=== PATIENT | male | born 1955 | race Caucasian/White ===

== ENCOUNTER → 2016-08-30 | Outpatient (CLI) | payer OTHER, MEDICAID ==
[~2016-08-30] MED LIST: AMLO5 PO; ASPI325T PO; ASPI81TA11 PO; ATOR40TA16 PO; AZIT250T3 PO; BAYETES; CARV6.252 PO; CEFT500T3 PO; COMMODE 3-IN-11 MIS; CYAN1TAB24 PO; DOCU1CAP39 PO; HYDR-3366 PO; HYDR12.57 PO; LEVEMIR SQ; LEVO.1 PO; LISI10TA3 PO; LYRI100C PO; LYRI75CA PO; MELO7.5T4 PO; NORT50CA PO; NOVOLOGP2 SQ; NOVOLOGSS SQ; OMEP20TA PO; PLAV75TA29 PO; SUCR1S PO; SUCR1TAB PO; THERM PO; WALKER WHEELS/F1 MIS; WHEEMIS3
[2016-08-30 16:32] LABS: HEMOGLOBIN A1a 1.2 %; HEMOGLOBIN A1b 1.1 %; HEMOGLOBIN Ao 79.9 %; HEMOGLOBIN F 1.5 %
== END ==
LOC: CLAB 12:14
PROVIDERS: ATTEND Family Medicine
DX: I10 Essential (primary) hypertension (principal); I73.9 Peripheral vascular disease, unspecified; Z89.611 Acquired absence of right leg above knee
CPT/HCPCS: 36415; 83036

== ENCOUNTER 2016-10-17 15:28 | Inpatient (IN) | payer MEDICAID, OTHER ==
[~2016-10-17] VITALS: Ht 182.9 cm; Wt 65.0 kg
[~2016-10-17 15:28] MED LIST changes: -ASPI325T PO; -ASPI81TA11 PO; -AZIT250T3 PO; -CEFT500T3 PO; -LYRI100C PO; -NOVOLOGP2 SQ; -SUCR1S PO; -SUCR1TAB PO
[2016-10-17 15:30] VITALS: BP 81/48; PULSE 87; RESP 12; TEMP 97.4; O2SAT 94
--- NOTE | 2016-10-17 15:34 | PD ---
Physical Exam Date Seen by Provider: Oct 17, 2016 Time Seen by Provider: 15:32 Narrative 61 YOWM C/O DIZZINESS, SOB, BACK PAIN COUGH AND GENERAL MALAISE. SICK FOR 8 DAYS. NO F/C VITALS NOTED. AWAITING BED PLACEMENT Data Data Last Documented VS Vital Signs Date Time Temp Pulse Resp B/P Pulse Ox O2 Delivery O2 Flow Rate FiO2 10/17/16 15:30 97.4 87 12 81/48 94 MDM Medical Record Reviewed: Yes Supervised Visit with ALISSON: Yes Channing Bales Oct 17, 2016 15:34
[2016-10-17 15:40] VITALS: BP 88/51; PULSE 86; RESP 14; TEMP 98.7; O2SAT 96
[2016-10-17] MEDS ORDERED: SODIUM CHLOR 0.9% 1000 ML INJ 1,000 ML IV ONE ×2 (15:48)
--- NOTE | 2016-10-17 15:57 | PD ---
HPI Chief Complaint: Cold / Flu Symptoms Time Seen by Provider: 15:51 Travel History International Travel<30 days: No Contact w/Intl Traveler<30days: No Traveled to known affect area: No History of Present Illness HPI Male presenting to the emergency department for evaluation of hypotension. Patient states his doctor sent him to the emergency department because of his low blood pressure. Additionally patient has been feeling sick for the last 8 days with nausea, coughing. His symptoms started out with a sore throat and nasal congestion which has moved to chest congestion. Patient denies any vomiting or diarrhea. He has mild epigastric abdominal pain. Patient reports that he has been unable to keep his blood sugars down. He is insulin-dependent diabetic he is unsure if he is a type I or type II, he stated that it depends on which Dr. you ask. Patient reports his blood sugars have been 500-600 at times. Patient took all 3 of his blood pressure medications this morning which include lisinopril, carvedilol, amlodipine. PFSH Past Medical History Hx Anticoagulant Therapy: Yes Arthritis: Yes Asthma: No Autoimmune Disease: No Blood Disorders: No Anxiety: Yes Depression: Yes Heart Rhythm Problems: No Cancer: No High Cholesterol: Yes Chemotherapy: No Chest Pain: No Congestive Heart Failure: No COPD: No Cerebrovascular Accident: No Coronary Artery Disease: Yes Diabetes: Yes Diminished Hearing: Yes Gastrointestinal Disorders: Yes (ESOPHAGEAL ULCER?) GERD: Yes Glaucoma: No Genitourinary: No Headaches: No Hepatitis: No Hiatal Hernia: No Hypertension: Yes Immune Disorder: No Implanted Vascular Access Dvce: No Kidney Stones: No Musculoskeletal: Yes (cervical and lumbar spine pt states he has bulging disc) Neurologic: Yes (NEUROPATHY pvd) Psychiatric: No Reproductive: No Respiratory: No Immunizations Current: No Migraines: No Myocardial Infarction: Yes Radiation Therapy: No Renal Failure: No Seizures: Yes (PER PT SECONDARY TO HYPOGLYCEMIA) Sickle Cell Disease: No Sleep Apnea: No Thyroid Disease: Yes Ulcer: No PNEUMOCCOCAL Vaccine (Year): 2 Past Surgical History Abdominal Surgery: Yes (EXP. LEFT BRACHIAL PLEXIS,APPEND., COLECTOMY) AICD: No Appendectomy: Yes Arteriovenous Shunt: No Body Medical Devices: PIN-- RIGHT LEG Cardiac Surgery: Yes (CABGX4) Cholecystectomy: No Coronary Artery Bypass Graft: Yes (2004) Ear Surgery: No Endocrine Surgery: No Eye Surgery: No Genitourinary Surgery: No Gynecologic Surgery: No Insulin Pump: No Joint Replacement: No Neurologic Surgery: No Oral Surgery: No Pacemaker: No Thoracic Surgery: Yes (L5, S1, fusions) Tonsillectomy: Yes Other Surgery: Yes (2 HYDROCELE) Social History Alcohol Use: No Tobacco Use: No (reports quit 12/15/15) Substance Use: No Allergies-Medications (Allergen,Severity, Reaction): Coded Allergies: Morphine (Verified Adverse Reaction, Severe, STS HE BECOMES VIOLENT., ) Uncoded Allergies: UNFRACTIONATED HEPARIN (Adverse Reaction, Severe, PT UNSURE OF REACTION, ) patient states he's not allergic, " I just bleed easily", explained to patient drug's purpose. Reported Meds & Prescriptions Reported Meds & Active Scripts Active Hydrochlorothiazide 12.5 Mg Cap 12.5 Mg PO DAILY Lisinopril 10 Mg Tab 10 Mg PO Q12HR Norvasc (Amlodipine Besylate) 5 Mg Tab 5 Mg PO DAILY Levemir Inj (Insulin Detemir) 1,000 unit/ 10 ML Vial 10 Units SQ HS 30 Days Plavix (Clopidogrel Bisulfate) 75 Mg Tab 75 Mg PO DAILY Synthroid (Levothyroxine Sodium) 100 Mcg Tab 100 Mcg PO DAILY@06 Atorvastatin (Atorvastatin Calcium) 40 Mg Tab 40 Mg PO DAILY Thera M Plus (Multivitamins/Minerals Therapeutic) 1 Tab 1 Tab PO DAILY Dok (Docusate Sodium) 100 Mg Cap 100 Mg PO BID PRN [place] (Hydrocodone-Acetaminophen) 10-325 Mg Tab 1 Tab PO Q6HR Carvedilol 6.25 Mg Tab 6.25 Mg PO BID Omeprazole 20 Mg Tab 20 Mg PO BID Nortriptyline (Nortriptyline HCl) 50 Mg Cap 50 Mg PO HS Reported Novolog Inj (Insulin Aspart) 1,000 Unit/10 Ml Vial Unknown Dose SQ ACHS Max dose at bedtime:( )units; sugars less than 70,(0) units; sugars 150-199,(5) units; sugars 200-249,(10) units; sugars 250-299,(15) units; sugars 300-349,(20)units; sugars greater than 349,(25)units B12 (Cyanocobalamin) 1,000 Mcg Tab 1,000 Mcg PO DAILY Meloxicam 7.5 Mg Tab 7.5 Mg PO DAILY Lyrica (Pregabalin) 75 Mg Cap 75 Mg PO TID Levemir Inj (Insulin Detemir) 1,000 unit/ 10 ML Vial 17 Units SQ AC BREAKFAST Do not mix with any other Insulin. Review of Systems Except as stated in HPI: all other systems reviewed are Neg General / Constitutional: Positive: Other (fatigue), No: Fever HENT: Positive: Sore Throat, Congestion, No: Headaches Cardiovascular: No: Chest Pain or Discomfort, Tachycardia Respiratory: Positive: Cough, Shortness of Breath, Pleuritic Pain Gastrointestinal: Positive: Nausea, Abdominal Pain (discomfort), No: Vomiting , Diarrhea Genitourinary: No: Dysuria Musculoskeletal: No: Myalgias Neurologic: Positive: Weakness, No: Dizziness, Focal Abnormalities, Change in Mentation Physical Exam Narrative GENERAL: Thin, well-developed, alert male. Resting comfortably in no acute distress SKIN: Focused skin assessment warm/dry. HEAD: Atraumatic. Normocephalic. EYES: Pupils equal and round. No scleral icterus. No injection or drainage. ENT: No nasal bleeding or discharge. Mucous membranes pink and moist. NECK: Trachea midline. No JVD. CARDIOVASCULAR: Regular rate and rhythm. No murmur appreciated. RESPIRATORY: No accessory muscle use. Clear to auscultation. Diminished in bases with scattered expiratory wheezing. GASTROINTESTINAL: Abdomen soft, non-tender, nondistended. Hepatic and splenic margins not palpable. MUSCULOSKELETAL: No obvious deformities. No clubbing. No cyanosis. No edema. Right AKA. NEUROLOGICAL: Awake and alert. No obvious cranial nerve deficits. Motor grossly within normal limits. Normal speech. PSYCHIATRIC: Appropriate mood and affect; insight and judgment normal. Data Data Last Documented VS Orders Complete Blood Count With Diff (10/17/16 15:48) Comprehensive Metabolic Panel (10/17/16 15:48) Prothrombin Time / Inr (Pt) (10/17/16 15:48) Act Partial Throm Time (Ptt) (10/17/16 15:48) Lactic Acid Sepsis Protocol (10/17/16 15:48) Magnesium (Mg) (10/17/16 15:48) Ckmb (Isoenzyme) Profile (10/17/16 15:48) Troponin I (10/17/16 15:48) Urinalysis - C+S If Indicated (10/17/16 15:48) Influenzae A/B Antigen (10/17/16 15:48) Blood Culture (10/17/16 15:48) Chest, Pa & Lat (10/17/16 15:48) Blood Glucose (10/17/16 15:48) Ecg Monitoring (10/17/16 15:48) Iv Access Insert/Monitor (10/17/16 15:48) Oximetry (10/17/16 15:48) Oxygen Administration (10/17/16 15:48) Ondansetron Inj (Zofran Inj) (10/17/16 16:00) Sodium Chlor 0.9% 1000 Ml Inj (Ns 1000 M (10/17/16 15:48) Sodium Chlor 0.9% 1000 Ml Inj (Ns 1000 M (10/17/16 15:48) Vancomycin Inj (Vancomycin Inj) (10/17/16 17:39) Piperacil-Tazo 4.5 Gm Premix (Zosyn 4.5 (10/17/16 17:39) Vascular Access Team Consult PRN (10/17/16 18:18) Ct Abd/Pel W Iv Contrast(Rout) (10/17/16 ) Lactic Acid (10/17/16 19:16) Vascular Poc Ultrasound (10/17/16 ) Iohexol 350 Inj (Omnipaque 350 Inj) (10/17/16 20:27) Acetamin-Hydrocod 325-5 Mg ([place] 5-325 (10/17/16 21:15) Diet 1800 Ada Cons Carb (10/18/16 Breakfast) Diet Heart Healthy (10/18/16 Breakfast) Vital Signs (Adult) KARSON.Q4H (10/17/16 21:01) Blood Glucose Goal (Criteria) (10/17/16 21:01) Hypoglycemia 51 - 69 Mg/Dl (10/17/16 21:01) Hypoglycemia 50 Mg/Dl Or < (10/17/16 21:01) Notify Dr: Other (10/17/16 21:01) Dextrose 50% In Jareth (Vial) Inj (D50w (Vi (10/17/16 21:15) Glucagon Inj (Glucagon Inj) (10/17/16 21:15) Insulin Aspart Supplemtl Scale (Novolog (10/18/16 07:00) Sodium Chlor 0.9% 1000 Ml Inj (Ns 1000 M (10/17/16 21:15) Admit Order (Ed Use Only) (10/17/16 21:02) Complete Blood Count With Diff (10/18/16 06:00) Basic Metabolic Panel (Bmp) (10/18/16 06:00) Lactic Acid (10/18/16 06:00) Ondansetron Inj (Zofran Inj) (10/17/16 21:15) Acetaminophen (Tylenol) (10/17/16 21:15) Labs MDM Medical Decision Making Medical Screen Exam Complete: Yes Emergency Medical Condition: Yes Interpretation(s) Last Impressions Chest X-Ray 10/17/16 1548 Signed Impressions: Service Date/Time: Monday, October 17, 2016 16:09 - CONCLUSION: 1. COPD changes. No acute abnormality. Jamil Rocha MD Laboratory Tests Test 10/17/16 10/17/16 16:00 16:15 White Blood Count 13.8 TH/MM3 Red Blood Count 3.88 MIL/MM3 Hemoglobin 11.7 GM/DL Hematocrit 34.6 % Mean Corpuscular Volume 89.3 FL Mean Corpuscular Hemoglobin 30.0 PG Mean Corpuscular Hemoglobin 33.6 % Concent Red Cell Distribution Width 14.5 % Platelet Count 340 TH/MM3 Mean Platelet Volume 8.6 FL Neutrophils (%) (Auto) 80.2 % Lymphocytes (%) (Auto) 13.5 % Monocytes (%) (Auto) 4.8 % Eosinophils (%) (Auto) 0.9 % Basophils (%) (Auto) 0.6 % Neutrophils # (Auto) 11.0 TH/MM3 Lymphocytes # (Auto) 1.9 TH/MM3 Monocytes # (Auto) 0.7 TH/MM3 Eosinophils # (Auto) 0.1 TH/MM3 Basophils # (Auto) 0.1 TH/MM3 CBC Comment DIFF FINAL Differential Comment Prothrombin Time 10.5 SEC Prothromb Time International 1.0 RATIO Ratio Activated Partial 33.9 SEC Thromboplast Time Sodium Level 133 MEQ/L Potassium Level 4.1 MEQ/L Chloride Level 99 MEQ/L Carbon Dioxide Level 20.2 MEQ/L Anion Gap 14 MEQ/L Blood Urea Nitrogen 21 MG/DL Creatinine 1.50 MG/DL Estimat Glomerular Filtration 48 ML/MIN Rate Random Glucose 259 MG/DL Calcium Level 9.0 MG/DL Magnesium Level 2.1 MG/DL Total Bilirubin 0.4 MG/DL Aspartate Amino Transf 8 U/L (AST/SGOT) Alanine Aminotransferase 14 U/L (ALT/SGPT) Alkaline Phosphatase 154 U/L Total Creatine Kinase 32 U/L Troponin I LESS THAN 0.02 NG/ML Total Protein 7.2 GM/DL Albumin 2.9 GM/DL Lactic Acid Level 2.5 mmol/L Vital Signs Date Time Temp Pulse Resp B/P Pulse Ox O2 Delivery O2 Flow Rate FiO2 10/17/16 15:40 98.7 86 14 88/51 96 Room Air 10/17/16 15:30 97.4 87 12 81/48 94 Differential Diagnosis Sepsis versus medication side effects versus pneumonia versus influenza versus DKA versus other Narrative Course Patient's 61-year-old male presenting to the emergency department for evaluation of hypotension as well as cold of flu symptoms and ongoing for several days. Additionally patient's blood sugars have an elevated secondary to the ongoing illness. Labs and imaging ordered and pending, IV access initiated, patient placed on monitor monitoring and continuous pulse oximetry. CBC shows an elevated white count at 13.8 with left shift History of elevated BUN and creatinine at 21 and 1.50, lactic acid 2.5, troponin less than 0.02, glucose 259 Coags reviewed and unremarkable Influenza screen is negative for flu a or B Chest x-ray shows COPD changes with no acute abnormality. CT scan abdomen and pelvis ordered and pending. Repeat lactic acid ordered and pending. Repeat lactic acid 2.5, Dr. Araya reviewed CT scan of the abdomen and pelvis and does not believe that the source of infection. [facility] paged for admission under observation for IV fluids and to monitor blood cultures. Dr. Nobles returned page and accepted admission. Pt agreeable to stay. Pt placed under obs to assess blood cultures and labs. Sepsis Criteria SIRS Criteria (2 or more): WBC > 11406, < 4000 or > 10% bands Severe Sepsis (+one): Hypotension, Lactate >2, Acute Oliguria/Renal Failure Criteria Outcome: Meets severe sepsis criteria Diagnosis Primary Impression: Sepsis Qualified Code: A41.9 - Sepsis, due to unspecified organism Admitting Information Admitting Physician Requests: Observation Scripts Cefuroxime (Ceftin)500 Mg [id number] Mg PO BID #10 TAB Ref 0 Prov:Ross Armendariz 10/19/16 Azithromycin 250 Mg [id number] Mg PO DAILY #5 TAB Ref 0 Prov:Ross Armendariz DELFINO 10/19/16 Condition: Stable Cary Monroy DERMATOLOGY PHYSICIAN ASSISTANT Oct 17, 2016 15:57 Platelet Count 340 TH/MM3 Mean Platelet Volume 8.6 FL Neutrophils (%) (Auto) 80.2 % Lymphocytes (%) (Auto) 13.5 % Monocytes (%) (Auto) 4.8 % Eosinophils (%) (Auto) 0.9 % Basophils (%) (Auto) 0.6 % Neutrophils # (Auto) 11.0 TH/MM3 Lymphocytes # (Auto) 1.9 TH/MM3 Monocytes # (Auto) 0.7 TH/MM3 Eosinophils # (Auto) 0.1 TH/MM3 Basophils # (Auto) 0.1 TH/MM3 CBC Comment DIFF FINAL Differential Comment Prothrombin Time 10.5 SEC Prothromb Time International 1.0 RATIO Ratio Activated Partial 33.9 SEC Thromboplast Time Sodium Level 133 MEQ/L Potassium Level 4.1 MEQ/L Chloride Level 99 MEQ/L Carbon Dioxide Level 20.2 MEQ/L Anion Gap 14 MEQ/L Blood Urea Nitrogen 21 MG/DL Creatinine 1.50 MG/DL Estimat Glomerular Filtration 48 ML/MIN Rate Random Glucose 259 MG/DL Calcium Level 9.0 MG/DL Magnesium Level 2.1 MG/DL Total Bilirubin 0.4 MG/DL Aspartate Amino Transf 8 U/L (AST/SGOT) Alanine Aminotransferase 14 U/L (ALT/SGPT) Alkaline Phosphatase 154 U/L Total Creatine Kinase 32 U/L Troponin I LESS THAN 0.02 NG/ML Total Protein 7.2 GM/DL Albumin 2.9 GM/DL Lactic Acid Level 2.5 mmol/L Vital Signs Date Time Temp Pulse Resp B/P Pulse Ox O2 Delivery O2 Flow Rate FiO2 10/17/16 15:40 98.7 86 14 88/51 96 Room Air 10/17/16 15:30 97.4 87 12 81/48 94 Differential Diagnosis Sepsis versus medication side effects versus pneumonia versus influenza versus DKA versus other Narrative Course Patient's 61-year-old male presenting to the emergency department for evaluation of hypotension as well as cold of flu symptoms and ongoing for several days. Additionally patient's blood sugars have an elevated secondary to the ongoing illness. Labs and imaging ordered and pending, IV access initiated, patient placed on monitor monitoring and continuous pulse oximetry. CBC shows an elevated white count at 13.8 with left shift History of elevated BUN and creatinine at 21 and 1.50, lactic acid 2.5, troponin less than 0.02, glucose 259 Coags reviewed and unremarkable Influenza screen is negative for flu a or B Chest x-ray shows COPD changes with no acute abnormality. CT scan abdomen and pelvis ordered and pending. Repeat lactic acid ordered and pending. Repeat lactic acid 2.5, Dr. Araya reviewed CT scan of the abdomen and pelvis and does not believe that the source of infection. [facility] paged for admission under observation for IV fluids and to monitor blood cultures. Sepsis Criteria SIRS Criteria (2 or more): WBC > 99213, < 4000 or > 10% bands Severe Sepsis (+one): Hypotension, Lactate >2, Acute Oliguria/Renal Failure Criteria Outcome: Meets severe sepsis criteria Diagnosis Primary Impression: Sepsis Qualified Code: A41.9 - Sepsis, due to unspecified organism Admitting Information Admitting Physician Requests: Observation Condition: Stable Cary Monroy [facility] Oct 17, 2016 15:57
[2016-10-17] MEDS ORDERED: ONDANSETRON HCL 4 MG/2 ML VIAL IV ONE (16:00)
[2016-10-17 16:11] LABS: BASOPHIL # 0.1 TH/MM3 (0-0.2); BASOPHIL % 0.6 % (0.0-2.0); EOSINOPHIL # 0.1 TH/MM3 (0-0.4); EOSINOPHIL % 0.9 % (0.0-4.0); HEMATOCRIT 34.6 % (39.0-51.0); HEMO FLAGS DIFF FINAL; LYMPH % 13.5 % (9.0-44.0); LYMPHOCYTE # 1.9 TH/MM3 (1.0-4.8); MEAN CELL VOLUME 89.3 FL (80.0-100.0); MEAN CORPUSCULAR HGB CONC 33.6 % (32.0-36.0); MONO % 4.8 % (0.0-8.0); NEUT % 80.2 % (16.0-70.0); PLATELET COUNT 340 TH/MM3 (150-450); RED BLOOD COUNT 3.88 MIL/MM3 (4.50-5.90); RED CELL DISTRIBUTION WIDTH 14.5 % (11.6-17.2); WHITE BLOOD COUNT 13.8 TH/MM3 (4.0-11.0)
[2016-10-17 16:22] LABS: APTT (PATIENT) 33.9 SEC (24.3-30.1); PROTHROMBIN TIME - PATIENT 10.5 SEC (9.8-11.6)
[2016-10-17] MEDS ORDERED: NOVOLOGP2 SQ (16:25)
[2016-10-17 16:35] LABS: ALT (GPT) 14 U/L (12-78); ANION GAP 14 MEQ/L (5-15); AST (GOT) 8 U/L (15-37); BICARBONATE 20.2 MEQ/L (21.0-32.0); BLOOD UREA NITROGEN 21 MG/DL (7-18); CHLORIDE 99 MEQ/L (98-107); GLOMERULAR FILTRATION RATE 48 ML/MIN (>89); MAGNESIUM 2.1 MG/DL (1.5-2.5); POTASSIUM 4.1 MEQ/L (3.5-5.1); SODIUM (NA) 133 MEQ/L (136-145)
[2016-10-17 16:38] LABS: ALKALINE PHOSPHATASE 154 U/L (45-117); TOTAL BILIRUBIN ADULT 0.4 MG/DL (0.2-1.0)
[2016-10-17 16:41] LABS: CREATINE KINASE 32 U/L (39-308)
--- NOTE | 2016-10-17 16:54 | RADRPT ---
EXAM DATE/TIME: 10/17/2016 16:09 [facility] COMPARISON: FOOT RIGHT COMPLETE ([id number]), June 12, 2016, 11:17. INDICATIONS : Low blood pressure, Weakness and Cough. MEDICAL HISTORY : Venous insufficiency. Hypertension. Myocardial infarction. SURGICAL HISTORY : CABG. Left lower leg amputation. ENCOUNTER: Initial ACUITY: 2 days PAIN SCORE: 0/10 LOCATION: Bilateral chest FINDINGS: The heart is normal in size. The patient is post median sternotomy. There are COPD changes. The lungs are otherwise clear. The visualized osseous structures demonstrate degenerative changes but are othe rwise intact. CONCLUSION: 1. COPD changes. No acute abnormality. Jamil Rocha MD on October 17, 2016 at 16:52 Board Certified Radiologist. This report was verified electronically.
[2016-10-17] MEDS ORDERED: VANCOMYCIN INJ 1,000 MG in SODIUM CHLOR 0.9% 250 ML INJ 250 ML IV STA (17:39)
[2016-10-17] MEDS ORDERED: PIPERACIL-TAZO 4.5 GM PREMIX 100 ML IV STA (17:39)
[2016-10-17 18:14] LABS: BLOOD, URINE NEG (NEG); GLUCOSE,URINE 1000 mg/dL (NEG); HYALINE CAST, URINE 7 /lpf (RARE); KETONE, URINE 150 mg/dL (NEG); NITRITE,URINE NEG (NEG); URINE COLOR YELLOW (YELLW/STRAW)
[2016-10-17 18:22] LABS: LACTIC ACID GHOST NOT REPORTABLE
[2016-10-17 18:25] LABS: COMMENT (UR) CATH-CULT NOT IND; CULTURE IF INDICATED CATH CULTURE NOT IND
[2016-10-17] MEDS ORDERED: IOHEXOL 350 MG/ML 10 ML VIAL (for RAD DIAG) IV ONE (20:27)
[2016-10-17 21:00] VITALS: BP 111/52; PULSE 95; RESP 16; O2SAT 95
[2016-10-17] MEDS ORDERED: DEXTROSE 50% IN WATER 50 ML VIAL(D50) IV PUSH PRN (21:15)
[2016-10-17] MEDS ORDERED: ONDANSETRON HCL 4 MG/2 ML VIAL IV PUSH PRN (21:15)
[2016-10-17] MEDS ORDERED: ACETAMINOPHEN/HYDROcodone 325 MG/5 MG TAB PO ONE (21:15)
[2016-10-17] MEDS ORDERED: GLUCAGON 1 MG/ML VIAL OTHER PRN (21:15)
--- NOTE | 2016-10-17 21:17 | RADRPT ---
EXAM DATE/TIME: 10/17/2016 20:00 [facility] COMPARISON: CT ABDOMEN & PELVIS W CONTRAST, June 21, 2015, 9:19. INDICATIONS : Epigastric abdomen pain,nausea. IV CONTRAST: 80 cc Omnipaque 350 (iohexol) IV ORAL CONTRAST: No oral contrast ingested. RADIATION DOSE: 6.90 CTDIvol (mGy) MEDICAL HISTORY : Seizures. Cardiovascular disease Hypertension.Diabetes SURGICAL HISTORY : Appendectomy. CABG ENCOUNTER: Initial ACUITY: 1 week PAIN SCALE: 7/10 LOCATION: epigastric abdomen TECHNIQUE: Volumetric scanning of the abdomen and pelvis was performed. Using automated exposure control and ad justment of the mA and/or kV according to patient size, radiation dose was kept as low as reasonably achievable to obtain optimal diagnostic quality images. FINDINGS: LOWER LUNGS: Abnormal appearance to the right lower lobe with diffuse areas of nodular opacity and some consolidat ion in the costophrenic angle. There is a smaller area of similar appearing opacity in the left lowe r lobe. No evidence of pleural effusion. LIVER: Homogeneous density without lesion. There is no dilation of the biliary tree. The gallbladder is no t identified with certainty; no hemoclips in the arpit however. SPLEEN: Normal size without lesion. PANCREAS: Within normal limits. KIDNEYS: Normal in size and shape. There is no mass, stone or hydronephrosis. ADRENAL GLANDS: Within normal limits. VASCULAR: Extensive wall calcification in nondilated abdominal aortic and iliac vessels. BOWEL/MESENTERY: No dilated loops of small or large bowel. Anastomosis sutures seen in the right lower quadrant in th e colon. Gas is seen diffusely throughout non-dilated loops of small bowel. ABDOMINAL WALL: Within normal limits. RETROPERITONEUM: There is no lymphadenopathy. BLADDER: No wall thickening or mass. REPRODUCTIVE: Within normal limits. INGUINAL: There is no lymphadenopathy or hernia. MUSCULOSKELETAL: Transpedicular screws in the lower lumbar spine. Diffuse osteopenia. CONCLUSION: 1. Abnormal appearance the lower lungs with patchy areas of nodular and partially consolidative infil trates. 2. No acute abnormalities seen in the abdomen or pelvis. Ananth Messina MD on October 17, 2016 at 21:03 Board Certified Radiologist. This report was verified electronically.
[2016-10-17] MEDS: SODIUM CHLOR 0.9% 1000 ML INJ 1,000 ML IV SCH (22:24)
[2016-10-17 22:40] VITALS: BP 101/56; PULSE 89; RESP 20; TEMP 100.1; O2SAT 93
[2016-10-17] MEDS: ACETAMINOPHEN 325 MG TAB PO PRN (22:52)
[2016-10-18] MEDS ORDERED: ACETAMINOPHEN/HYDROcodone 325 MG/10 MG TAB PO SCH (01:00)
[2016-10-18] MEDS: INSULIN DETEMIR 100 UNITS/ML VIAL SQ SCH ×3 (01:13→20:26)
[2016-10-18] MEDS: ACETAMINOPHEN/HYDROcodone 325 MG/10 MG TAB PO PRN ×3 (01:14→17:37)
[2016-10-18] MEDS ORDERED: RESP: ALBUTEROL 2.5 MG/IPRATROPIUM 0.5 MG NEB (PRN) NEB ×2 (02:15→16:00)
--- NOTE | 2016-10-18 02:38 | HHI.HP ---
[facility] Service [facility] Primary Care Physician Ro Vogel MD Admission Diagnosis SEPSIS UNKNOWN SOURCE Diagnoses: (1) Pneumonia Diagnosis: Principal Chief Complaint: cough Travel History International Travel<30 Days: No Contact w/Intl Traveler <30 Da: No Traveled to Known Affected Are: No Sepsis Criteria SIRS Criteria (2 or more): Heart rate over 90, WBC > 67533, < 4000 or > 10% bands Severe Sepsis (+one): Hypotension History of Present Illness patient is a 61 y/o male with history of CAD,diabetes, PVD who presented to ER with cough. he says that he's had this cough for the past eight days. cough is productive of yellowish sputum. he doesn't report any fevers but had some night sweats.he denies any chest pain, abdominal pain,vomiting, diarrhea. he says that his roommate was sick and ' that's probably how he got the flu'.he says that he has on and off sob along with his cough.he was hypotensive at the time of presentation to ER which improved after IV hydration. Review of Systems Constitutional: COMPLAINS OF: Night Sweats, DENIES: Fever, Weight loss, Chills Eyes: DENIES: Blurred vision, Diplopia, Vision loss, Double Vision Ears, nose, mouth, throat: DENIES: Tinnitus, Vertigo, Throat pain, Epistaxis Respiratory: COMPLAINS OF: Cough, Sputum production, Shortness of breath, DENIES: Apneas, Snoring, Wheezing, Hemoptysis Cardiovascular: DENIES: Chest pain, Palpitations, Syncope, Dyspnea on Exertion , PND, Lower Extremity Edema, Orthopnea, Claudication Gastrointestinal: DENIES: Abdominal pain, Black stools, Bloody stools, Constipation, Diarrhea, Nausea, Vomiting, Difficulty Swallowing, Anorexia Genitourinary: DENIES: Urinary frequency, Urgency, Hematuria, Dysuria Musculoskeletal: DENIES: Joint pain, Muscle aches, Stiffness, Joint Swelling Integumentary: DENIES: Rash Neurologic: DENIES: Abnormal gait, Headache, Localized weakness, Paresthesias, Seizures, Speech Problems, Tremor, Poor Balance Psychiatric: DENIES: Anxiety, Confusion, Mood changes, Depression, Hallucinations, Agitation, Suicidal Ideation, Homicidal Ideation, Delusions Past Family Social History Past Medical History CAD hypertension diabetes mellitus hypothyroidism PVD dyslipidemia Past Surgical History CABG right AKA abdominal surgery Reported Medications Hydrochlorothiazide 12.5 Mg Cap 12.5 Mg PO DAILY Lisinopril 10 Mg Tab 10 Mg PO Q12HR Norvasc (Amlodipine Besylate) 5 Mg Tab 5 Mg PO DAILY Levemir Inj (Insulin Detemir) 1,000 unit/ 10 ML Vial 10 Units SQ HS 30 Days Plavix (Clopidogrel Bisulfate) 75 Mg Tab 75 Mg PO DAILY Synthroid (Levothyroxine Sodium) 100 Mcg Tab 100 Mcg PO DAILY@06 Atorvastatin (Atorvastatin Calcium) 40 Mg Tab 40 Mg PO DAILY Thera M Plus (Multivitamins/Minerals Therapeutic) 1 Tab 1 Tab PO DAILY Dok (Docusate Sodium) 100 Mg Cap 100 Mg PO BID PRN [place] (Hydrocodone-Acetaminophen) 10-325 Mg Tab 1 Tab PO Q6HR Carvedilol 6.25 Mg Tab 6.25 Mg PO BID Omeprazole 20 Mg Tab 20 Mg PO BID Nortriptyline (Nortriptyline HCl) 50 Mg Cap 50 Mg PO HS Novolog Inj (Insulin Aspart) 1,000 Unit/10 Ml Vial Unknown Dose SQ ACHS Max dose at bedtime:( )units; sugars less than 70,(0) units; sugars 150-199,(5) units; sugars 200-249,(10) units; sugars 250-299,(15) units; sugars 300-349,(20)units; sugars greater than 349,(25)units B12 (Cyanocobalamin) 1,000 Mcg Tab 1,000 Mcg PO DAILY Meloxicam 7.5 Mg Tab 7.5 Mg PO DAILY Lyrica (Pregabalin) 75 Mg Cap 75 Mg PO TID Levemir Inj (Insulin Detemir) 1,000 unit/ 10 ML Vial 17 Units SQ AC BREAKFAST Do not mix with any other Insulin. Allergies: Coded Allergies: Morphine (Verified Adverse Reaction, Severe, STS HE BECOMES VIOLENT., ) Uncoded Allergies: UNFRACTIONATED HEPARIN (Adverse Reaction, Severe, PT UNSURE OF REACTION, ) patient states he's not allergic, " I just bleed easily", explained to patient drug's purpose. Active Ordered Medications Current Medications Ondansetron HCl 4 mg 4 mg ONCE ONCE IV Last administered on 10/17/16 16:24; Start 10/17/16 at 16:00; Stop 10/17/16 at 16:01; Status DC Sodium Chloride 1,000 ml @ 1,000 mls/hr Q1H ONCE IV Last administered on 16:24; Start 10/17/16 at 15:48; Stop 10/17/16 at 16:47; Status DC Sodium Chloride 1,000 ml @ 1,000 mls/hr Q1H ONCE IV Last administered on 16:24; Start 10/17/16 at 15:48; Stop 10/17/16 at 16:47; Status DC Vancomycin HCl 1000 mg/Sodium Chloride 250 ml @ 250 mls/hr ONCE STAT IV Last administered on 10/17/16 20:27; Start 10/17/16 at 17:39; Stop 10/17/16 at 18:38; Status DC Piperacillin Sod/ Tazobactam Sod (Zosyn 4.5 Gm Premix) 100 ml @ 200 mls/hr ONCE STAT IV Last administered on 10/17/16 18:06; Start 10/17/16 at 17:39; Stop 10/17/16 at 18:08; Status DC Iohexol (Omnipaque 350 Inj) 80 ml STK-MED ONCE IV Last administered on 20:27; Start 10/17/16 at 20:27; Stop 10/17/16 at 20:28; Status DC Acetaminophen/ Hydrocodone Bitart ([place] 5-325 Mg) 1 tab ONCE ONCE PO Last administered on 10/17/16 21:07; Start 10/17/16 at 21:15; Stop 10/17/16 at 21:16; Status DC Dextrose (D50w (Vial) Inj) 25 ml UNSCH PRN IV PUSH HYPOGLYCEMIA-SEE COMMENTS; Start 10/17/16 at 21:15 Glucagon (Glucagon Inj) 1 mg UNSCH PRN OTHER HYPOGLYCEMIA-SEE COMMENTS; Start 10/17/16 at 21:15 Insulin Aspart 1 1 ACHS SLIDING SCALE SQ ; Start 10/18/16 at 07:00 Sodium Chloride (NS 1000 ml Inj) 1,000 ml @ 100 mls/hr Q10H IV Last administered on 10/17/16 22:24; Start 10/17/16 at 21:15 Ondansetron HCl (Zofran Inj) 4 mg Q8HR PRN IV PUSH NAUSEA; Start 10/17/16 at 21: 15 Acetaminophen (Tylenol) 650 mg Q4H PRN PO FEVER Last administered on 10/17/16 22:52; Start 10/17/16 at 21:15 Insulin Detemir (Levemir Inj) 10 units HS SQ Last administered on 10/18/16 01: 13; Start 10/18/16 at 00:30 Acetaminophen/ Hydrocodone Bitart ([place] 10-325 Mg) 1 tab Q6HR PO ; Start at 01:00; Stop 10/18/16 at 01:01; Status DC Acetaminophen/ Hydrocodone Bitart ([place] 10-325 Mg) 1 tab Q6HR PRN PO PAIN Last administered on 10/18/16 01:14; Start 10/18/16 at 01:00 Family History not relevant to this presentation. Social History quit smoking.doesn't drink. Physical Exam Vital Signs Vital Signs Date Time Temp Pulse Resp B/P Pulse Ox O2 Delivery O2 Flow Rate FiO2 10/18/16 00:05 20 10/17/16 22:40 100.1 89 20 101/56 93 10/17/16 21:00 95 16 111/52 95 Room Air 10/17/16 16:05 97 Room Air 10/17/16 15:40 98.7 86 14 88/51 96 Room Air 10/17/16 15:30 97.4 87 12 81/48 94 Physical Exam GENERAL: This is a well-nourished, well-developed patient, in no apparent distress. SKIN: No rashes, ecchymoses or lesions. Cool and dry. HEAD: Atraumatic. Normocephalic. No temporal or scalp tenderness. EYES: Pupils equal round and reactive. Extraocular motions intact. No scleral icterus. No injection or drainage. ENT: Nose without bleeding, purulent drainage or septal hematoma. Throat without erythema, tonsillar hypertrophy or exudate. Uvula midline. Airway patent. NECK: Trachea midline. No JVD or lymphadenopathy. Supple, nontender, no meningeal signs. CARDIOVASCULAR: Regular rate and rhythm without murmurs, gallops, or rubs. RESPIRATORY: Clear to auscultation. Breath sounds equal bilaterally. No wheezes , rales, or rhonchi. GASTROINTESTINAL: Abdomen soft, non-tender, nondistended. No hepato-splenomegaly , or palpable masses. No guarding. MUSCULOSKELETAL: s/p right AKA NEUROLOGICAL: Awake and alert. Cranial nerves II through XII intact. Motor and sensory grossly within normal limits. Five out of 5 muscle strength in all muscle groups. Normal speech. Laboratory Laboratory Tests Test 10/17/16 10/17/16 10/17/16 10/17/16 16:00 16:15 17:45 19:55 White Blood Count 13.8 Red Blood Count 3.88 Hemoglobin 11.7 Hematocrit 34.6 Mean Corpuscular Volume 89.3 Mean Corpuscular Hemoglobin 30.0 Mean Corpuscular Hemoglobin 33.6 Concent Red Cell Distribution Width 14.5 Platelet Count 340 Mean Platelet Volume 8.6 Neutrophils (%) (Auto) 80.2 Lymphocytes (%) (Auto) 13.5 Monocytes (%) (Auto) 4.8 Eosinophils (%) (Auto) 0.9 Basophils (%) (Auto) 0.6 Neutrophils # (Auto) 11.0 Lymphocytes # (Auto) 1.9 Monocytes # (Auto) 0.7 Eosinophils # (Auto) 0.1 Basophils # (Auto) 0.1 CBC Comment DIFF FINAL Differential Comment Prothrombin Time 10.5 Prothromb Time International 1.0 Ratio Activated Partial 33.9 Thromboplast Time Sodium Level 133 Potassium Level 4.1 Chloride Level 99 Carbon Dioxide Level 20.2 Anion Gap 14 Blood Urea Nitrogen 21 Creatinine 1.50 Estimat Glomerular Filtration 48 Rate Random Glucose 259 Calcium Level 9.0 Magnesium Level 2.1 Total Bilirubin 0.4 Aspartate Amino Transf 8 (AST/SGOT) Alanine Aminotransferase 14 (ALT/SGPT) Alkaline Phosphatase 154 Total Creatine Kinase 32 Troponin I LESS THAN 0.02 Total Protein 7.2 Albumin 2.9 Lactic Acid Level 2.5 2.5 Urine Color YELLOW Urine Turbidity CLEAR Urine pH 5.0 Urine Specific [place] 1.016 Urine Protein NEG Urine Glucose (UA) 1000 Urine Ketones 150 Urine Occult Blood NEG Urine Nitrite NEG Urine Bilirubin NEG Urine Urobilinogen LESS THAN 2.0 Urine Leukocyte Esterase NEG Urine RBC LESS THAN 1 Urine WBC 2 Urine Hyaline Casts 7 Microscopic Urinalysis Comment CATH-CULT NOT IND Date/Time Procedure Status Source Growth 10/17/16 17:45 Influenza Types A,B Antigen (AARON) - Final Complete Nasal Washing NEGATIVE FOR FLU A AND B ANTIGEN.... 10/17/16 16:20 Aerobic Blood Culture Received Blood Peripheral Pending 10/17/16 16:20 Anaerobic Blood Culture Received Blood Peripheral Pending Result Diagram: 10/17/16 1600 10/17/16 1600 Imaging Last Impressions Chest X-Ray 10/17/16 1548 Signed Impressions: Service Date/Time: Monday, October 17, 2016 16:09 - CONCLUSION: 1. COPD changes. No acute abnormality. Jamil Rocha MD Abdomen/Pelvis CT 10/17/16 0000 Signed Impressions: Service Date/Time: Monday, October 17, 2016 20:00 - CONCLUSION: 1. Abnormal appearance the lower lungs with patchy areas of nodular and partially consolidative infiltrates. 2. No acute abnormalities seen in the abdomen or pelvis. Ananth Messina MD Assessment and Plan Assessment and Plan A/P - severe sepsis ( tachycardia/ leukocytosis/ hypotension) due to pneumonia continue with IV antibiotics- follow the blood cultures-will consider CT chest if no clinical improvement or persistent fever -COPD; neb treatment -acute kidney injury; continue IV fluid-monitor the renal function -CAD/ PVD; continue plavix -history of hypertension; hold BP meds due to hypotension at the time of presentation- will monitor the BP for now -diabetes mellitus; resume home insulin regimen- accu-check with SSI -hypothyroidism; resume home meds -DVT prophylaxis; SCD's -consult PT Discussed Condition With ER and the patient. Problem Qualifiers (1) Pneumonia: Qualified Code: J18.9 - Pneumonia of both lower lobes due to infectious organism Debra Tinsley MD Oct 18, 2016 02:38
[2016-10-18] MEDS: cefTRIAXone INJ 1,000 MG in SODIUM CHLORIDE 0.9% INJ 100 ML IV SCH (02:47)
[2016-10-18] MEDS: AZITHROMYCIN INJ 500 MG in SODIUM CHLOR 0.9% 250 ML INJ 250 ML IV SCH (03:26)
[2016-10-18 03:34] VITALS: BP 106/59; PULSE 75; RESP 18; TEMP 97.8; O2SAT 95
[2016-10-18 05:01] LABS: AUTOMATED NEUTROPHIL # 10.1 TH/MM3 (1.8-7.7); BASOPHIL # 0.1 TH/MM3 (0-0.2); EOSINOPHIL # 0.3 TH/MM3 (0-0.4); EOSINOPHIL % 2.3 % (0.0-4.0); HEMATOCRIT 25.9 % (39.0-51.0); HEMO FLAGS DIFF FINAL; LYMPHOCYTE # 2.2 TH/MM3 (1.0-4.8); MEAN CELL VOLUME 89.2 FL (80.0-100.0); MEAN CORPUSCULAR HEMOGLOBIN 29.9 PG (27.0-34.0); MEAN CORPUSCULAR HGB CONC 33.6 % (32.0-36.0); MONO % 6.3 % (0.0-8.0); NEUT % 74.4 % (16.0-70.0); PLATELET COUNT 268 TH/MM3 (150-450); RED BLOOD COUNT 2.91 MIL/MM3 (4.50-5.90); RED CELL DISTRIBUTION WIDTH 14.3 % (11.6-17.2); WHITE BLOOD COUNT 13.6 TH/MM3 (4.0-11.0)
[2016-10-18 05:29] LABS: BICARBONATE 22.3 MEQ/L (21.0-32.0)
[2016-10-18 05:39] LABS: POTASSIUM 4.1 MEQ/L (3.5-5.1)
[2016-10-18] MEDS: LEVOTHYROXINE SODIUM 100 MCG TAB PO SCH (06:15)
[2016-10-18] MEDS: INSULIN ASPART SUPPLEMENTAL SCALE SQ SCH ×4 (06:25→20:26)
[2016-10-18 08:50] VITALS: BP 115/56; PULSE 89; RESP 16; TEMP 98.6; O2SAT 96
[2016-10-18] MEDS ORDERED: PNEUMOCOCCAL POLYVALENT INJ 25 MCG/0.5 ML SYR IM ONE (09:00)
[2016-10-18] MEDS: CLOPIDOGREL 75 MG TAB PO SCH (09:12)
[2016-10-18] MEDS: PANTOPRAZOLE SOD 20 MG DELAYED RELEASE TAB PO SCH ×2 (09:12→20:26)
[2016-10-18] MEDS: ATORVASTATIN 40 MG TAB PO SCH (09:12)
[2016-10-18] MEDS: PREGABALIN 75 MG CAP PO SCH ×3 (09:12→18:07)
[2016-10-18] MEDS: SODIUM CHLOR 0.9% 1000 ML INJ 1,000 ML IV SCH ×2 (09:15→17:38)
[2016-10-18 10:59] VITALS: BP 127/62; PULSE 92; RESP 18; TEMP 99.6; O2SAT 93
[2016-10-18 12:35] LABS: HEMATOCRIT 27.5 % (39.0-51.0); REVIEW FLAG FINAL
--- NOTE | 2016-10-18 14:00 | HHI.PR ---
Subjective Remarks Follow-up for pneumonia. Patient continues to complain of cough, productive with yellow sputum. He denies any fevers or chills. He states that he has some mild shortness of breath. He quit smoking last year, denies any COPD. Objective Vitals Vital Signs Date Time Temp Pulse Resp B/P Pulse Ox O2 Delivery O2 Flow Rate FiO2 10/18/16 10:59 99.6 92 18 127/62 93 10/18/16 10:12 20 10/18/16 10:12 20 10/18/16 08:50 98.6 89 16 115/56 96 10/18/16 03:34 97.8 75 18 106/59 95 10/18/16 00:05 20 10/17/16 22:40 100.1 89 20 101/56 93 10/17/16 21:00 95 16 111/52 95 Room Air 10/17/16 16:05 97 Room Air 10/17/16 15:40 98.7 86 14 88/51 96 Room Air 10/17/16 15:30 97.4 87 12 81/48 94 I/O 10/17/16 10/17/16 10/17/16 10/18/16 10/18/16 10/18/16 07:00 15:00 23:00 07:00 15:00 23:00 Output Total 300 ml Balance -300 ml Output Urine Total 300 ml # Voids 1 Result Diagram: 10/18/16 1213 10/18/16 0450 Imaging Last Impressions Chest X-Ray 10/17/16 1548 Signed Impressions: Service Date/Time: Monday, October 17, 2016 16:09 - CONCLUSION: 1. COPD changes. No acute abnormality. Jamil Rocha MD Abdomen/Pelvis CT 10/17/16 0000 Signed Impressions: Service Date/Time: Monday, October 17, 2016 20:00 - CONCLUSION: 1. Abnormal appearance the lower lungs with patchy areas of nodular and partially consolidative infiltrates. 2. No acute abnormalities seen in the abdomen or pelvis. Ananth Messina MD Objective Remarks GENERAL: Well-developed well-nourished. In no acute distress. SKIN: Warm and dry. No lesions noted. HEENT: Normocephalic. Pupils equal and round. Mucous membranes pink and moist. CARDIOVASCULAR: Regular rate and rhythm. No murmur appreciated. RESPIRATORY: No accessory muscle use. Clear to auscultation. Breath sounds equal bilaterally. GASTROINTESTINAL: Abdomen soft, non-tender, nondistended. Bowel sounds x4. MUSCULOSKELETAL: Right AKA. No clubbing or cyanosis. No edema. NEUROLOGICAL: Awake and alert. No focal neurological deficits. Moves upper and lower extremities spontaneously. Normal speech. PSYCHIATRIC: Appropriate mood and affect; insight and judgment normal. A/P Problem List: (1) Pneumonia ICD Code: J18.9 Status: Acute Assessment and Plan 61-year-old male with past medical history of CAD, PVD, HTN, DM, HLD who presented with cough Severe sepsis: Source pneumonia. Tachycardia, leukocytosis, hypotension on admission. Lactic acid 2.5 down to 2.1. Blood cultures with NGTD. Continue IV antibiotics as below. Community-acquired pneumonia: Imaging reviewed: Chest x-ray shows changes consistent with COPD, no acute abnormality. Abdominal CT showed abnormal appearance of the lower lungs with patchy areas of nodular impartially consolidative infiltrates. -IV azithromycin and ceftriaxone -O2 and nebs as needed -Check urinary antigens and sputum culture -Acapella -Guaifenesin Hypotension with history of hypertension: Improving with IVF. Home BP meds were held. Reintroduce home blood pressure medications as tolerated. Acute kidney injury: Creatinine 1.5, improved to 1.03 with IVF. Hold lisinopril and HCTZ. Improving. Follow-up labs in the a.m. Diabetes mellitus: Continue home Levemir. Additional sliding scale coverage. Monitor Accu-Cheks. Anemia, acute on chronic: Normocytic. Hemoglobin 11.7 decreased to 8.7 overnight. Repeat hemoglobin 9.4, appears stable of this time. Possibly hemodilution component. No signs of acute blood loss at this time. Follow-up CBC. Other chronic medical conditions are stable at this time and will continue home medications as indicated. Problem Qualifiers (1) Pneumonia: Qualified Code: J18.9 - Pneumonia of both lower lobes due to infectious organism Ross Armendariz Oct 18, 2016 14:00
[2016-10-18] MEDS: guaiFENesin E.R. 600 MG TAB PO SCH ×2 (14:24→20:26)
[2016-10-18] MEDS: amLODIPine BESYLATE 5 MG TAB PO SCH (14:24)
[2016-10-18 15:30] VITALS: BP 113/55; PULSE 85; RESP 16; TEMP 98.1; O2SAT 95
[2016-10-18] MEDS: ACETAMINOPHEN 325 MG TAB PO PRN (18:11)
[2016-10-18 19:50] VITALS: BP 117/62; PULSE 78; RESP 18; TEMP 98.1; O2SAT 95
[2016-10-18] MEDS: CARVEDILOL 6.25 MG TAB PO SCH (20:26)
[2016-10-18] MEDS ORDERED: NORTRIPTYLINE HCL 25 MG CAP PO SCH (21:00)
[2016-10-19] VITALS: BP 135/70; PULSE 70; RESP 20; TEMP 98.4; O2SAT 96
[2016-10-19] MEDS: ACETAMINOPHEN/HYDROcodone 325 MG/10 MG TAB PO PRN ×3 (00:07→12:30)
[2016-10-19] MEDS: cefTRIAXone INJ 1,000 MG in SODIUM CHLORIDE 0.9% INJ 100 ML IV SCH (02:22)
[2016-10-19] MEDS: AZITHROMYCIN INJ 500 MG in SODIUM CHLOR 0.9% 250 ML INJ 250 ML IV SCH (03:11)
[2016-10-19] MEDS: SODIUM CHLOR 0.9% 1000 ML INJ 1,000 ML IV SCH ×2 (03:15→12:15)
[2016-10-19 04:00] VITALS: BP 122/65; PULSE 77; RESP 20; TEMP 98.8; O2SAT 96
[2016-10-19] MEDS: LEVOTHYROXINE SODIUM 100 MCG TAB PO SCH (06:00)
[2016-10-19] MEDS: INSULIN ASPART SUPPLEMENTAL SCALE SQ SCH ×2 (06:01→12:14)
[2016-10-19] MEDS: INSULIN DETEMIR 100 UNITS/ML VIAL SQ SCH (06:01)
[2016-10-19 07:30] VITALS: BP 143/74; PULSE 84; RESP 20; TEMP 98.5; O2SAT 94
[2016-10-19] MEDS: guaiFENesin E.R. 600 MG TAB PO SCH (09:26)
[2016-10-19] MEDS: CARVEDILOL 6.25 MG TAB PO SCH (09:26)
[2016-10-19] MEDS: amLODIPine BESYLATE 5 MG TAB PO SCH (09:26)
[2016-10-19] MEDS: PANTOPRAZOLE SOD 20 MG DELAYED RELEASE TAB PO SCH (09:26)
[2016-10-19] MEDS: PREGABALIN 75 MG CAP PO SCH ×2 (09:26→12:14)
[2016-10-19] MEDS: CLOPIDOGREL 75 MG TAB PO SCH (09:26)
[2016-10-19] MEDS: ATORVASTATIN 40 MG TAB PO SCH (09:26)
[2016-10-19 10:08] LABS: AUTOMATED NEUTROPHIL # 7.9 TH/MM3 (1.8-7.7); BASOPHIL # 0.1 TH/MM3 (0-0.2); BASOPHIL % 0.6 % (0.0-2.0); EOSINOPHIL # 0.3 TH/MM3 (0-0.4); EOSINOPHIL % 2.9 % (0.0-4.0); HEMATOCRIT 31.5 % (39.0-51.0); HEMO FLAGS DIFF FINAL; LYMPHOCYTE # 1.8 TH/MM3 (1.0-4.8); MEAN CELL VOLUME 88.1 FL (80.0-100.0); MEAN CORPUSCULAR HEMOGLOBIN 29.8 PG (27.0-34.0); MEAN CORPUSCULAR HGB CONC 33.9 % (32.0-36.0); MONO % 4.8 % (0.0-8.0); NEUT % 74.7 % (16.0-70.0); PLATELET COUNT 297 TH/MM3 (150-450); RED BLOOD COUNT 3.58 MIL/MM3 (4.50-5.90); RED CELL DISTRIBUTION WIDTH 14.3 % (11.6-17.2); WHITE BLOOD COUNT 10.5 TH/MM3 (4.0-11.0)
--- NOTE | 2016-10-19 10:45 | HHI.PR ---
Subjective Remarks Follow-up for pneumonia. The patient continues to have cough, but sputum has become more clear. He denies any fevers or chills. Tolerating diet. He would like to go home as soon as he is able. Objective Vitals Vital Signs Date Time Temp Pulse Resp B/P Pulse Ox O2 Delivery O2 Flow Rate FiO2 10/19/16 07:30 98.5 84 20 143/74 94 10/19/16 04:00 98.8 77 20 122/65 96 10/19/16 02:17 20 10/19/16 00:00 98.4 70 20 135/70 96 10/18/16 20:34 20 10/18/16 19:50 98.1 78 18 117/62 95 10/18/16 18:37 16 10/18/16 15:30 98.1 85 16 113/55 95 10/18/16 10:59 99.6 92 18 127/62 93 Result Diagram: 10/19/16 0935 10/18/16 0450 Imaging Last Impressions Chest X-Ray 10/17/16 1548 Signed Impressions: Service Date/Time: Monday, October 17, 2016 16:09 - CONCLUSION: 1. COPD changes. No acute abnormality. Jamil Rocha MD Abdomen/Pelvis CT 10/17/16 0000 Signed Impressions: Service Date/Time: Monday, October 17, 2016 20:00 - CONCLUSION: 1. Abnormal appearance the lower lungs with patchy areas of nodular and partially consolidative infiltrates. 2. No acute abnormalities seen in the abdomen or pelvis. Ananth Messina MD Objective Remarks GENERAL: Well-developed well-nourished. In no acute distress. SKIN: Warm and dry. No lesions noted. HEENT: Normocephalic. Pupils equal and round. Mucous membranes pink and moist. CARDIOVASCULAR: Regular rate and rhythm. No murmur appreciated. RESPIRATORY: No accessory muscle use. Clear to auscultation. Breath sounds slightly diminished in the bases. GASTROINTESTINAL: Abdomen soft, non-tender, nondistended. Bowel sounds x4. MUSCULOSKELETAL: Right AKA. No clubbing or cyanosis. No edema. NEUROLOGICAL: Awake and alert. No focal neurological deficits. Moves upper and lower extremities spontaneously. Normal speech. PSYCHIATRIC: Appropriate mood and affect; insight and judgment normal. A/P Problem List: (1) Pneumonia ICD Code: J18.9 Status: Acute Assessment and Plan 61-year-old male with past medical history of CAD, PVD, HTN, DM, HLD who presented with cough Severe sepsis: Source pneumonia. Tachycardia, leukocytosis, hypotension on admission. Lactic acid 2.5 down to 2.1. Blood cultures with NGTD. Continue antibiotics as below. Improved. Community-acquired pneumonia: Imaging reviewed: Chest x-ray shows changes consistent with COPD, no acute abnormality. Abdominal CT showed abnormal appearance of the lower lungs with patchy areas of nodular impartially consolidative infiltrates. -IV azithromycin and ceftriaxone, transition to oral antibiotics at discharge -O2 and nebs as needed -Acapella -Guaifenesin Hypotension with history of hypertension: Improving with IVF. Home BP meds were held. Reintroduce home blood pressure medications as tolerated. Acute kidney injury: Creatinine 1.5, improved to 1.03 with IVF. Hold lisinopril and HCTZ for now. Improving. Follow-up labs today pending. Diabetes mellitus: Continue home Levemir. Additional sliding scale coverage. Monitor Accu-Cheks. Anemia, acute on chronic: Normocytic. Hemoglobin did initially decreased strength hospitalization, but has stabilized. Possibly hemodilution component. No signs of acute blood loss at this time. Improved. Other chronic medical conditions are stable at this time and will continue home medications as indicated. Written by Ross Armendariz, acting as scribe for Dr. Beavers on 10/19/16 at 10:44. All or portions of this note were transcribed by scribe DELFINO Nicolas. I, Dr. Inocencio Beavers personally performed the history, physical exam, and medical decision making; and confirmed the accuracy of the information in the transcribed note. Authenticated by Dr. Inocencio Beavers on 10/20/16 at 00:13. Discharge Planning Likely discharge planning later today on oral antibiotics if blood cultures negative 48 hours. Problem Qualifiers (1) Pneumonia: Qualified Code: J18.9 - Pneumonia of both lower lobes due to infectious organism Ross Armendariz Oct 19, 2016 10:45 Ladan Beavers DO Oct 20, 2016 00:14
[2016-10-19] MEDS ORDERED: CEFT500T3 PO (10:47)
[2016-10-19] MEDS ORDERED: AZIT250T3 PO (10:47)
[2016-10-19 10:48] LABS: ALKALINE PHOSPHATASE 129 U/L (45-117); ALT (GPT) 11 U/L (12-78); ANION GAP 7 MEQ/L (5-15); AST (GOT) 11 U/L (15-37); BICARBONATE 28.1 MEQ/L (21.0-32.0); BLOOD UREA NITROGEN 6 MG/DL (7-18); CHLORIDE 103 MEQ/L (98-107); GLOMERULAR FILTRATION RATE 119 ML/MIN (>89); POTASSIUM 3.7 MEQ/L (3.5-5.1); SODIUM (NA) 138 MEQ/L (136-145); TOTAL BILIRUBIN ADULT 0.3 MG/DL (0.2-1.0)
[2016-10-19 11:41] VITALS: BP 133/64; PULSE 69; RESP 20; TEMP 98.3; O2SAT 93
[2016-11-14] MEDS ORDERED: NOVOLOGP2 SQ (11:26)
[2016-11-14] MEDS ORDERED: LEVEMIR SQ (11:26)
[2016-11-16] MEDS ORDERED: CARV6.252 PO (15:36)
[2016-12-05] MEDS ORDERED: OMEP20TA PO (12:12)
[2016-12-05] MEDS ORDERED: THERM PO (12:12)
[2016-12-05] MEDS ORDERED: ASPI325T PO (12:13)
[2016-12-05] MEDS ORDERED: SUCR1TAB PO (12:36)
[2016-12-06] MEDS ORDERED: LYRI100C PO (11:14)
[2016-12-25] MEDS ORDERED: LEVO.1 PO (13:23)
[2016-12-26] MEDS ORDERED: ATOR40TA16 PO (09:27)
[2016-12-29] MEDS ORDERED: PLAV75TA29 PO (11:58)
[2017-01-05] MEDS ORDERED: LEVEMIR SQ (09:14)
== END 2016-10-19 15:13 | disposition home or self-care (01) | DRG 871 ==
LOC: NEPA 15:28 → NEDA 21:04 → NEPGCP 22:38 → OBSVTOIN 10-18 08:07
PROVIDERS: ADMIT Hospitalist; ATTEND Hospitalist
DX: A41.9 Sepsis, unspecified organism (principal); J18.9 Pneumonia, unspecified organism; N17.9 Acute kidney failure, unspecified; I95.9 Hypotension, unspecified; Z89.611 Acquired absence of right leg above knee; J44.0 Chronic obstructive pulmonary disease with (acute) lower respiratory infection; E11.9 Type 2 diabetes mellitus without complications; I10 Essential (primary) hypertension; D64.9 Anemia, unspecified; Z79.4 Long term (current) use of insulin; Z23 Encounter for immunization; I25.10 Atherosclerotic heart disease of native coronary artery without angina pectoris; Z95.1 Presence of aortocoronary bypass graft; I25.2 Old myocardial infarction; G62.9 Polyneuropathy, unspecified; M19.90 Unspecified osteoarthritis, unspecified site; F41.9 Anxiety disorder, unspecified; F32.9 Major depressive disorder, single episode, unspecified; E78.00 Pure hypercholesterolemia, unspecified; H91.90 Unspecified hearing loss, unspecified ear; K21.9 Gastro-esophageal reflux disease without esophagitis; E07.9 Disorder of thyroid, unspecified; Z87.891 Personal history of nicotine dependence; Z87.19 Personal history of other diseases of the digestive system; E03.9 Hypothyroidism, unspecified; E78.5 Hyperlipidemia, unspecified; I73.9 Peripheral vascular disease, unspecified; R65.20 Severe sepsis without septic shock; R00.0 Tachycardia, unspecified
CPT/HCPCS: 71020; 74177; 80048; 80053; 81001; 82550; 82948; 83605; 83735; 84484; 85014; 85018; 85025; 85610; 85730; 87040; 87804; 90732; 94667; 94668; 96361; 96365; 96366; 96374; 96375; G0378; J0456; J0696; J1815; J2405; J2543; J3370; J7030; J7050; Q9967

== ENCOUNTER 2016-11-23 15:16 | Inpatient (IN) | payer MEDICAID, OTHER ==
[2016-11-23] VITALS (10 sets, daily range): BP systolic 79–127; BP diastolic 47–69; PULSE 86–96; RESP 16–24; TEMP 98.4; O2SAT 89–100
[~2016-11-23] VITALS: Ht 182.9 cm; Wt 60.0 kg
[~2016-11-23 15:16] MED LIST changes: -BAYETES; -COMMODE 3-IN-11 MIS; +NOVOLOGP2 SQ; -NOVOLOGSS SQ; -WALKER WHEELS/F1 MIS; -WHEEMIS3
[2016-11-23] MEDS ORDERED: SODIUM CHLOR 0.9% 1000 ML INJ 1,000 ML IV SCH ×2 (15:25→18:00)
--- NOTE | 2016-11-23 15:29 | PD ---
HPI Chief Complaint: Diabetic Time Seen by Provider: 15:25 Travel History International Travel<30 days: No Contact w/Intl Traveler<30days: No Traveled to known affect area: No History of Present Illness HPI This is a 61-year-old male who presents to the emergency department having been brought in by his family for weakness. He says his blood sugars have been running high all day. He says he's been very weak over the past 3 days and has had some vomiting and abdominal discomfort, constant, moderate severity, with no associated fevers or chills. He's been trying to give himself insulin all day but he's not getting any better. He denies any diarrhea. PFSH Past Medical History Hx Anticoagulant Therapy: Yes Arthritis: Yes Asthma: No Autoimmune Disease: No Blood Disorders: No Anxiety: Yes Depression: Yes Heart Rhythm Problems: No Cancer: No Cardiovascular Problems: Yes High Cholesterol: Yes Chemotherapy: No Chest Pain: No Congestive Heart Failure: No COPD: No Cerebrovascular Accident: No Coronary Artery Disease: Yes Diabetes: Yes Diminished Hearing: Yes Endocrine: Yes Gastrointestinal Disorders: Yes (ESOPHAGEAL ULCER?stricture, stretch 1 1/2 yr ago) GERD: Yes Glaucoma: No Genitourinary: No Headaches: No Hepatitis: No Hiatal Hernia: No Hypertension: Yes Immune Disorder: No Implanted Vascular Access Dvce: Yes Kidney Stones: No Musculoskeletal: Yes (cervical and lumbar spine pt states he has bulging disc R AKA) Neurologic: Yes (NEUROPATHY pvd) Psychiatric: No Reproductive: No Respiratory: No Immunizations Current: No Migraines: No Myocardial Infarction: Yes Radiation Therapy: No Renal Failure: No Seizures: Yes (PER PT SECONDARY TO HYPOGLYCEMIA) Sickle Cell Disease: No Sleep Apnea: No Thyroid Disease: Yes Ulcer: No PNEUMOCCOCAL Vaccine (Year): 2 Past Surgical History Abdominal Surgery: Yes (EXP. LEFT BRACHIAL PLEXIS,APPEND., COLECTOMY) AICD: No Appendectomy: Yes Arteriovenous Shunt: No Body Medical Devices: Right leg amputaion wears prosthesis Cardiac Surgery: Yes (CABGX4) Cholecystectomy: No Coronary Artery Bypass Graft: Yes (2004) Ear Surgery: No Endocrine Surgery: No Eye Surgery: No Genitourinary Surgery: No Gynecologic Surgery: No Insulin Pump: No Joint Replacement: No Neurologic Surgery: No Oral Surgery: No Pacemaker: No Thoracic Surgery: Yes (L5, S1, fusions) Tonsillectomy: Yes Other Surgery: Yes (2 HYDROCELE) Social History Alcohol Use: No Tobacco Use: No (reports quit 12/15/15) Substance Use: No Allergies-Medications (Allergen,Severity, Reaction): Coded Allergies: Morphine (Verified Adverse Reaction, Severe, STS HE BECOMES VIOLENT., ) Uncoded Allergies: UNFRACTIONATED HEPARIN (Adverse Reaction, Severe, PT UNSURE OF REACTION, ) patient states he's not allergic, " I just bleed easily", explained to patient drug's purpose. Reported Meds & Prescriptions Reported Meds & Active Scripts Active Carvedilol 6.25 Mg Tab 6.25 Mg PO BID Novolog Inj (Insulin Aspart) 1,000 Unit/10 Ml Vial 10 Units SQ ACHS Max dose at bedtime:( )units; sugars less than 70,(0) units; sugars 150-199,(2) units; sugars 200-249,(4) units; sugars 250-299,(6) units; sugars 300-349,(8)units; sugars greater than 349,(10)units Levemir Inj (Insulin Detemir) 1,000 unit/ 10 ML Vial 10 Units SQ AC BREAKFAST Do not mix with any other Insulin. Hydrochlorothiazide 12.5 Mg Cap 12.5 Mg PO DAILY Lisinopril 10 Mg Tab 10 Mg PO Q12HR Norvasc (Amlodipine Besylate) 5 Mg Tab 5 Mg PO DAILY Plavix (Clopidogrel Bisulfate) 75 Mg Tab 75 Mg PO DAILY Synthroid (Levothyroxine Sodium) 100 Mcg Tab 100 Mcg PO DAILY@06 Atorvastatin (Atorvastatin Calcium) 40 Mg Tab 40 Mg PO DAILY Thera M Plus (Multivitamins/Minerals Therapeutic) 1 Tab 1 Tab PO DAILY Dok (Docusate Sodium) 100 Mg Cap 100 Mg PO BID PRN [place] (Hydrocodone-Acetaminophen) 10-325 Mg Tab 1 Tab PO Q6HR Omeprazole 20 Mg Tab 20 Mg PO BID Nortriptyline (Nortriptyline HCl) 50 Mg Cap 50 Mg PO HS Reported B12 (Cyanocobalamin) 1,000 Mcg Tab 1,000 Mcg PO DAILY Meloxicam 7.5 Mg Tab 7.5 Mg PO DAILY Lyrica (Pregabalin) 75 Mg Cap 75 Mg PO TID Review of Systems Except as stated in HPI: all other systems reviewed are Neg Physical Exam Narrative GENERAL: Ill-appearing SKIN: Dry with skin tenting HEAD: Atraumatic. Normocephalic. EYES: Pupils equal and round. No injection or drainage. ENT: Dry mucous membranes NECK: Trachea midline. CARDIOVASCULAR: Tachycardic No murmur appreciated. RESPIRATORY: Clear to auscultation. Breath sounds equal bilaterally. Small respirations. GASTROINTESTINAL: Abdomen soft, non-tender, nondistended. MUSCULOSKELETAL: No obvious deformities. NEUROLOGICAL: Awake and alert. No obvious cranial nerve deficits. Moving all extremities. PSYCHIATRIC: Appropriate mood and affect; insight and judgment normal. Data Data Last Documented VS Vital Signs Date Time Temp Pulse Resp B/P Pulse Ox O2 Delivery O2 Flow Rate FiO2 11/23/16 17:44 96 20 116/69 100 11/23/16 15:20 Room Air Orders Complete Blood Count With Diff (11/23/16 15:25) Comprehensive Metabolic Panel (11/23/16 15:25) Lipase (11/23/16 15:25) Prothrombin Time / Inr (Pt) (11/23/16 15:25) Act Partial Throm Time (Ptt) (11/23/16 15:25) Urinalysis - C+S If Indicated (11/23/16 15:25) Iv Access Insert/Monitor (11/23/16 15:25) Ecg Monitoring (11/23/16 15:25) Oximetry (11/23/16 15:25) Sodium Chlor 0.9% 1000 Ml Inj (Ns 1000 M (11/23/16 15:25) Sodium Chloride 0.9% Flush (Ns Flush) (11/23/16 15:30) Beta Hydroxybutyrate (Acetone) (11/23/16 15:25) Blood Gas Venous (Vbg) (11/23/16 15:25) Sodium Chlor 0.9% 1000 Ml Inj (Ns 1000 M (11/23/16 15:30) Electrocardiogram (11/23/16 ) Vascular Access Team Consult/P PRN (11/23/16 15:36) Vascular Poc Ultrasound (11/23/16 ) Blood Culture (11/23/16 15:56) Lactic Acid (11/23/16 15:56) Vancomycin Inj (Vancomycin Inj) (11/23/16 16:45) Cefepime Inj (Maxipime Inj) (11/23/16 16:45) Chest, Single Ap (11/23/16 ) Cath For Specimen (11/23/16 17:08) Certified Massage Therapist / Telemetry [email or web address] (11/23/16 17:09) ^ Insert Iv (11/23/16 17:09) Diet Npo (11/23/16 Dinner) Sodium Chlor 0.9% 1000 Ml Inj (Ns 1000 M (11/23/16 17:09) Dext 5%-Nacl 0.9% 1000 Ml Inj (D5w-Ns 10 (11/23/16 17:09) Insulin Human Regular Inj (Novolin R Inj (11/23/16 17:15) Insulin Regular (Iv Infusion) (Novolin R (11/23/16 17:15) Potassium Chlor 40 Meq Premix (Kcl 40 Me (11/23/16 17:15) Potassium Chlor 40 Meq Premix (Kcl 40 Me (11/23/16 17:15) Potassium Chlor 20 Meq Premix (Kcl 20 Me (11/23/16 17:15) Potassium Chlor 20 Meq Premix (Kcl 20 Me (11/23/16 17:15) Potassium Chlor 20 Meq Premix (Kcl 20 Me (11/23/16 17:15) Potassium Chlor 20 Meq Premix (Kcl 20 Me (11/23/16 17:15) Potassium Chlor 20 Meq Premix (Kcl 20 Me (11/23/16 17:15) Potassium Chlor 20 Meq Premix (Kcl 20 Me (11/23/16 17:15) Sodium Bicarbonate 8.4% Inj (Sodium Bica (11/23/16 17:15) Sodium Bicarbonate 8.4% Inj (Sodium Bica (11/23/16 17:15) Sodium Phosphate Inj (Sodium Phosphate I (11/23/16 17:15) Hemoglobin (Hgb) A1c (11/23/16 17:09) Basic Metabolic Panel (Bmp) (11/23/16 22:09) Basic Metabolic Panel (Bmp) (11/24/16 04:09) Basic Metabolic Panel (Bmp) (11/24/16 10:09) Basic Metabolic Panel (Bmp) (11/24/16 16:09) Magnesium (Mg) (11/23/16 22:09) Magnesium (Mg) (11/24/16 04:09) Magnesium (Mg) (11/24/16 10:09) Magnesium (Mg) (11/24/16 16:09) Phosphorus (Po4) (11/23/16 22:09) Phosphorus (Po4) (11/24/16 04:09) Phosphorus (Po4) (11/24/16 10:09) Phosphorus (Po4) (11/24/16 16:09) Beta Hydroxybutyrate (Acetone) (11/24/16 04:09) Beta Hydroxybutyrate (Acetone) (11/24/16 16:09) Ct Abd/Pel W/O Iv Contrast (11/23/16 ) Admit Order (Ed Use Only) (11/23/16 17:58) Sodium Chlor 0.9% 1000 Ml Inj (Ns 1000 M (11/23/16 18:00) Labs Laboratory Tests Test 11/23/16 11/23/16 15:50 16:00 White Blood Count 19.7 TH/MM3 Red Blood Count 3.31 MIL/MM3 Hemoglobin 10.0 GM/DL Hematocrit 32.5 % Mean Corpuscular Volume 98.1 FL Mean Corpuscular Hemoglobin 30.1 PG Mean Corpuscular Hemoglobin 30.7 % Concent Red Cell Distribution Width 16.1 % Platelet Count 225 TH/MM3 Mean Platelet Volume 9.6 FL Neutrophils (%) (Auto) 83.5 % Lymphocytes (%) (Auto) 9.2 % Monocytes (%) (Auto) 6.9 % Eosinophils (%) (Auto) 0.1 % Basophils (%) (Auto) 0.3 % Neutrophils # (Auto) 16.4 TH/MM3 Lymphocytes # (Auto) 1.8 TH/MM3 Monocytes # (Auto) 1.4 TH/MM3 Eosinophils # (Auto) 0.0 TH/MM3 Basophils # (Auto) 0.1 TH/MM3 CBC Comment DIFF FINAL Differential Comment Prothrombin Time 11.4 SEC Prothromb Time International 1.0 RATIO Ratio Activated Partial 31.2 SEC Thromboplast Time Sodium Level 124 MEQ/L Potassium Level 4.2 MEQ/L Chloride Level 84 MEQ/L Carbon Dioxide Level 11.5 MEQ/L Anion Gap 29 MEQ/L Blood Urea Nitrogen 54 MG/DL Creatinine 2.51 MG/DL Estimat Glomerular Filtration 26 ML/MIN Rate Random Glucose 780 MG/DL Lactic Acid Level 9.8 mmol/L Calcium Level 8.1 MG/DL Total Bilirubin 0.3 MG/DL Aspartate Amino Transf 39 U/L (AST/SGOT) Alanine Aminotransferase 26 U/L (ALT/SGPT) Alkaline Phosphatase 139 U/L Total Protein 6.3 GM/DL Albumin 3.3 GM/DL Lipase 1778 U/L B-Hydroxybutyrate 6.25 MMOL/L Blood Gas Puncture Site CL Blood Gas Patient Temperature 98.6 Venous Blood pH 7.22 Venous Blood Partial Pressure 24 mmHg CO2 Venous Blood Partial Pressure 26 mmHg O2 Venous Blood HCO3 9 mmol/L Venous Blood Oxygen Saturation 36 % Venous Blood Oxygen Content 4.9 Vol % Venous Blood Base Excess -17.0 mmol/L Oxygen Delivery Device RA MDM Medical Decision Making Medical Screen Exam Complete: Yes Emergency Medical Condition: Yes Interpretation(s) Hypotensive, tachypneic Leukocytosis Mild anemia Hyponatremia Renal insufficiency Hyperglycemia Lactic acid is 9.8 Lipase is 1778 ABG: Anion gap metabolic acidosis with respiratory compensation Beta hydroxybutyrate is 6.25 Urinalysis: No infection Chest x-ray: No acute process Differential Diagnosis Diabetic ketoacidosis, pneumonia, urinary tract infection, sepsis, pancreatitis Narrative Course This is a 61-year-old male who presents to the emergency department with generalized weakness, vomiting and abdominal pain. He is very ill-appearing on exam, lethargic and tachypneic. He was placed on a monitor and an IV was established. He is found to be hypotensive. I established 2 18-gauge IVs in his external jugular veins. He was given 2 L of IV fluid and his blood pressure responded. He was covered with broad-spectrum antibiotics and cultures were obtained. Labs were obtained which demonstrate a white count of 19, renal insufficiency and a lactic acid of 9.8 consistent with severe sepsis. Patient's lipase is 1778. This may reflect necrotizing pancreatitis. He is also in DKA with an anion gap of 29 and beta hydroxybutyrate of 6. He was started on an insulin drip. A dry CT will be obtained to evaluate the patient' s abdomen and he will be admitted to the intensive care unit for further monitoring. Critical Care Narrative Aggregate critical care time was 50 minutes. Time to perform other separately billable procedures was not included in the critical care time. My time did not include minutes spent treating any other patients simultaneously or on activities that did not directly contribute to the patient's treatment. The services I provided to this patient were to treat and/or prevent clinically significant deterioration that could result in: Disability, I provided critical care services requiring my management, as noted below: Chart data review, documentation time, medication orders and management, vital sign assessments/reviewing monitor data, ordering and reviewing lab tests, ordering and interpreting/reviewing x-rays and diagnostic studies, care of the patient and discussion of the patient with the admitting physicians. Physician Communication Physician Communication Discussed with Dr. Evangelista Diagnosis Primary Impression: Severe sepsis Additional Impression: DKA (diabetic ketoacidoses) Qualified Code: E13.10 - Diabetic ketoacidosis without coma associated with type 2 diabetes mellitus Admitting Information Admitting Physician Requests: Admit Emily Erickson MD November 23, 2016 15:29
[2016-11-23] MEDS ORDERED: SODIUM CHLORIDE 0.9% FLUSH 10 ML FLUSH IV FLUSH PRN (15:30)
[2016-11-23] MEDS ORDERED: SODIUM CHLOR 0.9% 1000 ML INJ 1,000 ML IV ONE (15:30)
[2016-11-23 16:20] LABS: BLOOD GAS VENOUS HCO3 9 mmol/L (22-26); BLOOD GAS VENOUS O2 CONTENT 4.9 Vol % (9.0-17.0); BLOOD GAS VENOUS O2 HGB SAT 36 % (70-76); BLOOD GAS VENOUS PCO2 24 mmHg (44-48); BLOOD GAS VENOUS PO2 26 mmHg (35-40); BLOOD GAS VENOUS pH 7.22 (7.360-7.400); TEMP CORR TO 98.6
[2016-11-23 16:21] LABS: CRITICAL VALUE YES; DRAW SITE CL; OXYGEN DEVICE RA
[2016-11-23 16:26] LABS: AUTOMATED NEUTROPHIL # 16.4 TH/MM3 (1.8-7.7); BASOPHIL # 0.1 TH/MM3 (0-0.2); BASOPHIL % 0.3 % (0.0-2.0); EOSINOPHIL % 0.1 % (0.0-4.0); HEMATOCRIT 32.5 % (39.0-51.0); HEMO FLAGS DIFF FINAL; LYMPH % 9.2 % (9.0-44.0); LYMPHOCYTE # 1.8 TH/MM3 (1.0-4.8); MEAN CELL VOLUME 98.1 FL (80.0-100.0); MEAN CORPUSCULAR HEMOGLOBIN 30.1 PG (27.0-34.0); MEAN CORPUSCULAR HGB CONC 30.7 % (32.0-36.0); MONO % 6.9 % (0.0-8.0); NEUT % 83.5 % (16.0-70.0); PLATELET COUNT 225 TH/MM3 (150-450); RED BLOOD COUNT 3.31 MIL/MM3 (4.50-5.90); RED CELL DISTRIBUTION WIDTH 16.1 % (11.6-17.2); WHITE BLOOD COUNT 19.7 TH/MM3 (4.0-11.0)
[2016-11-23 16:35] LABS: APTT (PATIENT) 31.2 SEC (24.3-30.1); PROTHROMBIN TIME - PATIENT 11.4 SEC (9.8-11.6)
[2016-11-23] MEDS ORDERED: VANCOMYCIN INJ 1,000 MG in SODIUM CHLOR 0.9% 250 ML INJ 250 ML IV ONE (16:45)
[2016-11-23] MEDS ORDERED: CEFEPIME INJ 2,000 MG in SODIUM CHLORIDE 0.9% INJ 100 ML IV ONE (16:45)
[2016-11-23 16:51] LABS: ALT (GPT) 26 U/L (12-78); ANION GAP 29 MEQ/L (5-15); AST (GOT) 39 U/L (15-37); BICARBONATE 11.5 MEQ/L (21.0-32.0); BLOOD UREA NITROGEN 54 MG/DL (7-18); CHLORIDE 84 MEQ/L (98-107); GLOMERULAR FILTRATION RATE 26 ML/MIN (>89); POTASSIUM 4.2 MEQ/L (3.5-5.1)
[2016-11-23 16:55] LABS: ALKALINE PHOSPHATASE 139 U/L (45-117); TOTAL BILIRUBIN ADULT 0.3 MG/DL (0.2-1.0)
[2016-11-23 16:59] LABS: SODIUM (NA) 124 MEQ/L (136-145)
[2016-11-23 17:01] LABS: BETA-HYDROXYBUTYRATE 6.25 MMOL/L (0.00-0.39)
[2016-11-23] MEDS ORDERED: INSULIN REGULAR (IV INFUSION) 100 UNITS in SODIUM CHLORIDE 0.9% INJ 99 ML IV SCH (17:15)
[2016-11-23] MEDS ORDERED: POTASSIUM CHLOR 20 MEQ PREMIX 100 ML IV PRN ×5 (17:15)
[2016-11-23] MEDS ORDERED: SODIUM PHOSPHATE INJ 15 MMOL in SODIUM CHLORIDE 0.9% INJ 100 ML IV PRN (17:15)
[2016-11-23] MEDS ORDERED: INSULIN HUMAN REGULAR 1,000 UNITS/10 ML VIAL IV PUSH ONE (17:15)
[2016-11-23] MEDS ORDERED: POTASSIUM CHLOR 40 MEQ PREMIX 100 ML IV PRN ×2 (17:15)
[2016-11-23] MEDS ORDERED: SODIUM BICARBONATE 8.4% SOLN 50 MEQ/50 ML VIAL IV PRN ×2 (17:15)
--- NOTE | 2016-11-23 17:34 | RADRPT ---
EXAM DATE/TIME: 11/23/2016 17:07 [facility] COMPARISON: CHEST SINGLE AP, May 08, 2016, 15:23. INDICATIONS : Fever. MEDICAL HISTORY : None. SURGICAL HISTORY : CABG. ENCOUNTER: Initial ACUITY: 1 day PAIN SCORE: 0/10 LOCATION: Bilateral chest FINDINGS: A single view of the chest demonstrates the lungs to be symmetrically aerated without evidence of mas s, infiltrate or effusion. The patient is rotated leftward which distorts the mediastinal structures the heart size is normal. Findings of prior CABG. Osseous structures are intact. CONCLUSION: No acute cardiopulmonary process to explain current clinical symptoms. Tyler Lopez MD on November 23, 2016 at 17:30 Board Certified Radiologist. This report was verified electronically.
[2016-11-23] MEDS: SODIUM CHLOR 0.9% 1000 ML INJ 1,000 ML IV SCH ×2 (17:39→23:40)
[2016-11-23] MEDS: POTASSIUM CHLOR 20 MEQ PREMIX 100 ML IV PRN ×2 (17:53→20:15)
--- NOTE | 2016-11-23 17:56 | EKG ---
Date Performed: 11/23/2016 Time Performed: 15:38:00 PTAGE: 61 years EKG: ATRIAL FLUTTER/TACHYCARDIA SEPTAL MYOCARDIAL INFARCTION ST ELEVATION, CONSIDER ANTERIOR INJ URY ACUTE SD COMPARED TO PRIOR ELECTROCARDIOGRAM, Acute anterior injury is present. PREVIOUS TRACING : 06/17/2016 03.43 DOCTOR: Kendrick Montalvo Interpretating Date/Time 11/23/2016 17:55:46
[2016-11-23 18:34] LABS: BACTERIA, URINE RARE /hpf; BLOOD, URINE NEG (NEG); COMMENT (UR) CULT NOT INDICATED; CULTURE IF INDICATED CULT NOT INDICATED; GLUCOSE,URINE 1000 mg/dL (NEG); KETONE, URINE 10 mg/dL (NEG); MUCUS URINE FEW /lpf (OCC); NITRITE,URINE NEG (NEG); SQUAMOUS EPITHELIAL CELL URINE <1 /hpf (0-5); URINE COLOR LIGHT-YELLOW (YELLW/STRAW)
--- NOTE | 2016-11-23 19:14 | HHI.HP ---
HPI Service Critical Care Medicine Primary Care Physician Ro Vogel MD Admission Diagnosis sepsis, dka Diagnosis: Travel History International Travel<30 Days: No Contact w/Intl Traveler <30 Da: No Traveled to Known Affected Are: No History of Present Illness History from patient is somewhat limited due to lethargy. He is oriented but is very slow to answer questions and is not able to provide a lot of details about medical history. 61-year-old with past medical history of insulin-dependent diabetes mellitus, coronary artery disease with prior CABG, peripheral arterial disease status post right AKA. He states that he has a 3 day history of malaise, vomiting, abdominal discomfort. He states his glucose has been running high and he has been trying to administer insulin but has not been able to get his glucose down. He states he vomited three times, nonbloody nonbilious. Denies diarrhea. He presented to [facility] emergency department and was in DKA with VBG with a pH of 7.22/PaCO2 24. Bicarbonate is 11, creatinine 2.51 with BUN of 54. Glucose is 780. Lactic acid 9.8. Lipase is elevated at 1778. WBC 19. Past Family Social History Allergies: Coded Allergies: Morphine (Verified Adverse Reaction, Severe, STS HE BECOMES VIOLENT., ) Uncoded Allergies: UNFRACTIONATED HEPARIN (Adverse Reaction, Severe, PT UNSURE OF REACTION, ) patient states he's not allergic, " I just bleed easily", explained to patient drug's purpose. Past Medical History Diabetes Hypertension Coronary artery disease status post CABG Hypothyroidism Peripheral neuropathy B-12 deficiency Hyperlipidemia Past Surgical History Right lower extremity bypass surgery CABG L5-S1 surgery appendectomy R AKA Reported Medications Lisinopril 10 mg by mouth every 12 hours Lyrica 75 mg by mouth 3 times a day Nortriptyline 50's by mouth daily at bedtime Carvedilol 6.5 mill grams by mouth twice a day Colace 100 mg by mouth twice a day Norvasc 5 mg by mouth daily Atorvastatin 40 mg by mouth daily Insulin N 10 units subcutaneous before meals at bedtime Detemir 10 units subcutaneous before meals Multivitamin daily Meloxicam 7.5 mill grams by mouth daily Hydrocodone 10/325 one by mouth every 6 hours Plavix any 5 mg by mouth daily Omeprazole 20 mg by mouth B twice a day HCTZ 12.5 mill grams by mouth daily Synthroid 100 [place] grams by mouth daily B-12 1000 g daily Family History Denies except significant family medical history Social History He has smoked a pack of cigarettes per day for over 30 years Denies alcohol or illicit drug use Lives alone. Uses a wheelchair at baseline status post right AKA Physical Exam Vital Signs Vital Signs Date Time Temp Pulse Resp B/P Pulse Ox O2 Delivery O2 Flow Rate FiO2 11/23/16 17:44 96 20 116/69 100 11/23/16 16:25 87 20 91/55 11/23/16 15:29 100 11/23/16 15:23 87 18 100 11/23/16 15:20 86 24 79/47 100 Room Air Physical Exam Blood pressure 109/51 pulse 92, sinus rhythm on the monitor sats 100% on room air GENERAL: Thin well-developed male who is laying in ED stretcher SKIN: Warm and dry. HEAD: Atraumatic. Normocephalic. EYES: Pupils equal and round 3 mm and reactive bilaterally. No scleral icterus. No injection or drainage. ENT: No nasal bleeding or discharge. Mucous membranes dry. Poor dentition. NECK: Trachea midline. Jugular veins are flat. There is a right EJ in place CARDIOVASCULAR: Regular rate and rhythm, sinus rhythm on the monitor. No murmurs rubs or gallops. RESPIRATORY: No accessory muscle use. Clear to auscultation. Breath sounds equal bilaterally. No wheezes Rales or rhonchi. On room air GASTROINTESTINAL: Abdomen soft, scaphoid with vertical lower abdominal scar that is well-healed. He has some tenderness in epigastrium but reports generalized tenderness throughout and denies worse in epigastric region. Bowel sounds are present : Pelaez in place with yellow urine output MUSCULOSKELETAL: Extremities without clubbing, cyanosis, or edema. He is status post right AKA with stump healed. Left foot has no lesions. There is a scab over his left dietz with no erythema or fluctuance or drainage. NEUROLOGICAL: He is awake, makes eye contact, oriented to hospital, self, year but is slow to answer questions about medical history. No obvious cranial nerve deficits. Motor grossly within normal limits. Strength is 5 out of 5 to plantar and dorsiflexion of left lower extremity. Normal speech without slurring Laboratory Laboratory Tests Test 11/23/16 11/23/16 11/23/16 15:50 16:00 18:20 White Blood Count 19.7 Red Blood Count 3.31 Hemoglobin 10.0 Hematocrit 32.5 Mean Corpuscular Volume 98.1 Mean Corpuscular Hemoglobin 30.1 Mean Corpuscular Hemoglobin 30.7 Concent Red Cell Distribution Width 16.1 Platelet Count 225 Mean Platelet Volume 9.6 Neutrophils (%) (Auto) 83.5 Lymphocytes (%) (Auto) 9.2 Monocytes (%) (Auto) 6.9 Eosinophils (%) (Auto) 0.1 Basophils (%) (Auto) 0.3 Neutrophils # (Auto) 16.4 Lymphocytes # (Auto) 1.8 Monocytes # (Auto) 1.4 Eosinophils # (Auto) 0.0 Basophils # (Auto) 0.1 CBC Comment DIFF FINAL Differential Comment Prothrombin Time 11.4 Prothromb Time International 1.0 Ratio Activated Partial 31.2 Thromboplast Time Sodium Level 124 Potassium Level 4.2 Chloride Level 84 Carbon Dioxide Level 11.5 Anion Gap 29 Blood Urea Nitrogen 54 Creatinine 2.51 Estimat Glomerular Filtration 26 Rate Random Glucose 780 Lactic Acid Level 9.8 Calcium Level 8.1 Total Bilirubin 0.3 Aspartate Amino Transf 39 (AST/SGOT) Alanine Aminotransferase 26 (ALT/SGPT) Alkaline Phosphatase 139 Total Protein 6.3 Albumin 3.3 Lipase 1778 B-Hydroxybutyrate 6.25 Blood Gas Puncture Site CL Blood Gas Patient Temperature 98.6 Venous Blood pH 7.22 Venous Blood Partial Pressure 24 CO2 Venous Blood Partial Pressure 26 O2 Venous Blood HCO3 9 Venous Blood Oxygen Saturation 36 Venous Blood Oxygen Content 4.9 Venous Blood Base Excess -17.0 Oxygen Delivery Device RA Urine Color LIGHT-YELLOW Urine Turbidity CLEAR Urine pH 5.0 Urine Specific [place] 1.016 Urine Protein NEG Urine Glucose (UA) 1000 Urine Ketones 10 Urine Occult Blood NEG Urine Nitrite NEG Urine Bilirubin NEG Urine Urobilinogen LESS THAN 2.0 Urine Leukocyte Esterase NEG Urine WBC 1 Urine Squamous Epithelial <1 Cells Urine Bacteria RARE Urine Mucus FEW Microscopic Urinalysis Comment CULT NOT INDICATED Date/Time Procedure Status Source Growth 11/23/16 16:00 Aerobic Blood Culture Received Blood Peripheral Pending 11/23/16 16:00 Anaerobic Blood Culture Received Blood Peripheral Pending Result Diagram: 11/23/16 1550 11/23/16 9250 Assessment and Plan Assessment and Plan NEURO: Peripheral neuropathy Decrease Lyrica to 25 3 times a day currently due to renal function. Home dose is 75 mill grams by mouth 3 times a day Nortriptyline 50 mg by mouth daily at bedtime Lortab as needed for pain. RESP: Tobacco abuse On room air Chest x-ray clear on admission. CV: Hypertension Hyperlipidemia Coronary artery disease status post CABG Peripheral arterial disease status post right AKA Lactic acidemia Follow serial lactic acid. Serial EKG and cardiac marker. Denies CP Continue Plavix 75 mg by mouth daily Hold lisinopril 10 by mouth twice a day due to acute kidney injury, hold HCTZ 12.5 mg by mouth daily Hold carvedilol 6.25 g milligrams by mouth twice a day and Norvasc 5 mg by mouth daily for now due to severe dehydration and blood pressure on the lower side. Hold atorvastatin 40 mg mouth daily for now and resume when better able to take by mouth. GI: GERD Elevated lipase of unclear significance? Pancreatitis Patient denies prior history of pancreatitis, denies localization of all abdominal pain to epigastric region, has had vomiting. CT abdomen and pelvis obtained noncontrast demonstrates no acute intra-abdominal abnormality. Will follow-up lipase in a.m. Nothing by mouth Is on outpatient PPI. Protonix 40 mg IV daily for now FEN/RENAL: Acute kidney injury Acute dehydration 0.9 NaCl at 250 mL per hour per DKA protocol. Insert Pelaez. Monitor intake and output. Monitor electrolytes and replace as indicated. BMP, phos, magnesium every 6 hours Hold NSAIDs ID: UA and chest x-ray are unremarkable for evidence of infection. No evidence of skin or soft tissue infection. Received cefepime and vancomycin in the emergency department. Will continue Zosyn 2.25 mill grams IV every 6 hours for now empirically to cover for potential for sepsis though this may largely represent dehydration with RENE and possible pancreatitis SIRS. We'll follow up blood cultures HEME: Chronic anemia B 12 deficiency Continue B-12 1000 g by mouth daily when able to take by mouth well ENDO: DKA Hypothyroidism Fluid resuscitation and insulin drip per DKA protocol. Continue Synthroid 100 g daily PROPH: SCDs for DVT prophylaxis. Will hold on pharmacologic DVT prophylaxis as patient has reportedly had issues with hemorrhage while on heparin in the past. I do not know whether this was from prophylactic or therapeutic dose and he is anemic. Can readdress this with the patient when he is more alert and hopefully able to provide better details. Protonix 40 g IV daily for stress ulcer prophylaxis. ACCESS: Right EJ and peripheral IV in place Discussed with ED rn home care time 60 minutes exclusive separately billable procedures Arlin Tierney MD November 23, 2016 19:14
[2016-11-23] MEDS ORDERED: SODIUM CHLORIDE 0.9% FLUSH 10 ML FLUSH PRN (19:15)
[2016-11-23] MEDS ORDERED: RESP: ALBUTEROL 2.5 MG/3 ML NEB (PRN) INH (19:15)
[2016-11-23] MEDS ORDERED: CHLORHEXIDINE GLUCONATE 2 % 1 PACK (2 CLOTHS) TOP PRN (19:15)
[2016-11-23] MEDS ORDERED: MISCELLANEOUS NURSING INFORMATION XX SCH (19:15)
[2016-11-23] MEDS: PANTOPRAZOLE SODIUM 40 MG VIAL IV SCH (20:20)
--- NOTE | 2016-11-23 21:06 | RADRPT ---
EXAM DATE/TIME: 11/23/2016 20:47 [facility] COMPARISON: No previous studies available for comparison. INDICATIONS : Weakness, vomiting, abdomen discomfort ORAL CONTRAST: No oral contrast ingested. RADIATION DOSE: 5.37 CTDIvol (mGy) MEDICAL HISTORY : Hypertension. Gastroesophageal reflux disease. Diabetes SURGICAL HISTORY : Appendectomy. CABGColectomy ENCOUNTER: Initial ACUITY: 3 days PAIN SCALE: 8/10 LOCATION: Abdomen TECHNIQUE: Volumetric scanning of the abdomen and pelvis was performed. Using automated exposure control and ad justment of the mA and/or kV according to patient size, radiation dose was kept as low as reasonably achievable to obtain optimal diagnostic quality images. FINDINGS: LOWER LUNGS: The visualized lower lungs are clear. LIVER: Homogeneous density without lesion. There is no dilation of the biliary tree. No calcified gallston es. SPLEEN: Normal size without lesion. PANCREAS: Within normal limits. KIDNEYS: Normal in size and shape. There is no mass, stone, or hydronephrosis. ADRENAL GLANDS: Within normal limits. VASCULAR: There is no aortic aneurysm. BOWEL/MESENTERY: The stomach is mildly dilated. The bowel is otherwise normal in caliber. No definite focal wall thick ening or inflammatory change. Occasional distal colonic diverticula. ABDOMINAL WALL: Within normal limits. RETROPERITONEUM: There is no lymphadenopathy. BLADDER: Pelaez catheter present. Apparent mild concentric wall thickening. REPRODUCTIVE: Within normal limits. INGUINAL: There is no lymphadenopathy or hernia. MUSCULOSKELETAL: Lumbar spine fusion hardware. Degenerative changes. CONCLUSION: No definite acute CT findings in the abdomen or pelvis. Ramon Mahmood MD on November 23, 2016 at 21:00 Board Certified Radiologist. This report was verified electronically.
[2016-11-23 22:48] LABS: LACTIC ACID GHOST NOT REPORTABLE
[2016-11-23 23:10] LABS: BICARBONATE 18.5 MEQ/L (21.0-32.0); MAGNESIUM 1.8 MG/DL (1.5-2.5); POTASSIUM 4.8 MEQ/L (3.5-5.1)
[2016-11-23 23:25] LABS: CALCIUM-PROTEIN CORRECTED 8.2 MG/DL (8.5-10.1)
[2016-11-23] MEDS: PIPERACIL-TAZO 2.25 GM PREMIX 50 ML IV SCH (23:41)
[2016-11-23 23:42] LABS: CKMB 32.7 NG/ML (0.5-3.6)
[2016-11-23] MEDS: SODIUM CHLORIDE 0.9% FLUSH 10 ML FLUSH SCH (23:42)
[2016-11-24] VITALS (12 sets, daily range): BP systolic 93–128; BP diastolic 51–61; PULSE 87–96; RESP 16–20; TEMP 98.4–99.2; O2SAT 93–100
[2016-11-24 00:43] LABS: LACTIC ACID GHOST NOT REPORTABLE
[2016-11-24] MEDS: DEXT 5%-NACL 0.9% 1000 ML INJ 1,000 ML IV SCH ×2 (00:45→04:01)
[2016-11-24] MEDS: PREGABALIN 25 MG CAP PO SCH ×4 (00:52→20:53)
[2016-11-24] MEDS ORDERED: SODIUM PHOSPHATE INJ 30 MMOL in SODIUM CHLOR 0.9% 250 ML INJ 250 ML IV ONE (01:15)
[2016-11-24] MEDS ORDERED: ASPIRIN 81 MG CHEW TAB CHEW ONE (01:15)
[2016-11-24] MEDS ORDERED: SODIUM CHLOR 0.9% 1000 ML INJ 1,000 ML IV ONE (01:15)
[2016-11-24] MEDS ORDERED: POTASSIUM CHLOR 20 MEQ PREMIX 100 ML IV ONE (01:15)
--- NOTE | 2016-11-24 01:57 | RADRPT ---
EXAM DATE/TIME: 11/24/2016 01:43 [facility] COMPARISON: CT BRAIN W/O CONTRAST, May 03, 2016, 5:16. INDICATIONS : Altered mental status. RADIATION DOSE: 49.50 CTDIvol (mGy) MEDICAL HISTORY : Hypertension. Gastroesophageal reflux disease. Diabetes SURGICAL HISTORY : CABG ENCOUNTER: Initial ACUITY: 1 day PAIN SCALE: 0/10 LOCATION: cranial TECHNIQUE: Multiple contiguous axial images were obtained of the head. Using automated exposure control and adj ustment of the mA and/or kV according to patient size, radiation dose was kept as low as reasonably a chievable to obtain optimal diagnostic quality images. FINDINGS: CEREBRUM: The ventricles are normal for age. No evidence of midline shift, mass lesion, hemorrhage or acute in farction. No extra-axial fluid collections are seen. POSTERIOR FOSSA: The cerebellum and brainstem are intact. The 4th ventricle is midline. The cerebellopontine angle i s unremarkable. Stable cisterna magna. EXTRACRANIAL: The visualized portion of the orbits is intact. SKULL: The calvaria is intact. No evidence of skull fracture. No significant change. CONCLUSION: Normal examination for a patient of this age. No significant change has occurred. Aubrey Izquierdo MD on November 24, 2016 at 1:54 Board Certified Radiologist. This report was verified electronically.
[2016-11-24] MEDS: CHLORHEXIDINE GLUCONATE 2 % 1 PACK (2 CLOTHS) TOP SCH (04:00)
[2016-11-24] MEDS: PIPERACIL-TAZO 2.25 GM PREMIX 50 ML IV SCH ×2 (04:04→10:15)
[2016-11-24] MEDS: LEVOTHYROXINE SODIUM 100 MCG TAB PO SCH (04:57)
--- NOTE | 2016-11-24 06:35 | EKG ---
Date Performed: 11/23/2016 Time Performed: 22:37:47 PTAGE: 61 years EKG: Sinus rhythm Cannot rule out septal myocardial infarction COMPARED TO PRIOR ELECTROCARDIOGRAM, Anterolateral ST e levation is less marked. PREVIOUS TRACING : 11/23/2016 15.38 DOCTOR: Kendrick Montalvo Interpretating Date/Time 11/24/2016 06:35:08
--- NOTE | 2016-11-24 07:36 | EKG ---
Date Performed: 11/24/2016 Time Performed: 02:06:26 PTAGE: 61 years EKG: Sinus rhythm . Normal ECG NO SIGNIFICANT CHANGE FROM PRIOR ELECTROCARDIOGRAM. PREVIOUS TRACING : 11/23/2016 22.37 DOCTOR: Kendrick Montalvo Interpretating Date/Time 11/24/2016 07:34:40
--- NOTE | 2016-11-24 07:53 | HHI.CCPN ---
Subjective Remarks/Hospital Course History from patient is somewhat limited due to lethargy. He is oriented but is very slow to answer questions and is not able to provide a lot of details about medical history. 61-year-old with past medical history of insulin-dependent diabetes mellitus, coronary artery disease with prior CABG, peripheral arterial disease status post right AKA. He states that he has a 3 day history of malaise, vomiting, abdominal discomfort. He states his glucose has been running high and he has been trying to administer insulin but has not been able to get his glucose down. He states he vomited three times, nonbloody nonbilious. Denies diarrhea. He presented to [facility] emergency department and was in DKA with VBG with a pH of 7.22/PaCO2 24. Bicarbonate is 11, creatinine 2.51 with BUN of 54. Glucose is 780. Lactic acid 9.8. Lipase is elevated at 1778. WBC 19. 5/12 Patient is on insulin drip 3units/hr, troponin 6.84 last night with CKMB 10.5. EKG this monitoring unchanged. Patient denies any chest pain or SOB. Afebrile. Objective Vital Signs Date Time Temp Pulse Resp B/P Pulse Ox O2 Delivery O2 Flow Rate FiO2 11/24/16 06:00 90 11/24/16 04:00 99.1 17 93/51 100 11/23/16 21:00 Room Air Intake and Output 11/23/16 11/23/16 11/23/16 07:59 15:59 23:59 Intake Total 3831 ml Output Total 1275 ml Balance 2556 ml Result Diagram: 11/23/16 1550 11/23/16 2232 Other Results Laboratory Tests Test 11/23/16 11/23/16 11/23/16 11/23/16 15:50 16:00 18:20 20:10 White Blood Count 19.7 TH/MM3 Red Blood Count 3.31 MIL/MM3 Hemoglobin 10.0 GM/DL Hematocrit 32.5 % Mean Corpuscular Volume 98.1 FL Mean Corpuscular Hemoglobin 30.1 PG Mean Corpuscular Hemoglobin 30.7 % Concent Red Cell Distribution Width 16.1 % Platelet Count 225 TH/MM3 Mean Platelet Volume 9.6 FL Neutrophils (%) (Auto) 83.5 % Lymphocytes (%) (Auto) 9.2 % Monocytes (%) (Auto) 6.9 % Eosinophils (%) (Auto) 0.1 % Basophils (%) (Auto) 0.3 % Neutrophils # (Auto) 16.4 TH/MM3 Lymphocytes # (Auto) 1.8 TH/MM3 Monocytes # (Auto) 1.4 TH/MM3 Eosinophils # (Auto) 0.0 TH/MM3 Basophils # (Auto) 0.1 TH/MM3 CBC Comment DIFF FINAL Differential Comment Prothrombin Time 11.4 SEC Prothromb Time International 1.0 RATIO Ratio Activated Partial 31.2 SEC Thromboplast Time Sodium Level 124 MEQ/L Potassium Level 4.2 MEQ/L Chloride Level 84 MEQ/L Carbon Dioxide Level 11.5 MEQ/L Anion Gap 29 MEQ/L Blood Urea Nitrogen 54 MG/DL Creatinine 2.51 MG/DL Estimat Glomerular Filtration 26 ML/MIN Rate Random Glucose 780 MG/DL Lactic Acid Level 9.8 mmol/L 6.7 mmol/L Calcium Level 8.1 MG/DL Total Bilirubin 0.3 MG/DL Aspartate Amino Transf 39 U/L (AST/SGOT) Alanine Aminotransferase 26 U/L (ALT/SGPT) Alkaline Phosphatase 139 U/L Total Protein 6.3 GM/DL Albumin 3.3 GM/DL Lipase 1778 U/L B-Hydroxybutyrate 6.25 MMOL/L Blood Gas Puncture Site CL Blood Gas Patient Temperature 98.6 Venous Blood pH 7.22 Venous Blood Partial Pressure 24 mmHg CO2 Venous Blood Partial Pressure 26 mmHg O2 Venous Blood HCO3 9 mmol/L Venous Blood Oxygen Saturation 36 % Venous Blood Oxygen Content 4.9 Vol % Venous Blood Base Excess -17.0 mmol/L Oxygen Delivery Device RA Urine Color LIGHT-YELLOW Urine Turbidity CLEAR Urine pH 5.0 Urine Specific [place] 1.016 Urine Protein NEG mg/dL Urine Glucose (UA) 1000 mg/dL Urine Ketones 10 mg/dL Urine Occult Blood NEG Urine Nitrite NEG Urine Bilirubin NEG Urine Urobilinogen LESS THAN 2.0 MG/DL Urine Leukocyte Esterase NEG Urine WBC 1 /hpf Urine Squamous Epithelial <1 /hpf Cells Urine Bacteria RARE /hpf Urine Mucus FEW /lpf Microscopic Urinalysis Comment CULT NOT INDICATED Test 11/23/16 11/23/16 11/24/16 21:30 22:32 02:15 Nasal Screen MRSA (PCR) MRSA NOT DETECTED Sodium Level 130 MEQ/L Potassium Level 4.8 MEQ/L Chloride Level 98 MEQ/L Carbon Dioxide Level 18.5 MEQ/L Anion Gap 14 MEQ/L Blood Urea Nitrogen 47 MG/DL Creatinine 1.70 MG/DL Estimat Glomerular Filtration 41 ML/MIN Rate Random Glucose 340 MG/DL Calcium Level 7.4 MG/DL Protein Corrected Calcium 8.2 MG/DL Phosphorus Level 2.3 MG/DL Magnesium Level 1.8 MG/DL Total Creatine Kinase 310 U/L Creatine Kinase MB 32.7 NG/ML Creatine Kinase MB % 10.5 % Troponin I 6.84 NG/ML Total Protein 5.7 GM/DL Lactic Acid Level 6.4 mmol/L 1.9 mmol/L Imaging Last Impressions Head CT 11/24/16 0000 Signed Impressions: Service Date/Time: Thursday, November 24, 2016 01:43 - CONCLUSION: Normal examination for a patient of this age. No significant change has occurred. Aubrey Izquierdo MD Chest X-Ray 11/23/16 0000 Signed Impressions: Service Date/Time: November 17:07 - CONCLUSION: No acute cardiopulmonary process to explain current clinical symptoms. Tyler Lopez MD Abdomen/Pelvis CT 11/23/16 0000 Signed Impressions: Service Date/Time: November 20:47 - CONCLUSION: No definite acute CT findings in the abdomen or pelvis. Ramon Mahmood MD Objective Remarks GENERAL: Patient is 61 yo lying in bed in NAD SKIN: Warm and dry. HEAD: Normocephalic. EYES: No scleral icterus. No injection or drainage. NECK: Supple, trachea midline. No JVD or lymphadenopathy. CARDIOVASCULAR: Regular rate and rhythm without murmurs, gallops, or rubs. RESPIRATORY: Breath sounds equal bilaterally. No accessory muscle use. GASTROINTESTINAL: Abdomen soft, non-tender, nondistended. MUSCULOSKELETAL: No cyanosis, or edema. BACK: Nontender without obvious deformity. No CVA tenderness. Neuro: Awake and alert A/P Assessment and Plan NEURO: Peripheral neuropathy On Lyrica to 25 mg TID. Home dose is 75 mill grams by mouth 3 times a day Nortriptyline 50 mg by mouth daily at bedtime Lortab as needed for pain. RESP: Tobacco abuse Oxygen PRN keep sat >92% Chest x-ray clear on admission. CV: Hypertension Hyperlipidemia Coronary artery disease status post CABG Peripheral arterial disease status post right AKA Lactic acidemia- Resolved Elevated trop/NSTEMI Monitor HR and BP keep MAP>65mmHg Continue Plavix 75 mg by mouth daily lisinopril 10 mg daily on hold for RENE Coreg and Norvasc on hold for borderline low BP Monitor CK/trop, cards consulted, 2D echo ordered. Given ASA x1 early this morning. Lactic acid cleared. GI: GERD Elevated lipase of unclear significance? Pancreatitis CT abdomen and pelvis obtained noncontrast demonstrates no acute intra- abdominal abnormality. Monitor Lipase level. Nothing by mouth Continue Protonix 40 mg IV daily FEN/RENAL: Acute kidney injury- improving Acute dehydration Monitor renal function, I/O's, avoid nephrotoxins, electrolytes replacement per protocol. Cr: 1.70 this morning from 2.51 on arrival Continue with IVF-D5NS@200ml/hr ID: Leukocytosis. ? reactive UA and chest x-ray are unremarkable for evidence of infection. No evidence of skin or soft tissue infection. Received cefepime and vancomycin in the emergency department. Continue Zosyn for now. Monitor for signs of infections ( Fever, WBC). Follow up on cxs HEME: Chronic anemia B 12 deficiency Monitor CBC ENDO: DKA Hypothyroidism On insulin drip per DKA protocol. Transition to SSI with long acting insulin once AG is closed. Continue Synthroid 100 g daily PROPH: SCDs for DVT prophylaxis. Patient denies any prior issues with heparin in past. Denies any prior hx of bleeding. Place on Heain SQ for now if there is any rise in troponin will switch to heparin drip. Protonix 40 g IV daily for stress ulcer prophylaxis. ACCESS: Right EJ and peripheral IV in place Level.3 Frank Castaneda MD November 24, 2016 07:53
[2016-11-24 09:09] LABS: ANION GAP 12 MEQ/L (5-15); BETA-HYDROXYBUTYRATE 0.13 MMOL/L (0.00-0.39); BICARBONATE 18.5 MEQ/L (21.0-32.0); BLOOD UREA NITROGEN 32 MG/DL (7-18); CHLORIDE 108 MEQ/L (98-107); CREATINE KINASE 214 U/L (39-308); GLOMERULAR FILTRATION RATE 74 ML/MIN (>89); MAGNESIUM 1.7 MG/DL (1.5-2.5); POTASSIUM 3.7 MEQ/L (3.5-5.1); SODIUM (NA) 138 MEQ/L (136-145)
[2016-11-24] MEDS: SODIUM CHLOR 0.9% 1000 ML INJ 1,000 ML IV SCH ×6 (09:09→22:22)
[2016-11-24 09:14] LABS: AUTOMATED NEUTROPHIL # 15.4 TH/MM3 (1.8-7.7); BASOPHIL # 0.1 TH/MM3 (0-0.2); BASOPHIL % 0.6 % (0.0-2.0); EOSINOPHIL # 0.1 TH/MM3 (0-0.4); EOSINOPHIL % 0.4 % (0.0-4.0); HEMATOCRIT 26.5 % (39.0-51.0); HEMO FLAGS DIFF FINAL; LYMPH % 10.7 % (9.0-44.0); MEAN CELL VOLUME 90.6 FL (80.0-100.0); MEAN CORPUSCULAR HEMOGLOBIN 29.7 PG (27.0-34.0); MEAN CORPUSCULAR HGB CONC 32.8 % (32.0-36.0); MONO % 5.9 % (0.0-8.0); NEUT % 82.4 % (16.0-70.0); PLATELET COUNT 117 TH/MM3 (150-450); RED BLOOD COUNT 2.93 MIL/MM3 (4.50-5.90); RED CELL DISTRIBUTION WIDTH 15.8 % (11.6-17.2); WHITE BLOOD COUNT 18.7 TH/MM3 (4.0-11.0)
[2016-11-24 09:17] LABS: INDIRECT BILIRUBIN 0.1 MG/DL (0.0-0.8); TOTAL BILIRUBIN ADULT 0.2 MG/DL (0.2-1.0)
[2016-11-24] MEDS ORDERED: DEXTROSE 50% IN WATER 50 ML VIAL(D50) IV PUSH PRN (09:30)
[2016-11-24] MEDS ORDERED: GLUCAGON 1 MG/ML VIAL OTHER PRN (09:30)
[2016-11-24 09:33] LABS: CALCIUM-PROTEIN CORRECTED 7.8 MG/DL (8.5-10.1)
[2016-11-24] MEDS: INSULIN NovoLIN REGULAR SUPPLEMENTAL SCALE SQ SCH ×4 (10:00→22:00)
[2016-11-24] MEDS: PANTOPRAZOLE SODIUM 40 MG VIAL IV SCH (10:15)
[2016-11-24] MEDS: HEPARIN SODIUM - SQ 10,000 UNITS/ML VIAL SQ SCH ×2 (10:15→19:36)
[2016-11-24] MEDS: CLOPIDOGREL 75 MG TAB PO SCH (10:15)
[2016-11-24] MEDS: SODIUM CHLORIDE 0.9% FLUSH 10 ML FLUSH SCH ×2 (10:16→20:54)
[2016-11-24 10:20] LABS: LACTIC ACID GHOST NOT REPORTABLE
[2016-11-24] MEDS: INSULIN DETEMIR 100 UNITS/ML VIAL SQ SCH ×2 (11:00→19:41)
--- NOTE | 2016-11-24 11:08 | MB ---
cc: LALITHA LIN M.D. DATE OF CONSULTATION 11/24/2016 REASON FOR CONSULTATION Ezio is a very pleasant 61-year-old gentleman with a history of coronary artery disease status post CABG, peripheral vascular disease, diabetes mellitus who presented yesterday with diabetic ketoacidosis, admitted to the ICU. Currently he is resting in bed in no acute distress. Denies chest pain, fever, chills, cough, GI or bleeding, paroxysmal nocturnal dyspnea, orthopnea, syncope or dizziness. CHIEF COMPLAINT On arrival to the ER, weakness and also complaining of abdominal pain, vomiting. PAST MEDICAL HISTORY Per history of present illness, also has a history of: 1. Arthritis 2. Depression 3. Hyperlipidemia 4. Esophageal ulcer 5. GERD 6. Hypertension 7. Hypoglycemia 8. Appendectomy 9. Right leg amputation wears prosthetic device. SOCIAL HISTORY Denies tobacco or alcohol use. ALLERGIES MORPHINE, UNFRACTIONATED HEPARIN. MEDICATIONS His medications in the hospital: 1. Nortriptyline 50 at bedtime 2. Insulin 3. Heparin 5000 subcu q12h 4. Clopidogrel 75 5. Levothyroxine 100 daily 6. Chlorhexidine 7. Aspirin 324 given x1 8. Piperacillin/Tazobactam 9. Lyrica 10. Pantoprazole 40 IV daily 11. Potassium chloride supplementation PHYSICAL EXAMINATION Blood pressure 93/51, pulse 91, respiratory rate 18, temperature 99.2. GENERAL: He is alert and oriented times three in no acute distress. NECK: Supple. No JVD. No bruit. CARDIOVASCULAR: S1, S2. No murmurs, rubs or gallops. LUNGS: Clear to auscultation bilaterally. ABDOMEN: Soft, nontender, nondistended with positive bowel sounds. EXTREMITIES: No lower extremity edema. LABS White count 18.7, hemoglobin 8.7, hematocrit 26.5, platelet count 117. Sodium 138, potassium 3.7, chloride 108, BUN 32, creatinine 1.03, lactic acid initially 6.6, currently is 2.2. Troponin is 4.17. CK 214, lipase 3925, albumin 2.2. Initial troponin was 6.84 with an initial CK of 310, MB percent of 10.5, INR 1.0. Chest x-ray, no acute cardiopulmonary process to explain current clinical symptoms. Abdominal pelvis CT, no definite acute CT findings in the abdomen or pelvis. HEAD CT Normal examination for a patient of this age. No significant changes occurred. EKG normal sinus rhythm, anteroseptal Q-waves. Otherwise no significant ST changes. FINAL DIAGNOSIS 1. Non-STEM 2. Anemia 3. Thrombocytopenia 4. Diabetes 5. Coronary disease 6. Status post CABG 7. Lactic acidosis 8. Low oncotic pressure 9. Hypoalbuminemia 10. Elevated white count DISCUSSION At this point in time, the patient is asymptomatic. Recommend medical management, particularly given the patient's anemia, thrombocytopenia and history of adverse reaction to heparin of indeterminate results, although the patient claims it is excess bleeding. Recommend to continue Plavix. Currently he is to hypotensive and recovering from acute renal failure, therefore, beta-serafin and HUMBLE inhibitor are held respectively. His liver enzymes are elevated as well, therefore statin will be held. Continue month telemetry monitoring. MD SMILEY Best/SANNA /10:34 AM /10:47 AM
[2016-11-24 12:49] LABS: HEMOGLOBIN A1a 1.5 %; HEMOGLOBIN A1b 3.5 %; HEMOGLOBIN Ao 73.6 %; HEMOGLOBIN LA1C 5.8 %; HEMOGLOBIN P3 8.8 %
[2016-11-24 12:50] LABS: BICARBONATE 17.9 MEQ/L (21.0-32.0); MAGNESIUM 1.8 MG/DL (1.5-2.5); POTASSIUM 4.1 MEQ/L (3.5-5.1)
[2016-11-24 12:51] LABS: CREATINE KINASE 202 U/L (39-308)
[2016-11-24 13:05] LABS: CALCIUM-PROTEIN CORRECTED 7.7 MG/DL (8.5-10.1)
[2016-11-24 13:43] LABS: CKMB 13.9 NG/ML (0.5-3.6)
--- NOTE | 2016-11-24 14:19 | PD.CONS ---
HPI History of Present Illness This is a 61 year old male who is currently in the medical intensive care unit being treated for DKA, acute kidney injury, acute dehydration, elevated lipase of unclear significance, hypothyroidism, chronic anemia, B12 deficiency, hypertension, hyperlipidemia, coronary artery disease, lactic acidemia, GERD, and peripheral neuropathy. He is hard of hearing and lethargic, but oriented. He answers some questions, but it is very difficult to obtain any sort of history from him. He cannot tell me what brought him to the ER. According to the EMR, he was having nausea, vomiting, malaise, and abdominal discomfort for about 3 days. The patient denies any nausea at this time, although he states he was having some. He cannot tell me if he is having reflux or heartburn. He denies any abdominal pain, but does have mild diffuse tenderness on exam. He does not respond when I ask if he has had any constipation, diarrhea, melena, or hematochezia. On admission, he was noted to have an elevated lipase of 3925. Abdomen/Pelvis CT (11/23/16)----> No definite acute CT findings in the abdomen or pelvis. He denies any history of pancreatitis. He denies any ETOH use or new medications. Triglycerides have been stable from 9507-9588. His insulin gtt has been discontinued. GI has been consulted for further evaluation. LFTs are normal. His medications were reviewed and he is on three Class III medications for drug induced acute pancreatitis- atorvastatin, hydrochlorothiazide, Lisinopril. He was evaluated with EGD (06/19/16) and this revealed LA Class D esophagitis noted, retroflexed views revealed no abnormalities. Pathology revealed squamocolumnar mucosa with intestinal metaplasia, consistent with chappell's, and moderate chronic inflammation, negative for dysplasia or malignancy. EGD was recommended in 6 months. (Lisa Vizcaino) PFSH Past Medical History Chappell's Esophagus GERD Diabetes Hypertension Coronary artery disease status post CABG Hypothyroidism Peripheral neuropathy B-12 deficiency Hyperlipidemia Past Surgical History Right lower extremity bypass surgery CABG L5-S1 surgery Appendectomy Right AKA EGD (Lisa Vizcaino) Coded Allergies: Morphine (Verified Adverse Reaction, Severe, STS HE BECOMES VIOLENT., ) Uncoded Allergies: UNFRACTIONATED HEPARIN (Adverse Reaction, Severe, PT UNSURE OF REACTION, ) patient states he's not allergic, " I just bleed easily", explained to patient drug's purpose. Medications Allergies Coded Allergies Type Severity Reaction Last Updated Verified Morphine Adverse Reaction Severe STS HE BECOMES VIOLENT. 11/14/16 Yes Uncoded Allergies Type Severity Reaction Last Updated Verified UNFRACTIONATED HEPARIN Adverse Reaction Severe PT UNSURE OF REACTION 06/12/16 Active Scripts Medications Dose Route/Sig Days Date Category Dose Instructions Carvedilol 6.25 Mg Tab 6.25 Mg PO BID 11/16/16 Rx Novolog Inj (Insulin Aspart) 1,000 Unit/10 Ml Vial 10 Units SQ ACHS 11/14/16 Rx Max dose at bedtime:( )units; sugars less than 70,(0) units; sugars 150-199,(2) units; sugars 200-249,(4) units; sugars 250-299,(6) units; sugars 300-349,(8)units; sugars greater than 349,(10)units Levemir Inj (Insulin Detemir) 1,000 unit/ 10 ML Vial 10 Units SQ AC BREAKFAST 11/14/16 Rx Do not mix with any other Insulin. B12 (Cyanocobalamin) 1,000 Mcg Tab 1,000 Mcg PO DAILY 10/02/16 Reported Hydrochlorothiazide 12.5 Mg Cap 12.5 Mg PO DAILY 09/27/16 Rx Lisinopril 10 Mg Tab 10 Mg PO Q12HR 09/25/16 Rx Norvasc (Amlodipine Besylate) 5 Mg Tab 5 Mg PO DAILY 09/06/16 Rx Meloxicam 7.5 Mg Tab 7.5 Mg PO DAILY 09/04/16 Reported Lyrica (Pregabalin) 75 Mg Cap 75 Mg PO TID 09/04/16 Reported Plavix (Clopidogrel Bisulfate) 75 Mg Tab 75 Mg PO DAILY 08/01/16 Rx Synthroid (Levothyroxine Sodium) 100 Mcg Tab 100 Mcg PO DAILY@06 08/01/16 Rx Atorvastatin (Atorvastatin Calcium) 40 Mg Tab 40 Mg PO DAILY 08/01/16 Rx Thera M Plus (Multivitamins/Minerals Therapeutic) 1 Tab 1 Tab PO DAILY 07/03/16 Rx Dok (Docusate Sodium) 100 Mg Cap 100 Mg PO BID PRN 07/03/16 Rx [place] (Hydrocodone-Acetaminophen) 10-325 Mg Tab 1 Tab PO Q6HR 07/03/16 Rx Omeprazole 20 Mg Tab 20 Mg PO BID 07/03/16 Rx Nortriptyline (Nortriptyline HCl) 50 Mg Cap 50 Mg PO HS 07/03/16 Rx Family History Denies except significant family medical history Social History He has smoked a pack of cigarettes per day for over 30 years Denies alcohol or illicit drug use (Lisa Vizcaino) Review of Systems Constitutional: COMPLAINS OF: Fatigue Gastrointestinal: COMPLAINS OF: Nausea, DENIES: Abdominal pain ROS poor historian, only answers a few questions (Lisa Vizcaino) GI Exam Vitals I&O Vital Signs Date Time Temp Pulse Resp B/P Pulse Ox O2 Delivery O2 Flow Rate FiO2 11/24/16 12:00 98.6 96 20 122/57 96 11/24/16 12:00 90 11/24/16 10:00 92 11/24/16 08:00 99.0 87 16 122/57 100 11/24/16 08:00 90 11/24/16 06:00 90 11/24/16 04:00 91 11/24/16 04:00 99.1 91 17 93/51 100 11/24/16 02:00 91 11/24/16 00:00 99.2 92 18 98/56 93 11/24/16 00:00 92 11/23/16 22:00 90 11/23/16 21:30 98.4 91 16 110/61 89 11/23/16 21:00 93 19 109/51 100 Room Air 11/23/16 20:00 94 19 106/58 100 Room Air 11/23/16 19:00 94 22 127/63 100 Room Air 11/23/16 17:44 96 20 116/69 100 11/23/16 16:25 87 20 91/55 11/23/16 15:29 100 11/23/16 15:23 87 18 100 11/23/16 15:20 86 24 79/47 100 Room Air I/O 11/23/16 11/23/16 11/23/16 11/24/16 11/24/16 11/24/16 06:59 14:59 22:59 06:59 14:59 22:59 Intake Total 3831 ml 3879 ml Output Total 1275 ml 400 ml Balance 2556 ml 3479 ml Intake Oral 75 ml IV Total 3756 ml 3879 ml Output Urine Total 1275 ml 400 ml Imaging Last Impressions Head CT 11/24/16 0000 Signed Impressions: Service Date/Time: Thursday, November 24, 2016 01:43 - CONCLUSION: Normal examination for a patient of this age. No significant change has occurred. Aubrey Izquierdo MD Chest X-Ray 11/23/16 0000 Signed Impressions: Service Date/Time: November 17:07 - CONCLUSION: No acute cardiopulmonary process to explain current clinical symptoms. Tyler Lopez MD Abdomen/Pelvis CT 11/23/16 0000 Signed Impressions: Service Date/Time: November 20:47 - CONCLUSION: No definite acute CT findings in the abdomen or pelvis. Ramon Mahmood MD Laboratory Test 11/23/16 11/23/16 11/23/16 11/23/16 15:50 16:00 18:20 20:10 White Blood Count 19.7 TH/MM3 Red Blood Count 3.31 MIL/MM3 Hemoglobin 10.0 GM/DL Hematocrit 32.5 % Mean Corpuscular Volume 98.1 FL Mean Corpuscular Hemoglobin 30.1 PG Mean Corpuscular Hemoglobin 30.7 % Concent Red Cell Distribution Width 16.1 % Platelet Count 225 TH/MM3 Mean Platelet Volume 9.6 FL Neutrophils (%) (Auto) 83.5 % Lymphocytes (%) (Auto) 9.2 % Monocytes (%) (Auto) 6.9 % Eosinophils (%) (Auto) 0.1 % Basophils (%) (Auto) 0.3 % Neutrophils # (Auto) 16.4 TH/MM3 Lymphocytes # (Auto) 1.8 TH/MM3 Monocytes # (Auto) 1.4 TH/MM3 Eosinophils # (Auto) 0.0 TH/MM3 Basophils # (Auto) 0.1 TH/MM3 CBC Comment DIFF FINAL Differential Comment Prothrombin Time 11.4 SEC Prothromb Time International 1.0 RATIO Ratio Activated Partial 31.2 SEC Thromboplast Time Sodium Level 124 MEQ/L Potassium Level 4.2 MEQ/L Chloride Level 84 MEQ/L Carbon Dioxide Level 11.5 MEQ/L Anion Gap 29 MEQ/L Blood Urea Nitrogen 54 MG/DL Creatinine 2.51 MG/DL Estimat Glomerular Filtration 26 ML/MIN Rate Random Glucose 780 MG/DL Lactic Acid Level 9.8 mmol/L 6.7 mmol/L Calcium Level 8.1 MG/DL Total Bilirubin 0.3 MG/DL Aspartate Amino Transf 39 U/L (AST/SGOT) Alanine Aminotransferase 26 U/L (ALT/SGPT) Alkaline Phosphatase 139 U/L Total Protein 6.3 GM/DL Albumin 3.3 GM/DL Lipase 1778 U/L B-Hydroxybutyrate 6.25 MMOL/L Blood Gas Puncture Site CL Blood Gas Patient Temperature 98.6 Venous Blood pH 7.22 Venous Blood Partial Pressure 24 mmHg CO2 Venous Blood Partial Pressure 26 mmHg O2 Venous Blood HCO3 9 mmol/L Venous Blood Oxygen Saturation 36 % Venous Blood Oxygen Content 4.9 Vol % Venous Blood Base Excess -17.0 mmol/L Oxygen Delivery Device RA Urine Color LIGHT-YELLOW Urine Turbidity CLEAR Urine pH 5.0 Urine Specific [place] 1.016 Urine Protein NEG mg/dL Urine Glucose (UA) 1000 mg/dL Urine Ketones 10 mg/dL Urine Occult Blood NEG Urine Nitrite NEG Urine Bilirubin NEG Urine Urobilinogen LESS THAN 2.0 MG/DL Urine Leukocyte Esterase NEG Urine WBC 1 /hpf Urine Squamous Epithelial <1 /hpf Cells Urine Bacteria RARE /hpf Urine Mucus FEW /lpf Microscopic Urinalysis Comment CULT NOT INDICATED Test 11/23/16 11/23/16 11/24/16 11/24/16 21:30 22:32 02:15 05:01 Nasal Screen MRSA (PCR) MRSA NOT DETECTED Sodium Level 130 MEQ/L Potassium Level 4.8 MEQ/L Chloride Level 98 MEQ/L Carbon Dioxide Level 18.5 MEQ/L Anion Gap 14 MEQ/L Blood Urea Nitrogen 47 MG/DL Creatinine 1.70 MG/DL Estimat Glomerular Filtration 41 ML/MIN Rate Random Glucose 340 MG/DL Calcium Level 7.4 MG/DL Protein Corrected Calcium 8.2 MG/DL Phosphorus Level 2.3 MG/DL Magnesium Level 1.8 MG/DL Total Creatine Kinase 310 U/L Creatine Kinase MB 32.7 NG/ML Creatine Kinase MB % 10.5 % Troponin I 6.84 NG/ML Total Protein 5.7 GM/DL 4.6 GM/DL Lactic Acid Level 6.4 mmol/L 1.9 mmol/L Total Bilirubin 0.2 MG/DL Direct Bilirubin 0.1 MG/DL Indirect Bilirubin 0.1 MG/DL Aspartate Amino Transf 39 U/L (AST/SGOT) Alanine Aminotransferase 23 U/L (ALT/SGPT) Alkaline Phosphatase 95 U/L Albumin 2.2 GM/DL Test 11/24/16 11/24/16 11/24/16 08:15 08:59 12:10 Sodium Level 138 MEQ/L 136 MEQ/L Potassium Level 3.7 MEQ/L 4.1 MEQ/L Chloride Level 108 MEQ/L 108 MEQ/L Carbon Dioxide Level 18.5 MEQ/L 17.9 MEQ/L Anion Gap 12 MEQ/L 10 MEQ/L Blood Urea Nitrogen 32 MG/DL 29 MG/DL Creatinine 1.03 MG/DL 1.00 MG/DL Estimat Glomerular Filtration 74 ML/MIN 76 ML/MIN Rate Random Glucose 132 MG/DL 195 MG/DL Lactic Acid Level 2.2 mmol/L 2.0 mmol/L Calcium Level 6.6 MG/DL 6.6 MG/DL Protein Corrected Calcium 7.8 MG/DL 7.7 MG/DL Phosphorus Level 2.9 MG/DL 3.0 MG/DL Magnesium Level 1.7 MG/DL 1.8 MG/DL Total Creatine Kinase 214 U/L 202 U/L Creatine Kinase MB 16.0 NG/ML 13.9 NG/ML Troponin I 4.17 NG/ML 2.89 NG/ML Total Protein 4.7 GM/DL 4.9 GM/DL Lipase 3925 U/L B-Hydroxybutyrate 0.13 MMOL/L White Blood Count 18.7 TH/MM3 Red Blood Count 2.93 MIL/MM3 Hemoglobin 8.7 GM/DL Hematocrit 26.5 % Mean Corpuscular Volume 90.6 FL Mean Corpuscular Hemoglobin 29.7 PG Mean Corpuscular Hemoglobin 32.8 % Concent Red Cell Distribution Width 15.8 % Platelet Count 117 TH/MM3 Mean Platelet Volume 9.0 FL Neutrophils (%) (Auto) 82.4 % Lymphocytes (%) (Auto) 10.7 % Monocytes (%) (Auto) 5.9 % Eosinophils (%) (Auto) 0.4 % Basophils (%) (Auto) 0.6 % Neutrophils # (Auto) 15.4 TH/MM3 Lymphocytes # (Auto) 2.0 TH/MM3 Monocytes # (Auto) 1.1 TH/MM3 Eosinophils # (Auto) 0.1 TH/MM3 Basophils # (Auto) 0.1 TH/MM3 CBC Comment DIFF FINAL Differential Comment Hematology Comments Date/Time Procedure Status Source Growth 11/23/16 16:00 Aerobic Blood Culture - Preliminary Resulted Blood Peripheral NO GROWTH IN 1 DAY 11/23/16 16:00 Anaerobic Blood Culture - Preliminary Resulted Blood Peripheral NO GROWTH IN 1 DAY Physical Examination HEENT: Normocephalic; atraumatic; no jaundice. CHEST: CTA CARDIAC: RRR ABDOMEN: Soft, nondistended, mild diffuse tenderness; no hepatosplenomegaly; bowel sounds are present in all four quadrants. EXTREMITIES: Right AKA SKIN: Normal; no rash; no jaundice. 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 [place]. Poor historian (Lisa Vizcaino) Assessment and Plan Plan ASSESSMENT: - Nausea, Vomiting, Abdominal pain with elevated lipase. He was admitted for DKA and found to have an elevated lipase of 3925. Abdomen/Pelvis CT (11/23/16)----> No definite acute CT findings in the abdomen or pelvis. He denies any history of pancreatitis. He denies any ETOH use or new medications. Triglycerides have been stable from 0546-3922. His insulin gtt has been discontinued. LFTs are normal. His medications were reviewed and he is on three Class III medications for drug induced acute pancreatitis- atorvastatin, hydrochlorothiazide, Lisinopril. Unclear if this is a true pancreatitis, or perhaps elevated lipase from persistent nausea and vomiting related to DKA. He is on a regular diet now. - Anemia with hx of B12 Deficiency. Drop in H/H 10.0/32.5 to 8.7/26.5. He is on a diet and has already ate today. PPI Of note, he is also on plavix/heparin and has elevated troponin. He did have an EGD (06/19/16) and this revealed LA Class D esophagitis noted, retroflexed views revealed no abnormalities. Pathology revealed squamocolumnar mucosa with intestinal metaplasia, consistent with chappell's, and moderate chronic inflammation, negative for dysplasia or malignancy. EGD was recommended in 6 months. - GERD/Chappell's. PPI. - DKA. Transitioned to sliding scale insulin. Per CCM - RENE, Dehydration. Per CCM. - Elevated troponin I, per cardiolgy. Plavix, Heparin. - Leukocytosis, Lactic acidemia. WBC 18.7. BCx no growth 1 day, FLU (-) A/B. Zosyn - Hypothyroidism, chronic anemia,hypertension, hyperlipidemia, coronary artery disease, and peripheral neuropathy. Per primary. PLAN: - ALEXANDER - Cont. Protonix - Monitor HH - CBC, BMP, Lipase in am - On Plavix/Heparin - Consider EGD once stable - Supportive care - Further recommendations to follow based on results of above - Pt seen and examined by Dr. Mtz and myself and this note is written on her behalf (Lisa Vizcaino) Physician Comments seen, examined agree with above (Shu Mtz MD) Lisa Vizcaino November 24, 2016 14:19 Shu Mtz MD November 25, 2016 08:04
--- NOTE | 2016-11-24 15:26 | EC ---
Study Study Date:11/24/2016 STUDY CONCLUSIONS SUMMARY - Left ventricle: The cavity size was normal. Wall thickness was normal. Systolic function was vigorous. The estimated ejection fraction was in the range of 65% to 70%. Wall motion was normal; there were no regional wall motion abnormalities. - Aortic valve: Valve area: 2.68cm^2(VTI). Valve area: 2.54cm^2 (Vmax). If LV function is below 40, please consider prescribing an ACEI or ARB or document rationale for non-use. PROCEDURE DATA STUDY STATUS: Elective. Procedure: Transthoracic echocardiography. Image quality was good. Scanning was performed from the parasternal, apical, and subcostal acoustic windows. Study completion: The patient tolerated the procedure well. Transthoracic echocardiography. M-mode, complete 2D, complete spectral Doppler, and color Doppler. Height: Height: 72in. Weight: Weight: 136.7lb. Body mass index: BMI: 18.6kg/m^2. Body surface area: BSA: 1.81m^2. Patient status: Inpatient. CARDIAC ANATOMY LEFT VENTRICLE: The cavity size was normal. Wall thickness was normal. Systolic function was vigorous. The estimated ejection fraction was in the range of 65% to 70%. Wall motion was normal; there were no regional wall motion abnormalities. AORTIC VALVE: Trileaflet; normal thickness leaflets. Doppler: Transvalvular velocity was within the normal range. There was no stenosis. No regurgitation. Valve area: 2.68cm^2(VTI). Indexed valve area: 1.48cm^2/m^2 (VTI). Valve area: 2.54cm^2 (Vmax). Indexed valve area: 1.4cm^2/m^2 (Vmax). Mean gradient: 2mm Hg (S). AORTA: Aortic root: The aortic root was normal in size. MITRAL VALVE: Structurally normal valve. Doppler: Transvalvular velocity was within the normal range. There was no evidence for stenosis. Trace regurgitation. LEFT ATRIUM: The atrium was normal in size. RIGHT VENTRICLE: The cavity size was normal. Wall thickness was normal. PULMONIC VALVE: Doppler: Transvalvular velocity was within the normal range. There was no evidence for stenosis. No regurgitation. TRICUSPID VALVE: Structurally normal valve. Doppler: Transvalvular velocity was within the normal range. Trace regurgitation. PULMONARY ARTERY: The main pulmonary artery was normal-sized. Systolic pressure was within the normal range. RIGHT ATRIUM: The atrium was normal in size. PERICARDIUM: There was no pericardial effusion. SYSTEMIC VEINS: Inferior vena cava: The vessel was normal in size. Patient weight: 136.7lb _Ejection fraction:_ 65-75% _Fractional shortening:_ 32% up to 5Kg 5-11.5Kg 11.6-22.9Kg 23-45Kg 45-57Kg Aortic Root 7-13 <17 13-22 17-27 17-27 LA diam 6-13 <23 24-38 33-47 37-40 RVID 10-17 7-15 7-15 7-18 8-17 LVIDd 12-22 <32 24-38 33-47 37-40 LVPW 2-4 3-6 5-7 6-8 7-8 IVS 2-4 3-6 5-7 6-8 7-8 BASIC MEASUREMENTS ADULT NORMAL Left ventricle LV internal dimension, ED, chordal 49.1 mm 43-52 level, PLAX LV internal dimension, ES, chordal 32.1 mm 23-38 level, PLAX Fractional shortening, chordal level, 35 % >29 PLAX LV posterior wall thickness, ED 8.44 mm IVS/LVPW ratio, ED 0.97 <1.3 Ventricular septum Septal thickness, ED 8.21 mm Aortic valve Leaflet separation 22 mm 15-26 Aorta Root diameter, ED 32 mm Left atrium Anterior-posterior dimension 34 mm Anterior-posterior dimension index 1.88 cm/m^2 <2.2 BASIC MEASUREMENTS ADULT NORMAL Aortic valve Leaflet separation 22 mm 15-26 DOPPLER MEASUREMENTS ADULT NORMAL Main pulmonary artery Pressure, S 24 mm Hg =30 Aortic valve Peak velocity, S 95.1 cm/s Mean velocity, S 62.7 cm/s VTI, S 14.7 cm Mean gradient, S 2 mm Hg Valve area, VTI 2.68 cm^2 Valve area index, VTI 1.48 cm^2/m^2 Valve area, Vmax 2.54 cm^2 Valve area index, Vmax 1.4 cm^2/m^2 Mitral valve Peak E-wave velocity 52.8 cm/s Peak A-wave velocity 87.4 cm/s Deceleration time *99 ms 150-230 Peak E/A ratio 0.6 Tricuspid valve Regurgitant peak velocity 209 cm/s Peak RV-RA gradient, S 17 mm Hg Maximal regurgitant velocity 209 cm/s Systemic veins Estimated CVP 10 mm Hg Right ventricle RV pressure, S 27 mm Hg <30 Pulmonic valve Peak velocity, S 80.5 cm/s LEGEND: Mean values are shown as u=mean value. Asterisk (*) brunson values outside specified normal range. Prepared and signed by Dandy Anderson [id number]
[2016-11-24 17:20] LABS: HEMATOCRIT 27.1 % (39.0-51.0); REVIEW FLAG FINAL
[2016-11-24 18:13] LABS: BETA-HYDROXYBUTYRATE 0.17 MMOL/L (0.00-0.39); BICARBONATE 19.6 MEQ/L (21.0-32.0); MAGNESIUM 1.7 MG/DL (1.5-2.5); POTASSIUM 3.7 MEQ/L (3.5-5.1)
[2016-11-24 18:41] LABS: CALCIUM-PROTEIN CORRECTED 7.8 MG/DL (8.5-10.1)
[2016-11-24] MEDS: PIPERACIL-TAZO 3.375 GM PREMIX 50 ML IV SCH ×2 (19:51→20:53)
[2016-11-24] MEDS: ACETAMINOPHEN 325 MG TAB PO PRN (20:54)
[2016-11-24] MEDS ORDERED: ACETAMINOPHEN/HYDROcodone 325 MG/10 MG TAB PO SCH (22:15)
[2016-11-25] VITALS (20 sets, daily range): BP systolic 105–136; BP diastolic 57–80; PULSE 78–87; RESP 12–22; TEMP 98–99.2; O2SAT 98–100
[2016-11-25] MEDS: INSULIN NovoLIN REGULAR SUPPLEMENTAL SCALE SQ SCH ×6 (02:00→20:55)
[2016-11-25] MEDS: CHLORHEXIDINE GLUCONATE 2 % 1 PACK (2 CLOTHS) TOP SCH (03:20)
[2016-11-25] MEDS: PIPERACIL-TAZO 3.375 GM PREMIX 50 ML IV SCH ×4 (03:20→20:48)
[2016-11-25] MEDS: LEVOTHYROXINE SODIUM 100 MCG TAB PO SCH (05:39)
[2016-11-25] MEDS: PREGABALIN 25 MG CAP PO SCH ×3 (05:39→20:49)
[2016-11-25 06:54] LABS: AUTOMATED NEUTROPHIL # 6.7 TH/MM3 (1.8-7.7); BASOPHIL % 0.3 % (0.0-2.0); EOSINOPHIL # 0.1 TH/MM3 (0-0.4); EOSINOPHIL % 1.2 % (0.0-4.0); HEMO FLAGS DIFF FINAL; LYMPH % 24.7 % (9.0-44.0); LYMPHOCYTE # 2.4 TH/MM3 (1.0-4.8); MEAN CELL VOLUME 91.1 FL (80.0-100.0); MEAN CORPUSCULAR HEMOGLOBIN 30.5 PG (27.0-34.0); MEAN CORPUSCULAR HGB CONC 33.5 % (32.0-36.0); MONO % 5.5 % (0.0-8.0); NEUT % 68.3 % (16.0-70.0); PLATELET COUNT 133 TH/MM3 (150-450); RED BLOOD COUNT 2.64 MIL/MM3 (4.50-5.90); RED CELL DISTRIBUTION WIDTH 15.6 % (11.6-17.2); WHITE BLOOD COUNT 9.8 TH/MM3 (4.0-11.0)
[2016-11-25 07:27] LABS: BICARBONATE 22.4 MEQ/L (21.0-32.0); CALCIUM-PROTEIN CORRECTED 7.9 MG/DL (8.5-10.1); MAGNESIUM 1.8 MG/DL (1.5-2.5); POTASSIUM 3.1 MEQ/L (3.5-5.1); TOTAL BILIRUBIN ADULT 0.3 MG/DL (0.2-1.0)
[2016-11-25] MEDS: HEPARIN SODIUM - SQ 10,000 UNITS/ML VIAL SQ SCH ×2 (08:52→20:48)
[2016-11-25] MEDS: PANTOPRAZOLE SODIUM 40 MG VIAL IV SCH (08:52)
[2016-11-25] MEDS: CLOPIDOGREL 75 MG TAB PO SCH (08:53)
[2016-11-25] MEDS: SODIUM CHLORIDE 0.9% FLUSH 10 ML FLUSH SCH ×2 (08:53→20:49)
[2016-11-25] MEDS: INSULIN DETEMIR 100 UNITS/ML VIAL SQ SCH ×2 (08:54→20:50)
[2016-11-25] MEDS: SODIUM CHLOR 0.9% 1000 ML INJ 1,000 ML IV SCH ×5 (09:09→20:49)
[2016-11-25] MEDS: ACETAMINOPHEN 325 MG TAB PO PRN (09:41)
[2016-11-25] MEDS ORDERED: POTASSIUM CHLORIDE 25 MEQ EFFERVESCENT TAB PO ONE (13:30)
--- NOTE | 2016-11-25 14:34 | HHI.GIFU ---
Subjective Remarks Resting in bed. Much more alert today. C/O of pain, when asked where, he says his shoulders and back and is requesting hydrocodone, states he has had issues since 1991 and he is not receiving his pain meds here. When asked specifically about his stomach, he says, "yeah that too." No nausea/vomiting since he arrived. Had bm. Has not noticed any red blood in his stools or dark stools. No appetite. (Lisa Vizcaino) Objective Vitals I&O Vital Signs Date Time Temp Pulse Resp B/P Pulse Ox O2 Delivery O2 Flow Rate FiO2 11/25/16 10:41 16 11/25/16 10:00 84 17 123/65 100 11/25/16 10:00 81 11/25/16 09:45 79 15 100 11/25/16 09:30 81 14 100 11/25/16 09:15 78 15 100 11/25/16 09:00 79 15 126/69 100 11/25/16 08:45 87 19 100 11/25/16 08:30 80 20 98 11/25/16 08:15 79 22 98 11/25/16 08:00 98.6 79 12 127/68 100 11/25/16 08:00 81 11/25/16 06:00 78 11/25/16 04:00 81 11/25/16 04:00 98.5 81 19 119/66 100 11/25/16 02:00 83 11/25/16 00:00 99.2 79 12 105/57 100 11/25/16 00:00 79 11/24/16 22:00 88 11/24/16 20:00 98.4 96 17 120/61 100 11/24/16 20:00 96 11/24/16 18:00 90 11/24/16 16:00 98.6 95 20 128/56 95 11/24/16 16:00 90 I/O 11/24/16 11/24/16 11/24/16 11/25/16 11/25/16 11/25/16 07:00 15:00 23:00 07:00 15:00 23:00 Intake Total 3879 ml 1288 ml 706 ml 543 ml Output Total 400 ml 1000 ml 525 ml 375 ml Balance 3479 ml 288 ml 181 ml 168 ml Intake Oral 240 ml 100 ml IV Total 3879 ml 1048 ml 606 ml 543 ml Output Urine Total 400 ml 1000 ml 525 ml 375 ml Laboratory Laboratory Tests Test 11/24/16 11/25/16 11/25/16 16:27 00:20 05:45 Hemoglobin 8.8 8.1 Hematocrit 27.1 24.0 Sodium Level 138 139 Potassium Level 3.7 3.1 Chloride Level 108 109 Carbon Dioxide Level 19.6 22.4 Anion Gap 10 8 Blood Urea Nitrogen 23 14 Creatinine 0.99 0.66 Estimat Glomerular Filtration 77 124 Rate Random Glucose 178 87 Calcium Level 6.5 6.6 Protein Corrected Calcium 7.8 7.9 Phosphorus Level 2.0 1.7 Magnesium Level 1.7 1.8 Troponin I 2.27 2.01 Total Protein 4.5 4.5 Lipase 3890 3554 B-Hydroxybutyrate 0.17 White Blood Count 9.8 Red Blood Count 2.64 Mean Corpuscular Volume 91.1 Mean Corpuscular Hemoglobin 30.5 Mean Corpuscular Hemoglobin 33.5 Concent Red Cell Distribution Width 15.6 Platelet Count 133 Mean Platelet Volume 9.1 Neutrophils (%) (Auto) 68.3 Lymphocytes (%) (Auto) 24.7 Monocytes (%) (Auto) 5.5 Eosinophils (%) (Auto) 1.2 Basophils (%) (Auto) 0.3 Neutrophils # (Auto) 6.7 Lymphocytes # (Auto) 2.4 Monocytes # (Auto) 0.5 Eosinophils # (Auto) 0.1 Basophils # (Auto) 0.0 CBC Comment DIFF FINAL Differential Comment Total Bilirubin 0.3 Aspartate Amino Transf 32 (AST/SGOT) Alanine Aminotransferase 23 (ALT/SGPT) Alkaline Phosphatase 92 Albumin 2.2 Date/Time Procedure Status Source Growth 11/23/16 16:00 Aerobic Blood Culture - Preliminary Resulted Blood Peripheral NO GROWTH IN 2 DAYS 11/23/16 16:00 Anaerobic Blood Culture - Preliminary Resulted Blood Peripheral NO GROWTH IN 2 DAYS Imaging Last Impressions Head CT 11/24/16 0000 Signed Impressions: Service Date/Time: Thursday, November 24, 2016 01:43 - CONCLUSION: Normal examination for a patient of this age. No significant change has occurred. Aubrey Izquierdo MD Chest X-Ray 11/23/16 0000 Signed Impressions: Service Date/Time: November 17:07 - CONCLUSION: No acute cardiopulmonary process to explain current clinical symptoms. Tyler Lopez MD Abdomen/Pelvis CT 11/23/16 0000 Signed Impressions: Service Date/Time: November 20:47 - CONCLUSION: No definite acute CT findings in the abdomen or pelvis. Ramon Mahmood MD Physical Exam HEENT: Normocephalic; atraumatic; no jaundice. CHEST: CTA CARDIAC: RRR ABDOMEN: Soft, nondistended, nontender; no hepatosplenomegaly; bowel sounds are present in all four quadrants. EXTREMITIES: No clubbing, cyanosis, or edema. SKIN: Normal; no rash; no jaundice. COSMETIC SURGEON: No focal deficits; alert and oriented times three. (Lisa Vizcaino) Assessment and Plan Plan ASSESSMENT: - Nausea, Vomiting, Abdominal pain with elevated lipase. He was admitted for DKA and found to have an elevated lipase of 3925. Abdomen/Pelvis CT (11/23/16)----> No definite acute CT findings in the abdomen or pelvis. He denies any history of pancreatitis. He denies any ETOH use or new medications. Triglycerides have been stable from 2175-8781. His insulin gtt has been discontinued. LFTs are normal. His medications were reviewed and he is on three Class III medications for drug induced acute pancreatitis- atorvastatin, hydrochlorothiazide, Lisinopril. Unclear if this is a true pancreatitis, or perhaps elevated lipase from persistent nausea and vomiting related to DKA. C/O of pain in his shoulders and back. When asked specifically about his stomach, he says, "yeah that too." No nausea/vomiting since he arrived. Had bm. - Anemia with hx of B12 Deficiency. HH trending down. Drop in H/H 10.0/32.5 ( on admission)---> 8.1/24.0. PPI Of note, he is also on plavix/heparin and has elevated troponin. He did have an EGD (06/19/16) and this revealed LA Class D esophagitis noted, retroflexed views revealed no abnormalities. Pathology revealed squamocolumnar mucosa with intestinal metaplasia, consistent with chappell's, and moderate chronic inflammation, negative for dysplasia or malignancy. EGD was recommended in 6 months. Has not noticed any red blood in his stools or dark stools. No appetite. - GERD/Chappell's. PPI. - DKA. Transitioned to sliding scale insulin. Per CCM - RENE, Dehydration. Per CCM. - Non-STEMI/Elevated troponin I, Cardiology following, medical management. Plavix, Heparin. Per cardiology - Leukocytosis, Lactic acidemia. WBC 9.8. BCx no growth 2 day, FLU (-) A/B. Zosyn - Hypothyroidism, chronic anemia,hypertension, hyperlipidemia, coronary artery disease, and peripheral neuropathy. Per primary. PLAN: - ALEXANDER - Cont. Protonix - Monitor HH - CBC, BMP, Lipase in am - On Plavix/Heparin - Supportive care - Consider EGD once cleared by cardiology - Further recommendations to follow based on results of above - Pt seen and examined by Dr. Mtz and myself and this note is written on her behalf (Lisa Vizcaino) Physician Comments seen, examined agree with above abdominal us lipid profile if negative us , we will order hida scan, mrcp (Shu Mtz MD) Lisa Vizcaino November 25, 2016 14:34 Shu Mtz MD November 25, 2016 20:19
--- NOTE | 2016-11-25 15:36 | PD.CARD.PN ---
Subjective Subjective Remarks denies chest pain or dyspnea Objective Vital Signs / I&O Vital Signs Date Time Temp Pulse Resp B/P Pulse Ox O2 Delivery O2 Flow Rate FiO2 11/25/16 14:00 81 11/25/16 12:00 81 11/25/16 10:41 16 11/25/16 10:00 84 17 123/65 100 11/25/16 10:00 81 11/25/16 09:45 79 15 100 11/25/16 09:30 81 14 100 11/25/16 09:15 78 15 100 11/25/16 09:00 79 15 126/69 100 11/25/16 08:45 87 19 100 11/25/16 08:30 80 20 98 11/25/16 08:15 79 22 98 11/25/16 08:00 98.6 79 12 127/68 100 11/25/16 08:00 81 11/25/16 06:00 78 11/25/16 04:00 81 11/25/16 04:00 98.5 81 19 119/66 100 11/25/16 02:00 83 11/25/16 00:00 99.2 79 12 105/57 100 11/25/16 00:00 79 11/24/16 22:00 88 11/24/16 20:00 98.4 96 17 120/61 100 11/24/16 20:00 96 11/24/16 18:00 90 11/24/16 16:00 98.6 95 20 128/56 95 11/24/16 16:00 90 I/O 11/24/16 11/24/16 11/24/16 11/25/16 11/25/16 11/25/16 07:00 15:00 23:00 07:00 15:00 23:00 Intake Total 3879 ml 1288 ml 706 ml 543 ml Output Total 400 ml 1000 ml 525 ml 375 ml Balance 3479 ml 288 ml 181 ml 168 ml Intake Oral 240 ml 100 ml IV Total 3879 ml 1048 ml 606 ml 543 ml Output Urine Total 400 ml 1000 ml 525 ml 375 ml Laboratory GENERAL: SKIN: Warm and dry. HEAD: Normocephalic. EYES: No scleral icterus. No injection or drainage. NECK: Supple, trachea midline. No JVD or lymphadenopathy. CARDIOVASCULAR: Regular rate and rhythm without murmurs, gallops, or rubs. RESPIRATORY: Breath sounds equal bilaterally. No accessory muscle use. GASTROINTESTINAL: Abdomen soft, non-tender, nondistended. MUSCULOSKELETAL: No cyanosis, or edema. BACK: Nontender without obvious deformity. No CVA tenderness. Laboratory Tests Test 11/24/16 11/25/16 11/25/16 16:27 00:20 05:45 Hemoglobin 8.8 GM/DL 8.1 GM/DL Hematocrit 27.1 % 24.0 % Sodium Level 138 MEQ/L 139 MEQ/L Potassium Level 3.7 MEQ/L 3.1 MEQ/L Chloride Level 108 MEQ/L 109 MEQ/L Carbon Dioxide Level 19.6 MEQ/L 22.4 MEQ/L Anion Gap 10 MEQ/L 8 MEQ/L Blood Urea Nitrogen 23 MG/DL 14 MG/DL Creatinine 0.99 MG/DL 0.66 MG/DL Estimat Glomerular Filtration 77 ML/MIN 124 ML/MIN Rate Random Glucose 178 MG/DL 87 MG/DL Calcium Level 6.5 MG/DL 6.6 MG/DL Protein Corrected Calcium 7.8 MG/DL 7.9 MG/DL Phosphorus Level 2.0 MG/DL 1.7 MG/DL Magnesium Level 1.7 MG/DL 1.8 MG/DL Troponin I 2.27 NG/ML 2.01 NG/ML Total Protein 4.5 GM/DL 4.5 GM/DL Lipase 3890 U/L 3554 U/L B-Hydroxybutyrate 0.17 MMOL/L White Blood Count 9.8 TH/MM3 Red Blood Count 2.64 MIL/MM3 Mean Corpuscular Volume 91.1 FL Mean Corpuscular Hemoglobin 30.5 PG Mean Corpuscular Hemoglobin 33.5 % Concent Red Cell Distribution Width 15.6 % Platelet Count 133 TH/MM3 Mean Platelet Volume 9.1 FL Neutrophils (%) (Auto) 68.3 % Lymphocytes (%) (Auto) 24.7 % Monocytes (%) (Auto) 5.5 % Eosinophils (%) (Auto) 1.2 % Basophils (%) (Auto) 0.3 % Neutrophils # (Auto) 6.7 TH/MM3 Lymphocytes # (Auto) 2.4 TH/MM3 Monocytes # (Auto) 0.5 TH/MM3 Eosinophils # (Auto) 0.1 TH/MM3 Basophils # (Auto) 0.0 TH/MM3 CBC Comment DIFF FINAL Differential Comment Total Bilirubin 0.3 MG/DL Aspartate Amino Transf 32 U/L (AST/SGOT) Alanine Aminotransferase 23 U/L (ALT/SGPT) Alkaline Phosphatase 92 U/L Albumin 2.2 GM/DL Assessment and Plan Problem List: (1) CAD (coronary artery disease) (2) Diabetic ketoacidosis (3) Acute kidney insufficiency (4) Anemia due to blood loss, acute Assessment and Plan 1.) CAD - s/p nstemi suspect secondary to combination of hypoxia, anemia and hypotension, continue medical management Trino Collazo MD November 25, 2016 15:36
--- NOTE | 2016-11-25 16:30 | HHI.CCPN ---
Subjective Remarks/Hospital Course History from patient is somewhat limited due to lethargy. He is oriented but is very slow to answer questions and is not able to provide a lot of details about medical history. 61-year-old with past medical history of insulin-dependent diabetes mellitus, coronary artery disease with prior CABG, peripheral arterial disease status post right AKA. He states that he has a 3 day history of malaise, vomiting, abdominal discomfort. He states his glucose has been running high and he has been trying to administer insulin but has not been able to get his glucose down. He states he vomited three times, nonbloody nonbilious. Denies diarrhea. He presented to [facility] emergency department and was in DKA with VBG with a pH of 7.22/PaCO2 24. Bicarbonate is 11, creatinine 2.51 with BUN of 54. Glucose is 780. Lactic acid 9.8. Lipase is elevated at 1778. WBC 19. 5/12 Patient is on insulin drip 3units/hr, troponin 6.84 last night with CKMB 10.5. EKG this monitoring unchanged. Patient denies any chest pain or SOB. Afebrile. 11/25 Objective Vital Signs Date Time Temp Pulse Resp B/P Pulse Ox O2 Delivery O2 Flow Rate FiO2 11/25/16 16:16 81 11/25/16 16:00 98.2 17 136/80 100 11/23/16 21:00 Room Air Intake and Output 11/24/16 11/24/16 11/25/16 08:00 16:00 00:00 Intake Total 3879 ml 1288 ml 706 ml Output Total 400 ml 1000 ml 525 ml Balance 3479 ml 288 ml 181 ml Result Diagram: 11/25/16 0545 11/25/16 0545 Imaging Last Impressions Head CT 11/24/16 0000 Signed Impressions: Service Date/Time: Thursday, November 24, 2016 01:43 - CONCLUSION: Normal examination for a patient of this age. No significant change has occurred. Aubrey Izquierdo MD Chest X-Ray 11/23/16 0000 Signed Impressions: Service Date/Time: November 17:07 - CONCLUSION: No acute cardiopulmonary process to explain current clinical symptoms. Tyler Lopez MD Abdomen/Pelvis CT 11/23/16 0000 Signed Impressions: Service Date/Time: November 20:47 - CONCLUSION: No definite acute CT findings in the abdomen or pelvis. Ramon Mahmood MD Objective Remarks GENERAL: Patient is 61 yo lying in bed in NAD SKIN: Warm and dry. HEAD: Normocephalic. EYES: No scleral icterus. No injection or drainage. NECK: Supple, trachea midline. No JVD or lymphadenopathy. CARDIOVASCULAR: Regular rate and rhythm without murmurs, gallops, or rubs. RESPIRATORY: Breath sounds equal bilaterally. No accessory muscle use. GASTROINTESTINAL: Abdomen soft, non-tender, nondistended. MUSCULOSKELETAL: No cyanosis, or edema. BACK: Nontender without obvious deformity. No CVA tenderness. Neuro: Awake and alert A/P Assessment and Plan NEURO: Peripheral neuropathy On Lyrica to 25 mg TID. Home dose is 75 mill grams by mouth 3 times a day Nortriptyline 50 mg by mouth daily at bedtime Lortab as needed for pain. RESP: Tobacco abuse Oxygen PRN keep sat >92% Chest x-ray clear on admission. CV: Hypertension Hyperlipidemia Coronary artery disease status post CABG Peripheral arterial disease status post right AKA Lactic acidemia- Resolved Elevated trop/NSTEMI Monitor HR and BP keep MAP>65mmHg Continue Plavix 75 mg by mouth daily lisinopril 10 mg daily on hold for RENE Coreg and Norvasc on hold for borderline low BP Monitor CK/trop, cards consulted, 2D echo ordered. Given ASA x1 early this morning. Lactic acid cleared. GI: GERD Elevated lipase of unclear significance? Pancreatitis CT abdomen and pelvis obtained noncontrast demonstrates no acute intra- abdominal abnormality. Monitor Lipase level. Nothing by mouth Continue Protonix 40 mg IV daily FEN/RENAL: Acute kidney injury- improving Acute dehydration Monitor renal function, I/O's, avoid nephrotoxins, electrolytes replacement per protocol. Cr: 1.70 this morning from 2.51 on arrival Continue with IVF-D5NS@200ml/hr ID: Leukocytosis. ? reactive UA and chest x-ray are unremarkable for evidence of infection. No evidence of skin or soft tissue infection. Received cefepime and vancomycin in the emergency department. Continue Zosyn for now. Monitor for signs of infections ( Fever, WBC). Follow up on cxs HEME: Chronic anemia B 12 deficiency Monitor CBC ENDO: DKA Hypothyroidism On insulin drip per DKA protocol. Transition to SSI with long acting insulin once AG is closed. Continue Synthroid 100 g daily PROPH: SCDs for DVT prophylaxis. Patient denies any prior issues with heparin in past. Denies any prior hx of bleeding. Place on Heain SQ for now if there is any rise in troponin will switch to heparin drip. Protonix 40 g IV daily for stress ulcer prophylaxis. ACCESS: Right EJ and peripheral IV in place Level.3 Camilla Evangelista MD November 25, 2016 16:30
[2016-11-25] MEDS: ACETAMINOPHEN/HYDROcodone 325 MG/10 MG TAB PO SCH (17:01)
--- NOTE | 2016-11-25 17:02 | HHI.CCPN ---
Subjective Remarks/Hospital Course History from patient is somewhat limited due to lethargy. He is oriented but is very slow to answer questions and is not able to provide a lot of details about medical history. 61-year-old with past medical history of insulin-dependent diabetes mellitus, coronary artery disease with prior CABG, peripheral arterial disease status post right AKA. He states that he has a 3 day history of malaise, vomiting, abdominal discomfort. He states his glucose has been running high and he has been trying to administer insulin but has not been able to get his glucose down. He states he vomited three times, nonbloody nonbilious. Denies diarrhea. He presented to [facility] emergency department and was in DKA with VBG with a pH of 7.22/PaCO2 24. Bicarbonate is 11, creatinine 2.51 with BUN of 54. Glucose is 780. Lactic acid 9.8. Lipase is elevated at 1778. WBC 19. 5/12 Patient is on insulin drip 3units/hr, troponin 6.84 last night with CKMB 10.5. EKG this monitoring unchanged. Patient denies any chest pain or SOB. Afebrile. 11/25: The patient has been transitioned to subcutaneous insulin, and continues on normal saline infusion at 75 cc an hour. The patient has a history of chronic pain syndrome [place] 10/325 was reinstituted to his medication regimen. Patient's hemoglobin noted to continue to decrease. Discussed with GI, tentative plans for possible EGD. Objective Vital Signs Date Time Temp Pulse Resp B/P Pulse Ox O2 Delivery O2 Flow Rate FiO2 11/25/16 16:16 81 11/25/16 16:00 98.2 17 136/80 100 11/23/16 21:00 Room Air Intake and Output 11/24/16 11/24/16 11/25/16 08:00 16:00 00:00 Intake Total 3879 ml 1288 ml 706 ml Output Total 400 ml 1000 ml 525 ml Balance 3479 ml 288 ml 181 ml Result Diagram: 11/25/16 0545 11/25/16 0545 Imaging Last Impressions Head CT 11/24/16 0000 Signed Impressions: Service Date/Time: Thursday, November 24, 2016 01:43 - CONCLUSION: Normal examination for a patient of this age. No significant change has occurred. Aubrey Izquierdo MD Chest X-Ray 11/23/16 0000 Signed Impressions: Service Date/Time: November 17:07 - CONCLUSION: No acute cardiopulmonary process to explain current clinical symptoms. Tyler Lopez MD Abdomen/Pelvis CT 11/23/16 0000 Signed Impressions: Service Date/Time: November 20:47 - CONCLUSION: No definite acute CT findings in the abdomen or pelvis. Ramon Mahmood MD Objective Remarks GENERAL: The patient is 61 yo well-developed well-nourished male lying in bed in NAD SKIN: Warm and dry. HEAD: Normocephalic. EYES: No scleral icterus. No injection or drainage. NECK: Supple, trachea midline. No JVD or lymphadenopathy. CARDIOVASCULAR: Regular rate and rhythm without murmurs, gallops, or rubs. RESPIRATORY: Breath sounds equal bilaterally. No accessory muscle use. GASTROINTESTINAL: Abdomen soft, non-tender, nondistended. MUSCULOSKELETAL: No cyanosis, or edema. BACK: Nontender without obvious deformity. No CVA tenderness. Neuro: Awake and alert A/P Assessment and Plan NEURO: Peripheral neuropathy On Lyrica to 25 mg TID. Home dose is 75 milligrams by mouth 3 times a day Nortriptyline 50 mg by mouth daily at bedtime Home med Lortab as needed for pain. RESP: Tobacco abuse Oxygen PRN keep sat >92% Chest x-ray clear on admission. CV: Hypertension Hyperlipidemia Coronary artery disease status post CABG Peripheral arterial disease status post right AKA Lactic acidemia- Resolved Elevated trop/NSTEMI Monitor HR and BP keep MAP>65mmHg Continue Plavix 75 mg by mouth daily lisinopril 10 mg daily on hold for RENE Coreg and Norvasc on hold for borderline low BP Monitor CK/trop, cards consulted, 2D echo ordered. Given ASA x1 early this morning. Lactic acid cleared. GI: GERD Elevated lipase of unclear significance? Pancreatitis CT abdomen and pelvis obtained noncontrast demonstrates no acute intra- abdominal abnormality. Monitor Lipase level. Nothing by mouth Continue Protonix 40 mg IV daily FEN/RENAL: Acute kidney injury- improving Acute dehydration Monitor renal function, I/O's, avoid nephrotoxins, electrolytes replacement per protocol. Creatinine-improving Continue with IVF-D5NS@200ml/hr ID: Leukocytosis. ? reactive UA and chest x-ray are unremarkable for evidence of infection. No evidence of skin or soft tissue infection. Received cefepime and vancomycin in the emergency department. Continue Zosyn for now. Monitor for signs of infections ( Fever, WBC). Follow up on cxs HEME: Chronic anemia B 12 deficiency Monitor CBC ENDO: DKA Hypothyroidism Transition to SSI with long acting insulin . Continue Synthroid 100 g daily PROPH: SCDs for DVT prophylaxis. Patient denies any prior issues with heparin in past. Denies any prior hx of bleeding. Place on Heain SQ for now if there is any rise in troponin will switch to heparin drip. Protonix 40 g IV daily for stress ulcer prophylaxis. ACCESS: Right EJ and peripheral IV in place Level.3 Physician Camilla Ornelas MD November 25, 2016 17:02
[2016-11-25] MEDS: NORTRIPTYLINE HCL 25 MG CAP PO SCH (20:49)
[2016-11-26] VITALS (12 sets, daily range): BP systolic 128–176; BP diastolic 59–92; PULSE 71–88; RESP 14–23; TEMP 97.3–98.2; O2SAT 97–100
[2016-11-26] MEDS: ACETAMINOPHEN/HYDROcodone 325 MG/10 MG TAB PO SCH ×5 (00:10→23:52)
[2016-11-26] MEDS: SODIUM CHLOR 0.9% 1000 ML INJ 1,000 ML IV SCH ×3 (01:12→14:50)
[2016-11-26] MEDS: INSULIN NovoLIN REGULAR SUPPLEMENTAL SCALE SQ SCH ×7 (02:00→23:52)
[2016-11-26] MEDS: CHLORHEXIDINE GLUCONATE 2 % 1 PACK (2 CLOTHS) TOP SCH (04:00)
[2016-11-26] MEDS: PIPERACIL-TAZO 3.375 GM PREMIX 50 ML IV SCH ×4 (04:14→19:54)
[2016-11-26] MEDS: LEVOTHYROXINE SODIUM 100 MCG TAB PO SCH (05:43)
[2016-11-26] MEDS: PREGABALIN 25 MG CAP PO SCH ×3 (05:43→19:55)
--- NOTE | 2016-11-26 08:44 | RADRPT ---
EXAM DATE/TIME: 11/26/2016 07:30 [place] COMPARISON: CT ABDOMEN & PELVIS W/O CONTRAST, November 23, 2016, 20:47. INDICATIONS : Pancreatitis. MEDICAL HISTORY : Peripheral vascular disease. Hypercholesterolemia. Myocardial infarction. Thyroid disease. Neuropathy . Heart attack. Coronary artery disease. HTN. Seizures. Arthritis. Two hydroceles. Diabetes. SURGICAL HISTORY : Tonsillectomy. Appendectomy. Coronary artery bypass graft. L1, S1 fusion. Cholectomy. Left shoulder blade. Pin in right leg. ENCOUNTER: Initial ACUITY: 3 days PAIN SCORE: 6/10 LOCATION: Bilateral upper quadrant MEASUREMENTS: LIVER: 16.6 cm length COMMON DUCT: 5 mm RIGHT KIDNEY: 11.5 x 5.1 x 5.0 cm LEFT KIDNEY: 13.5 x 4.8 x 6.9 cm SPLEEN: 12.9 cm length AORTA: 1.9cm maximal FINDINGS: LIVER: Normal echotexture without focal lesion or ductal dilatation. Hepatopedal flow. COMMON DUCT: No intraluminal mass or stone visualized. GALLBLADDER: Contains no stones, demonstrates no wall thickening or pericholecystic fluid. PANCREAS: The visualized portions are within normal limits. Calcification within the pancreatic tail likely vas cular. RIGHT KIDNEY: No hydronephrosis, stone or mass. LEFT KIDNEY: No hydronephrosis, stone or mass. SPLEEN: No focal lesion. AORTA: Non aneurysmal. IVC: Within normal limits. Bilateral pleural effusions are seen. CONCLUSION: 1. Pancreas appears unremarkable. 2. No evidence for cholelithiasis. 3. Small bilateral pleural effusions. Eddy Meneses MD on November 26, 2016 at 8:38 Board Certified Radiologist. This report was verified electronically.
[2016-11-26] MEDS: INSULIN DETEMIR 100 UNITS/ML VIAL SQ SCH ×2 (09:00→19:56)
[2016-11-26] MEDS: SODIUM CHLORIDE 0.9% FLUSH 10 ML FLUSH SCH ×2 (09:00→19:55)
[2016-11-26] MEDS: PANTOPRAZOLE SODIUM 40 MG VIAL IV SCH (09:26)
[2016-11-26] MEDS: CLOPIDOGREL 75 MG TAB PO SCH (09:27)
[2016-11-26] MEDS: HEPARIN SODIUM - SQ 10,000 UNITS/ML VIAL SQ SCH ×2 (09:27→19:54)
--- NOTE | 2016-11-26 09:50 | HHI.GIFU ---
GI Follow-up Note Consult Follow-up Subjective: Patient laying in bed comfortably, feeling better, complaining of epigastric pian , mostly after swallowing .No indication of active bleeding, labs pending today .Has history of gastroparesis, Partida's esophagus , recent and old studies no indication of gallstones or biliary pathology Objective: PHYSICAL EXAMINATION: Vitals signs stable No fever Vital Signs Date Time Temp Pulse Resp B/P Pulse Ox O2 Delivery O2 Flow Rate FiO2 11/26/16 06:00 80 11/26/16 04:00 97.3 79 23 164/85 98 11/26/16 04:00 79 11/26/16 02:00 79 HEENT: Pupils round and reactive to light; normocephalic; atraumatic; no jaundice. Throat is clear. NECK: Neck is supple, no JVD, no lymphadenopathy. CHEST: Chest is clear to auscultation and percussion. CARDIAC: Regular rate and rhythm with no murmur gallop or rubs. ABDOMEN: Soft, nondistended, nontender; no hepatosplenomegaly; bowel sounds are present in all four quadrants, concave , surgical scars EXTREMITIES: No clubbing, cyanosis, or edema, right aka SKIN: Normal; no rash; no jaundice. FLIGHT ATTENDANT RAMP: No focal deficits; alert and oriented times three. Available Data (labs, X- Rays, Procedues) : Laboratory Tests Test 11/24/16 11/24/16 11/25/16 11/25/16 12:10 16:27 00:20 05:45 Sodium Level 136 MEQ/L 138 MEQ/L 139 MEQ/L Potassium Level 4.1 MEQ/L 3.7 MEQ/L 3.1 MEQ/L Chloride Level 108 MEQ/L 108 MEQ/L 109 MEQ/L Carbon Dioxide Level 17.9 MEQ/L 19.6 MEQ/L 22.4 MEQ/L Anion Gap 10 MEQ/L 10 MEQ/L 8 MEQ/L Blood Urea Nitrogen 29 MG/DL 23 MG/DL 14 MG/DL Creatinine 1.00 MG/DL 0.99 MG/DL 0.66 MG/DL Estimat Glomerular Filtration 76 ML/MIN 77 ML/MIN 124 ML/MIN Rate Random Glucose 195 MG/DL 178 MG/DL 87 MG/DL Lactic Acid Level 2.0 mmol/L Calcium Level 6.6 MG/DL 6.5 MG/DL 6.6 MG/DL Protein Corrected Calcium 7.7 MG/DL 7.8 MG/DL 7.9 MG/DL Phosphorus Level 3.0 MG/DL 2.0 MG/DL 1.7 MG/DL Magnesium Level 1.8 MG/DL 1.7 MG/DL 1.8 MG/DL Total Creatine Kinase 202 U/L Creatine Kinase MB 13.9 NG/ML Troponin I 2.89 NG/ML 2.27 NG/ML 2.01 NG/ML Total Protein 4.9 GM/DL 4.5 GM/DL 4.5 GM/DL Hemoglobin 8.8 GM/DL 8.1 GM/DL Hematocrit 27.1 % 24.0 % Lipase 3890 U/L 3554 U/L B-Hydroxybutyrate 0.17 MMOL/L White Blood Count 9.8 TH/MM3 Red Blood Count 2.64 MIL/MM3 Mean Corpuscular Volume 91.1 FL Mean Corpuscular Hemoglobin 30.5 PG Mean Corpuscular Hemoglobin 33.5 % Concent Red Cell Distribution Width 15.6 % Platelet Count 133 TH/MM3 Mean Platelet Volume 9.1 FL Neutrophils (%) (Auto) 68.3 % Lymphocytes (%) (Auto) 24.7 % Monocytes (%) (Auto) 5.5 % Eosinophils (%) (Auto) 1.2 % Basophils (%) (Auto) 0.3 % Neutrophils # (Auto) 6.7 TH/MM3 Lymphocytes # (Auto) 2.4 TH/MM3 Monocytes # (Auto) 0.5 TH/MM3 Eosinophils # (Auto) 0.1 TH/MM3 Basophils # (Auto) 0.0 TH/MM3 CBC Comment DIFF FINAL Differential Comment Total Bilirubin 0.3 MG/DL Aspartate Amino Transf 32 U/L (AST/SGOT) Alanine Aminotransferase 23 U/L (ALT/SGPT) Alkaline Phosphatase 92 U/L Albumin 2.2 GM/DL ASSESSMENT/PLAN: pancreatitis etiology unclear-possible medication induced, r/o pud anemia, drop in hb patient on plavix/heparin concern for pud -no indication of active bleeding history of Partida's , odynophagia needs egd Recommendations egd in am if cardiac clearance obtained transfuse 2 units of prbc-keep hb above 10 if egd negative HIDA scan/MRCP clear liquid diet cbc, cmp, lipase, lipid profile today It was a pleasure seeing Ezio Aragon. Thank you for this consult. Entered by: Shu Fair MD November 26, 2016 09:49
--- NOTE | 2016-11-26 10:33 | PD.CARD.PN ---
Subjective Subjective Remarks denies chest pain Objective Vital Signs / I&O Vital Signs Date Time Temp Pulse Resp B/P Pulse Ox O2 Delivery O2 Flow Rate FiO2 11/26/16 06:00 80 11/26/16 04:00 97.3 79 23 164/85 98 11/26/16 04:00 79 11/26/16 02:00 79 11/26/16 00:00 97.8 85 17 148/77 99 11/26/16 00:00 83 11/25/16 22:00 86 11/25/16 20:00 84 11/25/16 20:00 98.0 83 18 127/60 100 11/25/16 18:01 16 11/25/16 18:00 81 11/25/16 16:21 16 11/25/16 16:16 81 11/25/16 16:00 98.2 81 17 136/80 100 11/25/16 14:00 81 11/25/16 12:00 81 11/25/16 10:41 16 I/O 11/25/16 11/25/16 11/25/16 11/26/16 11/26/16 11/26/16 07:00 15:00 23:00 07:00 15:00 23:00 Intake Total 543 ml 1171 ml 1046 ml 781 ml Output Total 375 ml 1300 ml 1600 ml 2200 ml Balance 168 ml -129 ml -554 ml -1419 ml Intake Oral 480 ml 480 ml 240 ml IV Total 543 ml 691 ml 566 ml 541 ml Output Urine Total 375 ml 1300 ml 1600 ml 2200 ml # Bowel Movements 2 0 0 Physical Exam GENERAL: SKIN: Warm and dry. HEAD: Normocephalic. EYES: No scleral icterus. No injection or drainage. NECK: Supple, trachea midline. No JVD or lymphadenopathy. CARDIOVASCULAR: Regular rate and rhythm without murmurs, gallops, or rubs. RESPIRATORY: Breath sounds equal bilaterally. No accessory muscle use. GASTROINTESTINAL: Abdomen soft, non-tender, nondistended. MUSCULOSKELETAL: No cyanosis, or edema. BACK: Nontender without obvious deformity. No CVA tenderness. Assessment and Plan Problem List: (1) CAD (coronary artery disease) (2) Diabetic ketoacidosis (3) Acute kidney insufficiency (4) Anemia due to blood loss, acute Assessment and Plan 1.) CAD - s/p nstemi suspect secondary to combination of hypoxia, anemia and hypotension, continue plavix 75 mg qd, start altace 5 mg qd, beta serafin held due to unstable hgb and anemia; check lipids/lfts; high risk for noncardiac procedure due to recent nstemi, cad, dm Trino Collazo MD November 26, 2016 10:33
[2016-11-26 10:44] LABS: AUTOMATED NEUTROPHIL # 4.2 TH/MM3 (1.8-7.7); BASOPHIL % 0.5 % (0.0-2.0); EOSINOPHIL # 0.2 TH/MM3 (0-0.4); EOSINOPHIL % 2.9 % (0.0-4.0); HEMATOCRIT 27.9 % (39.0-51.0); HEMO FLAGS DIFF FINAL; LYMPHOCYTE # 2.3 TH/MM3 (1.0-4.8); MEAN CELL VOLUME 91.2 FL (80.0-100.0); MEAN CORPUSCULAR HEMOGLOBIN 30.7 PG (27.0-34.0); MEAN CORPUSCULAR HGB CONC 33.7 % (32.0-36.0); NEUT % 57.6 % (16.0-70.0); PLATELET COUNT 110 TH/MM3 (150-450); RED BLOOD COUNT 3.06 MIL/MM3 (4.50-5.90); RED CELL DISTRIBUTION WIDTH 15.5 % (11.6-17.2); WHITE BLOOD COUNT 7.2 TH/MM3 (4.0-11.0)
[2016-11-26 11:23] LABS: CALCIUM-PROTEIN CORRECTED 8.7 MG/DL (8.5-10.1); MAGNESIUM 1.6 MG/DL (1.5-2.5); TOTAL BILIRUBIN ADULT 0.6 MG/DL (0.2-1.0)
[2016-11-26 11:26] LABS: POTASSIUM 4.1 MEQ/L (3.5-5.1)
--- NOTE | 2016-11-26 16:46 | HHI.CCPN ---
Subjective Remarks/Hospital Course History from patient is somewhat limited due to lethargy. He is oriented but is very slow to answer questions and is not able to provide a lot of details about medical history. 61-year-old with past medical history of insulin-dependent diabetes mellitus, coronary artery disease with prior CABG, peripheral arterial disease status post right AKA. He states that he has a 3 day history of malaise, vomiting, abdominal discomfort. He states his glucose has been running high and he has been trying to administer insulin but has not been able to get his glucose down. He states he vomited three times, nonbloody nonbilious. Denies diarrhea. He presented to [facility] emergency department and was in DKA with VBG with a pH of 7.22/PaCO2 24. Bicarbonate is 11, creatinine 2.51 with BUN of 54. Glucose is 780. Lactic acid 9.8. Lipase is elevated at 1778. WBC 19. 5/12 Patient is on insulin drip 3units/hr, troponin 6.84 last night with CKMB 10.5. EKG this monitoring unchanged. Patient denies any chest pain or SOB. Afebrile. 11/25: The patient has been transitioned to subcutaneous insulin, and continues on normal saline infusion at 75 cc an hour. The patient has a history of chronic pain syndrome [place] 10/325 was reinstituted to his medication regimen. Patient's hemoglobin noted to continue to decrease. Discussed with GI, tentative plans for possible EGD. 11/26: Plan for EGD tomorrow secondary to anemia. The patient is being transfused 2 units of packed red blood cells today to maintain a hemoglobin of 10.0. Normotensive. Objective Vital Signs Date Time Temp Pulse Resp B/P Pulse Ox O2 Delivery O2 Flow Rate FiO2 11/26/16 16:00 71 11/26/16 04:00 97.3 23 164/85 98 11/23/16 21:00 Room Air Intake and Output 11/25/16 11/25/16 11/25/16 07:59 15:59 23:59 Intake Total 543 ml 1171 ml 1046 ml Output Total 375 ml 1300 ml 1600 ml Balance 168 ml -129 ml -554 ml Result Diagram: 11/26/16 1025 11/26/16 1025 Imaging Last Impressions Head CT 11/24/16 0000 Signed Impressions: Service Date/Time: Thursday, November 24, 2016 01:43 - CONCLUSION: Normal examination for a patient of this age. No significant change has occurred. Aubrey Izquierdo MD Chest X-Ray 11/23/16 0000 Signed Impressions: Service Date/Time: November 17:07 - CONCLUSION: No acute cardiopulmonary process to explain current clinical symptoms. Tyler Lopez MD Abdomen/Pelvis CT 11/23/16 0000 Signed Impressions: Service Date/Time: November 20:47 - CONCLUSION: No definite acute CT findings in the abdomen or pelvis. Ramon Mahmood MD Objective Remarks GENERAL: The patient is 61 yo well-developed well-nourished male lying in bed in NAD SKIN: Warm and dry. HEAD: Normocephalic. EYES: No scleral icterus. No injection or drainage. NECK: Supple, trachea midline. No JVD or lymphadenopathy. CARDIOVASCULAR: Regular rate and rhythm without murmurs, gallops, or rubs. RESPIRATORY: Breath sounds equal bilaterally. No accessory muscle use. GASTROINTESTINAL: Abdomen soft, non-tender, nondistended. MUSCULOSKELETAL: No cyanosis, or edema. BACK: Nontender without obvious deformity. No CVA tenderness. Neuro: Awake and alert A/P Assessment and Plan NEURO: Peripheral neuropathy On Lyrica to 25 mg TID. Home dose is 75 milligrams by mouth 3 times a day Nortriptyline 50 mg by mouth daily at bedtime Home med Lortab as needed for pain. RESP: Tobacco abuse Oxygen PRN keep sat >92% Chest x-ray clear on admission. Initiate incentive spirometry CV: Hypertension Hyperlipidemia Coronary artery disease status post CABG Peripheral arterial disease status post right AKA Lactic acidemia- Resolved Elevated trop/NSTEMI Monitor HR and BP keep MAP>65mmHg Continue Plavix 75 mg by mouth daily lisinopril 10 mg daily on hold for RENE Coreg and Norvasc on hold for borderline low BP Monitor CK/trop, cards consulted-Dr. Collazo 2D echo-EF 60-65% Given ASA x1 early this morning. Lactic acid cleared. GI: GERD Elevated lipase of unclear significance? Pancreatitis CT abdomen and pelvis obtained noncontrast demonstrates no acute intra- abdominal abnormality. Monitor Lipase level. Nothing by mouth Continue Protonix 40 mg IV daily FEN/RENAL: Acute kidney injury- improving Acute dehydration Monitor renal function, I/O's, avoid nephrotoxins, electrolytes replacement per protocol. Creatinine-improving Continue with IVF-D5NS@75ml/hr ID: Leukocytosis. ? reactive UA and chest x-ray are unremarkable for evidence of infection. No evidence of skin or soft tissue infection. Received cefepime and vancomycin in the emergency department. Continue Zosyn for now. Monitor for signs of infections ( Fever, WBC). Follow up on cxs HEME: Chronic anemia B 12 deficiency Monitor CBC ENDO: DKA Hypothyroidism Transition to SSI with long acting insulin . Continue Synthroid 100 g daily PROPH: SCDs for DVT prophylaxis. Patient denies any prior issues with heparin in past. Denies any prior hx of bleeding. Place on Heparin SQ for now if there is any rise in troponin will switch to heparin drip. Protonix 40 g IV daily for stress ulcer prophylaxis. ACCESS: Right EJ and peripheral IV in place Level.3 and for transfer to [facility] in a.. Physician Camilla Ornelas MD November 26, 2016 16:46
[2016-11-26] MEDS: METOPROLOL TARTRATE 5 MG/5 ML VIAL IV PUSH PRN (16:59)
[2016-11-26] MEDS: NORTRIPTYLINE HCL 25 MG CAP PO SCH (19:55)
[2016-11-26] MEDS: ONDANSETRON HCL 4 MG/2 ML VIAL IV PRN (23:56)
[2016-11-27] VITALS (21 sets, daily range): BP systolic 125–168; BP diastolic 75–88; PULSE 71–94; RESP 11–20; TEMP 97.9–98.5; O2SAT 97–100
[2016-11-27] MEDS: PIPERACIL-TAZO 3.375 GM PREMIX 50 ML IV SCH ×4 (03:36→21:57)
[2016-11-27] MEDS: METOPROLOL TARTRATE 5 MG/5 ML VIAL IV PUSH PRN (03:36)
[2016-11-27] MEDS: SODIUM CHLOR 0.9% 1000 ML INJ 1,000 ML IV SCH ×3 (03:37→20:53)
[2016-11-27] MEDS: CHLORHEXIDINE GLUCONATE 2 % 1 PACK (2 CLOTHS) TOP SCH (03:37)
[2016-11-27] MEDS: PREGABALIN 25 MG CAP PO SCH ×3 (05:29→21:56)
[2016-11-27] MEDS: ACETAMINOPHEN/HYDROcodone 325 MG/10 MG TAB PO SCH ×3 (05:29→17:40)
[2016-11-27] MEDS: INSULIN NovoLIN REGULAR SUPPLEMENTAL SCALE SQ SCH ×5 (05:29→21:56)
[2016-11-27] MEDS: LEVOTHYROXINE SODIUM 100 MCG TAB PO SCH (05:29)
[2016-11-27 06:47] LABS: HEMATOCRIT 41.2 % (39.0-51.0); MEAN CELL VOLUME 86.7 FL (80.0-100.0); MEAN CORPUSCULAR HEMOGLOBIN 29.9 PG (27.0-34.0); MEAN CORPUSCULAR HGB CONC 34.5 % (32.0-36.0); PLATELET COUNT 126 TH/MM3 (150-450); RED BLOOD COUNT 4.75 MIL/MM3 (4.50-5.90); RED CELL DISTRIBUTION WIDTH 17.5 % (11.6-17.2); REVIEW FLAG FINAL; WHITE BLOOD COUNT 7.8 TH/MM3 (4.0-11.0)
[2016-11-27 07:04] LABS: BICARBONATE 24.1 MEQ/L (21.0-32.0); HDL CHOLESTEROL 29.3 MG/DL (40.0-60.0); MAGNESIUM 1.7 MG/DL (1.5-2.5); POTASSIUM 3.4 MEQ/L (3.5-5.1)
[2016-11-27] MEDS: PANTOPRAZOLE SODIUM 40 MG VIAL IV SCH (08:49)
[2016-11-27] MEDS: INSULIN DETEMIR 100 UNITS/ML VIAL SQ SCH ×2 (08:50→21:00)
[2016-11-27] MEDS: SODIUM CHLORIDE 0.9% FLUSH 10 ML FLUSH SCH ×2 (08:50→20:52)
[2016-11-27] MEDS: HEPARIN SODIUM - SQ 10,000 UNITS/ML VIAL SQ SCH ×2 (08:50→20:52)
[2016-11-27 12:14] LABS: HEMATOCRIT 41.8 % (39.0-51.0); REVIEW FLAG FINAL
[2016-11-27] MEDS: ONDANSETRON HCL 4 MG/2 ML VIAL IV PRN ×2 (12:58→17:39)
[2016-11-27] MEDS ORDERED: PROPOFOL 200 MG/20 ML AMP IV ONE (14:13)
--- NOTE | 2016-11-27 14:21 | PD.CARD.PN ---
Subjective Subjective Remarks alert in nad Objective Vital Signs / I&O Vital Signs Date Time Temp Pulse Resp B/P Pulse Ox O2 Delivery O2 Flow Rate FiO2 11/27/16 10:00 71 11/27/16 08:00 83 11/27/16 06:00 84 11/27/16 04:00 98.1 72 15 150/85 99 11/27/16 04:00 79 11/27/16 02:00 86 11/27/16 00:00 87 11/27/16 00:00 98.1 86 14 160/88 97 11/26/16 22:00 88 11/26/16 20:00 98.2 83 14 144/82 99 11/26/16 20:00 86 11/26/16 18:34 18 11/26/16 18:00 80 11/26/16 16:00 71 11/26/16 16:00 98.0 85 17 176/92 99 I/O 11/26/16 11/26/16 11/26/16 11/27/16 11/27/16 11/27/16 07:00 15:00 23:00 07:00 15:00 23:00 Intake Total 781 ml 654 ml 868 ml 800 ml Output Total 2200 ml 3700 ml 1700 ml 1350 ml Balance -1419 ml -3046 ml -832 ml -550 ml Intake Oral 240 ml 100 ml 100 ml IV Total 541 ml 654 ml 468 ml 700 ml Packed Cells 300 ml Output Urine Total 2200 ml 3700 ml 1700 ml 1350 ml # Bowel Movements 0 0 0 Physical Exam GENERAL: SKIN: Warm and dry. HEAD: Normocephalic. EYES: No scleral icterus. No injection or drainage. NECK: Supple, trachea midline. No JVD or lymphadenopathy. CARDIOVASCULAR: Regular rate and rhythm without murmurs, gallops, or rubs. RESPIRATORY: Breath sounds equal bilaterally. No accessory muscle use. GASTROINTESTINAL: Abdomen soft, non-tender, nondistended. MUSCULOSKELETAL: No cyanosis, or edema. BACK: Nontender without obvious deformity. No CVA tenderness. Laboratory Laboratory Tests Test 11/27/16 11/27/16 06:06 11:34 White Blood Count 7.8 TH/MM3 Red Blood Count 4.75 MIL/MM3 Hemoglobin 14.2 GM/DL 13.8 GM/DL Hematocrit 41.2 % 41.8 % Mean Corpuscular Volume 86.7 FL Mean Corpuscular Hemoglobin 29.9 PG Mean Corpuscular Hemoglobin 34.5 % Concent Red Cell Distribution Width 17.5 % Platelet Count 126 TH/MM3 Mean Platelet Volume 8.8 FL Sodium Level 135 MEQ/L Potassium Level 3.4 MEQ/L Chloride Level 102 MEQ/L Carbon Dioxide Level 24.1 MEQ/L Anion Gap 9 MEQ/L Blood Urea Nitrogen 6 MG/DL Creatinine 0.54 MG/DL Estimat Glomerular Filtration 156 ML/MIN Rate Random Glucose 98 MG/DL Calcium Level 7.9 MG/DL Phosphorus Level 2.0 MG/DL Magnesium Level 1.7 MG/DL Triglycerides Level 148 MG/DL Cholesterol Level 124 MG/DL LDL Cholesterol 65 MG/DL HDL Cholesterol 29.3 MG/DL Cholesterol/HDL Ratio 4.23 RATIO Assessment and Plan Problem List: (1) CAD (coronary artery disease) (2) Diabetic ketoacidosis (3) Acute kidney insufficiency (4) Anemia due to blood loss, acute Assessment and Plan 1.) CAD - s/p nstemi suspect secondary to combination of hypoxia, anemia and hypotension, continue plavix 75 mg qd, start altace 5 mg qd, start coreg 3.125 mg bid check lipids/lfts; high risk for noncardiac procedure due to recent nstemi, cad, dm Trino Collazo MD November 27, 2016 14:21
--- NOTE | 2016-11-27 14:22 | GIPROC ---
[facility] [address] [facility]. [facility], [address] EGD PROCEDURE REPORT EXAM DATE: 11/27/2016 PATIENT NAME: Ezio Aragon MR #: [id number] BIRTHDATE: 1955 ATTENDING: Elizabeth Herman MD ORDER #: [id number] [employer]REF[employer]ICATED HOUSES TRIMMER: Shorty Joseph Schulman, Neal, and Neelam Kelly STATUS: inpatient INDICATIONS: The patient is a 61 yr old male here for an EGD due to epigastric abdominal pain and vomiting PROCEDURE PERFORMED: EGD w/ biopsy MEDICATIONS: Per Anesthesia and None. TOPICAL ANESTHETIC: none CONSENT: The patient understands the risks and benefits of the procedure and understands that these risks include, but are not limited to: sedation, allergic reaction, infection, perforation and/or bleeding. Alternative means of evaluation and treatment include, among others: physical exam, x-rays, and/or surgical intervention. The patient elects to proceed with this endoscopic procedure. medical equipment was checked for proper function. Hand hygiene and appropriate measures for infection prevention was taken. After the risks, benefits and alternatives of the procedure were thoroughly explained, Informed consent was verified, confirmed and timeout was successfully executed by the treatment team. The patient was anesthetized with topical anesthesia and the Pentax EG-[id number] endoscope was introduced through the mouth and advanced to the second portion of the duodenum. Retroflexed views revealed no abnormalities The gastroscope was then slowly withdrawn and removed. Sever grade D esophagitis covering most of the esophagus, small Bx ewas done. The endoscopy was otherwise normal. ADVERSE EVENTS: There were no complications. IMPRESSIONS: 1. Sever grade D esophagitis covering most of the esophagus, small Bx ewas done 2. Normal endoscopy otherwise 3. Retroflexed views revealed no abnormalities RECOMMENDATIONS: 1. Await biopsy results. Biopsy results will not be ready for 7-10 days. If you don't hear from us in two weeks, call our office for biopsy results. 2. Anti-reflux regimen 3. Continue PPI 4. Avoid NSAIDS PATIENT CONDITION: stable DISPOSITION: Inpatient REPEAT EXAM: Elizabeth Herman MD eSigned: Elizabeth Herman MD 11/27/2016 2:22 PM cc: PATIENT NAME: Ezio Aragon MR#: [id number]
--- NOTE | 2016-11-27 14:28 | HHI.GIFU ---
Subjective Remarks still C/O abdominal pain in MEP area, some nausea no vomiting Objective Vitals I&O Vital Signs Date Time Temp Pulse Resp B/P Pulse Ox O2 Delivery O2 Flow Rate FiO2 11/27/16 10:00 71 11/27/16 08:00 83 11/27/16 06:00 84 11/27/16 04:00 98.1 72 15 150/85 99 11/27/16 04:00 79 11/27/16 02:00 86 11/27/16 00:00 87 11/27/16 00:00 98.1 86 14 160/88 97 11/26/16 22:00 88 11/26/16 20:00 98.2 83 14 144/82 99 11/26/16 20:00 86 11/26/16 18:34 18 11/26/16 18:00 80 11/26/16 16:00 71 11/26/16 16:00 98.0 85 17 176/92 99 I/O 11/26/16 11/26/16 11/26/16 11/27/16 11/27/16 11/27/16 07:00 15:00 23:00 07:00 15:00 23:00 Intake Total 781 ml 654 ml 868 ml 800 ml Output Total 2200 ml 3700 ml 1700 ml 1350 ml Balance -1419 ml -3046 ml -832 ml -550 ml Intake Oral 240 ml 100 ml 100 ml IV Total 541 ml 654 ml 468 ml 700 ml Packed Cells 300 ml Output Urine Total 2200 ml 3700 ml 1700 ml 1350 ml # Bowel Movements 0 0 0 Laboratory Laboratory Tests Test 11/27/16 11/27/16 06:06 11:34 White Blood Count 7.8 Red Blood Count 4.75 Hemoglobin 14.2 13.8 Hematocrit 41.2 41.8 Mean Corpuscular Volume 86.7 Mean Corpuscular Hemoglobin 29.9 Mean Corpuscular Hemoglobin 34.5 Concent Red Cell Distribution Width 17.5 Platelet Count 126 Mean Platelet Volume 8.8 Sodium Level 135 Potassium Level 3.4 Chloride Level 102 Carbon Dioxide Level 24.1 Anion Gap 9 Blood Urea Nitrogen 6 Creatinine 0.54 Estimat Glomerular Filtration 156 Rate Random Glucose 98 Calcium Level 7.9 Phosphorus Level 2.0 Magnesium Level 1.7 Triglycerides Level 148 Cholesterol Level 124 LDL Cholesterol 65 HDL Cholesterol 29.3 Cholesterol/HDL Ratio 4.23 Date/Time Procedure Status Source Growth 11/23/16 16:00 Aerobic Blood Culture - Preliminary Resulted Blood Peripheral NO GROWTH IN 4 DAYS 11/23/16 16:00 Anaerobic Blood Culture - Preliminary Resulted Blood Peripheral NO GROWTH IN 4 DAYS Physical Exam HEENT: Normocephalic; atraumatic; no jaundice. CHEST: CTA CARDIAC: RRR ABDOMEN: Soft, nondistended, nontender; no hepatosplenomegaly; bowel sounds are present in all four quadrants. EXTREMITIES: No clubbing, cyanosis, or edema. SKIN: Normal; no rash; no jaundice. SALESPERSON TERRAZZO TILES: No focal deficits; alert and oriented times three. Assessment and Plan Plan ASSESSMENT: - Nausea, Vomiting, Abdominal pain with elevated lipase. He was admitted for DKA and found to have an elevated lipase of 3925. Abdomen/Pelvis CT (11/23/16)----> No definite acute CT findings in the abdomen or pelvis. He denies any history of pancreatitis. He denies any ETOH use or new medications. Triglycerides have been stable from 6232-4477. His insulin gtt has been discontinued. LFTs are normal. His medications were reviewed and he is on three Class III medications for drug induced acute pancreatitis- atorvastatin, hydrochlorothiazide, Lisinopril. Unclear if this is a true pancreatitis, or perhaps elevated lipase from persistent nausea and vomiting related to DKA. C/O of pain in his shoulders and back. When asked specifically about his stomach, he says, "yeah that too." No nausea/vomiting since he arrived. Had bm. - Anemia with hx of B12 Deficiency. HH trending down. Drop in H/H 10.0/32.5 ( on admission)---> 8.1/24.0. PPI Of note, he is also on plavix/heparin and has elevated troponin. He did have an EGD (06/19/16) and this revealed LA Class D esophagitis noted, retroflexed views revealed no abnormalities. Pathology revealed squamocolumnar mucosa with intestinal metaplasia, consistent with chappell's, and moderate chronic inflammation, negative for dysplasia or malignancy. EGD was recommended in 6 months. Has not noticed any red blood in his stools or dark stools. No appetite. - GERD/Chappell's. PPI. - DKA. Transitioned to sliding scale insulin. Per CCM - RENE, Dehydration. Per CCM. - Non-STEMI/Elevated troponin I, Cardiology following, medical management. Plavix, Heparin. Per cardiology - Leukocytosis, Lactic acidemia. WBC 9.8. BCx no growth 2 day, FLU (-) A/B. Zosyn - Hypothyroidism, chronic anemia,hypertension, hyperlipidemia, coronary artery disease, and peripheral neuropathy. Per primary. 5-15-17 still having some symptom, no GI bleed, HGB stable EGD showed sever esophagitis grade D PLAN: - ALEXANDER diabetic - Cont. Protonix - Monitor HH - Supportive care Elizabeth Herman MD November 27, 2016 14:28
[2016-11-27] MEDS ORDERED: RAMIPRIL 2.5 MG CAP PO ONE (14:30)
[2016-11-27] MEDS ORDERED: CARVEDILOL 3.125 MG TAB PO ONE (14:30)
[2016-11-27] MEDS ORDERED: DO NOT ADM ANY ANTICOAGULANT DRUGS PRN (15:15)
[2016-11-27] MEDS: NORTRIPTYLINE HCL 25 MG CAP PO SCH (20:52)
--- NOTE | 2016-11-27 23:05 | HHI.PR ---
Subjective Remarks Follow up for DKA, NSTEMI, esophagitis. Mr. Aragon is doing well. No fever, chills. Had EGD due to anemia. Objective Vitals Vital Signs Date Time Temp Pulse Resp B/P Pulse Ox O2 Delivery O2 Flow Rate FiO2 11/27/16 19:04 97 21 11/27/16 18:00 72 11/27/16 16:00 75 11/27/16 16:00 98.5 81 12 133/82 100 11/27/16 15:00 83 11 100 11/27/16 14:47 86 16 125/75 99 11/27/16 14:40 97.6 85 15 120/78 96 Nasal Cannula 2 11/27/16 14:30 89 14 121/77 95 Nasal Cannula 2 11/27/16 14:25 98.3 90 12 124/79 99 Nasal Cannula 3 11/27/16 14:00 80 11/27/16 13:00 93 11 144/78 97 11/27/16 12:54 17 11/27/16 12:00 74 11/27/16 12:00 98.2 94 12 168/88 99 11/27/16 11:00 91 11 160/84 97 11/27/16 10:00 89 16 145/83 97 11/27/16 10:00 71 11/27/16 09:01 91 17 134/79 98 11/27/16 09:00 88 20 98 11/27/16 08:00 98.3 86 13 157/85 99 11/27/16 08:00 83 11/27/16 06:00 84 11/27/16 04:00 98.1 72 15 150/85 99 11/27/16 04:00 79 11/27/16 02:00 86 11/27/16 00:00 87 11/27/16 00:00 98.1 86 14 160/88 97 I/O 11/26/16 11/26/16 11/26/16 11/27/16 11/27/16 11/27/16 07:00 15:00 23:00 07:00 15:00 23:00 Intake Total 781 ml 654 ml 868 ml 800 ml 1248 ml Output Total 2200 ml 3700 ml 1700 ml 1350 ml 2250 ml Balance -1419 ml -3046 ml -832 ml -550 ml -1002 ml Intake Oral 240 ml 100 ml 100 ml IV Total 541 ml 654 ml 468 ml 700 ml 1098 ml Packed Cells 300 ml Other 150 ml Output Urine Total 2200 ml 3700 ml 1700 ml 1350 ml 2250 ml # Bowel Movements 0 0 0 0 Result Diagram: 11/27/16 1134 11/27/16 0606 Imaging Last Impressions Abdomen Ultrasound 11/26/16 0000 Signed Impressions: Service Date/Time: Saturday, November 26, 2016 07:30 - CONCLUSION: 1. Pancreas appears unremarkable. 2. No evidence for cholelithiasis. 3. Small bilateral pleural effusions. Eddy Meneses MD Head CT 11/24/16 0000 Signed Impressions: Service Date/Time: Thursday, November 24, 2016 01:43 - CONCLUSION: Normal examination for a patient of this age. No significant change has occurred. Aubrey Izquierdo MD Chest X-Ray 11/23/16 0000 Signed Impressions: Service Date/Time: November 17:07 - CONCLUSION: No acute cardiopulmonary process to explain current clinical symptoms. Tyler Lopez MD Abdomen/Pelvis CT 11/23/16 0000 Signed Impressions: Service Date/Time: November 20:47 - CONCLUSION: No definite acute CT findings in the abdomen or pelvis. Ramon Mahmood MD Objective Remarks GENERAL: AOX3, NAD. SKIN: Warm and dry. HEAD: Normocephalic. EYES: No scleral icterus. No injection or drainage. NECK: Supple, trachea midline. No JVD or lymphadenopathy. CARDIOVASCULAR: Regular rate and rhythm without murmurs, gallops, or rubs. RESPIRATORY: Breath sounds equal bilaterally. No accessory muscle use. GASTROINTESTINAL: Abdomen soft, non-tender, nondistended. MUSCULOSKELETAL: No cyanosis, or edema. BACK: Nontender without obvious deformity. No CVA tenderness. Procedures EGD 11/27/2016 IMPRESSIONS: 1. Sever grade D esophagitis covering most of the esophagus, small Bx ewas done 2. Normal endoscopy otherwise 3. Retroflexed views revealed no abnormalities A/P Assessment and Plan Mr. Aragon is a 61 year old male with a history of DM, CAD who presented to the ED on 11/23/2016 due to generalized weakness, high blood glucose, nausea, vomiting, abdominal pain. He was admitted to the ICU due to DKA. Due to significant elevation in Troponins, Cardiology was consulted. Cardiology recommended plavix but no catheterization. Patient underwent EGD on 11/27/2016 which showed Class D esophagitis. - Coronary artery disease with a history of CABG - NSTEMI - Cardiology recommends continuation of Plavix 75mg Qday. - Continue Carvedilol 3.125mg Q12hrs, Ramipril 2.5mg Qday - If okay with Cardiology and GI, Aspirin 81mg Qday should also be added. - Diabetic ketoacidosis - resolved - Diabetes mellitus - Diabetic neuropathy - Start Levemir 10 units QHS along with sliding scale insulin. - Continue Pregabalin 25mg PO Q8hrs. - Hypothyroidism - Continue Levothyroxine 100 mcg Qday. - Esophagitis - GERD - Continue PPI. - Other - no sign of infection. Patient was on empiric abx. Will discontinue abx Full code. Heparin SQ. Ladan Beavers DO November 27, 2016 23:05
[2016-11-28] VITALS (7 sets, daily range): BP systolic 121–162; BP diastolic 78–94; PULSE 72–95; RESP 12–22; TEMP 96.9–98.1; O2SAT 97–98
[2016-11-28] MEDS: ACETAMINOPHEN/HYDROcodone 325 MG/10 MG TAB PO SCH ×5 (00:15→23:42)
[2016-11-28] MEDS: SODIUM CHLOR 0.9% 1000 ML INJ 1,000 ML IV SCH ×4 (01:09→20:10)
[2016-11-28] MEDS: INSULIN NovoLIN REGULAR SUPPLEMENTAL SCALE SQ SCH ×6 (02:00→21:57)
[2016-11-28] MEDS: CHLORHEXIDINE GLUCONATE 2 % 1 PACK (2 CLOTHS) TOP SCH (04:00)
[2016-11-28] MEDS: PIPERACIL-TAZO 3.375 GM PREMIX 50 ML IV SCH ×4 (04:40→21:59)
[2016-11-28] MEDS: CARVEDILOL 3.125 MG TAB PO SCH ×2 (04:40→16:10)
[2016-11-28] MEDS: LEVOTHYROXINE SODIUM 100 MCG TAB PO SCH (05:45)
[2016-11-28] MEDS: PREGABALIN 25 MG CAP PO SCH ×3 (05:45→21:59)
[2016-11-28] MEDS: RAMIPRIL 2.5 MG CAP PO SCH ×2 (09:00→11:49)
[2016-11-28] MEDS: CLOPIDOGREL 75 MG TAB PO SCH ×2 (09:00→09:19)
[2016-11-28] MEDS: PANTOPRAZOLE SODIUM 40 MG VIAL IV SCH (09:19)
[2016-11-28] MEDS: HEPARIN SODIUM - SQ 10,000 UNITS/ML VIAL SQ SCH ×2 (09:20→21:58)
[2016-11-28] MEDS: SODIUM CHLORIDE 0.9% FLUSH 10 ML FLUSH SCH ×2 (09:31→21:59)
--- NOTE | 2016-11-28 14:23 | HHI.GIFU ---
Subjective Remarks Resting in bed. C/O severe acid reflux. Able to eat without nausea/vomiting/ abdominal pain. But states his reflux is severe and uncomfortable. Objective Vitals I&O Vital Signs Date Time Temp Pulse Resp B/P Pulse Ox O2 Delivery O2 Flow Rate FiO2 11/28/16 12:00 97.0 92 18 136/87 98 11/28/16 08:00 96.9 72 18 121/78 98 11/28/16 05:51 Room Air 11/28/16 04:00 90 11/28/16 04:00 98.0 90 12 155/94 98 11/28/16 02:00 95 11/28/16 00:00 80 11/28/16 00:00 98.1 80 12 139/86 97 11/27/16 22:17 85 11/27/16 22:00 82 11/27/16 20:50 97.9 81 13 164/84 98 11/27/16 20:50 81 11/27/16 20:00 79 11/27/16 19:04 97 21 11/27/16 18:00 72 11/27/16 16:00 75 11/27/16 16:00 98.5 81 12 133/82 100 11/27/16 15:00 83 11 100 11/27/16 14:47 86 16 125/75 99 11/27/16 14:40 97.6 85 15 120/78 96 Nasal Cannula 2 11/27/16 14:30 89 14 121/77 95 Nasal Cannula 2 11/27/16 14:25 98.3 90 12 124/79 99 Nasal Cannula 3 I/O 11/27/16 11/27/16 11/27/16 11/28/16 11/28/16 11/28/16 07:00 15:00 23:00 07:00 15:00 23:00 Intake Total 800 ml 1248 ml 1091 ml 578 ml Output Total 1350 ml 2250 ml 850 ml 800 ml Balance -550 ml -1002 ml 241 ml -222 ml Intake Oral 100 ml 240 ml IV Total 700 ml 1098 ml 851 ml 578 ml Other 150 ml Output Urine Total 1350 ml 2250 ml 850 ml 800 ml # Bowel Movements 0 0 0 0 Laboratory Date/Time Procedure Status Source Growth 11/23/16 16:00 Aerobic Blood Culture - Final Complete Blood Peripheral NO GROWTH IN 5 DAYS 11/23/16 16:00 Anaerobic Blood Culture - Final Complete Blood Peripheral NO GROWTH IN 5 DAYS Imaging Last Impressions Abdomen Ultrasound 11/26/16 0000 Signed Impressions: Service Date/Time: Saturday, November 26, 2016 07:30 - CONCLUSION: 1. Pancreas appears unremarkable. 2. No evidence for cholelithiasis. 3. Small bilateral pleural effusions. Eddy Meneses MD Head CT 11/24/16 0000 Signed Impressions: Service Date/Time: Thursday, November 24, 2016 01:43 - CONCLUSION: Normal examination for a patient of this age. No significant change has occurred. Aubrey Izquierdo MD Chest X-Ray 11/23/16 0000 Signed Impressions: Service Date/Time: November 17:07 - CONCLUSION: No acute cardiopulmonary process to explain current clinical symptoms. Tyler Lopez MD Abdomen/Pelvis CT 11/23/16 0000 Signed Impressions: Service Date/Time: November 20:47 - CONCLUSION: No definite acute CT findings in the abdomen or pelvis. Ramon Mahmood MD Physical Exam HEENT: Normocephalic; atraumatic; no jaundice. CHEST: CTA CARDIAC: RRR ABDOMEN: Soft, nondistended, nontender; no hepatosplenomegaly; bowel sounds are present in all four quadrants. EXTREMITIES: No clubbing, cyanosis, or edema. SKIN: Normal; no rash; no jaundice. PSYCHIATRIC ARNP: No focal deficits; alert and oriented times three. Assessment and Plan Plan ASSESSMENT: - Nausea, Vomiting, Abdominal pain with elevated lipase. He was admitted for DKA and found to have an elevated lipase of 3925. Abdomen/Pelvis CT (11/23/16)----> No definite acute CT findings in the abdomen or pelvis. He denies any history of pancreatitis. He denies any ETOH use or new medications. Triglycerides have been stable from 5690-5746. His insulin gtt has been discontinued. LFTs are normal. His medications were reviewed and he is on three Class III medications for drug induced acute pancreatitis- atorvastatin, hydrochlorothiazide, Lisinopril. Unclear if this is a true pancreatitis, or perhaps elevated lipase from persistent nausea and vomiting related to DKA. S/P EGD (11/27/16)----> 1. Severe grade D esophagitis covering most of the esophagus, small Bx was done 2. Normal endoscopy otherwise 3. Retroflexed views revealed no abnormalities. On Protonix. Still with significant heartburn. Will add carafate. No n/v, abdominal pain at this time. Tolerating diet. - Severe Esophagitis, covering most of esophagus. Pathology pending. Protonix. Still with significant heartburn/reflux. Will add carafate. - Anemia with hx of B12 Deficiency. EGD with severe esophagitis. PPI - GERD/Partida's. PPI. - DKA. Transitioned to sliding scale insulin. IMPROVED. - RENE, Dehydration. IMPROVED - Non-STEMI/Elevated troponin I, Cardiology following, medical management. Plavix per cardiology - Leukocytosis, Lactic acidemia. BCx no growth 5day, FLU (-) A/B. - Hypothyroidism, chronic anemia,hypertension, hyperlipidemia, coronary artery disease, and peripheral neuropathy. Per primary. PLAN: - ALEXANDER diabetic - Await pathology - Cont. Protonix - Add carafate - Monitor HH - Supportive care - Pt seen and examined by Dr. Gilbert and myself and this note is written on his behalf Lisa Vizcaino November 28, 2016 14:23
--- NOTE | 2016-11-28 15:06 | PD.CARD.PN ---
Subjective Subjective Remarks alert in nad Objective Vital Signs / I&O Vital Signs Date Time Temp Pulse Resp B/P Pulse Ox O2 Delivery O2 Flow Rate FiO2 11/28/16 12:00 97.0 92 18 136/87 98 11/28/16 08:00 96.9 72 18 121/78 98 11/28/16 05:51 Room Air 11/28/16 04:00 90 11/28/16 04:00 98.0 90 12 155/94 98 11/28/16 02:00 95 11/28/16 00:00 80 11/28/16 00:00 98.1 80 12 139/86 97 11/27/16 22:17 85 11/27/16 22:00 82 11/27/16 20:50 97.9 81 13 164/84 98 11/27/16 20:50 81 11/27/16 20:00 79 11/27/16 19:04 97 21 11/27/16 18:00 72 11/27/16 16:00 75 11/27/16 16:00 98.5 81 12 133/82 100 I/O 11/27/16 11/27/16 11/27/16 11/28/16 11/28/16 11/28/16 07:00 15:00 23:00 07:00 15:00 23:00 Intake Total 800 ml 1248 ml 1091 ml 578 ml Output Total 1350 ml 2250 ml 850 ml 800 ml Balance -550 ml -1002 ml 241 ml -222 ml Intake Oral 100 ml 240 ml IV Total 700 ml 1098 ml 851 ml 578 ml Other 150 ml Output Urine Total 1350 ml 2250 ml 850 ml 800 ml # Bowel Movements 0 0 0 0 Physical Exam GENERAL: SKIN: Warm and dry. HEAD: Normocephalic. EYES: No scleral icterus. No injection or drainage. NECK: Supple, trachea midline. No JVD or lymphadenopathy. CARDIOVASCULAR: Regular rate and rhythm without murmurs, gallops, or rubs. RESPIRATORY: Breath sounds equal bilaterally. No accessory muscle use. GASTROINTESTINAL: Abdomen soft, non-tender, nondistended. MUSCULOSKELETAL: No cyanosis, or edema. BACK: Nontender without obvious deformity. No CVA tenderness. Assessment and Plan Problem List: (1) CAD (coronary artery disease) (2) Diabetic ketoacidosis (3) Acute kidney insufficiency (4) Anemia due to blood loss, acute Assessment and Plan 1.) CAD - s/p nstemi suspect secondary to combination of hypoxia, anemia and hypotension, continue plavix 75 mg qd, start altace 5 mg qd, start coreg 3.125 mg bid, statin held due to elavted lfts; high risk for noncardiac procedure due to recent nstemi, cad, dm Trino Collazo MD November 28, 2016 15:06
[2016-11-28] MEDS: SUCRALFATE 1 GM/10 ML CUP PO SCH ×2 (16:09→21:58)
[2016-11-28] MEDS: NORTRIPTYLINE HCL 25 MG CAP PO SCH (21:58)
[2016-11-28] MEDS: INSULIN DETEMIR 100 UNITS/ML VIAL SQ SCH (21:58)
--- NOTE | 2016-11-28 23:54 | HHI.PR ---
Subjective Remarks Follow up for DKA, NSTEMI, esophagitis. Mr. Aragon is doing well. No acute concerns. No fever, chills. Tolerating diet well. Objective Vitals Vital Signs Date Time Temp Pulse Resp B/P Pulse Ox O2 Delivery O2 Flow Rate FiO2 11/28/16 20:00 97.8 84 22 128/80 98 11/28/16 18:46 Room Air 11/28/16 16:00 97.0 83 18 162/88 98 11/28/16 12:00 97.0 92 18 136/87 98 11/28/16 12:00 92 11/28/16 08:00 96.9 72 18 121/78 98 11/28/16 08:00 72 11/28/16 05:51 Room Air 11/28/16 04:00 90 11/28/16 04:00 98.0 90 12 155/94 98 11/28/16 02:00 95 11/28/16 00:00 80 11/28/16 00:00 98.1 80 12 139/86 97 I/O 11/27/16 11/27/16 11/27/16 11/28/16 11/28/16 11/28/16 07:00 15:00 23:00 07:00 15:00 23:00 Intake Total 800 ml 1248 ml 1091 ml 578 ml 680 ml 1506 ml Output Total 1350 ml 2250 ml 850 ml 800 ml 1800 ml 300 ml Balance -550 ml -1002 ml 241 ml -222 ml -1120 ml 1206 ml Intake Oral 100 ml 240 ml 680 ml 780 ml IV Total 700 ml 1098 ml 851 ml 578 ml 726 ml Other 150 ml Output Urine Total 1350 ml 2250 ml 850 ml 800 ml 1800 ml 300 ml # Bowel Movements 0 0 0 0 0 0 Result Diagram: 11/27/16 1134 11/27/16 0606 Objective Remarks GENERAL: AOX3, NAD. SKIN: Warm and dry. HEAD: Normocephalic. EYES: No scleral icterus. No injection or drainage. NECK: Supple, trachea midline. No JVD or lymphadenopathy. CARDIOVASCULAR: Regular rate and rhythm without murmurs, gallops, or rubs. RESPIRATORY: Breath sounds equal bilaterally. No accessory muscle use. GASTROINTESTINAL: Abdomen soft, non-tender, nondistended. MUSCULOSKELETAL: No cyanosis, or edema. BACK: Nontender without obvious deformity. No CVA tenderness. Procedures EGD on 11/27/2016. A/P Assessment and Plan Mr. Aragon is a 61 year old male with a history of DM, CAD who presented to the ED on 11/23/2016 due to generalized weakness, high blood glucose, nausea, vomiting, abdominal pain. He was admitted to the ICU due to DKA. Due to significant elevation in Troponins, Cardiology was consulted. Cardiology recommended plavix but no catheterization. Patient underwent EGD on 11/27/2016 which showed Class D esophagitis. - Coronary artery disease with a history of CABG - NSTEMI - Cardiology recommends continuation of Plavix 75mg Qday. - Continue Carvedilol 3.125mg Q12hrs, Ramipril 2.5mg Qday - If okay with Cardiology and GI, Aspirin 81mg Qday should also be added. - Patient's LFTs are within normal or near normal range. No contraindication to use statin. - Will start patient on Lipitor 40mg Qday - Diabetic ketoacidosis - resolved - Diabetes mellitus - Diabetic neuropathy - Continue Levemir 10 units QHS along with sliding scale insulin. - Continue Pregabalin 25mg PO Q8hrs. - Hypothyroidism - Continue Levothyroxine 100 mcg Qday. - Esophagitis - GERD - Continue PPI. - Other - no sign of infection. Patient was on empiric abx. Abx discontinued. Full code. Heparin SQ. Probable discharge on 11/29/2016. Ladan Beavers DO November 28, 2016 23:54
[2016-11-29] VITALS: BP 128/80; PULSE 83; RESP 22; TEMP 97.2; O2SAT 98
[2016-11-29] MEDS: INSULIN NovoLIN REGULAR SUPPLEMENTAL SCALE SQ SCH ×3 (02:00→10:00)
[2016-11-29 04:00] VITALS: BP 155/73; PULSE 84; RESP 18; TEMP 97.7; O2SAT 98
[2016-11-29] MEDS: CHLORHEXIDINE GLUCONATE 2 % 1 PACK (2 CLOTHS) TOP SCH (04:00)
[2016-11-29] MEDS: CARVEDILOL 3.125 MG TAB PO SCH (05:43)
[2016-11-29] MEDS: ACETAMINOPHEN/HYDROcodone 325 MG/10 MG TAB PO SCH ×2 (05:43→11:28)
[2016-11-29] MEDS: LEVOTHYROXINE SODIUM 100 MCG TAB PO SCH (05:44)
[2016-11-29] MEDS: PREGABALIN 25 MG CAP PO SCH (05:44)
[2016-11-29] MEDS: SUCRALFATE 1 GM/10 ML CUP PO SCH ×2 (05:45→11:28)
[2016-11-29 08:15] VITALS: BP 156/88; PULSE 86; RESP 18; TEMP 96.9; O2SAT 98
[2016-11-29] MEDS ORDERED: SUCR1S PO (08:28)
[2016-11-29] MEDS ORDERED: ASPI81TA11 PO (08:28)
[2016-11-29] MEDS ORDERED: HYDR-3366 PO (08:29)
--- NOTE | 2016-11-29 08:35 | HHI.DS ---
Discharge Summary Admission Date November 23, 2016 at 5:59 pm Discharge Date: November 29, 2016 Admitting Diagnosis sepsis, dka (1) NSTEMI (non-ST elevated myocardial infarction) ICD Code: I21.4 Diagnosis: Principal (2) Type 2 diabetes mellitus ICD Code: E11.9 (3) DKA (diabetic ketoacidoses) ICD Code: E13.10 Diagnosis: Principal (4) Hypothyroidism ICD Code: E03.9 Procedures EGD on 11/27/2016. Brief History - From Admission History from patient is somewhat limited due to lethargy. He is oriented but is very slow to answer questions and is not able to provide a lot of details about medical history. 61-year-old with past medical history of insulin-dependent diabetes mellitus, coronary artery disease with prior CABG, peripheral arterial disease status post right AKA. He states that he has a 3 day history of malaise, vomiting, abdominal discomfort. He states his glucose has been running high and he has been trying to administer insulin but has not been able to get his glucose down. He states he vomited three times, nonbloody nonbilious. Denies diarrhea. He presented to [facility] emergency department and was in DKA with VBG with a pH of 7.22/PaCO2 24. Bicarbonate is 11, creatinine 2.51 with BUN of 54. Glucose is 780. Lactic acid 9.8. Lipase is elevated at 1778. WBC 19. CBC/BMP: 11/27/16 1134 11/27/16 0606 Significant Findings Laboratory Tests Test 11/26/16 11/27/16 10:25 06:06 Red Blood Count 3.06 MIL/MM3 (4.50-5.90) Hemoglobin 9.4 GM/DL (13.0-17.0) Hematocrit 27.9 % (39.0-51.0) Platelet Count 110 TH/MM3 126 TH/MM3 (150-450) (150-450) Creatinine 0.55 MG/DL 0.54 MG/DL (0.60-1.30) (0.60-1.30) Random Glucose 165 MG/DL (74-106) Calcium Level 7.3 MG/DL 7.9 MG/DL (8.5-10.1) (8.5-10.1) Phosphorus Level 1.5 MG/DL 2.0 MG/DL (2.5-4.9) (2.5-4.9) Aspartate Amino Transf 41 U/L (15-37) (AST/SGOT) Total Protein 4.7 GM/DL (6.4-8.2) Albumin 2.3 GM/DL (3.4-5.0) Cholesterol Level 104 MG/DL (120-200) HDL Cholesterol 25.0 MG/DL 29.3 MG/DL (40.0-60.0) (40.0-60.0) Lipase 3019 U/L (73-393) Red Cell Distribution Width 17.5 % (11.6-17.2) Sodium Level 135 MEQ/L (136-145) Potassium Level 3.4 MEQ/L (3.5-5.1) Blood Urea Nitrogen 6 MG/DL (7-18) Imaging Last Impressions Abdomen Ultrasound 11/26/16 0000 Signed Impressions: Service Date/Time: Saturday, November 26, 2016 07:30 - CONCLUSION: 1. Pancreas appears unremarkable. 2. No evidence for cholelithiasis. 3. Small bilateral pleural effusions. Eddy Meneses MD Head CT 11/24/16 0000 Signed Impressions: Service Date/Time: Thursday, November 24, 2016 01:43 - CONCLUSION: Normal examination for a patient of this age. No significant change has occurred. Aubrey Izquierod MD Chest X-Ray 11/23/16 0000 Signed Impressions: Service Date/Time: November 17:07 - CONCLUSION: No acute cardiopulmonary process to explain current clinical symptoms. Tyler Lopez MD Abdomen/Pelvis CT 11/23/16 0000 Signed Impressions: Service Date/Time: November 20:47 - CONCLUSION: No definite acute CT findings in the abdomen or pelvis. Ramon Mahmood MD PE at Discharge GENERAL: AOX3, NAD. SKIN: Warm and dry. HEAD: Normocephalic. EYES: No scleral icterus. No injection or drainage. NECK: Supple, trachea midline. No JVD or lymphadenopathy. CARDIOVASCULAR: Regular rate and rhythm without murmurs, gallops, or rubs. RESPIRATORY: Breath sounds equal bilaterally. No accessory muscle use. GASTROINTESTINAL: Abdomen soft, non-tender, nondistended. MUSCULOSKELETAL: No cyanosis, or edema. BACK: Nontender without obvious deformity. No CVA tenderness. Pt update on day of discharge Mr. Aragon is doing well. No acute concerns. Tolerating diet well. No fever, chills. Hospital Course Mr. Aragon is a 61 year old male with a history of DM, CAD who presented to the ED on 11/23/2016 due to generalized weakness, high blood glucose, nausea, vomiting, abdominal pain. He was admitted to the ICU due to DKA. Due to significant elevation in Troponins, Cardiology was consulted. Cardiology recommended plavix but no catheterization. Patient underwent EGD on 11/27/2016 which showed Class D esophagitis. - Coronary artery disease with a history of CABG - NSTEMI - Cardiology recommends continuation of Plavix 75mg Qday. - Continue Carvedilol and Lisinopril on discharge (home dose). - No GI bleed. We will continue Aspirin 81mg Qday. - Patient's LFTs are within normal or near normal range. No contraindication to use statin. - Will re-start patient on Lipitor 40mg Qday - Diabetic ketoacidosis - resolved - Diabetes mellitus - Diabetic neuropathy - Continue Levemir 10 units QHS along with sliding scale insulin. - Continue Pregabalin 25mg PO Q8hrs. - Hypothyroidism - Continue Levothyroxine 100 mcg Qday. - Esophagitis - GERD - Continue PPI. - GI follow up in one week. GI is not sure if it is barbara and thus one week follow up was recommended. I discussed with GI on 11/28/2016. Full code. Pt Condition on Discharge: Good Discharge Disposition: Discharge Home Discharge Time: > 30 minutes Discharge Instructions DIET: Follow Instructions for: Heart Healthy Diet, Diabetic Diet Activities you can perform: Regular-No Restrictions Ladan Beavers DO November 29, 2016 08:35
[2016-11-29] MEDS ORDERED: PANTOPRAZOLE SOD 40 MG DELAYED RELEASE TAB PO SCH (09:00)
[2016-11-29] MEDS: SODIUM CHLORIDE 0.9% FLUSH 10 ML FLUSH SCH (09:00)
[2016-11-29] MEDS: SODIUM CHLOR 0.9% 1000 ML INJ 1,000 ML IV SCH (09:30)
[2016-11-29] MEDS: CLOPIDOGREL 75 MG TAB PO SCH (09:57)
[2016-11-29] MEDS: RAMIPRIL 2.5 MG CAP PO SCH (09:58)
[2016-11-29] MEDS: HEPARIN SODIUM - SQ 10,000 UNITS/ML VIAL SQ SCH (09:58)
[2016-11-29 11:54] VITALS: BP 166/88; PULSE 90; RESP 18; TEMP 97.3; O2SAT 99
--- NOTE | 2016-11-29 12:59 | PD.CARD.PN ---
Subjective Subjective Remarks alert in nad Objective Vital Signs / I&O Vital Signs Date Time Temp Pulse Resp B/P Pulse Ox O2 Delivery O2 Flow Rate FiO2 11/29/16 08:15 96.9 86 18 156/88 98 11/29/16 04:00 97.7 84 18 155/73 98 11/29/16 00:00 97.2 83 22 128/80 98 11/28/16 20:00 97.8 84 22 128/80 98 11/28/16 18:46 Room Air 11/28/16 16:00 97.0 83 18 162/88 98 I/O 11/28/16 11/28/16 11/28/16 11/29/16 11/29/16 11/29/16 07:00 15:00 23:00 07:00 15:00 23:00 Intake Total 578 ml 680 ml 1506 ml 814 ml Output Total 800 ml 1800 ml 300 ml 800 ml Balance -222 ml -1120 ml 1206 ml 14 ml Intake Oral 680 ml 780 ml 240 ml IV Total 578 ml 726 ml 574 ml Output Urine Total 800 ml 1800 ml 300 ml 800 ml # Bowel Movements 0 0 0 0 Physical Exam GENERAL: SKIN: Warm and dry. HEAD: Normocephalic. EYES: No scleral icterus. No injection or drainage. NECK: Supple, trachea midline. No JVD or lymphadenopathy. CARDIOVASCULAR: Regular rate and rhythm without murmurs, gallops, or rubs. RESPIRATORY: Breath sounds equal bilaterally. No accessory muscle use. GASTROINTESTINAL: Abdomen soft, non-tender, nondistended. MUSCULOSKELETAL: No cyanosis, or edema. BACK: Nontender without obvious deformity. No CVA tenderness. Assessment and Plan Problem List: (1) CAD (coronary artery disease) (2) Diabetic ketoacidosis (3) Acute kidney insufficiency (4) Anemia due to blood loss, acute Assessment and Plan 1.) CAD - s/p nstemi suspect secondary to combination of hypoxia, anemia and hypotension, continue plavix 75 mg qd, start altace 5 mg qd, start coreg 3.125 mg bid, lipitor 40 hs; high risk for noncardiac procedure due to recent nstemi, cad, dm Trino Collazo MD November 29, 2016 12:59
[2016-11-29] MEDS ORDERED: ATORVASTATIN 40 MG TAB PO SCH (21:00)
[2016-12-05] MEDS ORDERED: THERM PO (12:12)
[2016-12-05] MEDS ORDERED: OMEP20TA PO (12:12)
[2016-12-05] MEDS ORDERED: ASPI325T PO (12:13)
[2016-12-05] MEDS ORDERED: SUCR1TAB PO (12:36)
[2016-12-06] MEDS ORDERED: LYRI100C PO (11:14)
[2016-12-25] MEDS ORDERED: LEVO.1 PO (13:23)
[2016-12-26] MEDS ORDERED: ATOR40TA16 PO (09:27)
[2016-12-29] MEDS ORDERED: PLAV75TA29 PO (11:58)
[2017-01-05] MEDS ORDERED: LEVEMIR SQ (09:14)
== END 2016-11-29 14:20 | disposition home or self-care (01) | DRG 280 ==
LOC: NEPC 15:16 → NEDA 17:59 → HIMN 21:25 → N06B 11-28 06:52
PROVIDERS: ADMIT Hospitalist; ATTEND Hospitalist
PROC: 30233N1 Transfusion of Nonautologous Red Blood Cells into Peripheral Vein, Percutaneous Approach (ICD-10-PCS; 2016-11-26)
PROC: 0DB58ZX Excision of Esophagus, Via Natural or Artificial Opening Endoscopic, Diagnostic (ICD-10-PCS; principal; 2016-11-27 14:01)
DX: I21.4 Non-ST elevation (NSTEMI) myocardial infarction (principal); E13.10 Other specified diabetes mellitus with ketoacidosis without coma; N17.9 Acute kidney failure, unspecified; E11.40 Type 2 diabetes mellitus with diabetic neuropathy, unspecified; E87.1 Hypo-osmolality and hyponatremia; D69.6 Thrombocytopenia, unspecified; E11.51 Type 2 diabetes mellitus with diabetic peripheral angiopathy without gangrene; E88.09 Other disorders of plasma-protein metabolism, not elsewhere classified; D51.9 Vitamin B12 deficiency anemia, unspecified; I10 Essential (primary) hypertension; I25.10 Atherosclerotic heart disease of native coronary artery without angina pectoris; K21.0 Gastro-esophageal reflux disease with esophagitis; I25.2 Old myocardial infarction; K22.70 Barrett's esophagus without dysplasia; H91.90 Unspecified hearing loss, unspecified ear; E03.9 Hypothyroidism, unspecified; G89.4 Chronic pain syndrome; E86.0 Dehydration; E78.5 Hyperlipidemia, unspecified; M19.90 Unspecified osteoarthritis, unspecified site; F17.210 Nicotine dependence, cigarettes, uncomplicated; F32.9 Major depressive disorder, single episode, unspecified; F41.9 Anxiety disorder, unspecified; Z79.4 Long term (current) use of insulin; Z88.5 Allergy status to narcotic agent; Z89.611 Acquired absence of right leg above knee; Z95.1 Presence of aortocoronary bypass graft
CPT/HCPCS: 36430; 70450; 71010; 74176; 76700; 76937; 80048; 80053; 80061; 80076; 81001; 82010; 82550; 82552; 82805; 82948; 83036; 83605; 83690; 83735; 84100; 84155; 84484; 85014; 85018; 85025; 85027; 85610; 85730; 86850; 86900; 86901; 86920; 87040; 87641; 88305; 88312; 93005; 93306; 96361; 96374; 96375; C9113; J0692; J1644; J1815; J1817; J2405; J2543; J3370; J3480; J7030; J7042; J7050; P9016

== ENCOUNTER → 2017-02-27 | Outpatient (CLI) | payer MEDICAID ==
[~2017-02-27] MED LIST changes: +ASPI-99 PO; +ASPI325T PO; +ASPI81TA11 PO; +ATOR1TAB18 PO; -HYDR12.57 PO; +HYDR25TA5 PO; +INSUINJ3 SQ; +LOVA20TA PO; +LYRI100C PO; +NORT75CA PO; +NOVORP2 SQ; +PRAV20TA2 PO; +PRIL20TA2; +PRIL20TA2 PO; +RANI150T PO; +SUCR1TAB PO
[2017-02-27 10:01] LABS: BICARBONATE 25.4 MEQ/L (21.0-32.0); POTASSIUM 4.3 MEQ/L (3.5-5.1)
== END ==
LOC: CLAB 08:00
PROVIDERS: ATTEND Nurse Practitioner Family
DX: R19.5 Other fecal abnormalities (principal); K46.9 Unspecified abdominal hernia without obstruction or gangrene; E03.9 Hypothyroidism, unspecified
CPT/HCPCS: 36415; 80069; 84443

== ENCOUNTER → 2017-03-16 | Outpatient (CLI) | payer MEDICAID, OTHER ==
--- NOTE | 2017-03-16 14:03 | RADRPT ---
EXAM DATE/TIME: 03/16/2017 13:12 [place] COMPARISON: CT ABDOMEN & PELVIS W/O CONTRAST, November 23, 2016, 20:47. INDICATIONS : Abdominal hernia ORAL CONTRAST: No oral contrast ingested. RADIATION DOSE: 8.07 CTDIvol (mGy) MEDICAL HISTORY : Diabetes mellitus type 2. Hypertension. Cardiovascular diseaseSeizure SURGICAL HISTORY : Appendectomy. Angioplasty ENCOUNTER: Initial ACUITY: 1 day PAIN SCALE: 0/10 LOCATION: abdominal TECHNIQUE: Volumetric scanning of the abdomen and pelvis was performed. Using automated exposure control and ad justment of the mA and/or kV according to patient size, radiation dose was kept as low as reasonably achievable to obtain optimal diagnostic quality images. DICOM format image data is available electro nically for review and comparison. FINDINGS: Moderate emphysematous changes are seen in both lung base. The liver, spleen and pancreas are unremarkable. There is marked thickening of the posterior gastric wall. The adrenal glands are unremarkable There are no stones identified in the kidney. There is no herniation in the abdominal wall Pelvic contents are unremarkable There is no interval hernia with Valsalva. Degenerative changes are seen in the thoracolumbar spine. Extensive vascular calcifications are evident. CONCLUSION: Marked thickening of the posterior gastric wall new from the comparison study.. Extensive vascular calcifications There is no hernia. Luis Fernando Rocha MD FACR on March 16, 2017 at 13:59 Board Certified Radiologist. This report was verified electronically.
== END ==
LOC: HRAD 12:06
PROVIDERS: ATTEND Family Medicine
DX: K46.9 Unspecified abdominal hernia without obstruction or gangrene (principal)
CPT/HCPCS: 74176

== ENCOUNTER → 2017-03-20 | Outpatient (CLI) | payer MEDICAID, OTHER ==
[2017-03-20 12:21] LABS: HEMOGLOBIN A1a 1.5 %; HEMOGLOBIN A1b 1.1 %; HEMOGLOBIN Ao 79.3 %; HEMOGLOBIN F 1.6 %; HEMOGLOBIN LA1C 2.7 %; HEMOGLOBIN P3 4.8 %
== END ==
LOC: CLAB 11:35
PROVIDERS: ATTEND Family Medicine
DX: R19.5 Other fecal abnormalities (principal); E11.59 Type 2 diabetes mellitus with other circulatory complications
CPT/HCPCS: 36415; 82272; 83036

== ENCOUNTER 2017-04-16 19:36 | Inpatient (IN) | payer MEDICAID, OTHER ==
[~2017-04-16] VITALS: Ht 182.9 cm; Wt 65.2 kg
[~2017-04-16 19:36] MED LIST changes: -ASPI-99 PO; -ASPI325T PO; -ATOR1TAB18 PO; -ATOR40TA16 PO; -DOCU1CAP39 PO; -HYDR25TA5 PO; -LYRI100C PO; -NORT50CA PO; -NOVOLOGP2 SQ; -NOVORP2 SQ; -OMEP20TA PO; -PRAV20TA2 PO; -PRIL20TA2; -PRIL20TA2 PO; -SUCR1TAB PO
[2017-04-16 19:38] VITALS: BP 130/57; PULSE 110; RESP 16; TEMP 97.7; O2SAT 98
[2017-04-16] MEDS ORDERED: SODIUM CHLOR 0.9% 1000 ML INJ 1,000 ML IV ONE (22:00)
[2017-04-16] MEDS ORDERED: ONDANSETRON HCL 4 MG/2 ML VIAL IV ONE (22:00)
[2017-04-16] MEDS ORDERED: ASPI325T PO (22:01)
[2017-04-16] MEDS ORDERED: PRIL20TA2 (22:01)
--- NOTE | 2017-04-16 22:02 | PD ---
HPI Chief Complaint: Abdominal Pain Time Seen by Provider: 21:45 Travel History International Travel<30 days: No Contact w/Intl Traveler<30days: No Traveled to known affect area: No History of Present Illness HPI The patient is a 61 year old male who presents to the [facility] emergency department with a history of reportedly having difficult to control blood sugar over the last 3 days. He reports that since the onset he's had midepigastric abdominal pain and nausea and vomiting. He reports that he had vomiting anytime he eats. He had vomiting 1-2 times over the last 24 hours. The patient reports having intermittent chest pain as well since he was last admitted to the hospital. He reports that he has a history of having coronary artery bypass grafting. He reports that he cannot recall when he last had a stress test done, however it was greater than a year ago at least. 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 He is followed by the outpatient community clinic for his primary care. The patient reports that he was on Levemir and NovoLog, however he has been having difficulty affording his insulin. He was switched from Novolin R. According to the community clinic note they were not aware that he was unable to afford his Levemir. He did switch over to the regular insulin and Lasix administered this at 4 PM. He reports that he administered 30 units. On review of systems, the patient denies any recent known fevers, cough, congestion, neck pain, diarrhea, dysuria or urinary frequency, however the patient reports that he has had decreased urinary frequency. He denies having any focal neurologic symptoms. [facility] Past Medical History Narrative Medical Hyperlipidemia, acid reflux, diabetes mellitus, coronary artery disease, hypertension, diabetic neuropathy abdominal hernia, chronic pain, acid reflux. Hx Anticoagulant Therapy: Yes Arthritis: Yes Asthma: No Autoimmune Disease: No Blood Disorders: No Anxiety: Yes Depression: Yes Heart Rhythm Problems: No Cancer: No Cardiovascular Problems: Yes High Cholesterol: Yes Chemotherapy: No Chest Pain: No Congestive Heart Failure: No COPD: No Cerebrovascular Accident: No Coronary Artery Disease: Yes Diabetes: Yes Patient Takes Glucophage: No Diminished Hearing: Yes Endocrine: Yes Gastrointestinal Disorders: Yes (ESOPHAGEAL ULCER?stricture, stretch 1 1/2 yr ago) GERD: Yes Glaucoma: No Genitourinary: No Headaches: No Hepatitis: No Hiatal Hernia: No Hypertension: Yes Immune Disorder: No Implanted Vascular Access Dvce: Yes Kidney Stones: No Musculoskeletal: Yes (cervical and lumbar spine pt states he has bulging disc R AKA) Neurologic: Yes (NEUROPATHY pvd) Psychiatric: No Reproductive: No Respiratory: No Immunizations Current: No Migraines: No Myocardial Infarction: Yes Radiation Therapy: No Renal Failure: No Seizures: Yes (PER PT SECONDARY TO HYPOGLYCEMIA) Sickle Cell Disease: No Sleep Apnea: No Thyroid Disease: Yes Ulcer: No PNEUMOCCOCAL Vaccine (Year): 2 Past Surgical History Narrative Surgical The patient's past surgical history is significant for coronary artery bypass grafting in 2004 of four vessels, right leg amputation above the knee. Abdominal Surgery: Yes (EXP. LEFT BRACHIAL PLEXIS,APPEND., COLECTOMY) AICD: No Appendectomy: Yes Arteriovenous Shunt: No Body Medical Devices: Right leg amputaion wears prosthesis Cardiac Surgery: Yes (CABGX4) Cholecystectomy: No Coronary Artery Bypass Graft: Yes (2004) Ear Surgery: No Endocrine Surgery: No Eye Surgery: No Genitourinary Surgery: No Gynecologic Surgery: No Insulin Pump: No Joint Replacement: No Neurologic Surgery: No Oral Surgery: No Pacemaker: No Thoracic Surgery: Yes (L5, S1, fusions) Tonsillectomy: Yes Other Surgery: Yes (2 HYDROCELE) Social History Alcohol Use: No Tobacco Use: No (reports quit 12/15/15) Substance Use: No Allergies-Medications (Allergen,Severity, Reaction): Coded Allergies: morphine (Verified Adverse Reaction, Severe, STS HE BECOMES VIOLENT., 04/17) Uncoded Allergies: UNFRACTIONATED HEPARIN (Adverse Reaction, Severe, PT UNSURE OF REACTION, ) patient states he's not allergic, " I just bleed easily", explained to patient drug's purpose. Reported Meds & Prescriptions Reported Meds & Active Scripts Active Novolin R Relion (Insulin Regular (Human)) 100 Unit/Ml Inj 2-10 Units SQ TID Max dose at bedtime:( )units; sugars less than 150,(0) units; sugars 150-199,(2)unit; sugars 200-249,(4)units; sugars 250-299,(6) units; sugars 300-349,(8)units; sugars equal to or greater than 350,(10)units Norvasc (Amlodipine Besylate) 5 Mg Tab 5 Mg PO DAILY Lovastatin 20 Mg Tab 20 Mg PO DAILY Meloxicam 7.5 Mg Tab 7.5 Mg PO DAILY Nortriptyline (Nortriptyline HCl) 75 Mg Cap 75 Mg PO HS Levemir Inj (Insulin Detemir) 1,000 unit/ 10 ML Vial 12 Units SQ AC BREAKFAST 10 units in AM 12 units in the PM Do not mix with any other Insulin. Plavix (Clopidogrel Bisulfate) 75 Mg Tab 75 Mg PO DAILY Synthroid (Levothyroxine Sodium) 100 Mcg Tab 100 Mcg PO DAILY@06 [place] (Hydrocodone-Acetaminophen) 10-325 Mg Tab 1 Tab PO Q6HR Carvedilol 6.25 Mg Tab 6.25 Mg PO BID Lisinopril 10 Mg Tab 10 Mg PO Q12HR Reported Prilosec (Omeprazole Magnesium) 20 Mg Tab Unknown Dose Aspirin 325 Mg Tab 325 Mg PO DAILY B12 (Cyanocobalamin) 1,000 Mcg Tab 1,000 Mcg PO DAILY Lyrica (Pregabalin) 75 Mg Cap 75 Mg PO TID Review of Systems Except as stated in HPI: all other systems reviewed are Neg General / Constitutional: No: Fever Eyes: No: Visual changes HENT: No: Headaches, Congestion Cardiovascular: Positive: Chest Pain or Discomfort Respiratory: Positive: Shortness of Breath, No: Cough Gastrointestinal: Positive: Nausea, Vomiting, Abdominal Pain Genitourinary: Positive: Decreased Urinary Output, No: Frequency, Dysuria Musculoskeletal: No: Pain Skin: No Rash Neurologic: Positive: Weakness (generalized weakness), No: Focal Abnormalities , Change in Mentation, Slurred Speech, Sensory Disturbance Psychiatric: No: Depression Endocrine: No: Polydipsia Hematologic/Lymphatic: No: Easy Bruising Physical Exam Narrative General: The patient is a well-developed cachectic appearing male in no acute distress. Head and Neck exam: Head is normocephalic atraumatic. Eyes: EOMI, pupils are equal round and reactive to light. Nose: Midline septum with pink mucous membranes Mouth: Dentition unremarkable. Moist mucus membranes. Posterior oropharynx is not erythematous. No tonsillar hypertrophy. Uvula midline. Airway patent. Neck: No palpable lymphadenopathy. No nuchal rigidity. No thyromegaly. Cardiovascular: Sinus tachycardia in the low 100 without murmurs, gallops, or rubs. No pulse deficit to the extremities and simultaneous auscultation and palpation of his radial artery. Lungs: Clear to auscultation bilaterally. No wheezes, rhonchi, or rales. The patient appears slightly tachypneic. Abdomen: Soft, with midepigastric abdominal tenderness on palpation, no other tenderness on palpation of the other quadrants of the abdomen. No guarding, rebound, or rigidity. Normal bowel sounds are audible. No tenderness on palpation of McBurney's point. Negative Antoine's sign Extremities: No clubbing, cyanosis, or edema. The patient has a right mlmry-cwh-rdaw amputation with a prosthetic leg. Back: No costovertebral angle tenderness to palpation. Neurologic Exam: Grossly nonfocal. Skin Exam: No rash noted. Intact skin that is warm and dry. Data Data Last Documented VS Vital Signs Date Time Temp Pulse Resp B/P (MAP) Pulse Ox O2 Delivery O2 Flow Rate FiO2 04/16/17 22:47 96 Room Air 04/16/17 19:38 97.7 110 16 Orders Orders Complete Blood Count With Diff (04/16/17 20:33) Urinalysis - C+S If Indicated (04/16/17 20:33) Electrocardiogram (04/16/17 21:59) Creatine Kinase (Cpk) (04/16/17 21:59) Ckmb (Isoenzyme) Profile (04/16/17 21:59) Troponin I (04/16/17 21:59) B-Type Natriuretic Peptide (04/16/17 21:59) Prothrombin Time / Inr (Pt) (04/16/17 21:59) Act Partial Throm Time (Ptt) (04/16/17 21:59) Magnesium (Mg) (04/16/17 21:59) Blood Gas Venous Ph (04/16/17 21:59) Beta Hydroxybutyrate (Acetone) (04/16/17 21:59) Chest, Single Ap (04/16/17 21:59) Iv Access Insert/Monitor (04/16/17 21:59) Ecg Monitoring (04/16/17 21:59) Oximetry (04/16/17 21:59) Sodium Chlor 0.9% 1000 Ml Inj (Ns 1000 M (04/16/17 22:00) Ondansetron Inj (Zofran Inj) (04/16/17 22:00) Diet Npo (04/17/17 Breakfast) Sodium Chlor 0.9% 1000 Ml Inj (Ns 1000 M (04/16/17 22:52) Dext 5%-Nacl 0.9% 1000 Ml Inj (D5w-Ns 10 (04/16/17 22:52) Insulin Human Regular Inj (Novolin R Inj (04/16/17 23:00) Potassium Chlor 40 Meq Premix (Kcl 40 Me (04/16/17 23:00) Potassium Chlor 40 Meq Premix (Kcl 40 Me (04/16/17 23:00) Potassium Chlor 20 Meq Premix (Kcl 20 Me (04/16/17 23:00) Potassium Chlor 20 Meq Premix (Kcl 20 Me (04/16/17 23:00) Potassium Chlor 20 Meq Premix (Kcl 20 Me (04/16/17 23:00) Potassium Chlor 20 Meq Premix (Kcl 20 Me (04/16/17 23:00) Potassium Chlor 20 Meq Premix (Kcl 20 Me (04/16/17 23:00) Potassium Chlor 20 Meq Premix (Kcl 20 Me (04/16/17 23:00) Sodium Bicarbonate 8.4% Inj (Sodium Bica (04/16/17 23:00) Sodium Bicarbonate 8.4% Inj (Sodium Bica (04/16/17 23:00) Sodium Phosphate Inj (Sodium Phosphate I (04/16/17 23:00) Hemoglobin (Hgb) A1c (04/16/17 22:52) Admit Order (Ed Use Only) (04/17/17 00:46) Comprehensive Metabolic Panel (04/16/17 22:42) Lipase (04/16/17 22:42) Labs Laboratory Tests Test 04/16/17 22:28 04/16/17 22:42 Venous Blood pH 7.20 Prothrombin Time 9.6 SEC Prothromb Time International Ratio 0.9 RATIO Activated Partial Thromboplast Time 25.3 SEC Blood Urea Nitrogen 33 MG/DL Creatinine 1.57 MG/DL Random Glucose 633 MG/DL Total Protein 6.0 GM/DL Albumin 2.8 GM/DL Calcium Level 7.8 MG/DL Magnesium Level 2.2 MG/DL Alkaline Phosphatase 198 U/L Aspartate Amino Transf (AST/SGOT) 24 U/L Alanine Aminotransferase (ALT/SGPT) 35 U/L Total Bilirubin 0.6 MG/DL Sodium Level 128 MEQ/L Potassium Level 5.6 MEQ/L Chloride Level 94 MEQ/L Carbon Dioxide Level 9.3 MEQ/L Anion Gap 25 MEQ/L Estimat Glomerular Filtration Rate 45 ML/MIN Total Creatine Kinase 49 U/L Troponin I 0.03 NG/ML B-Type Natriuretic Peptide 60 PG/ML Lipase 121 U/L B-Hydroxybutyrate 9.91 MMOL/L MDM Medical Decision Making Medical Screen Exam Complete: Yes Emergency Medical Condition: Yes Medical Record Reviewed: Yes Interpretation(s) Last Impressions Chest CT 04/17/17 0000 Signed Impressions: Service Date/Time: Monday, April 17, 2017 01:29 - CONCLUSION: 1. Scattered subcentimeter nodules and mild infectious/inflammatory appearing infiltrate of both lungs seen in the setting of mild emphysema and mild bronchiectasis. No large or dense consolidation. No cavitary changes. 6 month followup noncontrast chest CT is recommended. 2. Previous cabbage. Normal heart size. 3. No adenopathy. 4. Old fractures of the left scapula and several left ribs. Ramon Gale MD Chest X-Ray 04/16/172158 Signed Impressions: Service Date/Time: Sunday, April 16, 2017 22:01 - CONCLUSION: Questionable 1.6 cm focal lucency. A cavitary lesion cannot be excluded. A noncontrast CT examination of the chest could be performed for further evaluation. Ramon Arreguin MD Differential Diagnosis DKA, versus dehydration, versus lactic acidosis, versus pneumonia, versus acute coronary syndrome, versus hyperosmolar hyperglycemia Narrative Course During the course of the patients emergency department visit, the patients history, examination, and differential diagnosis were reviewed with the patient. The patient had IV access obtained and blood work sent for analysis. The patient was placed on a photolithographer with oximetry and blood pressure monitoring. An EKG was done on arrival. The patient's EKG shows a sinus rhythm heart rate of 99, left bundle branch block is noted, no other acute abnormality is noted. QRS duration is 165 ms, QTC 479 ms. from reviewing the patient's electronic medical record, the patient's ECG appears to show a new left bundle-branch block. The patient does report having intermittent chest pain since his last hospital admission. The patient denies having any chest pain currently. The patient was initially provided normal saline 1 L IV fluid bolus, Zofran 4 mg IV. The patient's blood sugar was noted to be reportedly 507, critically high on Accu-Chek in the emergency department. A VBG was ordered. The patient' s pH was noted to be 7.2, highly suspicious for DKA. The patient was started on regular insulin IV 4 mg. The patient was continued on normal saline IV fluids. Regarding the patient's left bundle branch block, the patient's initial set of cardiac enzymes are normal. The patient was given aspirin 324 mg by mouth 1. The patient is given nitroglycerin 1 inch the chest wall. The patient will be ruled out with serial cardiac enzymes. The patients laboratory studies were reviewed and remarkable for a white count of 11.6, hemoglobin 9.2, platelets 209 with neutrophils 90.9. Initial blood sugar in the lab was 633. Unfortunately, there was difficulty obtaining the patient's initial chemistries as the patient's chemistries were repeatedly re- collected due to problems in the lab. CMP resulted as a sodium of 128, potassium 5.6, bicarbonate 9.3, anion gap 25, BUN 33, creatinine 1.57, alkaline phosphatase 198, total protein 6.0, albumin 2.8, BNP is 60, lipase 121. Beta hydroxybutyrate is 9.91, PT 9.6, PTT 25.3 Radiology studies were reviewed and remarkable for a chest x-ray that shows a questionable 1.6 focal lucency, a cavitary lesion cannot be excluded, noncontrast chest CT is recommended for further evaluation. The patients results were discussed with the patient, including the plan of care. I explained that further testing and/ or monitoring is indicated based on the patients history, examination, and/ or laboratory findings. Therefore, I recommended admission for additional evaluation. The patient expressed understanding and was agreeable with this plan. The patient was admitted to the hospital in guarded condition and sent to a bed under the care of the [facility]. Critical Care Narrative Aggregate critical care time was 35 minutes. Time to perform other separately billable procedures was not included in the critical care time. My time did not include minutes spent treating any other patients simultaneously or on activities that did not directly contribute to the patient's treatment. The services I provided to this patient were to treat and/or prevent clinically significant deterioration that could result in: Pulmonary edema related to fluid resuscitation, versus intracerebral edema related to rapid lowering of glucose, versus progressive acidosis due to DKA I provided critical care services requiring my management, as noted below: Chart data review, documentation time, medication orders and management, vital sign assessments/reviewing monitor data, ordering and reviewing lab tests, ordering and interpreting/reviewing x-rays and diagnostic studies, care of the patient and discussion of the patient with the admitting physicians. Sepsis Criteria SIRS Criteria (2 or more): Heart rate over 90 Physician Communication Physician Communication The patient's case is discussed with Dr. Monge who did agree to admit the patient for further evaluation and treatment at this time. Diagnosis Primary Impression: DKA (diabetic ketoacidoses) Qualified Codes: E08.10 - Diabetes mellitus due to underlying condition with ketoacidosis without coma Admitting Information Admitting Physician Requests: Admit Kamini Anderson MD Apr 16, 2017 22:02
--- NOTE | 2017-04-16 22:45 | RADRPT ---
EXAM DATE/TIME: 04/16/2017 22:01 [facility] COMPARISON: CHEST PA & LAT, October 17, 2016, 16:09. CHEST SINGLE AP, November 23, 2016, 17:07. INDICATIONS : Chest pain MEDICAL HISTORY : Diabetes mellitus type 2. Hypertension. Cardiovascular diseaseSeizure SURGICAL HISTORY : CABG. Appendectomy. Angioplasty ENCOUNTER: Initial ACUITY: 1 day PAIN SCORE: 5/10 LOCATION: chest FINDINGS: The patient is status post sternotomy. The heart size is normal. The lungs are free of focal consolid ation. There is a questionable 1.6 cm area of focal lucency in the left mid-lung. A cavitary lesion c ould have this appearance. CONCLUSION: Questionable 1.6 cm focal lucency. A cavitary lesion cannot be excluded. A noncontrast CT examination of the chest could be performed for further evaluation. Ramon Arreguin MD on April 16, 2017 at 22:41 Board Certified Radiologist. This report was verified electronically.
[2017-04-16 22:47] VITALS: O2SAT 96
[2017-04-16] MEDS: DEXT 5%-NACL 0.9% 1000 ML INJ 1,000 ML IV SCH (22:52)
[2017-04-16] MEDS ORDERED: SODIUM BICARBONATE 8.4% SOLN 50 MEQ/50 ML VIAL IV PUSH PRN ×2 (23:00)
[2017-04-16] MEDS ORDERED: POTASSIUM CHLOR 20 MEQ PREMIX 100 ML IV PRN ×6 (23:00)
[2017-04-16] MEDS ORDERED: SODIUM PHOSPHATE INJ 15 MMOL in SODIUM CHLORIDE 0.9% INJ 100 ML IV PRN (23:00)
[2017-04-16] MEDS ORDERED: SODIUM CHLORIDE 0.9% IV PRN (23:00)
[2017-04-16] MEDS ORDERED: INSULIN HUMAN REGULAR 1,000 UNITS/10 ML VIAL IV PUSH ONE (23:00)
[2017-04-16] MEDS ORDERED: POTASSIUM CHLOR 40 MEQ PREMIX 100 ML IV PRN ×2 (23:00)
[2017-04-16] MEDS ORDERED: INSULIN REG IV PRN (23:00)
[2017-04-16 23:09] LABS: APTT (PATIENT) 25.3 SEC (24.3-30.1); INTERNATIONAL NORMALIZED RATIO 0.9 RATIO; PROTHROMBIN TIME - PATIENT 9.6 SEC (9.8-11.6)
[2017-04-16 23:19] LABS: MAGNESIUM 2.2 MG/DL (1.5-2.5)
[2017-04-16 23:29] LABS: BETA-HYDROXYBUTYRATE 9.91 MMOL/L (0.00-0.39)
[2017-04-16 23:38] LABS: CREATINE KINASE 49 U/L (39-308)
[2017-04-17] VITALS (13 sets, daily range): BP systolic 100–114; BP diastolic 54–64; PULSE 78–100; RESP 12–20; TEMP 97.1–98; O2SAT 96–100
[2017-04-17] MEDS ORDERED: SODIUM CHLORIDE 0.9% IV PRN (00:45)
[2017-04-17] MEDS ORDERED: INSULIN REG IV PRN (00:45)
[2017-04-17] MEDS: SODIUM CHLOR 0.9% 1000 ML INJ 1,000 ML IV SCH ×5 (00:59→13:39)
[2017-04-17] MEDS ORDERED: INSULIN REGULAR 100 UNITS/NS 100 ML (DKA Protocol) IV SCH ×2 (01:15)
[2017-04-17] MEDS ORDERED: SODIUM CHLOR 0.9% 1000 ML INJ 1,000 ML IV SCH (01:17)
[2017-04-17 01:25] LABS: AUTOMATED NEUTROPHIL # 10.5 TH/MM3 (1.8-7.7); BASOPHIL % 0.3 % (0.0-2.0); EOSINOPHIL % 0.2 % (0.0-4.0); HEMATOCRIT 31.1 % (39.0-51.0); LYMPH % 6.6 % (9.0-44.0); LYMPHOCYTE # 0.8 TH/MM3 (1.0-4.8); MEAN CELL VOLUME 106.1 FL (80.0-100.0); MEAN CORPUSCULAR HEMOGLOBIN 31.4 PG (27.0-34.0); NEUT % 90.9 % (16.0-70.0); PLATELET COUNT 209 TH/MM3 (150-450); RED BLOOD COUNT 2.94 MIL/MM3 (4.50-5.90); RED CELL DISTRIBUTION WIDTH 16.2 % (11.6-17.2); WHITE BLOOD COUNT 11.6 TH/MM3 (4.0-11.0)
[2017-04-17 01:27] LABS: MEAN CORPUSCULAR HGB CONC 29.6 % (32.0-36.0)
[2017-04-17 01:27] LABS: ANION GAP 25 MEQ/L (5-15)
[2017-04-17 01:28] LABS: HEMO FLAGS AUTO DIFF
[2017-04-17] MEDS ORDERED: SODIUM CHLOR 0.9% 1000 ML INJ 1,000 ML IV ONE (01:30)
[2017-04-17] MEDS ORDERED: SODIUM CHLORIDE 0.9% FLUSH 10 ML FLUSH IV FLUSH PRN (01:30)
[2017-04-17] MEDS ORDERED: NALOXONE HCL 0.4 MG/ML AMP IV PUSH PRN (01:30)
[2017-04-17 01:48] LABS: ALKALINE PHOSPHATASE 198 U/L (45-117); ALT (GPT) 35 U/L (12-78); AST (GOT) 24 U/L (15-37); BICARBONATE 9.3 MEQ/L (21.0-32.0); BLOOD UREA NITROGEN 33 MG/DL (7-18); CHLORIDE 94 MEQ/L (98-107); GLOMERULAR FILTRATION RATE 45 ML/MIN (>89); POTASSIUM 5.6 MEQ/L (3.5-5.1); SODIUM (NA) 128 MEQ/L (136-145); TOTAL BILIRUBIN ADULT 0.6 MG/DL (0.2-1.0)
[2017-04-17 01:52] LABS: PLATELET ESTIMATE SMEAR NORMAL (NORMAL); PLATELET MORPHOLOGY NORMAL (NORMAL); SCAN/DIFF AUTO DIFF CONFIRMED
--- NOTE | 2017-04-17 02:01 | RADRPT ---
EXAM DATE/TIME: 04/17/2017 01:29 [facility] COMPARISON: No previous studies available for comparison. INDICATIONS : Intermittent chest pain. Abnormal chest x-ray, rule out cavitary lesion. RADIATION DOSE: 3.46 CTDIvol (mGy) MEDICAL HISTORY : Cardiovascular disease. Myocardial infarction. Gastroesophageal reflux disease. Hypertension. Coronar y artery disease. Diabetes. SURGICAL HISTORY : CABG Appendectomy.Cholecystectomy. ENCOUNTER: Initial ACUITY: 3 days PAIN SCALE: 3/10 LOCATION: chest TECHNIQUE: Volumetric scanning of the chest was performed. Using automated exposure control and adjustment of t he mA and/or kV according to patient size, radiation dose was kept as low as reasonably achievable to obtain optimal diagnostic quality images. DICOM format image data is available electronically for r eview and comparison. Follow-up recommendations for detected pulmonary nodules are based at a minimum on nodule size and pa tient risk factors according to Fleischner Society Guidelines. FINDINGS: Very mild patchy bronchiectasis seen of both lungs. There is an approximately 4.6 cm area of mild inf ectious or inflammatory appearing infiltrate in the right middle lobe, series 3 image 27. A similar a katalina measuring about 1.7 cm in size is seen in the lingular division of the left upper lobe, series 3 image 34. 9 mm nodular area, probably scarring, as seen in the right lung apex. There is a similar ar ea measuring about 5 mm at the left lung apex. There is mild right greater than left apical pleural t hickening and scarring. Very mild emphysema is noted. No large, dense or confluent consolidation seen. No cavitary changes are demonstrated. No pleura l effusion or pneumothorax. Normal heart size. Patient has had previous median sternotomy and CABG. No pericardial effusion. No pathologic appearing lymphadenopathy seen. No acute bony abnormality demonstrated. There are old, healed fractures of several left ribs and left scapula. CONCLUSION: 1. Scattered subcentimeter nodules and mild infectious/inflammatory appearing infiltrate of both lung s seen in the setting of mild emphysema and mild bronchiectasis. No large or dense consolidation. No cavitary changes. 6 month followup noncontrast chest CT is recommended. 2. Previous cabbage. Normal heart size. 3. No adenopathy. 4. Old fractures of the left scapula and several left ribs. Ramon Gale MD on April 17, 2017 at 1:55 Board Certified Radiologist. This report was verified electronically.
[2017-04-17] MEDS: DEXT 5%-NACL 0.9% 1000 ML INJ 1,000 ML IV SCH ×4 (03:52→18:59)
[2017-04-17] MEDS ORDERED: ASPIRIN 81 MG CHEW TAB CHEW ONE (04:30)
[2017-04-17] MEDS ORDERED: NITROGLYCERIN 2% OINT 1 GM PACKET TOPICAL ONE (04:30)
--- NOTE | 2017-04-17 05:36 | HHI.HP ---
[facility] Physician Ro Vogel MD Admission Diagnosis DKA Diagnoses: Travel History International Travel<30 Days: No Contact w/Intl Traveler <30 Da: No Traveled to Known Affected Are: No History of Present Illness History from patient, ER physician communication, and review of medical records. Patient reported that he was not able to get his levemir prescription and has not taken that in years since the last time he saw his PCP. He states that he was instead prescribed Novolin R as needed at home and his blood sugars were not going down no matter what he does. They were always in the 400s. He also reports of abdominal pain, mid epigastric, with some associated nausea and vomiting. Denies fever. Denies any blood in his stool or in his urine. Denies any urinary burning or pain on urination. Denies any recent infections. However when asked about sores, patient reported he had a small sores in his buttock which he has been taking care of it himself. In the emergency room, patient's workup revealed elevated blood sugars with VBG pH of 7.2 and beta hydroxybutyrate in the 9. His chemistry was initially pending. He was given insulin IV push for control of his blood sugar while awaiting on chemistry. Review of Systems Except as stated in HPI: all other systems reviewed are Neg Past Family Social History Past Medical History Hypertension Diabetes CADstatus post CABG in 2004 Hyperlipidemia COPD Neuropathy PADstatus post right AKA secondary to arterial occlusion Past Surgical History CABG Right AKA Appendectomy Colectomy EGDs and colonoscopies Reported Medications Patient's medications listed on EMRreviewed. Patient goes to the [place] primary care clinic here. Allergies: Coded Allergies: morphine (Verified Adverse Reaction, Severe, STS HE BECOMES VIOLENT., 04/17) Uncoded Allergies: UNFRACTIONATED HEPARIN (Adverse Reaction, Severe, PT UNSURE OF REACTION, ) patient states he's not allergic, " I just bleed easily", explained to patient drug's purpose. Social History Used to smoke cigarettes, quit about 1-1/2 years ago. Denies any alcohol abuse or drug abuse currently. Used to drink until 2004. Physical Exam Vital Signs Vital Signs Date Time Temp Pulse Resp B/P (MAP) Pulse Ox O2 Delivery O2 Flow Rate FiO2 04/17/17 04:38 04/17/17 04:30 96 04/17/17 04:30 97.7 96 17 112/60 (77) 96 04/17/17 03:43 100 18 100/58 (72) 100 Room Air 04/17/17 01:02 100 20 100/54 (69) 100 Room Air 04/16/17 22:47 96 Room Air 04/16/17 19:38 97.7 110 16 130/57 (81) 98 Room Air Physical Exam GENERAL: This is a well-nourished, well-developed patient, in no apparent distress. SKIN: Very small dried skin ulceration at the left buttock cheek. HEAD: Atraumatic. Normocephalic. No temporal or scalp tenderness. EYES: \\No scleral icterus. No injection or drainage. ENT: Nose without bleeding, purulent drainage or septal hematoma\\. Airway patent. NECK: Trachea midline. No JVD Supple, nontender, no meningeal signs. CARDIOVASCULAR: Regular rate and rhythm without murmurs, gallops, or rubs. RESPIRATORY: Clear to auscultation. Breath sounds equal bilaterally. No wheezes , rales, or rhonchi. GASTROINTESTINAL: Abdomen soft, non-tender, nondistended. No guarding. MUSCULOSKELETAL: Extremities without clubbing, cyanosis, or edema. No calf tenderness. NEUROLOGICAL: Awake and alert.Motor and sensory grossly within normal limits. Normal speech Laboratory Laboratory Tests Test 04/16/17 22:28 04/16/17 22:42 04/17/17 01:09 04/17/17 01:16 Venous Blood pH 7.20 Prothrombin Time 9.6 Prothromb Time International Ratio 0.9 Activated Partial Thromboplast Time 25.3 Blood Urea Nitrogen 33 Creatinine 1.57 Random Glucose 633 662 Total Protein 6.0 Albumin 2.8 Calcium Level 7.8 Magnesium Level 2.2 Alkaline Phosphatase 198 Aspartate Amino Transf (AST/SGOT) 24 Alanine Aminotransferase (ALT/SGPT) 35 Total Bilirubin 0.6 Sodium Level 128 Potassium Level 5.6 Chloride Level 94 Carbon Dioxide Level 9.3 Anion Gap 25 Estimat Glomerular Filtration Rate 45 Total Creatine Kinase 49 Troponin I 0.03 B-Type Natriuretic Peptide 60 Lipase 121 B-Hydroxybutyrate 9.91 White Blood Count 11.6 Red Blood Count 2.94 Hemoglobin 9.2 Hematocrit 31.1 Mean Corpuscular Volume 106.1 Mean Corpuscular Hemoglobin 31.4 Mean Corpuscular Hemoglobin Concent 29.6 Red Cell Distribution Width 16.2 Platelet Count 209 Mean Platelet Volume 8.7 Neutrophils (%) (Auto) 90.9 Lymphocytes (%) (Auto) 6.6 Monocytes (%) (Auto) 2.0 Eosinophils (%) (Auto) 0.2 Basophils (%) (Auto) 0.3 Neutrophils # (Auto) 10.5 Lymphocytes # (Auto) 0.8 Monocytes # (Auto) 0.2 Eosinophils # (Auto) 0.0 Basophils # (Auto) 0.0 CBC Comment AUTO DIFF Differential Comment AUTO DIFF CONFIRMED Platelet Estimate NORMAL Platelet Morphology Comment NORMAL Red Cell Morphology Comment NORMAL Test 04/17/17 05:00 Result Diagram: 04/17/17 0116 04/17/17 0109 Imaging Last [address] 04/17/17 0000 Signed Impressions: Service Date/Time: Monday, April 17, 2017 01:29 - CONCLUSION: 1. Scattered subcentimeter nodules and mild infectious/inflammatory appearing infiltrate of both lungs seen in the setting of mild emphysema and mild bronchiectasis. No large or dense consolidation. No cavitary changes. 6 month followup noncontrast chest CT is recommended. 2. Previous cabbage. Normal heart size. 3. No adenopathy. 4. Old fractures of the left scapula and several left ribs. Ramon Gale MD Chest X-Ray 04/16/17 2159 Signed Impressions: Service Date/Time: Sunday, April 16, 2017 22:01 - CONCLUSION: Questionable 1.6 cm focal lucency. A cavitary lesion cannot be excluded. A noncontrast CT examination of the chest could be performed for further evaluation. MD Ankita Honeycutt VTE Risk Assessment Capcarriei VTE Risk Assessment: Mod/High Risk (score >= 2) Caprini Risk Assessment Model Point Value = 1 Point Value = 2 Point Value = 3 Point Value = 5 Age 41-60 Minor surgery BMI > 25 kg/m2 Swollen legs Varicose veins or History of unexplained or recurrent spontaneous Oral contraceptives or hormone replacement Sepsis (< 1 month) Serious lung disease, including pneumonia (< 1 month) Abnormal pulmonary function Acute myocardial infarction Congestive heart failure (< 1 month) History of inflammatory bowel disease Medical patient at bed rest Age 61-74 Arthroscopic surgery Major open surgery (> 45 min) Laparoscopic surgery (> 45 min) Malignancy Confined to bed (> 72 hours) Immobilizing plaster cast Central venous access Age >= 75 History of VTE Family history of VTE Factor V Leiden Prothrombin [id number] Lupus anticoagulant Anticardiolipin antibodies Elevated serum homocysteine Heparin-induced thrombocytopenia Other congenital or acquired thrombophilia Stroke (< 1 month) Elective arthroplasty Hip, pelvis, or leg fracture Acute spinal cord injury (< 1 month) Prophylaxis Regimen Total Risk Factor Score Risk Level Prophylaxis Regimen 0-1 Low Early ambulation 2 Moderate Order ONE of the following: *Sequential Compression Device (SCD) *Heparin 5000 units SQ BID 3-4 Higher Order ONE of the following medications: *Heparin 5000 units SQ TID *Enoxaparin/Lovenox 40 mg SQ daily (WT < 150 kg, CrCl > 30 mL/min) *Enoxaparin/Lovenox 30 mg SQ daily (WT < 150 kg, CrCl > 10-29 mL/min) *Enoxaparin/Lovenox 30 mg SQ BID (WT < 150 kg, CrCl > 30 mL/min) AND/OR *Sequential Compression Device (SCD) 5 or more Highest Order ONE of the following medications: *Heparin 5000 units SQ TID (Preferred with Epidurals) *Enoxaparin/Lovenox 40 mg SQ daily (WT < 150 kg, CrCl > 30 mL/min) *Enoxaparin/Lovenox 30 mg SQ daily (WT < 150 kg, CrCl > 10-29 mL/min) *Enoxaparin/Lovenox 30 mg SQ BID (WT < 150 kg, CrCl > 30 mL/min) AND *Sequential Compression Device (SCD) Assessment and Plan Assessment and Plan Impression: DKA Anion gap Metabolic acidosis Pseudohyponatremia Hyperkalemia Acute renal failure secondary to dehydration/hyperglycemia Leukocytosis with left shift Hypertension Diabetes CADstatus post CABG in 2004 Hyperlipidemia COPD Neuropathy PADstatus post right AKA secondary to arterial occlusion Plan: Start insulin drip per DKA protocol once his BMP was resulted and showing anion gap metabolic acidosis. We'll adjust drip based on the anion Gap. Every 6 hours labs. His DKA is most likely secondary to medications noncompliance due to insurance issues. However since patient is a poor protoplasm and is also complaining of sacral decubiti, would consult wound care to formally evaluate the decubiti. It was mostly just very small dried out ulceration at this point. We'll follow-up CBC after hydration. At present, no antibiotics yet. Resume his home meds. DVT prophylaxis with heparin Discussed Condition With patient, ER MD, nursing staff Physician Certification 2 Midnight Certification Type: Admission for Inpatient Services Order for Inpatient Services The services are ordered in accordance with Medicare regulations or non- Medicare payer requirements, as applicable. In the case of services not specified as inpatient-only, they are appropriately provided as inpatient services in accordance with the 2-midnight benchmark. Estimated LOS (days): 2 days is the estimated time the patient will need to remain in the hospital, assuming treatment plan goals are met and no additional complications. Post-Hospital Plan: Home Ignacio Monge MD Apr 17, 2017 05:36
[2017-04-17 06:56] LABS: BICARBONATE 10.3 MEQ/L (21.0-32.0); POTASSIUM 5.4 MEQ/L (3.5-5.1)
[2017-04-17] MEDS ORDERED: HEPARIN-D5W 25,000 U/250 ML 250 ML IV PRN (08:00)
[2017-04-17] MEDS ORDERED: HEPARIN SODIUM - IV 10,000 UNITS/10 ML VIAL IV PUSH ONE ×2 (08:00→14:00)
[2017-04-17] MEDS ORDERED: NITROGLYCERIN 0.4 MG SL 25 TABS/BTL SL PRN (08:15)
[2017-04-17] MEDS: PREGABALIN 75 MG CAP PO SCH ×3 (09:00→18:58)
[2017-04-17] MEDS: LISINOPRIL 10 MG TAB PO SCH ×2 (09:00→21:58)
[2017-04-17] MEDS: amLODIPine BESYLATE 5 MG TAB PO SCH (09:00)
[2017-04-17] MEDS ORDERED: ASPIRIN 325 MG TAB PO SCH (09:00)
[2017-04-17] MEDS: CYANOCOBALAMIN 1,000 MCG TAB PO SCH (09:17)
[2017-04-17] MEDS: ASPIRIN EC 81 MG TABEC PO SCH (09:17)
[2017-04-17] MEDS: CARVEDILOL 6.25 MG TAB PO SCH ×2 (09:17→21:57)
[2017-04-17] MEDS: CLOPIDOGREL 75 MG TAB PO SCH (09:18)
[2017-04-17 09:19] LABS: BASOPHIL % 0.4 % (0.0-2.0); EOSINOPHIL % 0.1 % (0.0-4.0); HEMATOCRIT 30.4 % (39.0-51.0); HEMO FLAGS DIFF FINAL; LYMPH % 21.6 % (9.0-44.0); LYMPHOCYTE # 2.1 TH/MM3 (1.0-4.8); MEAN CELL VOLUME 98.3 FL (80.0-100.0); MEAN CORPUSCULAR HGB CONC 31.6 % (32.0-36.0); MONO % 6.9 % (0.0-8.0); PLATELET COUNT 201 TH/MM3 (150-450); RED BLOOD COUNT 3.09 MIL/MM3 (4.50-5.90); RED CELL DISTRIBUTION WIDTH 14.9 % (11.6-17.2); WHITE BLOOD COUNT 9.8 TH/MM3 (4.0-11.0)
--- NOTE | 2017-04-17 09:25 | HHI.PR ---
Subjective Remarks f/u; DKA/ possible ND in no acute distress. has some chest pain and sob last night which has resolved. blood sugar trend noted. d/w the RN. Objective Vitals Vital Signs Date Time Temp Pulse Resp B/P (MAP) Pulse Ox O2 Delivery O2 Flow Rate FiO2 04/17/17 06:00 100 04/17/17 04:38 04/17/17 04:30 96 04/17/17 04:30 97.7 96 17 112/60 (77) 96 04/17/17 03:43 100 18 100/58 (72) 100 Room Air 04/17/17 01:02 100 20 100/54 (69) 100 Room Air 04/16/17 22:47 96 Room Air 04/16/17 19:38 97.7 110 16 130/57 (81) 98 Room Air I/O 04/16/17 04/16/17 04/16/17 04/17/17 04/17/17 04/17/17 07:00 15:00 23:00 07:00 15:00 23:00 Intake Total 2000 ml Output Total 400 ml Balance 1600 ml Intake IV Total 2000 ml Output Urine Total 400 ml # Voids 1 Result Diagram: 04/17/17 0116 04/17/17 0602 Imaging Last Impressions Chest CT 04/17/17 0000 Signed Impressions: Service Date/Time: Monday, April 17, 2017 01:29 - CONCLUSION: 1. Scattered subcentimeter nodules and mild infectious/inflammatory appearing infiltrate of both lungs seen in the setting of mild emphysema and mild bronchiectasis. No large or dense consolidation. No cavitary changes. 6 month followup noncontrast chest CT is recommended. 2. Previous cabbage. Normal heart size. 3. No adenopathy. 4. Old fractures of the left scapula and several left ribs. Ramon Gale MD Chest X-Ray 04/16/17 [id number] Signed Impressions: Service Date/Time: Sunday, April 16, 2017 22:01 - CONCLUSION: Questionable 1.6 cm focal lucency. A cavitary lesion cannot be excluded. A noncontrast CT examination of the chest could be performed for further evaluation. Ramon Arreguin MD A/P Assessment and Plan A/P - DKA continue with insulin drip- monitor the electrolytes closely-A1c pending -ACS with history of CAD- s/p CABG started on heparin drip- trend the cardiac enzymes- continue aspirin, plavix and coreg- cardiology consulted -acute kidney injury/ hyperkalemia continue with IV fluid and insulin- monitor I/O and renal function/ electrolytes closely -hyponatremia- due to hyperglycemia- has improved -COPD with no exacerbation- neb treatment as needed -DVT prophylaxis; on heparin drip d/w the Debra Shin MD Apr 17, 2017 09:25
[2017-04-17] MEDS: SODIUM CHLORIDE 0.9% FLUSH 10 ML FLUSH IV FLUSH SCH ×2 (09:56→21:00)
[2017-04-17] MEDS ORDERED: HEPARIN SODIUM - IV 10,000 UNITS/10 ML VIAL IV PUSH PRN ×2 (10:15→14:00)
--- NOTE | 2017-04-17 15:59 | PD.WCN.NOT ---
Wound Consult Description: Received consult for sacral pressure ulcer from Doctor Saleem. Communicated with: PARKER Conley ISC Recommendation: Please cleanse buttock area with soap and water and apply skin prep to intact skin on buttock area before applying Adhesive foam dressing as preventative and change as needed Additional Information: Patient seen on [facility] earlier around 11am for the evaluation of pressure injury to sacrum. Patient assessed with the assistance of Leida BREWSTER, Doctor Bragg, Yael CANALES IS[facility] and financial underwriter. Patient positioned to R side with moderate assistance. Pulled down patient's shorts and underwear to reveal intact skin with non blanchable erythema measuring ~6cm x ~6cm, indicating stage 1 pressure injury.Small scab noted to L inner gluteal fold. Applied skin prep to erythematous buttock area before applying adhesive foam dressing over sacral area for prevention of skin loss and further injury.RN to position patient off bottom with pillow in place for support. Christine Malcolm [facility] Apr 17, 2017 15:58
[2017-04-17 16:16] LABS: HEMOGLOBIN A1a 1.6 %; HEMOGLOBIN A1b 1.4 %; HEMOGLOBIN Ao 75.9 %; HEMOGLOBIN F 1.7 %; HEMOGLOBIN LA1C 4.8 %; HEMOGLOBIN P3 7.3 %
[2017-04-17 16:41] LABS: POTASSIUM 4.4 MEQ/L (3.5-5.1)
--- NOTE | 2017-04-17 16:55 | EKG ---
Date Performed: 04/17/2017 Time Performed: 11:02:06 PTAGE: 61 years EKG: Sinus rhythm NONSPECIFIC T-WAVE ABNORMALITY Compared to previous tracing, the Left bundle branch block has resolv ed BORDERLINE ECG PREVIOUS TRACING : 04/16/2017 22.01 DOCTOR: Hansa Mejia Interpretating Date/Time 04/17/2017 16:54:00
--- NOTE | 2017-04-17 16:55 | EKG ---
Date Performed: 04/16/2017 Time Performed: 22:01:36 PTAGE: 61 years EKG: Sinus rhythm LEFT BUNDLE BRANCH BLOCK Compared to previous tracing, the patient now has a Left bundle branch bloc k ABNORMAL ECG PREVIOUS TRACING : 11/24/2016 02.06 DOCTOR: Hansa Mejia Interpretating Date/Time 04/17/2017 16:53:46
[2017-04-17 17:07] LABS: APTT (PATIENT) 33.1 SEC (24.3-30.1)
[2017-04-17 17:16] LABS: CALCIUM-PROTEIN CORRECTED 7.8 MG/DL (8.5-10.1)
--- NOTE | 2017-04-17 17:17 | MB ---
cc: ANUPAM WINSLOW DO DATE OF CONSULTATION 04/17/2017 REASON FOR CONSULTATION Non-ST elevation myocardial infarction. HISTORY OF THE PRESENT ILLNESS Ezio Aragon is a pleasant 61-year-old male who presented to [facility] Emergency Room on April 17, 2017 due to difficulty controlling his blood sugars over the left 3 days. He says since his blood sugars have been uncontrolled he has had some mid epigastric abdominal pain, nausea and vomiting. He states that he has been vomiting any time he eats. He has also had intermittent chest pains since his last admission to the hospital. He is followed by an outpatient community clinic for his primary care and reports that he was on Levemir and NovoLog, however, he has had difficulty affording his insulin. In seeing him he is currently on a heparin drip and insulin drip stable in the ICU. PAST MEDICAL HISTORY 1. Hypertension 2. Diabetes. 3. Coronary artery disease. 4. Hyperlipidemia. 5. COPD. 6. Neuropathy. 7. Peripheral arterial disease. PAST SURGICAL HISTORY 1. Coronary artery bypass grafting (August 30, 2016) OCONNELL to LAD, SVG to OM, SVG to PDA, SVG to PLV. 2. Right AKA (August 18, 2015). 3. Appendectomy. 4. Colectomy. 5. EGD / colonoscopies. ALLERGIES 1. MORPHINE. 2. HEPARIN. THE PATIENT STATES THAT HE IS NOT ALLERGIC JUST BLEEDS EASILY. MEDICATIONS 1. Plavix 75 mg daily. 2. Lovastatin 20 mg daily. 3. Coreg 6.25 mg b.i.d. 4. Norvasc 5 mg daily 5. Lisinopril 10 mg every 12 hours. 6. Aspirin 325 mg daily. 7. Meloxicam 7.5 mg daily. 8. Emmons 10 / 325 every 6 hours as needed for pain management. 9. Lyrica 75 mg t.i.d. 10. Nortriptyline 75 mg every night. 11. Prilosec 20 mg daily 12. Levemir 10 units in the morning and 12 units at night. 13. Novolin R sliding scale. 14. Synthroid 100 mcg daily. FAMILY HISTORY Denies premature coronary artery disease or sudden cardiac within the family. SOCIAL HISTORY The patient used to smoke cigarettes daily. He quit around a year and half ago. Denies alcohol or drug abuse. REVIEW OF SYSTEMS 14-systems were reviewed including osteopathic, pertinent positives and negatives as above otherwise negative. PHYSICAL EXAMINATION VITAL SIGNS: Temperature 97.1, heart rate 86, blood pressure 114/64, respirations 12, 100% on 3 liters. GENERAL: In general the patient appears well in no acute distress, alert awake and oriented x3. HEENT: Extraocular muscles intact. Mucous membranes moist. NECK: Supple. No JVD at 45 degrees. No carotid bruits heard bilaterally. Carotid upstroke is brisk in nature. CARDIOVASCULAR: Heart is regular rate and rhythm. Positive first and second heart sounds with no noted murmurs, gallops or rubs. LUNGS: Clear to auscultation bilaterally. No wheezes, rales or rhonchi. ABDOMEN: Soft, nontender, nondistended. No organomegaly noted. EXTREMITIES: Show no clubbing, cyanosis or edema. Right [id number] amputation with prosthetic leg noted. NEUROLOGIC: No focal deficits. SKIN: Warm, dry and intact. OSTEOPATHIC: No kyphoscoliosis, lordosis or paraspinal tender points. LABORATORY FINDINGS Hemoglobin 9.6, hematocrit 30.4, platelets 201. Potassium 5.4, BUN 32, creatinine 1.51. Troponin 3.12. Electrocardiogram (April 17, 2017 at 11:02) sinus rhythm, nonspecific ST-T wave changes. IMPRESSION 1. Non-ST elevation myocardial infarction most likely type 1 versus type 2. 2. DKA currently on insulin drip. 3. History of coronary artery disease with a history of CABG as above. 4. Acute kidney injury / hyperkalemia. 5. COPD. 6. Peripheral vascular disease with a right AKA. 7. Uncontrolled diabetes mellitus. 8. Hyperlipidemia. RECOMMENDATIONS 1. Mr. Aragon is currently stable and will continue on a heparin drip. His allergy to heparin appears to be easy bleeding which is partially what the medication should do, so it is more of an intolerance if anything. 2. We will continue him on his aspirin and Plavix therapy. 3. We will check an echo to look at his overall left ventricular function, cardiac structure and possible valvopathies. 4. He will be left n.p.o. after midnight with a plan for possible cardiac catheterization in the morning depending on his metabolic panel. 5. DKA per the primary. 6. Further recommendations based on the hospital course. Thank you for allowing me to see Ezio Aragon. If there are any questions please do not hesitate to call. Anupam Winslow DO VGP/KK /3:20 PM /4:46 PM
[2017-04-17] MEDS: NORTRIPTYLINE HCL 25 MG CAP PO SCH (21:57)
[2017-04-18] VITALS (14 sets, daily range): BP systolic 83–165; BP diastolic 52–81; PULSE 72–93; RESP 14–22; TEMP 97.4–98.7; O2SAT 99–100
[2017-04-18] MEDS: DEXT 5%-NACL 0.9% 1000 ML INJ 1,000 ML IV SCH ×3 (00:07→09:52)
[2017-04-18 00:47] LABS: APTT (PATIENT) 33.2 SEC (24.3-30.1)
[2017-04-18 00:57] LABS: BETA-HYDROXYBUTYRATE 1.58 MMOL/L (0.00-0.39); HDL CHOLESTEROL 21.6 MG/DL (40.0-60.0)
[2017-04-18 01:29] LABS: CALCIUM-PROTEIN CORRECTED 7.7 MG/DL (8.5-10.1)
[2017-04-18] MEDS: LEVOTHYROXINE SODIUM 100 MCG TAB PO SCH (05:09)
[2017-04-18 05:49] LABS: AUTOMATED NEUTROPHIL # 4.5 TH/MM3 (1.8-7.7); BASOPHIL % 0.7 % (0.0-2.0); EOSINOPHIL # 0.2 TH/MM3 (0-0.4); EOSINOPHIL % 2.5 % (0.0-4.0); HEMATOCRIT 27.2 % (39.0-51.0); HEMO FLAGS DIFF FINAL; LYMPH % 24.1 % (9.0-44.0); LYMPHOCYTE # 1.6 TH/MM3 (1.0-4.8); MEAN CELL VOLUME 95.6 FL (80.0-100.0); MEAN CORPUSCULAR HEMOGLOBIN 32.2 PG (27.0-34.0); MEAN CORPUSCULAR HGB CONC 33.7 % (32.0-36.0); NEUT % 67.7 % (16.0-70.0); PLATELET COUNT 122 TH/MM3 (150-450); RED BLOOD COUNT 2.84 MIL/MM3 (4.50-5.90); RED CELL DISTRIBUTION WIDTH 14.8 % (11.6-17.2); WHITE BLOOD COUNT 6.7 TH/MM3 (4.0-11.0)
[2017-04-18 05:57] LABS: APTT (PATIENT) 112.5 SEC (24.3-30.1)
[2017-04-18 07:51] LABS: APTT (PATIENT) 77.6 SEC (24.3-30.1)
[2017-04-18] MEDS: amLODIPine BESYLATE 5 MG TAB PO SCH (09:00)
[2017-04-18] MEDS: CYANOCOBALAMIN 1,000 MCG TAB PO SCH (09:00)
[2017-04-18] MEDS: SODIUM CHLORIDE 0.9% FLUSH 10 ML FLUSH IV FLUSH SCH ×2 (09:00→22:37)
[2017-04-18] MEDS: ASPIRIN EC 81 MG TABEC PO SCH (09:00)
[2017-04-18] MEDS: CARVEDILOL 6.25 MG TAB PO SCH ×2 (09:00→22:37)
[2017-04-18] MEDS: LISINOPRIL 10 MG TAB PO SCH ×2 (09:00→22:37)
[2017-04-18] MEDS: PREGABALIN 75 MG CAP PO SCH ×3 (09:00→18:44)
[2017-04-18] MEDS: CLOPIDOGREL 75 MG TAB PO SCH (09:00)
[2017-04-18] MEDS ORDERED: PNEUMOCOCCAL POLYVALENT INJ 25 MCG/0.5 ML SYR IM ONE (10:00)
--- NOTE | 2017-04-18 10:02 | HHI.PR ---
Subjective Remarks looks somewhat better today. more alert. denies chest pain. Objective Vitals Vital Signs Date Time Temp Pulse Resp B/P (MAP) Pulse Ox O2 Delivery O2 Flow Rate FiO2 04/18/17 09:12 99 21 04/18/17 06:00 75 04/18/17 04:00 98.6 72 15 83/52 (62) 100 04/18/17 04:00 75 04/18/17 02:00 75 04/18/17 00:00 78 04/18/17 00:00 98.6 78 14 110/62 (78) 100 04/17/17 22:00 86 04/17/17 20:01 100 Nasal Cannula 2.00 04/17/17 20:00 97.7 78 14 109/62 (78) 100 04/17/17 20:00 78 04/17/17 19:00 100 Nasal Cannula 3.00 04/17/17 18:00 82 04/17/17 16:00 78 04/17/17 16:00 98.0 78 14 109/60 (76) 100 04/17/17 14:00 84 04/17/17 12:00 82 04/17/17 12:00 97.3 82 13 109/60 (76) 100 04/17/17 10:00 86 I/O 04/17/17 04/17/17 04/17/17 04/18/17 04/18/17 04/18/17 07:00 15:00 23:00 07:00 15:00 23:00 Intake Total 2000 ml 1240 ml 784 ml Output Total 400 ml 500 ml 600 ml Balance 1600 ml 740 ml 184 ml Intake Oral 240 ml 30 ml IV Total 2000 ml 1000 ml 754 ml Output Urine Total 400 ml 500 ml 600 ml # Voids 1 1 Result Diagram: 04/18/17 0507 04/17/17 2347 Imaging Last Impressions Chest CT 04/17/17 0000 Signed Impressions: Service Date/Time: Monday, April 17, 2017 01:29 - CONCLUSION: 1. Scattered subcentimeter nodules and mild infectious/inflammatory appearing infiltrate of both lungs seen in the setting of mild emphysema and mild bronchiectasis. No large or dense consolidation. No cavitary changes. 6 month followup noncontrast chest CT is recommended. 2. Previous cabbage. Normal heart size. 3. No adenopathy. 4. Old fractures of the left scapula and several left ribs. Ramon Gale MD Chest X-Ray 04/16/172158 Signed Impressions: Service Date/Time: Sunday, April 16, 2017 22:01 - CONCLUSION: Questionable 1.6 cm focal lucency. A cavitary lesion cannot be excluded. A noncontrast CT examination of the chest could be performed for further evaluation. Ramon Arreguin MD Objective Remarks GENERAL: in no apparent distress. CARDIOVASCULAR: Regular rate and regular rhythm without murmurs, gallops, or rubs. RESPIRATORY: Clear to auscultation. Breath sounds equal bilaterally. No wheezes , rales, or rhonchi. GASTROINTESTINAL: Abdomen soft, non-tender, nondistended. Normal, active bowel sounds MUSCULOSKELETAL: Extremities without clubbing, cyanosis, or edema. NEURO: Alert & Oriented x4 to person, place, time, situation. Moves all ext x4 Medications and IVs Current Medications Sodium Chloride 1,000 ml @ 1,000 mls/hr Q1H ONCE IV Last administered on 22:45; Start 04/16/17 at 22:00; Stop 04/16/17 at 22:59; Status DC Ondansetron HCl (Zofran Inj) 4 mg ONCE ONCE IV Last administered on 04/16/17 22:46; Start 04/16/17 at 22:00; Stop 04/16/17 at 22:02; Status DC Sodium Chloride 1,000 ml @ 250 mls/hr Q4H IV Last administered on 04/17/17 07 :06; Start 04/16/17 at 22:52; Stop 04/17/17 at 13:50; Status DC Dextrose/Sodium Chloride 1,000 ml @ 200 mls/hr Q5H IV Last administered on 05:08; Start 04/16/17 at 22:52 Insulin Human Regular (NovoLIN R INJ) 4 units BOLUS ONCE IV PUSH Last administered on 04/17/17 00:57; Start 04/16/17 at 23:00; Stop 04/16/17 at 23:01 ; Status DC Insulin Human Regular 100 units/ Sodium Chloride 100 ml @ 0 mls/hr TITRATE PRN IV Blood Sugar Management; Start 04/16/17 at 23:00; Status UNV Potassium Chloride 100 ml @ 100 mls/hr Q1H PRN IV SEE LABEL COMMENTS; Start 04/16/17 at 23:00 Potassium Chloride 100 ml @ 50 mls/hr Q2H PRN IV SEE LABEL COMMENTS; Start at 23:00 Potassium Chloride 100 ml @ 100 mls/hr Q1H PRN IV SEE LABEL COMMENTS; Start 04/16/17 at 23:00 Potassium Chloride 100 ml @ 100 mls/hr Q1H PRN IV SEE LABEL COMMENTS; Start 04/16/17 at 23:00 Potassium Chloride 100 ml @ 50 mls/hr Q2H PRN IV SEE LABEL COMMENTS; Start at 23:00 Potassium Chloride 100 ml @ 50 mls/hr Q2H PRN IV SEE LABEL COMMENTS; Start at 23:00 Potassium Chloride 100 ml @ 50 mls/hr Q2H PRN IV SEE LABEL COMMENTS; Start at 23:00 Potassium Chloride 100 ml @ 50 mls/hr Q2H PRN IV SEE LABEL COMMENTS; Start at 23:00 Sodium Bicarbonate (Sodium Bicarbonate 8.4% Inj) 100 meq UNSCH PRN IV PUSH SEE LABEL COMMENTS; Start 04/16/17 at 23:00 Sodium Bicarbonate (Sodium Bicarbonate 8.4% Inj) 50 meq UNSCH PRN IV PUSH SEE LABEL COMMENTS; Start 04/16/17 at 23:00 Sodium Phosphate 15 mmol/Sodium Chloride 105 ml @ 25 mls/hr UNSCH PRN IV SEE LABEL COMMENTS; Start 04/16/17 at 23:00 Insulin Human Regular 100 units/ Sodium Chloride 100 ml @ 0 mls/hr TITRATE PRN IV Blood Sugar Management; Start 04/17/17 at 00:45; Status UNV Insulin Human Regular 100 units/ Sodium Chloride 100 ml @ 8.25 mls/hr TITRATE IV Last administered on 04/17/17t 02:32; Start 04/17/17 at 01:15 Sodium Chloride 1,000 ml @ 100 mls/hr Q10H IV ; Start 04/17/17 at 01:17; Stop 04/17/17 at 01:20; Status DC Sodium Chloride (NS Flush) 2 ml UNSCH PRN IV FLUSH FLUSH AFTER USING IV ACCESS ; Start 04/17/17 at 01:30 Sodium Chloride (NS Flush) 2 ml BID IV FLUSH Last administered on 04/17/17 09: 56; Start 04/17/17 at 09:00 Naloxone HCl (Narcan Inj) 0.4 mg UNSCH PRN IV PUSH SEE LABEL COMMENTS; Start 04/17/17 at 01:30 Sodium Chloride 1,000 ml @ 999 mls/hr BOLUS ONCE IV Last administered on 04/17 01:51; Start 04/17/17 at 01:30; Stop 04/17/17 at 02:30; Status DC Aspirin (Aspirin Chew) 324 mg ONCE ONCE CHEW ; Start 04/17/17 at 04:30; Stop 04/17/17 at 04:33; Status DC Nitroglycerin (Nitroglycerin 2% Oint) 1 inch ONCE ONCE TOPICAL ; Start at 04:30; Stop 04/17/17 at 04:33; Status DC Pneumococcal Polyvalent Vaccine (Pneumovax-23 Inj) 25 mcg ONCE ONCE IM ; Start 04/18/17 at 10:00; Stop 04/18/17 at 10:01 Amlodipine Besylate (Norvasc) 5 mg DAILY PO ; Start 04/17/17 at 09:00 Aspirin (Aspirin) 325 mg DAILY PO ; Start 04/17/17 at 09:00; Stop 04/17/17 at 09 :00; Status DC Carvedilol (Coreg) 6.25 mg BID PO Last administered on 04/17/17 21:57; Start 04/17/17 at 09:00 Clopidogrel Bisulfate (Plavix) 75 mg DAILY PO Last administered on 04/17/17 09 :18; Start 04/17/17 at 09:00 Levothyroxine Sodium (Synthroid) 100 mcg DAILY@06 PO Last administered on 05:09; Start 04/18/17 at 06:00 Lisinopril (Prinivil) 10 mg Q12HR PO Last administered on 04/17/17 21:58; Start 04/17/17 at 09:00 Nortriptyline HCl (Pamelor) 75 mg HS PO Last administered on 04/17/17 21:57; Start 04/17/17 at 21:00 Pregabalin (Lyrica) 75 mg TID PO Last administered on 04/17/17 18:58; Start 04/17/17 at 09:00 Cyanocobalamin (Vitamin B12) 1,000 mcg DAILY PO Last administered on 04/17/17 09:17; Start 04/17/17 at 09:00 Heparin Sodium (Porcine) (Heparin Inj) 7,000 units ONCE ONCE IV PUSH ; Start 04/17/17 at 08:00; Stop 04/17/17 at 08:20; Status DC Heparin Sodium (Porcine) (Heparin Inj) 3,600 units NOW ONCE IV PUSH Last administered on 04/17/17 13:37; Start 04/17/17 at 14:00; Stop 04/17/17 at 14:01 ; Status DC Heparin Sodium (Porcine) (Heparin Inj) 2,500 units UNSCH PRN IV PUSH APTT 25 TO 39 Last administered on 04/18/17 01:28; Start 04/17/17 at 14:00 Heparin Sodium/ Dextrose 250 ml @ 7.2 mls/hr TITRATE PRN IV Coagulation management Last administered on 04/17/17 11:15; Start 04/17/17 at 08:00 Aspirin (Ecotrin Ec) 81 mg DAILY PO Last administered on 04/17/17 09:17; Start 04/17/17 at 09:00 Nitroglycerin (Nitrostat Sl) 0.4 mg Q5M PRN SL CHEST PAIN; Start 04/17/17 at 08 :15 Heparin Sodium (Porcine) (Heparin Inj) 5,000 units UNSCH PRN IV PUSH APTT<25 - APTT LESS THAN 25; Start 04/17/17 at 10:15 A/P Assessment and Plan A/P - DKA continue with insulin drip- monitor the electrolytes closely-A1c 8.9 repeat BMP today and will switch to subq insulin soon. -ACS with history of CAD- s/p CABG started on heparin drip- continue aspirin, plavix and coreg- cardiology consult appreciated and for possible cardiac cath. -acute kidney injury/ hyperkalemia- improved continue with IV fluid and insulin- monitor I/O and renal function/ electrolytes closely -hyponatremia- due to hyperglycemia- has improved -COPD with no exacerbation- neb treatment as needed -DVT prophylaxis; on heparin drip possible transfer to [facility] soon- when taken off the insulin drip. Debra Tinsley MD Apr 18, 2017 10:02
[2017-04-18] MEDS ORDERED: SODIUM CHLORID 0.9% 500 ML INJ 500 ML ONE (11:48)
[2017-04-18] MEDS ORDERED: HEPARIN-NS/PF INJ 1,000 ML ONE (11:48)
[2017-04-18] MEDS ORDERED: MIDAZOLAM HCL 2 MG/2 ML VIAL ONE (11:48)
[2017-04-18] MEDS ORDERED: MISC INFORMATION XX ONE (12:45)
--- NOTE | 2017-04-18 12:56 | CATHPROC ---
[facility] HIS Report Study Information Study Number Admission Scheduled Start Study Start [id number] Apr 17 2017 12:47AM 04/17/2017 Apr 18 2017 11:04AM [place] Service Cardiac Catheterization Admit Source Facility Department Emergency department [facility] - Complaint Investigations Officer Physician and Clinical Staff Initial Anupam Wyman Hairspring Cutter Syl Gillis,PARKER Hairspring Cutter Ivonne Xie RN Recorder Cecilia Olivas,MICA MACHINE OPERATOR TECH2 Scrub Darya Flood,SNAKER TECH2 Procedures Performed Procedure Location (Site) Vessel Name Coronary Angiograms LCA Left Coronary Coronary Angiograms RCA Right Coronary Coronary Angiograms OCONNELL-LAD Left Coronary Coronary Angiograms SVG-OM 1 CIRC Coronary Angiograms SVG-PDA Right Coronary L Heart Cath Wire insertion Fem Art (right) Femoral Art Equipment Time Intelligence Operations Specialist Description Size Mfg Part Number Used/Scraped TRANSDUCER, TRUWAVE [id number] 11:07 [employer] VIRGEN * Used W/NIKOLE *[id number]- INTRODUCER SET, 12:03 [employer]. FR 5 SC-NT-U-SST Used MICROPUNCTURE, STIFFENED *[id number] *[id number] 534-520T *[id number] 11:07 [employer] INDUSTRIES PACK, CCL CUSTOM * Used *[id number] 11:52 MEDTRONIC JR 4.0 DXTERITY CATHETER FR 5 [id number] Used 11:07 [employer] MEDICAL SHEATH, FR5.5 PRELUDE 11CM FR 5 [id number] Used [id number] 11:07 [employer] MEDICAL WIRE, 3MMJ .035 180CM 180CM Used *[id number] 11:07 NAMIC MANIFOLD, 4 PORT * Used *[id number] 11:07 NYCOMED OMNIPAQUE, 350 MG, 150ML 150ML [id number] Used [id number] 11:07 [employer] MEDICAL BLANKET,WARM AIR CCL * Used *[id number] Equipment Model, Serial, Lot Number and Expiration Data Description Model Number Serial Number Lot Number Expiration Date JR 4.0 DXTERITY CATHETER [id number] 01-10-2020 History: Current Medications Medication Dosage/Unit Route Frequency Last Date/Time Taken ASA PLAVIX CARVEDILOL Statins (any) LISINOPRIL LYRICA Prilosec Synthroid Insulin History: Allergies Allergy Reaction morphine STS HE BECOMES VIOLENT. UNFRACTIONATED HEPARIN PT UNSURE OF REACTION History: Risk Factors Family History of Hypertension Dyslipidemia Previous [place] Previous Heart Failure Premature CAD Yes Yes No Yes No Prior Valve Prior PCI Prior CABG Prior CABGDate Surgery No No Yes 08/30/2004 Cerebrovascular Peripheral Artery Chronic Lung On Dialysis Diabetes Diabetes Therapy Disease Disease Disease No No Yes Yes Yes Insulin History: Other Current Smoker Method Quit Packs a Day Years Used Pack Years No Cigarettes 1 Years Ago 1 30 30 Labs Hgb (g/dl) Hct (%) RBC (MIL/MM3) WBC (l/cumm) Platelets (thousands) 11.60-17.00 35.00-51.00 4.00-5.90 4.00-11.00 150.00-450.00 9.1 27.2 2.8 6.7 122 Glucose (mg/dl) BUN (mg/dl) Creatinine (mg/dl) BUN:Creatinine (1:x) 74.00-106.00 7.00-18.00 0.50-1.30 10.00-20.00 251 17 1.0 17 Na (meq/l) K (meq/l) Cl (meq/l) CO2 (mmol/L) Ca (mg/dl) 136.00-145.00 3.50-5.10 98.00-107.00 21.00-32.00 8.50-10.10 140 4 113 17 6.4 Troponin I (ng/ml) CPK (u/l) 0.02-0.05 26.00-308.00 4.24 94 Medication Medication Total Dose (Bolus/Oral) Medication Total Dosage/Unit 1% XYLOCAINE 20 mL FENTANYL 75 mcg VERSED 0.5 mg Medications (Bolus/Oral) Medication Time Given Dosage/Unit Administered By Reason VERSED 04/18/2017 11:55:50 AM 0.5 mg Syl Gillis 0.5 mg VERSED given in lab by Syl Gillis RN in Right Antecubital via Peripheral IV. Ordered by Anupam Sebastian. 1% XYLOCAINE 04/18/2017 11:56:34 AM 20 mL Anupam Richter 20 mL 1% XYLOCAINE given in lab by Anupam Richter in Right Groin via Subcutaneous. Ordered by Anupam Wade. FENTANYL 04/18/2017 11:56:49 AM 50 mcg Syl Gillis 50 mcg FENTANYL given in lab by Syl Gillis RN in Right Antecubital via Peripheral IV. Ordered by Anupam Richter. FENTANYL 04/18/2017 12:32:55 PM 25 mcg Ivonne Xie For pain 25 mcg FENTANYL given in lab by Ivonne Xie RN in Right Antecubital via Peripheral IV. Ordered by Anupam Richter. Reason: For pain. given by Ivonne Reynolds Medication (Drip) Medication Time Given Dosage/Unit Concentration/Unit Diluent (ml) Solutio n HEPARIN DRIP 04/18/2017 11:13:50 AM 700 units/hr 72252 units 250 D5W 700 units/hr HEPARIN DRIP discontinued prior to arrival to the medical lab technician in Right Antecubital via Afua pheral IV. Pump/Drip Flow = 7 ml/hr [place] [address] units in 250 ml. Reason: As per physicians verbal order. Discontinued a t 04/18/2017 12:00. INSULIN (HUMAN) 04/18/2017 11:35:28 AM 0.025 units/kg/hr 100 units 100 NaCl .9 Patient arrived on 0.025 units/kg/hr INSULIN (HUMAN) in Left Antecubital via Peripheral IV. Pump/Drip Flow = 1.5 ml/hr using NaCl .9 with a concentration of 100 units in 100 ml. IV Solutions 04/18/2017 11:35:25 AM 0 mL (IV) 500 NaCl .9 IV Solutions given in lab by Syl Gillis RN in Right Antecubital via Peripheral IV. Pump/Drip Garth w = 20 ml/hr using NaCl .9. IV Solutions 04/18/2017 11:35:29 AM 50 mL (IV) 1000 D5W .9 NaCl Patient arrived on IV Solutions in Left Antecubital via Peripheral IV. Pump/Drip Flow using D5W .9 Na Cl. Initial Case Assessment Cardiovascular HR Rhythm NIBP Chest Pain 85 sr 152/91 0 Circulatory - Right Pulses Femoral 2 Scale (0,1,2,3,4,d) Circulatory - Left Pulses Femoral 2 Scale (0,1,2,3,4,d) Neurological State Oriented to time-place- Alert Moves all extremities person Respiration - General Respiration Rate SpO2 (%) (B/min) 18 100 Final Case Assessment Cardiovascular HR Rhythm NIBP Chest Pain 84 sr 151/85 0 Edema Present Skin color Skin None Normal Warm Dry Circulatory - Right Pulses Femoral 2 Scale (0,1,2,3,4,d) Circulatory - Left Pulses Femoral 2 Scale (0,1,2,3,4,d) Neurological State Lethargic Respiration - General Respiration Rate SpO2 (%) (B/min) 12 100 Chronological Log Time Study Chronological Log 700 units/hr HEPARIN DRIP discontinued prior to arrival to the medical lab technician in Right Antecubital vi a Peripheral IV. 11:13:50 Pump/Drip Flow = 7 ml/hr [place] [address] units in 250 ml. Reason: A s per physicians verbal order. Discontinued at 04/18/2017 12:00. 11:28:56 Patient arrived via Bed. 11:28:59 Patient Name, D.O.B, / Armband Verified By R.N. 11:35:10 Consent signed by the physician and the patient and verified by the Complaint Investigations Officer staff. 11:35:11 Pre-op and post- op instructions given; patient acknowledges understanding of instructions. 11:35:12 Verbal Stimulation=2 Physical Stimulation=2 Airway=2 Respiration=2 TOTAL=8. (0=absent, 1=li mited, 2=present) 11:35:14 Presedation assessment performed by Complaint Investigations Officer RN. 11:35:16 Patient has been NPO for More than 6Hrs. 11:35:18 Skin Breakdown-reddened bottom 11:35:21 Jennifer Prominences Protected 11:35:24 A # 20 IV was noted in the Antecubital (right). Grade = patent IV Solutions given in lab by Syl Gillis, RN in Right Antecubital via Peripheral IV. Pump/Dr ip Flow = 20 ml/hr using 11:35:25 NaCl .9. 11:35:26 A # 20 IV was noted in the Antecubital (left). Grade = 0 Patient arrived on 0.025 units/kg/hr INSULIN (HUMAN) in Left Antecubital via Peripheral IV. Pum p/Drip Flow = 1.5 11:35:28 ml/hr using NaCl .9 with a concentration of 100 units in 100 ml. 11:35:29 Patient arrived on IV Solutions in Left Antecubital via Peripheral IV. Pump/Drip Flow using D5W .9 NaCl. 11:35:30 History and physical on the chart or being dictated. Vitals capture started with the following parameters, Patient=Adult, Interval=3 min, Initial Pr wwjkmr=692 mmHg, 11:35:33 Deflation Rate=5 mmHg, Cuff placed on Left Ankle 11:36:13 HR=85 bpm, YFZO=890/84 mmhg, SpO2=99.0 %, Resp=13 B/min, Adama=10 11:39:15 HR=86 bpm, LPNR=466/87 mmhg, KeH6=704.0 %, Resp=12 B/min, Adama=10 11:42:13 CV=195 bpm, HVQI=286/91 mmhg, SpO2=99.0 %, Resp=14 B/min, Adama=10 Assessment: Initial Case, HR=85 BPM, Rhythm=sr, RTIB=740/91 mmhg, Chest Pain=0 Right Pulses: Femoral=2 11:42:56 Left Pulses: Post Tib=2, Femoral=2 Neurological: State=Alert, Ox3, GOTTLIEB Respiration: Resp=18 B/min, NbQ9=820 % 11:43:40 Bilateral groins prepped with 2% chlorhexidine, and draped after a 3 minute waiting time. 11:43:46 Reference ECG taken 11:43:49 MD arrived. 11:45:14 HR=86 bpm, BUFH=137/87 mmhg, XnF9=389.0 %, Resp=12 B/min 11:48:18 HR=84 bpm, QKDP=426/85 mmhg, LrM9=998.0 %, Resp=16 B/min 11:50:59 Pressure channel 1 zeroed. 11:51:16 HR=85 bpm, QDYC=907/90 mmhg, SxO4=509.0 %, Resp=9 B/min, Adama=10 11:54:14 HR=84 bpm, WUWM=581/89 mmhg, AhD4=796.0 %, Resp=11 B/min Time Out. Correct patient, correct procedure, correct physician, power injector not loaded with contrast with surgical 11:55:34 team present. Time Out Concurred by MD and individual staff in procedure. 0.5 mg VERSED given in lab by Syl Gillis RN in Right Antecubital via Peripheral IV. Ordere d by Rober, 11:55:50 Anupam. 11:56:32 Case Start 11:56:34 20 mL 1% XYLOCAINE given in lab by Anupam Richter in Right Groin via Subcutaneous. Order ed by Anupam Richter. 50 mcg FENTANYL given in lab by Syl Gillis, RN in Right Antecubital via Peripheral IV. Orde red by Rober, 11:56:49 Anupam. 11:57:15 HR=84 bpm, YYFX=221/92 mmhg, VoC8=871.0 %, Resp=11 B/min, Adama=10 11:59:08 Access site was Right Femoral Artery. A INTRODUCER SET, MICROPUNCTURE, STIFFENED FR 5 was advanced into the Fem Art (right) using the 12:00:12 Percutaneous technique. 12:00:15 HR=84 bpm, XBZD=459/82 mmhg, SpO2=99.0 %, Resp=13 B/min, Adama=10 12:02:46 An injection in the Fem Art (right) was made through the INTRODUCER SET, MICROPUNCTURE, STI FFENED FR 5. A SHEATH, FR5.5 PRELUDE 11CM FR 5 was exchanged in the Fem Art (right). This was necessary in o rder to 12:03:01 accomodate a larger catheter. 12:03:15 HR=83 bpm, CKKI=010/77 mmhg, TlX6=170.0 %, Resp=11 B/min, Adama=10 12:03:29 dax hatch A JR 4.0 DXTERITY CATHETER FR 5 was advanced over a wire. OMNIPAQUE, 350 MG, 150ML 150ML was us ed for 12:03:44 injections. Recorded Pressure: LV, HR=84, Condition=Condition 1 12:05:20 (Left Ventricle) LV 140/0/7 Recorded Pressure: LV, Ao, HR=84, Condition=Condition 1 12:05:33 (Left Ventricle) LV 143/-1/8, (Aorta) Ao 146/66/98 12:06:09 The RCA was injected and visualized at various angles. OMNIPAQUE, 350 MG, 150ML 150ML used . 12:06:13 HR=81 bpm, BOKV=041/81 mmhg, JkE2=217.0 %, Resp=12 B/min, Adama=9 12:07:08 The SVG-PDA was injected and visualized at various angles. OMNIPAQUE, 350 MG, 150ML 150ML u sed. Recorded Pressure: Ao, HR=85, Condition=Condition 1 12:08:37 (Aorta) Ao 146/74/106 12:09:15 HR=83 bpm, SLHU=455/82 mmhg, LxD4=242.0 %, Resp=14 B/min, Adama=10 12:11:13 A WIRE, 3MMJ .035 180CM 180CM was inserted via Fem Art (right). to place jr4 into the oconnell 12:11:33 Wire removed 12:12:16 HR=84 bpm, UHOO=494/82 mmhg, BuH3=731.0 %, Resp=15 B/min, Adama=9 12:12:37 The OCONNELL-LAD was injected and visualized at various angles. OMNIPAQUE, 350 MG, 150ML 150ML used. After removing the current catheter a JL 4.0 INFINITI CATHETER FR 5 was advanced over a WIRE, 3 MMJ .035 180CM 12:13:43 180CM. 12:15:18 HR=86 bpm, HRXG=651/81 mmhg, WuQ9=535.0 %, Resp=12 B/min, Adama=9 12:17:31 The LCA was injected and visualized at various angles. OMNIPAQUE, 350 MG, 150ML 150ML used . After removing the current catheter a AL 1 INFINITI CATHETER FR 5 was advanced over a WIRE, 3MM J .035 180CM 12:18:13 180CM. 12:18:14 HR=84 bpm, OLEC=207/83 mmhg, EkK4=303.0 %, Resp=10 B/min, Adama=9 12:20:36 The SVG-OM 1 was injected and visualized at various angles. OMNIPAQUE, 350 MG, 150ML 150ML used. 12:21:16 HR=84 bpm, HAUX=172/87 mmhg, IqF2=982.0 %, Resp=10 B/min, Adama=9 12:22:19 Dr. Richter is reviewing the films. 12:24:17 HR=84 bpm, OXVG=816/88 mmhg, NrW3=428.0 %, Resp=17 B/min, Adama=9 12:26:13 A WIRE, 3MMJ .035 180CM 180CM was inserted via Fem Art (right). 12:26:18 Wire and catheter removed 12:27:11 Case End 12:27:19 HR=86 bpm, LLOT=809/89 mmhg, PnS1=918.0 %, Resp=14 B/min, Adama=9 12:27:29 Blood Glucose was checked. 228 by Ivonne Reynolds 12:27:53 Activated Clotting Time Drawn 12:29:23 Insulin drip increased to 2.5 ml/hr per Dr. Richter. 12:30:19 HR=85 bpm, ZSHX=416/89 mmhg, TcK1=062.0 %, Resp=13 B/min, Adama=9 12:31:32 Sheath removed; pressure applied to access site. 12:32:13 ACT (Normal Range 90-180) = 103 25 mcg FENTANYL given in lab by Ivonne Xie, RN in Right Antecubital via Peripheral IV. O rdered by Rober, 12:32:55 [place]. Reason: For pain. given by Ivonne Reynolds 12:33:19 HR=84 bpm, OQUQ=374/85 mmhg, LgF3=095.0 %, Resp=15 B/min, Adama=9 12:36:20 HR=84 bpm, IMTI=134/99 mmhg, QmW2=433.0 %, Resp=16 B/min, Adama=10 12:39:20 HR=84 bpm, BYKA=681/86 mmhg, CaQ0=704.0 %, Resp=10 B/min, Adama=10 12:39:33 Jeri is continuing to hold pressure. 12:42:20 HR=83 bpm, CSXW=075/88 mmhg, NuK7=221.0 %, Resp=12 B/min, Adama=10 12:45:18 HR=82 bpm, QUMJ=633/88 mmhg, LtS7=896.0 %, Resp=14 B/min, Adama=10 12:46:42 No case complications noted. 12:46:50 A Left Heart Cath was performed. 12:48:17 HR=83 bpm, UXZM=378/86 mmhg, RxX0=195.0 %, Resp=12 B/min, Adama=10 12:51:21 HR=82 bpm, WDWC=505/85 mmhg, CxT3=354.0 %, Resp=12 B/min, Adama=10 12:52:07 Groin held for 20 mins. Groin looks good. No hematoma or oozing present 12:52:45 Vitals capture stopped. Assessment: Final Case, HR=84 BPM, Rhythm=sr, YCIK=583/85 mmhg, Chest Pain=0, Edema=None, [place] r=Normal, Skin = Warm, Dry Right Pulses: Femoral=2 12:52:46 Left Pulses: Post Tib=2, Femoral=2 Neurological: State=Lethargic Respiration: Resp=12 B/min, TgE5=014 % 12:56:09 Sterile dressing applied to site 12:56:14 Bedside Report will be given. 12:56:18 Patient moved to stretcher End Study - Contrast Media Used In Study Contrast Total Opened (mL) Total Used (mL) Total Wasted (mL) Omnipaque 75 75 0 End Study - Maximum Contrast Load Max Contrast Load (mL) 300.0 End Study - Radiation Exposure Fluoro Time (minutes) 8.2 End Study - Sheaths Sheaths Pulled By Sheath Hold Time (min) Darya Flood End Study - Patient Disposition Complications No
--- NOTE | 2017-04-18 13:28 | MA ---
cc: ANUPAM WINSLOW DO DATE 04/18/2017 PROCEDURE Left heart catheterization, coronary angiogram, bypass angiogram, moderate sedation 30 minutes. PREPROCEDURE DIAGNOSIS NSTEMI, coronary artery disease, history of CABG x4. POSTPROCEDURE DIAGNOSIS NSTEMI, coronary artery disease, history of CABG x4 (3/4 grafts patent). MEDICATIONS 1. Versed 0.5 mg 2. Fentanyl 100 mcg 3. Insulin drip 4. Heparin drip discontinued CONTRAST 75 cc FLUOROSCOPY 8.2 minutes SEDATION Moderate sedation, 30 minutes ESTIMATED BLOOD LOSS 10 cc PROCEDURAL SUMMARY Ezio Aragon is a pleasant 61-year-old male who presented to [facility] emergency room in [facility]. During this, he was found to have an elevated troponin and because of this he was recommended cardiac catheterization. The risks, benefits and alternatives were explained to him and he consented as such. He was brought to lab and prepped in the usual sterile fashion. Right femoral artery was accessed using a micropuncture needle and a modified Seldinger technique for placement of a 5-[place] sheath. This was easily aspirated and flushed. A JR-4 was advanced over a J-wire to the ascending aorta and across the aortic valve for measurement of left ventricular pressures. This was pulled back across the aortic valve showing no significant gradient of aortic stenosis. JR-4 was used for selective angiography of the [place] right coronary, as well as the saphenous vein graft to the PDA. I was unable to engage the SVG to the obtuse marginal and so the JR-4 was then pulled back and advanced up the left subclavian for selective angiography of the [place] to LAD. JR-4 was exchanged out for a JL-4 which was used for selective angiography of the [place] left coronary artery system. This was exchanged out for an AL-1 which was used for selective angiography of the SVG to obtuse marginal. AL-1 was removed over a J-wire. ACT was checked and was 103 and so the right femoral artery sheath was removed on the table and pressure held for hemostasis. 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 FINDINGS Left main is a small vessel with 95% ostial stenosis. LAD overall small vessel with diffuse 80% disease in the proximal portion and 100% occluded in the midportion. He has one small diagonals off it with an overall small vessel of 1-1.5 mm with diffuse 70-80% disease. Left circumflex is overall a small vessel with multiple lesions of 80%. Overall, the obtuse marginal is around 1.5 mm. RCA is a small vessel with a 90% occlusion in the proximal portion and 100% occlusion distally. O[place] to LAD is patent with no significant disease. It does fill retrograde into the mid-LAD. Distal to the anastomosis, the patient has mild tortuosity, but no significant lesions. SVG to RCA patent with no significant disease. It appears that the SVG touchdown to the PDA and then fills retrograde into the PLV. By history, the patient had a and SVG to the PDA and PLV but only two markers were found on the aorta. Most likely this was either a bifurcating or jump graft of some type with the portion to the PLV occluded. SVG to obtuse marginal patent with no significant disease. It touches down to a small first obtuse marginal which breaks into an upper and lower branch and fills retrogradely somewhat back towards the circumflex. LVEDP eight. IMPRESSIONS 1. NSTEMI most likely type 2 due to DKA. 2. DKA due to unable to afford his insulin. 3. Coronary artery disease. 4. History of CABG x4 (3 of 4 grafts patent as above). RECOMMENDATIONS 1. Mr. Aragon presented with DKA an elevated troponin and this is most likely a type 2 spill in nature. 2. He will continue with medical management as three of four of his grafts are patent and the one graft, which is most likely occluded (SVG to PLV) is retrogradely filled from his SVG to PDA. 3. He does have significant [place] vessel disease but in general his vessels throughout are around 1-1.5 mm and diffusely diseased and unable to be intervened on. 4. We will continue with medical management including his aspirin, Plavix and beta serafin therapy. We will plan on adding statin therapy. 5. Overall, he needs better blood sugar control and compliance with his medications, he should be placed on medications that he can afford. Thank you for allowing me to see Ezio Aragon. If there are any questions, please do not hesitate to call. Anupam Winslow DO VGP/DJL /12:43 PM /1:11 PM ONOFRE
--- NOTE | 2017-04-18 13:48 | PD.CARD.PN ---
Subjective Subjective Remarks Post-cath Doing well, chronic back pain No chest pain Objective Medications Current Medications Medications (Trade) Dose Ordered Sig/Nuzhat Route Start Time Stop Time Status Last Admin Dextrose/Sodium Chloride 1,000 ml @ 200 mls/hr Q5H IV 04/16/17 22:52 04/18/17 09:52 Potassium Chloride 100 ml @ 100 mls/hr Q1H PRN IV 04/16/17 23:00 Potassium Chloride 100 ml @ 50 mls/hr Q2H PRN IV 04/16/17 23:00 Potassium Chloride 100 ml @ 100 mls/hr Q1H PRN IV 04/16/17 23:00 Potassium Chloride 100 ml @ 100 mls/hr Q1H PRN IV 04/16/17 23:00 Potassium Chloride 100 ml @ 50 mls/hr Q2H PRN IV 04/16/17 23:00 Potassium Chloride 100 ml @ 50 mls/hr Q2H PRN IV 04/16/17 23:00 Potassium Chloride 100 ml @ 50 mls/hr Q2H PRN IV 04/16/17 23:00 Potassium Chloride 100 ml @ 50 mls/hr Q2H PRN IV 04/16/17 23:00 (Sodium Bicarbonate 8.4% Inj) 100 meq UNSCH PRN IV PUSH 04/16/17 23:00 (Sodium Bicarbonate 8.4% Inj) 50 meq UNSCH PRN IV PUSH 04/16/17 23:00 Sodium Phosphate 15 mmol/Sodium Chloride 105 ml @ 25 mls/hr UNSCH PRN IV 04/16/17 23:00 Insulin Human Regular 100 units/ Sodium Chloride 100 ml @ 8.25 mls/hr TITRATE IV 04/17/17 01:15 04/17/17 02:32 (NS Flush) 2 ml UNSCH PRN IV FLUSH 04/17/17 01:30 (NS Flush) 2 ml BID IV FLUSH 04/17/17 09:00 04/17/17 09:56 (Narcan Inj) 0.4 mg UNSCH PRN IV PUSH 04/17/17 01:30 (Norvasc) 5 mg DAILY PO 04/17/17 09:00 (Coreg) 6.25 mg BID PO 04/17/17 09:00 04/17/17 21:57 (Plavix) 75 mg DAILY PO 04/17/17 09:00 04/17/17 09:18 (Synthroid) 100 mcg DAILY@06 PO 04/18/17 06:00 04/18/17 05:09 (Prinivil) 10 mg Q12HR PO 04/17/17 09:00 04/17/17 21:58 (Pamelor) 75 mg HS PO 04/17/17 21:00 04/17/17 21:57 (Lyrica) 75 mg TID PO 04/17/17 09:00 04/17/17 18:58 (Vitamin B12) 1,000 mcg DAILY PO 04/17/17 09:00 04/17/17 09:17 (Ecotrin Ec) 81 mg DAILY PO 04/17/17 09:00 04/17/17 09:17 (Nitrostat Sl) 0.4 mg Q5M PRN SL 04/17/17 08:15 (Lipitor) 80 mg HS PO 04/18/17 21:00 Vital Signs / I&O Vital Signs Date Time Temp Pulse Resp B/P (MAP) Pulse Ox O2 Delivery O2 Flow Rate FiO2 04/18/17 09:12 99 21 04/18/17 06:00 75 04/18/17 04:00 98.6 72 15 83/52 (62) 100 04/18/17 04:00 75 04/18/17 02:00 75 04/18/17 00:00 78 04/18/17 00:00 98.6 78 14 110/62 (78) 100 04/17/17 22:00 86 04/17/17 20:01 100 Nasal Cannula 2.00 04/17/17 20:00 97.7 78 14 109/62 (78) 100 04/17/17 20:00 78 04/17/17 19:00 100 Nasal Cannula 3.00 04/17/17 18:00 82 04/17/17 16:00 78 04/17/17 16:00 98.0 78 14 109/60 (76) 100 04/17/17 14:00 84 I/O 04/17/17 04/17/17 04/17/17 04/18/17 04/18/17 04/18/17 07:00 15:00 23:00 07:00 15:00 23:00 Intake Total 2000 ml 1240 ml 784 ml Output Total 400 ml 500 ml 600 ml Balance 1600 ml 740 ml 184 ml Intake Oral 240 ml 30 ml IV Total 2000 ml 1000 ml 754 ml Output Urine Total 400 ml 500 ml 600 ml # Voids 1 1 Physical Exam GENERAL: NAD, AAOx3 SKIN: Warm and dry. HEAD: Atraumatic. Normocephalic. EYES: Pupils equal and round. No scleral icterus. No injection or drainage. ENT: No nasal bleeding or discharge. Mucous membranes pink and moist. NECK: Trachea midline. No JVD. CARDIOVASCULAR: Regular rate and rhythm. No murmurs RESPIRATORY: No accessory muscle use. Clear to auscultation. Breath sounds equal bilaterally. GASTROINTESTINAL: Abdomen soft, non-tender, nondistended. Hepatic and splenic margins not palpable. MUSCULOSKELETAL: Extremities without clubbing, cyanosis, or edema. No obvious deformities. Right femoral no hematoma/bruit NEUROLOGICAL: Awake and alert. No obvious cranial nerve deficits. Motor grossly within normal limits. Five out of 5 muscle strength in the arms and legs. Normal speech. PSYCHIATRIC: Appropriate mood and affect; insight and judgment normal. Laboratory Laboratory Tests Test 04/17/17 15:29 04/17/17 23:47 04/18/17 05:07 04/18/17 06:09 Activated Partial Thromboplast Time 33.1 SEC 33.2 SEC 112.5 SEC 77.6 SEC Blood Urea Nitrogen 23 MG/DL 17 MG/DL Creatinine 1.25 MG/DL 1.01 MG/DL Random Glucose 176 MG/DL 251 MG/DL Total Protein 4.5 GM/DL 4.5 GM/DL Calcium Level 6.5 MG/DL 6.4 MG/DL Sodium Level 139 MEQ/L 140 MEQ/L Potassium Level 4.4 MEQ/L 4.0 MEQ/L Chloride Level 111 MEQ/L 113 MEQ/L Carbon Dioxide Level 17.0 MEQ/L 17.0 MEQ/L Anion Gap 11 MEQ/L 10 MEQ/L Estimat Glomerular Filtration Rate 59 ML/MIN 76 ML/MIN Protein Corrected Calcium 7.8 MG/DL 7.7 MG/DL Total Creatine Kinase 94 U/L Troponin I 4.24 NG/ML Triglycerides Level 207 MG/DL Cholesterol Level 130 MG/DL LDL Cholesterol 67 MG/DL HDL Cholesterol 21.6 MG/DL Cholesterol/HDL Ratio 6.01 RATIO B-Hydroxybutyrate 1.58 MMOL/L White Blood Count 6.7 TH/MM3 Red Blood Count 2.84 MIL/MM3 Hemoglobin 9.1 GM/DL Hematocrit 27.2 % Mean Corpuscular Volume 95.6 FL Mean Corpuscular Hemoglobin 32.2 PG Mean Corpuscular Hemoglobin Concent 33.7 % Red Cell Distribution Width 14.8 % Platelet Count 122 TH/MM3 Mean Platelet Volume 8.1 FL Neutrophils (%) (Auto) 67.7 % Lymphocytes (%) (Auto) 24.1 % Monocytes (%) (Auto) 5.0 % Eosinophils (%) (Auto) 2.5 % Basophils (%) (Auto) 0.7 % Neutrophils # (Auto) 4.5 TH/MM3 Lymphocytes # (Auto) 1.6 TH/MM3 Monocytes # (Auto) 0.3 TH/MM3 Eosinophils # (Auto) 0.2 TH/MM3 Basophils # (Auto) 0.0 TH/MM3 CBC Comment DIFF FINAL Differential Comment Assessment and Plan Problem List: (1) DKA (diabetic ketoacidoses) ICD Codes: E13.10 - Other specified diabetes mellitus with ketoacidosis without coma Status: Acute (2) NSTEMI (non-ST elevated myocardial infarction) ICD Codes: I21.4 - Non-ST elevation (NSTEMI) myocardial infarction Status: Acute (3) CAD (coronary artery disease) ICD Codes: I25.10 - Atherosclerotic heart disease of [place] coronary artery without angina pectoris Status: Chronic (4) Hx of CABG ICD Codes: Z95.1 - Presence of aortocoronary bypass graft (5) Impaired mobility and activities of daily living ICD Codes: Z74.09 - Other reduced mobility Status: Acute (6) Acute kidney insufficiency ICD Codes: N28.9 - Disorder of kidney and ureter, unspecified; B96.89 - Other specified bacterial agents as the cause of diseases classified elsewhere Status: Acute (7) HTN (hypertension) ICD Codes: I10 - Essential (primary) hypertension Status: Acute Assessment and Plan 1) DKA on presentation Currently on insulin drip 2) NSTEMI s/p cardiac catheterization, no lesions for intervention CABGx4 (3/4 patent, with jump graft to PLB occluded) [place] vessels severely diseased and overall around 1.5mm, not suitable for intervention 3) Con't medical management ASA/Plavix/BB therapy Added statin therapy Needs blood sugar control Anupam Richter DO Apr 18, 2017 13:48
[2017-04-18] MEDS ORDERED: INSULIN REGULAR 100 UNITS/NS 100 ML (DKA Protocol) IV SCH ×2 (14:00)
[2017-04-18 15:09] LABS: BICARBONATE 16.2 MEQ/L (21.0-32.0); POTASSIUM 4.1 MEQ/L (3.5-5.1)
[2017-04-18 15:33] LABS: CALCIUM-PROTEIN CORRECTED 7.5 MG/DL (8.5-10.1)
--- NOTE | 2017-04-18 15:34 | ECHRPT ---
Indication: NSTEMI CONCLUSIONS Normal left ventricular size. Wall thickness is normal. The left ventricular systolic function is normal (EF 65%). Mild mitral valve regurgitation. There is mild tricuspid valve regurgitation. There is estimated mild pulmonary hypertension present (range 40-50 mmHg). BP: 83 / 52 HR: Rhythm: Sinus MEASUREMENTS (Male / Female) Normal Values Technical Quality:Fair 2D ECHO LV Diastolic Diameter PLAX 4.1 cm 4.2 - 5.9 / 3.9 - 5.3 cm LV Systolic Diameter PLAX 2.6 cm IVS Diastolic Thickness 1.0 cm 0.6 - 1.0 / 0.6 - 0.9 cm LVPW Diastolic Thickness 1.0 cm 0.6 - 1.0 / 0.6 - 0.9 cm LV Relative Wall Thickness 0.5 LVOT Diameter 2.5 cm Aortic Root Diameter 3.0 cm LA Systolic Diameter LX 3.5 cm 3.0 - 4.0 / 2.7 - 3.8 cm M-MODE AV Cusp Separation MM 2.0 cm DOPPLER AV Peak Velocity 119.0 cm/s AV Peak Gradient 5.7 mmHg AV Mean Gradient 3.0 mmHg AV Velocity Time Integral 22.3 cm LVOT Peak Velocity 80.5 cm/s LVOT Peak Gradient 2.6 mmHg LVOT Velocity Time Integral 14.8 cm AV Area Cont Eq vti 3.3 cm AV Area Cont Eq pk 3.3 cm Mitral E Point Velocity 85.9 cm/s Mitral A Point Velocity 110.0 cm/s Mitral E to A Ratio 0.8 LV E' Lateral Velocity 14.6 cm/s Mitral E to LV E' Lateral Ratio 5.9 LV E' Septal Velocity 7.7 cm/s Mitral E to LV E' Septal Ratio 11.2 TR Peak Velocity 280.0 cm/s TR Peak Gradient 31.4 mmHg Right Atrial Pressure 10.0 mmHg Pulmonary Artery Systolic Pressu 41.4 mmHg Right Ventricular Systolic Press 41.4 mmHg PV Peak Velocity 92.5 cm/s PV Peak Gradient 3.4 mmHg FINDINGS LEFT VENTRICLE Normal left ventricular size. Wall thickness is normal. The left ventricular systolic function is normal. MITRAL VALVE Mild mitral valve regurgitation. TRICUSPID VALVE There is mild tricuspid valve regurgitation. There is estimated mild pulmonary hypertension present (range 40-50 mmHg). Ina Hackett MD, FACC (Electronically Signed) Final Date:18 April 2017 15:32
[2017-04-18] MEDS: INSULIN DETEMIR 100 UNITS/ML VIAL SQ SCH ×2 (15:45→22:38)
[2017-04-18] MEDS: SODIUM CHLOR 0.9% 1000 ML INJ 1,000 ML IV SCH (15:45)
[2017-04-18] MEDS ORDERED: DEXTROSE 50% IN WATER 50 ML VIAL(D50) IV PUSH PRN (15:45)
[2017-04-18] MEDS ORDERED: GLUCAGON 1 MG/ML VIAL OTHER PRN (15:45)
[2017-04-18] MEDS: INSULIN ASPART SUPPLEMENTAL SCALE SQ SCH ×2 (17:00→22:39)
[2017-04-18] MEDS: NORTRIPTYLINE HCL 25 MG CAP PO SCH (22:36)
[2017-04-18] MEDS: ATORVASTATIN 80 MG TAB PO SCH (22:36)
[2017-04-19] VITALS (14 sets, daily range): BP systolic 109–144; BP diastolic 56–83; PULSE 72–96; RESP 16–22; TEMP 97.8–98.8; O2SAT 97–100
[2017-04-19] MEDS: SODIUM CHLOR 0.9% 1000 ML INJ 1,000 ML IV SCH ×2 (03:36→15:35)
[2017-04-19] MEDS: LEVOTHYROXINE SODIUM 100 MCG TAB PO SCH (06:19)
[2017-04-19 06:21] LABS: AUTOMATED NEUTROPHIL # 4.6 TH/MM3 (1.8-7.7); BASOPHIL % 0.6 % (0.0-2.0); EOSINOPHIL # 0.2 TH/MM3 (0-0.4); EOSINOPHIL % 2.1 % (0.0-4.0); HEMATOCRIT 27.8 % (39.0-51.0); HEMO FLAGS DIFF FINAL; LYMPH % 32.5 % (9.0-44.0); LYMPHOCYTE # 2.5 TH/MM3 (1.0-4.8); MEAN CELL VOLUME 94.8 FL (80.0-100.0); MEAN CORPUSCULAR HEMOGLOBIN 31.9 PG (27.0-34.0); MEAN CORPUSCULAR HGB CONC 33.7 % (32.0-36.0); MONO % 5.6 % (0.0-8.0); NEUT % 59.2 % (16.0-70.0); PLATELET COUNT 100 TH/MM3 (150-450); RED BLOOD COUNT 2.93 MIL/MM3 (4.50-5.90); RED CELL DISTRIBUTION WIDTH 14.6 % (11.6-17.2); WHITE BLOOD COUNT 7.7 TH/MM3 (4.0-11.0)
[2017-04-19 06:48] LABS: BICARBONATE 21.6 MEQ/L (21.0-32.0); POTASSIUM 3.5 MEQ/L (3.5-5.1)
[2017-04-19 07:41] LABS: CALCIUM-PROTEIN CORRECTED 7.6 MG/DL (8.5-10.1)
[2017-04-19] MEDS: INSULIN ASPART SUPPLEMENTAL SCALE SQ SCH ×4 (08:00→20:53)
[2017-04-19] MEDS: CARVEDILOL 6.25 MG TAB PO SCH ×2 (08:38→20:50)
[2017-04-19] MEDS: amLODIPine BESYLATE 5 MG TAB PO SCH (08:38)
[2017-04-19] MEDS: SODIUM CHLORIDE 0.9% FLUSH 10 ML FLUSH IV FLUSH SCH ×2 (08:38→19:54)
[2017-04-19] MEDS: CLOPIDOGREL 75 MG TAB PO SCH (08:38)
[2017-04-19] MEDS: LISINOPRIL 10 MG TAB PO SCH ×2 (08:38→20:52)
[2017-04-19] MEDS: CYANOCOBALAMIN 1,000 MCG TAB PO SCH (08:39)
[2017-04-19] MEDS: PREGABALIN 75 MG CAP PO SCH ×3 (08:44→17:11)
[2017-04-19] MEDS: ASPIRIN EC 81 MG TABEC PO SCH (08:44)
[2017-04-19] MEDS: INSULIN DETEMIR 100 UNITS/ML VIAL SQ SCH (09:00)
--- NOTE | 2017-04-19 10:16 | HHI.PR ---
Subjective Remarks in no acute distress. denies chest pain or sob. noted a drop in blood sugar earlier today. d/w the RN and otherwise no other acute issues over night. Objective Vitals Vital Signs Date Time Temp Pulse Resp B/P (MAP) Pulse Ox O2 Delivery O2 Flow Rate FiO2 04/19/17 08:00 98.2 84 21 123/72 (89) 98 04/19/17 08:00 80 04/19/17 07:51 97 21 04/19/17 07:00 Room Air 04/19/17 06:00 72 04/19/17 04:00 98.8 73 19 109/56 (73) 98 04/19/17 04:00 73 04/19/17 02:00 74 04/19/17 00:00 98.7 89 22 122/68 (86) 100 04/19/17 00:00 90 04/18/17 22:00 87 04/18/17 20:42 100 04/18/17 20:00 98.7 88 22 131/68 (89) 100 04/18/17 20:00 87 04/18/17 19:00 100 Room Air 04/18/17 18:00 93 04/18/17 16:00 82 04/18/17 16:00 97.6 87 15 142/75 (97) 100 04/18/17 14:00 82 04/18/17 12:00 97.4 80 15 165/81 (109) 100 I/O 04/18/17 04/18/17 04/18/17 04/19/17 04/19/17 04/19/17 07:00 15:00 23:00 07:00 15:00 23:00 Intake Total 784 ml 2621 ml 530 ml Output Total 600 ml 2600 ml Balance 184 ml 21 ml 530 ml Intake Oral 30 ml 480 ml 420 ml IV Total 754 ml 2141 ml 110 ml Output Urine Total 600 ml 2600 ml # Voids 3 # Bowel Movements 2 Result Diagram: 04/19/17 0532 04/19/17 0532 Imaging Last Impressions Chest CT 04/17/17 0000 Signed Impressions: Service Date/Time: Monday, April 17, 2017 01:29 - CONCLUSION: 1. Scattered subcentimeter nodules and mild infectious/inflammatory appearing infiltrate of both lungs seen in the setting of mild emphysema and mild bronchiectasis. No large or dense consolidation. No cavitary changes. 6 month followup noncontrast chest CT is recommended. 2. Previous cabbage. Normal heart size. 3. No adenopathy. 4. Old fractures of the left scapula and several left ribs. Ramon Gale MD Chest X-Ray 04/16/17 [id number] Signed Impressions: Service Date/Time: Sunday, April 16, 2017 22:01 - CONCLUSION: Questionable 1.6 cm focal lucency. A cavitary lesion cannot be excluded. A noncontrast CT examination of the chest could be performed for further evaluation. Ramon Arreguin MD Objective Remarks GENERAL: in no apparent distress. CARDIOVASCULAR: Regular rate and regular rhythm without murmurs, gallops, or rubs. RESPIRATORY: Clear to auscultation. Breath sounds equal bilaterally. No wheezes , rales, or rhonchi. GASTROINTESTINAL: Abdomen soft, non-tender, nondistended. Normal, active bowel sounds MUSCULOSKELETAL: Extremities without clubbing, cyanosis, or edema. NEURO: Alert & Oriented x4 to person, place, time, situation. Moves all ext x4 Procedures cardiac cath. Medications and IVs Current Medications Sodium Chloride 1,000 ml @ 1,000 mls/hr Q1H ONCE IV Last administered on 22:45; Start 04/16/17 at 22:00; Stop 04/16/17 at 22:59; Status DC Ondansetron HCl (Zofran Inj) 4 mg ONCE ONCE IV Last administered on 04/16/17 22:46; Start 04/16/17 at 22:00; Stop 04/16/17 at 22:02; Status DC Sodium Chloride 1,000 ml @ 250 mls/hr Q4H IV Last administered on 04/17/17 07 :06; Start 04/16/17 at 22:52; Stop 04/17/17 at 13:50; Status DC Dextrose/Sodium Chloride 1,000 ml @ 200 mls/hr Q5H IV Last administered on 09:52; Start 04/16/17 at 22:52; Stop 04/18/17 at 15:34; Status DC Insulin Human Regular (NovoLIN R INJ) 4 units BOLUS ONCE IV PUSH Last administered on 04/17/17 00:57; Start 04/16/17 at 23:00; Stop 04/16/17 at 23:01 ; Status DC Insulin Human Regular 100 units/ Sodium Chloride 100 ml @ 0 mls/hr TITRATE PRN IV Blood Sugar Management; Start 04/16/17 at 23:00; Status UNV Potassium Chloride 100 ml @ 100 mls/hr Q1H PRN IV SEE LABEL COMMENTS; Start 04/16/17 at 23:00; Stop 04/18/17 at 15:34; Status DC Potassium Chloride 100 ml @ 50 mls/hr Q2H PRN IV SEE LABEL COMMENTS; Start at 23:00; Stop 04/18/17 at 15:34; Status DC Potassium Chloride 100 ml @ 100 mls/hr Q1H PRN IV SEE LABEL COMMENTS; Start 04/16/17 at 23:00; Stop 04/18/17 at 15:35; Status DC Potassium Chloride 100 ml @ 100 mls/hr Q1H PRN IV SEE LABEL COMMENTS; Start 04/16/17 at 23:00; Stop 04/18/17 at 15:35; Status DC Potassium Chloride 100 ml @ 50 mls/hr Q2H PRN IV SEE LABEL COMMENTS; Start at 23:00; Stop 04/18/17 at 15:35; Status DC Potassium Chloride 100 ml @ 50 mls/hr Q2H PRN IV SEE LABEL COMMENTS; Start at 23:00; Stop 04/18/17 at 15:35; Status DC Potassium Chloride 100 ml @ 50 mls/hr Q2H PRN IV SEE LABEL COMMENTS; Start at 23:00; Stop 04/18/17 at 15:35; Status DC Potassium Chloride 100 ml @ 50 mls/hr Q2H PRN IV SEE LABEL COMMENTS; Start at 23:00; Stop 04/18/17 at 15:35; Status DC Sodium Bicarbonate (Sodium Bicarbonate 8.4% Inj) 100 meq UNSCH PRN IV PUSH SEE LABEL COMMENTS; Start 04/16/17 at 23:00; Stop 04/18/17 at 15:35; Status DC Sodium Bicarbonate (Sodium Bicarbonate 8.4% Inj) 50 meq UNSCH PRN IV PUSH SEE LABEL COMMENTS; Start 04/16/17 at 23:00; Stop 04/18/17 at 15:35; Status DC Sodium Phosphate 15 mmol/Sodium Chloride 105 ml @ 25 mls/hr UNSCH PRN IV SEE LABEL COMMENTS; Start 04/16/17 at 23:00; Stop 04/18/17 at 15:35; Status DC Insulin Human Regular 100 units/ Sodium Chloride 100 ml @ 0 mls/hr TITRATE PRN IV Blood Sugar Management; Start 04/17/17 at 00:45; Status UNV Insulin Human Regular 100 units/ Sodium Chloride 100 ml @ 8.25 mls/hr TITRATE IV Last administered on 04/17/17 02:32; Start 04/17/17 at 01:15; Stop at 14:03; Status DC Sodium Chloride 1,000 ml @ 100 mls/hr Q10H IV ; Start 04/17/17 at 01:17; Stop 04/17/17 at 01:20; Status DC Sodium Chloride (NS Flush) 2 ml UNSCH PRN IV FLUSH FLUSH AFTER USING IV ACCESS ; Start 04/17/17 at 01:30 Sodium Chloride (NS Flush) 2 ml BID IV FLUSH Last administered on 04/19/17 08: 38; Start 04/17/17 at 09:00 Naloxone HCl (Narcan Inj) 0.4 mg UNSCH PRN IV PUSH SEE LABEL COMMENTS; Start 04/17/17 at 01:30 Sodium Chloride 1,000 ml @ 999 mls/hr BOLUS ONCE IV Last administered on 04/17 01:51; Start 04/17/17 at 01:30; Stop 04/17/17 at 02:30; Status DC Aspirin (Aspirin Chew) 324 mg ONCE ONCE CHEW ; Start 04/17/17 at 04:30; Stop 04/17/17 at 04:33; Status DC Nitroglycerin (Nitroglycerin 2% Oint) 1 inch ONCE ONCE TOPICAL ; Start at 04:30; Stop 04/17/17 at 04:33; Status DC Pneumococcal Polyvalent Vaccine (Pneumovax-23 Inj) 25 mcg ONCE ONCE IM Last administered on 04/18/17 16:05; Start 04/18/17 at 10:00; Stop 04/18/17 at 10:01 ; Status DC Amlodipine Besylate (Norvasc) 5 mg DAILY PO Last administered on 04/19/17 08: 38; Start 04/17/17 at 09:00 Aspirin (Aspirin) 325 mg DAILY PO ; Start 04/17/17 at 09:00; Stop 04/17/17 at 09 :00; Status DC Carvedilol (Coreg) 6.25 mg BID PO Last administered on 04/19/17 08:38; Start 04/17/17 at 09:00 Clopidogrel Bisulfate (Plavix) 75 mg DAILY PO Last administered on 04/19/17 08 :38; Start 04/17/17 at 09:00 Levothyroxine Sodium (Synthroid) 100 mcg DAILY@06 PO Last administered on 06:19; Start 04/18/17 at 06:00 Lisinopril (Prinivil) 10 mg Q12HR PO Last administered on 04/19/17 08:38; Start 04/17/17 at 09:00 Nortriptyline HCl (Pamelor) 75 mg HS PO Last administered on 04/18/17 22:36; Start 04/17/17 at 21:00 Pregabalin (Lyrica) 75 mg TID PO Last administered on 04/19/17 08:44; Start 04/17/17 at 09:00 Cyanocobalamin (Vitamin B12) 1,000 mcg DAILY PO Last administered on 04/19/17 08:39; Start 04/17/17 at 09:00 Heparin Sodium (Porcine) (Heparin Inj) 7,000 units ONCE ONCE IV PUSH ; Start 04/17/17 at 08:00; Stop 04/18/17 at 13:02; Status DC Heparin Sodium (Porcine) (Heparin Inj) 3,600 units NOW ONCE IV PUSH Last administered on 04/17/17 13:37; Start 04/17/17 at 14:00; Stop 04/18/17 at 13:02 ; Status DC Heparin Sodium (Porcine) (Heparin Inj) 2,500 units UNSCH PRN IV PUSH APTT 25 TO 39 Last administered on 04/18/17 01:28; Start 04/17/17 at 14:00; Stop at 13:02; Status DC Heparin Sodium/ Dextrose 250 ml @ 7.2 mls/hr TITRATE PRN IV Coagulation management Last administered on 04/17/17 11:15; Start 04/17/17 at 08:00; Stop 04/18/17 at 13:01; Status DC Aspirin (Ecotrin Ec) 81 mg DAILY PO Last administered on 04/19/17 08:44; Start 04/17/17 at 09:00 Nitroglycerin (Nitrostat Sl) 0.4 mg Q5M PRN SL CHEST PAIN; Start 04/17/17 at 08 :15 Heparin Sodium (Porcine) (Heparin Inj) 5,000 units UNSCH PRN IV PUSH APTT<25 - APTT LESS THAN 25; Start 04/17/17 at 10:15; Stop 04/18/17 at 13:03; Status DC Midazolam HCl (Versed Inj) 2 mg STK-MED ONCE .ROUTE ; Start 04/18/17 at 11:48; Stop 04/18/17 at 11:49; Status DC Fentanyl Citrate (fentaNYL INJ) 100 mcg STK-MED ONCE .ROUTE ; Start 04/18/17 at 11:48; Stop 04/18/17 at 11:49; Status DC Heparin Sodium/ Sodium Chloride 1,000 ml @ As Directed STK-MED ONCE .ROUTE ; Start 04/18/17 at 11:48; Stop 04/18/17 at 11:49; Status DC Sodium Chloride 500 ml @ As Directed STK-MED ONCE .ROUTE ; Start 04/18/17 at 11 :48; Stop 04/18/17 at 11:49; Status DC Miscellaneous Information 1 ONCE ONCE XX Last administered on 04/18/17 12:45 ; Start 04/18/17 at 12:45; Stop 04/18/17 at 13:00; Status DC Atorvastatin Calcium (Lipitor) 80 mg HS PO Last administered on 04/18/17 22:36 ; Start 04/18/17 at 21:00 Insulin Human Regular 100 units/ Sodium Chloride 100 ml @ 6.62 mls/hr TITRATE IV ; Start 04/18/17 at 14:00; Stop 04/18/17 at 15:32; Status DC Insulin Detemir (Levemir Inj) 10 units BID SQ Last administered on 04/18/17 22 :38; Start 04/18/17 at 15:45 Dextrose (D50w (Vial) Inj) 50 ml UNSCH PRN IV PUSH HYPOGLYCEMIA-SEE COMMENTS; Start 04/18/17 at 15:45 Glucagon (Glucagon Inj) 1 mg UNSCH PRN OTHER HYPOGLYCEMIA-SEE COMMENTS; Start 04/18/17 at 15:45 Insulin Aspart (NovoLOG SUPPLEMENTAL SCALE) 1 ACHS SLIDING SCALE SQ Last administered on 04/18/17 22:39; Start 04/18/17 at 17:00 Sodium Chloride 1,000 ml @ 84 mls/hr [id number] IV Last administered on 03:36; Start 04/18/17 at 15:45 A/P Assessment and Plan A/P - DKA- resolved - had an episode of hypoglycemia earlier today. decreased levemir to 10 units subq daily- continue with accu-check and SSI. A1c 8.9 -ACS with history of CAD- s/p CABG s/p cardiac cath with : no lesions for intervention CABGx4 (3/4 patent, with jump graft to PLB occluded) [place] vessels severely diseased and overall around 1.5mm, not suitable for intervention continue aspirin, plavix , statin and coreg- cardiology consult appreciated . -acute kidney injury/ hyperkalemia- improved continue to monitor. -hyponatremia- due to hyperglycemia- has improved -COPD with no exacerbation- neb treatment as needed -DVT prophylaxis; subq Lovenox transfer to telemetry this afternoon if stable. consult PT. Debra Tinsley MD Apr 19, 2017 10:16
--- NOTE | 2017-04-19 11:46 | PD.CARD.PN ---
Subjective Subjective Remarks Feels well No chest pain/SOB overnight Objective Medications Current Medications Medications (Trade) Dose Ordered Sig/Nuzhat Route Start Time Stop Time Status Last Admin (NS Flush) 2 ml UNSCH PRN IV FLUSH 04/17/17 01:30 (NS Flush) 2 ml BID IV FLUSH 04/17/17 09:00 04/19/17 08:38 (Narcan Inj) 0.4 mg UNSCH PRN IV PUSH 04/17/17 01:30 (Norvasc) 5 mg DAILY PO 04/17/17 09:00 04/19/17 08:38 (Coreg) 6.25 mg BID PO 04/17/17 09:00 04/19/17 08:38 (Plavix) 75 mg DAILY PO 04/17/17 09:00 04/19/17 08:38 (Synthroid) 100 mcg DAILY@06 PO 04/18/17 06:00 04/19/17 06:19 (Prinivil) 10 mg Q12HR PO 04/17/17 09:00 04/19/17 08:38 (Pamelor) 75 mg HS PO 04/17/17 21:00 04/18/17 22:36 (Lyrica) 75 mg TID PO 04/17/17 09:00 04/19/17 08:44 (Vitamin B12) 1,000 mcg DAILY PO 04/17/17 09:00 04/19/17 08:39 (Ecotrin Ec) 81 mg DAILY PO 04/17/17 09:00 04/19/17 08:44 (Nitrostat Sl) 0.4 mg Q5M PRN SL 04/17/17 08:15 (Lipitor) 80 mg HS PO 04/18/17 21:00 04/18/17 22:36 (D50w (Vial) Inj) 50 ml UNSCH PRN IV PUSH 04/18/17 15:45 (Glucagon Inj) 1 mg UNSCH PRN OTHER 04/18/17 15:45 (NovoLOG SUPPLEMENTAL SCALE) 1 ACHS SLIDING SCALE SQ 04/18/17 17:00 04/18/17 22:39 Sodium Chloride 1,000 ml @ 84 mls/hr [id number] IV 04/18/17 15:45 04/19/17 03:36 (Levemir Inj) 10 units DAILY SQ 04/20/17 09:00 (Lovenox Inj) 40 mg Q24H SQ 04/20/17 09:00 Vital Signs / I&O Vital Signs Date Time Temp Pulse Resp B/P (MAP) Pulse Ox O2 Delivery O2 Flow Rate FiO2 04/19/17 10:00 77 04/19/17 08:00 98.2 84 21 123/72 (89) 98 04/19/17 08:00 80 04/19/17 07:51 97 21 04/19/17 07:00 Room Air 04/19/17 06:00 72 04/19/17 04:00 98.8 73 19 109/56 (73) 98 04/19/17 04:00 73 04/19/17 02:00 74 04/19/17 00:00 98.7 89 22 122/68 (86) 100 04/19/17 00:00 90 04/18/17 22:00 87 04/18/17 20:42 100 04/18/17 20:00 98.7 88 22 131/68 (89) 100 04/18/17 20:00 87 04/18/17 19:00 100 Room Air 04/18/17 18:00 93 04/18/17 16:00 82 04/18/17 16:00 97.6 87 15 142/75 (97) 100 04/18/17 14:00 82 04/18/17 12:00 97.4 80 15 165/81 (109) 100 I/O 04/18/17 04/18/17 04/18/17 04/19/17 04/19/17 04/19/17 07:00 15:00 23:00 07:00 15:00 23:00 Intake Total 784 ml 2621 ml 530 ml Output Total 600 ml 2600 ml Balance 184 ml 21 ml 530 ml Intake Oral 30 ml 480 ml 420 ml IV Total 754 ml 2141 ml 110 ml Output Urine Total 600 ml 2600 ml # Voids 3 # Bowel Movements 2 Physical Exam GENERAL: NAD, AAOx3 SKIN: Warm and dry. HEAD: Atraumatic. Normocephalic. EYES: Pupils equal and round. No scleral icterus. No injection or drainage. ENT: No nasal bleeding or discharge. Mucous membranes pink and moist. NECK: Trachea midline. No JVD. CARDIOVASCULAR: Regular rate and rhythm. No murmurs RESPIRATORY: No accessory muscle use. Clear to auscultation. Breath sounds equal bilaterally. GASTROINTESTINAL: Abdomen soft, non-tender, nondistended. Hepatic and splenic margins not palpable. MUSCULOSKELETAL: Extremities without clubbing, cyanosis, or edema. No obvious deformities. Right femoral no hematoma/bruit NEUROLOGICAL: Awake and alert. No obvious cranial nerve deficits. Motor grossly within normal limits. Five out of 5 muscle strength in the arms and legs. Normal speech. PSYCHIATRIC: Appropriate mood and affect; insight and judgment normal. Laboratory Laboratory Tests Test 04/18/17 14:15 04/19/17 05:32 Blood Urea Nitrogen 10 MG/DL 7 MG/DL Creatinine 0.98 MG/DL 0.57 MG/DL Random Glucose 185 MG/DL 27 MG/DL Total Protein 4.7 GM/DL 4.3 GM/DL Calcium Level 6.3 MG/DL 6.2 MG/DL Sodium Level 143 MEQ/L 142 MEQ/L Potassium Level 4.1 MEQ/L 3.5 MEQ/L Chloride Level 114 MEQ/L 113 MEQ/L Carbon Dioxide Level 16.2 MEQ/L 21.6 MEQ/L Anion Gap 13 MEQ/L 7 MEQ/L Estimat Glomerular Filtration Rate 78 ML/MIN 146 ML/MIN Protein Corrected Calcium 7.5 MG/DL 7.6 MG/DL White Blood Count 7.7 TH/MM3 Red Blood Count 2.93 MIL/MM3 Hemoglobin 9.4 GM/DL Hematocrit 27.8 % Mean Corpuscular Volume 94.8 FL Mean Corpuscular Hemoglobin 31.9 PG Mean Corpuscular Hemoglobin Concent 33.7 % Red Cell Distribution Width 14.6 % Platelet Count 100 TH/MM3 Mean Platelet Volume 8.4 FL Neutrophils (%) (Auto) 59.2 % Lymphocytes (%) (Auto) 32.5 % Monocytes (%) (Auto) 5.6 % Eosinophils (%) (Auto) 2.1 % Basophils (%) (Auto) 0.6 % Neutrophils # (Auto) 4.6 TH/MM3 Lymphocytes # (Auto) 2.5 TH/MM3 Monocytes # (Auto) 0.4 TH/MM3 Eosinophils # (Auto) 0.2 TH/MM3 Basophils # (Auto) 0.0 TH/MM3 CBC Comment DIFF FINAL Differential Comment Assessment and Plan Problem List: (1) DKA (diabetic ketoacidoses) ICD Codes: E13.10 - Other specified diabetes mellitus with ketoacidosis without coma Status: Acute (2) NSTEMI (non-ST elevated myocardial infarction) ICD Codes: I21.4 - Non-ST elevation (NSTEMI) myocardial infarction Status: Acute (3) CAD (coronary artery disease) ICD Codes: I25.10 - Atherosclerotic heart disease of [place] coronary artery without angina pectoris Status: Chronic (4) Hx of CABG ICD Codes: Z95.1 - Presence of aortocoronary bypass graft (5) Impaired mobility and activities of daily living ICD Codes: Z74.09 - Other reduced mobility Status: Acute (6) Acute kidney insufficiency ICD Codes: N28.9 - Disorder of kidney and ureter, unspecified; B96.89 - Other specified bacterial agents as the cause of diseases classified elsewhere Status: Acute (7) HTN (hypertension) ICD Codes: I10 - Essential (primary) hypertension Status: Acute Assessment and Plan 1) DKA on presentation Management per primary 2) NSTEMI s/p cardiac catheterization, no lesions for intervention Most likely Type 2 spill CABGx4 (3/4 patent, with jump graft to PLB occluded) [place] vessels severely diseased and overall around 1.5mm, not suitable for intervention 3) Con't medical management ASA/Plavix/BB therapy Added statin therapy Needs blood sugar control Anupam Richter DO Apr 19, 2017 11:46
[2017-04-19] MEDS: ALUMINUM/MAGNESIUM/SIMETH 30 ML CUP PO PRN (17:11)
[2017-04-19 17:37] LABS: BLOOD, URINE NEG (NEG); GLUCOSE,URINE 1000 mg/dL (NEG); KETONE, URINE NEG (NEG); NITRITE,URINE NEG (NEG); URINE COLOR LIGHT-YELLOW (YELLW/STRAW)
[2017-04-19 17:38] LABS: COMMENT (UR) CULT NOT INDICATED; CULTURE IF INDICATED CULT NOT INDICATED
[2017-04-19] MEDS: NORTRIPTYLINE HCL 25 MG CAP PO SCH (20:51)
[2017-04-19] MEDS: ATORVASTATIN 80 MG TAB PO SCH (20:51)
[2017-04-20] VITALS (8 sets, daily range): BP systolic 118–150; BP diastolic 65–76; PULSE 78–97; RESP 16–17; TEMP 96.2–98.1; O2SAT 98–100
[2017-04-20] MEDS: SODIUM CHLOR 0.9% 1000 ML INJ 1,000 ML IV SCH ×3 (03:30→20:32)
[2017-04-20] MEDS: LEVOTHYROXINE SODIUM 100 MCG TAB PO SCH (05:59)
[2017-04-20 06:57] LABS: HEMATOCRIT 28.1 % (39.0-51.0); MEAN CELL VOLUME 94.9 FL (80.0-100.0); MEAN CORPUSCULAR HEMOGLOBIN 31.9 PG (27.0-34.0); MEAN CORPUSCULAR HGB CONC 33.6 % (32.0-36.0); PLATELET COUNT 104 TH/MM3 (150-450); RED BLOOD COUNT 2.96 MIL/MM3 (4.50-5.90); RED CELL DISTRIBUTION WIDTH 14.5 % (11.6-17.2); REVIEW FLAG FINAL; WHITE BLOOD COUNT 6.6 TH/MM3 (4.0-11.0)
[2017-04-20 07:19] LABS: BICARBONATE 19.9 MEQ/L (21.0-32.0); POTASSIUM 4.2 MEQ/L (3.5-5.1)
[2017-04-20 07:34] LABS: CALCIUM-PROTEIN CORRECTED 7.9 MG/DL (8.5-10.1)
[2017-04-20] MEDS: CYANOCOBALAMIN 1,000 MCG TAB PO SCH (07:46)
[2017-04-20] MEDS: LISINOPRIL 10 MG TAB PO SCH ×2 (07:47→20:36)
[2017-04-20] MEDS: PANTOPRAZOLE SOD 40 MG DELAYED RELEASE TAB PO SCH (07:47)
[2017-04-20] MEDS: CARVEDILOL 6.25 MG TAB PO SCH ×2 (07:47→20:36)
[2017-04-20] MEDS: amLODIPine BESYLATE 5 MG TAB PO SCH (07:47)
[2017-04-20] MEDS: ASPIRIN EC 81 MG TABEC PO SCH (07:48)
[2017-04-20] MEDS: CLOPIDOGREL 75 MG TAB PO SCH (07:48)
[2017-04-20] MEDS: PREGABALIN 75 MG CAP PO SCH ×3 (07:48→17:25)
[2017-04-20] MEDS: ENOXAPARIN SODIUM 40 MG/0.4 ML SYRINGE SQ SCH (07:49)
[2017-04-20] MEDS: INSULIN ASPART SUPPLEMENTAL SCALE SQ SCH ×4 (07:49→20:36)
[2017-04-20] MEDS: INSULIN DETEMIR 100 UNITS/ML VIAL SQ SCH (07:49)
[2017-04-20] MEDS: SODIUM CHLORIDE 0.9% FLUSH 10 ML FLUSH IV FLUSH SCH ×2 (07:57→20:37)
--- NOTE | 2017-04-20 10:20 | HHI.FF ---
Face to Face Verification Diagnosis: (1) DKA (diabetic ketoacidoses) Home Health Nursing Order: Medical education Signs/symptoms of disease process Diabetic education Medication education-adverse effect Nursing assessment with vital signs I have seen patient Ezio Aragon on 04/20/17. My clinical findings support the need for the requested home health care services because: Ltd mobility - disease progression I certify that my clinical findings support that this patient is homebound because: Unsteady gait/balance Debra Tinsley MD Apr 20, 2017 10:20
--- NOTE | 2017-04-20 10:20 | HHI.PR ---
Subjective Remarks in no acute distress. has some back pain. no chest pain or sob. blood sugar trend noted. d/w the RN and at the bedside. Objective Vitals Vital Signs Date Time Temp Pulse Resp B/P (MAP) Pulse Ox O2 Delivery O2 Flow Rate FiO2 04/20/17 08:59 16 04/20/17 08:00 97.5 97 17 134/75 (94) 100 04/20/17 03:55 98.1 87 16 120/67 (84) 98 04/19/17 22:20 97.8 96 17 142/83 (102) 99 04/19/17 20:11 99 21 04/19/17 20:00 98.4 92 22 144/77 (99) 100 04/19/17 20:00 87 04/19/17 19:00 100 Room Air 04/19/17 18:00 93 04/19/17 16:00 85 04/19/17 16:00 98.5 85 16 141/75 (97) 100 04/19/17 14:00 82 04/19/17 12:00 80 04/19/17 12:00 98.7 80 20 126/69 (88) 98 I/O 04/19/17 04/19/17 04/19/17 04/20/17 04/20/17 04/20/17 07:00 15:00 23:00 07:00 15:00 23:00 Intake Total 530 ml 1312 ml 550 ml Output Total 1225 ml Balance 530 ml 87 ml 550 ml Intake Oral 420 ml 460 ml 550 ml IV Total 110 ml 852 ml Output Urine Total 1225 ml # Voids 3 2 3 # Bowel Movements 2 2 Result Diagram: 04/20/1718 04/20/1718 Imaging Last Impressions Chest CT 04/17/17 0000 Signed Impressions: Service Date/Time: Monday, April 17, 2017 01:29 - CONCLUSION: 1. Scattered subcentimeter nodules and mild infectious/inflammatory appearing infiltrate of both lungs seen in the setting of mild emphysema and mild bronchiectasis. No large or dense consolidation. No cavitary changes. 6 month followup noncontrast chest CT is recommended. 2. Previous cabbage. Normal heart size. 3. No adenopathy. 4. Old fractures of the left scapula and several left ribs. Ramon Gale MD Chest X-Ray 04/16/17 3657 Signed Impressions: Service Date/Time: Sunday, April 16, 2017 22:01 - CONCLUSION: Questionable 1.6 cm focal lucency. A cavitary lesion cannot be excluded. A noncontrast CT examination of the chest could be performed for further evaluation. Ramon Arreguin MD Objective Remarks GENERAL: in no apparent distress. CARDIOVASCULAR: Regular rate and regular rhythm without murmurs, gallops, or rubs. RESPIRATORY: Clear to auscultation. Breath sounds equal bilaterally. No wheezes , rales, or rhonchi. GASTROINTESTINAL: Abdomen soft, non-tender, nondistended. Normal, active bowel sounds MUSCULOSKELETAL: Extremities without clubbing, cyanosis, or edema. NEURO: Alert & Oriented x4 to person, place, time, situation. Moves all ext x4 Procedures cardiac cath. Medications and IVs Current Medications Sodium Chloride 1,000 ml @ 1,000 mls/hr Q1H ONCE IV Last administered on 22:45; Start 04/16/17 at 22:00; Stop 04/16/17 at 22:59; Status DC Ondansetron HCl (Zofran Inj) 4 mg ONCE ONCE IV Last administered on 04/16/17 22:46; Start 04/16/17 at 22:00; Stop 04/16/17 at 22:02; Status DC Sodium Chloride 1,000 ml @ 250 mls/hr Q4H IV Last administered on 04/17/17 07 :06; Start 04/16/17 at 22:52; Stop 04/17/17 at 13:50; Status DC Dextrose/Sodium Chloride 1,000 ml @ 200 mls/hr Q5H IV Last administered on 09:52; Start 04/16/17 at 22:52; Stop 04/18/17 at 15:34; Status DC Insulin Human Regular (NovoLIN R INJ) 4 units BOLUS ONCE IV PUSH Last administered on 04/17/17 00:57; Start 04/16/17 at 23:00; Stop 04/16/17 at 23:01 ; Status DC Insulin Human Regular 100 units/ Sodium Chloride 100 ml @ 0 mls/hr TITRATE PRN IV Blood Sugar Management; Start 04/16/17 at 23:00; Status UNV Potassium Chloride 100 ml @ 100 mls/hr Q1H PRN IV SEE LABEL COMMENTS; Start 04/16/17 at 23:00; Stop 04/18/17 at 15:34; Status DC Potassium Chloride 100 ml @ 50 mls/hr Q2H PRN IV SEE LABEL COMMENTS; Start at 23:00; Stop 04/18/17 at 15:34; Status DC Potassium Chloride 100 ml @ 100 mls/hr Q1H PRN IV SEE LABEL COMMENTS; Start 04/16/17 at 23:00; Stop 04/18/17 at 15:35; Status DC Potassium Chloride 100 ml @ 100 mls/hr Q1H PRN IV SEE LABEL COMMENTS; Start 04/16/17 at 23:00; Stop 04/18/17 at 15:35; Status DC Potassium Chloride 100 ml @ 50 mls/hr Q2H PRN IV SEE LABEL COMMENTS; Start at 23:00; Stop 04/18/17 at 15:35; Status DC Potassium Chloride 100 ml @ 50 mls/hr Q2H PRN IV SEE LABEL COMMENTS; Start at 23:00; Stop 04/18/17 at 15:35; Status DC Potassium Chloride 100 ml @ 50 mls/hr Q2H PRN IV SEE LABEL COMMENTS; Start at 23:00; Stop 04/18/17 at 15:35; Status DC Potassium Chloride 100 ml @ 50 mls/hr Q2H PRN IV SEE LABEL COMMENTS; Start at 23:00; Stop 04/18/17 at 15:35; Status DC Sodium Bicarbonate (Sodium Bicarbonate 8.4% Inj) 100 meq UNSCH PRN IV PUSH SEE LABEL COMMENTS; Start 04/16/17 at 23:00; Stop 04/18/17 at 15:35; Status DC Sodium Bicarbonate (Sodium Bicarbonate 8.4% Inj) 50 meq UNSCH PRN IV PUSH SEE LABEL COMMENTS; Start 04/16/17 at 23:00; Stop 04/18/17 at 15:35; Status DC Sodium Phosphate 15 mmol/Sodium Chloride 105 ml @ 25 mls/hr UNSCH PRN IV SEE LABEL COMMENTS; Start 04/16/17 at 23:00; Stop 04/18/17 at 15:35; Status DC Insulin Human Regular 100 units/ Sodium Chloride 100 ml @ 0 mls/hr TITRATE PRN IV Blood Sugar Management; Start 04/17/17 at 00:45; Status UNV Insulin Human Regular 100 units/ Sodium Chloride 100 ml @ 8.25 mls/hr TITRATE IV Last administered on 04/17/17 02:32; Start 04/17/17 at 01:15; Stop at 14:03; Status DC Sodium Chloride 1,000 ml @ 100 mls/hr Q10H IV ; Start 04/17/17 at 01:17; Stop 04/17/17 at 01:20; Status DC Sodium Chloride (NS Flush) 2 ml UNSCH PRN IV FLUSH FLUSH AFTER USING IV ACCESS ; Start 04/17/17 at 01:30 Sodium Chloride (NS Flush) 2 ml BID IV FLUSH Last administered on 04/20/17 07: 57; Start 04/17/17 at 09:00 Naloxone HCl (Narcan Inj) 0.4 mg UNSCH PRN IV PUSH SEE LABEL COMMENTS; Start 04/17/17 at 01:30 Sodium Chloride 1,000 ml @ 999 mls/hr BOLUS ONCE IV Last administered on 04/17 01:51; Start 04/17/17 at 01:30; Stop 04/17/17 at 02:30; Status DC Aspirin (Aspirin Chew) 324 mg ONCE ONCE CHEW ; Start 04/17/17 at 04:30; Stop 04/17/17 at 04:33; Status DC Nitroglycerin (Nitroglycerin 2% Oint) 1 inch ONCE ONCE TOPICAL ; Start at 04:30; Stop 04/17/17 at 04:33; Status DC Pneumococcal Polyvalent Vaccine (Pneumovax-23 Inj) 25 mcg ONCE ONCE IM Last administered on 04/18/17 16:05; Start 04/18/17 at 10:00; Stop 04/18/17 at 10:01 ; Status DC Amlodipine Besylate (Norvasc) 5 mg DAILY PO Last administered on 04/20/17 07: 47; Start 04/17/17 at 09:00 Aspirin (Aspirin) 325 mg DAILY PO ; Start 04/17/17 at 09:00; Stop 04/17/17 at 09 :00; Status DC Carvedilol (Coreg) 6.25 mg BID PO Last administered on 04/20/17 07:47; Start 04/17/17 at 09:00 Clopidogrel Bisulfate (Plavix) 75 mg DAILY PO Last administered on 04/20/17 07 :48; Start 04/17/17 at 09:00 Levothyroxine Sodium (Synthroid) 100 mcg DAILY@06 PO Last administered on 05:59; Start 04/18/17 at 06:00 Lisinopril (Prinivil) 10 mg Q12HR PO Last administered on 04/20/17 07:47; Start 04/17/17 at 09:00 Nortriptyline HCl (Pamelor) 75 mg HS PO Last administered on 04/19/17 20:51; Start 04/17/17 at 21:00 Pregabalin (Lyrica) 75 mg TID PO Last administered on 04/20/17 07:48; Start 04/17/17 at 09:00 Cyanocobalamin (Vitamin B12) 1,000 mcg DAILY PO Last administered on 04/20/17 07:46; Start 04/17/17 at 09:00 Heparin Sodium (Porcine) (Heparin Inj) 7,000 units ONCE ONCE IV PUSH ; Start 04/17/17 at 08:00; Stop 04/18/17 at 13:02; Status DC Heparin Sodium (Porcine) (Heparin Inj) 3,600 units NOW ONCE IV PUSH Last administered on 04/17/17 13:37; Start 04/17/17 at 14:00; Stop 04/18/17 at 13:02 ; Status DC Heparin Sodium (Porcine) (Heparin Inj) 2,500 units UNSCH PRN IV PUSH APTT 25 TO 39 Last administered on 04/18/17 01:28; Start 04/17/17 at 14:00; Stop at 13:02; Status DC Heparin Sodium/ Dextrose 250 ml @ 7.2 mls/hr TITRATE PRN IV Coagulation management Last administered on 04/17/17 11:15; Start 04/17/17 at 08:00; Stop 04/18/17 at 13:01; Status DC Aspirin (Ecotrin Ec) 81 mg DAILY PO Last administered on 04/20/17 07:48; Start 04/17/17 at 09:00 Nitroglycerin (Nitrostat Sl) 0.4 mg Q5M PRN SL CHEST PAIN; Start 04/17/17 at 08 :15 Heparin Sodium (Porcine) (Heparin Inj) 5,000 units UNSCH PRN IV PUSH APTT<25 - APTT LESS THAN 25; Start 04/17/17 at 10:15; Stop 04/18/17 at 13:03; Status DC Midazolam HCl (Versed Inj) 2 mg STK-MED ONCE .ROUTE ; Start 04/18/17 at 11:48; Stop 04/18/17 at 11:49; Status DC Fentanyl Citrate (fentaNYL INJ) 100 mcg STK-MED ONCE .ROUTE ; Start 04/18/17 at 11:48; Stop 04/18/17 at 11:49; Status DC Heparin Sodium/ Sodium Chloride 1,000 ml @ As Directed STK-MED ONCE .ROUTE ; Start 04/18/17 at 11:48; Stop 04/18/17 at 11:49; Status DC Sodium Chloride 500 ml @ As Directed STK-MED ONCE .ROUTE ; Start 04/18/17 at 11 :48; Stop 04/18/17 at 11:49; Status DC Miscellaneous Information 1 ONCE ONCE XX Last administered on 04/18/17 12:45 ; Start 04/18/17 at 12:45; Stop 04/18/17 at 13:00; Status DC Atorvastatin Calcium (Lipitor) 80 mg HS PO Last administered on 04/19/17 20:51 ; Start 04/18/17 at 21:00 Insulin Human Regular 100 units/ Sodium Chloride 100 ml @ 6.62 mls/hr TITRATE IV ; Start 04/18/17 at 14:00; Stop 04/18/17 at 15:32; Status DC Insulin Detemir (Levemir Inj) 10 units BID SQ Last administered on 04/18/17 22 :38; Start 04/18/17 at 15:45; Stop 04/19/17 at 10:12; Status DC Dextrose (D50w (Vial) Inj) 50 ml UNSCH PRN IV PUSH HYPOGLYCEMIA-SEE COMMENTS; Start 04/18/17 at 15:45 Glucagon (Glucagon Inj) 1 mg UNSCH PRN OTHER HYPOGLYCEMIA-SEE COMMENTS; Start 04/18/17 at 15:45 Insulin Aspart (NovoLOG SUPPLEMENTAL SCALE) 1 ACHS SLIDING SCALE SQ Last administered on 04/20/17 07:49; Start 04/18/17 at 17:00 Sodium Chloride 1,000 ml @ 84 mls/hr [id number] IV Last administered on 15:35; Start 04/18/17 at 15:45 Insulin Detemir (Levemir Inj) 10 units DAILY SQ Last administered on 04/20/17 07:49; Start 04/20/17 at 09:00 Enoxaparin Sodium (Lovenox Inj) 40 mg Q24H SQ Last administered on 04/20/17 07 :49; Start 04/20/17 at 09:00 Pantoprazole Sodium (Protonix) 40 mg DAILY PO Last administered on 04/20/17 07 :47; Start 04/20/17 at 09:00 Al Hydrox/Mg Hydrox/Simethicone (Mag-Al Plus Susp Liq) 15 ml Q6H PRN PO HEARTBURN Last administered on 04/19/17 17:11; Start 04/19/17 at 17:00 A/P Assessment and Plan A/P - DKA- resolved - however with fluctuating blood sugar levels. continue levemir to 10 units subq daily- continue with accu-check and SSI. A1c 8.9 -ACS with history of CAD- s/p CABG s/p cardiac cath with : no lesions for intervention CABGx4 (3/4 patent, with jump graft to PLB occluded) [place] vessels severely diseased and overall around 1.5mm, not suitable for intervention continue aspirin, plavix , statin and coreg- cardiology consult appreciated . d/w and no further cardiac work-up needed at this time. -acute kidney injury/ hyperkalemia- improved continue to monitor. -hyponatremia- due to hyperglycemia- has improved -COPD with no exacerbation/lung nodule- f/u as outpatient- neb treatment as needed -DVT prophylaxis; subq Lovenox transfer to telemetry this afternoon if stable. consult PT. Discharge Planning dc home with [facility] within the next 24-48 hrs if blood sugar levels stable. d/w the RN and case management. outpatient PT. Debra Tinsley MD Apr 20, 2017 10:20
--- NOTE | 2017-04-20 11:46 | PD.CARD.PN ---
Subjective Subjective Remarks Doing well, no complaints No chest pain/SOB Objective Medications Current Medications Medications (Trade) Dose Ordered Sig/Nuzhat Route Start Time Stop Time Status Last Admin (NS Flush) 2 ml UNSCH PRN IV FLUSH 04/17/17 01:30 (NS Flush) 2 ml BID IV FLUSH 04/17/17 09:00 04/20/17 07:57 (Narcan Inj) 0.4 mg UNSCH PRN IV PUSH 04/17/17 01:30 (Norvasc) 5 mg DAILY PO 04/17/17 09:00 04/20/17 07:47 (Coreg) 6.25 mg BID PO 04/17/17 09:00 04/20/17 07:47 (Plavix) 75 mg DAILY PO 04/17/17 09:00 04/20/17 07:48 (Synthroid) 100 mcg DAILY@06 PO 04/18/17 06:00 04/20/17 05:59 (Prinivil) 10 mg Q12HR PO 04/17/17 09:00 04/20/17 07:47 (Pamelor) 75 mg HS PO 04/17/17 21:00 04/19/17 20:51 (Lyrica) 75 mg TID PO 04/17/17 09:00 04/20/17 07:48 (Vitamin B12) 1,000 mcg DAILY PO 04/17/17 09:00 04/20/17 07:46 (Ecotrin Ec) 81 mg DAILY PO 04/17/17 09:00 04/20/17 07:48 (Nitrostat Sl) 0.4 mg Q5M PRN SL 04/17/17 08:15 (Lipitor) 80 mg HS PO 04/18/17 21:00 04/19/17 20:51 (D50w (Vial) Inj) 50 ml UNSCH PRN IV PUSH 04/18/17 15:45 (Glucagon Inj) 1 mg UNSCH PRN OTHER 04/18/17 15:45 (NovoLOG SUPPLEMENTAL SCALE) 1 ACHS SLIDING SCALE SQ 04/18/17 17:00 04/20/17 07:49 Sodium Chloride 1,000 ml @ 84 mls/hr [id number] IV 04/18/17 15:45 04/19/17 15:35 (Levemir Inj) 10 units DAILY SQ 04/20/17 09:00 04/20/17 07:49 (Lovenox Inj) 40 mg Q24H SQ 04/20/17 09:00 04/20/17 07:49 (Protonix) 40 mg DAILY PO 04/20/17 09:00 04/20/17 07:47 (Mag-Al Plus Susp Liq) 15 ml Q6H PRN PO 04/19/17 17:00 04/19/17 17:11 Vital Signs / I&O Vital Signs Date Time Temp Pulse Resp B/P (MAP) Pulse Ox O2 Delivery O2 Flow Rate FiO2 04/20/17 10:24 100 04/20/17 08:59 16 04/20/17 08:00 97.5 97 17 134/75 (94) 100 04/20/17 03:55 98.1 87 16 120/67 (84) 98 04/19/17 22:20 97.8 96 17 142/83 (102) 99 04/19/17 20:11 99 21 04/19/17 20:00 98.4 92 22 144/77 (99) 100 04/19/17 20:00 87 04/19/17 19:00 100 Room Air 04/19/17 18:00 93 04/19/17 16:00 85 04/19/17 16:00 98.5 85 16 141/75 (97) 100 04/19/17 14:00 82 04/19/17 12:00 80 04/19/17 12:00 98.7 80 20 126/69 (88) 98 I/O 04/19/17 04/19/17 04/19/17 04/20/17 04/20/17 04/20/17 07:00 15:00 23:00 07:00 15:00 23:00 Intake Total 530 ml 1312 ml 550 ml Output Total 1225 ml Balance 530 ml 87 ml 550 ml Intake Oral 420 ml 460 ml 550 ml IV Total 110 ml 852 ml Output Urine Total 1225 ml # Voids 3 2 3 # Bowel Movements 2 2 Physical Exam GENERAL: NAD, AAOx3 SKIN: Warm and dry. HEAD: Atraumatic. Normocephalic. EYES: Pupils equal and round. No scleral icterus. No injection or drainage. ENT: No nasal bleeding or discharge. Mucous membranes pink and moist. NECK: Trachea midline. No JVD. CARDIOVASCULAR: Regular rate and rhythm. No murmurs RESPIRATORY: No accessory muscle use. Clear to auscultation. Breath sounds equal bilaterally. GASTROINTESTINAL: Abdomen soft, non-tender, nondistended. Hepatic and splenic margins not palpable. MUSCULOSKELETAL: Extremities without clubbing, cyanosis, or edema. No obvious deformities. Right femoral no hematoma/bruit NEUROLOGICAL: Awake and alert. No obvious cranial nerve deficits. Motor grossly within normal limits. Five out of 5 muscle strength in the arms and legs. Normal speech. PSYCHIATRIC: Appropriate mood and affect; insight and judgment normal. Laboratory Laboratory Tests Test 04/19/17 17:20 04/20/17 06:18 Urine Color LIGHT-YELLOW Urine Turbidity CLEAR Urine pH 6.0 Urine Specific [place] 1.013 Urine Protein NEG mg/dL Urine Glucose (UA) 1000 mg/dL Urine Ketones NEG mg/dL Urine Occult Blood NEG Urine Nitrite NEG Urine Bilirubin NEG Urine Urobilinogen LESS THAN 2.0 MG/DL Urine Leukocyte Esterase NEG Urine WBC LESS THAN 1 /hpf Microscopic Urinalysis Comment CULT NOT INDICATED White Blood Count 6.6 TH/MM3 Red Blood Count 2.96 MIL/MM3 Hemoglobin 9.4 GM/DL Hematocrit 28.1 % Mean Corpuscular Volume 94.9 FL Mean Corpuscular Hemoglobin 31.9 PG Mean Corpuscular Hemoglobin Concent 33.6 % Red Cell Distribution Width 14.5 % Platelet Count 104 TH/MM3 Mean Platelet Volume 8.5 FL Blood Urea Nitrogen 11 MG/DL Creatinine 0.52 MG/DL Random Glucose 424 MG/DL Total Protein 4.7 GM/DL Calcium Level 6.7 MG/DL Sodium Level 134 MEQ/L Potassium Level 4.2 MEQ/L Chloride Level 102 MEQ/L Carbon Dioxide Level 19.9 MEQ/L Anion Gap 12 MEQ/L Estimat Glomerular Filtration Rate 163 ML/MIN Protein Corrected Calcium 7.9 MG/DL Assessment and Plan Problem List: (1) DKA (diabetic ketoacidoses) ICD Codes: E13.10 - Other specified diabetes mellitus with ketoacidosis without coma Status: Acute (2) NSTEMI (non-ST elevated myocardial infarction) ICD Codes: I21.4 - Non-ST elevation (NSTEMI) myocardial infarction Status: Acute (3) CAD (coronary artery disease) ICD Codes: I25.10 - Atherosclerotic heart disease of [place] coronary artery without angina pectoris Status: Chronic (4) Hx of CABG ICD Codes: Z95.1 - Presence of aortocoronary bypass graft (5) Impaired mobility and activities of daily living ICD Codes: Z74.09 - Other reduced mobility Status: Acute (6) Acute kidney insufficiency ICD Codes: N28.9 - Disorder of kidney and ureter, unspecified; B96.89 - Other specified bacterial agents as the cause of diseases classified elsewhere Status: Acute (7) HTN (hypertension) ICD Codes: I10 - Essential (primary) hypertension Status: Acute Assessment and Plan 1) DKA on presentation Management per primary 2) NSTEMI s/p cardiac catheterization, no lesions for intervention Most likely Type 2 spill CABGx4 (3/4 patent, with jump graft to PLB occluded) [place] vessels severely diseased and overall around 1.5mm, not suitable for intervention 3) Con't medical management ASA/Plavix/BB therapy Added statin therapy Needs blood sugar control 4) Will see PRN, call with questions Anupam Richter DO Apr 20, 2017 11:46
[2017-04-20] MEDS ORDERED: ACETAMINOPHEN 325 MG TAB PO PRN (16:45)
[2017-04-20] MEDS: ACETAMINOPHEN/HYDROcodone 325 MG/5 MG TAB PO PRN ×2 (17:24→23:40)
[2017-04-20] MEDS: ATORVASTATIN 80 MG TAB PO SCH (20:36)
[2017-04-20] MEDS: NORTRIPTYLINE HCL 25 MG CAP PO SCH (20:38)
[2017-04-21] VITALS (7 sets, daily range): BP systolic 110–153; BP diastolic 63–71; PULSE 79–95; RESP 17–18; TEMP 96.5–97.6; O2SAT 99–100
[2017-04-21] MEDS: ACETAMINOPHEN/HYDROcodone 325 MG/5 MG TAB PO PRN ×4 (05:58→23:52)
[2017-04-21] MEDS: LEVOTHYROXINE SODIUM 100 MCG TAB PO SCH (05:59)
[2017-04-21] MEDS: INSULIN ASPART SUPPLEMENTAL SCALE SQ SCH ×4 (08:00→21:04)
--- NOTE | 2017-04-21 08:45 | HHI.PR ---
Subjective Remarks in no acute distress. denies pain. looks and feels better today. blood sugar trend noted. d/w the RN and no acute issues over night. Objective Vitals Vital Signs Date Time Temp Pulse Resp B/P (MAP) Pulse Ox O2 Delivery O2 Flow Rate FiO2 04/21/17 04:00 97.6 88 17 144/71 (95) 99 04/20/17 23:37 97.1 78 16 123/65 (84) 99 04/20/17 20:29 87 04/20/17 20:00 97.2 96 17 150/76 (100) 98 04/20/17 18:25 16 04/20/17 18:25 16 04/20/17 16:00 96.3 79 17 118/70 (86) 100 04/20/17 12:00 96.2 88 17 119/67 (84) 100 04/20/17 10:24 100 I/O 04/20/17 04/20/17 04/20/17 04/21/17 04/21/17 04/21/17 07:00 15:00 23:00 07:00 15:00 23:00 Intake Total 550 ml 840 ml 720 ml 600 ml Balance 550 ml 840 ml 720 ml 600 ml Intake Oral 550 ml 840 ml 720 ml 600 ml # Voids 3 3 2 2 # Bowel Movements 1 Result Diagram: 04/20/17 0618 04/20/17 0618 Imaging Last Impressions Chest CT 04/17/17 0000 Signed Impressions: Service Date/Time: Monday, April 17, 2017 01:29 - CONCLUSION: 1. Scattered subcentimeter nodules and mild infectious/inflammatory appearing infiltrate of both lungs seen in the setting of mild emphysema and mild bronchiectasis. No large or dense consolidation. No cavitary changes. 6 month followup noncontrast chest CT is recommended. 2. Previous cabbage. Normal heart size. 3. No adenopathy. 4. Old fractures of the left scapula and several left ribs. Ramon Gale MD Chest X-Ray 04/16/17 [id number] Signed Impressions: Service Date/Time: Sunday, April 16, 2017 22:01 - CONCLUSION: Questionable 1.6 cm focal lucency. A cavitary lesion cannot be excluded. A noncontrast CT examination of the chest could be performed for further evaluation. Ramon Arreguin MD Objective Remarks GENERAL: in no apparent distress. CARDIOVASCULAR: Regular rate and regular rhythm without murmurs, gallops, or rubs. RESPIRATORY: Clear to auscultation. Breath sounds equal bilaterally. No wheezes , rales, or rhonchi. GASTROINTESTINAL: Abdomen soft, non-tender, nondistended. Normal, active bowel sounds MUSCULOSKELETAL: Extremities without clubbing, cyanosis, or edema. NEURO: Alert & Oriented x4 to person, place, time, situation. Moves all ext x4 Procedures cardiac cath. Medications and IVs Current Medications Sodium Chloride 1,000 ml @ 1,000 mls/hr Q1H ONCE IV Last administered on 22:45; Start 04/16/17 at 22:00; Stop 04/16/17 at 22:59; Status DC Ondansetron HCl (Zofran Inj) 4 mg ONCE ONCE IV Last administered on 04/16/17 22:46; Start 04/16/17 at 22:00; Stop 04/16/17 at 22:02; Status DC Sodium Chloride 1,000 ml @ 250 mls/hr Q4H IV Last administered on 04/17/17 07 :06; Start 04/16/17 at 22:52; Stop 04/17/17 at 13:50; Status DC Dextrose/Sodium Chloride 1,000 ml @ 200 mls/hr Q5H IV Last administered on 09:52; Start 04/16/17 at 22:52; Stop 04/18/17 at 15:34; Status DC Insulin Human Regular (NovoLIN R INJ) 4 units BOLUS ONCE IV PUSH Last administered on 04/17/17 00:57; Start 04/16/17 at 23:00; Stop 04/16/17 at 23:01 ; Status DC Insulin Human Regular 100 units/ Sodium Chloride 100 ml @ 0 mls/hr TITRATE PRN IV Blood Sugar Management; Start 04/16/17 at 23:00; Status UNV Potassium Chloride 100 ml @ 100 mls/hr Q1H PRN IV SEE LABEL COMMENTS; Start 04/16/17 at 23:00; Stop 04/18/17 at 15:34; Status DC Potassium Chloride 100 ml @ 50 mls/hr Q2H PRN IV SEE LABEL COMMENTS; Start at 23:00; Stop 04/18/17 at 15:34; Status DC Potassium Chloride 100 ml @ 100 mls/hr Q1H PRN IV SEE LABEL COMMENTS; Start 04/16/17 at 23:00; Stop 04/18/17 at 15:35; Status DC Potassium Chloride 100 ml @ 100 mls/hr Q1H PRN IV SEE LABEL COMMENTS; Start 04/16/17 at 23:00; Stop 04/18/17 at 15:35; Status DC Potassium Chloride 100 ml @ 50 mls/hr Q2H PRN IV SEE LABEL COMMENTS; Start at 23:00; Stop 04/18/17 at 15:35; Status DC Potassium Chloride 100 ml @ 50 mls/hr Q2H PRN IV SEE LABEL COMMENTS; Start at 23:00; Stop 04/18/17 at 15:35; Status DC Potassium Chloride 100 ml @ 50 mls/hr Q2H PRN IV SEE LABEL COMMENTS; Start at 23:00; Stop 04/18/17 at 15:35; Status DC Potassium Chloride 100 ml @ 50 mls/hr Q2H PRN IV SEE LABEL COMMENTS; Start at 23:00; Stop 04/18/17 at 15:35; Status DC Sodium Bicarbonate (Sodium Bicarbonate 8.4% Inj) 100 meq UNSCH PRN IV PUSH SEE LABEL COMMENTS; Start 04/16/17 at 23:00; Stop 04/18/17 at 15:35; Status DC Sodium Bicarbonate (Sodium Bicarbonate 8.4% Inj) 50 meq UNSCH PRN IV PUSH SEE LABEL COMMENTS; Start 04/16/17 at 23:00; Stop 04/18/17 at 15:35; Status DC Sodium Phosphate 15 mmol/Sodium Chloride 105 ml @ 25 mls/hr UNSCH PRN IV SEE LABEL COMMENTS; Start 04/16/17 at 23:00; Stop 04/18/17 at 15:35; Status DC Insulin Human Regular 100 units/ Sodium Chloride 100 ml @ 0 mls/hr TITRATE PRN IV Blood Sugar Management; Start 04/17/17 at 00:45; Status UNV Insulin Human Regular 100 units/ Sodium Chloride 100 ml @ 8.25 mls/hr TITRATE IV Last administered on 04/17/17t 02:32; Start 04/17/17 at 01:15; Stop at 14:03; Status DC Sodium Chloride 1,000 ml @ 100 mls/hr Q10H IV ; Start 04/17/17 at 01:17; Stop 04/17/17 at 01:20; Status DC Sodium Chloride (NS Flush) 2 ml UNSCH PRN IV FLUSH FLUSH AFTER USING IV ACCESS ; Start 04/17/17 at 01:30 Sodium Chloride (NS Flush) 2 ml BID IV FLUSH Last administered on 04/20/17 20: 37; Start 04/17/17 at 09:00 Naloxone HCl (Narcan Inj) 0.4 mg UNSCH PRN IV PUSH SEE LABEL COMMENTS; Start 04/17/17 at 01:30 Sodium Chloride 1,000 ml @ 999 mls/hr BOLUS ONCE IV Last administered on 04/17 01:51; Start 04/17/17 at 01:30; Stop 04/17/17 at 02:30; Status DC Aspirin (Aspirin Chew) 324 mg ONCE ONCE CHEW ; Start 04/17/17 at 04:30; Stop 04/17/17 at 04:33; Status DC Nitroglycerin (Nitroglycerin 2% Oint) 1 inch ONCE ONCE TOPICAL ; Start at 04:30; Stop 04/17/17 at 04:33; Status DC Pneumococcal Polyvalent Vaccine (Pneumovax-23 Inj) 25 mcg ONCE ONCE IM Last administered on 04/18/17 16:05; Start 04/18/17 at 10:00; Stop 04/18/17 at 10:01 ; Status DC Amlodipine Besylate (Norvasc) 5 mg DAILY PO Last administered on 04/20/17 07: 47; Start 04/17/17 at 09:00 Aspirin (Aspirin) 325 mg DAILY PO ; Start 04/17/17 at 09:00; Stop 04/17/17 at 09 :00; Status DC Carvedilol (Coreg) 6.25 mg BID PO Last administered on 04/20/17 20:36; Start 04/17/17 at 09:00 Clopidogrel Bisulfate (Plavix) 75 mg DAILY PO Last administered on 04/20/17 07 :48; Start 04/17/17 at 09:00 Levothyroxine Sodium (Synthroid) 100 mcg DAILY@06 PO Last administered on 05:59; Start 04/18/17 at 06:00 Lisinopril (Prinivil) 10 mg Q12HR PO Last administered on 04/20/17 20:36; Start 04/17/17 at 09:00 Nortriptyline HCl (Pamelor) 75 mg HS PO Last administered on 04/20/17 20:38; Start 04/17/17 at 21:00 Pregabalin (Lyrica) 75 mg TID PO Last administered on 04/20/17 17:25; Start 04/17/17 at 09:00 Cyanocobalamin (Vitamin B12) 1,000 mcg DAILY PO Last administered on 04/20/17 07:46; Start 04/17/17 at 09:00 Heparin Sodium (Porcine) (Heparin Inj) 7,000 units ONCE ONCE IV PUSH ; Start 04/17/17 at 08:00; Stop 04/18/17 at 13:02; Status DC Heparin Sodium (Porcine) (Heparin Inj) 3,600 units NOW ONCE IV PUSH Last administered on 04/17/17 13:37; Start 04/17/17 at 14:00; Stop 04/18/17 at 13:02 ; Status DC Heparin Sodium (Porcine) (Heparin Inj) 2,500 units UNSCH PRN IV PUSH APTT 25 TO 39 Last administered on 04/18/17 01:28; Start 04/17/17 at 14:00; Stop at 13:02; Status DC Heparin Sodium/ Dextrose 250 ml @ 7.2 mls/hr TITRATE PRN IV Coagulation management Last administered on 04/17/17 11:15; Start 04/17/17 at 08:00; Stop 04/18/17 at 13:01; Status DC Aspirin (Ecotrin Ec) 81 mg DAILY PO Last administered on 04/20/17 07:48; Start 04/17/17 at 09:00 Nitroglycerin (Nitrostat Sl) 0.4 mg Q5M PRN SL CHEST PAIN; Start 04/17/17 at 08 :15 Heparin Sodium (Porcine) (Heparin Inj) 5,000 units UNSCH PRN IV PUSH APTT<25 - APTT LESS THAN 25; Start 04/17/17 at 10:15; Stop 04/18/17 at 13:03; Status DC Midazolam HCl (Versed Inj) 2 mg STK-MED ONCE .ROUTE ; Start 04/18/17 at 11:48; Stop 04/18/17 at 11:49; Status DC Fentanyl Citrate (fentaNYL INJ) 100 mcg STK-MED ONCE .ROUTE ; Start 04/18/17 at 11:48; Stop 04/18/17 at 11:49; Status DC Heparin Sodium/ Sodium Chloride 1,000 ml @ As Directed STK-MED ONCE .ROUTE ; Start 04/18/17 at 11:48; Stop 04/18/17 at 11:49; Status DC Sodium Chloride 500 ml @ As Directed STK-MED ONCE .ROUTE ; Start 04/18/17 at 11 :48; Stop 04/18/17 at 11:49; Status DC Miscellaneous Information 1 ONCE ONCE XX Last administered on 04/18/17 12:45 ; Start 04/18/17 at 12:45; Stop 04/18/17 at 13:00; Status DC Atorvastatin Calcium (Lipitor) 80 mg HS PO Last administered on 04/20/17 20:36 ; Start 04/18/17 at 21:00 Insulin Human Regular 100 units/ Sodium Chloride 100 ml @ 6.62 mls/hr TITRATE IV ; Start 04/18/17 at 14:00; Stop 04/18/17 at 15:32; Status DC Insulin Detemir (Levemir Inj) 10 units BID SQ Last administered on 04/18/17 22 :38; Start 04/18/17 at 15:45; Stop 04/19/17 at 10:12; Status DC Dextrose (D50w (Vial) Inj) 50 ml UNSCH PRN IV PUSH HYPOGLYCEMIA-SEE COMMENTS; Start 04/18/17 at 15:45 Glucagon (Glucagon Inj) 1 mg UNSCH PRN OTHER HYPOGLYCEMIA-SEE COMMENTS; Start 04/18/17 at 15:45 Insulin Aspart (NovoLOG SUPPLEMENTAL SCALE) 1 ACHS SLIDING SCALE SQ Last administered on 04/20/17 20:36; Start 04/18/17 at 17:00 Sodium Chloride 1,000 ml @ 84 mls/hr [id number] IV Last administered on 15:35; Start 04/18/17 at 15:45 Insulin Detemir (Levemir Inj) 10 units DAILY SQ Last administered on 04/20/17 07:49; Start 04/20/17 at 09:00 Enoxaparin Sodium (Lovenox Inj) 40 mg Q24H SQ Last administered on 04/20/17 07 :49; Start 04/20/17 at 09:00 Pantoprazole Sodium (Protonix) 40 mg DAILY PO Last administered on 04/20/17 07 :47; Start 04/20/17 at 09:00 Al Hydrox/Mg Hydrox/Simethicone (Mag-Al Plus Susp Liq) 15 ml Q6H PRN PO HEARTBURN Last administered on 04/19/17 17:11; Start 04/19/17 at 17:00 Acetaminophen (Tylenol) 650 mg Q6HR PRN PO PAIN SCALE 1 TO 5; Start 04/20/17 at 16:45 Acetaminophen/ Hydrocodone Bitart ([place] 5-325 Mg) 1 tab Q6H PRN PO PAIN 6-10 Last administered on 04/21/17 05:58; Start 04/20/17 at 16:45 A/P Assessment and Plan A/P - DKA- resolved - continue levemir 10 units subq daily- continue with accu-check and SSI. A1c 8.9 -ACS with history of CAD- s/p CABG s/p cardiac cath with : no lesions for intervention CABGx4 (3/4 patent, with jump graft to PLB occluded) [place] vessels severely diseased and overall around 1.5mm, not suitable for intervention continue aspirin, plavix , statin and coreg- cardiology f/u appreciated. previously d/w ;cleared for discharge. -acute kidney injury/ hyperkalemia- improved continue to monitor. -hyponatremia- due to hyperglycemia- has improved -COPD with no exacerbation/lung nodule- f/u as outpatient- neb treatment as needed -DVT prophylaxis; subq Lovenox Discharge Planning dc home with [facility] later this afternoon if blood sugar stable. case management for dc needs. d/w the patient and RN. previously d/w . outpatient PT. time spent 35 min. Debra Tinsley MD Apr 21, 2017 08:45
[2017-04-21] MEDS ORDERED: LEVEMIR SQ (08:49)
[2017-04-21] MEDS ORDERED: ATOR1TAB18 PO (08:49)
[2017-04-21] MEDS ORDERED: NOVOLOGP2 SQ (08:49)
[2017-04-21] MEDS ORDERED: ASPI-99 PO (08:49)
--- NOTE | 2017-04-21 08:52 | HHI.DS ---
Discharge Summary Admission Date Apr 17, 2017 at 00:47 Discharge Date: Apr 21, 2017 Admitting Diagnosis DKA (1) DKA (diabetic ketoacidoses) ICD Code: E13.10 - Other specified diabetes mellitus with ketoacidosis without coma Diagnosis: Principal Status: Acute (2) CAD (coronary artery disease) ICD Code: I25.10 - Atherosclerotic heart disease of [place] coronary artery without angina pectoris Diagnosis: Principal Status: Chronic Procedures cardiac cath. Brief History - From Admission History from patient, ER physician communication, and review of medical records. Patient reported that he was not able to get his levemir prescription and has not taken that in years since the last time he saw his PCP. He states that he was instead prescribed Novolin R as needed at home and his blood sugars were not going down no matter what he does. They were always in the 400s. He also reports of abdominal pain, mid epigastric, with some associated nausea and vomiting. Denies fever. Denies any blood in his stool or in his urine. Denies any urinary burning or pain on urination. Denies any recent infections. However when asked about sores, patient reported he had a small sores in his buttock which he has been taking care of it himself. In the emergency room, patient's workup revealed elevated blood sugars with VBG pH of 7.2 and beta hydroxybutyrate in the 9. His chemistry was initially pending. He was given insulin IV push for control of his blood sugar while awaiting on chemistry. CBC/BMP: 04/20/17 0618 04/20/17 0618 Significant Findings Laboratory Tests Test 04/18/17 14:15 04/19/17 05:32 04/19/17 17:20 04/20/17 06:18 Random Glucose 185 MG/DL (74-106) 27 MG/DL (74-106) 424 MG/DL (74-106) Total Protein 4.7 GM/DL (6.4-8.2) 4.3 GM/DL (6.4-8.2) 4.7 GM/DL (6.4-8.2) Calcium Level 6.3 MG/DL (8.5-10.1) 6.2 MG/DL (8.5-10.1) 6.7 MG/DL (8.5-10.1) Chloride Level 114 MEQ/L (98-107) 113 MEQ/L (98-107) Carbon Dioxide Level 16.2 MEQ/L (21.0-32.0) 19.9 MEQ/L (21.0-32.0) Estimat Glomerular Filtration Rate 78 ML/MIN (>89) Protein Corrected Calcium 7.5 MG/DL (8.5-10.1) 7.6 MG/DL (8.5-10.1) 7.9 MG/DL (8.5-10.1) Red Blood Count 2.93 MIL/MM3 (4.50-5.90) 2.96 MIL/MM3 (4.50-5.90) Hemoglobin 9.4 GM/DL (13.0-17.0) 9.4 GM/DL (13.0-17.0) Hematocrit 27.8 % (39.0-51.0) 28.1 % (39.0-51.0) Platelet Count 100 TH/MM3 (150-450) 104 TH/MM3 (150-450) Creatinine 0.57 MG/DL (0.60-1.30) 0.52 MG/DL (0.60-1.30) Urine Glucose (UA) 1000 mg/dL (NEG) Sodium Level 134 MEQ/L (136-145) Imaging Last Impressions Chest CT 04/17/17 0000 Signed Impressions: Service Date/Time: Monday, April 17, 2017 01:29 - CONCLUSION: 1. Scattered subcentimeter nodules and mild infectious/inflammatory appearing infiltrate of both lungs seen in the setting of mild emphysema and mild bronchiectasis. No large or dense consolidation. No cavitary changes. 6 month followup noncontrast chest CT is recommended. 2. Previous cabbage. Normal heart size. 3. No adenopathy. 4. Old fractures of the left scapula and several left ribs. Ramon Gale MD Chest X-Ray 04/16/17 [id number] Signed Impressions: Service Date/Time: Sunday, April 16, 2017 22:01 - CONCLUSION: Questionable 1.6 cm focal lucency. A cavitary lesion cannot be excluded. A noncontrast CT examination of the chest could be performed for further evaluation. Ramon Arreguin MD PE at Discharge GENERAL: in no apparent distress. CARDIOVASCULAR: Regular rate and regular rhythm without murmurs, gallops, or rubs. RESPIRATORY: Clear to auscultation. Breath sounds equal bilaterally. No wheezes , rales, or rhonchi. GASTROINTESTINAL: Abdomen soft, non-tender, nondistended. Normal, active bowel sounds MUSCULOSKELETAL: Extremities without clubbing, cyanosis, or edema. NEURO: Alert & Oriented x4 to person, place, time, situation. Moves all ext x4 Hospital Course - DKA- resolved - continue levemir 10 units subq daily- continue with accu-check and SSI. A1c 8.9 -ACS with history of CAD- s/p CABG s/p cardiac cath with : no lesions for intervention CABGx4 (3/4 patent, with jump graft to PLB occluded) [place] vessels severely diseased and overall around 1.5mm, not suitable for intervention continue aspirin, plavix , statin and coreg- cardiology f/u appreciated. previously d/w ;cleared for discharge. -acute kidney injury/ hyperkalemia- improved continue to monitor. -hyponatremia- due to hyperglycemia- has improved -COPD with no exacerbation/lung nodule- f/u as outpatient- neb treatment as needed -DVT prophylaxis; subq Lovenox Pt Condition on Discharge: Fair Discharge Disposition: Disch w/ Home Health Serv Discharge Time: > 30 minutes Discharge Instructions DIET: Follow Instructions for: Heart Healthy Diet, Diabetic Diet Activities you can perform: Regular-No Restrictions Follow up Referrals: Cardiology Endocrinology PCP Follow-up New Medications: Insulin Aspart Inj (Novolog Inj) 1,000 Unit/10 Ml Vial 1-9 UNITS SQ ACHS for Blood Sugar Management, #10 ML 0 Refills sugars less than 70,(0)units; sugars 150-199,(1) unit; sugars 200-249,(3) units; sugars 250-299,(5) units; sugars 300-349,(7) units; sugars greater than 349,(9) units. inform PCP if < 70 or > [address] Aspirin DR (Adult Aspirin EC Low Strength) 81 Mg Tabec 81 MG PO DAILY for cad for 30 Days, #30 TAB 0 Refills Atorvastatin (Atorvastatin) 80 Mg Tab 80 MG PO HS for dyslipidemia for 30 Days, TAB 0 Refills Insulin Detemir Inj (Levemir Inj) 1,000 unit/ 10 ML Vial 10 UNITS SQ DAILY for diabetes for 30 Days, INJECTION 0 Refills Do not mix with any other Insulin. Continued Medications: Amlodipine (Norvasc) 5 Mg Tab 5 MG PO DAILY, #90 TAB 2 Refills Carvedilol (Carvedilol) 6.25 Mg Tab 6.25 MG PO BID, #60 TAB 4 Refills Clopidogrel (Plavix) 75 Mg Tab 75 MG PO DAILY for Blood Clot Prevention, #30 TAB 3 Refills Cyanocobalamin (B12) 1,000 Mcg Tab 1000 MCG PO DAILY Hydrocodone-Acetaminophen (Antoine) 10-325 Mg Tab 1 TAB PO Q6HR for Pain Management, #20 TAB 0 Refills Levothyroxine (Synthroid) 100 Mcg Tab 100 MCG PO DAILY@06 for hypothyroidism, #30 TAB 5 Refills Lisinopril (Lisinopril) 10 Mg Tab 10 MG PO Q12HR, #180 TAB 1 Refill Nortriptyline (Nortriptyline) 75 Mg Cap 75 MG PO HS for Depression Control, #30 CAP 0 Refills Omeprazole Magnesium (Prilosec) 20 Mg Tab Unknown Dose Pregabalin (Lyrica) 75 Mg Cap 75 MG PO TID, #60 CAP 0 Refills Discontinued Medications: Aspirin (Aspirin) 325 Mg Tab 325 MG PO DAILY, #30 TAB 0 Refills Insulin Detemir Inj (Levemir Inj) 1,000 unit/ 10 ML Vial 12 UNITS SQ AC BREAKFAST for Blood Sugar Management, #10 ML 3 Refills 10 units in AM 12 units in the PM Do not mix with any other Insulin. Insulin Regular (Human) (Novolin R Relion) 100 Unit/Ml Inj 2-10 UNITS SQ TID, #10 ML 4 Refills Max dose at bedtime:( )units; sugars less than 150,(0) units; sugars 150-199,(2)unit; sugars 200-249,(4)units; sugars 250-299,(6) units; sugars 300-349,(8)units; sugars equal to or greater than 350,(10)units Lovastatin (Lovastatin) 20 Mg Tab 20 MG PO DAILY for Cholesterol Management, #30 TAB 4 Refills Meloxicam (Meloxicam) 7.5 Mg Tab 7.5 MG PO DAILY for Arthritis Pain, #30 TAB 0 Refills Debra Tinsley MD Apr 21, 2017 08:52
[2017-04-21] MEDS: INSULIN DETEMIR 100 UNITS/ML VIAL SQ SCH (09:00)
[2017-04-21] MEDS: CLOPIDOGREL 75 MG TAB PO SCH (09:18)
[2017-04-21] MEDS: PANTOPRAZOLE SOD 40 MG DELAYED RELEASE TAB PO SCH (09:18)
[2017-04-21] MEDS: CYANOCOBALAMIN 1,000 MCG TAB PO SCH (09:18)
[2017-04-21] MEDS: amLODIPine BESYLATE 5 MG TAB PO SCH (09:18)
[2017-04-21] MEDS: ENOXAPARIN SODIUM 40 MG/0.4 ML SYRINGE SQ SCH (09:18)
[2017-04-21] MEDS: PREGABALIN 75 MG CAP PO SCH ×3 (09:18→17:23)
[2017-04-21] MEDS: LISINOPRIL 10 MG TAB PO SCH ×2 (09:18→21:03)
[2017-04-21] MEDS: CARVEDILOL 6.25 MG TAB PO SCH ×2 (09:18→21:03)
[2017-04-21] MEDS: ASPIRIN EC 81 MG TABEC PO SCH (09:18)
[2017-04-21] MEDS: SODIUM CHLORIDE 0.9% FLUSH 10 ML FLUSH IV FLUSH SCH ×2 (09:19→21:03)
[2017-04-21 10:48] LABS: POTASSIUM 3.9 MEQ/L (3.5-5.1)
[2017-04-21 11:04] LABS: CALCIUM-PROTEIN CORRECTED 8.1 MG/DL (8.5-10.1)
[2017-04-21] MEDS: SODIUM CHLOR 0.9% 1000 ML INJ 1,000 ML IV SCH (15:15)
[2017-04-21] MEDS: ALUMINUM/MAGNESIUM/SIMETH 30 ML CUP PO PRN (15:26)
[2017-04-21] MEDS ORDERED: INSULIN DETEMIR 100 UNITS/ML VIAL SQ ONE (21:00)
[2017-04-21] MEDS: NORTRIPTYLINE HCL 25 MG CAP PO SCH (21:03)
[2017-04-21] MEDS: ATORVASTATIN 80 MG TAB PO SCH (21:04)
[2017-04-22] MEDS: SODIUM CHLOR 0.9% 1000 ML INJ 1,000 ML IV SCH ×2 (03:10→15:05)
[2017-04-22 04:04] VITALS: BP 109/55; PULSE 78; RESP 17; TEMP 96.9; O2SAT 99
[2017-04-22] MEDS: ACETAMINOPHEN/HYDROcodone 325 MG/5 MG TAB PO PRN ×2 (06:38→12:44)
[2017-04-22] MEDS: LEVOTHYROXINE SODIUM 100 MCG TAB PO SCH (06:38)
[2017-04-22 07:45] VITALS: BP 137/74; PULSE 81; RESP 16; TEMP 96; O2SAT 99
[2017-04-22] MEDS: INSULIN ASPART SUPPLEMENTAL SCALE SQ SCH ×2 (08:00→12:00)
[2017-04-22] MEDS: LISINOPRIL 10 MG TAB PO SCH (09:00)
[2017-04-22] MEDS: CARVEDILOL 6.25 MG TAB PO SCH (09:00)
[2017-04-22] MEDS ORDERED: INSULIN DETEMIR 100 UNITS/ML VIAL SQ SCH (09:00)
[2017-04-22] MEDS: amLODIPine BESYLATE 5 MG TAB PO SCH (09:00)
[2017-04-22] MEDS: SODIUM CHLORIDE 0.9% FLUSH 10 ML FLUSH IV FLUSH SCH (09:00)
[2017-04-22] MEDS: CYANOCOBALAMIN 1,000 MCG TAB PO SCH (09:26)
[2017-04-22] MEDS: ENOXAPARIN SODIUM 40 MG/0.4 ML SYRINGE SQ SCH (09:26)
[2017-04-22] MEDS: ASPIRIN EC 81 MG TABEC PO SCH (09:27)
[2017-04-22] MEDS: PANTOPRAZOLE SOD 40 MG DELAYED RELEASE TAB PO SCH (09:27)
[2017-04-22] MEDS: CLOPIDOGREL 75 MG TAB PO SCH (09:27)
[2017-04-22] MEDS: PREGABALIN 75 MG CAP PO SCH ×2 (09:27→12:17)
--- NOTE | 2017-04-22 09:33 | HHI.PR ---
Subjective Remarks resting comfortably with no distress. no new complaints. blood sugar trend noted. d/w the RN and no acute issues over night. Objective Vitals Vital Signs Date Time Temp Pulse Resp B/P (MAP) Pulse Ox O2 Delivery O2 Flow Rate FiO2 04/22/17 04:04 96.9 78 17 109/55 (73) 99 04/21/17 23:25 97.4 88 18 127/67 (87) 99 04/21/17 20:30 81 04/21/17 19:23 96.9 79 18 120/66 (84) 100 04/21/17 16:00 97.1 82 17 112/63 (79) 100 04/21/17 13:03 18 04/21/17 13:03 18 04/21/17 12:00 97.1 95 18 110/67 (81) 100 I/O 04/21/17 04/21/17 04/21/17 04/22/17 04/22/17 04/22/17 07:00 15:00 23:00 07:00 15:00 23:00 Intake Total 600 ml 720 ml 480 ml 480 ml Output Total 800 ml Balance 600 ml -80 ml 480 ml 480 ml Intake Oral 600 ml 720 ml 480 ml 480 ml Output Urine Total 800 ml # Voids 2 2 3 3 # Bowel Movements 1 1 0 Result Diagram: 04/20/17 0618 04/21/17 1008 Imaging Last Impressions Chest CT 04/17/17 0000 Signed Impressions: Service Date/Time: Monday, April 17, 2017 01:29 - CONCLUSION: 1. Scattered subcentimeter nodules and mild infectious/inflammatory appearing infiltrate of both lungs seen in the setting of mild emphysema and mild bronchiectasis. No large or dense consolidation. No cavitary changes. 6 month followup noncontrast chest CT is recommended. 2. Previous cabbage. Normal heart size. 3. No adenopathy. 4. Old fractures of the left scapula and several left ribs. Ramon Gale MD Chest X-Ray 04/16/17 4752 Signed Impressions: Service Date/Time: Sunday, April 16, 2017 22:01 - CONCLUSION: Questionable 1.6 cm focal lucency. A cavitary lesion cannot be excluded. A noncontrast CT examination of the chest could be performed for further evaluation. Ramon Arreguin MD Objective Remarks GENERAL: in no apparent distress. CARDIOVASCULAR: Regular rate and regular rhythm without murmurs, gallops, or rubs. RESPIRATORY: Clear to auscultation. Breath sounds equal bilaterally. No wheezes , rales, or rhonchi. GASTROINTESTINAL: Abdomen soft, non-tender, nondistended. Normal, active bowel sounds MUSCULOSKELETAL: Extremities without clubbing, cyanosis, or edema. NEURO: Alert & Oriented x4 to person, place, time, situation. Moves all ext x4 Procedures cardiac cath. Medications and IVs Current Medications Sodium Chloride 1,000 ml @ 1,000 mls/hr Q1H ONCE IV Last administered on 22:45; Start 04/16/17 at 22:00; Stop 04/16/17 at 22:59; Status DC Ondansetron HCl (Zofran Inj) 4 mg ONCE ONCE IV Last administered on 04/16/17 22:46; Start 04/16/17 at 22:00; Stop 04/16/17 at 22:02; Status DC Sodium Chloride 1,000 ml @ 250 mls/hr Q4H IV Last administered on 04/17/17 07 :06; Start 04/16/17 at 22:52; Stop 04/17/17 at 13:50; Status DC Dextrose/Sodium Chloride 1,000 ml @ 200 mls/hr Q5H IV Last administered on 09:52; Start 04/16/17 at 22:52; Stop 04/18/17 at 15:34; Status DC Insulin Human Regular (NovoLIN R INJ) 4 units BOLUS ONCE IV PUSH Last administered on 04/17/17 00:57; Start 04/16/17 at 23:00; Stop 04/16/17 at 23:01 ; Status DC Insulin Human Regular 100 units/ Sodium Chloride 100 ml @ 0 mls/hr TITRATE PRN IV Blood Sugar Management; Start 04/16/17 at 23:00; Status UNV Potassium Chloride 100 ml @ 100 mls/hr Q1H PRN IV SEE LABEL COMMENTS; Start 04/16/17 at 23:00; Stop 04/18/17 at 15:34; Status DC Potassium Chloride 100 ml @ 50 mls/hr Q2H PRN IV SEE LABEL COMMENTS; Start at 23:00; Stop 04/18/17 at 15:34; Status DC Potassium Chloride 100 ml @ 100 mls/hr Q1H PRN IV SEE LABEL COMMENTS; Start 04/16/17 at 23:00; Stop 04/18/17 at 15:35; Status DC Potassium Chloride 100 ml @ 100 mls/hr Q1H PRN IV SEE LABEL COMMENTS; Start 04/16/17 at 23:00; Stop 04/18/17 at 15:35; Status DC Potassium Chloride 100 ml @ 50 mls/hr Q2H PRN IV SEE LABEL COMMENTS; Start at 23:00; Stop 04/18/17 at 15:35; Status DC Potassium Chloride 100 ml @ 50 mls/hr Q2H PRN IV SEE LABEL COMMENTS; Start at 23:00; Stop 04/18/17 at 15:35; Status DC Potassium Chloride 100 ml @ 50 mls/hr Q2H PRN IV SEE LABEL COMMENTS; Start at 23:00; Stop 04/18/17 at 15:35; Status DC Potassium Chloride 100 ml @ 50 mls/hr Q2H PRN IV SEE LABEL COMMENTS; Start at 23:00; Stop 04/18/17 at 15:35; Status DC Sodium Bicarbonate (Sodium Bicarbonate 8.4% Inj) 100 meq UNSCH PRN IV PUSH SEE LABEL COMMENTS; Start 04/16/17 at 23:00; Stop 04/18/17 at 15:35; Status DC Sodium Bicarbonate (Sodium Bicarbonate 8.4% Inj) 50 meq UNSCH PRN IV PUSH SEE LABEL COMMENTS; Start 04/16/17 at 23:00; Stop 04/18/17 at 15:35; Status DC Sodium Phosphate 15 mmol/Sodium Chloride 105 ml @ 25 mls/hr UNSCH PRN IV SEE LABEL COMMENTS; Start 04/16/17 at 23:00; Stop 04/18/17 at 15:35; Status DC Insulin Human Regular 100 units/ Sodium Chloride 100 ml @ 0 mls/hr TITRATE PRN IV Blood Sugar Management; Start 04/17/17 at 00:45; Status UNV Insulin Human Regular 100 units/ Sodium Chloride 100 ml @ 8.25 mls/hr TITRATE IV Last administered on 04/17/17t 02:32; Start 04/17/17 at 01:15; Stop at 14:03; Status DC Sodium Chloride 1,000 ml @ 100 mls/hr Q10H IV ; Start 04/17/17 at 01:17; Stop 04/17/17 at 01:20; Status DC Sodium Chloride (NS Flush) 2 ml UNSCH PRN IV FLUSH FLUSH AFTER USING IV ACCESS ; Start 04/17/17 at 01:30 Sodium Chloride (NS Flush) 2 ml BID IV FLUSH Last administered on 04/21/17 21: 03; Start 04/17/17 at 09:00 Naloxone HCl (Narcan Inj) 0.4 mg UNSCH PRN IV PUSH SEE LABEL COMMENTS; Start 04/17/17 at 01:30 Sodium Chloride 1,000 ml @ 999 mls/hr BOLUS ONCE IV Last administered on 04/17 01:51; Start 04/17/17 at 01:30; Stop 04/17/17 at 02:30; Status DC Aspirin (Aspirin Chew) 324 mg ONCE ONCE CHEW ; Start 04/17/17 at 04:30; Stop 04/17/17 at 04:33; Status DC Nitroglycerin (Nitroglycerin 2% Oint) 1 inch ONCE ONCE TOPICAL ; Start at 04:30; Stop 04/17/17 at 04:33; Status DC Pneumococcal Polyvalent Vaccine (Pneumovax-23 Inj) 25 mcg ONCE ONCE IM Last administered on 04/18/17 16:05; Start 04/18/17 at 10:00; Stop 04/18/17 at 10:01 ; Status DC Amlodipine Besylate (Norvasc) 5 mg DAILY PO Last administered on 04/21/17 09: 18; Start 04/17/17 at 09:00 Aspirin (Aspirin) 325 mg DAILY PO ; Start 04/17/17 at 09:00; Stop 04/17/17 at 09 :00; Status DC Carvedilol (Coreg) 6.25 mg BID PO Last administered on 04/21/17 21:03; Start 04/17/17 at 09:00 Clopidogrel Bisulfate (Plavix) 75 mg DAILY PO Last administered on 04/21/17 09 :18; Start 04/17/17 at 09:00 Levothyroxine Sodium (Synthroid) 100 mcg DAILY@06 PO Last administered on 06:38; Start 04/18/17 at 06:00 Lisinopril (Prinivil) 10 mg Q12HR PO Last administered on 04/21/17 21:03; Start 04/17/17 at 09:00 Nortriptyline HCl (Pamelor) 75 mg HS PO Last administered on 04/21/17 21:03; Start 04/17/17 at 21:00 Pregabalin (Lyrica) 75 mg TID PO Last administered on 04/21/17 17:23; Start 04/17/17 at 09:00 Cyanocobalamin (Vitamin B12) 1,000 mcg DAILY PO Last administered on 04/21/17 09:18; Start 04/17/17 at 09:00 Heparin Sodium (Porcine) (Heparin Inj) 7,000 units ONCE ONCE IV PUSH ; Start 04/17/17 at 08:00; Stop 04/18/17 at 13:02; Status DC Heparin Sodium (Porcine) (Heparin Inj) 3,600 units NOW ONCE IV PUSH Last administered on 04/17/17 13:37; Start 04/17/17 at 14:00; Stop 04/18/17 at 13:02 ; Status DC Heparin Sodium (Porcine) (Heparin Inj) 2,500 units UNSCH PRN IV PUSH APTT 25 TO 39 Last administered on 04/18/17 01:28; Start 04/17/17 at 14:00; Stop at 13:02; Status DC Heparin Sodium/ Dextrose 250 ml @ 7.2 mls/hr TITRATE PRN IV Coagulation management Last administered on 04/17/17 11:15; Start 04/17/17 at 08:00; Stop 04/18/17 at 13:01; Status DC Aspirin (Ecotrin Ec) 81 mg DAILY PO Last administered on 04/21/17 09:18; Start 04/17/17 at 09:00 Nitroglycerin (Nitrostat Sl) 0.4 mg Q5M PRN SL CHEST PAIN; Start 04/17/17 at 08 :15 Heparin Sodium (Porcine) (Heparin Inj) 5,000 units UNSCH PRN IV PUSH APTT<25 - APTT LESS THAN 25; Start 04/17/17 at 10:15; Stop 04/18/17 at 13:03; Status DC Midazolam HCl (Versed Inj) 2 mg [facility]-MED ONCE .ROUTE ; Start 04/18/17 at 11:48; Stop 04/18/17 at 11:49; Status DC Fentanyl Citrate (fentaNYL INJ) 100 mcg STK-MED ONCE .ROUTE ; Start 04/18/17 at 11:48; Stop 04/18/17 at 11:49; Status DC Heparin Sodium/ Sodium Chloride 1,000 ml @ As Directed STK-MED ONCE .ROUTE ; Start 04/18/17 at 11:48; Stop 04/18/17 at 11:49; Status DC Sodium Chloride 500 ml @ As Directed STK-MED ONCE .ROUTE ; Start 04/18/17 at 11 :48; Stop 04/18/17 at 11:49; Status DC Miscellaneous Information 1 ONCE ONCE XX Last administered on 04/18/17 12:45 ; Start 04/18/17 at 12:45; Stop 04/18/17 at 13:00; Status DC Atorvastatin Calcium (Lipitor) 80 mg HS PO Last administered on 04/21/17 21:04 ; Start 04/18/17 at 21:00 Insulin Human Regular 100 units/ Sodium Chloride 100 ml @ 6.62 mls/hr TITRATE IV ; Start 04/18/17 at 14:00; Stop 04/18/17 at 15:32; Status DC Insulin Detemir (Levemir Inj) 10 units BID SQ Last administered on 04/18/17 22 :38; Start 04/18/17 at 15:45; Stop 04/19/17 at 10:12; Status DC Dextrose (D50w (Vial) Inj) 50 ml UNSCH PRN IV PUSH HYPOGLYCEMIA-SEE COMMENTS; Start 04/18/17 at 15:45 Glucagon (Glucagon Inj) 1 mg UNSCH PRN OTHER HYPOGLYCEMIA-SEE COMMENTS; Start 04/18/17 at 15:45 Insulin Aspart (NovoLOG SUPPLEMENTAL SCALE) 1 ACHS SLIDING SCALE SQ Last administered on 04/21/17 21:04; Start 04/18/17 at 17:00 Sodium Chloride 1,000 ml @ 84 mls/hr [id number] IV Last administered on 15:35; Start 04/18/17 at 15:45 Insulin Detemir (Levemir Inj) 10 units DAILY SQ Last administered on 04/21/17 09:00; Start 04/20/17 at 09:00; Stop 04/21/17 at 11:43; Status DC Enoxaparin Sodium (Lovenox Inj) 40 mg Q24H SQ Last administered on 04/21/17 09 :18; Start 04/20/17 at 09:00 Pantoprazole Sodium (Protonix) 40 mg DAILY PO Last administered on 04/21/17 09 :18; Start 04/20/17 at 09:00 Al Hydrox/Mg Hydrox/Simethicone (Mag-Al Plus Susp Liq) 15 ml Q6H PRN PO HEARTBURN Last administered on 04/21/17 15:26; Start 04/19/17 at 17:00 Acetaminophen (Tylenol) 650 mg Q6HR PRN PO PAIN SCALE 1 TO 5; Start 04/20/17 at 16:45 Acetaminophen/ Hydrocodone Bitart ([place] 5-325 Mg) 1 tab Q6H PRN PO PAIN 6-10 Last administered on 04/22/17 06:38; Start 04/20/17 at 16:45 Insulin Detemir (Levemir Inj) 5 units ONCE ONCE SQ Last administered on 21:05; Start 04/21/17 at 21:00; Stop 04/21/17 at 21:01; Status DC Insulin Detemir (Levemir Inj) 8 units Q12HR SQ ; Start 04/22/17 at 09:00 A/P Assessment and Plan A/P - DKA- resolved - increased levemir to8 units subq twice daily- continue with accu-check and SSI. A1c 8.9 -ACS with history of CAD- s/p CABG s/p cardiac cath with : no lesions for intervention CABGx4 (3/4 patent, with jump graft to PLB occluded) [place] vessels severely diseased and overall around 1.5mm, not suitable for intervention continue aspirin, plavix , statin and coreg- cardiology f/u appreciated. previously d/w ;cleared for discharge. -acute kidney injury/ hyperkalemia- improved continue to monitor. -hyponatremia- due to hyperglycemia- has improved -COPD with no exacerbation/lung nodule ( d/w the patient)- f/u as outpatient- neb treatment as needed -DVT prophylaxis; subq Lovenox Discharge Planning dc home with [facility] today. case management for dc needs. d/w the patient and RN. previously d/w . d/w the case management. outpatient PT. time spent 35 min. Debra Tinsley MD Apr 22, 2017 09:33
[2017-04-22] MEDS ORDERED: LEVEMIR SQ (09:35)
[2017-04-22 11:44] VITALS: BP 127/69; PULSE 83; RESP 16; TEMP 97.6; O2SAT 100
[2017-04-22 16:00] VITALS: BP 98/58; PULSE 79; RESP 16; TEMP 96.8; O2SAT 100
[2017-04-26] MEDS ORDERED: PRIL20TA2 PO (09:42)
[2017-04-26] MEDS ORDERED: LYRI100C PO (09:42)
[2017-04-26] MEDS ORDERED: ATOR1TAB18 PO (09:54)
[2017-04-26] MEDS ORDERED: LISI10TA3 PO (09:56)
[2017-05-01] MEDS ORDERED: HYDR25TA5 PO (08:24)
== END 2017-04-22 17:05 | disposition home or self-care (01) | DRG 280 ==
LOC: NEPC 19:36 → NEDA 04-17 00:47 → N03A 04-17 04:36 → N06B 04-19 22:09
PROVIDERS: ADMIT Internal Medicine; ATTEND Internal Medicine
PROC: B2131ZZ Fluoroscopy of Multiple Coronary Artery Bypass Grafts using Low Osmolar Contrast (ICD-10-PCS; 2017-04-18)
PROC: 4A023N7 Measurement of Cardiac Sampling and Pressure, Left Heart, Percutaneous Approach (ICD-10-PCS; 2017-04-18)
PROC: B2111ZZ Fluoroscopy of Multiple Coronary Arteries using Low Osmolar Contrast (ICD-10-PCS; principal; 2017-04-18 11:00)
DX: I21.4 Non-ST elevation (NSTEMI) myocardial infarction (principal); E11.10 Type 2 diabetes mellitus with ketoacidosis without coma; N17.9 Acute kidney failure, unspecified; L89.159 Pressure ulcer of sacral region, unspecified stage; E87.1 Hypo-osmolality and hyponatremia; E11.40 Type 2 diabetes mellitus with diabetic neuropathy, unspecified; I25.810 Atherosclerosis of coronary artery bypass graft(s) without angina pectoris; Z89.611 Acquired absence of right leg above knee; E86.0 Dehydration; E87.5 Hyperkalemia; M50.20 Other cervical disc displacement, unspecified cervical region; I10 Essential (primary) hypertension; I25.10 Atherosclerotic heart disease of native coronary artery without angina pectoris; K21.9 Gastro-esophageal reflux disease without esophagitis; E78.5 Hyperlipidemia, unspecified; I73.9 Peripheral vascular disease, unspecified; K46.9 Unspecified abdominal hernia without obstruction or gangrene; M19.90 Unspecified osteoarthritis, unspecified site; H91.90 Unspecified hearing loss, unspecified ear; M51.26 Other intervertebral disc displacement, lumbar region; I44.7 Left bundle-branch block, unspecified; J44.9 Chronic obstructive pulmonary disease, unspecified; R26.9 Unspecified abnormalities of gait and mobility; F32.9 Major depressive disorder, single episode, unspecified; F41.9 Anxiety disorder, unspecified; Z23 Encounter for immunization; Z79.4 Long term (current) use of insulin; Z87.891 Personal history of nicotine dependence; Z88.5 Allergy status to narcotic agent; Z91.14 Patient's other noncompliance with medication regimen
CPT/HCPCS: 71010; 71250; 80048; 80053; 80061; 81001; 82010; 82550; 82800; 82947; 82948; 83036; 83690; 83735; 83880; 84155; 84484; 85002; 85025; 85027; 85610; 85730; 87641; 90732; 93005; 93306; 93454; 96361; 96374; C1769; C1893; J1644; J1650; J1815; J1817; J2250; J2405; J3010; J3480; J7030; J7040; J7042

== ENCOUNTER → 2017-05-02 | Outpatient (CLI) | payer OTHER ==
[~2017-05-02] MED LIST changes: +ASPI-99 PO; -ASPI81TA11 PO; +ATOR1TAB18 PO; +HYDR25TA5 PO; -INSUINJ3 SQ; -LOVA20TA PO; +LYRI100C PO; -LYRI75CA PO; -MELO7.5T4 PO; +NOVOLOGP2 SQ; +PRIL20TA2 PO; -RANI150T PO; -THERM PO
--- NOTE | 2017-05-02 15:01 | RADRPT ---
EXAM DATE/TIME: 05/02/2017 14:09 [facility] COMPARISON: No previous studies available for comparison. INDICATIONS : Left leg swelling. MEDICAL HISTORY : Thyroid disease. Seizures. Hypoglycemia. Cardiac disorders. [place].. CAD. PVD. Hypercholesterol. H ypertension. Hyperlipidemia. GERD. SURGICAL HISTORY : Appendectomy. CABG Left shoulder surgery. Right AKA. GSV removed from left leg. ENCOUNTER: Subsequent ACUITY: 1 day PAIN SCORE: 0/10 LOCATION: Left leg. TECHNIQUE: Venous ultrasound of the leg was performed from the inguinal ligament to the proximal calf. Real-sahra e, color Doppler and spectral tracing, compression and augmentation techniques were used. FINDINGS: There is normal compressibility of the deep venous system from the inguinal region to the proximal ca lf. No echogenic clot is seen in the lumen of the common femoral, femoral, popliteal, and posterior tibial veins. There is a normal response of the venous system to proximal and distal augmentation an d respiration. CONCLUSION: No DVT is identified in the left lower extremity. Ramon Peters MD on May 02, 2017 at 14:59 Board Certified Radiologist. This report was verified electronically.
== END ==
LOC: HRAD 13:49
PROVIDERS: ATTEND Family Medicine
DX: M79.89 Other specified soft tissue disorders (principal)
CPT/HCPCS: 93971

== ENCOUNTER 2017-05-11 17:16 | Emergency (ER) | payer OTHER ==
[~2017-05-11] VITALS: Ht 177.8 cm; Wt 65.0 kg
[~2017-05-11 17:16] MED LIST changes: -ASPI-99 PO; +ASPI1TAB56 PO; -ATOR1TAB18 PO; +ATOR80TA45 PO
[2017-05-11 17:18] VITALS: BP 149/97; PULSE 91; RESP 14; TEMP 97.9; O2SAT 99
[2017-05-11 18:58] VITALS: BP 132/71; PULSE 85; RESP 16; TEMP 97.8; O2SAT 100
--- NOTE | 2017-05-11 19:28 | PD ---
HPI Chief Complaint: Edema Time Seen by Provider: 18:54 Travel History International Travel<30 days: No Contact w/Intl Traveler<30days: No Traveled to known affect area: No History of Present Illness HPI Patient comes in for evaluation of left lower extremity edema that he reports is getting progressively worse. Patient has had this for approximately 2 weeks. Patient seen by his primary care doctor had ultrasound ordered and was found to be negative. Patient is concerned feels the swelling is getting worse. Patient complain pain in his left leg that is worse first thing in the morning and improves with moving around. Describes pain as an achiness throughout his leg. Patient also has concerns over abrasion over his anterior left dietz. Patient has a few other superficial abrasions that he is concerned about getting infected. Patient is requesting oral antibiotics for these. Patient denies any shortness of breath, fevers, chest pain, nausea, vomiting, loss change in bowel or bladder. Patient denies anything making his edema better. Reports taking a water pill he was prescribed does not seem to be helping. PFSH Past Medical History Hx Anticoagulant Therapy: Yes Arthritis: Yes Asthma: No Autoimmune Disease: No Blood Disorders: No Anxiety: Yes Depression: Yes Heart Rhythm Problems: No Cancer: No Cardiovascular Problems: Yes High Cholesterol: Yes Chemotherapy: No Chest Pain: No Congestive Heart Failure: No COPD: No Cerebrovascular Accident: No Coronary Artery Disease: Yes Diabetes: Yes Patient Takes Glucophage: Yes Diminished Hearing: Yes Endocrine: Yes Gastrointestinal Disorders: Yes (ESOPHAGEAL ULCER?stricture, stretch 1 1/2 yr ago) GERD: Yes Glaucoma: No Genitourinary: No Headaches: No Hepatitis: No Hiatal Hernia: No Hypertension: Yes Immune Disorder: No Implanted Vascular Access Dvce: Yes Kidney Stones: No Musculoskeletal: Yes (cervical and lumbar spine pt states he has bulging disc R AKA) Neurologic: Yes (NEUROPATHY pvd) Psychiatric: No Reproductive: No Respiratory: No Immunizations Current: No Migraines: No Myocardial Infarction: Yes Radiation Therapy: No Renal Failure: No Seizures: Yes (PER PT SECONDARY TO HYPOGLYCEMIA) Sickle Cell Disease: No Sleep Apnea: No Thyroid Disease: Yes Ulcer: No PNEUMOCCOCAL Vaccine (Year): 2 Past Surgical History Abdominal Surgery: Yes (EXP. LEFT BRACHIAL PLEXIS,APPEND., COLECTOMY) AICD: No Appendectomy: Yes Arteriovenous Shunt: No Body Medical Devices: Right leg amputaion wears prosthesis Cardiac Surgery: Yes (CABGX4) Cholecystectomy: No Coronary Artery Bypass Graft: Yes (2004) Ear Surgery: No Endocrine Surgery: No Eye Surgery: No Genitourinary Surgery: No Gynecologic Surgery: No Insulin Pump: No Joint Replacement: No Neurologic Surgery: No Oral Surgery: No Pacemaker: No Thoracic Surgery: Yes (L5, S1, fusions) Tonsillectomy: Yes Other Surgery: Yes (2 HYDROCELE) Social History Alcohol Use: No Tobacco Use: No (reports quit 12/15/15) Substance Use: No Allergies-Medications (Allergen,Severity, Reaction): Coded Allergies: morphine (Verified Adverse Reaction, Severe, STS HE BECOMES VIOLENT., ) Uncoded Allergies: UNFRACTIONATED HEPARIN (Adverse Reaction, Severe, PT UNSURE OF REACTION, ) patient states he's not allergic, " I just bleed easily", explained to patient drug's purpose. Reported Meds & Prescriptions Reported Meds & Active Scripts Active Mupirocin Topical (Mupirocin) 2 % Oint 1 Applic TOPICAL BID Hydrochlorothiazide 25 Mg Tab 25 Mg PO DAILY Lisinopril 10 Mg Tab 10 Mg PO Q12HR Atorvastatin (Atorvastatin Calcium) 80 Mg Tab 80 Mg PO HS 30 Days Prilosec (Omeprazole Magnesium) 20 Mg Tab 1 Tab PO BID Lyrica (Pregabalin) 100 Mg Cap 100 Mg PO TID Levemir Inj (Insulin Detemir) 1,000 unit/ 10 ML Vial 8 Units SQ BID 30 Days Do not mix with any other Insulin. Novolog Inj (Insulin Aspart) 1,000 Unit/10 Ml Vial 1-9 Units SQ ACHS sugars less than 70,(0)units; sugars 150-199,(1) unit; sugars 200-249,(3) units; sugars 250-299,(5) units; sugars 300-349,(7) units; sugars greater than 349,(9) units. inform PCP if < 70 or > 400. Adult Aspirin EC Low Strength (Aspirin) 81 Mg Tabec 81 Mg PO DAILY 30 Days Norvasc (Amlodipine Besylate) 5 Mg Tab 5 Mg PO DAILY Nortriptyline (Nortriptyline HCl) 75 Mg Cap 75 Mg PO HS Plavix (Clopidogrel Bisulfate) 75 Mg Tab 75 Mg PO DAILY Synthroid (Levothyroxine Sodium) 100 Mcg Tab 100 Mcg PO DAILY@06 [place] (Hydrocodone-Acetaminophen) 10-325 Mg Tab 1 Tab PO Q6HR Carvedilol 6.25 Mg Tab 6.25 Mg PO BID Reported B12 (Cyanocobalamin) 1,000 Mcg Tab 1,000 Mcg PO DAILY Review of Systems Except as stated in HPI: all other systems reviewed are Neg Physical Exam Narrative GENERAL: Well-developed, well nourished, in no acute distress, and non-ill appearing. SKIN: Abrasion noted left anterior dietz that is approximately 1 x 0.5 cm. It is afebrile, mildly tender, nonerythematous, and without drainage or crepitus. Patient is a few small questionable bug bites versus impetigo noted lateral aspect of left calf. There is scant amounts of clear fluid noted. Patient reports tenderness to palpation there is no crepitus, erythematous, or induration. All abrasions are afebrile. Slight discoloration of this second toe on his left foot. Patient is uncertain how long he has been like this. HEAD: Atraumatic. Normocephalic. EYES: Pupils equal and round. EOMI. No scleral icterus. No injection or drainage. ENT: No nasal bleeding or discharge. Mucous membranes pink and moist. NECK: Trachea midline. Supple. No nuclear rigidity. CARDIOVASCULAR: Regular rate and rhythm. No murmur appreciated. Dorsal pulses 2+ and intact. Capillary refill less than 3 seconds. RESPIRATORY: No accessory muscle use. No respiratory distress. Clear to auscultation. Breath sounds equal bilaterally. MUSCULOSKELETAL: No obvious deformities. No clubbing. No cyanosis. 1+ pitting edema left lower extremity. Full range of motion. Right AKA noted. NEUROLOGICAL: Awake and alert. No obvious cranial nerve deficits. Motor grossly within normal limits. Normal speech. PSYCHIATRIC: Appropriate mood and affect; insight and judgment normal. Data Data Last Documented VS Vital Signs Date Time Temp Pulse Resp B/P (MAP) Pulse Ox O2 Delivery O2 Flow Rate FiO2 05/11/17 21:10 05/11/17 18:58 97.8 85 16 100 Room Air Orders Orders Us Leg Venous Doppler (05/11/17 19:05) Ed Discharge Order (05/11/17 20:36) MDM Medical Decision Making Medical Screen Exam Complete: Yes Emergency Medical Condition: Yes Differential Diagnosis DVT, edema, abrasion, impetigo, cellulitis, other Narrative Course Patient in no obvious distress upon re-evaluation. All pertinent Radiology result(s) discussed with patient. Discussed patient with Dr. Erickson, who saw and evaluated the patient and is in agreement with plan of care and disposition. Any questions/concerns in reference to patient diagnosis/ condition discussed and clarified prior to patient's discharge. Reinforced sheer importance of close follow up with patient's primary physician or primary care clinic and his vascular surgeon to try and prevent loss of his left limb. Instructed patient to return to ED immediately, if symptoms return/worsen. Patient showed understanding of above instructions. Further instructions and recommendations were detailed in discharge paperwork. Patient ambulated without difficulty out of ED at discharge. Diagnosis Primary Impression: Leg edema, left Additional Impression: Visit for wound check Referrals: Rudy Balderas MD Patient Instructions: Acute Wound Care (GEN), Edema (DC), General Instructions Additional Instructions: Follow-up with your primary care physician next week for reevaluation. Follow up with your vascular surgeon as scheduled or sooner if possible. Take all medication as prescribed. Keep wound dry and clean as possible using soap and water. Return to the emergency department if symptoms get worse. Med/Other Pt SpecificInfo: Prescription(s) given Scripts Mupirocin Topical (Mupirocin Topical) 2 % Oint 1 APPLIC TOPICAL BID for Mgmt Bacterial Infection, #1 TUBE 0 Refills Prov: Emily Erickson MD 05/11/17 Disposition: 01 DISCHARGE HOME Condition: Stable hSahzad King May 11, 2017 19:28
--- NOTE | 2017-05-11 20:05 | RADRPT ---
EXAM DATE/TIME: 05/11/2017 19:18 [facility] COMPARISON: No previous studies available for comparison. INDICATIONS : Left leg pain. MEDICAL HISTORY : Thyroid disease. Seizures. Hypoglycemia. Cardiac disorders. [place].. CAD. PVD. Hypercholesterol. Hyperten kaci. Hyperlipidemia. GERD. SURGICAL HISTORY : Appendectomy. CABG Left shoulder surgery. Right AKA. GSV removed from left leg. ENCOUNTER: Subsequent ACUITY: 1 day PAIN SCORE: 3/10 LOCATION: Left leg. TECHNIQUE: Venous ultrasound of the leg was performed from the inguinal ligament to the proximal calf. Real-sahra e, color Doppler and spectral tracing, compression and augmentation techniques were used. FINDINGS: There is normal compressibility of the deep venous system from the inguinal region to the proximal ca lf. No echogenic clot is seen in the lumen of the common femoral, femoral, popliteal, and posterior tibial veins. There is a normal response of the venous system to proximal and distal augmentation an d respiration. CONCLUSION: Normal examination. Channing Camara MD on May 11, 2017 at 20:03 Board Certified Radiologist. This report was verified electronically.
--- NOTE | 2017-05-11 20:05 | RADRPT ---
EXAM DATE/TIME: 05/11/2017 19:18 [facility] COMPARISON: No previous studies available for comparison. INDICATIONS : Left leg pain. MEDICAL HISTORY : Thyroid disease. Seizures. Hypoglycemia. Cardiac disorders. [place].. CAD. PVD. Hypercholesterol. Hyperten kaci. Hyperlipidemia. GERD. SURGICAL HISTORY : Appendectomy. CABG Left shoulder surgery. Right AKA. GSV removed from left leg. ENCOUNTER: Subsequent ACUITY: 1 day PAIN SCORE: 3/10 LOCATION: Left leg. TECHNIQUE: Venous ultrasound of the leg was performed from the inguinal ligament to the proximal calf. Real-sahra e, color Doppler and spectral tracing, compression and augmentation techniques were used. FINDINGS: There is normal compressibility of the deep venous system from the inguinal region to the proximal ca lf. No echogenic clot is seen in the lumen of the common femoral, femoral, popliteal, and posterior tibial veins. There is a normal response of the venous system to proximal and distal augmentation an d respiration. CONCLUSION: Normal examination. Channing Camara MD on May 11, 2017 at 20:03 Board Certified Radiologist. This report was verified electronically.
--- NOTE | 2017-05-11 20:05 | RADRPT ---
EXAM DATE/TIME: 05/11/2017 19:18 [facility] COMPARISON: No previous studies available for comparison. INDICATIONS : Left leg pain. MEDICAL HISTORY : Thyroid disease. Seizures. Hypoglycemia. Cardiac disorders. [place].. CAD. PVD. Hypercholesterol. Hyperten kaci. Hyperlipidemia. GERD. SURGICAL HISTORY : Appendectomy. CABG Left shoulder surgery. Right AKA. GSV removed from left leg. ENCOUNTER: Subsequent ACUITY: 1 day PAIN SCORE: 3/10 LOCATION: Left leg. TECHNIQUE: Venous ultrasound of the leg was performed from the inguinal ligament to the proximal calf. Real-sahra e, color Doppler and spectral tracing, compression and augmentation techniques were used. FINDINGS: There is normal compressibility of the deep venous system from the inguinal region to the proximal ca lf. No echogenic clot is seen in the lumen of the common femoral, femoral, popliteal, and posterior tibial veins. There is a normal response of the venous system to proximal and distal augmentation an d respiration. CONCLUSION: Normal examination. Channing Camara MD on May 11, 2017 at 20:03 Board Certified Radiologist. This report was verified electronically.
--- NOTE | 2017-05-11 20:20 | PD ---
Data Data Last Documented VS Vital Signs Date Time Temp Pulse Resp B/P (MAP) Pulse Ox O2 Delivery O2 Flow Rate FiO2 05/11/17 18:58 97.8 85 16 132/71 (91) 100 Room Air Orders Orders Us Leg Venous Doppler (05/11/17 19:05) MDM Supervised Visit with ALISSON: Yes Narrative Course The history, exam, and medical decision-making in the associated midlevel provider note were completed with my assistance. I reviewed and agree with the findings presented. I attest that I had a [id number] encounter with the patient on the same day, and personally performed and documented my assessment and findings in the medical record. *My assessment and Findings: This is a 61-year-old male who presents to the emergency department with increasing swelling of his left lower extremity. One week ago he had an ultrasound performed by his primary care physician which was reassuring. He presents today consists swelling is gotten worse and he said some oozing from the left lower extremity. He appears to have edema in the leg. He has no obvious infection. The leg is hairless and shiny, which I suspect is related to peripheral arterial disease. He had a CTA performed in 2013 which demonstrated significant peripheral arterial disease on the left. I suspect some of his symptoms are related to chronic progressive peripheral arterial disease. I don't think he has an acute threatened limb but he certainly requires follow-up as an outpatient with a vascular surgeon. This was discussed with the patient. He will be discharged home. Emily Erickson MD May 11, 2017 20:20
[2017-05-11] MEDS ORDERED: MUPI2OIN TOPICAL (20:35)
== END 2017-05-11 21:15 | disposition home or self-care (01) ==
LOC: NEPC 17:16
DX: M79.89 Other specified soft tissue disorders (principal); I25.10 Atherosclerotic heart disease of native coronary artery without angina pectoris; I10 Essential (primary) hypertension; E11.9 Type 2 diabetes mellitus without complications; E78.00 Pure hypercholesterolemia, unspecified; M19.90 Unspecified osteoarthritis, unspecified site; F41.9 Anxiety disorder, unspecified; F32.9 Major depressive disorder, single episode, unspecified; K21.9 Gastro-esophageal reflux disease without esophagitis
CPT/HCPCS: 93971

== ENCOUNTER 2017-05-14 18:55 | Inpatient (IN) | payer OTHER, MEDICAID ==
[~2017-05-14] VITALS: Ht 182.9 cm; Wt 59.5 kg
[~2017-05-14 18:55] MED LIST changes: +ASPI-99 PO; -ASPI1TAB56 PO; +ATOR1TAB18 PO; -ATOR80TA45 PO; +MUPI2OIN TOPICAL
[2017-05-14 19:00] VITALS: BP 107/60; PULSE 68; RESP 20; O2SAT 93
[2017-05-14 19:14] VITALS: RESP 18; O2SAT 98
[2017-05-14] MEDS ORDERED: SODIUM CHLORIDE 0.9% FLUSH 10 ML FLUSH IVF PRN (19:15)
--- NOTE | 2017-05-14 19:16 | PD ---
HPI Chief Complaint: Diabetic Time Seen by Provider: 19:12 Travel History International Travel<30 days: No Contact w/Intl Traveler<30days: No Traveled to known affect area: No History of Present Illness HPI The patient's 61 years old and arrives by EMS. EMS was activated due to unresponsive state. On scene the blood glucose was 20. He received dextrose 10 and a blood glucose increased to 170. Vital signs normal according to EMS. History is limited to that provided by EMS due to altered mental status. The patient's roommate called 911. Location generalized/endocrine. Timing constant. PFSH Past Medical History Hx Anticoagulant Therapy: Yes Arthritis: Yes Asthma: No Autoimmune Disease: No Blood Disorders: No Anxiety: Yes Depression: Yes Heart Rhythm Problems: No Cancer: No Cardiovascular Problems: Yes High Cholesterol: Yes Chemotherapy: No Chest Pain: No Congestive Heart Failure: No COPD: No Cerebrovascular Accident: No Coronary Artery Disease: Yes Diabetes: Yes Diminished Hearing: Yes Endocrine: Yes Gastrointestinal Disorders: Yes (ESOPHAGEAL ULCER?stricture, stretch 1 1/2 yr ago) GERD: Yes Glaucoma: No Genitourinary: No Headaches: No Hepatitis: No Hiatal Hernia: No Hypertension: Yes Immune Disorder: No Implanted Vascular Access Dvce: Yes Kidney Stones: No Musculoskeletal: Yes (cervical and lumbar spine pt states he has bulging disc R AKA) Neurologic: Yes (NEUROPATHY pvd) Psychiatric: No Reproductive: No Respiratory: No Immunizations Current: No Migraines: No Myocardial Infarction: Yes Radiation Therapy: No Renal Failure: No Seizures: Yes (PER PT SECONDARY TO HYPOGLYCEMIA) Sickle Cell Disease: No Sleep Apnea: No Thyroid Disease: Yes Ulcer: No PNEUMOCCOCAL Vaccine (Year): 2 Past Surgical History Abdominal Surgery: Yes (EXP. LEFT BRACHIAL PLEXIS,APPEND., COLECTOMY) AICD: No Appendectomy: Yes Arteriovenous Shunt: No Body Medical Devices: Right leg amputaion wears prosthesis Cardiac Surgery: Yes (CABGX4) Cholecystectomy: No Coronary Artery Bypass Graft: Yes (2004) Ear Surgery: No Endocrine Surgery: No Eye Surgery: No Genitourinary Surgery: No Gynecologic Surgery: No Insulin Pump: No Joint Replacement: No Neurologic Surgery: No Oral Surgery: No Pacemaker: No Thoracic Surgery: Yes (L5, S1, fusions) Tonsillectomy: Yes Other Surgery: Yes (2 HYDROCELE) Social History Alcohol Use: No Tobacco Use: No (reports quit 12/15/15) Substance Use: No Allergies-Medications (Allergen,Severity, Reaction): Coded Allergies: morphine (Verified Adverse Reaction, Severe, STS HE BECOMES VIOLENT., ) Uncoded Allergies: UNFRACTIONATED HEPARIN (Adverse Reaction, Severe, PT UNSURE OF REACTION, ) patient states he's not allergic, " I just bleed easily", explained to patient drug's purpose. Reported Meds & Prescriptions Reported Meds & Active Scripts Active Mupirocin Topical (Mupirocin) 2 % Oint 1 Applic TOPICAL BID Hydrochlorothiazide 25 Mg Tab 25 Mg PO DAILY Lisinopril 10 Mg Tab 10 Mg PO Q12HR Atorvastatin (Atorvastatin Calcium) 80 Mg Tab 80 Mg PO HS 30 Days Prilosec (Omeprazole Magnesium) 20 Mg Tab 1 Tab PO BID Lyrica (Pregabalin) 100 Mg Cap 100 Mg PO TID Levemir Inj (Insulin Detemir) 1,000 unit/ 10 ML Vial 8 Units SQ BID 30 Days Do not mix with any other Insulin. Novolog Inj (Insulin Aspart) 1,000 Unit/10 Ml Vial 1-9 Units SQ ACHS sugars less than 70,(0)units; sugars 150-199,(1) unit; sugars 200-249,(3) units; sugars 250-299,(5) units; sugars 300-349,(7) units; sugars greater than 349,(9) units. inform PCP if < 70 or > 400. Adult Aspirin EC Low Strength (Aspirin) 81 Mg Tabec 81 Mg PO DAILY 30 Days Norvasc (Amlodipine Besylate) 5 Mg Tab 5 Mg PO DAILY Nortriptyline (Nortriptyline HCl) 75 Mg Cap 75 Mg PO HS Plavix (Clopidogrel Bisulfate) 75 Mg Tab 75 Mg PO DAILY Synthroid (Levothyroxine Sodium) 100 Mcg Tab 100 Mcg PO DAILY@06 [place] (Hydrocodone-Acetaminophen) 10-325 Mg Tab 1 Tab PO Q6HR Carvedilol 6.25 Mg Tab 6.25 Mg PO BID Reported B12 (Cyanocobalamin) 1,000 Mcg Tab 1,000 Mcg PO DAILY Review of Systems ROS Limitations: Altered Mental Status Physical Exam Narrative GENERAL: 61-year-old male somewhat chronically ill in appearance gcs 15 although very slow to answer questions SKIN: Warm and dry. HEAD: Atraumatic. Normocephalic. EYES: Pupils equal and round. No scleral icterus. No injection or drainage. ENT: No nasal bleeding or discharge. Mucous membranes pink and moist. NECK: Trachea midline. No JVD. CARDIOVASCULAR: Regular rate and rhythm. RESPIRATORY: No accessory muscle use. Clear to auscultation. Breath sounds equal bilaterally. GASTROINTESTINAL: Abdomen soft, non-tender, nondistended. Hepatic and splenic margins not palpable. MUSCULOSKELETAL: Extremities without clubbing, cyanosis, or edema. No obvious deformities. NEUROLOGICAL: GCS 15 although slow to answer questions. Again O 3. Moving all extremities. Pupils equal round reactive to light. PSYCHIATRIC: Appropriate mood and affect; insight and judgment normal. Data Data Last Documented VS Vital Signs Date Time Temp Pulse Resp B/P (MAP) Pulse Ox O2 Delivery O2 Flow Rate FiO2 05/14/17 21:38 76 18 104/62 (76) 100 Nasal Cannula 2.00 Rectal temperature reported 93.1 Orders Orders Complete Blood Count With Diff (05/14/17 19:12) Comprehensive Metabolic Panel (05/14/17 19:12) Blood Glucose (05/14/17 19:12) Blood Glucose (05/14/17 20:12) Blood Glucose (05/14/17 19:12) Ecg Monitoring (05/14/17 19:12) Iv Access Insert/Monitor (05/14/17 19:12) Oximetry (05/14/17 19:12) NPO (05/14/17 19:12) Sodium Chlor 0.9% 1000 Ml Inj (Ns 1000 M (05/14/17 19:42) Sodium Chloride 0.9% Flush (Ns Flush) (05/14/17 19:15) Lipase (05/14/17 19:12) Lactic Acid Sepsis Protocol (05/14/17 19:26) Urinalysis - C+S If Indicated (05/14/17 19:26) Blood Culture (05/14/17 19:26) Chest, Single Ap (05/14/17 19:26) Piperacil-Tazo 4.5 Gm Premix (Zosyn 4.5 (05/14/17 19:26) Warming [place] / Warming Syst PRN (05/14/17 19:26) Sodium Chlor 0.9% 1000 Ml Inj (Ns 1000 M (05/14/17 20:30) Dext 5%-Nacl 0.45% 1000 Ml Inj (D5w-1/2 (05/14/17 21:15) Admit Order (Ed Use Only) (05/14/17 21:55) Labs Laboratory Tests Test 05/14/17 19:41 05/14/17 20:32 White Blood Count 10.1 TH/MM3 Red Blood Count 3.67 MIL/MM3 Hemoglobin 11.2 GM/DL Hematocrit 34.1 % Mean Corpuscular Volume 92.9 FL Mean Corpuscular Hemoglobin 30.5 PG Mean Corpuscular Hemoglobin Concent 32.9 % Red Cell Distribution Width 15.7 % Platelet Count 241 TH/MM3 Mean Platelet Volume 9.7 FL Neutrophils (%) (Auto) 81.6 % Lymphocytes (%) (Auto) 11.7 % Monocytes (%) (Auto) 3.0 % Eosinophils (%) (Auto) 2.3 % Basophils (%) (Auto) 1.4 % Neutrophils # (Auto) 8.2 TH/MM3 Lymphocytes # (Auto) 1.2 TH/MM3 Monocytes # (Auto) 0.3 TH/MM3 Eosinophils # (Auto) 0.2 TH/MM3 Basophils # (Auto) 0.1 TH/MM3 CBC Comment DIFF FINAL Differential Comment Blood Urea Nitrogen 23 MG/DL Creatinine 0.87 MG/DL Random Glucose 44 MG/DL Total Protein 5.8 GM/DL Albumin 2.6 GM/DL Calcium Level 7.8 MG/DL Alkaline Phosphatase 135 U/L Aspartate Amino Transf (AST/SGOT) 15 U/L Alanine Aminotransferase (ALT/SGPT) 18 U/L Total Bilirubin 0.2 MG/DL Sodium Level 138 MEQ/L Potassium Level 3.7 MEQ/L Chloride Level 106 MEQ/L Carbon Dioxide Level 26.4 MEQ/L Anion Gap 6 MEQ/L Estimat Glomerular Filtration Rate 90 ML/MIN Lactic Acid Level 1.5 mmol/L Lipase 50 U/L Thyroid Stimulating Hormone 3rd Gen 0.880 uIU/ML MDM Medical Decision Making Medical Screen Exam Complete: Yes Emergency Medical Condition: Yes Medical Record Reviewed: Yes Differential Diagnosis Sepsis, severe sepsis, hypoglycemia, UTI, pneumonia, meningitis, colitis, multiorgan failure Narrative Course CBC & BMP Diagram 05/14/17 19:41 05/14/17 20:32 Total Protein 5.8 L, Albumin 2.6 L, Calcium Level 7.8 L, Alkaline Phosphatase 135 H, Aspartate Amino Transf (AST/SGOT) 15, Alanine Aminotransferase (ALT/SGPT ) 18, Total Bilirubin 0.2 Lactic acid 1.5 UTOX: + opiates UA: No UTI initial rectal temp 93.7 rectal Etiology of hypothermia unclear d5 1/2ns started d/w Dr Lynch Sepsis Criteria SIRS Criteria (2 or more): Temp > 100.9 or < 96.8 Diagnosis Primary Impression: Hypoglycemia Additional Impression: Hypothermia Qualified Codes: T68.XXXA - Hypothermia, initial encounter Admitting Information Admitting Physician Requests: Admit Jamil Richter MD May 14, 2017 19:16
[2017-05-14] MEDS ORDERED: PIPERACIL-TAZO 4.5 GM PREMIX 100 ML IV STA (19:26)
[2017-05-14] MEDS ORDERED: SODIUM CHLOR 0.9% 1000 ML INJ 1,000 ML IV ONE ×2 (19:42→20:30)
--- NOTE | 2017-05-14 20:05 | RADRPT ---
EXAM DATE/TIME: 05/14/2017 19:36 [facility] COMPARISON: CHEST SINGLE AP, April 16, 2017, 22:01. INDICATIONS : Fever. MEDICAL HISTORY : Cardiovascular disease. Myocardial infarction. Gastroesophageal reflux disease. Hypertension. Cor onary artery disease. Diabetes. SURGICAL HISTORY : CABG. Appendectomy. Cholecystectomy. ENCOUNTER: Initial ACUITY: 1 day PAIN SCORE: Non-responsive. LOCATION: Bilateral chest FINDINGS: A single view of the chest demonstrates the lungs to be symmetrically aerated without evidence of mas s, infiltrate or effusion. The cardiomediastinal contours are unremarkable. Osseous structures are intact. The patient is again noted to be status post median sternotomy. The patient is mildly rotated to the left. CONCLUSION: No acute disease. There is no evidence of pneumonia. Chris Vital MD on May 14, 2017 at 20:03 Board Certified Radiologist. This report was verified electronically.
[2017-05-14 20:21] LABS: AUTOMATED NEUTROPHIL # 8.2 TH/MM3 (1.8-7.7); BASOPHIL # 0.1 TH/MM3 (0-0.2); BASOPHIL % 1.4 % (0.0-2.0); EOSINOPHIL # 0.2 TH/MM3 (0-0.4); EOSINOPHIL % 2.3 % (0.0-4.0); HEMATOCRIT 34.1 % (39.0-51.0); HEMOGLOBIN 11.2 GM/DL (13.0-17.0); LYMPH % 11.7 % (9.0-44.0); LYMPHOCYTE # 1.2 TH/MM3 (1.0-4.8); MEAN CELL VOLUME 92.9 FL (80.0-100.0); MEAN CORPUSCULAR HEMOGLOBIN 30.5 PG (27.0-34.0); MEAN CORPUSCULAR HGB CONC 32.9 % (32.0-36.0); MEAN PLATELET VOLUME 9.7 FL (7.0-11.0); MONOCYTE # 0.3 TH/MM3 (0-0.9); NEUT % 81.6 % (16.0-70.0); PLATELET COUNT 241 TH/MM3 (150-450); RED BLOOD COUNT 3.67 MIL/MM3 (4.50-5.90); RED CELL DISTRIBUTION WIDTH 15.7 % (11.6-17.2); WHITE BLOOD COUNT 10.1 TH/MM3 (4.0-11.0)
[2017-05-14 21:11] LABS: ALBUMIN 2.6 GM/DL (3.4-5.0); ALT (GPT) 18 U/L (12-78); AST (GOT) 15 U/L (15-37); BICARBONATE 26.4 MEQ/L (21.0-32.0); BLOOD UREA NITROGEN 23 MG/DL (7-18); CALCIUM 7.8 MG/DL (8.5-10.1); CHLORIDE 106 MEQ/L (98-107); CREATININE 0.87 MG/DL (0.60-1.30); GLOMERULAR FILTRATION RATE 90 ML/MIN (>89); LIPASE 50 U/L (73-393); SODIUM (NA) 138 MEQ/L (136-145)
[2017-05-14 21:14] LABS: GLUCOSE,RANDOM 44 MG/DL (74-106)
[2017-05-14 21:15] LABS: ALKALINE PHOSPHATASE 135 U/L (45-117); TOTAL BILIRUBIN ADULT 0.2 MG/DL (0.2-1.0); TOTAL PROTEIN 5.8 GM/DL (6.4-8.2)
[2017-05-14] MEDS ORDERED: DEXT 5%-NACL 0.45% 1000 ML INJ 1,000 ML IV SCH (21:15)
[2017-05-14 21:38] VITALS: BP 104/62; PULSE 76; RESP 18; O2SAT 100
[2017-05-14 22:12] VITALS: BP 101/58; PULSE 80; RESP 18; TEMP 97.4; O2SAT 98
[2017-05-14] MEDS ORDERED: SENNOSIDES 8.6 MG TAB PO PRN (22:30)
[2017-05-14] MEDS ORDERED: NALOXONE HCL 0.4 MG/ML AMP IV PUSH PRN (22:30)
[2017-05-14] MEDS ORDERED: MAGNESIUM HYDROXIDE SUSP 30 ML CUP PO PRN (22:30)
[2017-05-14] MEDS ORDERED: BISACODYL 10 MG SUPP RECTAL PRN (22:30)
[2017-05-14] MEDS ORDERED: SODIUM CHLORIDE 0.9% FLUSH 10 ML FLUSH IV FLUSH PRN (22:30)
[2017-05-14] MEDS ORDERED: ONDANSETRON HCL 4 MG/2 ML VIAL IVP PRN (22:30)
[2017-05-14] MEDS ORDERED: LACTULOSE SYRUP 20 GM/30 ML CUP PO PRN (22:30)
--- NOTE | 2017-05-14 22:36 | HHI.HP ---
[facility] Unknown Admission Diagnosis Hypoglycemia, Hypothermia Diagnoses: Chief Complaint: low blood sugar Travel History International Travel<30 Days: No Contact w/Intl Traveler <30 Da: No Traveled to Known Affected Are: No History of Present Illness Written by ARIC Simms acting as scribe for Dr. Bailey] on 05/14/17 at 22:32. 61-year-old male with a history of hypertension, diabetes, CAD, hyperlipidemia, COPD, neuropathy was brought in by EMS due to an unresponsive state. According to EMS patient was found to have a glucose of 20. Upon examination patient is very sleepy. He states he has has a change in insulin lately but unsure what it was but he is taking it as prescribed. He does not remember the events leading up to him becoming unresponsive. He denies any nausea, vomiting, chest pain, sob , cough, or dizziness. 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 Novolog Inj (Insulin Aspart) 1,000 Unit/10 Ml Vial 1-9 Units SQ ACHS sugars less than 70,(0)units; sugars 150-199,(1) unit; sugars 200-249,(3) units; sugars 250-299,(5) units; sugars 300-349,(7) units; sugars greater than 349,(9) units. inform PCP if < 70 or > 400. Adult Aspirin EC Low Strength (Aspirin) 81 Mg Tabec 81 Mg PO DAILY 30 Days Norvasc (Amlodipine Besylate) 5 Mg Tab 5 Mg PO DAILY Nortriptyline (Nortriptyline HCl) 75 Mg Cap 75 Mg PO HS Plavix (Clopidogrel Bisulfate) 75 Mg Tab 75 Mg PO DAILY Synthroid (Levothyroxine Sodium) 100 Mcg Tab 100 Mcg PO DAILY@06 [place] (Hydrocodone-Acetaminophen) 10-325 Mg Tab 1 Tab PO Q6HR Carvedilol 6.25 Mg Tab 6.25 Mg PO BID Reported B12 (Cyanocobalamin) 1,000 Mcg Tab 1,000 Mcg PO DAILY Allergies: Coded Allergies: morphine (Verified Adverse Reaction, Severe, STS HE BECOMES VIOLENT., ) Uncoded Allergies: UNFRACTIONATED HEPARIN (Adverse Reaction, Severe, PT UNSURE OF REACTION, ) patient states he's not allergic, " I just bleed easily", explained to patient drug's purpose. Active Ordered Medications Current Medications Medications (Trade) Dose Ordered Sig/Nuzhat Route Start Time Stop Time Status Last Admin Dextrose/Sodium Chloride 1,000 ml @ 125 mls/hr Q8H IV 05/14/17 21:15 05/14/17 21:36 (NS Flush) 2 ml UNSCH PRN IV FLUSH 05/14/17 22:30 (NS Flush) 2 ml BID IV FLUSH 05/15/17 09:00 (Zofran Inj) 4 mg Q6H PRN IVP 05/14/17 22:30 (Heparin Inj) 5,000 units Q12H SQ 05/14/17 22:30 (Narcan Inj) 0.4 mg UNSCH PRN IV PUSH 05/14/17 22:30 (Milk Of Magnesia Liq) 30 ml Q12H PRN PO 05/14/17 22:30 (Senokot) 17.2 mg Q12H PRN PO 05/14/17 22:30 (Dulcolax Supp) 10 mg DAILY PRN RECTAL 05/14/17 22:30 (Lactulose Liq) 30 ml DAILY PRN PO 05/14/17 22:30 (NovoLOG SUPPLEMENTAL SCALE) 1 ACHS SLIDING SCALE SQ 05/15/17 08:00 Family History He does not know his family history Social History Tobacco use: 6-7 a day for a long time Alcohol use: denies Illicit drug use: Denies Physical Exam Vital Signs Vital Signs Date Time Temp Pulse Resp B/P (MAP) Pulse Ox O2 Delivery O2 Flow Rate FiO2 05/14/17 22:12 97.4 80 18 101/58 (72) 98 Nasal Cannula 2.00 05/14/17 21:38 76 18 104/62 (76) 100 Nasal Cannula 2.00 05/14/17 19:14 18 98 Nasal Cannula 2.00 05/14/17 19:00 68 20 107/60 (76) 93 Physical Exam GENERAL: This is a well-nourished, well-developed patient, in no apparent distress. SKIN: No rashes, ecchymoses or lesions. Cool and dry. Multiple scratches to right hand. HEAD: Atraumatic. Normocephalic. EYES: Pupils equal round and reactive. Extraocular motions intact. ENT: Nose without bleeding, purulent drainage or septal hematoma. Airway patent. NECK: Trachea midline. No JVD or lymphadenopathy. CARDIOVASCULAR: Regular rate and rhythm without murmurs, gallops, or rubs. RESPIRATORY: Clear to auscultation. Breath sounds equal bilaterally. No wheezes , rales, or rhonchi. GASTROINTESTINAL: Abdomen soft, non-tender, nondistended. MUSCULOSKELETAL: R BKA, no edema. No joint tenderness, effusion, or edema noted. No calf tenderness. NEUROLOGICAL: Awake and alert. Motor and sensory grossly within normal limits. Normal speech. Laboratory Laboratory Tests Test 05/14/17 19:41 05/14/17 20:32 White Blood Count 10.1 Red Blood Count 3.67 Hemoglobin 11.2 Hematocrit 34.1 Mean Corpuscular Volume 92.9 Mean Corpuscular Hemoglobin 30.5 Mean Corpuscular Hemoglobin Concent 32.9 Red Cell Distribution Width 15.7 Platelet Count 241 Mean Platelet Volume 9.7 Neutrophils (%) (Auto) 81.6 Lymphocytes (%) (Auto) 11.7 Monocytes (%) (Auto) 3.0 Eosinophils (%) (Auto) 2.3 Basophils (%) (Auto) 1.4 Neutrophils # (Auto) 8.2 Lymphocytes # (Auto) 1.2 Monocytes # (Auto) 0.3 Eosinophils # (Auto) 0.2 Basophils # (Auto) 0.1 CBC Comment DIFF FINAL Differential Comment Blood Urea Nitrogen 23 Creatinine 0.87 Random Glucose 44 Total Protein 5.8 Albumin 2.6 Calcium Level 7.8 Alkaline Phosphatase 135 Aspartate Amino Transf (AST/SGOT) 15 Alanine Aminotransferase (ALT/SGPT) 18 Total Bilirubin 0.2 Sodium Level 138 Potassium Level 3.7 Chloride Level 106 Carbon Dioxide Level 26.4 Anion Gap 6 Estimat Glomerular Filtration Rate 90 Lactic Acid Level 1.5 Lipase 50 Date/Time Source Procedure Growth Status 05/14/17 19:53 Blood Peripheral Aerobic Blood Culture Pending Received 05/14/17 19:53 Blood Peripheral Anaerobic Blood Culture Pending Received Result Diagram: 05/14/17194005/14/172031 Imaging Last Impressions Chest X-Ray 05/14/171925 Signed Impressions: Service Date/Time: Sunday, May 14, 2017 19:36 - CONCLUSION: No acute disease. There is no evidence of pneumonia. MD Ankita Oakes VTE Risk Assessment Caprini VTE Risk Assessment: Mod/High Risk (score >= 2) Caprini Risk Assessment Model Point Value = 1 Point Value = 2 Point Value = 3 Point Value = 5 Age 41-60 Minor surgery BMI > 25 kg/m2 Swollen legs Varicose veins or History of unexplained or recurrent spontaneous Oral contraceptives or hormone replacement Sepsis (< 1 month) Serious lung disease, including pneumonia (< 1 month) Abnormal pulmonary function Acute myocardial infarction Congestive heart failure (< 1 month) History of inflammatory bowel disease Medical patient at bed rest Age 61-74 Arthroscopic surgery Major open surgery (> 45 min) Laparoscopic surgery (> 45 min) Malignancy Confined to bed (> 72 hours) Immobilizing plaster cast Central venous access Age >= 75 History of VTE Family history of VTE Factor V Leiden Prothrombin [id number] Lupus anticoagulant Anticardiolipin antibodies Elevated serum homocysteine Heparin-induced thrombocytopenia Other congenital or acquired thrombophilia Stroke (< 1 month) Elective arthroplasty Hip, pelvis, or leg fracture Acute spinal cord injury (< 1 month) Prophylaxis Regimen Total Risk Factor Score Risk Level Prophylaxis Regimen 0-1 Low Early ambulation 2 Moderate Order ONE of the following: *Sequential Compression Device (SCD) *Heparin 5000 units SQ BID 3-4 Higher Order ONE of the following medications: *Heparin 5000 units SQ TID *Enoxaparin/Lovenox 40 mg SQ daily (WT < 150 kg, CrCl > 30 mL/min) *Enoxaparin/Lovenox 30 mg SQ daily (WT < 150 kg, CrCl > 10-29 mL/min) *Enoxaparin/Lovenox 30 mg SQ BID (WT < 150 kg, CrCl > 30 mL/min) AND/OR *Sequential Compression Device (SCD) 5 or more Highest Order ONE of the following medications: *Heparin 5000 units SQ TID (Preferred with Epidurals) *Enoxaparin/Lovenox 40 mg SQ daily (WT < 150 kg, CrCl > 30 mL/min) *Enoxaparin/Lovenox 30 mg SQ daily (WT < 150 kg, CrCl > 10-29 mL/min) *Enoxaparin/Lovenox 30 mg SQ BID (WT < 150 kg, CrCl > 30 mL/min) AND *Sequential Compression Device (SCD) Assessment and Plan Assessment and Plan 61-year-old male with a history of hypertension, diabetes, CAD, hyperlipidemia, COPD, neuropathy was brought in by EMS due to an unresponsive state. //Hypoglycemia, in a patient with diabetes and insulin use //Metabolic encephalopathy secondary to hypoglycemia. Improving. -Suspect secondary to medication mismanagement. -IVF with D51/2 NS -Accu checks -neuro checks - When improved, would benefit from home health for medication management, diabetic education on discharge. //HTN, chronic -Resume home medication when verified, monitor vitals, prns if needed DVT prophylaxis: Heparin Discussed Condition With Patient and ED physician Physician Certification 2 Midnight Certification Type: Admission for Inpatient Services Order for Inpatient Services The services are ordered in accordance with Medicare regulations or non- Medicare payer requirements, as applicable. In the case of services not specified as inpatient-only, they are appropriately provided as inpatient services in accordance with the 2-midnight benchmark. Estimated LOS (days): 2 days is the estimated time the patient will need to remain in the hospital, assuming treatment plan goals are met and no additional complications. Post-Hospital Plan: Not yet determined Notes: This note was transcribed by rebecca Urias. I, Dr. Rudolph Lynch personally performed the history, physical exam, and medical decision making; and confirmed the accuracy of the information in the transcribed note. Authenticated by Dr. Rudolph Lynch on 05/15/17 at 05:50. Monserrat Urias May 14, 2017 22:36 Rudolph Lynch MD May 15, 2017 05:54
[2017-05-14 23:20] VITALS: BP 102/60; PULSE 85; RESP 18; O2SAT 98
[2017-05-14 23:54] VITALS: BP 111/59; PULSE 80; RESP 12; TEMP 97.7; O2SAT 100
[2017-05-15] VITALS (12 sets, daily range): BP systolic 112–139; BP diastolic 57–66; PULSE 85–111; RESP 17–23; TEMP 97.9–99.3; O2SAT 98–99
[2017-05-15 01:00] LABS: BILIRUBIN, URINE NEG (NEG); BLOOD, URINE NEG (NEG); GLUCOSE,URINE 1000 mg/dL (NEG); KETONE, URINE NEG (NEG); MUCUS URINE FEW /lpf (OCC); NITRITE,URINE NEG (NEG); PH, URINE 5.5 (5.0-8.5); URINE COLOR YELLOW (YELLW/STRAW); URINE LEUKOCYTE ESTERASE NEG (NEG)
[2017-05-15] MEDS: HEPARIN SODIUM - SQ 10,000 UNITS/ML VIAL SQ SCH ×3 (01:05→21:01)
[2017-05-15] MEDS ORDERED: INSULIN ASPART 1,000 UNITS/10 ML VIAL SQ ONE (05:15)
[2017-05-15] MEDS: SODIUM CHLOR 0.45% 1000 ML INJ 1,000 ML IV SCH ×2 (05:19→21:02)
[2017-05-15 06:58] LABS: AUTOMATED NEUTROPHIL # 11.8 TH/MM3 (1.8-7.7); BASOPHIL # 0.1 TH/MM3 (0-0.2); BASOPHIL % 0.8 % (0.0-2.0); EOSINOPHIL # 0.2 TH/MM3 (0-0.4); EOSINOPHIL % 1.6 % (0.0-4.0); HEMATOCRIT 29.6 % (39.0-51.0); HEMOGLOBIN 9.7 GM/DL (13.0-17.0); LYMPH % 12.4 % (9.0-44.0); LYMPHOCYTE # 1.8 TH/MM3 (1.0-4.8); MEAN CELL VOLUME 93.1 FL (80.0-100.0); MEAN CORPUSCULAR HEMOGLOBIN 30.7 PG (27.0-34.0); MEAN PLATELET VOLUME 9.4 FL (7.0-11.0); MONO % 2.7 % (0.0-8.0); MONOCYTE # 0.4 TH/MM3 (0-0.9); NEUT % 82.5 % (16.0-70.0); PLATELET COUNT 221 TH/MM3 (150-450); RED BLOOD COUNT 3.18 MIL/MM3 (4.50-5.90); RED CELL DISTRIBUTION WIDTH 15.4 % (11.6-17.2); WHITE BLOOD COUNT 14.3 TH/MM3 (4.0-11.0)
[2017-05-15 07:34] LABS: ALBUMIN 2.7 GM/DL (3.4-5.0); ALKALINE PHOSPHATASE 140 U/L (45-117); ALT (GPT) 20 U/L (12-78); AST (GOT) 23 U/L (15-37); BLOOD UREA NITROGEN 19 MG/DL (7-18); CALCIUM 7.7 MG/DL (8.5-10.1); CHLORIDE 101 MEQ/L (98-107); CREATININE 1.09 MG/DL (0.60-1.30); GLOMERULAR FILTRATION RATE 69 ML/MIN (>89); GLUCOSE,RANDOM 385 MG/DL (74-106); SODIUM (NA) 132 MEQ/L (136-145); TOTAL BILIRUBIN ADULT 0.3 MG/DL (0.2-1.0); TOTAL PROTEIN 5.9 GM/DL (6.4-8.2)
[2017-05-15] MEDS: INSULIN ASPART SUPPLEMENTAL SCALE SQ SCH ×4 (08:00→21:00)
[2017-05-15] MEDS: CARVEDILOL 3.125 MG TAB PO SCH ×2 (08:27→21:01)
[2017-05-15] MEDS ORDERED: CARVEDILOL 6.25 MG TAB PO SCH (09:00)
[2017-05-15] MEDS: amLODIPine BESYLATE 5 MG TAB PO SCH ×2 (09:00→10:27)
--- NOTE | 2017-05-15 09:42 | HHI.PR ---
Subjective Remarks Follow up hypoglycemia. Patient reports pain in his left leg that started about 2 weeks ago. Denies chest pain, dyspnea. Does not remember how much insulin he used yesterday. Objective Vitals Vital Signs Date Time Temp Pulse Resp B/P (MAP) Pulse Ox O2 Delivery O2 Flow Rate FiO2 05/15/17 08:00 99.3 100 22 112/57 (75) 98 05/15/17 08:00 100 05/15/17 06:00 111 05/15/17 04:00 97.9 93 23 126/61 (82) 98 05/15/17 04:00 89 05/15/17 02:00 85 05/15/17 00:00 87 05/14/17 23:54 97.7 80 12 111/59 (76) 100 05/14/17 23:30 05/14/17 23:20 85 18 102/60 (74) 98 2.00 05/14/17 22:12 97.4 80 18 101/58 (72) 98 Nasal Cannula 2.00 05/14/17 21:38 76 18 104/62 (76) 100 Nasal Cannula 2.00 05/14/17 19:14 18 98 Nasal Cannula 2.00 05/14/17 19:00 68 20 107/60 (76) 93 I/O 05/14/17 05/14/17 05/14/17 05/15/17 05/15/17 05/15/17 07:00 15:00 23:00 07:00 15:00 23:00 Intake Total 2100 ml 840 ml Output Total 1300 ml Balance 2100 ml -460 ml Intake Oral 240 ml IV Total 2100 ml 600 ml Output Urine Total 1300 ml Result Diagram: 05/15/1762905/15/17629 Imaging Last Impressions Chest X-Ray 05/14/171925 Signed Impressions: Service Date/Time: Sunday, May 14, 2017 19:36 - CONCLUSION: No acute disease. There is no evidence of pneumonia. Chris Vital MD Objective Remarks General: Disheveled male in no acute distress. Heart: Regular rate and rhythm. 2/6 systolic murmur. Lungs: Clear to auscultation bilaterally. No wheezes, rales, or rhonchi. Breathing is nonlabored. Abdomen: Soft, nontender, nondistended. Extremities: Right BKA. Left lower leg with multiple wounds, surrounding erythema. No active drainage/bleeding. Psych: Alert and oriented. Procedures None Urinary Catheter: No Vascular Central Line Catheter: No A/P Problem List: (1) Leukocytosis ICD Code: D72.829 - Elevated white blood cell count, unspecified (2) Anemia ICD Code: D64.9 - Anemia, unspecified (3) Leg wound, left ICD Code: S81.802A - Unspecified open wound, left lower leg, initial encounter (4) Diabetes mellitus, type II, insulin dependent ICD Code: E11.9 - Insulin dependent type 2 diabetes mellitus; Z79.4 - custodial (current) use of insulin Status: Chronic (5) GERD (gastroesophageal reflux disease) ICD Code: K21.9 - Gastro-esophageal reflux disease without esophagitis Status: Chronic (6) Hypothyroidism ICD Code: E03.9 - Hypothyroidism, unspecified Status: Acute (7) Hypertension ICD Code: I10 - Essential (primary) hypertension Status: Chronic Assessment and Plan 1. Severe hypoglycemia: Resolved. Patient took an unknown amount of insulin yesterday. Glucose now elevated. 2. Diabetes mellitus, insulin dependent: Monitor Accu-checks and cover with sliding scale insulin. Restart Levemir. Diabetic diet. 3. Left leg wounds, cellulitis: Wound care consult. Add antibiotics. He did receive a dose of Zosyn in the ER. 4. Hypertension: Continue amlodipine, Coreg, lisinopril. 5. Hypothyroidism: Continue synthroid. 6. PAD: Continue Plavix, aspirin, statin. 7. DVT prophylaxis: Heparin. Joseph De La Paz MD May 15, 2017 09:42
[2017-05-15] MEDS ORDERED: Vancomycin Consult Pharmacy 1 EA OTHER SCH (09:45)
[2017-05-15] MEDS: MULTIVITAMIN TAB PO SCH (09:45)
[2017-05-15] MEDS: THIAMINE HCL 100 MG TAB PO SCH (09:45)
[2017-05-15] MEDS: FOLIC ACID 1 MG TAB PO SCH (09:52)
[2017-05-15] MEDS: HYDROCHLOROTHIAZIDE 25 MG TAB PO SCH (09:53)
[2017-05-15] MEDS: ASPIRIN EC 81 MG TABEC PO SCH (09:53)
[2017-05-15] MEDS: LISINOPRIL 10 MG TAB PO SCH ×2 (09:55→21:01)
[2017-05-15] MEDS: PREGABALIN 100 MG CAP PO SCH ×3 (09:56→17:52)
[2017-05-15] MEDS: CLOPIDOGREL 75 MG TAB PO SCH (09:58)
[2017-05-15] MEDS: SODIUM CHLORIDE 0.9% FLUSH 10 ML FLUSH IV FLUSH SCH ×2 (09:59→21:02)
[2017-05-15] MEDS: PANTOPRAZOLE SOD 20 MG DELAYED RELEASE TAB PO SCH ×2 (10:00→21:01)
[2017-05-15] MEDS: CYANOCOBALAMIN 1,000 MCG TAB PO SCH (10:27)
[2017-05-15] MEDS: PIPERACIL-TAZO 3.375 GM PREMIX 50 ML IV SCH ×3 (10:27→20:58)
[2017-05-15] MEDS: VANCOMYCIN 1,000 MG/NS 250 ML IV SCH ×2 (11:34)
[2017-05-15] MEDS ORDERED: ACETAMINOPHEN/HYDROcodone 325 MG/10 MG TAB PO SCH (12:00)
--- NOTE | 2017-05-15 13:39 | PD.WCN.NOT ---
Wound Consult Description: Received consult for wound management of L lower leg from Doctor De La Paz Communicated with: PARKER Miramontes and Call placed to Doctor De La Paz Recommendation: Please cleanse L lower leg with soap and water and pat dry apply moisturizer and leave open to air daily Additional Information: Patient seen on 5th floor [facility] [place] for evaluation of L lower leg wound management. Patient reports edema and pain to L lower leg. No edema seen today on L leg. Mild erythema is noted to L medial lower leg. Pedal pulse on L foot is weak. R leg is noted with AKA that is not recent. Patient states,"I am seeing Doctor Keon. Doctor J amputated the R leg."Dry intact scab is seen on anterior L dietz that measures ~3cm x ~1cm. Four other small wounds are noted on L calf all covered with 100% dry yellow intact crust. Wounds are not open and draining and appear to be resolving Left all crusts and scab open to air. Patient may need vascular consult due to pain in L leg and weak pedal pulse. Christine Malcolm [facility] May 15, 2017 13:39
--- NOTE | 2017-05-15 13:39 | PD.WCN.NOT ---
Wound Consult Description: Received consult for wound management of L lower leg from Doctor De La Paz Communicated with: PARKER Miramontes and Call placed to Doctor De La Paz Recommendation: Please cleanse L lower leg with soap and water and pat dry apply moisturizer and leave open to air daily Additional Information: [place] 5th [place] [facility] [place] lower leg wound management. Patient reports edema and pain to L lower leg. No edema seen today on L leg. Mild erythema is noted to L medial lower leg. Pedal pulse on L foot is weak. R leg is noted with AKA that is not recent. Patient states,"I am seeing Doctor Keon. Doctor J amputated the R leg."Dry intact scab is seen on anterior L dietz that measures ~3cm x ~1cm. Four other small wounds are noted on L calf all covered with 100% dry yellow intact crust. Wounds are not open and draining and appear to be resolving Left all crusts and scab open to air. Patient may need vascular consult due to pain in L leg and weak pedal pulse. Christine Malcolm [facility] May 15, 2017 13:39
--- NOTE | 2017-05-15 13:39 | PD.WCN.NOT ---
Wound Consult Description: Received consult for wound management of L lower leg from Doctor De La Paz Communicated with: PARKER Miramontes and Call placed to Doctor De La Paz Recommendation: Please cleanse L lower leg with soap and water and pat dry apply moisturizer and leave open to air daily Additional Information: Patient seen on 5th floor [facility] [place] evaluation of L lower leg wound management. Patient reports edema and pain to L lower leg. No edema seen today on L leg. Mild erythema is noted to L medial lower leg. Pedal pulse on L foot is weak. R leg is noted with AKA that is not recent. Patient states,"I am seeing Doctor Keon. Doctor J amputated the R leg."Dry intact scab is seen on anterior L dietz that measures ~3cm x ~1cm. Four other small wounds are noted on L calf all covered with 100% dry yellow intact crust. Wounds are not open and draining and appear to be resolving Left all crusts and scab open to air. Patient may need vascular consult due to pain in L leg and weak pedal pulse. Christine Malcolm [facility] May 15, 2017 13:39
[2017-05-15] MEDS ORDERED: INSULIN DETEMIR 100 UNITS/ML VIAL SQ SCH (14:16)
[2017-05-15] MEDS: NORTRIPTYLINE HCL 25 MG CAP PO SCH (21:01)
[2017-05-15] MEDS: ATORVASTATIN 80 MG TAB PO SCH (21:01)
[2017-05-16] VITALS (13 sets, daily range): BP systolic 103–146; BP diastolic 52–96; PULSE 82–102; RESP 15–36; TEMP 97.4–99.1; O2SAT 96–100
[2017-05-16] MEDS: PIPERACIL-TAZO 3.375 GM PREMIX 50 ML IV SCH ×4 (03:48→20:40)
[2017-05-16] MEDS: VANCOMYCIN 1,000 MG/NS 250 ML IV SCH ×4 (05:13→22:56)
[2017-05-16] MEDS: LEVOTHYROXINE SODIUM 100 MCG TAB PO SCH (05:13)
--- NOTE | 2017-05-16 08:45 | HHI.PR ---
Subjective Remarks Follow up hypoglycemia. Patient now with elevated glucose. Only other complaint at this time is that the bed is uncomfortable and causing pain in his back. Denies chest pain, dyspnea, nausea, vomiting, abdominal pain. Objective Vitals Vital Signs Date Time Temp Pulse Resp B/P (MAP) Pulse Ox O2 Delivery O2 Flow Rate FiO2 05/16/17 06:00 97 05/16/17 04:00 98.9 95 36 146/96 (113) 96 05/16/17 04:00 95 05/16/17 02:00 93 05/16/17 00:00 93 05/16/17 00:00 99.1 93 25 105/52 (69) 96 05/15/17 22:00 94 05/15/17 20:00 99.2 92 17 121/60 (80) 99 05/15/17 20:00 92 05/15/17 18:00 93 05/15/17 16:00 99.0 95 21 123/62 (82) 05/15/17 16:00 93 05/15/17 14:00 93 05/15/17 12:00 98.5 102 20 139/66 (90) 05/15/17 12:00 103 05/15/17 10:00 100 I/O 05/15/17 05/15/17 05/15/17 05/16/17 05/16/17 05/16/17 07:00 15:00 23:00 07:00 15:00 23:00 Intake Total 840 ml 1775 ml 540 ml Output Total 1300 ml 1675 ml 1050 ml 500 ml Balance -460 ml 100 ml -510 ml -500 ml Intake Oral 240 ml 725 ml 240 ml IV Total 600 ml 1050 ml 300 ml Output Urine Total 1300 ml 1675 ml 1050 ml 500 ml # Bowel Movements 6 Result Diagram: 05/15/1762905/15/17629 Imaging Last Impressions Chest X-Ray 05/14/171925 Signed Impressions: Service Date/Time: Sunday, May 14, 2017 19:36 - CONCLUSION: No acute disease. There is no evidence of pneumonia. Chris Vital MD Objective Remarks General: Disheveled male in no acute distress. Heart: Regular rate and rhythm. 2/6 systolic murmur. Lungs: Clear to auscultation bilaterally. No wheezes, rales, or rhonchi. Breathing is nonlabored. Abdomen: Soft, nontender, nondistended. Extremities: Right BKA. Left lower leg with multiple wounds, surrounding erythema is improving. No active drainage/bleeding. Psych: Alert and oriented. Procedures None Urinary Catheter: No Vascular Central Line Catheter: No A/P Problem List: (1) Leukocytosis ICD Code: D72.829 - Elevated white blood cell count, unspecified (2) Anemia ICD Code: D64.9 - Anemia, unspecified (3) Leg wound, left ICD Code: S81.802A - Unspecified open wound, left lower leg, initial encounter (4) Diabetes mellitus, type II, insulin dependent ICD Code: E11.9 - Insulin dependent type 2 diabetes mellitus; Z79.4 - longterm (current) use of insulin Status: Chronic (5) GERD (gastroesophageal reflux disease) ICD Code: K21.9 - Gastro-esophageal reflux disease without esophagitis Status: Chronic (6) Hypothyroidism ICD Code: E03.9 - Hypothyroidism, unspecified Status: Acute (7) Hypertension ICD Code: I10 - Essential (primary) hypertension Status: Chronic Assessment and Plan 1. Severe hypoglycemia: Resolved. Patient took an unknown amount of insulin prior to admission. Glucose now elevated. Resume home dose of Levemir (8 Units BID). 2. Diabetes mellitus, insulin dependent: Monitor Accu-checks and cover with sliding scale insulin. Increase Levemir to patient's home dose. Diabetic diet. 3. Left leg wounds, cellulitis: Improving. Continue wound care. Continue Vancomycin. He did receive a dose of Zosyn in the ER. 4. Hypertension: Continue amlodipine, Coreg, lisinopril. 5. Hypothyroidism: Continue synthroid. 6. PAD: Continue Plavix, aspirin, statin. 7. DVT prophylaxis: Heparin. Discharge Planning Transfer to med/surg floor. Possible discharge home tomorrow. Joseph De La Paz MD May 16, 2017 08:45
[2017-05-16] MEDS: INSULIN ASPART SUPPLEMENTAL SCALE SQ SCH ×4 (08:48→20:43)
[2017-05-16] MEDS: HYDROCHLOROTHIAZIDE 25 MG TAB PO SCH (08:49)
[2017-05-16] MEDS: CARVEDILOL 3.125 MG TAB PO SCH ×2 (08:49→20:43)
[2017-05-16] MEDS: PREGABALIN 100 MG CAP PO SCH ×3 (08:49→17:28)
[2017-05-16] MEDS: ACETAMINOPHEN/HYDROcodone 325 MG/10 MG TAB PO PRN ×3 (08:49→20:42)
[2017-05-16] MEDS: ASPIRIN EC 81 MG TABEC PO SCH (08:49)
[2017-05-16] MEDS: THIAMINE HCL 100 MG TAB PO SCH (08:49)
[2017-05-16] MEDS: CLOPIDOGREL 75 MG TAB PO SCH (08:49)
[2017-05-16] MEDS: PANTOPRAZOLE SOD 20 MG DELAYED RELEASE TAB PO SCH ×2 (08:50→20:42)
[2017-05-16] MEDS: MULTIVITAMIN TAB PO SCH (08:50)
[2017-05-16] MEDS: amLODIPine BESYLATE 5 MG TAB PO SCH (08:50)
[2017-05-16] MEDS: FOLIC ACID 1 MG TAB PO SCH (08:50)
[2017-05-16] MEDS: LISINOPRIL 10 MG TAB PO SCH ×2 (08:50→20:43)
[2017-05-16] MEDS: CYANOCOBALAMIN 1,000 MCG TAB PO SCH (08:50)
[2017-05-16] MEDS: SODIUM CHLORIDE 0.9% FLUSH 10 ML FLUSH IV FLUSH SCH ×2 (08:54→20:44)
[2017-05-16] MEDS: HEPARIN SODIUM - SQ 10,000 UNITS/ML VIAL SQ SCH ×2 (09:34→20:44)
[2017-05-16] MEDS: SODIUM CHLOR 0.45% 1000 ML INJ 1,000 ML IV SCH ×2 (09:37→20:41)
[2017-05-16] MEDS: INSULIN DETEMIR 100 UNITS/ML VIAL SQ SCH ×2 (09:37→20:43)
[2017-05-16] MEDS ORDERED: INFLUENZA VIRUS VACCINE (QUADRIVALENT) 0.5 ML SYR IM ONE (10:00)
[2017-05-16 11:45] LABS: AUTOMATED NEUTROPHIL # 9.4 TH/MM3 (1.8-7.7); BASOPHIL # 0.1 TH/MM3 (0-0.2); BASOPHIL % 0.5 % (0.0-2.0); EOSINOPHIL % 0.3 % (0.0-4.0); HEMATOCRIT 26.5 % (39.0-51.0); HEMOGLOBIN 8.5 GM/DL (13.0-17.0); LYMPH % 10.9 % (9.0-44.0); LYMPHOCYTE # 1.2 TH/MM3 (1.0-4.8); MEAN CELL VOLUME 93.4 FL (80.0-100.0); MEAN CORPUSCULAR HEMOGLOBIN 29.9 PG (27.0-34.0); MEAN CORPUSCULAR HGB CONC 32.1 % (32.0-36.0); MEAN PLATELET VOLUME 9.6 FL (7.0-11.0); MONO % 2.2 % (0.0-8.0); MONOCYTE # 0.2 TH/MM3 (0-0.9); NEUT % 86.1 % (16.0-70.0); PLATELET COUNT 188 TH/MM3 (150-450); RED BLOOD COUNT 2.84 MIL/MM3 (4.50-5.90); RED CELL DISTRIBUTION WIDTH 15.7 % (11.6-17.2); WHITE BLOOD COUNT 10.9 TH/MM3 (4.0-11.0)
[2017-05-16 11:46] LABS: BICARBONATE 14.6 MEQ/L (21.0-32.0); CALCIUM 7.7 MG/DL (8.5-10.1); CREATININE 1.06 MG/DL (0.60-1.30); MAGNESIUM 1.8 MG/DL (1.5-2.5)
[2017-05-16] MEDS ORDERED: GLUCAGON 1 MG/ML VIAL OTHER PRN (12:00)
[2017-05-16] MEDS ORDERED: DEXTROSE 50% IN WATER 50 ML VIAL(D50) IV PUSH PRN (12:00)
[2017-05-16] MEDS: NORTRIPTYLINE HCL 25 MG CAP PO SCH (20:41)
[2017-05-16] MEDS: ATORVASTATIN 80 MG TAB PO SCH (20:41)
[2017-05-17] VITALS (8 sets, daily range): BP systolic 102–127; BP diastolic 57–77; PULSE 78–88; RESP 16–20; TEMP 97.1–98.3; O2SAT 94–100
[2017-05-17] MEDS: LEVOTHYROXINE SODIUM 100 MCG TAB PO SCH (04:27)
[2017-05-17] MEDS: PIPERACIL-TAZO 3.375 GM PREMIX 50 ML IV SCH ×4 (04:27→22:54)
[2017-05-17] MEDS: ACETAMINOPHEN/HYDROcodone 325 MG/10 MG TAB PO PRN ×4 (04:27→22:54)
[2017-05-17] MEDS: INSULIN DETEMIR 100 UNITS/ML VIAL SQ SCH ×2 (09:20→21:48)
[2017-05-17] MEDS: INSULIN ASPART SUPPLEMENTAL SCALE SQ SCH ×4 (09:20→21:47)
[2017-05-17] MEDS: HYDROCHLOROTHIAZIDE 25 MG TAB PO SCH (09:22)
[2017-05-17] MEDS: CLOPIDOGREL 75 MG TAB PO SCH (09:23)
[2017-05-17] MEDS: CYANOCOBALAMIN 1,000 MCG TAB PO SCH (09:23)
[2017-05-17] MEDS: PREGABALIN 100 MG CAP PO SCH ×3 (09:23→18:40)
[2017-05-17] MEDS: FOLIC ACID 1 MG TAB PO SCH (09:23)
[2017-05-17] MEDS: LISINOPRIL 10 MG TAB PO SCH ×2 (09:23→21:00)
[2017-05-17] MEDS: MULTIVITAMIN TAB PO SCH (09:23)
[2017-05-17] MEDS: THIAMINE HCL 100 MG TAB PO SCH (09:23)
[2017-05-17] MEDS: PANTOPRAZOLE SOD 20 MG DELAYED RELEASE TAB PO SCH ×2 (09:23→21:48)
[2017-05-17] MEDS: CARVEDILOL 3.125 MG TAB PO SCH ×2 (09:23→21:00)
[2017-05-17] MEDS: SODIUM CHLORIDE 0.9% FLUSH 10 ML FLUSH IV FLUSH SCH ×2 (09:24→22:54)
[2017-05-17] MEDS: amLODIPine BESYLATE 5 MG TAB PO SCH (09:24)
[2017-05-17] MEDS: ASPIRIN EC 81 MG TABEC PO SCH (09:24)
[2017-05-17] MEDS: HEPARIN SODIUM - SQ 10,000 UNITS/ML VIAL SQ SCH ×2 (10:36→22:53)
--- NOTE | 2017-05-17 10:58 | HHI.PR ---
Subjective Remarks Follow-up for cellulitis Left calf pain is better, rash/swelling/redness is better. Afebrile, no nausea or vomiting. Feels better today. Even suppurative drainage from wound is better Objective Vitals Vital Signs Date Time Temp Pulse Resp B/P (MAP) Pulse Ox O2 Delivery O2 Flow Rate FiO2 05/17/17 08:00 97.7 82 18 127/74 (91) 99 05/17/17 05:55 98.3 86 19 117/68 (84) 99 05/17/17 00:53 97.4 88 20 115/62 (79) 97 05/16/17 21:02 97.4 82 20 103/57 (72) 98 05/16/17 20:37 87 05/16/17 18:00 92 05/16/17 16:42 13 05/16/17 16:00 98.0 85 25 105/57 (73) 100 05/16/17 16:00 86 05/16/17 14:49 14 05/16/17 14:00 86 05/16/17 12:00 97.9 85 15 117/63 (81) 100 05/16/17 12:00 85 I/O 05/16/17 05/16/17 05/16/17 05/17/17 05/17/17 05/17/17 07:00 15:00 23:00 07:00 15:00 23:00 Intake Total 540 ml 1050 ml 500 ml 1420 ml Output Total 1050 ml 701 ml 400 ml 1400 ml Balance -510 ml 349 ml 100 ml 20 ml Intake Oral 240 ml 620 ml IV Total 300 ml 1050 ml 500 ml 800 ml Output Urine Total 1050 ml 700 ml 400 ml 1400 ml Stool Total 1 ml # Bowel Movements 1 Result Diagram: 05/16/17 1036 05/16/17 1036 Objective Remarks General: Disheveled male in no acute distress. Heart: Regular rate and rhythm. 2/6 systolic murmur. Lungs: Clear to auscultation bilaterally. No wheezes, rales, or rhonchi. Breathing is nonlabored. Abdomen: Soft, nontender, nondistended. Extremities: Right BKA. Left lower leg with multiple wounds, largest diameter about 1 cm, surrounding erythema is improving. Scant drainage from 2 wounds left lateral aspect. Alert awake and oriented, no focal deficits. Procedures None A/P Problem List: (1) Leukocytosis ICD Code: D72.829 - Elevated white blood cell count, unspecified (2) Anemia ICD Code: D64.9 - Anemia, unspecified (3) Leg wound, left ICD Code: S81.802A - Unspecified open wound, left lower leg, initial encounter (4) Diabetes mellitus, type II, insulin dependent ICD Code: E11.9 - Insulin dependent type 2 diabetes mellitus; Z79.4 - half-way (current) use of insulin Status: Chronic (5) GERD (gastroesophageal reflux disease) ICD Code: K21.9 - Gastro-esophageal reflux disease without esophagitis Status: Chronic (6) Hypothyroidism ICD Code: E03.9 - Hypothyroidism, unspecified Status: Acute (7) Hypertension ICD Code: I10 - Essential (primary) hypertension Status: Chronic Assessment and Plan 1. Severe hypoglycemia: Resolved. Patient took an unknown amount of insulin prior to admission. Glucose still elevated, increase Levemir. 2. Diabetes mellitus, insulin dependent: Monitor Accu-checks and cover with sliding scale insulin. Increase Levemir to patient's home dose. Diabetic diet. 3. Left leg wounds, cellulitis: Improving. Continue wound care. Continue Vancomycin and Zosyn. Improving. Blood culture positive for gram-positive cocci 1 out of 4 bottles. We'll repeat blood cultures. Patient is a febrile, recheck CBC tomorrow. 4. Hypertension: Continue amlodipine, Coreg, lisinopril. 5. Hypothyroidism: Continue synthroid. 6. PAD: Continue Plavix, aspirin, statin. 7. Hyponatremia and hypochloremia-start normal saline Heparin for DVT prophylaxis Discharge Planning Hold discharge, positive blood culture. Wilfrid Delcid MD May 17, 2017 10:58
[2017-05-17] MEDS: SODIUM CHLOR 0.45% 1000 ML INJ 1,000 ML IV SCH (11:58)
[2017-05-17] MEDS: MUPIROCIN 2% CREAM 15 GM TOPICAL SCH ×2 (13:00→21:50)
[2017-05-17] MEDS: SODIUM CHLOR 0.9% 1000 ML INJ 1,000 ML IV SCH ×2 (13:50→21:34)
[2017-05-17] MEDS ORDERED: PHARMACY ORDERED LAB ONE (17:45)
[2017-05-17] MEDS: VANCOMYCIN 1,000 MG/NS 250 ML IV SCH ×2 (18:40)
[2017-05-17] MEDS: NORTRIPTYLINE HCL 25 MG CAP PO SCH (21:48)
[2017-05-17] MEDS: ATORVASTATIN 80 MG TAB PO SCH (21:48)
[2017-05-18] VITALS (7 sets, daily range): BP systolic 111–133; BP diastolic 64–70; PULSE 77–91; RESP 16–18; TEMP 95.9–97.5; O2SAT 96–99
[2017-05-18 02:09] LABS: AUTOMATED NEUTROPHIL # 3.7 TH/MM3 (1.8-7.7); BASOPHIL # 0.1 TH/MM3 (0-0.2); BASOPHIL % 1.1 % (0.0-2.0); EOSINOPHIL # 0.4 TH/MM3 (0-0.4); EOSINOPHIL % 6.1 % (0.0-4.0); HEMOGLOBIN 8.8 GM/DL (13.0-17.0); LYMPH % 35.1 % (9.0-44.0); LYMPHOCYTE # 2.6 TH/MM3 (1.0-4.8); MEAN CELL VOLUME 92.7 FL (80.0-100.0); MEAN CORPUSCULAR HEMOGLOBIN 30.2 PG (27.0-34.0); MEAN CORPUSCULAR HGB CONC 32.6 % (32.0-36.0); MEAN PLATELET VOLUME 8.9 FL (7.0-11.0); MONO % 7.3 % (0.0-8.0); MONOCYTE # 0.5 TH/MM3 (0-0.9); NEUT % 50.4 % (16.0-70.0); PLATELET COUNT 173 TH/MM3 (150-450); RED BLOOD COUNT 2.91 MIL/MM3 (4.50-5.90); RED CELL DISTRIBUTION WIDTH 15.2 % (11.6-17.2); WHITE BLOOD COUNT 7.3 TH/MM3 (4.0-11.0)
[2017-05-18 02:16] LABS: BICARBONATE 23.6 MEQ/L (21.0-32.0); CALCIUM 7.5 MG/DL (8.5-10.1); CREATININE 0.91 MG/DL (0.60-1.30)
[2017-05-18] MEDS: SODIUM CHLOR 0.9% 1000 ML INJ 1,000 ML IV SCH (03:46)
[2017-05-18] MEDS ORDERED: POTASSIUM CHLORIDE 25 MEQ EFFERVESCENT TAB PO ONE (04:15)
[2017-05-18 04:28] LABS: MAGNESIUM 1.6 MG/DL (1.5-2.5)
[2017-05-18 04:30] LABS: TROPONIN I 0.05 NG/ML (0.02-0.05)
[2017-05-18] MEDS: PIPERACIL-TAZO 3.375 GM PREMIX 50 ML IV SCH ×2 (04:46→10:48)
[2017-05-18] MEDS: ACETAMINOPHEN/HYDROcodone 325 MG/10 MG TAB PO PRN ×4 (04:47→22:54)
[2017-05-18] MEDS: CARVEDILOL 3.125 MG TAB PO SCH ×2 (04:47→20:31)
[2017-05-18] MEDS: LEVOTHYROXINE SODIUM 100 MCG TAB PO SCH (04:47)
[2017-05-18] MEDS ORDERED: MAGNESIUM SULFATE 1 GM PREMIX 100 ML IV ONE (05:45)
[2017-05-18 06:43] LABS: TROPONIN I 0.05 NG/ML (0.02-0.05)
[2017-05-18] MEDS: INSULIN ASPART SUPPLEMENTAL SCALE SQ SCH ×4 (08:00→21:00)
[2017-05-18] MEDS: FOLIC ACID 1 MG TAB PO SCH (08:34)
[2017-05-18] MEDS: amLODIPine BESYLATE 5 MG TAB PO SCH (08:34)
[2017-05-18] MEDS: PREGABALIN 100 MG CAP PO SCH ×3 (08:34→16:50)
[2017-05-18] MEDS: PANTOPRAZOLE SOD 20 MG DELAYED RELEASE TAB PO SCH ×2 (08:34→20:30)
[2017-05-18] MEDS: INSULIN DETEMIR 100 UNITS/ML VIAL SQ SCH ×2 (08:34→21:46)
[2017-05-18] MEDS: MULTIVITAMIN TAB PO SCH (08:34)
[2017-05-18] MEDS: THIAMINE HCL 100 MG TAB PO SCH (08:35)
[2017-05-18] MEDS: LISINOPRIL 10 MG TAB PO SCH ×2 (08:35→20:30)
[2017-05-18] MEDS: CYANOCOBALAMIN 1,000 MCG TAB PO SCH (08:35)
[2017-05-18] MEDS: HYDROCHLOROTHIAZIDE 25 MG TAB PO SCH (08:35)
[2017-05-18] MEDS: CLOPIDOGREL 75 MG TAB PO SCH (08:35)
[2017-05-18] MEDS: ASPIRIN EC 81 MG TABEC PO SCH (08:35)
[2017-05-18] MEDS: MUPIROCIN 2% CREAM 15 GM TOPICAL SCH ×2 (08:39→20:34)
[2017-05-18] MEDS: SODIUM CHLORIDE 0.9% FLUSH 10 ML FLUSH IV FLUSH SCH ×2 (08:43→20:33)
[2017-05-18] MEDS: HEPARIN SODIUM - SQ 10,000 UNITS/ML VIAL SQ SCH ×2 (10:48→21:47)
[2017-05-18] MEDS: VANCOMYCIN 1,000 MG/NS 250 ML IV SCH ×2 (12:11)
--- NOTE | 2017-05-18 15:59 | HHI.PR ---
Subjective Remarks Follow-up for cellulitis,? Gram-positive bacteremia Patient feels good, GERD that is resolving, afebrile, no leukocytosis. Objective Vitals Vital Signs Date Time Temp Pulse Resp B/P (MAP) Pulse Ox O2 Delivery O2 Flow Rate FiO2 05/18/17 12:00 97.0 77 18 118/64 (82) 98 05/18/17 08:10 83 05/18/17 08:00 95.9 87 18 115/64 (81) 99 05/18/17 04:00 97.3 83 16 123/69 (87) 97 05/18/17 00:00 97.1 80 17 133/70 (91) 96 05/17/17 20:07 88 05/17/17 19:45 98.1 84 16 102/57 (72) 94 05/17/17 16:16 97.7 78 18 110/64 (79) 99 05/17/17 16:00 98.2 79 16 126/71 (89) 98 I/O 05/17/17 05/17/17 05/17/17 05/18/17 05/18/17 05/18/17 07:00 15:00 23:00 07:00 15:00 23:00 Intake Total 1420 ml 755 ml 770 ml 950 ml 420 ml Output Total 1400 ml 600 ml 950 ml Balance 20 ml 755 ml 170 ml 0 ml 420 ml Intake Oral 620 ml 480 ml 720 ml 550 ml 420 ml IV Total 800 ml 275 ml 50 ml 400 ml Output Urine Total 1400 ml 600 ml 950 ml # Voids 3 3 2 # Bowel Movements 1 1 Result Diagram: 05/18/17 0140 05/18/17 0614 Objective Remarks General: Disheveled male in no acute distress. Heart: Regular rate and rhythm. 2/6 systolic murmur. Lungs: Clear to auscultation bilaterally. No wheezes, rales, or rhonchi. Breathing is nonlabored. Abdomen: Soft, nontender, nondistended. Extremities: Right BKA. Left lower leg with multiple wounds, largest diameter about 1 cm, surrounding erythema is improving. Scant drainage is now dry. Alert awake and oriented, no focal deficits. Procedures None A/P Problem List: (1) Leukocytosis ICD Code: D72.829 - Elevated white blood cell count, unspecified (2) Anemia ICD Code: D64.9 - Anemia, unspecified (3) Leg wound, left ICD Code: S81.802A - Unspecified open wound, left lower leg, initial encounter (4) Diabetes mellitus, type II, insulin dependent ICD Code: E11.9 - Insulin dependent type 2 diabetes mellitus; Z79.4 - [place] reverse winder (current) use of insulin Status: Chronic (5) GERD (gastroesophageal reflux disease) ICD Code: K21.9 - Gastro-esophageal reflux disease without esophagitis Status: Chronic (6) Hypothyroidism ICD Code: E03.9 - Hypothyroidism, unspecified Status: Acute (7) Hypertension ICD Code: I10 - Essential (primary) hypertension Status: Chronic Assessment and Plan This is a 61-year-old male who came in with left lower extremity cellulitis Left lower extremity cellulitis-improving, continue wound care, continue vancomycin, stop Zosyn, start Augmentin. Initial blood culture positive for gram-positive cocci, likely contaminant with one out of 4 bottles. Awaiting final results. Blood culture negative to date, patient is afebrile, CBC stable. Discharge once blood cultures are negative. Hypertension: Continue amlodipine, Coreg, lisinopril. Hypothyroidism: Continue synthroid. PAD: Continue Plavix, aspirin, statin. Hyponatremia and hypochloremia-resolved, stop normal saline. Heparin for DVT prophylaxis Discharge Planning Discharge tomorrow if repeat blood cultures remain negative and initial blood culture appears to be contaminant. Wilfrid Delcid MD May 18, 2017 15:59
--- NOTE | 2017-05-18 16:03 | HHI.FF ---
Face to Face Verification Diagnosis: (1) Cellulitis (2) DM (diabetes mellitus) Physical Therapy Order: Evaluate and Treat Home Health Nursing Order: Medical education Signs/symptoms of disease process Wound care and dressing changes Nursing assessment with vital signs I have seen patient Ezio Aragon on 05/18/17. My clinical findings support the need for the requested home health care services because: Ltd mobility - disease progression I certify that my clinical findings support that this patient is homebound because: Unsteady gait/balance Wilfrid Delcid MD May 18, 2017 16:03
[2017-05-18] MEDS: AMOXICILLIN/CLAVULANATE K 875 MG TAB PO SCH (20:30)
[2017-05-18] MEDS: NORTRIPTYLINE HCL 25 MG CAP PO SCH (20:31)
[2017-05-18] MEDS: ATORVASTATIN 80 MG TAB PO SCH (20:31)
[2017-05-19] VITALS: BP 118/65; PULSE 85; RESP 16; TEMP 97.6; O2SAT 95
[2017-05-19 03:47] VITALS: BP 138/78; PULSE 91; RESP 18; TEMP 97; O2SAT 98
[2017-05-19] MEDS: ACETAMINOPHEN/HYDROcodone 325 MG/10 MG TAB PO PRN ×2 (05:01→10:59)
[2017-05-19] MEDS: LEVOTHYROXINE SODIUM 100 MCG TAB PO SCH (05:02)
[2017-05-19] MEDS: VANCOMYCIN 1,000 MG/NS 250 ML IV SCH ×2 (05:08)
[2017-05-19 05:18] LABS: AUTOMATED NEUTROPHIL # 5.4 TH/MM3 (1.8-7.7); BASOPHIL # 0.1 TH/MM3 (0-0.2); BASOPHIL % 0.6 % (0.0-2.0); EOSINOPHIL # 0.6 TH/MM3 (0-0.4); EOSINOPHIL % 6.8 % (0.0-4.0); HEMATOCRIT 29.7 % (39.0-51.0); HEMOGLOBIN 9.8 GM/DL (13.0-17.0); LYMPH % 27.4 % (9.0-44.0); LYMPHOCYTE # 2.5 TH/MM3 (1.0-4.8); MEAN CELL VOLUME 90.8 FL (80.0-100.0); MEAN CORPUSCULAR HEMOGLOBIN 29.9 PG (27.0-34.0); MONO % 6.2 % (0.0-8.0); MONOCYTE # 0.6 TH/MM3 (0-0.9); PLATELET COUNT 218 TH/MM3 (150-450); RED BLOOD COUNT 3.27 MIL/MM3 (4.50-5.90); RED CELL DISTRIBUTION WIDTH 15.5 % (11.6-17.2); WHITE BLOOD COUNT 9.2 TH/MM3 (4.0-11.0)
[2017-05-19] MEDS ORDERED: PHARMACY ORDERED LAB ONE (05:45)
[2017-05-19 05:46] LABS: BICARBONATE 25.7 MEQ/L (21.0-32.0); CALCIUM 8.5 MG/DL (8.5-10.1); CREATININE 0.84 MG/DL (0.60-1.30)
[2017-05-19 08:00] VITALS: BP 147/81; PULSE 85; RESP 18; TEMP 96.7; O2SAT 99
[2017-05-19] MEDS: INSULIN ASPART SUPPLEMENTAL SCALE SQ SCH ×3 (08:41→17:00)
[2017-05-19] MEDS: ASPIRIN EC 81 MG TABEC PO SCH (08:42)
[2017-05-19] MEDS: amLODIPine BESYLATE 5 MG TAB PO SCH (08:42)
[2017-05-19] MEDS: CARVEDILOL 3.125 MG TAB PO SCH (08:42)
[2017-05-19] MEDS: LISINOPRIL 10 MG TAB PO SCH (08:42)
[2017-05-19] MEDS: PREGABALIN 100 MG CAP PO SCH ×2 (08:42→12:17)
[2017-05-19] MEDS: THIAMINE HCL 100 MG TAB PO SCH (08:42)
[2017-05-19] MEDS: FOLIC ACID 1 MG TAB PO SCH (08:42)
[2017-05-19] MEDS: PANTOPRAZOLE SOD 20 MG DELAYED RELEASE TAB PO SCH (08:42)
[2017-05-19] MEDS: MULTIVITAMIN TAB PO SCH (08:42)
[2017-05-19] MEDS: CYANOCOBALAMIN 1,000 MCG TAB PO SCH (08:42)
[2017-05-19] MEDS: CLOPIDOGREL 75 MG TAB PO SCH (08:42)
[2017-05-19] MEDS: MUPIROCIN 2% CREAM 15 GM TOPICAL SCH (08:43)
[2017-05-19] MEDS: AMOXICILLIN/CLAVULANATE K 875 MG TAB PO SCH (08:43)
[2017-05-19] MEDS: SODIUM CHLORIDE 0.9% FLUSH 10 ML FLUSH IV FLUSH SCH (08:43)
[2017-05-19] MEDS: INSULIN DETEMIR 100 UNITS/ML VIAL SQ SCH (08:43)
[2017-05-19] MEDS: HYDROCHLOROTHIAZIDE 25 MG TAB PO SCH (08:43)
[2017-05-19 09:13] VITALS: PULSE 85
[2017-05-19] MEDS: HEPARIN SODIUM - SQ 10,000 UNITS/ML VIAL SQ SCH (10:58)
--- NOTE | 2017-05-19 11:30 | HHI.PR ---
Subjective Remarks Patient seen and examined this morning. Temperature 96.7, pulse 85, respiratory 18, blood pressure 147/81, pulse ox 98 over room air. Patient reports that he has no pain. His wounds appear to be improving on his left lower extremity. The swelling and erythema of the left lower extremity has resolved. He is hoping to get out of the hospital today as it is his [birth year]. Informed him that we are waiting on the results of the blood cultures today and if they are negative he'll be discharged home on oral antibiotics. He is very excited about this news, and is hoping to go home. Objective Vitals Vital Signs Date Time Temp Pulse Resp B/P (MAP) Pulse Ox O2 Delivery O2 Flow Rate FiO2 05/19/17 08:00 96.7 85 18 147/81 (103) 99 05/19/17 03:47 97.0 91 18 138/78 (98) 98 05/19/17 00:00 97.6 85 16 118/65 (82) 95 05/18/17 20:00 97.5 81 17 111/64 (80) 99 05/18/17 20:00 79 05/18/17 16:00 96.6 91 18 123/68 (86) 98 05/18/17 12:00 97.0 77 18 118/64 (82) 98 I/O 05/18/17 05/18/17 05/18/17 05/19/17 05/19/17 05/19/17 07:00 15:00 23:00 07:00 15:00 23:00 Intake Total 950 ml 420 ml 650 ml 720 ml Output Total 950 ml 675 ml Balance 0 ml 420 ml -25 ml 720 ml Intake Oral 550 ml 420 ml 650 ml 720 ml IV Total 400 ml Output Urine Total 950 ml 675 ml # Voids 2 2 # Bowel Movements 1 Result Diagram: 05/19/1744405/19/17444 Imaging Last Impressions Chest X-Ray 05/14/171925 Signed Impressions: Service Date/Time: Sunday, May 14, 2017 19:36 - CONCLUSION: No acute disease. There is no evidence of pneumonia. Chris Vital MD Objective Remarks GEN: Well-developed, well-nourished patient. No acute distress. CV: Regular rate and rhythm without obvious murmurs LUNGS: Clear to auscultation bilaterally. Normal respiratory effort. No wheezes , rales, rhonchi. GI: Soft, nontender, nondistended. No palpable masses. Bowel sounds WNL. EXT: Below-knee Amputation of the right lower extremity. Left lower extremity with multiple small healing lesions largest 1 cm. No erythema or swelling of the left lower extremity. NEURO/PSYCH: Afocal. Awake, alert, and oriented x3. Appropriate insight and judgment. Procedures None Medications and IVs Last Impressions Chest X-Ray 05/14/171925 Signed Impressions: Service Date/Time: Sunday, May 14, 2017 19:36 - CONCLUSION: No acute disease. There is no evidence of pneumonia. Chris Vital MD A/P Problem List: (1) Leukocytosis ICD Code: D72.829 - Elevated white blood cell count, unspecified (2) Anemia ICD Code: D64.9 - Anemia, unspecified (3) Leg wound, left ICD Code: S81.802A - Unspecified open wound, left lower leg, initial encounter (4) Diabetes mellitus, type II, insulin dependent ICD Code: E11.9 - Insulin dependent type 2 diabetes mellitus; Z79.4 - penitentiary (current) use of insulin Status: Chronic (5) GERD (gastroesophageal reflux disease) ICD Code: K21.9 - Gastro-esophageal reflux disease without esophagitis Status: Chronic (6) Hypothyroidism ICD Code: E03.9 - Hypothyroidism, unspecified Status: Acute (7) Hypertension ICD Code: I10 - Essential (primary) hypertension Status: Chronic Assessment and Plan This is a 61-year-old male who came in with left lower extremity cellulitis Left lower extremity cellulitis-improving, continue wound care, continue vancomycin, stop Zosyn, start Augmentin. Initial blood culture positive for gram-positive cocci, likely contaminant with one out of 4 bottles. Awaiting final results. Blood culture negative to date, patient is afebrile, CBC stable. Discharge once blood cultures are negative. Hypertension: Continue amlodipine, Coreg, lisinopril. Hypothyroidism: Continue synthroid. PAD: Continue Plavix, aspirin, statin. Hyponatremia and hypochloremia-resolved, stop normal saline. Heparin for DVT prophylaxis Discharge Planning Discharge home plan for today if repeat blood cultures negative 1 Cory Sigala MD, R3 May 19, 2017 11:29
[2017-05-19 12:00] VITALS: BP 133/73; PULSE 88; RESP 18; TEMP 96.8; O2SAT 100
[2017-05-19] MEDS ORDERED: AMOX875T2 PO (12:59)
--- NOTE | 2017-05-19 13:28 | HHI.DS ---
Discharge Summary Admission Date May 14, 2017 at 21:57 Discharge Date: May 19, 2017 Admitting Diagnosis Hypoglycemia, Hypothermia (1) Leukocytosis Diagnosis: Principal ICD Codes: D72.829 - Elevated white blood cell count, unspecified (2) Anemia Diagnosis: Secondary ICD Codes: D64.9 - Anemia, unspecified (3) Leg wound, left Diagnosis: Principal ICD Codes: S81.802A - Unspecified open wound, left lower leg, initial encounter (4) Diabetes mellitus, type II, insulin dependent Diagnosis: Secondary ICD Codes: E11.9 - Insulin dependent type 2 diabetes mellitus; Z79.4 - detention (current) use of insulin Status: Chronic (5) GERD (gastroesophageal reflux disease) Diagnosis: Secondary ICD Codes: K21.9 - Gastro-esophageal reflux disease without esophagitis Status: Chronic (6) Hypothyroidism Diagnosis: Secondary ICD Codes: E03.9 - Hypothyroidism, unspecified Status: Acute (7) Hypertension Diagnosis: Secondary ICD Codes: I10 - Essential (primary) hypertension Status: Chronic Brief History 61-year-old male with a history of hypertension, diabetes, CAD, hyperlipidemia, COPD, neuropathy was brought in by EMS due to an unresponsive state. According to EMS patient was found to have a glucose of 20. Upon examination patient is very sleepy. He states he has has a change in insulin lately but unsure what it was but he is taking it as prescribed. He does not remember the events leading up to him becoming unresponsive. He denies any nausea, vomiting, chest pain, sob , cough, or dizziness. CBC/BMP: 05/19/17 0445 05/19/17 0445 Significant Findings Laboratory Tests Test 05/17/17 17:56 05/18/17 01:40 05/18/17 06:14 05/18/17 11:20 Vancomycin Level Trough 10.1 MCG/ML (5.0-10.0) Red Blood Count 2.91 MIL/MM3 (4.50-5.90) Hemoglobin 8.8 GM/DL (13.0-17.0) Hematocrit 27.0 % (39.0-51.0) Eosinophils (%) (Auto) 6.1 % (0.0-4.0) Random Glucose 139 MG/DL (74-106) Calcium Level 7.5 MG/DL (8.5-10.1) Sodium Level 135 MEQ/L (136-145) Estimat Glomerular Filtration Rate 85 ML/MIN (>89) Test 05/19/17 04:45 Red Blood Count 3.27 MIL/MM3 (4.50-5.90) Hemoglobin 9.8 GM/DL (13.0-17.0) Hematocrit 29.7 % (39.0-51.0) Eosinophils (%) (Auto) 6.8 % (0.0-4.0) Eosinophils # (Auto) 0.6 TH/MM3 (0-0.4) Random Glucose 182 MG/DL (74-106) Sodium Level 133 MEQ/L (136-145) Vancomycin Level Trough 13.0 MCG/ML (5.0-10.0) Imaging Last Impressions Chest X-Ray 05/14/171925 Signed Impressions: Service Date/Time: Sunday, May 14, 2017 19:36 - CONCLUSION: No acute disease. There is no evidence of pneumonia. Chris Vital MD Hospital Course Patient was admitted on 05/15/17 for hypoglycemia in patient with diabetes on insulin. He was treated with IV fluids D5 1/2 NS and quickly improved. While in the hospital he was also found to have left leg wounds resulting in cellulitis. He was placed on vancomycin during his hospitalization. He quickly recovered from the cellulitis to her he could be discharged on by mouth antibiotics. On 05/19/17 it was determined that he was stable for discharge, repeat blood cultures were negative, and patient was discharged on by mouth Augmentin. Pt Condition on Discharge: Stable Discharge Disposition: Discharge Home Discharge Instructions DIET: Follow Instructions for: Diabetic Diet Activities you can perform: Regular-No Restrictions Follow up Referrals: PCP Follow-up - 1 Week New Medications: Amoxicillin-Clavulanate (Amoxicillin-Clavulanate) 875-125 mg Tab 875 MG PO Q12HR, #20 TAB not for use in CrCl <30 mL/minute Continued Medications: Amlodipine (Norvasc) 5 Mg Tab 5 MG PO DAILY, #90 TAB [address] (Adult Aspirin EC Low Strength) 81 Mg Tabec 81 MG PO DAILY for cad for 30 Days, #30 TAB 0 Refills Atorvastatin (Atorvastatin) 80 Mg Tab 80 MG PO HS for dyslipidemia for 30 Days, #30 TAB 3 Refills Carvedilol (Carvedilol) 6.25 Mg Tab 6.25 MG PO BID, #60 TAB 4 Refills Clopidogrel (Plavix) 75 Mg Tab 75 MG PO DAILY for Blood Clot Prevention, #30 TAB 3 Refills Cyanocobalamin (B12) 1,000 Mcg Tab 1000 MCG PO DAILY Hydrochlorothiazide (Hydrochlorothiazide) 25 Mg Tab 25 MG PO DAILY, #30 TAB 3 Refills Hydrocodone-Acetaminophen ([place]) 10-325 Mg Tab 1 TAB PO Q6HR for Pain Management, #20 TAB 0 Refills Insulin Aspart Inj (Novolog Inj) 1,000 Unit/10 Ml Vial 1-9 UNITS SQ ACHS for Blood Sugar Management, #10 ML 0 Refills sugars less than 70,(0)units; sugars 150-199,(1) unit; sugars 200-249,(3) units; sugars 250-299,(5) units; sugars 300-349,(7) units; sugars greater than 349,(9) units. inform PCP if < 70 or > 400. Insulin Detemir Inj (Levemir Inj) 1,000 unit/ 10 ML Vial 8 UNITS SQ BID for diabetes for 30 Days, INJECTION 0 Refills Do not mix with any other Insulin. Levothyroxine (Synthroid) 100 Mcg Tab 100 MCG PO DAILY@06 for hypothyroidism, #30 TAB 5 Refills Lisinopril (Lisinopril) 10 Mg Tab 10 MG PO Q12HR, #60 TAB 3 Refills Nortriptyline (Nortriptyline) 75 Mg Cap 75 MG PO HS for Depression Control, #30 CAP 0 Refills Omeprazole Magnesium (Prilosec) 20 Mg Tab 1 TAB PO BID, #60 Pregabalin (Lyrica) 100 Mg Cap 100 MG PO TID, #90 CAP 0 Refills Cory Sigala MD, R3 May 19, 2017 13:28
[2017-05-19] MEDS ORDERED: NOVOLOGP2 SQ (13:54)
[2017-05-19] MEDS ORDERED: LEVEMIR SQ (13:54)
[2017-05-19 16:00] VITALS: BP 130/70; PULSE 82; RESP 18; TEMP 97.7; O2SAT 99
[2017-05-19] MEDS ORDERED: AUGM875T3 PO (16:11)
[2017-05-19] MEDS ORDERED: INSU1INJ5 SQ (16:11)
[2017-05-20] MEDS ORDERED: PHARMACY ORDERED LAB ONE (17:45)
[2017-05-21] MEDS ORDERED: PHARMACY ORDERED LAB ONE (11:45)
== END 2017-05-19 17:57 | disposition home or self-care (01) | DRG 637 ==
LOC: NEPE 18:55 → NEDA 21:57 → HIMN 23:34 → N06A 05-16 18:58
PROVIDERS: ADMIT Hospitalist; ATTEND Hospitalist
DX: E11.649 Type 2 diabetes mellitus with hypoglycemia without coma (principal); G93.41 Metabolic encephalopathy; E11.51 Type 2 diabetes mellitus with diabetic peripheral angiopathy without gangrene; L03.116 Cellulitis of left lower limb; S81.802A Unspecified open wound, left lower leg, initial encounter; E87.1 Hypo-osmolality and hyponatremia; I10 Essential (primary) hypertension; F32.9 Major depressive disorder, single episode, unspecified; F41.9 Anxiety disorder, unspecified; I25.10 Atherosclerotic heart disease of native coronary artery without angina pectoris; R68.0 Hypothermia, not associated with low environmental temperature; J44.9 Chronic obstructive pulmonary disease, unspecified; E78.5 Hyperlipidemia, unspecified; K21.9 Gastro-esophageal reflux disease without esophagitis; D64.9 Anemia, unspecified; E03.9 Hypothyroidism, unspecified; E11.42 Type 2 diabetes mellitus with diabetic polyneuropathy; F17.210 Nicotine dependence, cigarettes, uncomplicated; H91.90 Unspecified hearing loss, unspecified ear; Z95.1 Presence of aortocoronary bypass graft; Z79.4 Long term (current) use of insulin; Z89.611 Acquired absence of right leg above knee
CPT/HCPCS: 71010; 80048; 80053; 80202; 80307; 81001; 82533; 82947; 82948; 83605; 83690; 83735; 84443; 84484; 85025; 86403; 87040; 87077; 87186; 87205; 90686; 96361; 96365; 96367; J1644; J1815; J2543; J3370; J3475; J7030; J7050; Q2038

== ENCOUNTER 2017-06-04 11:27 | Inpatient (IN) | payer OTHER, MEDICAID ==
[~2017-06-04] VITALS: Ht 182.9 cm; Wt 68.5 kg
[~2017-06-04 11:27] MED LIST changes: -ASPI-99 PO; +ASPI1TAB56 PO; -ATOR1TAB18 PO; +ATOR80TA45 PO; +AUGM875T3 PO; +INSU1INJ5 SQ; -MUPI2OIN TOPICAL
[2017-06-04 11:29] VITALS: BP 114/53; PULSE 103; RESP 20; TEMP 98; O2SAT 94
[2017-06-04 11:45] VITALS: BP 118/63; PULSE 93; RESP 22; TEMP 98.1; O2SAT 98
--- NOTE | 2017-06-04 12:23 | PD ---
HPI Chief Complaint: Skin Problem Time Seen by Provider: 11:41 Travel History International Travel<30 days: No Contact w/Intl Traveler<30days: No Traveled to known affect area: No History of Present Illness HPI 62-year-old male with history of hypertension, diabetes, PAD, and BKA presents to the emergency room for evaluation of persistent left lower extremity edema, pain, and increasing redness for the past 1.5 weeks. Patient states he was discharged from the hospital [birth year], [birth year], after being treated for cellulitis with IV antibiotics with a prescription for Augmentin. States upon finishing the Augmentin, he noticed gradually increasing/worsening leg symptoms. He has associated left lower extremity ulcerations been healing for the past 3 months. He has been applying unknown prescription cream to them daily. Pain is worsened with walking. Improved at rest. He has been taking Percocet for pain. He followed up with his vascular surgeon, Dr. Balderas, today who told him his problems were not related to the vasculature and recommended he come to the emergency room for evaluation of possible worsening cellulitis. Patient denies fever, chills, nausea, vomiting. Of note, patient has had 2 ultrasounds over the past month in the left leg that have both been negative for DVT. PFSH Past Medical History Hx Anticoagulant Therapy: Yes Arthritis: Yes Asthma: No Autoimmune Disease: No Blood Disorders: No Anxiety: Yes Depression: Yes Heart Rhythm Problems: No Cancer: No Cardiovascular Problems: Yes High Cholesterol: Yes Chemotherapy: No Chest Pain: No Congestive Heart Failure: No COPD: No Cerebrovascular Accident: No Coronary Artery Disease: Yes Diabetes: Yes Patient Takes Glucophage: No Diminished Hearing: Yes (SYCUAN) Endocrine: Yes Gastrointestinal Disorders: Yes (ESOPHAGEAL ULCER? stricture, stretch) GERD: Yes Glaucoma: No Genitourinary: No Headaches: No Hepatitis: No Hiatal Hernia: No Hypertension: Yes Immune Disorder: No Implanted Vascular Access Dvce: Yes Kidney Stones: No Musculoskeletal: Yes (cervical and lumbar spine pt states he has bulging disc R AKA) Neurologic: Yes (NEUROPATHY pvd) Psychiatric: No Reproductive: No Respiratory: No Immunizations Current: No Migraines: No Myocardial Infarction: Yes Radiation Therapy: No Renal Failure: No Seizures: Yes (PER PT SECONDARY TO HYPOGLYCEMIA) Sickle Cell Disease: No Sleep Apnea: No Thyroid Disease: Yes Ulcer: No PNEUMOCCOCAL Vaccine (Year): 2 Past Surgical History Abdominal Surgery: Yes (EXP. LEFT BRACHIAL PLEXIS,APPEND., COLECTOMY) AICD: No Appendectomy: Yes Arteriovenous Shunt: No Body Medical Devices: Right leg amputaion wears prosthesis Cardiac Surgery: Yes (CABGX4) Cholecystectomy: No Coronary Artery Bypass Graft: Yes (2005) Ear Surgery: No Endocrine Surgery: No Eye Surgery: No Genitourinary Surgery: No Gynecologic Surgery: No Insulin Pump: No Joint Replacement: No Neurologic Surgery: No Oral Surgery: No Pacemaker: No Thoracic Surgery: Yes (L5, S1, fusions) Tonsillectomy: Yes Other Surgery: Yes (2 HYDROCELE) Social History Alcohol Use: No Tobacco Use: Yes (6-7 CIGARETTES/DAY) Substance Use: No Allergies-Medications (Allergen,Severity, Reaction): Coded Allergies: morphine (Verified Adverse Reaction, Severe, STS HE BECOMES VIOLENT., ) Uncoded Allergies: UNFRACTIONATED HEPARIN (Adverse Reaction, Severe, PT UNSURE OF REACTION, ) patient states he's not allergic, " I just bleed easily", explained to patient drug's purpose. Reported Meds & Prescriptions Reported Meds & Active Scripts Active Levemir Flextouch Pen Inj (Insulin Detemir) 300 unit/3 ML Pen 1 Units SQ BID Levemir Inj (Insulin Detemir) 1,000 unit/ 10 ML Vial 8 Units SQ BID 30 Days Do not mix with any other Insulin. Novolog Inj (Insulin Aspart) 1,000 Unit/10 Ml Vial 1-9 Units SQ ACHS sugars less than 70,(0)units; sugars 150-199,(1) unit; sugars 200-249,(3) units; sugars 250-299,(5) units; sugars 300-349,(7) units; sugars greater than 349,(9) units. inform PCP if < 70 or > 400. Hydrochlorothiazide 25 Mg Tab 25 Mg PO DAILY Lisinopril 10 Mg Tab 10 Mg PO Q12HR Atorvastatin (Atorvastatin Calcium) 80 Mg Tab 80 Mg PO HS 30 Days Prilosec (Omeprazole Magnesium) 20 Mg Tab 1 Tab PO BID Lyrica (Pregabalin) 100 Mg Cap 100 Mg PO TID Adult Aspirin EC Low Strength (Aspirin) 81 Mg Tabec 81 Mg PO DAILY 30 Days Norvasc (Amlodipine Besylate) 5 Mg Tab 5 Mg PO DAILY Nortriptyline (Nortriptyline HCl) 75 Mg Cap 75 Mg PO HS Plavix (Clopidogrel Bisulfate) 75 Mg Tab 75 Mg PO DAILY Synthroid (Levothyroxine Sodium) 100 Mcg Tab 100 Mcg PO DAILY@06 [place] (Hydrocodone-Acetaminophen) 10-325 Mg Tab 1 Tab PO Q6HR Carvedilol 6.25 Mg Tab 6.25 Mg PO BID Reported B12 (Cyanocobalamin) 1,000 Mcg Tab 1,000 Mcg PO DAILY Review of Systems Except as stated in HPI: all other systems reviewed are Neg Physical Exam Narrative GENERAL: Well-nourished, well-developed male in no acute distress. Afebrile. Ambulatory with walker. SKIN: Focused skin assessment warm/dry. Healing, superficial ulcerations to the left lower extremity. No significant drainage. No significant erythema. No significant warmth. HEAD: Normocephalic. EYES: No scleral icterus. No injection or drainage. NECK: Supple, trachea midline. No JVD or lymphadenopathy. CARDIOVASCULAR: Regular rate and rhythm without murmurs, gallops, or rubs. RESPIRATORY: Breath sounds equal bilaterally. No accessory muscle use. MUSCULOSKELETAL: No cyanosis. Moderate, nonpitting edema of the left lower extremity. One plus dorsalis pedis pulse appreciated with Doppler. Full range of motion. Data Data Last Documented VS Vital Signs Date Time Temp Pulse Resp B/P (MAP) Pulse Ox O2 Delivery O2 Flow Rate FiO2 06/04/17 13:22 80 16 125/69 (87) 94 Nasal Cannula 06/04/17 11:45 98.1 Orders Orders Complete Blood Count With Diff (06/04/17 11:57) Blood Culture (06/04/17 11:57) Iv Access Insert/Monitor (06/04/17 11:57) Comprehensive Metabolic Panel (06/04/17 11:57) Prothrombin Time / Inr (Pt) (06/04/17 11:57) Act Partial Throm Time (Ptt) (06/04/17 11:57) Westergren Sedimentation Rate (06/04/17 11:57) C-Reactive Protein (Crp) (06/04/17 12:07) Lactic Acid (06/04/17 12:07) Insulin Human Regular Inj (Novolin R Inj (06/04/17 13:30) Blood Glucose (06/04/17 13:28) Blood Glucose (06/04/17 14:28) Sodium Chlor 0.9% 1000 Ml Inj (Ns 1000 M (06/04/17 13:45) Vancomycin Inj (Vancomycin Inj) (06/04/17 13:45) Comprehensive Metabolic Panel (06/05/17 06:00) Free Thyroxine (T4) (06/05/17 06:00) Hemoglobin (Hgb) A1c (06/05/17 06:00) Magnesium (Mg) (06/05/17 06:00) Phosphorus (Po4) (06/05/17 06:00) Thyroid Stimulating Hormone (06/05/17 06:00) Complete Blood Count With Diff (06/05/17 06:00) Bedside Glucose KARSON.CSUGAR&03 (06/04/17 13:57) Blood Glucose Goal (Criteria) (06/04/17 13:57) Hypoglycemia 70 Mg/Dl Or < (06/04/17 13:57) Notify Dr: Other (06/04/17 13:57) Dextrose 50% In Jareth (Vial) Inj (D50w (Vi (06/04/17 14:00) Glucagon Inj (Glucagon Inj) (06/04/17 14:00) Insulin Aspart Supplemtl Scale (Novolog (06/04/17 17:00) Piperacil-Tazo 3.375 Gm Premix (Zosyn 3. (06/04/17 14:00) Admit Order (Ed Use Only) (06/04/17 13:59) Labs Laboratory Tests Test 06/04/17 12:20 White Blood Count 10.3 TH/MM3 Red Blood Count 3.00 MIL/MM3 Hemoglobin 8.8 GM/DL Hematocrit 27.3 % Mean Corpuscular Volume 90.9 FL Mean Corpuscular Hemoglobin 29.2 PG Mean Corpuscular Hemoglobin Concent 32.1 % Red Cell Distribution Width 16.2 % Platelet Count 191 TH/MM3 Mean Platelet Volume 9.5 FL Neutrophils (%) (Auto) 69.8 % Lymphocytes (%) (Auto) 15.6 % Monocytes (%) (Auto) 4.0 % Eosinophils (%) (Auto) 9.4 % Basophils (%) (Auto) 1.2 % Neutrophils # (Auto) 7.2 TH/MM3 Lymphocytes # (Auto) 1.6 TH/MM3 Monocytes # (Auto) 0.4 TH/MM3 Eosinophils # (Auto) 1.0 TH/MM3 Basophils # (Auto) 0.1 TH/MM3 CBC Comment DIFF FINAL Differential Comment Erythrocyte Sedimentation Rate 69 mm/hr Prothrombin Time 10.5 SEC Prothromb Time International Ratio 1.0 RATIO Activated Partial Thromboplast Time 34.2 SEC Blood Urea Nitrogen 34 MG/DL Creatinine 1.36 MG/DL Random Glucose 506 MG/DL Total Protein 6.3 GM/DL Albumin 2.9 GM/DL Calcium Level 8.1 MG/DL Alkaline Phosphatase 171 U/L Aspartate Amino Transf (AST/SGOT) 28 U/L Alanine Aminotransferase (ALT/SGPT) 27 U/L Total Bilirubin 0.3 MG/DL Sodium Level 130 MEQ/L Potassium Level 5.3 MEQ/L Chloride Level 98 MEQ/L Carbon Dioxide Level 20.8 MEQ/L Anion Gap 11 MEQ/L Estimat Glomerular Filtration Rate 53 ML/MIN Lactic Acid Level 2.2 mmol/L C-Reactive Protein 12.20 MG/DL MDM Medical Decision Making Medical Screen Exam Complete: Yes Emergency Medical Condition: Yes Medical Record Reviewed: Yes Differential Diagnosis Cellulitis, PAD, DVT, wound, noncompliance Narrative Course 62-year-old male with history of PAD, cellulitis of the left lower extremity, diabetes, and BKA of the right leg presents to the emergency room after being told by his vascular surgeon, Dr. Crawford, to come to the ED for IV antibiotics for cellulitis. Patient was just discharged from the hospital 2 weeks ago with a prescription for Augmentin after having been treated with IV antibiotics for cellulitis. States upon stopping Augmentin, he developed worsening symptoms. Denies systemic signs of infection. I spoke to Dr. Crawford, who does not believe worsening symptoms are PAD but rather infectious etiology. Basic labs and blood cultures ordered and pending. CBC is unremarkable, anemia stable from previous. CMP shows hyperglycemia of 506, mild hyperkalemia, and evidence of dehydration. Patient given 1 L of fluids, 10 units insulin. Inflammatory markers are both moderately elevated. Lactic acid is 2.2. Patient was started on vancomycin. I spoke to the at this physician on-call, Dr. Valero, who agrees to accept this admission. Also recommend starting him on Zosyn. Patient admitted to medical service. Diagnosis Primary Impression: Cellulitis Qualified Codes: L03.116 - Cellulitis of left lower limb Admitting Information Admitting Physician Requests: Admit Condition: Stable Federica Farmer Jun 04, 2017 12:23
[2017-06-04 12:46] LABS: AUTOMATED NEUTROPHIL # 7.2 TH/MM3 (1.8-7.7); BASOPHIL # 0.1 TH/MM3 (0-0.2); BASOPHIL % 1.2 % (0.0-2.0); EOSINOPHIL % 9.4 % (0.0-4.0); HEMATOCRIT 27.3 % (39.0-51.0); HEMO FLAGS DIFF FINAL; LYMPH % 15.6 % (9.0-44.0); LYMPHOCYTE # 1.6 TH/MM3 (1.0-4.8); MEAN CELL VOLUME 90.9 FL (80.0-100.0); MEAN CORPUSCULAR HEMOGLOBIN 29.2 PG (27.0-34.0); MEAN CORPUSCULAR HGB CONC 32.1 % (32.0-36.0); NEUT % 69.8 % (16.0-70.0); PLATELET COUNT 191 TH/MM3 (150-450); RED CELL DISTRIBUTION WIDTH 16.2 % (11.6-17.2); WHITE BLOOD COUNT 10.3 TH/MM3 (4.0-11.0)
[2017-06-04 13:00] LABS: APTT (PATIENT) 34.2 SEC (24.3-30.1); PROTHROMBIN TIME - PATIENT 10.5 SEC (9.8-11.6)
[2017-06-04 13:05] LABS: ANION GAP 11 MEQ/L (5-15)
[2017-06-04 13:10] LABS: ALKALINE PHOSPHATASE 171 U/L (45-117); ALT (GPT) 27 U/L (12-78); AST (GOT) 28 U/L (15-37); BICARBONATE 20.8 MEQ/L (21.0-32.0); BLOOD UREA NITROGEN 34 MG/DL (7-18); CHLORIDE 98 MEQ/L (98-107); GLOMERULAR FILTRATION RATE 53 ML/MIN (>89); POTASSIUM 5.3 MEQ/L (3.5-5.1); SODIUM (NA) 130 MEQ/L (136-145); TOTAL BILIRUBIN ADULT 0.3 MG/DL (0.2-1.0)
[2017-06-04 13:22] VITALS: BP 125/69; PULSE 80; RESP 16; O2SAT 94
[2017-06-04] MEDS ORDERED: INSULIN HUMAN REGULAR 1,000 UNITS/10 ML VIAL IV PUSH ONE (13:30)
[2017-06-04] MEDS ORDERED: SODIUM CHLOR 0.9% 1000 ML INJ 1,000 ML IV ONE (13:45)
[2017-06-04] MEDS ORDERED: VANCOMYCIN INJ 1,250 MG in SODIUM CHLOR 0.9% 250 ML INJ 250 ML IV ONE (13:45)
[2017-06-04] MEDS ORDERED: NALOXONE HCL 0.4 MG/ML AMP IV PUSH PRN (14:00)
[2017-06-04] MEDS ORDERED: SENNOSIDES 8.6 MG TAB PO PRN (14:00)
[2017-06-04] MEDS ORDERED: BISACODYL 10 MG SUPP RECTAL PRN (14:00)
[2017-06-04] MEDS ORDERED: PROCHLORPERAZINE 25 MG SUPP RECTAL PRN (14:00)
[2017-06-04] MEDS ORDERED: PIPERACIL-TAZO 3.375 GM PREMIX 50 ML IV ONE (14:00)
[2017-06-04] MEDS ORDERED: GLUCAGON 1 MG/ML VIAL OTHER PRN (14:00)
[2017-06-04] MEDS ORDERED: MAGNESIUM HYDROXIDE SUSP 30 ML CUP PO PRN (14:00)
[2017-06-04] MEDS ORDERED: oxyCODONE/ACETAMINOPHEN 5 MG/325 MG TAB PO PRN (14:00)
[2017-06-04] MEDS ORDERED: LACTULOSE SYRUP 20 GM/30 ML CUP PO PRN (14:00)
[2017-06-04] MEDS ORDERED: DEXTROSE 50% IN WATER 50 ML VIAL(D50) IV PUSH PRN (14:00)
[2017-06-04] MEDS ORDERED: ACETAMINOPHEN 325 MG TAB PO PRN ×2 (14:00)
[2017-06-04] MEDS ORDERED: Vancomycin Consult Pharmacy 1 EA OTHER SCH (14:00)
[2017-06-04] MEDS ORDERED: HYDROmorphone HCL PF 1 MG/ML VIAL IV PUSH PRN (14:00)
[2017-06-04] MEDS ORDERED: ONDANSETRON HCL 4 MG/2 ML VIAL IVP PRN (14:00)
[2017-06-04] MEDS ORDERED: SODIUM CHLORIDE 0.9% FLUSH 10 ML FLUSH IV FLUSH PRN (14:00)
[2017-06-04] MEDS: SODIUM CHLOR 0.9% 1000 ML INJ 1,000 ML IV SCH ×2 (14:32→23:21)
[2017-06-04 14:37] VITALS: BP 136/71; PULSE 100; RESP 28; O2SAT 99
[2017-06-04] MEDS ORDERED: HYDROmorphone HCL PF 0.5 MG/0.5 ML SYRINGE IV PUSH PRN (15:30)
[2017-06-04] MEDS: oxyCODONE/ACETAMINOPHEN 10 MG/325 MG TAB PO PRN ×2 (15:33→21:47)
--- NOTE | 2017-06-04 15:40 | HHI.HP ---
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 Presents to the emergency department for evaluation of her persistent left lower extremity redness for at least the past 1-1/2 weeks and pain and swelling. Patient states that when he was discharged from the hospital May 19 he began treating for cellulitis with IV antibiotics and was given a prescription for Augmentin. States he finished the Augmentin. Had noticed gradually increasing worsening leg symptoms. Had left lower extremity ulcerations that have been slowly healing. Has been applying unknown cream to them daily. It is worsening with walking improved at rest takes Percocet at home for pain and asked for pain medications as soon as I walked into the room had been followed by vascular surgery DR SHARIF, who asked him to come into the hospital regarding this. Patient denies any fever chills or nausea vomiting had 2 ultrasounds over the past 2 months left leg that of both been negative for any DVTs I question whether or not patient has been compliant since she is still actively smoking and has been told to stop smoking on many many occasions Review of Systems Constitutional: COMPLAINS OF: Fatigue, DENIES: Diaphoretic episodes, Fever, Weight gain, Weight loss, Chills, Dizziness, Change in appetite Endocrine: DENIES: Heat/cold intolerance, Polydipsia, Polyuria, Polyphagia Eyes: DENIES: Blurred vision, Diplopia, Eye inflammation, Eye pain Ears, nose, mouth, throat: DENIES: Tinnitus, Hearing loss, Vertigo, Nasal discharge, Odynophagia Respiratory: DENIES: Apneas, Cough, Snoring, Wheezing, Hemoptysis Cardiovascular: DENIES: Chest pain, Palpitations, Syncope Gastrointestinal: DENIES: Abdominal pain, Black stools, Bloody stools Genitourinary: DENIES: Sexual dysfunction, Urinary frequency Musculoskeletal: COMPLAINS OF: Joint pain, Muscle aches, DENIES: Stiffness, Joint Swelling Integumentary: DENIES: Abnormal pigmentation, Nail changes Hematologic/lymphatic: DENIES: Bruising, Lymphadenopathy Immunologic/allergic: DENIES: Eczema, Urticaria Neurologic: DENIES: Abnormal gait, Headache, Localized weakness, Paresthesias, Seizures Psychiatric: COMPLAINS OF: Anxiety, Agitation, DENIES: Confusion, Mood changes , Depression, Hallucinations Except as stated in HPI: all other systems reviewed are Neg Past Family Social History Past Medical History Osteoarthritis Anxiety and depression Hypertension Hyperlipidemia Chronic pain Malignant noncompliance History of esophageal ulcer questionable stricture and dilatation GERD Chronic cervical and lumbar spine issues Right [id number] amputation Chronic neuropathy chronic peripheral arterial disease and peripheral vascular disease still actively smoking History of IA History of seizures due to hypoglycemia Thyroid disorder Past Surgical History Exploration of left brachial plexus Appendectomy Colectomy Right [id number] leg amputation Coronary artery bypass graft 4 L5-S1 fusions Tonsillectomy Hydrocele surgery 2 Right leg surgery and pinning Clavicle surgery History of angioplasty Reported Medications Reported Meds & Active Scripts Active Levemir Flextouch Pen Inj (Insulin Detemir) 300 unit/3 ML Pen 1 Units SQ BID Levemir Inj (Insulin Detemir) 1,000 unit/ 10 ML Vial 8 Units SQ BID 30 Days Do not mix with any other Insulin. Novolog Inj (Insulin Aspart) 1,000 Unit/10 Ml Vial 1-9 Units SQ ACHS sugars less than 70,(0)units; sugars 150-199,(1) unit; sugars 200-249,(3) units; sugars 250-299,(5) units; sugars 300-349,(7) units; sugars greater than 349,(9) units. inform PCP if < 70 or > 400. Hydrochlorothiazide 25 Mg Tab 25 Mg PO DAILY Lisinopril 10 Mg Tab 10 Mg PO Q12HR Atorvastatin (Atorvastatin Calcium) 80 Mg Tab 80 Mg PO HS 30 Days Prilosec (Omeprazole Magnesium) 20 Mg Tab 1 Tab PO BID Lyrica (Pregabalin) 100 Mg Cap 100 Mg PO TID Adult Aspirin EC Low Strength (Aspirin) 81 Mg Tabec 81 Mg PO DAILY 30 Days Norvasc (Amlodipine Besylate) 5 Mg Tab 5 Mg PO DAILY Nortriptyline (Nortriptyline HCl) 75 Mg Cap 75 Mg PO HS Plavix (Clopidogrel Bisulfate) 75 Mg Tab 75 Mg PO DAILY Synthroid (Levothyroxine Sodium) 100 Mcg Tab 100 Mcg PO DAILY@06 [place] (Hydrocodone-Acetaminophen) 10-325 Mg Tab 1 Tab PO Q6HR Carvedilol 6.25 Mg Tab 6.25 Mg PO BID Reported B12 (Cyanocobalamin) 1,000 Mcg Tab 1,000 Mcg PO DAILY Allergies: Coded Allergies: morphine (Verified Adverse Reaction, Severe, STS HE BECOMES VIOLENT., ) Uncoded Allergies: UNFRACTIONATED HEPARIN (Adverse Reaction, Severe, PT UNSURE OF REACTION, ) patient states he's not allergic, " I just bleed easily", explained to patient drug's purpose. Active Ordered Medications Current Medications Insulin Human Regular (NovoLIN R INJ) 10 units ONCE ONCE IV PUSH Last administered on 06/04/17 14:06; Start 06/04/17 at 13:30; Stop 06/04/17 at 13 :31; Status DC Sodium Chloride 1,000 ml @ 999 mls/hr BOLUS ONCE IV Last administered on 14:06; Start 06/04/17 at 13:45; Stop 06/04/17 at 14:45; Status DC Vancomycin HCl 1250 mg/Sodium Chloride 262.5 ml @ 250 mls/hr ONCE ONCE IV Last administered on 06/04/17 14:33; Start 06/04/17 at 13:45; Stop 06/04/17 at 14:47; Status DC Dextrose (D50w (Vial) Inj) 50 ml UNSCH PRN IV PUSH HYPOGLYCEMIA-SEE COMMENTS; Start 06/04/17 at 14:00 Glucagon (Glucagon Inj) 1 mg UNSCH PRN OTHER HYPOGLYCEMIA-SEE COMMENTS; Start 06/04/17 at 14:00 Insulin Aspart (NovoLOG SUPPLEMENTAL SCALE) 1 ACHS SLIDING SCALE SQ ; Start at 17:00 Piperacillin Sod/ Tazobactam Sod 50 ml @ 100 mls/hr ONCE ONCE IV ; Start at 14:00; Stop 06/04/17 at 14:29; Status DC Sodium Chloride 1,000 ml @ 100 mls/hr Q10H IV Last administered on 06/04/17 14:32; Start 06/04/17 at 14:00 Sodium Chloride (NS Flush) 2 ml UNSCH PRN IV FLUSH FLUSH AFTER USING IV ACCESS ; Start 06/04/17 at 14:00 Sodium Chloride (NS Flush) 2 ml BID IV FLUSH ; Start 06/04/17 at 21:00 Acetaminophen (Tylenol) 650 mg Q4H PRN PO TEMP > 100.4; Start 06/04/17 at 14: 00 Ondansetron HCl (Zofran Inj) 4 mg Q6H PRN IVP NAUSEA OR VOMITING; Start at 14:00 Prochlorperazine (Compazine Supp) 25 mg Q12H PRN RECTAL NAUSEA OR VOMITING; Start 06/04/17 at 14:00 Acetaminophen (Tylenol) 650 mg Q6H PRN PO PAIN SCALE 1 TO 2; Start 06/04/17 at 14:00 Oxycodone/ Acetaminophen (Percocet 5-325 Mg) 1 tab Q6H PRN PO PAIN SCALE 3 TO 5; Start 06/04/17 at 14:00 Oxycodone/ Acetaminophen (Percocet 10-325 Mg) 1 tab Q6H PRN PO PAIN SCALE 6 TO 10; Start 06/04/17 at 14:00 Hydromorphone HCl (Dilaudid Pf Inj) 0.5 mg Q3H PRN IV PUSH Pain 3-5; if unable to take PO; Start 06/04/17 at 15:30 Hydromorphone HCl (Dilaudid Pf Inj) 1 mg Q3H PRN IV PUSH Pain 6-10;if unable to take PO; Start 06/04/17 at 14:00 Naloxone HCl (Narcan Inj) 0.4 mg UNSCH PRN IV PUSH SEE LABEL COMMENTS; Start 06/04/17 at 14:00 Senna/Docusate Sodium (Afua-Colace) 1 tab BID PO ; Start 06/04/17 at 21:00 Magnesium Hydroxide (Milk Of Magnesia Liq) 30 ml Q12H PRN PO Mild constipation ; Start 06/04/17 at 14:00 Sennosides (Senokot) 17.2 mg Q12H PRN PO Moderate constipation; Start at 14:00 Bisacodyl (Dulcolax Supp) 10 mg DAILY PRN RECTAL SEVERE CONSITIPATION; Start 06/04/17 at 14:00 Lactulose (Lactulose Liq) 30 ml DAILY PRN PO SEVERE CONSITIPATION; Start 06/04 at 14:00 Pharmacy Profile Note 0 ml @ 0 mls/hr UNSCH XX ; Start 06/04/17 at 14:00; Status UNV Piperacillin Sod/ Tazobactam Sod 100 ml @ 200 mls/hr Q6H IV ; Start 06/04/17 at 14:00; Status UNV Amlodipine Besylate (Norvasc) 5 mg DAILY PO ; Start 06/05/17 at 09:00 Aspirin (Ecotrin Ec) 81 mg DAILY PO ; Start 06/05/17 at 09:00 Atorvastatin Calcium (Lipitor) 80 mg HS PO ; Start 06/04/17 at 21:00 Carvedilol (Coreg) 6.25 mg BID PO ; Start 06/04/17 at 21:00 Clopidogrel Bisulfate (Plavix) 75 mg DAILY PO ; Start 06/05/17 at 09:00 Hydrochlorothiazide (Hydrodiuril) 25 mg DAILY PO ; Start 06/05/17 at 09:00 Insulin Detemir (Levemir Inj) 8 units BID SQ ; Start 06/04/17 at 15:15 Levothyroxine Sodium (Synthroid) 100 mcg DAILY@06 PO ; Start 06/05/17 at 06:00 Lisinopril (Prinivil) 10 mg Q12HR PO ; Start 06/04/17 at 21:00 Nortriptyline HCl (Pamelor) 75 mg HS PO ; Start 06/04/17 at 21:00 Pregabalin (Lyrica) 100 mg TID PO ; Start 06/04/17 at 18:00 Cyanocobalamin (Vitamin B12) 1,000 mcg DAILY PO ; Start 06/05/17 at 09:00 Pantoprazole Sodium (Protonix) 20 mg BID PO ; Start 06/04/17 at 21:00 Family History Probable high blood pressure Social History Tobacco abuse still smoking daily Denies any illicit denies any alcohol use Physical Exam Vital Signs Vital Signs Date Time Temp Pulse Resp B/P (MAP) Pulse Ox O2 Delivery O2 Flow Rate FiO2 06/04/17 15:14 06/04/17 14:37 100 28 136/71 (92) 99 Nasal Cannula 4.00 06/04/17 13:22 80 16 125/69 (87) 94 Nasal Cannula 06/04/17 11:45 98.1 93 22 118/63 (81) 98 06/04/17 11:29 98.0 103 20 114/53 (73) 94 Physical Exam GENERAL: This is a well-nourished, well-developed patient, in no apparent distress. SKIN: No rashes, ecchymoses or lesions. Cool and dry. Right lower extremity has [id number]-[id number]-[id number] amputation left lower extremity has some wounds on the dietz chronic HEAD: Atraumatic. Normocephalic. No temporal or scalp tenderness. EYES: Pupils equal round and reactive. Extraocular motions intact. No scleral icterus. No injection or drainage. ENT: Nose without bleeding, purulent drainage or septal hematoma. Throat without erythema, tonsillar hypertrophy or exudate. Uvula midline. Airway patent. Poor dentition tongue is midline NECK: Trachea midline. No JVD or lymphadenopathy. Supple, nontender, no meningeal signs. CARDIOVASCULAR: Regular rate and rhythm without murmurs, gallops, or rubs. S1 and S2 no S3 or S4 RESPIRATORY: Clear to auscultation. Breath sounds equal bilaterally. No wheezes , rales, or rhonchi. GASTROINTESTINAL: Abdomen soft, non-tender, nondistended. No hepato-splenomegaly , or palpable masses. No guarding. MUSCULOSKELETAL: Extremities without clubbing, cyanosis, or edema. No joint tenderness, effusion, or edema noted. No calf tenderness. Negative Homans sign bilaterally. NEUROLOGICAL: Awake and alert. Cranial nerves II through XII intact. Motor and sensory grossly within normal limits. Five out of 5 muscle strength in all muscle groups. Normal speech. Insight and judgment is limited Mood and behavior is somewhat appropriate Has drug-seeking behavior Laboratory Laboratory Tests Test 06/04/17 12:20 White Blood Count 10.3 Red Blood Count 3.00 Hemoglobin 8.8 Hematocrit 27.3 Mean Corpuscular Volume 90.9 Mean Corpuscular Hemoglobin 29.2 Mean Corpuscular Hemoglobin Concent 32.1 Red Cell Distribution Width 16.2 Platelet Count 191 Mean Platelet Volume 9.5 Neutrophils (%) (Auto) 69.8 Lymphocytes (%) (Auto) 15.6 Monocytes (%) (Auto) 4.0 Eosinophils (%) (Auto) 9.4 Basophils (%) (Auto) 1.2 Neutrophils # (Auto) 7.2 Lymphocytes # (Auto) 1.6 Monocytes # (Auto) 0.4 Eosinophils # (Auto) 1.0 Basophils # (Auto) 0.1 CBC Comment DIFF FINAL Differential Comment Erythrocyte Sedimentation Rate 69 Prothrombin Time 10.5 Prothromb Time International Ratio 1.0 Activated Partial Thromboplast Time 34.2 Blood Urea Nitrogen 34 Creatinine 1.36 Random Glucose 506 Total Protein 6.3 Albumin 2.9 Calcium Level 8.1 Alkaline Phosphatase 171 Aspartate Amino Transf (AST/SGOT) 28 Alanine Aminotransferase (ALT/SGPT) 27 Total Bilirubin 0.3 Sodium Level 130 Potassium Level 5.3 Chloride Level 98 Carbon Dioxide Level 20.8 Anion Gap 11 Estimat Glomerular Filtration Rate 53 Lactic Acid Level 2.2 C-Reactive Protein 12.20 Date/Time Source Procedure Growth Status 06/04/17 12:20 Blood Peripheral Aerobic Blood Culture Pending Received 06/04/17 12:20 Blood Peripheral Anaerobic Blood Culture Pending Received Result Diagram: 06/04/17 1220 06/04/17 1220 Caprini VTE Risk Assessment Caprini VTE Risk Assessment: Mod/High Risk (score >= 2) Caprini Risk Assessment Model Point Value = 1 Point Value = 2 Point Value = 3 Point Value = 5 Age 41-60 Minor surgery BMI > 25 kg/m2 Swollen legs Varicose veins or History of unexplained or recurrent spontaneous Oral contraceptives or hormone replacement Sepsis (< 1 month) Serious lung disease, including pneumonia (< 1 month) Abnormal pulmonary function Acute myocardial infarction Congestive heart failure (< 1 month) History of inflammatory bowel disease Medical patient at bed rest Age 61-74 Arthroscopic surgery Major open surgery (> 45 min) Laparoscopic surgery (> 45 min) Malignancy Confined to bed (> 72 hours) Immobilizing plaster cast Central venous access Age >= 75 History of VTE Family history of VTE Factor V Leiden Prothrombin [id number] Lupus anticoagulant Anticardiolipin antibodies Elevated serum homocysteine Heparin-induced thrombocytopenia Other congenital or acquired thrombophilia Stroke (< 1 month) Elective arthroplasty Hip, pelvis, or leg fracture Acute spinal cord injury (< 1 month) Prophylaxis Regimen Total Risk Factor Score Risk Level Prophylaxis Regimen 0-1 Low Early ambulation 2 Moderate Order ONE of the following: *Sequential Compression Device (SCD) *Heparin 5000 units SQ BID 3-4 Higher Order ONE of the following medications: *Heparin 5000 units SQ TID *Enoxaparin/Lovenox 40 mg SQ daily (WT < 150 kg, CrCl > 30 mL/min) *Enoxaparin/Lovenox 30 mg SQ daily (WT < 150 kg, CrCl > 10-29 mL/min) *Enoxaparin/Lovenox 30 mg SQ BID (WT < 150 kg, CrCl > 30 mL/min) AND/OR *Sequential Compression Device (SCD) 5 or more Highest Order ONE of the following medications: *Heparin 5000 units SQ TID (Preferred with Epidurals) *Enoxaparin/Lovenox 40 mg SQ daily (WT < 150 kg, CrCl > 30 mL/min) *Enoxaparin/Lovenox 30 mg SQ daily (WT < 150 kg, CrCl > 10-29 mL/min) *Enoxaparin/Lovenox 30 mg SQ BID (WT < 150 kg, CrCl > 30 mL/min) AND *Sequential Compression Device (SCD) Assessment and Plan Assessment and Plan Chronic cellulitis of the left lower extremity with poor medical compliance as an outpatient Started on vancomycin and Zosyn Can hopefully be transitioned to Augmentin the next day or so and hopefully patient will take Peripheral vascular occlusive disease peripheral arterial disease status post right jygkx-[id number]-[id number] amputation Diabetes mellitus poorly controlled continue Accu-Cheks before meals and at bedtime sliding scale coverage History of right above the knee amputation Coronary artery disease history of CABG 4 Chronic pain continue on pain control Hypertension continue home medications Hyperlipidemia continue home medications Hypothyroidism check labs and continue home medications Chronic pain and depression continue home medications and pain control A.m. labs Code Status fULL CODE Discussed Condition With Emergency room and nurse and patient Physician Certification 2 Midnight Certification Type: Admission for Inpatient Services Order for Inpatient Services The services are ordered in accordance with Medicare regulations or non- Medicare payer requirements, as applicable. In the case of services not specified as inpatient-only, they are appropriately provided as inpatient services in accordance with the 2-midnight benchmark. Estimated LOS (days): 4 4 days is the estimated time the patient will need to remain in the hospital, assuming treatment plan goals are met and no additional complications. Post-Hospital Plan: Not yet determined Luis Fernando Valero DO Jun 04, 2017 15:40
[2017-06-04] MEDS ORDERED: FUROSEMIDE 40 MG/4 ML VIAL IV PUSH ONE (16:00)
[2017-06-04] MEDS ORDERED: RESP: ALBUTEROL 2.5 MG/IPRATROPIUM 0.5 MG NEB (PRN) NEB (16:00)
[2017-06-04] MEDS: NICOTINE 14 MG/24 HR PATCH T-DERMAL SCH (16:00)
[2017-06-04 16:10] VITALS: BP 128/66; PULSE 97; RESP 18; TEMP 97.4; O2SAT 88
[2017-06-04] MEDS: guaiFENesin E.R. 600 MG TAB PO SCH ×2 (16:28→21:26)
--- NOTE | 2017-06-04 16:31 | RADRPT ---
EXAM DATE/TIME: 06/04/2017 16:01 [facility] COMPARISON: CHEST SINGLE AP, May 14, 2017, 19:36. INDICATIONS : Shortness of breath. MEDICAL HISTORY : Cardiovascular disease. Myocardial infarction. Gastroesophageal reflux SURGICAL HISTORY : CABG. Appendectomy. Cholecystectomy. ENCOUNTER: Subsequent ACUITY: 2 weeks PAIN SCORE: 0/10 LOCATION: Bilateral chest FINDINGS: Portable AP view of the chest demonstrates a normal-sized cardiac silhouette in this patient post med magali sternotomy and CABG. There are normal a and lower lung zone interstitial opacities bilaterally wi th slight blunting of the costophrenic sulci. No pneumothorax is visualized. The bones and soft tissu es demonstrate no acute abnormality. CONCLUSION: Interstitial opacities with lower lung zone predominance bilaterally are new since the prior study. T he appearance and distribution favors pulmonary edema as etiology. There are likely trace bilateral p leural effusions. Ramon Peters MD on June 04, 2017 at 16:25 Board Certified Radiologist. This report was verified electronically.
[2017-06-04] MEDS: FONDAPARINUX SODIUM 2.5 MG/0.5 ML SYRINGE SQ SCH (18:03)
[2017-06-04] MEDS: PREGABALIN 100 MG CAP PO SCH (18:03)
[2017-06-04] MEDS: PIPERACIL-TAZO 4.5 GM PREMIX 100 ML IV SCH ×2 (18:03→23:20)
[2017-06-04] MEDS: INSULIN ASPART SUPPLEMENTAL SCALE SQ SCH ×2 (18:04→21:00)
[2017-06-04] MEDS: INSULIN DETEMIR 100 UNITS/ML VIAL SQ SCH ×3 (18:05→21:27)
[2017-06-04 20:11] VITALS: BP 119/63; PULSE 104; RESP 17; TEMP 98; O2SAT 96
[2017-06-04] MEDS: methylPREDNISolone SOD SUCC 40 MG/1 ML VIAL IV PUSH SCH (21:24)
[2017-06-04] MEDS: DOCUSATE SODIUM 50 MG/SENNA 8.6 MG TAB PO SCH (21:25)
[2017-06-04] MEDS: ATORVASTATIN 80 MG TAB PO SCH (21:25)
[2017-06-04] MEDS: SODIUM CHLORIDE 0.9% FLUSH 10 ML FLUSH IV FLUSH SCH (21:25)
[2017-06-04] MEDS: CARVEDILOL 6.25 MG TAB PO SCH (21:25)
[2017-06-04] MEDS: PANTOPRAZOLE SOD 20 MG DELAYED RELEASE TAB PO SCH (21:25)
[2017-06-04] MEDS: LISINOPRIL 10 MG TAB PO SCH (21:26)
[2017-06-04] MEDS: NORTRIPTYLINE HCL 25 MG CAP PO SCH (23:20)
[2017-06-05] VITALS (8 sets, daily range): BP systolic 93–119; BP diastolic 52–67; PULSE 84–96; RESP 16–18; TEMP 97.5–98.6; O2SAT 93–96
[2017-06-05 05:35] LABS: AUTOMATED NEUTROPHIL # 10.5 TH/MM3 (1.8-7.7); BASOPHIL % 0.3 % (0.0-2.0); EOSINOPHIL % 0.1 % (0.0-4.0); HEMO FLAGS DIFF FINAL; LYMPH % 5.1 % (9.0-44.0); LYMPHOCYTE # 0.6 TH/MM3 (1.0-4.8); MEAN CELL VOLUME 89.7 FL (80.0-100.0); MEAN CORPUSCULAR HEMOGLOBIN 29.4 PG (27.0-34.0); MEAN CORPUSCULAR HGB CONC 32.7 % (32.0-36.0); NEUT % 93.5 % (16.0-70.0); PLATELET COUNT 181 TH/MM3 (150-450); RED BLOOD COUNT 3.11 MIL/MM3 (4.50-5.90); RED CELL DISTRIBUTION WIDTH 15.4 % (11.6-17.2); WHITE BLOOD COUNT 11.2 TH/MM3 (4.0-11.0)
[2017-06-05] MEDS: LEVOTHYROXINE SODIUM 100 MCG TAB PO SCH (05:56)
[2017-06-05] MEDS: oxyCODONE/ACETAMINOPHEN 10 MG/325 MG TAB PO PRN ×3 (05:56→18:26)
[2017-06-05] MEDS: PIPERACIL-TAZO 4.5 GM PREMIX 100 ML IV SCH (05:56)
[2017-06-05 06:19] LABS: ALKALINE PHOSPHATASE 149 U/L (45-117); ALT (GPT) 18 U/L (12-78); ANION GAP 11 MEQ/L (5-15); AST (GOT) 17 U/L (15-37); BICARBONATE 21.4 MEQ/L (21.0-32.0); BLOOD UREA NITROGEN 26 MG/DL (7-18); CHLORIDE 102 MEQ/L (98-107); FREE T4 1.61 NG/DL (0.76-1.46); GLOMERULAR FILTRATION RATE 73 ML/MIN (>89); MAGNESIUM 1.9 MG/DL (1.5-2.5); POTASSIUM 4.7 MEQ/L (3.5-5.1); SODIUM (NA) 134 MEQ/L (136-145); TOTAL BILIRUBIN ADULT 0.4 MG/DL (0.2-1.0)
[2017-06-05] MEDS: INSULIN ASPART SUPPLEMENTAL SCALE SQ SCH ×4 (08:00→21:23)
[2017-06-05] MEDS: HYDROCHLOROTHIAZIDE 25 MG TAB PO SCH (08:10)
[2017-06-05] MEDS: CYANOCOBALAMIN 1,000 MCG TAB PO SCH (08:10)
[2017-06-05] MEDS: CARVEDILOL 6.25 MG TAB PO SCH ×2 (08:11→21:00)
[2017-06-05] MEDS: CLOPIDOGREL 75 MG TAB PO SCH (08:11)
[2017-06-05] MEDS: amLODIPine BESYLATE 5 MG TAB PO SCH (08:11)
[2017-06-05] MEDS: ASPIRIN EC 81 MG TABEC PO SCH (08:11)
[2017-06-05] MEDS: PANTOPRAZOLE SOD 20 MG DELAYED RELEASE TAB PO SCH ×2 (08:11→21:33)
[2017-06-05] MEDS: PREGABALIN 100 MG CAP PO SCH ×3 (08:11→17:38)
[2017-06-05] MEDS: DOCUSATE SODIUM 50 MG/SENNA 8.6 MG TAB PO SCH ×2 (08:11→21:33)
[2017-06-05] MEDS: guaiFENesin E.R. 600 MG TAB PO SCH ×2 (08:11→21:33)
[2017-06-05] MEDS: NICOTINE 14 MG/24 HR PATCH T-DERMAL SCH (08:12)
[2017-06-05] MEDS: LISINOPRIL 10 MG TAB PO SCH ×2 (08:12→21:00)
[2017-06-05] MEDS: REMOVE OLD PATCH T-DERMAL SCH (08:13)
[2017-06-05] MEDS: SODIUM CHLOR 0.9% 1000 ML INJ 1,000 ML IV SCH (08:13)
[2017-06-05] MEDS: INSULIN DETEMIR 100 UNITS/ML VIAL SQ SCH ×2 (08:14→21:23)
[2017-06-05] MEDS: SODIUM CHLORIDE 0.9% FLUSH 10 ML FLUSH IV FLUSH SCH ×2 (08:14→21:34)
[2017-06-05] MEDS: methylPREDNISolone SOD SUCC 40 MG/1 ML VIAL IV PUSH SCH (08:14)
--- NOTE | 2017-06-05 09:43 | HHI.PR ---
Subjective Remarks awake and alert, states that he completed discharge meds of Augmentin when he was discharged he is complaining of the ulcer on his left LE- dietz- that states is not healing - - per patient dry- not draining states erythema of the leg persists but better Objective Vitals Vital Signs Date Time Temp Pulse Resp B/P (MAP) Pulse Ox O2 Delivery O2 Flow Rate FiO2 06/05/17 07:59 98.2 94 16 117/67 (84) 95 06/05/17 04:38 98.1 89 17 119/67 (84) 94 06/05/17 00:20 98.6 96 17 105/67 (80) 95 06/04/17 20:11 98.0 104 17 119/63 (81) 96 06/04/17 19:00 Nasal Cannula 3.00 06/04/17 16:10 97.4 97 18 128/66 (86) 88 06/04/17 15:30 Nasal Cannula 3.00 06/04/17 15:14 06/04/17 14:37 100 28 136/71 (92) 99 Nasal Cannula 4.00 06/04/17 13:22 80 16 125/69 (87) 94 Nasal Cannula 06/04/17 11:45 98.1 93 22 118/63 (81) 98 06/04/17 11:29 98.0 103 20 114/53 (73) 94 I/O 06/04/17 06/04/17 06/04/17 06/05/17 06/05/17 06/05/17 07:00 15:00 23:00 07:00 15:00 23:00 Intake Total 1921 ml 120 ml Output Total 550 ml 700 ml Balance 1371 ml -580 ml Intake Oral 240 ml 120 ml IV Total 1681 ml Output Urine Total 550 ml 700 ml # Bowel Movements 1 Result Diagram: 06/05/17 0459 06/05/17 0850 Imaging Last Impressions Chest X-Ray 06/04/17 0000 Signed Impressions: Service Date/Time: Sunday, June 04, 2017 16:01 - CONCLUSION: Interstitial opacities with lower lung zone predominance bilaterally are new since the prior study. The appearance and distribution favors pulmonary edema as etiology. There are likely trace bilateral pleural effusions. Ramon Peters MD Objective Remarks awake and alert, oriented x 3, no acute distress anicteric lungs no rales or wheezes regular rhythm abdomen soft, nontender AKA-right mild erythema - entire left lower leg, small dry superficial wound on the left dietz ambulated well with walker A/P Assessment and Plan 62 years old male Chronic Mild erythema/Rubor of the left lower extremity with superficial wound left dietz- swears completed antibiotic course of Augmentin as OP Left superficial wound- dietz area- dry. Started on vancomycin and Zosyn- will DC for now no fever no WBC elevation ID consult for recommendation- ? need for further any antibiotic course wound care team consult Peripheral vascular occlusive disease peripheral arterial disease status post right [id number] amputation. VAscular surgery ff Diabetes mellitus poorly controlled continue Accu-Cheks before meals and at bedtime sliding scale coverage A1C pending. Increase levemer to 10 units Sq bid DC IV steroids RENE- resolved S/P IVF. ff BMP Coronary artery disease history of CABG 4. continue meds Chronic pain continue on pain control Hypertension continue home medications Hyperlipidemia continue home medications Hypothyroidism check labs and continue home medications depression continue home medications and pain control on Arixtra PT ff- up and ambulating with walker CM DC planning- assistance with DC needs Nela Coyle MD Jun 05, 2017 09:43
[2017-06-05 12:03] LABS: HEMOGLOBIN A1a 1.8 %; HEMOGLOBIN A1b 1.3 %; HEMOGLOBIN Ao 78.3 %; HEMOGLOBIN F 1.7 %; HEMOGLOBIN LA1C 2.9 %; HEMOGLOBIN P3 5.3 %
[2017-06-05] MEDS ORDERED: VANCOMYCIN 1,000 MG/NS 250 ML IV SCH ×2 (15:00)
--- NOTE | 2017-06-05 15:36 | PD.CAR.PN ---
CVT Progress Note Subjective/Hospital Course: Patient seen Full consult dictated Thanks J Objective: Vital Signs Date Time Temp Pulse Resp B/P (MAP) Pulse Ox O2 Delivery O2 Flow Rate FiO2 06/05/17 13:02 94 Room Air 06/05/17 11:53 98.1 84 16 95/52 (66) 94 06/05/17 11:13 95 Nasal Cannula 3.00 06/05/17 07:59 98.2 94 16 117/67 (84) 95 06/05/17 04:38 98.1 89 17 119/67 (84) 94 06/05/17 00:20 98.6 96 17 105/67 (80) 95 06/04/17 20:11 98.0 104 17 119/63 (81) 96 06/04/17 19:00 Nasal Cannula 3.00 06/04/17 16:10 97.4 97 18 128/66 (86) 88 Labs: Laboratory Tests Test 06/05/17 04:59 06/05/17 08:50 White Blood Count 11.2 TH/MM3 (4.0-11.0) Red Blood Count 3.11 MIL/MM3 (4.50-5.90) Hemoglobin 9.1 GM/DL (13.0-17.0) Hematocrit 28.0 % (39.0-51.0) Mean Corpuscular Volume 89.7 FL (80.0-100.0) Mean Corpuscular Hemoglobin 29.4 PG (27.0-34.0) Mean Corpuscular Hemoglobin Concent 32.7 % (32.0-36.0) Red Cell Distribution Width 15.4 % (11.6-17.2) Platelet Count 181 TH/MM3 (150-450) Mean Platelet Volume 10.1 FL (7.0-11.0) Neutrophils (%) (Auto) 93.5 % (16.0-70.0) Lymphocytes (%) (Auto) 5.1 % (9.0-44.0) Monocytes (%) (Auto) 1.0 % (0.0-8.0) Eosinophils (%) (Auto) 0.1 % (0.0-4.0) Basophils (%) (Auto) 0.3 % (0.0-2.0) Neutrophils # (Auto) 10.5 TH/MM3 (1.8-7.7) Lymphocytes # (Auto) 0.6 TH/MM3 (1.0-4.8) Monocytes # (Auto) 0.1 TH/MM3 (0-0.9) Eosinophils # (Auto) 0.0 TH/MM3 (0-0.4) Basophils # (Auto) 0.0 TH/MM3 (0-0.2) CBC Comment DIFF FINAL Differential Comment Blood Urea Nitrogen 26 MG/DL (7-18) Creatinine 1.04 MG/DL (0.60-1.30) Random Glucose 275 MG/DL (74-106) 382 MG/DL (74-106) Total Protein 5.9 GM/DL (6.4-8.2) Albumin 2.4 GM/DL (3.4-5.0) Calcium Level 7.6 MG/DL (8.5-10.1) Phosphorus Level 3.4 MG/DL (2.5-4.9) Magnesium Level 1.9 MG/DL (1.5-2.5) Alkaline Phosphatase 149 U/L (45-117) Aspartate Amino Transf (AST/SGOT) 17 U/L (15-37) Alanine Aminotransferase (ALT/SGPT) 18 U/L (12-78) Total Bilirubin 0.4 MG/DL (0.2-1.0) Sodium Level 134 MEQ/L (136-145) Potassium Level 4.7 MEQ/L (3.5-5.1) Chloride Level 102 MEQ/L (98-107) Carbon Dioxide Level 21.4 MEQ/L (21.0-32.0) Anion Gap 11 MEQ/L (5-15) Estimat Glomerular Filtration Rate 73 ML/MIN (>89) Hemoglobin A1c 8.8 % (4.3-6.0) Free Thyroxine 1.61 NG/DL (0.76-1.46) Thyroid Stimulating Hormone 3rd Gen 0.569 uIU/ML (0.358-3.740) Result Diagram: 06/05/17 0459 06/05/17 0850 Rudy Balderas MD Jun 05, 2017 15:36
--- NOTE | 2017-06-05 16:46 | MB ---
cc: RUDY SHARIF MD DATE OF CONSULTATION 06/05/17 REASON FOR CONSULTATION Peripheral vascular disease, ischemia of the left leg and cellulitis of the left leg with small ulcers. HISTORY OF PRESENT ILLNESS This 62-year-old male is known to me from previous admissions. He presented to my office for evaluation of his right AKA stump which appears to have been fine, but the patient noted cellulitis and rubor of the left leg extending over the dorsum of the foot and up the calf with some shallow ulcers. It turns out the patient was in the emergency room, was given antibiotics which he ran out off and then so gradually increasing symptoms over the last 10 days. He has been putting some cream on it that got it worse I guess. At this point, I have sent the patient from my office to the emergency room to be evaluated and admitted for further antibiotic therapy. The patient is clearly noncompliant. He keeps smoking about a pack a day, despite severe vascular disease. PAST MEDICAL HISTORY 1. Severe peripheral vascular disease, 2. Esophageal ulcer, esophageal stenosis 3. Ulcerations of the right foot 4. Myocardial infarction, 5. History of seizures, 6. Diabetes mellitus, poorly controlled 7. Severe noncompliance PAST SURGICAL HISTORY 1. Right above-knee amputation 2. Colectomy, 3. Appendectomy, 4. Coronary artery bypass surgery four grafts 5. Tonsillectomy 6. Right inguinal hernia repair x2 7. Some sort of clavicle repair 8. Repeated angioplasties of the right leg prior to amputation. MEDICATIONS Multiple which the patient is not taking, can be found on the record. PHYSICAL EXAMINATION GENERAL: A 62-year-old male appearing older than his age. HEENT: Normocephalic. No trauma to the head. Pupils equally reactive. Extraocular muscles intact. NECK: Supple, bilateral carotid pulses and bilateral carotid bruits. A recent ultrasound in 2016 revealed about 50% bilateral carotid stenosis and we are going repeat this one here. CHEST : Bilateral breath sounds decreased over both lung english. The patient has severe COPD and pulmonary cachexia. HEART: Regular rhythm. Scar from previous surgery noted. ABDOMEN: Patulous, soft. Active bowel sounds. Scars noted. EXTREMITIES: Right AKA healed nicely. in the left side, the patient has a palpable femoral pulse and then weak dopplerable popliteal pulse. He has posterior tibial by Doppler and no dorsalis pedis. The left foot is involved with rubor which extends over the dorsum of the left foot and down to the calf with shallow ulcers anteriorly and laterally. This is clearly infected. Neurologic function left foot is okay. The patient will be now admitted to the hospital for further care. ASSESSMENT AND PLAN The patient has severe peripheral vascular disease which is not amenable to any open reconstruction, however, he would be a candidate for possible endovascular balloon angioplasty into the distal trifurcation and popliteal artery. However, as long as the shallow ulcers are healing I would not proceed with this because this might also worsen the situation considering that if a piece flushes off, he may end up with embolization and ischemia of the leg requiring amputation. So risk/benefit ratio as long as the ulcers are healing and cellulitis is treated I would not subject the patient to any endovascular procedure. Thank you much for the referral. Rudy VAZQUEZ /3:36 PM /4:41 PM
[2017-06-05] MEDS: FONDAPARINUX SODIUM 2.5 MG/0.5 ML SYRINGE SQ SCH (17:39)
[2017-06-05] MEDS: ATORVASTATIN 80 MG TAB PO SCH (21:32)
[2017-06-05] MEDS: NORTRIPTYLINE HCL 25 MG CAP PO SCH (21:33)
[2017-06-06 00:27] VITALS: BP 98/56; PULSE 94; RESP 18; TEMP 98.1; O2SAT 92
[2017-06-06] MEDS: oxyCODONE/ACETAMINOPHEN 10 MG/325 MG TAB PO PRN ×3 (01:35→13:56)
[2017-06-06 05:33] VITALS: BP 95/51; PULSE 88; RESP 18; TEMP 97.3; O2SAT 92
[2017-06-06] MEDS: LEVOTHYROXINE SODIUM 100 MCG TAB PO SCH (05:53)
[2017-06-06 07:40] VITALS: BP 112/64; PULSE 93; RESP 16; TEMP 97.4; O2SAT 94
[2017-06-06] MEDS: REMOVE OLD PATCH T-DERMAL SCH (08:15)
[2017-06-06] MEDS: NICOTINE 14 MG/24 HR PATCH T-DERMAL SCH (08:15)
[2017-06-06] MEDS: ASPIRIN EC 81 MG TABEC PO SCH (08:16)
[2017-06-06] MEDS: CLOPIDOGREL 75 MG TAB PO SCH (08:16)
[2017-06-06] MEDS: CARVEDILOL 6.25 MG TAB PO SCH (08:16)
[2017-06-06] MEDS: amLODIPine BESYLATE 5 MG TAB PO SCH (08:16)
[2017-06-06] MEDS: CYANOCOBALAMIN 1,000 MCG TAB PO SCH (08:16)
[2017-06-06] MEDS: guaiFENesin E.R. 600 MG TAB PO SCH (08:16)
[2017-06-06] MEDS: HYDROCHLOROTHIAZIDE 25 MG TAB PO SCH (08:16)
[2017-06-06] MEDS: LISINOPRIL 10 MG TAB PO SCH (08:17)
[2017-06-06] MEDS: SODIUM CHLORIDE 0.9% FLUSH 10 ML FLUSH IV FLUSH SCH (08:17)
[2017-06-06] MEDS: INSULIN ASPART SUPPLEMENTAL SCALE SQ SCH ×2 (08:17→12:00)
[2017-06-06] MEDS: PREGABALIN 100 MG CAP PO SCH ×2 (08:17→13:04)
[2017-06-06] MEDS: INSULIN DETEMIR 100 UNITS/ML VIAL SQ SCH (08:17)
[2017-06-06] MEDS: DOCUSATE SODIUM 50 MG/SENNA 8.6 MG TAB PO SCH (08:17)
[2017-06-06] MEDS: PANTOPRAZOLE SOD 20 MG DELAYED RELEASE TAB PO SCH (08:17)
[2017-06-06 08:47] VITALS: O2SAT 97
--- NOTE | 2017-06-06 09:35 | PD.WCN.NOT ---
Wound Consult Description: Received consult from Doctor Valero for wound management of Leg wounds Communicated with: PARKER Clinton and Doctor Coyle for orders Recommendation: Please cleanse diffuse wounds to L lower extremity with wound cleanser and normal saline and pat dry. Apply Optifoam AG non adhesive and secure with rolled gauze and tape or stockinette. Change dressing every 3 days or PRN. Additional Information: Late entry from 06/05/2017 at 1415: Patient seen on [facility] for evaluation of wound management of Leg wounds. Patient is noted with L leg open to air. Small, diffuse,scattered, draining ulcers are assessed to L leg. Wounds appear to be resolving,two ulcers are noted with dry scabs. Largest wound measures ~1cm x ~ 0.5cm x ~<0.1cm. Wound drainage from small partial thickness ulcerations is moderate and sero-sanguinous without odor. Cleansed open wounds with normal saline and pat dry. Spoke with Patient regarding wound origin, patient states, "They start out like dry blisters and then open up and look like holes in my leg." Slight erythema is assessed to periwound.Applied Optifoam AG non adhesive over draining wounds and secured with rolled gauze and tape. Christine Malcolm [facility] Jun 06, 2017 09:35
[2017-06-06 11:52] VITALS: BP 104/61; PULSE 82; RESP 18; TEMP 97.2; O2SAT 98
--- NOTE | 2017-06-06 12:09 | PD.ID.CON ---
History of Present Illness Service ID Consult Requested By Dr Jade Reason for Consult cellulitis LLE Primary Care Physician Ronald Millan , R3 MD Alonso Diagnoses: History of Present Illness 62 yo male vasculopathic, with h./o CAD, sp CABG x4 10 yrs ago sp ischemic bowel resection and R AKA 2/2 PVD complications cont to smoke presented with persistent left lower extremity edema, pain and claudication, and increasing redness for the past 1.5 weeks. Patient states he was discharged from the hospital [birth year] after being treated for cellulitis with IV antibiotics with a prescription for Augmentin. States upon finishing the Augmentin, he noticed gradually increasing/worsening leg symptoms. He has associated left lower extremity ulcerations been healing for the past 3 months. He followed up with his vascular surgeon, Dr. Balderas who diagnosed him with severe PVD not amenable to any open reconstruction, however, he would be a candidate for possible endovascular balloon angioplasty into the distal trifurcation and popliteal artery. Pt denies any fevers, nigsweats or chills His WBC is normal Patient has had 2 ultrasounds over the past month in the left leg that have both been negative for DVT. Review of Systems Except as stated in HPI: all other systems reviewed are Neg Past Family Social History Allergies: Coded Allergies: morphine (Verified Adverse Reaction, Severe, STS HE BECOMES VIOLENT., ) Uncoded Allergies: UNFRACTIONATED HEPARIN (Adverse Reaction, Severe, PT UNSURE OF REACTION, ) patient states he's not allergic, " I just bleed easily", explained to patient drug's purpose. Past Medical History 1. Severe peripheral vascular disease, 2. Esophageal ulcer, esophageal stenosis 3. Ulcerations of the right foot 4. Myocardial infarction, 5. History of seizures, 6. Diabetes mellitus, poorly controlled 7. Severe noncompliance Past Surgical History 1. Right above-knee amputation 2. Colectomy, 3. Appendectomy, 4. Coronary artery bypass surgery four grafts 5. Tonsillectomy 6. Right inguinal hernia repair x2 7. Some sort of clavicle repair 8. Repeated angioplasties of the right leg prior to amputation. Active Ordered Medications Medications where reviewed in EMR Antibiotics Include: none Family History high blood pressure Social History Tobacco abuse still smoking daily Denies any illicit drug use denies any alcohol use Physical Exam Vital Signs Vital Signs Date Time Temp Pulse Resp B/P (MAP) Pulse Ox O2 Delivery O2 Flow Rate FiO2 06/06/17 11:52 97.2 82 18 104/61 (75) 98 06/06/17 08:47 97 21 06/06/17 07:40 97.4 93 16 112/64 (80) 94 06/06/17 05:33 97.3 88 18 95/51 (66) 92 06/06/17 00:27 98.1 94 18 98/56 (70) 92 06/05/17 22:36 96 Nasal Cannula 3.00 06/05/17 20:51 97.5 95 18 101/58 (72) 93 06/05/17 16:00 98.4 87 16 93/52 (66) 96 06/05/17 13:02 94 Room Air Physical Exam CONSTITUTIONAL/GENERAL: This is an adequately nourished patient, in no apparent distress. TUBES/LINES/DRAINS: SKIN: No jaundice, rashes, or lesions. Skin temperature appropriate. Not diaphoretic. HEAD: Atraumatic. Normocephalic. EYES: Pupils equal and round and reactive. Extraocular motions intact. No scleral icterus. No injection or drainage. Fundi not examined. ENT: Decreased hearing (baseline) Oral mucosae without visible erythema, exudates, masses, or lesions. Poor dentition NECK: Trachea midline. Supple, nontender. CARDIOVASCULAR: Regular rate and rhythm without murmurs, gallops, or rubs. No JVD. Peripheral pulses symmetric. RESPIRATORY/CHEST: Symmetric, unlabored respirations. Clear to auscultation. Breath sounds equal bilaterally. No wheezes, rales, or rhonchi. GASTROINTESTINAL: Abdomen soft, non-tender, nondistended. No hepato-splenomegaly , or palpable masses. No guarding. Bowel sounds present. MUSCULOSKELETAL: Upper extremities without clubbing, cyanosis, or edema. R AKA, with prosthesis in place LLE is with tight prominent edema, prominent dermapathy, severe loss of skin appendages and shallow non infected appearing ulcerations with serous drainga His foot has dependednt rubor characteristic for advanced PVD and is warm to touch Pedal pulses are nnot palpable LYMPHATICS: No palpable cervical or supraclavicular adenopathy. No inguinal lymphadenopathy NEUROLOGICAL: Awake and alert. Motor and sensory grossly within normal limits. Follows commands. Clear speech. Moves all extremities. PSYCHIATRIC: No obvious anxiety/depression. no apparent hallucinations or other psychotic thought process. Laboratory Date/Time Source Procedure Growth Status 06/04/17 12:20 Blood Peripheral Aerobic Blood Culture - Preliminary NO GROWTH IN 2 DAYS Resulted 06/04/17 12:20 Blood Peripheral Anaerobic Blood Culture - Preliminary NO GROWTH IN 2 DAYS Resulted Result Diagram: 06/05/17 0459 06/05/17 0850 Imaging Last Impressions Chest X-Ray 06/04/17 0000 Signed Impressions: Service Date/Time: Sunday, June 04, 2017 16:01 - CONCLUSION: Interstitial opacities with lower lung zone predominance bilaterally are new since the prior study. The appearance and distribution favors pulmonary edema as etiology. There are likely trace bilateral pleural effusions. Ramon Peters MD Assessment and Plan Assessment and Plan LLE cellulitis in the settings of advanced PVD s/p treatmetn- resolved Vasculopthic ulcerations , edema - all from advanced PVD No e/o active infection of the ulcerations No fever, or leukocytosis - Observe of abx, looks likwl his symptoms are entirely vascular - will sign off, reconsult if needed Discussed Condition With Leonides Irene Alexandra A. MD Jun 06, 2017 12:09
[2017-06-06] MEDS ORDERED: HYDR-3366 PO (14:42)
--- NOTE | 2017-06-06 14:55 | HHI.PR ---
Subjective Remarks occasional pain in the calf area but up and ambulating Objective Vitals Vital Signs Date Time Temp Pulse Resp B/P (MAP) Pulse Ox O2 Delivery O2 Flow Rate FiO2 06/06/17 11:52 97.2 82 18 104/61 (75) 98 06/06/17 08:47 97 21 06/06/17 08:06 Room Air 06/06/17 07:40 97.4 93 16 112/64 (80) 94 06/06/17 05:33 97.3 88 18 95/51 (66) 92 06/06/17 00:27 98.1 94 18 98/56 (70) 92 06/05/17 22:36 96 Nasal Cannula 3.00 06/05/17 20:51 97.5 95 18 101/58 (72) 93 06/05/17 16:00 98.4 87 16 93/52 (66) 96 I/O 06/05/17 06/05/17 06/05/17 06/06/17 06/06/17 06/06/17 07:00 15:00 23:00 07:00 15:00 23:00 Intake Total 220 ml 720 ml 480 ml Output Total 700 ml 625 ml Balance -480 ml -625 ml 720 ml 480 ml Intake Oral 120 ml 720 ml 480 ml IV Total 100 ml Output Urine Total 700 ml 625 ml # Voids 2 2 # Bowel Movements 1 1 Result Diagram: 06/05/17 0459 06/05/17 0850 Imaging Last Impressions Chest X-Ray 06/04/17 0000 Signed Impressions: Service Date/Time: Sunday, June 04, 2017 16:01 - CONCLUSION: Interstitial opacities with lower lung zone predominance bilaterally are new since the prior study. The appearance and distribution favors pulmonary edema as etiology. There are likely trace bilateral pleural effusions. Ramon Peters MD Objective Remarks awake and alert, oriented x 3, no acute distress anicteric lungs no rales or wheezes regular rhythm abdomen soft, nontender AKA-right mild erythema small dry superficial wound on the left dietz ambulated well with walker A/P Assessment and Plan 62 years old male Chronic Mild erythema/Rubor of the left lower extremity with superficial wound left dietz- swears completed antibiotic course of Augmentin as OP Left superficial wound- dietz area- dry. Started on vancomycin and Zosyn- will DC for now no fever no WBC elevation ID saw patient- no need for antibiotics wound care team consult- Abel adames daily- d/w staff to give patient supplieds will get a doppler to make sure no DVT Peripheral vascular occlusive disease peripheral arterial disease status post right [id number] amputation. VAscular surgery ff Diabetes mellitus poorly controlled continue Accu-Cheks before meals and at bedtime sliding scale coverage A1C pending. Increase levemer to 10 units Sq bid RENE- resolved S/P IVF. ff BMP Coronary artery disease history of CABG 4. continue meds Chronic pain continue on pain control Hypertension continue home medications Hyperlipidemia continue home medications Hypothyroidism check labs and continue home medications depression continue home medications and pain control on Arixtra PT ff- up and ambulating with walker CM DC planning- assistance with DC needs - home with OP ff up - wound care clinic Nela Coyle MD Jun 06, 2017 14:55
--- NOTE | 2017-06-06 15:55 | RADRPT ---
EXAM DATE/TIME: 06/06/2017 15:27 [facility] COMPARISON: US LEG LEFT VENOUS DOPPLER, May 11, 2017, 19:18. INDICATIONS : Left leg swelling. MEDICAL HISTORY : Peripheral vascular disease. Myocardial infarction. Hypercholesterolemia. Thyroid disease. Neuropa thy. Hypoglycemia. Seizures. Numbness. Coronary artery disease. Hyperlipidemia. HTN. GERD. Arthritis. Diabetes. Hydroceles. Depression. Anxiety. Tobacco use. Anticoagulant therapy. SURGICAL HISTORY : Tonsillectomy. Angioplasty. Appendectomy. CABG. L5-S1 fusions. Esophageal stricture. Exploratory lef t brachial plexis. Colectomy. Left shoulder blade surgery. Pin right leg knee to ankle. Right AKA. Bl ood transfusions. ENCOUNTER: Subsequent ACUITY: 1 day PAIN SCORE: 2/10 LOCATION: Left leg. TECHNIQUE: Venous ultrasound of the leg was performed from the inguinal ligament to the proximal calf. Real-sahra e, color Doppler and spectral tracing, compression and augmentation techniques were used. FINDINGS: There is normal compressibility of the deep venous system from the inguinal region to the proximal ca lf. No echogenic clot is seen in the lumen of the common femoral, femoral, popliteal, and posterior tibial veins. There is a normal response of the venous system to proximal and distal augmentation an d respiration. Prior saphenous vein harvest. Small anechoic cystic popliteal fossa collection withou t evidence for vascularity. This measures 2.2 x 1.9 x 0.7 cm. CONCLUSION: 1. No sonographic evidence for left extremity DVT. 2. Small left popliteal fossa Heard's cyst. Varun De Paz MD on June 06, 2017 at 15:51 Board Certified Radiologist. This report was verified electronically.
[2017-06-06 15:56] VITALS: BP 115/68; PULSE 86; RESP 18; TEMP 97.3; O2SAT 96
[2017-06-07] MEDS ORDERED: PHARMACY ORDERED LAB ONE (14:45)
--- NOTE | 2017-06-10 14:14 | PQ ---
Physician Query Response Document PATIENT: FAVIOLA AWAN : 1955 ADMIT DATE: 06/04/2017 2:01 PM DISCH DATE: 06/06/2017 5:46 PM RESPONDING PROVIDER #: Mary QUERY TEXT: Sepsis Query Based on your medical judgement, can you further clarify the folowiin. Sepsis (SIRS due to an infection) 2. Sepsis with Organ Dysfunction 3. A localized Infection only 4. Another condition - please specify 5. Unable to determine - please explain. Depending on your selection above, please indicate one of the below if applicable: - Sepsis was present on Admission - Sepsis developed after admission The patient's Clinical Indicators include: Admitting diagnosis : Cellulitis Failed OP treatment Vital signs: HR 104 Resp rate 28 Lactic Acid 2.2 Saturation 88% on 3 liters O2 C-Reative protein 12.20 Query created by: Alejandrina Dang on 06/05/2017 10:37 AM RESPONSE TEXT: Vasculopathic changes LLE. No evidence of infection Electronically signed by: Nela Coyle MD 06/10/2017 2:10 PM
== END 2017-06-06 17:46 | disposition home or self-care (01) | DRG 300 ==
LOC: NEPD 11:27 → NEDA 14:01 → N05B 15:23
PROVIDERS: ADMIT Internal Medicine; ATTEND Internal Medicine
DX: E11.51 Type 2 diabetes mellitus with diabetic peripheral angiopathy without gangrene (principal); L97.929 Non-pressure chronic ulcer of unspecified part of left lower leg with unspecified severity; N17.9 Acute kidney failure, unspecified; E11.42 Type 2 diabetes mellitus with diabetic polyneuropathy; E11.622 Type 2 diabetes mellitus with other skin ulcer; E11.65 Type 2 diabetes mellitus with hyperglycemia; E87.5 Hyperkalemia; D64.9 Anemia, unspecified; E03.9 Hypothyroidism, unspecified; F17.210 Nicotine dependence, cigarettes, uncomplicated; E78.5 Hyperlipidemia, unspecified; E86.0 Dehydration; F32.9 Major depressive disorder, single episode, unspecified; F41.9 Anxiety disorder, unspecified; G89.29 Other chronic pain; H91.90 Unspecified hearing loss, unspecified ear; K21.9 Gastro-esophageal reflux disease without esophagitis; I10 Essential (primary) hypertension; M19.90 Unspecified osteoarthritis, unspecified site; I25.10 Atherosclerotic heart disease of native coronary artery without angina pectoris; I25.2 Old myocardial infarction; Z89.511 Acquired absence of right leg below knee; Z89.611 Acquired absence of right leg above knee; Z91.19 Patient's noncompliance with other medical treatment and regimen; Z95.1 Presence of aortocoronary bypass graft; Z79.4 Long term (current) use of insulin
CPT/HCPCS: 71010; 80053; 82550; 82947; 82948; 83036; 83605; 83735; 84100; 84439; 84443; 84484; 85025; 85610; 85652; 85730; 86140; 87040; 93971; 94150; 99285; J1652; J1815; J1940; J2543; J2920; J3370; J7030; J7050

== ENCOUNTER 2017-06-20 14:25 | Inpatient (IN) | payer OTHER, MEDICAID ==
[2017-06-20] VITALS (13 sets, daily range): BP systolic 115–160; BP diastolic 61–76; PULSE 47–115; RESP 16–33; TEMP 97.8–97.9; O2SAT 92–100
[~2017-06-20] VITALS: Ht 182.9 cm; Wt 60.9 kg
[~2017-06-20 14:25] MED LIST changes: -AUGM875T3 PO
--- NOTE | 2017-06-20 14:46 | PD ---
HPI Chief Complaint: Respiratory Distress Time Seen by Provider: 14:42 Travel History International Travel<30 days: No Contact w/Intl Traveler<30days: No Traveled to known affect area: No History of Present Illness HPI 62-year-old male with PMH of DM, lifelong smoker presents to the ED via EMS for evaluation of respiratory distress. Per EMS the patient's O2 sats in the 70s on arrival. He received 250 of Solu-Medrol and 2 albuterol treatments en route. On my evaluation the patient is pale, unable to speak, gasping for air, O2 sats 97% on 5 L. CPAP was applied. O2 sats improved to 100%. Patient denies recent history of fever, chills. He states his cough is nonproductive. He is unable to provide much other history. PFSH Past Medical History Hx Anticoagulant Therapy: Yes Arthritis: Yes Asthma: No Autoimmune Disease: No Blood Disorders: No Anxiety: Yes Depression: Yes Heart Rhythm Problems: No Cancer: No Cardiovascular Problems: Yes High Cholesterol: Yes Chemotherapy: No Chest Pain: No Congestive Heart Failure: No COPD: No Cerebrovascular Accident: No Coronary Artery Disease: Yes Diabetes: Yes Patient Takes Glucophage: No Diminished Hearing: Yes ([place]) Endocrine: Yes Gastrointestinal Disorders: Yes (ESOPHAGEAL ULCER? stricture, stretch) GERD: Yes Glaucoma: No Genitourinary: No Headaches: No Hepatitis: No Hiatal Hernia: No Hypertension: Yes Immune Disorder: No Implanted Vascular Access Dvce: Yes Kidney Stones: No Musculoskeletal: Yes (cervical and lumbar spine pt states he has bulging disc R AKA) Neurologic: Yes (NEUROPATHY pvd) Psychiatric: No Reproductive: No Respiratory: No Immunizations Current: No Migraines: No Myocardial Infarction: Yes Radiation Therapy: No Renal Failure: No Seizures: Yes Sickle Cell Disease: No Sleep Apnea: No Thyroid Disease: Yes Ulcer: No PNEUMOCCOCAL Vaccine (Year): 2 Past Surgical History Abdominal Surgery: Yes (EXP. LEFT BRACHIAL PLEXIS,APPEND., COLECTOMY) AICD: No Appendectomy: Yes Arteriovenous Shunt: No Body Medical Devices: Right leg amputaion wears prosthesis Cardiac Surgery: Yes (CABGX4) Cholecystectomy: No Coronary Artery Bypass Graft: Yes (2004) Ear Surgery: No Endocrine Surgery: No Eye Surgery: No Genitourinary Surgery: No Gynecologic Surgery: No Insulin Pump: No Joint Replacement: No Neurologic Surgery: No Oral Surgery: No Pacemaker: No Thoracic Surgery: Yes (L5, S1, fusions) Tonsillectomy: Yes Other Surgery: Yes (2 HYDROCELE) Social History Alcohol Use: No Tobacco Use: Yes (6-7 CIGARETTES/DAY) Substance Use: No Allergies-Medications (Allergen,Severity, Reaction): Coded Allergies: morphine (Verified Adverse Reaction, Severe, STS HE BECOMES VIOLENT., 06/20) Uncoded Allergies: UNFRACTIONATED HEPARIN (Adverse Reaction, Severe, PT UNSURE OF REACTION, ) patient states he's not allergic, " I just bleed easily", explained to patient drug's purpose. Reported Meds & Prescriptions Reported Meds & Active Scripts Active [place] (Hydrocodone-Acetaminophen) 10-325 Mg Tab 1 Tab PO Q6HR 7 Days Levemir Flextouch Pen Inj (Insulin Detemir) 300 unit/3 ML Pen 1 Units SQ BID Levemir Inj (Insulin Detemir) 1,000 unit/ 10 ML Vial 8 Units SQ BID 30 Days Do not mix with any other Insulin. Novolog Inj (Insulin Aspart) 1,000 Unit/10 Ml Vial 1-9 Units SQ ACHS sugars less than 70,(0)units; sugars 150-199,(1) unit; sugars 200-249,(3) units; sugars 250-299,(5) units; sugars 300-349,(7) units; sugars greater than 349,(9) units. inform PCP if < 70 or > 400. Hydrochlorothiazide 25 Mg Tab 25 Mg PO DAILY Lisinopril 10 Mg Tab 10 Mg PO Q12HR Atorvastatin (Atorvastatin Calcium) 80 Mg Tab 80 Mg PO HS 30 Days Prilosec (Omeprazole Magnesium) 20 Mg Tab 1 Tab PO BID Lyrica (Pregabalin) 100 Mg Cap 100 Mg PO TID Adult Aspirin EC Low Strength (Aspirin) 81 Mg Tabec 81 Mg PO DAILY 30 Days Norvasc (Amlodipine Besylate) 5 Mg Tab 5 Mg PO DAILY Nortriptyline (Nortriptyline HCl) 75 Mg Cap 75 Mg PO HS Plavix (Clopidogrel Bisulfate) 75 Mg Tab 75 Mg PO DAILY Synthroid (Levothyroxine Sodium) 100 Mcg Tab 100 Mcg PO DAILY@06 Carvedilol 6.25 Mg Tab 6.25 Mg PO BID Reported B12 (Cyanocobalamin) 1,000 Mcg Tab 1,000 Mcg PO DAILY Review of Systems ROS Limitations: Other: (resp distress) Except as stated in HPI: all other systems reviewed are Neg Physical Exam Exam Limitations: Clinical Condition Narrative GENERAL: Thin, ashen, chronically ill-appearing white male, head nodding, gasping for air, unable to speak more than a word or 2 at a time. SKIN: Focused skin assessment warm/dry. HEAD: Normocephalic. EYES: No scleral icterus. No injection or drainage. NECK: Supple, trachea midline. No JVD or lymphadenopathy. CARDIOVASCULAR: Regular rate and rhythm without murmurs, gallops, or rubs. RESPIRATORY: Breath sounds coarse in the lower lobes bilaterally. Mild to moderate and expiratory wheezing noted. Positive accessory muscle use. GASTROINTESTINAL: Abdomen soft, non-tender, nondistended. MUSCULOSKELETAL: No cyanosis, or edema. BACK: Nontender without obvious deformity. No CVA tenderness. Data Data Last Documented VS Vital Signs Date Time Temp Pulse Resp B/P (MAP) Pulse Ox O2 Delivery O2 Flow Rate FiO2 06/20/17 15:14 100 BiPAP 15.00 100 06/20/17 14:40 110 18 Orders Orders Resp Bipap / Cpap Non Invas Vt (06/20/17 ) Complete Blood Count With Diff (06/20/17 14:46) Comprehensive Metabolic Panel (06/20/17 14:46) B-Type Natriuretic Peptide (06/20/17 14:46) Act Partial Throm Time (Ptt) (06/20/17 14:46) Prothrombin Time / Inr (Pt) (06/20/17 14:46) Arterial Blood Gas (Abg) (06/20/17 14:46) Urinalysis - C+S If Indicated (06/20/17 14:46) Iv Access Insert/Monitor (06/20/17 14:46) Ecg Monitoring (06/20/17 14:46) Oximetry (06/20/17 14:46) Oxygen Administration (06/20/17 14:46) Chest, Single Ap (06/20/17 14:46) Sodium Chloride 0.9% Flush (Ns Flush) (06/20/17 15:00) Albuterol-Ipratropium Neb (Duoneb Neb) (06/20/17 15:00) Furosemide Inj (Lasix Inj) (06/20/17 16:30) Ceftriaxone Inj (Rocephin Inj) (06/20/17 17:15) Azithromycin Inj (Zithromax Inj) (06/20/17 17:15) Admit Order (Ed Use Only) (06/20/17 17:27) Labs Laboratory Tests Test 06/20/17 14:40 06/20/17 15:32 White Blood Count 18.4 TH/MM3 Red Blood Count 3.82 MIL/MM3 Hemoglobin 10.6 GM/DL Hematocrit 33.7 % Mean Corpuscular Volume 88.3 FL Mean Corpuscular Hemoglobin 27.8 PG Mean Corpuscular Hemoglobin Concent 31.5 % Red Cell Distribution Width 16.2 % Platelet Count 404 TH/MM3 Mean Platelet Volume 9.7 FL Neutrophils (%) (Auto) 69.1 % Lymphocytes (%) (Auto) 18.2 % Monocytes (%) (Auto) 5.4 % Eosinophils (%) (Auto) 5.8 % Basophils (%) (Auto) 1.5 % Neutrophils # (Auto) 12.8 TH/MM3 Lymphocytes # (Auto) 3.3 TH/MM3 Monocytes # (Auto) 1.0 TH/MM3 Eosinophils # (Auto) 1.1 TH/MM3 Basophils # (Auto) 0.3 TH/MM3 CBC Comment DIFF FINAL Differential Comment Prothrombin Time 10.3 SEC Prothromb Time International Ratio 1.0 RATIO Activated Partial Thromboplast Time 24.9 SEC Blood Urea Nitrogen 16 MG/DL Creatinine 0.90 MG/DL Random Glucose 125 MG/DL Total Protein 6.8 GM/DL Albumin 3.0 GM/DL Calcium Level 7.6 MG/DL Alkaline Phosphatase 202 U/L Aspartate Amino Transf (AST/SGOT) 38 U/L Alanine Aminotransferase (ALT/SGPT) 40 U/L Total Bilirubin 0.5 MG/DL Sodium Level 137 MEQ/L Potassium Level 4.3 MEQ/L Chloride Level 108 MEQ/L Carbon Dioxide Level 24.4 MEQ/L Anion Gap 5 MEQ/L Estimat Glomerular Filtration Rate 86 ML/MIN B-Type Natriuretic Peptide 706 PG/ML Blood Gas Patient Temperature 37.0 Blood Gas HCO3 21 mmol/L Blood Gas Base Excess -3.8 mmol/L Blood Gas Oxygen Saturation 98 % Arterial Blood pH 7.38 Arterial Blood Partial Pressure CO2 35 mmHg Arterial Blood Partial Pressure O2 275 mmHG Arterial Blood Oxygen Content 13.7 Vol % Arterial Blood Carboxyhemoglobin 1.7 % Arterial Blood Methemoglobin 0.5 % Blood Gas Hemoglobin 9.5 G/DL MDM Medical Decision Making Medical Screen Exam Complete: Yes Emergency Medical Condition: Yes Differential Diagnosis COPD versus CHF versus pneumonia versus other Narrative Course 62-year-old male with PMH of DM, lifelong smoker presents to the ED via EMS for evaluation of respiratory distress. Per EMS the patient's O2 sats were in the 70s on arrival. He received 250 of Solu-Medrol and 2 albuterol treatments en route. On my evaluation the patient is pale, unable to speak, gasping for air, O2 sats 97% on 5 L. Patient denies recent history of fever, chills. He states his cough is nonproductive. He is unable to provide much other history. Pulse 1:15, respiratory rate 30, O2 sats 97% on 4 L nasal cannula, BP 160/76 on arrival. CPAP was applied. O2 sats improved to 100%. Breath sounds coarse in the bilateral lung bases, end expiratory wheezing as well. Patient was administered duo nebs 2. EKG: rate 89, sinus rhythm. LA interval 180, QRS 138, QTC 457 ms. Normal axis. LBBB. No acute ST changes. Reviewed by Dr. Frank ABG: PH 7.38, HCO3 21, CO2 35 CBC: The CBC 18.4. Hemoglobin 10.6, chronic anemia per chart review. INR: 1.0. BUN: 16, creatinine 0.9. Calcium 7.6. BNP 706 Patient was administered 40 mg Lasix, IV Rocephin and azithromycin. Call placed to the archeologist. I spoke with Dr. Evangelista who agrees to accept the patient on behalf of Dr. Horvath. Please see ICU notes for disposition. Rupa Quintanilla Jun 20, 2017 14:46
[2017-06-20] MEDS ORDERED: SODIUM CHLORIDE 0.9% FLUSH 10 ML FLUSH IVF PRN (15:00)
[2017-06-20] MEDS: RESP: ALBUTEROL 2.5 MG/IPRATROPIUM 0.5 MG NEB (SCH) INH ×3 (15:24→20:34)
--- NOTE | 2017-06-20 15:31 | RADRPT ---
EXAM DATE/TIME: 06/20/2017 14:51 [facility] COMPARISON: CHEST SINGLE AP, June 04, 2017, 16:01. INDICATIONS : Short of breath. MEDICAL HISTORY : Peripheral vascular disease. Myocardial infarction. Hypercholesterolemia. Thyroid disease. Neurop athy. Hypoglycemia. Seizures. Numbness. Coronary artery disease. Hyperlipidemia. HTN. GERD. Arthritis . Diabetes. Hydroceles. Depression. Anxiety. Tobacco use. Anticoagulant therapy. SURGICAL HISTORY : Tonsillectomy. Appendectomy. Thyroid disease. Neuropathy. Hypoglycemia. Seizures. Numbness. Coronary artery disease. Hyperlipidemia. HTN. GERD. Arthritis. Diabetes. Hydroceles. Depression. Anxiety. Tob acco use. Anticoagulant therapy. Angioplasty. ENCOUNTER: Subsequent ACUITY: 1 day PAIN SCORE: 0/10 LOCATION: Bilateral chest FINDINGS: Stable median sternotomy wires. Small bilateral pleural effusions and associated airspace disease at the lung bases. Mild diffuse interstitial prominence with indistinct central vascularity. Cardiac herson houette is within normal limits. Remainder of the exam is unchanged. CONCLUSION: 1. Small bilateral pleural effusions with associated lower lobe airspace disease, presumably compress elizabet atelectasis. 2. Diffuse interstitial prominence consistent with positive fluid balance. Varun De Paz MD on June 20, 2017 at 15:28 Board Certified Radiologist. This report was verified electronically.
[2017-06-20 15:35] LABS: AUTOMATED NEUTROPHIL # 12.8 TH/MM3 (1.8-7.7); BASOPHIL # 0.3 TH/MM3 (0-0.2); BASOPHIL % 1.5 % (0.0-2.0); EOSINOPHIL # 1.1 TH/MM3 (0-0.4); EOSINOPHIL % 5.8 % (0.0-4.0); HEMATOCRIT 33.7 % (39.0-51.0); HEMO FLAGS DIFF FINAL; LYMPH % 18.2 % (9.0-44.0); LYMPHOCYTE # 3.3 TH/MM3 (1.0-4.8); MEAN CELL VOLUME 88.3 FL (80.0-100.0); MEAN CORPUSCULAR HEMOGLOBIN 27.8 PG (27.0-34.0); MEAN CORPUSCULAR HGB CONC 31.5 % (32.0-36.0); MONO % 5.4 % (0.0-8.0); NEUT % 69.1 % (16.0-70.0); PLATELET COUNT 404 TH/MM3 (150-450); RED BLOOD COUNT 3.82 MIL/MM3 (4.50-5.90); RED CELL DISTRIBUTION WIDTH 16.2 % (11.6-17.2); WHITE BLOOD COUNT 18.4 TH/MM3 (4.0-11.0)
[2017-06-20 15:39] LABS: APTT (PATIENT) 24.9 SEC (24.3-30.1); PROTHROMBIN TIME - PATIENT 10.3 SEC (9.8-11.6)
[2017-06-20 15:43] LABS: BLOOD GAS BASE EXCESS -3.8 mmol/L (-2-2); BLOOD GAS CARBOXYHEMOGLOBIN 1.7 % (0-4); BLOOD GAS HCO3 21 mmol/L (22-26); BLOOD GAS METHEMOGLOBIN 0.5 % (0-2); BLOOD GAS O2 HGB SATURATION 98 % (90-100); BLOOD GAS OXYGEN CONTENT 13.7 Vol % (12.0-20.0); BLOOD GAS PCO2 35 mmHg (38-42); BLOOD GAS PO2 275 mmHG (61-120); BLOOD GAS TOTAL HGB 9.5 G/DL (12.0-16.0)
[2017-06-20 15:56] LABS: ANION GAP 5 MEQ/L (5-15); AST (GOT) 38 U/L (15-37); BICARBONATE 24.4 MEQ/L (21.0-32.0); BLOOD UREA NITROGEN 16 MG/DL (7-18); CHLORIDE 108 MEQ/L (98-107); GLOMERULAR FILTRATION RATE 86 ML/MIN (>89); POTASSIUM 4.3 MEQ/L (3.5-5.1); SODIUM (NA) 137 MEQ/L (136-145)
[2017-06-20 15:59] LABS: ALKALINE PHOSPHATASE 202 U/L (45-117); ALT (GPT) 40 U/L (12-78); TOTAL BILIRUBIN ADULT 0.5 MG/DL (0.2-1.0)
[2017-06-20] MEDS ORDERED: FUROSEMIDE 40 MG/4 ML VIAL IV PUSH ONE (16:30)
[2017-06-20] MEDS ORDERED: AZITHROMYCIN INJ 500 MG in SODIUM CHLOR 0.9% 250 ML INJ 250 ML IV ONE (17:15)
[2017-06-20] MEDS ORDERED: cefTRIAXone INJ 1,000 MG in SODIUM CHLORIDE 0.9% INJ 100 ML IV ONE (17:15)
--- NOTE | 2017-06-20 17:24 | PD ---
Physical Exam Date Seen by Provider: Jun 20, 2017 Time Seen by Provider: 15:30 Narrative I, Dr. Buckley, have reviewed the advance practice practitioner's documentation and am in agreement, met with the patient face to face, made the diagnosis, and the medical decision making was done by me. *My assessment and Findings: Patient seen and evaluated with PA, please see PA note for further details. Here with worsening shortness of breath, smoking history, wheezing bilaterally. Notable respiratory distress at rest. Placed on BiPAP due to respiratory distress with improvement symptoms. Patient was given steroids and then nebulizers in the ER with improvement symptoms. EKG shows normal sinus rhythm at a rate of 90 bpm with a left bundle branch block pattern. Laboratory Tests Test 06/20/17 14:40 06/20/17 15:32 White Blood Count 18.4 TH/MM3 (4.0-11.0) Red Blood Count 3.82 MIL/MM3 (4.50-5.90) Hemoglobin 10.6 GM/DL (13.0-17.0) Hematocrit 33.7 % (39.0-51.0) Mean Corpuscular Hemoglobin Concent 31.5 % (32.0-36.0) Eosinophils (%) (Auto) 5.8 % (0.0-4.0) Neutrophils # (Auto) 12.8 TH/MM3 (1.8-7.7) Monocytes # (Auto) 1.0 TH/MM3 (0-0.9) Eosinophils # (Auto) 1.1 TH/MM3 (0-0.4) Basophils # (Auto) 0.3 TH/MM3 (0-0.2) Random Glucose 125 MG/DL (74-106) Albumin 3.0 GM/DL (3.4-5.0) Calcium Level 7.6 MG/DL (8.5-10.1) Alkaline Phosphatase 202 U/L (45-117) Aspartate Amino Transf (AST/SGOT) 38 U/L (15-37) Chloride Level 108 MEQ/L (98-107) Estimat Glomerular Filtration Rate 86 ML/MIN (>89) B-Type Natriuretic Peptide 706 PG/ML (0-100) Blood Gas HCO3 21 mmol/L (22-26) Blood Gas Base Excess -3.8 mmol/L (-2-2) Arterial Blood Partial Pressure CO2 35 mmHg (38-42) Arterial Blood Partial Pressure O2 275 mmHG (61-120) Blood Gas Hemoglobin 9.5 G/DL (12.0-16.0) Last 24 hours Impressions Chest X-Ray 06/20/17 1446 Signed Impressions: Service Date/Time: Tuesday, June 20, 2017 14:51 - CONCLUSION: 1. Small bilateral pleural effusions with associated lower lobe airspace disease, presumably compressive atelectasis. 2. Diffuse interstitial prominence consistent with positive fluid balance. Varun De Paz MD Chest x-ray shows bilateral pleural effusions and signs of pulmonary edema, BNP is elevated, and Lasix was given in the ER as well. At this point, plan would be to admit the patient for further treatment. Patient also has leukocytosis and considering the sudden worsening, there is concern of possible pneumonia and IV and spouse refuse discomfort as well. Case is discussed with hospitalist service for admission. Data Data Last Documented VS Vital Signs Date Time Temp Pulse Resp B/P (MAP) Pulse Ox O2 Delivery O2 Flow Rate FiO2 06/20/17 15:14 100 BiPAP 15.00 100 06/20/17 14:40 110 18 Orders Orders Resp Bipap / Cpap Non Invas Vt (06/20/17 ) Complete Blood Count With Diff (06/20/17 14:46) Comprehensive Metabolic Panel (06/20/17 14:46) B-Type Natriuretic Peptide (06/20/17 14:46) Act Partial Throm Time (Ptt) (06/20/17 14:46) Prothrombin Time / Inr (Pt) (06/20/17 14:46) Arterial Blood Gas (Abg) (06/20/17 14:46) Urinalysis - C+S If Indicated (06/20/17 14:46) Iv Access Insert/Monitor (06/20/17 14:46) Ecg Monitoring (06/20/17 14:46) Oximetry (06/20/17 14:46) Oxygen Administration (06/20/17 14:46) Chest, Single Ap (06/20/17 14:46) Sodium Chloride 0.9% Flush (Ns Flush) (06/20/17 15:00) Albuterol-Ipratropium Neb (Duoneb Neb) (06/20/17 15:00) Furosemide Inj (Lasix Inj) (06/20/17 16:30) Ceftriaxone Inj (Rocephin Inj) (06/20/17 17:15) Azithromycin Inj (Zithromax Inj) (06/20/17 17:15) Labs Laboratory Tests Test 06/20/17 14:40 06/20/17 15:32 White Blood Count 18.4 TH/MM3 Red Blood Count 3.82 MIL/MM3 Hemoglobin 10.6 GM/DL Hematocrit 33.7 % Mean Corpuscular Volume 88.3 FL Mean Corpuscular Hemoglobin 27.8 PG Mean Corpuscular Hemoglobin Concent 31.5 % Red Cell Distribution Width 16.2 % Platelet Count 404 TH/MM3 Mean Platelet Volume 9.7 FL Neutrophils (%) (Auto) 69.1 % Lymphocytes (%) (Auto) 18.2 % Monocytes (%) (Auto) 5.4 % Eosinophils (%) (Auto) 5.8 % Basophils (%) (Auto) 1.5 % Neutrophils # (Auto) 12.8 TH/MM3 Lymphocytes # (Auto) 3.3 TH/MM3 Monocytes # (Auto) 1.0 TH/MM3 Eosinophils # (Auto) 1.1 TH/MM3 Basophils # (Auto) 0.3 TH/MM3 CBC Comment DIFF FINAL Differential Comment Prothrombin Time 10.3 SEC Prothromb Time International Ratio 1.0 RATIO Activated Partial Thromboplast Time 24.9 SEC Blood Urea Nitrogen 16 MG/DL Creatinine 0.90 MG/DL Random Glucose 125 MG/DL Total Protein 6.8 GM/DL Albumin 3.0 GM/DL Calcium Level 7.6 MG/DL Alkaline Phosphatase 202 U/L Aspartate Amino Transf (AST/SGOT) 38 U/L Alanine Aminotransferase (ALT/SGPT) 40 U/L Total Bilirubin 0.5 MG/DL Sodium Level 137 MEQ/L Potassium Level 4.3 MEQ/L Chloride Level 108 MEQ/L Carbon Dioxide Level 24.4 MEQ/L Anion Gap 5 MEQ/L Estimat Glomerular Filtration Rate 86 ML/MIN B-Type Natriuretic Peptide 706 PG/ML Blood Gas Patient Temperature 37.0 Blood Gas HCO3 21 mmol/L Blood Gas Base Excess -3.8 mmol/L Blood Gas Oxygen Saturation 98 % Arterial Blood pH 7.38 Arterial Blood Partial Pressure CO2 35 mmHg Arterial Blood Partial Pressure O2 275 mmHG Arterial Blood Oxygen Content 13.7 Vol % Arterial Blood Carboxyhemoglobin 1.7 % Arterial Blood Methemoglobin 0.5 % Blood Gas Hemoglobin 9.5 G/DL [facility] Medical Record Reviewed: Yes Supervised Visit with ALISSON: Yes Diagnosis Primary Impression: Leukocytosis Additional Impression: Shortness of breath Admitting Information Admitting Physician Requests: it Yonis Buckley MD Jun 20, 2017 17:24
--- NOTE | 2017-06-20 18:56 | HHI.HP ---
HPI Service Critical Care Medicine Primary Care Physician Ro Voegl MD Admission Diagnosis acute respiratory distress Diagnosis: Travel History International Travel<30 Days: No Contact w/Intl Traveler <30 Da: No Traveled to Known Affected Are: No History of Present Illness 62-year-old male with PMH of DM, lifelong smoker presents via EMS for evaluation of respiratory distress. Per EMS the patient's O2 sats was in the 70s on arrival. He received 250 of Solu-Medrol and 2 albuterol treatments en route. Upon arrival to emergency department the CPAP was applied with some improvement. On my evaluation patient is in moderate respiratory distress on facemask nonrebreather. He states his cough is nonproductive. He is unable to provide much other history due to respiratory distress.. Review of Systems ROS Unable to obtain due to respiratory distress Past Family Social History Allergies: Coded Allergies: morphine (Verified Adverse Reaction, Severe, STS HE BECOMES VIOLENT., 06/20) Uncoded Allergies: UNFRACTIONATED HEPARIN (Adverse Reaction, Severe, PT UNSURE OF REACTION, ) patient states he's not allergic, " I just bleed easily", explained to patient drug's purpose. Past Medical History Diabetes mellitus Osteoarthritis Anxiety and depression Hypertension Hyperlipidemia Chronic pain Noncompliance History of esophageal ulcer questionable stricture and dilatation GERD Chronic cervical and lumbar spine issues Right [id number] amputation Chronic neuropathy chronic peripheral arterial disease and peripheral vascular disease still actively smoking History of DC History of seizures due to hypoglycemia Thyroid disorder Past Surgical History Exploration of left brachial plexus Appendectomy Colectomy Right [id number] leg amputation Coronary artery bypass graft 4 L5-S1 fusions Tonsillectomy Hydrocele surgery 2 Right leg surgery and pinning Clavicle surgery History of angioplasty Reported Medications Reported Meds & Active Scripts Active [place] (Hydrocodone-Acetaminophen) 10-325 Mg Tab 1 Tab PO Q6HR 7 Days Levemir Flextouch Pen Inj (Insulin Detemir) 300 unit/3 ML Pen 1 Units SQ BID Levemir Inj (Insulin Detemir) 1,000 unit/ 10 ML Vial 8 Units SQ BID 30 Days Do not mix with any other Insulin. Novolog Inj (Insulin Aspart) 1,000 Unit/10 Ml Vial 1-9 Units SQ ACHS sugars less than 70,(0)units; sugars 150-199,(1) unit; sugars 200-249,(3) units; sugars 250-299,(5) units; sugars 300-349,(7) units; sugars greater than 349,(9) units. inform PCP if < 70 or > 400. Hydrochlorothiazide 25 Mg Tab 25 Mg PO DAILY Lisinopril 10 Mg Tab 10 Mg PO Q12HR Atorvastatin (Atorvastatin Calcium) 80 Mg Tab 80 Mg PO HS 30 Days Prilosec (Omeprazole Magnesium) 20 Mg Tab 1 Tab PO BID Lyrica (Pregabalin) 100 Mg Cap 100 Mg PO TID Adult Aspirin EC Low Strength (Aspirin) 81 Mg Tabec 81 Mg PO DAILY 30 Days Norvasc (Amlodipine Besylate) 5 Mg Tab 5 Mg PO DAILY Nortriptyline (Nortriptyline HCl) 75 Mg Cap 75 Mg PO HS Plavix (Clopidogrel Bisulfate) 75 Mg Tab 75 Mg PO DAILY Synthroid (Levothyroxine Sodium) 100 Mcg Tab 100 Mcg PO DAILY@06 Carvedilol 6.25 Mg Tab 6.25 Mg PO BID Reported B12 (Cyanocobalamin) 1,000 Mcg Tab 1,000 Mcg PO DAILY Active Ordered Medications Current Medications Medications (Trade) Dose Ordered Sig/Nuzhat Route PRN Reason Start Time Stop Time Status Last Admin Dose Admin Sodium Chloride (NS Flush) 2 ml UNSCH PRN IVF FLUSH AFTER USING IV ACCESS 06/20/17 15:00 Amlodipine Besylate (Norvasc) 5 mg DAILY PO 06/21/17 09:00 UNV Aspirin (Ecotrin Ec) 81 mg DAILY PO 06/21/17 09:00 UNV Atorvastatin Calcium (Lipitor) 80 mg HS PO 06/20/17 21:00 UNV Carvedilol (Coreg) 6.25 mg BID PO 06/20/17 21:00 UNV Clopidogrel Bisulfate (Plavix) 75 mg DAILY PO 06/21/17 09:00 UNV Acetaminophen/ Hydrocodone Bitart ([place] 10-325 Mg) 1 tab Q6HR PO 06/21/17 00:00 UNV Levothyroxine Sodium (Synthroid) 100 mcg DAILY@06 PO 06/21/17 06:00 UNV Nortriptyline HCl (Pamelor) 75 mg HS PO 06/20/17 21:00 UNV Pregabalin (Lyrica) 100 mg TID PO 06/21/17 09:00 UNV Non-Formulary Medication 1,000 mcg DAILY PO 06/21/17 09:00 UNV Non-Formulary Medication 1 tab BID PO 06/20/17 21:00 UNV Sodium Chloride (NS Flush) 2 ml UNSCH PRN IV FLUSH FLUSH AFTER USING IV ACCESS 06/20/17 19:00 UNV Sodium Chloride (NS Flush) 2 ml BID IV FLUSH 06/20/17 21:00 UNV Acetaminophen (Tylenol) 650 mg Q6H PRN PO PAIN 1-10 AND/OR FEVER >101F 06/20/17 19:00 UNV Ondansetron HCl (Zofran Inj) 4 mg Q6H PRN IV PUSH NAUSEA OR VOMITING 06/20/17 19:00 UNV Albuterol/ Ipratropium (Duoneb Neb) 1 ampule Q4HR NEB INH 06/20/17 20:00 UNV Albuterol/ Ipratropium (Duoneb Neb) 1 ampule Q2HR NEB PRN INH WHEEZING 06/20/17 19:00 UNV Heparin Sodium (Porcine) (Heparin Inj) 5,000 units Q8H SQ 06/20/17 19:00 UNV Miscellaneous Information 1 Q361D XX 06/20/17 19:00 UNV Chlorhexidine Gluconate (Chlorhexidine 2% Cloth) 3 pack Taper DAILY@04 TOP 06/21/17 04:00 06/17/18 03:59 UNV Chlorhexidine Gluconate (Chlorhexidine 2% Cloth) 3 pack UNSCH PRN TOP HYGIENIC CARE 06/20/17 19:00 UNV Senna/Docusate Sodium (Afua-Colace) 1 tab BID PO 06/20/17 21:00 UNV Magnesium Hydroxide (Milk Of Magnesia Liq) 30 ml Q12H PRN PO Mild constipation 06/20/17 19:00 UNV Sennosides (Senokot) 17.2 mg Q12H PRN PO Moderate constipation 06/20/17 19:00 UNV Bisacodyl (Dulcolax Supp) 10 mg DAILY PRN RECTAL SEVERE CONSITIPATION 06/20/17 19:00 UNV Lactulose (Lactulose Liq) 30 ml DAILY PRN PO SEVERE CONSITIPATION 06/20/17 19:00 UNV Cefepime HCl 2000 mg/Sodium Chloride 100 ml @ 200 mls/hr Q8H IV 06/20/17 19:00 UNV Azithromycin 500 mg/Sodium Chloride 250 ml @ 250 mls/hr Q24H IV 06/20/17 19:00 UNV Methylprednisolone Sodium Succinate (SoluMEDROL INJ) 40 mg Q6H IV PUSH 06/20/17 19:00 UNV Dextrose (D50w (Vial) Inj) 50 ml UNSCH PRN IV PUSH HYPOGLYCEMIA-SEE COMMENTS 06/20/17 19:00 UNV Glucagon (Glucagon Inj) 1 mg UNSCH PRN OTHER HYPOGLYCEMIA-SEE COMMENTS 06/20/17 19:00 UNV Insulin Aspart (NovoLOG SUPPLEMENTAL SCALE) 1 ACHS SLIDING SCALE SQ 06/20/17 21:00 UNV Family History Positive for high blood pressure Social History Continues to smoke, no history of alcohol or illicit drug abuse Physical Exam Vital Signs Vital Signs Date Time Temp Pulse Resp B/P (MAP) Pulse Ox O2 Delivery O2 Flow Rate FiO2 06/20/17 18:40 100 Venturi Mask 6.00 50 06/20/17 17:42 89 131/73 (92) 100 BiPAP 15.00 50 06/20/17 15:14 100 BiPAP 15.00 100 06/20/17 15:14 100 BiPAP 15.00 100 06/20/17 14:47 100 100 06/20/17 14:40 110 18 160/76 (104) 100 BiPAP 15.00 100 06/20/17 14:40 64 Nasal Cannula 2.00 06/20/17 14:33 115 30 160/76 (104) 97 Physical Exam GENERAL: Elderly appearing male in respiratory distress. SKIN: Warm and dry. HEAD: Normocephalic. EYES: No scleral icterus. No injection or drainage. NECK: Supple, trachea midline. No JVD or lymphadenopathy. CARDIOVASCULAR: Regular rate and rhythm without murmurs, gallops, or rubs. RESPIRATORY: Breath sounds equal bilaterally. Some accessory muscle use. Bilateral wheezes, occasional fine rhonchi GASTROINTESTINAL: Abdomen soft, non-tender, nondistended. MUSCULOSKELETAL: No cyanosis, or edema. BACK: Nontender without obvious deformity. NEURO EXAM: GCS: 15 Mental Status: The patient is alert and oriented to person, place, and time with normal speech Laboratory Laboratory Tests Test 06/20/17 14:40 06/20/17 15:32 White Blood Count 18.4 Red Blood Count 3.82 Hemoglobin 10.6 Hematocrit 33.7 Mean Corpuscular Volume 88.3 Mean Corpuscular Hemoglobin 27.8 Mean Corpuscular Hemoglobin Concent 31.5 Red Cell Distribution Width 16.2 Platelet Count 404 Mean Platelet Volume 9.7 Neutrophils (%) (Auto) 69.1 Lymphocytes (%) (Auto) 18.2 Monocytes (%) (Auto) 5.4 Eosinophils (%) (Auto) 5.8 Basophils (%) (Auto) 1.5 Neutrophils # (Auto) 12.8 Lymphocytes # (Auto) 3.3 Monocytes # (Auto) 1.0 Eosinophils # (Auto) 1.1 Basophils # (Auto) 0.3 CBC Comment DIFF FINAL Differential Comment Prothrombin Time 10.3 Prothromb Time International Ratio 1.0 Activated Partial Thromboplast Time 24.9 Blood Urea Nitrogen 16 Creatinine 0.90 Random Glucose 125 Total Protein 6.8 Albumin 3.0 Calcium Level 7.6 Alkaline Phosphatase 202 Aspartate Amino Transf (AST/SGOT) 38 Alanine Aminotransferase (ALT/SGPT) 40 Total Bilirubin 0.5 Sodium Level 137 Potassium Level 4.3 Chloride Level 108 Carbon Dioxide Level 24.4 Anion Gap 5 Estimat Glomerular Filtration Rate 86 B-Type Natriuretic Peptide 706 Blood Gas Patient Temperature 37.0 Blood Gas HCO3 21 Blood Gas Base Excess -3.8 Blood Gas Oxygen Saturation 98 Arterial Blood pH 7.38 Arterial Blood Partial Pressure CO2 35 Arterial Blood Partial Pressure O2 275 Arterial Blood Oxygen Content 13.7 Arterial Blood Carboxyhemoglobin 1.7 Arterial Blood Methemoglobin 0.5 Blood Gas Hemoglobin 9.5 Result Diagram: 06/20/17 1440 06/20/17 1440 Imaging Last 24 hours Impressions Chest X-Ray 06/20/17 1446 Signed Impressions: Service Date/Time: Tuesday, June 20, 2017 14:51 - CONCLUSION: 1. Small bilateral pleural effusions with associated lower lobe airspace disease, presumably compressive atelectasis. 2. Diffuse interstitial prominence consistent with positive fluid balance. MD Ankita Espitia VTE Risk Assessment Ankita VTE Risk Assessment: Mod/High Risk (score >= 2) Caprini Risk Assessment Model Point Value = 1 Point Value = 2 Point Value = 3 Point Value = 5 Age 41-60 Minor surgery BMI > 25 kg/m2 Swollen legs Varicose veins or History of unexplained or recurrent spontaneous Oral contraceptives or hormone replacement Sepsis (< 1 month) Serious lung disease, including pneumonia (< 1 month) Abnormal pulmonary function Acute myocardial infarction Congestive heart failure (< 1 month) History of inflammatory bowel disease Medical patient at bed rest Age 61-74 Arthroscopic surgery Major open surgery (> 45 min) Laparoscopic surgery (> 45 min) Malignancy Confined to bed (> 72 hours) Immobilizing plaster cast Central venous access Age >= 75 History of VTE Family history of VTE Factor V Leiden Prothrombin [id number] Lupus anticoagulant Anticardiolipin antibodies Elevated serum homocysteine Heparin-induced thrombocytopenia Other congenital or acquired thrombophilia Stroke (< 1 month) Elective arthroplasty Hip, pelvis, or leg fracture Acute spinal cord injury (< 1 month) Prophylaxis Regimen Total Risk Factor Score Risk Level Prophylaxis Regimen 0-1 Low Early ambulation 2 Moderate Order ONE of the following: *Sequential Compression Device (SCD) *Heparin 5000 units SQ BID 3-4 Higher Order ONE of the following medications: *Heparin 5000 units SQ TID *Enoxaparin/Lovenox 40 mg SQ daily (WT < 150 kg, CrCl > 30 mL/min) *Enoxaparin/Lovenox 30 mg SQ daily (WT < 150 kg, CrCl > 10-29 mL/min) *Enoxaparin/Lovenox 30 mg SQ BID (WT < 150 kg, CrCl > 30 mL/min) AND/OR *Sequential Compression Device (SCD) 5 or more Highest Order ONE of the following medications: *Heparin 5000 units SQ TID (Preferred with Epidurals) *Enoxaparin/Lovenox 40 mg SQ daily (WT < 150 kg, CrCl > 30 mL/min) *Enoxaparin/Lovenox 30 mg SQ daily (WT < 150 kg, CrCl > 10-29 mL/min) *Enoxaparin/Lovenox 30 mg SQ BID (WT < 150 kg, CrCl > 30 mL/min) AND *Sequential Compression Device (SCD) Assessment and Plan Assessment and Plan Respiratory failure - COPD exacerbation - IV steroids - Broad-spectrum antibiotics - Sputum culture and urine antigens - Blood cultures - De-escalate per sensitivity - Pulmonary consult - DuoNeb scheduled and when necessary Hypertension - Continue amlodipine - Carvedilol - IV Lasix Coronary artery disease - Aspirin - Plavix - Atorvastatin - Series of troponins and EKGs Hypothyroidism - Levothyroxine Neuropathy - Lyrica - Nortriptyline Diabetes mellitus - Insulin sliding scale - Resume long-acting insulins when improvement of respiratory status and ability to by mouth GERD - IV Pepcid DVT GI prophylaxis - Teds SCDs - Subcutaneous heparin - Pepcid Critical Care: The total critical care time was 35 minutes. Time to perform other separately billable procedures was not included in the critical care time. Eloy Horvath MD Jun 20, 2017 6:56 pm
[2017-06-20] MEDS ORDERED: SENNOSIDES 8.6 MG TAB PO PRN (19:00)
[2017-06-20] MEDS ORDERED: CHLORHEXIDINE GLUCONATE 2 % 1 PACK (2 CLOTHS) TOP PRN (19:00)
[2017-06-20] MEDS ORDERED: MAGNESIUM HYDROXIDE SUSP 30 ML CUP PO PRN (19:00)
[2017-06-20] MEDS ORDERED: BISACODYL 10 MG SUPP RECTAL PRN (19:00)
[2017-06-20] MEDS ORDERED: MISCELLANEOUS NURSING INFORMATION XX SCH (19:00)
[2017-06-20] MEDS ORDERED: DEXTROSE 50% IN WATER 50 ML VIAL(D50) IV PUSH PRN (19:00)
[2017-06-20] MEDS ORDERED: SODIUM CHLORIDE 0.9% FLUSH 10 ML FLUSH IV FLUSH PRN (19:00)
[2017-06-20] MEDS ORDERED: LACTULOSE SYRUP 20 GM/30 ML CUP PO PRN (19:00)
[2017-06-20] MEDS ORDERED: ONDANSETRON HCL 4 MG/2 ML VIAL IV PUSH PRN (19:00)
[2017-06-20] MEDS ORDERED: GLUCAGON 1 MG/ML VIAL OTHER PRN (19:00)
[2017-06-20 19:23] LABS: BLOOD, URINE NEG (NEG); COMMENT (UR) CULT NOT INDICATED; CULTURE IF INDICATED CULT NOT INDICATED; GLUCOSE,URINE TRACE mg/dL (NEG); KETONE, URINE NEG (NEG); NITRITE,URINE NEG (NEG); PH, URINE 6.5 (5.0-8.5); SQUAMOUS EPITHELIAL CELL URINE <1 /hpf (0-5); URINE COLOR YELLOW (YELLW/STRAW)
[2017-06-20] MEDS: ACETAMINOPHEN 325 MG TAB PO PRN (20:46)
[2017-06-20] MEDS: INSULIN ASPART SUPPLEMENTAL SCALE SQ SCH (21:00)
[2017-06-20] MEDS: NORTRIPTYLINE HCL 25 MG CAP PO SCH (21:00)
[2017-06-20] MEDS: DOCUSATE SODIUM 50 MG/SENNA 8.6 MG TAB PO SCH (21:00)
[2017-06-20] MEDS: CARVEDILOL 6.25 MG TAB PO SCH (21:00)
[2017-06-20] MEDS: SODIUM CHLORIDE 0.9% FLUSH 10 ML FLUSH IV FLUSH SCH (21:00)
[2017-06-20] MEDS: CEFEPIME INJ 2,000 MG in SODIUM CHLORIDE 0.9% INJ 100 ML IV SCH (21:00)
[2017-06-20] MEDS: HEPARIN SODIUM - SQ 10,000 UNITS/ML VIAL SQ SCH (21:00)
[2017-06-20] MEDS: methylPREDNISolone SOD SUCC 40 MG/1 ML VIAL IV PUSH SCH (21:00)
[2017-06-20] MEDS: ATORVASTATIN 80 MG TAB PO SCH (21:00)
[2017-06-20] MEDS: PANTOPRAZOLE SOD 20 MG DELAYED RELEASE TAB PO SCH (21:00)
[2017-06-21] VITALS (18 sets, daily range): BP systolic 92–122; BP diastolic 61–70; PULSE 91–114; RESP 25–31; TEMP 97.2–99.3; O2SAT 89–100
[2017-06-21] MEDS ORDERED: ACETAMINOPHEN/HYDROcodone 325 MG/10 MG TAB PO SCH
[2017-06-21] MEDS: RESP: ALBUTEROL 2.5 MG/IPRATROPIUM 0.5 MG NEB (SCH) INH ×6 (00:06→20:53)
[2017-06-21 01:30] LABS: AUTOMATED NEUTROPHIL # 10.3 TH/MM3 (1.8-7.7); BASOPHIL % 0.2 % (0.0-2.0); HEMATOCRIT 30.2 % (39.0-51.0); HEMO FLAGS DIFF FINAL; LYMPH % 4.9 % (9.0-44.0); LYMPHOCYTE # 0.5 TH/MM3 (1.0-4.8); MEAN CELL VOLUME 87.6 FL (80.0-100.0); MEAN CORPUSCULAR HEMOGLOBIN 27.7 PG (27.0-34.0); MEAN CORPUSCULAR HGB CONC 31.7 % (32.0-36.0); MONO % 0.9 % (0.0-8.0); PLATELET COUNT 226 TH/MM3 (150-450); RED BLOOD COUNT 3.44 MIL/MM3 (4.50-5.90); RED CELL DISTRIBUTION WIDTH 16.1 % (11.6-17.2); WHITE BLOOD COUNT 10.9 TH/MM3 (4.0-11.0)
[2017-06-21] MEDS: methylPREDNISolone SOD SUCC 40 MG/1 ML VIAL IV PUSH SCH ×4 (01:50→20:27)
[2017-06-21 01:53] LABS: BICARBONATE 22.1 MEQ/L (21.0-32.0); CALCIUM-PROTEIN CORRECTED 8.1 MG/DL (8.5-10.1); MAGNESIUM 1.9 MG/DL (1.5-2.5); TOTAL BILIRUBIN ADULT 0.4 MG/DL (0.2-1.0)
[2017-06-21] MEDS: CHLORHEXIDINE GLUCONATE 2 % 1 PACK (2 CLOTHS) TOP SCH (04:00)
[2017-06-21] MEDS ORDERED: MORPHINE SULFATE 8 MG/ML INJ IV PUSH SCH (04:30)
[2017-06-21] MEDS: HEPARIN SODIUM - SQ 10,000 UNITS/ML VIAL SQ SCH ×3 (04:55→20:28)
[2017-06-21] MEDS: CEFEPIME INJ 2,000 MG in SODIUM CHLORIDE 0.9% INJ 100 ML IV SCH ×3 (04:55→20:26)
[2017-06-21] MEDS: LEVOTHYROXINE SODIUM 100 MCG TAB PO SCH (04:55)
[2017-06-21 06:27] LABS: CRITICAL VALUE NO
[2017-06-21 07:11] LABS: BLOOD GAS BASE EXCESS -9.5 mmol/L (-2-2); BLOOD GAS CARBOXYHEMOGLOBIN 1.1 % (0-4); BLOOD GAS HCO3 15 mmol/L (22-26); BLOOD GAS METHEMOGLOBIN 1.3 % (0-2); BLOOD GAS O2 HGB SATURATION 97 % (90-100); BLOOD GAS OXYGEN CONTENT 13.6 Vol % (12.0-20.0); BLOOD GAS PCO2 27 mmHg (38-42); BLOOD GAS PO2 203 mmHg (61-120); BLOOD GAS TOTAL HGB 9.6 G/DL (12.0-16.0); CRITICAL VALUE YES; TEMP CORR TO 98.6
[2017-06-21 07:12] LABS: DRAW SITE LT RADIAL; FIO2 50 %; NUMBER OF ARTERIAL PUNCTURES 2; OXYGEN DEVICE BIPAP; STAT NO; ULNAR PULSE PRESENT
[2017-06-21] MEDS: PANTOPRAZOLE SOD 20 MG DELAYED RELEASE TAB PO SCH (08:52)
[2017-06-21] MEDS: INSULIN ASPART SUPPLEMENTAL SCALE SQ SCH ×2 (08:52→12:10)
[2017-06-21] MEDS: SODIUM CHLORIDE 0.9% FLUSH 10 ML FLUSH IV FLUSH SCH ×2 (08:52→20:26)
[2017-06-21] MEDS: ASPIRIN EC 81 MG TABEC PO SCH (08:53)
[2017-06-21] MEDS: CARVEDILOL 6.25 MG TAB PO SCH ×2 (08:53→20:27)
[2017-06-21] MEDS: CYANOCOBALAMIN 1,000 MCG TAB PO SCH (08:54)
[2017-06-21] MEDS: DOCUSATE SODIUM 50 MG/SENNA 8.6 MG TAB PO SCH ×2 (08:54→20:27)
[2017-06-21] MEDS: CLOPIDOGREL 75 MG TAB PO SCH (08:54)
[2017-06-21] MEDS: amLODIPine BESYLATE 5 MG TAB PO SCH (09:00)
[2017-06-21] MEDS: PREGABALIN 100 MG CAP PO SCH ×3 (09:14→17:59)
[2017-06-21] MEDS ORDERED: INFLUENZA VIRUS VACCINE (QUADRIVALENT) 0.5 ML SYR IM ONE (10:00)
--- NOTE | 2017-06-21 10:26 | RADRPT ---
EXAM DATE/TIME: 06/21/2017 10:00 [facility] COMPARISON: CHEST SINGLE AP, June 20, 2017, 14:51. INDICATIONS : Respiratory failure MEDICAL HISTORY : Peripheral vascular disease. Myocardial infarction. Hypercholesterolemia. Thyroid disease. Neuropathy . Hypoglycemia. Seizures. Numbness. Coronary artery disease. Hyperlipidemia. HTN. GERD. Arthritis. Di abetes. Hydroceles. artery disease. Hyperlipidemia. HTN. GERD. Arthritis. Diabetes. Hydroceles. SURGICAL HISTORY : Tonsillectomy. Appendectomy. Thyroid disease. NeurSeizures. Numbness. Coronary artery disease. Hyperl ipidemia. HTN. GERD.opathy. Hypoglycemia.Arthritis. Diabetes. Hydroceles. Depression. Anxiety. [place] use Anticoagulant therapy. Angioplasty. ENCOUNTER: Subsequent ACUITY: 2 days PAIN SCORE: 0/10 LOCATION: chest FINDINGS: Stable small bilateral pleural effusions with associated airspace disease in the lower lung zones. Im proved diffuse interstitial prominence. Cardiomediastinal contours are stable. Remainder of exam is u nchanged. CONCLUSION: 1. Improved positive fluid balance. 2. Stable small bilateral pleural effusions and associated bilateral lower lung zone airspace disease , presumably compressive atelectasis. Varun De Paz MD on June 21, 2017 at 10:24 Board Certified Radiologist. This report was verified electronically.
[2017-06-21 11:19] LABS: BICARBONATE 17.9 MEQ/L (21.0-32.0); POTASSIUM 4.1 MEQ/L (3.5-5.1)
[2017-06-21] MEDS ORDERED: GLUCAGON 1 MG/ML VIAL OTHER PRN (12:00)
[2017-06-21] MEDS ORDERED: DEXTROSE 50% IN WATER 50 ML VIAL(D50) IV PUSH PRN (12:00)
[2017-06-21] MEDS: FUROSEMIDE 20 MG/2 ML VIAL IV PUSH SCH ×2 (12:15)
[2017-06-21 13:36] LABS: BLOOD, URINE NEG (NEG); COMMENT (UR) CULT NOT INDICATED; CULTURE IF INDICATED CULT NOT INDICATED; GLUCOSE,URINE 1000 mg/dL (NEG); HYALINE CAST, URINE 6 /lpf (RARE); KETONE, URINE 10 mg/dL (NEG); MUCUS URINE FEW /lpf (OCC); NITRITE,URINE NEG (NEG); URINE COLOR LIGHT-YELLOW (YELLW/STRAW)
[2017-06-21 13:40] LABS: DRAW SITE LT RADIAL; FIO2 100 %; NUMBER OF ARTERIAL PUNCTURES 1; OXYGEN DEVICE VENTILATOR; STAT NO; ULNAR PULSE PRESENT; VENT SETTINGS NPPV PEEP5/PS 10
[2017-06-21 14:52] LABS: CREATINE KINASE 46 U/L (39-308)
--- NOTE | 2017-06-21 15:03 | HHI.CCPN ---
Subjective Remarks/Hospital Course 62-year-old male with PMH of DM, lifelong smoker presents via EMS for evaluation of respiratory distress. Per EMS the patient's O2 sats was in the 70s on arrival. He received 250 of Solu-Medrol and 2 albuterol treatments en route. Upon arrival to emergency department the CPAP was applied with some improvement. On my evaluation patient is in moderate respiratory distress on facemask nonrebreather. He states his cough is nonproductive. He is unable to provide much other history due to respiratory distress.. 06/21: O2 sats in the high 90s today. Patient continues to demonstrate labored breathing. On my evaluation he is in mild respiratory distress and on a facemask nonrebreather. Objective Vital Signs Date Time Temp Pulse Resp B/P (MAP) Pulse Ox O2 Delivery O2 Flow Rate FiO2 06/21/17 14:00 106 06/21/17 12:00 99.3 31 112/61 (78) 100 06/21/17 05:30 50 06/21/17 02:35 Venturi Mask 6.00 Intake and Output 06/21/17 06/21/17 06/22/17 08:00 16:00 00:00 Intake Total 150 ml Output Total 400 ml Balance -250 ml Result Diagram: 06/21/17 0110 06/21/17 1040 Other Results Microbiology Date/Time Source Procedure Growth Status 06/20/17 18:50 Urine Catheterized Urine Legionella Antigen - Final PRESUMPTIVE NEGATIVE FOR LEGIONELLA P... Complete 06/20/17 18:50 Urine Catheterized Urine Streptococcus pneumoniae Antigen (M - Final PRESUMPTIVE NEGATIVE FOR STREPTOCOCCU... Complete Laboratory Tests Test 06/20/17 15:32 06/21/17 06:59 Blood Gas Puncture Site LT RADIAL LT RADIAL Blood Gas Patient Temperature 37.0 98.6 Blood Gas HCO3 21 mmol/L (22-26) 15 mmol/L (22-26) Blood Gas Base Excess -3.8 mmol/L (-2-2) -9.5 mmol/L (-2-2) Blood Gas Oxygen Saturation 98 % (90-100) 97 % (90-100) Arterial Blood pH 7.38 (7.380-7.420) 7.36 (7.380-7.420) Arterial Blood Partial Pressure CO2 35 mmHg (38-42) 27 mmHg (38-42) Arterial Blood Partial Pressure O2 275 mmHG (61-120) 203 mmHg (61-120) Arterial Blood Oxygen Content 13.7 Vol % (12.0-20.0) 13.6 Vol % (12.0-20.0) Arterial Blood Carboxyhemoglobin 1.7 % (0-4) 1.1 % (0-4) Arterial Blood Methemoglobin 0.5 % (0-2) 1.3 % (0-2) Blood Gas Hemoglobin 9.5 G/DL (12.0-16.0) 9.6 G/DL (12.0-16.0) Oxygen Delivery Device VENTILATOR BIPAP Blood Gas Ventilator Setting NPPV PEEP5/PS 10 10/5 Blood Gas Inspired Oxygen 100 % 50 % Imaging Last 24 hours Impressions Chest X-Ray 06/20/17 1446 Signed Impressions: Service Date/Time: Tuesday, June 20, 2017 14:51 - CONCLUSION: 1. Small bilateral pleural effusions with associated lower lobe airspace disease, presumably compressive atelectasis. 2. Diffuse interstitial prominence consistent with positive fluid balance. Varun De Paz MD Objective Remarks GENERAL: Elderly appearing male in mild respiratory distress, labored breathing. SKIN: Warm and dry. HEAD: Normocephalic. EYES: No scleral icterus. No injection or drainage. NECK: Supple, trachea midline. No JVD or lymphadenopathy. CARDIOVASCULAR: Regular rate and rhythm without murmurs, gallops, or rubs. RESPIRATORY: O2 sat 98%, O2 sat dropped slowly to 94% without facemask, Labored breathing, Breath sounds equal and clear bilaterally. Some accessory muscle use. occasional fine rhonchi of the left lung lobes GASTROINTESTINAL: Abdomen soft, non-tender, nondistended. MUSCULOSKELETAL: No cyanosis, or edema. BACK: Nontender without obvious deformity. EXTREMITIES: Right leg is above the knee amputation, no swelling or erythema noted of either extremity, left dorsalis pedis pulse present NEURO EXAM: GCS: 15 Mental Status: The patient is alert and oriented to person, place, and time with normal speech A/P Assessment and Plan IMPRESSION Acute Respiratory failure COPD exacerbation Sepsis Gram-positive cocci bacteremia Metabolic acidosis: Elevated lactic acid Coronary artery disease Hyperglycemia/Uncontrolled Diabetes mellitus - possible DKA Chronic pain and neuropathy h/o GERD Plan: Neuro: Awake and alert, oriented to place and time Continue neuro checks every 4. [place]/ Xanax prn for anxiety/ pain Cardiovascular: Tachycardic, monitor heart rate and blood pressure, keep MAP over 65 Hold amlodipine for hypertension CAD; cont beta-serafin, aspirin, plavix, statin initial troponin, CKMB WNL Hold Lasix in view of sepsis with bacteremia. Started on IV fluids. Follow- up 2-D echo Pulmonology: Continue treatments for O2 sat over 92% IV steroids: solumedrol 40mg IV q6h Empirical antibiotics: Cefepime 2g q8h f/u sputum cx Urine legionella/pneumococcal negative Flu swab negative f/u Pulm recs f/u blood cx Cont scheduled Duonebs q4h and PRN GI/liver: 1800 ADA diet GI proph: PO PPI : Creat f/u I&Os ID: Blood cultures growing gram-positive cocci in clusters 2 out of 2 aerobic bottle, we will initiate vancomycin 15 mg per KG IV every 12 hourly, vancomycin pharmacy consult, ID consult to evaluate bacteremia. 2-D echo to evaluate for vegetations. Continue IV cefepime. Endocrine: DM2, hypothyroid Started on insulin drip for uncontrolled hyperglycemia 06/21 UA: 10 ketones, normal anion gap Cont levothyroxine 100 daily Pain Management: Cont Lyrica 100mg TID and Nortriptyline HS (home med) Tylenol 650mg q6 PRN pain. [place] when necessary DVT GI prophylaxis - Teds SCDs - Subcutaneous heparin: Heparin 5000 TID SQ - Prevacid 30 mg daily for GI prophylaxis Patient seen and evaluated with Dr. Martel earlier. Discussed findings assessment and plan as outlined above. Agree with above note. Patient appears to have sepsis with gram-positive cocci bacteremia. Await ID Alison Mike MD R2 Jun 21, 2017 15:03 Bernardino Austin MD Jun 21, 2017 16:09
[2017-06-21] MEDS ORDERED: MISC INFORMATION OTHER ONE (15:30)
[2017-06-21] MEDS ORDERED: VANCOMYCIN INJ 1,050 MG in SODIUM CHLOR 0.9% 250 ML INJ 250 ML IV SCH (16:00)
[2017-06-21] MEDS ORDERED: INSULIN REGULAR (IV INFUSION) 100 UNITS in SODIUM CHLORIDE 0.9% INJ 99 ML IV PRN (16:00)
[2017-06-21] MEDS ORDERED: Vancomycin Consult Pharmacy 1 EA OTHER SCH (16:00)
[2017-06-21] MEDS ORDERED: SODIUM CHLORID 0.9% 500 ML INJ 500 ML IV ONE ×2 (16:00→17:00)
[2017-06-21] MEDS ORDERED: LANSOPRAZOLE SOLUTAB 30 MG TAB PO ONE (16:15)
--- NOTE | 2017-06-21 17:24 | EKG ---
Date Performed: 06/20/2017 Time Performed: 20:37:00 PTAGE: 62 years EKG: SINUS TACHYCARDIA POSSIBLE LEFT ATRIAL ENLARGEMENT POSSIBLE RIGHT VENTRICULAR CONDUCTION DE LAY LEFT BUNDLE BRANCH BLOCK Prolonged corrected QT interval. ABNORMAL ECG PREVIOUS TRACING : 06/20/2017 16.54 DOCTOR: Trino Collazo Interpretating Date/Time 06/21/2017 17:23:40
--- NOTE | 2017-06-21 17:24 | EKG ---
Date Performed: 06/20/2017 Time Performed: 16:54:29 PTAGE: 62 years EKG: Sinus rhythm POSSIBLE LEFT ATRIAL ENLARGEMENT LEFT BUNDLE BRANCH BLOCK Prolonged corrected QT interval ABNORMAL E CG PREVIOUS TRACING : 04/17/2017 11.02 DOCTOR: Trino Collazo Interpretating Date/Time 06/21/2017 17:23:11
--- NOTE | 2017-06-21 17:26 | EKG ---
Date Performed: 06/21/2017 Time Performed: 09:21:13 PTAGE: 62 years EKG: SINUS TACHYCARDIA WITH FIRST DEGREE AV BLOCK LEFT ATRIAL ENLARGEMENT MARKED LEFT AXIS DEVIA TION Left bundle branch block. ABNORMAL ECG PREVIOUS TRACING : 06/21/2017 03.26 DOCTOR: Trino Collazo Interpretating Date/Time 06/21/2017 17:25:29
--- NOTE | 2017-06-21 17:26 | EKG ---
Date Performed: 06/21/2017 Time Performed: 03:26:18 PTAGE: 62 years EKG: Sinus tachycardia with borderline 1st degree A-V block. Indeterminate axis Left bundle bran ch block. Possible anteroseptal infarct - age undetermined Lateral T wave changes are nonspecific Low QRS voltages in limb leads Prolonged corrected QT interval. Abnormal ECG PREVIOUS TRACING : 06/20/2017 20.37 DOCTOR: Trino Collazo Interpretating Date/Time 06/25/2017 07:36:33
[2017-06-21] MEDS ORDERED: VANCOMYCIN INJ 1,200 MG in SODIUM CHLOR 0.9% 250 ML INJ 250 ML IV SCH (18:00)
[2017-06-21] MEDS: AZITHROMYCIN INJ 500 MG in SODIUM CHLOR 0.9% 250 ML INJ 250 ML IV SCH (18:00)
[2017-06-21] MEDS: SODIUM CHLOR 0.9% 1000 ML INJ 1,000 ML IV SCH (18:09)
--- NOTE | 2017-06-21 19:26 | MB ---
cc: Veena CUEVAS DATE OF CONSULTATION 06/21/17 HISTORY OF PRESENT ILLNESS Mr. Aragon is a 62-year-old white male with multiple comorbidities including diabetes, severe peripheral arterial disease status post amputation of the right leg and chronic smoking history with COPD. The patient presented yesterday with increasing shortness of breath requiring BiPap in the emergency room. Initial chest x-ray revealed small pleural effusions with minimal lower lobe airspace disease. Blood cultures have returned initial with gram-positive cocci. Legionella and streptococcal antigens in the urine are negative. Sputum reveals heavy growth of normal luz. White count is 18,000 and random glucose was over 400. MRSA nasal screen was negative. The patient complains of chronic shortness of breath. He continues to smoke and questionable whether or not he actually utilizes medications at home as had been prescribed. At present, he complains of shortness of breath, cough which is generally nonproductive. He has had no hemoptysis. No chest pain. Mild chronic edema in the left leg, right leg absent. PAST MEDICAL HISTORY 1. Hypertension, 2. Hyperlipidemia, 3. Chronic pain syndrome 4. History of chronic reflux and esophageal ulcerations requiring dilatation in the past 5. Degenerative arthritis of both the cervical and lumbosacral spine with chronic pain 6. Right above-knee amputation for PAD 7. Chronic lower extremity neuropathy, 8. History of seizure disorders in the past, presumably due to hypoglycemia. 9. Appendectomy 10. Partial colon resection 11. Coronary artery bypass graft 12. Fusions of the lumbosacral spine. MEDICATIONS Reviewed in the EMR. ALLERGIES None recorded. REVIEW OF SYSTEMS As noted above. PHYSICAL EXAMINATION GENERAL: This is a much older appearing than stated age gentleman, appears chronically ill, quite thin complaining of shortness of breath. VITAL SIGNS: Afebrile, pulse is 110, respirations are 24-26, blood pressure 112/61, saturation on 50% is 99-100%. HEENT: Sclerae pale, anicteric. Mucous membranes are moist. NECK: Neck veins are not distended. CHEST: Diffuse wheezing with scattered congestion. CARDIAC: Regular rhythm. No harsh murmur. ABDOMEN: Soft. EXTREMITIES: Mild edema in the left lower extremity, some ulcerations not obviously infected, chronic changes in that left leg consistent with PAD, very poor pulses. LABORATORY DATA As noted above. DISCUSSION Mr. Aragon presents with multiple comorbidities, chronic heart disease, peripheral arterial disease, diabetes, hypertension and questionable compliance with medical regimens and underlying COPD, continues to smoke. May very well have bacteremia. Initial blood cultures are positive for gram-positive organisms. He has responded to aerosolized bronchodilators and oxygen as well as corticosteroids. We will continue this pulmonary regimen at present, try to scale back the steroids as soon as possible in light of the elevation in blood sugars and continue current antibiotics as ordered, Zithromax cefepime and vancomycin. Infectious disease has been consulted. R. MD LOREN Dean/ /6:00 PM /7:04 PM
[2017-06-21] MEDS: ATORVASTATIN 80 MG TAB PO SCH (20:27)
[2017-06-21] MEDS: NORTRIPTYLINE HCL 25 MG CAP PO SCH (20:27)
[2017-06-21] MEDS: VANCOMYCIN INJ 1,200 MG in SODIUM CHLOR 0.9% 250 ML INJ 250 ML IV SCH (20:30)
[2017-06-21 20:48] LABS: BICARBONATE 21.8 MEQ/L (21.0-32.0); POTASSIUM 4.6 MEQ/L (3.5-5.1)
[2017-06-21 21:01] LABS: CALCIUM-PROTEIN CORRECTED 8.1 MG/DL (8.5-10.1)
[2017-06-21] MEDS: ACETAMINOPHEN/HYDROcodone 325 MG/10 MG TAB PO PRN (22:26)
[2017-06-22] VITALS (19 sets, daily range): BP systolic 102–114; BP diastolic 65–71; PULSE 85–102; RESP 19–29; TEMP 97.4–98.9; O2SAT 90–100
[2017-06-22] MEDS: RESP: ALBUTEROL 2.5 MG/IPRATROPIUM 0.5 MG NEB (SCH) INH ×6 (00:47→19:14)
[2017-06-22] MEDS ORDERED: HEPARIN SODIUM - IV 10,000 UNITS/10 ML VIAL IV PUSH ONE (02:15)
[2017-06-22] MEDS: SODIUM CHLOR 0.9% 1000 ML INJ 1,000 ML IV SCH ×2 (03:00→22:45)
[2017-06-22] MEDS: methylPREDNISolone SOD SUCC 40 MG/1 ML VIAL IV PUSH SCH ×2 (03:32→14:46)
[2017-06-22 03:41] LABS: AUTOMATED NEUTROPHIL # 19.3 TH/MM3 (1.8-7.7); BASOPHIL % 0.2 % (0.0-2.0); HEMATOCRIT 27.8 % (39.0-51.0); HEMO FLAGS DIFF FINAL; LYMPH % 6.1 % (9.0-44.0); LYMPHOCYTE # 1.3 TH/MM3 (1.0-4.8); MEAN CELL VOLUME 86.4 FL (80.0-100.0); MEAN CORPUSCULAR HEMOGLOBIN 26.8 PG (27.0-34.0); MEAN CORPUSCULAR HGB CONC 31.1 % (32.0-36.0); MONO % 3.3 % (0.0-8.0); NEUT % 90.4 % (16.0-70.0); PLATELET COUNT 262 TH/MM3 (150-450); RED BLOOD COUNT 3.22 MIL/MM3 (4.50-5.90); RED CELL DISTRIBUTION WIDTH 16.4 % (11.6-17.2); WHITE BLOOD COUNT 21.3 TH/MM3 (4.0-11.0)
[2017-06-22 03:49] LABS: APTT (PATIENT) 29.2 SEC (24.3-30.1); INTERNATIONAL NORMALIZED RATIO 1.1 RATIO; PROTHROMBIN TIME - PATIENT 10.7 SEC (9.8-11.6)
[2017-06-22] MEDS: CHLORHEXIDINE GLUCONATE 2 % 1 PACK (2 CLOTHS) TOP SCH (04:00)
[2017-06-22 04:02] LABS: ALT (GPT) 27 U/L (12-78); ANION GAP 8 MEQ/L (5-15); AST (GOT) 20 U/L (15-37); BICARBONATE 20.5 MEQ/L (21.0-32.0); BLOOD UREA NITROGEN 36 MG/DL (7-18); CHLORIDE 110 MEQ/L (98-107); GLOMERULAR FILTRATION RATE 74 ML/MIN (>89); POTASSIUM 4.3 MEQ/L (3.5-5.1); SODIUM (NA) 138 MEQ/L (136-145)
[2017-06-22 04:04] LABS: ALKALINE PHOSPHATASE 156 U/L (45-117); TOTAL BILIRUBIN ADULT 0.3 MG/DL (0.2-1.0)
[2017-06-22] MEDS: HEPARIN-D5W 25,000 U/250 ML 250 ML IV PRN (04:06)
[2017-06-22] MEDS: CEFEPIME INJ 2,000 MG in SODIUM CHLORIDE 0.9% INJ 100 ML IV SCH ×2 (05:00→14:46)
[2017-06-22] MEDS: LEVOTHYROXINE SODIUM 100 MCG TAB PO SCH (06:00)
[2017-06-22] MEDS ORDERED: HEPARIN SODIUM - IV 10,000 UNITS/10 ML VIAL IV PUSH PRN ×2 (08:15)
[2017-06-22] MEDS ORDERED: DEXTROSE 50% IN WATER 50 ML VIAL(D50) IV PUSH PRN (08:30)
[2017-06-22] MEDS ORDERED: GLUCAGON 1 MG/ML VIAL OTHER PRN (08:30)
--- NOTE | 2017-06-22 08:45 | HHI.CCPN ---
Subjective Remarks/Hospital Course 62-year-old male with PMH of DM, lifelong smoker presents via EMS for evaluation of respiratory distress. Per EMS the patient's O2 sats was in the 70s on arrival. He received 250 of Solu-Medrol and 2 albuterol treatments en route. Upon arrival to emergency department the CPAP was applied with some improvement. On my evaluation patient is in moderate respiratory distress on facemask nonrebreather. He states his cough is nonproductive. He is unable to provide much other history due to respiratory distress.. 06/21: O2 sats in the high 90s today. Patient continues to demonstrate labored breathing. On my evaluation he is in mild respiratory distress and on a facemask nonrebreather. 06/22 Patient is on BIPAP 04/19 with 40% FIO2. Started on Heparin drip last night for increase trop ( 4.26 from 0.08) on insulin drip 2units/hr. Afebrile. Objective Vital Signs Date Time Temp Pulse Resp B/P (MAP) Pulse Ox O2 Delivery O2 Flow Rate FiO2 06/22/17 08:09 93 40 06/22/17 07:00 Bi-Pap 06/22/17 06:00 89 06/22/17 04:00 97.7 06/22/17 04:00 21 102/65 (77) 06/21/17 21:50 3.00 Intake and Output 06/22/17 06/22/17 06/23/17 08:00 16:00 00:00 Intake Total 281.3 ml Output Total 600 ml Balance -318.7 ml Result Diagram: 06/22/17 0300 06/22/17 0300 Other Results Laboratory Tests Test 06/21/17 10:40 06/21/17 12:50 06/21/17 19:36 06/22/17 03:00 Blood Urea Nitrogen 32 MG/DL 34 MG/DL 36 MG/DL Creatinine 1.29 MG/DL 1.21 MG/DL 1.02 MG/DL Random Glucose 438 MG/DL 259 MG/DL 184 MG/DL Calcium Level 7.9 MG/DL 7.4 MG/DL 7.7 MG/DL Sodium Level 137 MEQ/L 138 MEQ/L 138 MEQ/L Potassium Level 4.1 MEQ/L 4.6 MEQ/L 4.3 MEQ/L Chloride Level 106 MEQ/L 108 MEQ/L 110 MEQ/L Carbon Dioxide Level 17.9 MEQ/L 21.8 MEQ/L 20.5 MEQ/L Anion Gap 13 MEQ/L 8 MEQ/L 8 MEQ/L Estimat Glomerular Filtration Rate 57 ML/MIN 61 ML/MIN 74 ML/MIN Lactic Acid Level 3.6 mmol/L Total Creatine Kinase 46 U/L Troponin I 0.08 NG/ML 4.26 NG/ML Urine Color LIGHT-YELLOW Urine Turbidity CLEAR Urine pH 5.0 Urine Specific [place] 1.011 Urine Protein NEG mg/dL Urine Glucose (UA) 1000 mg/dL Urine Ketones 10 mg/dL Urine Occult Blood NEG Urine Nitrite NEG Urine Bilirubin NEG Urine Urobilinogen LESS THAN 2.0 MG/DL Urine Leukocyte Esterase NEG Urine WBC 1 /hpf Urine Hyaline Casts 6 /lpf Urine Mucus FEW /lpf Microscopic Urinalysis Comment CULT NOT INDICATED Total Protein 5.9 GM/DL 5.7 GM/DL Phosphorus Level 3.5 MG/DL Magnesium Level 2.0 MG/DL Protein Corrected Calcium 8.1 MG/DL White Blood Count 21.3 TH/MM3 Red Blood Count 3.22 MIL/MM3 Hemoglobin 8.6 GM/DL Hematocrit 27.8 % Mean Corpuscular Volume 86.4 FL Mean Corpuscular Hemoglobin 26.8 PG Mean Corpuscular Hemoglobin Concent 31.1 % Red Cell Distribution Width 16.4 % Platelet Count 262 TH/MM3 Mean Platelet Volume 9.4 FL Neutrophils (%) (Auto) 90.4 % Lymphocytes (%) (Auto) 6.1 % Monocytes (%) (Auto) 3.3 % Eosinophils (%) (Auto) 0.0 % Basophils (%) (Auto) 0.2 % Neutrophils # (Auto) 19.3 TH/MM3 Lymphocytes # (Auto) 1.3 TH/MM3 Monocytes # (Auto) 0.7 TH/MM3 Eosinophils # (Auto) 0.0 TH/MM3 Basophils # (Auto) 0.0 TH/MM3 CBC Comment DIFF FINAL Differential Comment Prothrombin Time 10.7 SEC Prothromb Time International Ratio 1.1 RATIO Activated Partial Thromboplast Time 29.2 SEC Albumin 2.6 GM/DL Alkaline Phosphatase 156 U/L Aspartate Amino Transf (AST/SGOT) 20 U/L Alanine Aminotransferase (ALT/SGPT) 27 U/L Total Bilirubin 0.3 MG/DL Imaging Last Impressions Chest X-Ray 06/21/17 0000 Signed Impressions: Service Date/Time: June 10:00 - CONCLUSION: 1. Improved positive fluid balance. 2. Stable small bilateral pleural effusions and associated bilateral lower lung zone airspace disease, presumably compressive atelectasis. Varun De Paz MD Objective Remarks GENERAL: Elderly appearing male in mild respiratory distress, labored breathing. SKIN: Warm and dry. HEAD: Normocephalic. EYES: No scleral icterus. No injection or drainage. NECK: Supple, trachea midline. No JVD or lymphadenopathy. CARDIOVASCULAR: Regular rate and rhythm without murmurs, gallops, or rubs. RESPIRATORY: O2 sat 98%, O2 sat dropped slowly to 94% without facemask, Labored breathing, Breath sounds equal and clear bilaterally. Some accessory muscle use. occasional fine rhonchi of the left lung lobes GASTROINTESTINAL: Abdomen soft, non-tender, nondistended. MUSCULOSKELETAL: No cyanosis, or edema. BACK: Nontender without obvious deformity. 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 Providence/ Xanax prn for anxiety/ pain CV: Monitor HR and BP keep MAP over 65 On Coreg 6.25mg BID, Aspirin, Plavix, Lipitor. Continue with Heparin drip, monitor trop. Cards consulted. For 2D echo Pulm: Wean down oxygen as kimmy keep sat >92% IV steroids: Decrease solumedrol 40mg IV q12h Bronchodilators, NIPPV PRN for resp distress, IS Pulm is following- Dr. Slaughter GI/liver: On PO diet : Monitor renal function, electrolytes replacement per protocol. ID: Continue abx ( Vanco, Cefepime) monitor for signs of infections ( Fever, WBC ) BC 12/6 GPC x 2 sets, BC today: No growth so far Echo ordered r/o vegetations. ID consulted. Strep pneumonia and legionella urinary Ag negative 06/20 06/20 sputum: normal resp luz. Endo: DM2, hypothyroid Transition insulin drip to SSI and Levemir Cont levothyroxine 100 daily heme: Monitor CBC, coags- patient is on heparin drip. Pain Management: Cont Lyrica 100mg TID and Nortriptyline HS (home med) Tylenol 650mg q6 PRN pain. Providence when necessary DVT GI prophylaxis - Teds SCDs - Subcutaneous heparin drip - Prevacid 30 mg daily for GI prophylaxis Level 3 Frank Castaneda MD Jun 22, 2017 08:45
[2017-06-22] MEDS: amLODIPine BESYLATE 5 MG TAB PO SCH (09:00)
[2017-06-22] MEDS: INSULIN NovoLIN REGULAR SUPPLEMENTAL SCALE SQ SCH ×4 (09:00→20:34)
[2017-06-22] MEDS: CYANOCOBALAMIN 1,000 MCG TAB PO SCH (09:36)
[2017-06-22] MEDS: ASPIRIN EC 81 MG TABEC PO SCH (09:36)
[2017-06-22] MEDS: CLOPIDOGREL 75 MG TAB PO SCH (09:36)
[2017-06-22] MEDS: CARVEDILOL 6.25 MG TAB PO SCH ×2 (09:36→19:33)
[2017-06-22] MEDS: PREGABALIN 100 MG CAP PO SCH ×3 (09:36→17:38)
[2017-06-22] MEDS: INSULIN DETEMIR 100 UNITS/ML VIAL SQ SCH ×2 (09:37→20:33)
[2017-06-22] MEDS: DOCUSATE SODIUM 50 MG/SENNA 8.6 MG TAB PO SCH ×2 (09:37→19:36)
[2017-06-22] MEDS: SODIUM CHLORIDE 0.9% FLUSH 10 ML FLUSH IV FLUSH SCH ×2 (09:37→19:34)
--- NOTE | 2017-06-22 10:54 | PD.ID.CON ---
History of Present Illness Service ID Consult Requested By Dr Willard Reason for Consult gram positive bacteremia Primary Care Physician Ro Vogel MD Diagnoses: History of Present Illness 62-year-old male with PMH of DM, lifelong smoker presents via EMS for evaluation of respiratory distress and nonproductive cough He is unable to provide much other history due to respiratory distress.. Pt has no fever, but presented with significant leukocytosis that went up to 21 K His blood clx showed high grade gram positive bacteremia (GPC in pairs, clusters ) in 3/4 bottles, ID's as MSSA CXR with residual effusions, compressive atelectasis Review of Systems Except as stated in HPI: all other systems reviewed are Neg Past Family Social History Allergies: Coded Allergies: No Allergy Information Available (Unverified , 06/21/17) Past Medical History 1. Hypertension, 2. Hyperlipidemia, 3. Chronic pain syndrome 4. History of chronic reflux and esophageal ulcerations requiring dilatation in the past 5. Degenerative arthritis of both the cervical and lumbosacral spine with chronic pain 6. Chronic lower extremity neuropathy, 7. History of seizure disorders in the past, presumably due to hypoglycemia. Past Surgical History Right above-knee amputation for PAD Appendectomy Partial colon resection Coronary artery bypass graft . Fusions of the lumbosacral spine. Active Ordered Medications Medications where reviewed in EMR Antibiotics Include: azithro cefepime vancomycin Family History reviewed non contributory Social History + tobacco positive, 6-7 sig/day no ETOH no drugs Pt denies ever doing IV drugs Physical Exam Vital Signs Vital Signs Date Time Temp Pulse Resp B/P (MAP) Pulse Ox O2 Delivery O2 Flow Rate FiO2 06/22/17 08:09 93 40 06/22/17 07:00 94 Bi-Pap 50 06/22/17 06:00 89 06/22/17 04:02 100 40 06/22/17 04:00 97.7 06/22/17 04:00 85 06/22/17 04:00 97.7 85 21 102/65 (77) 100 06/22/17 02:20 100 40 06/22/17 02:00 90 06/22/17 00:00 97.5 94 29 104/71 (82) 100 06/22/17 00:00 94 06/21/17 23:26 20 06/21/17 23:15 100 50 06/21/17 22:00 96 06/21/17 21:50 97 Nasal Cannula 3.00 06/21/17 20:00 97.2 93 25 100/64 (76) 100 06/21/17 20:00 93 06/21/17 19:00 92 Bi-Pap 50 06/21/17 18:59 20 06/21/17 18:16 89 30 06/21/17 18:00 96 06/21/17 18:00 90 Bi-Pap 50 06/21/17 16:00 98.0 97 30 92/61 (71) 95 06/21/17 16:00 97 06/21/17 14:00 106 06/21/17 12:00 99.3 109 31 112/61 (78) 100 06/21/17 12:00 109 Physical Exam CONSTITUTIONAL/GENERAL: This is an adequately nourished patient, in no apparent distress. TUBES/LINES/DRAINS: SKIN: No jaundice, rashes, or lesions. . Skin temperature appropriate. Not diaphoretic. HEAD: Atraumatic. Normocephalic. EYES: Pupils equal and round and reactive. Extraocular motions intact. No scleral icterus. No injection or drainage. Fundi not examined. ENT: Hearing grossly normal. Nose without bleeding or purulent drainage. Oral mucosae without visible erythema, exudates, masses, or lesions. Poor dentition NECK: Trachea midline. Supple, nontender. CARDIOVASCULAR: Regular rate and rhythm without murmurs, gallops, or rubs. No JVD. Peripheral pulses symmetric. Well healed sternotomy scar RESPIRATORY/CHEST: Symmetric, unlabored respirations. Clear to auscultation. Breath sounds equal bilaterally. No wheezes, rales, or rhonchi. GASTROINTESTINAL: Abdomen soft, non-tender, nondistended. No hepato-splenomegaly , or palpable masses. No guarding. Bowel sounds present. GENITOURINARY: Without palpable bladder distension. MUSCULOSKELETAL: Extremities without clubbing, cyanosis, or edema. Sp R AKA - well healed L LE with cold to touch foot. LYMPHATICS: No palpable cervical or supraclavicular adenopathy. NEUROLOGICAL: Awake and alert. Motor and sensory grossly within normal limits. Follows commands. Clear speech . Moves all extremities. PSYCHIATRIC: No obvious anxiety/depression. no apparent hallucinations or other psychotic thought process. Laboratory Laboratory Tests Test 06/21/17 12:50 06/21/17 19:36 06/22/17 03:00 Urine Color LIGHT-YELLOW Urine Turbidity CLEAR Urine pH 5.0 Urine Specific [place] 1.011 Urine Protein NEG Urine Glucose (UA) 1000 Urine Ketones 10 Urine Occult Blood NEG Urine Nitrite NEG Urine Bilirubin NEG Urine Urobilinogen LESS THAN 2.0 Urine Leukocyte Esterase NEG Urine WBC 1 Urine Hyaline Casts 6 Urine Mucus FEW Microscopic Urinalysis Comment CULT NOT INDICATED Blood Urea Nitrogen 34 36 Creatinine 1.21 1.02 Random Glucose 259 184 Total Protein 5.9 5.7 Calcium Level 7.4 7.7 Phosphorus Level 3.5 Magnesium Level 2.0 Sodium Level 138 138 Potassium Level 4.6 4.3 Chloride Level 108 110 Carbon Dioxide Level 21.8 20.5 Anion Gap 8 8 Estimat Glomerular Filtration Rate 61 74 Protein Corrected Calcium 8.1 Troponin I 4.26 White Blood Count 21.3 Red Blood Count 3.22 Hemoglobin 8.6 Hematocrit 27.8 Mean Corpuscular Volume 86.4 Mean Corpuscular Hemoglobin 26.8 Mean Corpuscular Hemoglobin Concent 31.1 Red Cell Distribution Width 16.4 Platelet Count 262 Mean Platelet Volume 9.4 Neutrophils (%) (Auto) 90.4 Lymphocytes (%) (Auto) 6.1 Monocytes (%) (Auto) 3.3 Eosinophils (%) (Auto) 0.0 Basophils (%) (Auto) 0.2 Neutrophils # (Auto) 19.3 Lymphocytes # (Auto) 1.3 Monocytes # (Auto) 0.7 Eosinophils # (Auto) 0.0 Basophils # (Auto) 0.0 CBC Comment DIFF FINAL Differential Comment Prothrombin Time 10.7 Prothromb Time International Ratio 1.1 Activated Partial Thromboplast Time 29.2 Albumin 2.6 Alkaline Phosphatase 156 Aspartate Amino Transf (AST/SGOT) 20 Alanine Aminotransferase (ALT/SGPT) 27 Total Bilirubin 0.3 Date/Time Source Procedure Growth Status 06/22/17 03:16 Blood Peripheral Aerobic Blood Culture Pending Received 06/22/17 03:16 Blood Peripheral Anaerobic Blood Culture Pending Received 06/20/17 20:00 Sputum Expectorated Sputum Gram Stain - Final Complete 06/20/17 20:00 Sputum Expectorated Sputum Sputum Culture - Final HEAVY GROWTH NORMAL RESPIRATORY KALEN Complete 06/20/17 18:50 Urine Catheterized Urine Legionella Antigen - Final PRESUMPTIVE NEGATIVE FOR LEGIONELLA P... Complete 06/20/17 18:50 Urine Catheterized Urine Streptococcus pneumoniae Antigen (M - Final PRESUMPTIVE NEGATIVE FOR STREPTOCOCCU... Complete Result Diagram: 06/22/17 0300 06/22/17 0300 Imaging Last Impressions Chest X-Ray 06/21/17 0000 Signed Impressions: Service Date/Time: , June 21, 2017 10:00 - CONCLUSION: 1. Improved positive fluid balance. 2. Stable small bilateral pleural effusions and associated bilateral lower lung zone airspace disease, presumably compressive atelectasis. Varun De Paz MD Assessment and Plan Assessment and Plan A/p: MSSA bacteremia ? 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
[2017-06-22] MEDS: ACETAMINOPHEN/HYDROcodone 325 MG/10 MG TAB PO PRN ×2 (10:57→18:20)
--- NOTE | 2017-06-22 11:34 | MB ---
cc: CCList DATE OF CONSULTATION: 06/22/2017 REASON FOR CONSULTATION: N-STEMI. HISTORY OF PRESENT ILLNESS Ezio Aragon is a pleasant 62-year-old male who presents to [facility] emergency room on June 20, 2017 due to shortness of breath. The patient states that shortness of breath has been somewhat present since his recent hospitalization for which she was discharged on June 06, 2017. Shortness of breath has gotten steadily worse over that time and then and then over the past few days has gotten significantly worse. He does have chronic shortness of breath as well as a chronic cough. Cough has been relatively nonproductive over the past few days. He try to stick out his shortness of breath but he just got worse and so he came to the emergency room. On arrival per EMS as pulse ox was around 70. He was placed on BiPap and since that time is to and done much better respiratory ramos. PAST MEDICAL HISTORY 1. Coronary artery disease. 2. Diabetes mellitus 3. Osteoarthritis 4. Anxiety and depression 5. Hypertension 6. Hyperlipidemia 7. History of esophageal ulcer. 8. Gastroesophageal reflux disease 9. Chronic cervical lumbar spine pain. 10. Peripheral artery disease. 11. Chronic neuropathy 12. History of seizures. 13. Thyroid disease. 14. COPD. PAST SURGICAL HISTORY 1. Coronary artery bypass grafting (August 31, 2006) with OCONNELL to LAD, SVG to OM, SVG to PDA, SVG to PLV. 2. Right AKA (August 18, 2015). 3. Cardiac catheterization (April 18, 2017) left main overall small vessel with 95% ostial stenosis. LAD overall small with diffuse 80% disease in proximal portion and 100% occluded in the midportion. He has one small diagonal off of it with diffuse 78% disease. Left circumflex is overall small vessel with multiple lesions of 80%. RCA is small vessel with a 97 occlusion. The proximal portion and 100% occlusion distally. OCONNELL to LAD is patent with no significant disease. SVG to RCA has pain with no significant disease. Per the history the patient had an SVG to the PLV and this was most likely part of this graft, to the PDA but appears that this portion has occluded, but blood flow from the SVG to the PDA does retrogradely fill the PLV. SVG to OM with no significant disease. 4. Appendectomy. 5. Colectomy. 6. L5-S1 fusion 7. Tonsillectomy 8. Hydrocele surgery x2. 9. Clavicle surgery. ALLERGIES NO KNOWN DRUG ALLERGIES. MEDICATIONS 1. Plavix 75 mg daily 2. Lipitor 80 mg every night 3. Coreg 6.25 mg b.i.d. 4. Norvasc 5 mg daily 5. Lisinopril 10 mg every 12 hours. 6. Aspirin 81 mg daily 7. Pingree every 6 hours as needed for pain. 8. Lyrica 100 mg t.i.d. 9. Nitrofurantoin 75 mg every night 10. Hydrochlorothiazide 25 mg daily 11. Prilosec 20 mg b.i.d. 12. NovoLog sliding scale. 13. Levemir 8 units b.i.d. 14. Synthroid 100 mcg daily. FAMILY HISTORY Denies premature coronary artery disease or sudden cardiac within the family. SOCIAL HISTORY The patient had previously quit smoking for around the year the urine half by recently restarted smoking. Denies alcohol or drug abuse. REVIEW OF SYSTEMS 14-systems were reviewed including osteopathic pertinent positives and negatives above otherwise negative. PHYSICAL EXAMINATION VITAL SIGNS: Temperature 97.7, heart rate 85, blood pressure 102/65, respirations 20, pulse ox 100% on BiPap (FIO2 40%, 10/05). IN GENERAL: In general the patient appears comfortable on BiPap. Extraocular muscles intact. Mucous membranes moist. NECK: Supple. No JVD at 45 degrees. No carotid bruits heard bilaterally. Carotid upstroke is brisk in nature. HEART: The heart is regular rate and rhythm. Positive first and second heart sounds with no murmurs, gallops or rubs. LUNGS: Lungs have decreased breath sounds bilaterally with overall decreased air movement. No overt wheezes, rales or rhonchi. ABDOMEN: Abdomen is soft, nontender, nondistended. No organomegaly noted. EXTREMITIES: Show left lower extremity without clubbing, cyanosis or edema. Right lower extremity with previous above-knee amputation. NEUROLOGIC: No focal deficits. SKIN: Warm, dry and intact. Osteopathic with no kyphoscoliosis, lordosis or paraspinal tender points. LABORATORY FINDINGS Hemoglobin 8.6, hematocrit 27.8, platelets 262. Potassium 4.3, BUN 36, creatinine 1.02, troponin 4.26. Electrocardiogram (May 22, 2017 at 0326) sinus tachycardia with borderline first degree AV block, left bundle branch block with secondary ST-T wave changes. IMPRESSION 1. N-STEMI possible type 1 versus type 2 2. Acute respiratory failure most likely multifactorial in nature. 3. COPD exacerbation. 4. Small bilateral pleural effusions 5. Gram-positive cocci bacteremia in 2/4 bottles 6. Metabolic acidosis 7. Known coronary artery disease with a history of coronary artery bypass graft as above. 8. Diabetes mellitus 9. Continued tobacco abuse. RECOMMENDATIONS 1. Mr. Aragon presented with significant shortness of breath which is most likely multifactorial including COPD as well as a small bilateral pleural effusion and continued tobacco abuse. 2. He did have an elevated troponin and overall had no evidence of chest pain. He did have a similar event in April and at that time. At that time I Catheterized him and the films were reviewed showing a 3/4 grafts patent and overall significantly small false pass vessels not amendable to intervention. 3. We will continue BiPap per critical care. 4. I spoke to Dr. Castaneda about the case and at this time we will plan on getting his respiratory status better and we can consider repeat catheterization to make sure that none of his bypass grafts have occluded. I spoke to him for greater than 3 minutes about tobacco cessation. 5. He does have 2/4 bottles positive for gram-positive cocci and infectious disease has been consulted for further recommendations. 6. He does have small bilateral pleural effusions. Looking back this appears somewhat chronic as he has had this on multiple previous x-rays. 7. We will continue him on his aspirin, Plavix, Lipitor, Coreg and heparin drip. 8. We will check an echocardiogram to look at his overall left ventricular function, cardiac structure and possible vulvopathies. Thank you for allowing me to see Ezio Aragon if there are any questions please do not hesitate to call. Anupam Richter DO REYNA/ace /9:35 AM /10:04 AM ONOFRE
[2017-06-22 12:52] LABS: APTT (PATIENT) 42.3 SEC (24.3-30.1)
[2017-06-22] MEDS: VANCOMYCIN INJ 1,200 MG in SODIUM CHLOR 0.9% 250 ML INJ 250 ML IV SCH (14:47)
[2017-06-22] MEDS: AZITHROMYCIN INJ 500 MG in SODIUM CHLOR 0.9% 250 ML INJ 250 ML IV SCH (17:39)
--- NOTE | 2017-06-22 17:54 | ECHRPT ---
Indication: SHORTNESS OF BREATH CONCLUSIONS The left ventricular systolic function is [id number] reduced with an estimated ejection fra ction in the range of 35-40%. The right ventricular systoilc function is mildly decreased. Severe mitral valve regurgitation. There is mild tricuspid valve regurgitation. A large left sided pleural effusion is noted. BP: 104 / 71 HR: 94 Rhythm: Sinus MEASUREMENTS (Male / Female) Normal Values Technical Quality:Fair 2D ECHO LV Diastolic Diameter PLAX 5.2 cm 4.2 - 5.9 / 3.9 - 5.3 cm LV Systolic Diameter PLAX 4.2 cm IVS Diastolic Thickness 0.8 cm 0.6 - 1.0 / 0.6 - 0.9 cm LVPW Diastolic Thickness 0.9 cm 0.6 - 1.0 / 0.6 - 0.9 cm LV Relative Wall Thickness 0.3 RV Internal Dim ED PLAX 3.3 cm LVOT Diameter 2.2 cm Aortic Root Diameter 2.9 cm LA Systolic Diameter LX 4.8 cm 3.0 - 4.0 / 2.7 - 3.8 cm M-MODE AV Cusp Separation MM 2.2 cm DOPPLER AV Peak Velocity 97.9 cm/s AV Peak Gradient 3.8 mmHg AV Mean Gradient 2.0 mmHg AV Velocity Time Integral 12.8 cm LVOT Peak Velocity 47.4 cm/s LVOT Peak Gradient 0.9 mmHg LVOT Velocity Time Integral 6.5 cm AV Area Cont Eq vti 1.9 cm AV Area Cont Eq pk 1.8 cm Mitral E Point Velocity 138.0 cm/s LV E' Lateral Velocity 8.4 cm/s Mitral E to LV E' Lateral Ratio 16.5 LV E' Septal Velocity 5.1 cm/s Mitral E to LV E' Septal Ratio 27.2 TR Peak Velocity 327.0 cm/s TR Peak Gradient 42.8 mmHg Right Atrial Pressure 10.0 mmHg Pulmonary Artery Systolic Pressu 52.8 mmHg Right Ventricular Systolic Press 52.8 mmHg PV Peak Velocity 57.9 cm/s PV Peak Gradient 1.3 mmHg FINDINGS LEFT VENTRICLE Normal left ventricular size. Wall thickness is normal. The left ventricular systolic function is [id number] reduced with an estimated ejection fra ction in the range of 35-40%. No regional wall motion abnormalities are present. RIGHT VENTRICLE The right ventricular size is normal. The right ventricular systoilc function is mildly decreased. LEFT ATRIUM The left atrial size is [id number] dilated. RIGHT ATRIUM The right atrial size is normal. ATRIAL SEPTUM Normal atrial septal thickness. AORTA The aortic root and proximal ascending aorta are normal in size on limited imaging. MITRAL VALVE Structurally normal mitral valve. Severe mitral valve regurgitation. The mitral valve regurgitation jet is directed posteriorly Systolic flow reversal is noted in the pulmonary veins consistent with severe mitral regurgitation. No mitral valve stenosis. AORTIC VALVE Trileaflet aortic valve. No aortic valve stenosis or regurgitation. TRICUSPID VALVE Structurally normal tricuspid valve. There is mild tricuspid valve regurgitation. No tricuspid valve stenosis. The estimated pulmonary arterial pressure is 52.8 mmHg. PULMONARY VALVE Trivial pulmonary valve regurgitation. VESSELS The inferior vena cava is normal in size. PERICARDIUM A large left sided pleural effusion is noted. Anupam Richter DO (Electronically Signed) Final Date:22 June 2017 17:53
[2017-06-22] MEDS: OXACILLIN INJ 2 GM in SODIUM CHLORIDE 0.9% INJ 100 ML IV SCH ×2 (18:07→21:00)
[2017-06-22] MEDS: ATORVASTATIN 80 MG TAB PO SCH (19:34)
[2017-06-22 21:41] LABS: APTT (PATIENT) 35.9 SEC (24.3-30.1)
[2017-06-22] MEDS: NORTRIPTYLINE HCL 25 MG CAP PO SCH (21:58)
[2017-06-22] MEDS: ALPRAZolam 0.5 MG TAB PO PRN (21:58)
[2017-06-23] VITALS (18 sets, daily range): BP systolic 98–125; BP diastolic 62–79; PULSE 82–99; RESP 16–24; TEMP 97.9–98.6; O2SAT 92–100
[2017-06-23] MEDS: RESP: ALBUTEROL 2.5 MG/IPRATROPIUM 0.5 MG NEB (SCH) INH ×6 (00:32→21:08)
[2017-06-23] MEDS: OXACILLIN INJ 2 GM in SODIUM CHLORIDE 0.9% INJ 100 ML IV SCH ×6 (00:36→21:39)
[2017-06-23] MEDS: INSULIN NovoLIN REGULAR SUPPLEMENTAL SCALE SQ SCH ×6 (00:39→21:23)
[2017-06-23] MEDS: ACETAMINOPHEN/HYDROcodone 325 MG/10 MG TAB PO PRN ×3 (00:49→20:00)
[2017-06-23] MEDS: methylPREDNISolone SOD SUCC 40 MG/1 ML VIAL IV PUSH SCH ×2 (03:41→15:13)
[2017-06-23] MEDS: CHLORHEXIDINE GLUCONATE 2 % 1 PACK (2 CLOTHS) TOP SCH (04:00)
[2017-06-23 04:41] LABS: AUTOMATED NEUTROPHIL # 14.9 TH/MM3 (1.8-7.7); BASOPHIL % 0.1 % (0.0-2.0); HEMATOCRIT 28.6 % (39.0-51.0); HEMO FLAGS DIFF FINAL; LYMPH % 7.8 % (9.0-44.0); LYMPHOCYTE # 1.3 TH/MM3 (1.0-4.8); MEAN CELL VOLUME 87.1 FL (80.0-100.0); MEAN CORPUSCULAR HEMOGLOBIN 28.6 PG (27.0-34.0); MEAN CORPUSCULAR HGB CONC 32.8 % (32.0-36.0); MONO % 4.6 % (0.0-8.0); NEUT % 87.5 % (16.0-70.0); PLATELET COUNT 218 TH/MM3 (150-450); RED BLOOD COUNT 3.29 MIL/MM3 (4.50-5.90); RED CELL DISTRIBUTION WIDTH 16.5 % (11.6-17.2); WHITE BLOOD COUNT 17.1 TH/MM3 (4.0-11.0)
[2017-06-23 05:01] LABS: APTT (PATIENT) 43.4 SEC (24.3-30.1)
[2017-06-23 05:04] LABS: BICARBONATE 21.8 MEQ/L (21.0-32.0); MAGNESIUM 2.4 MG/DL (1.5-2.5); POTASSIUM 4.5 MEQ/L (3.5-5.1)
[2017-06-23] MEDS: HEPARIN-D5W 25,000 U/250 ML 250 ML IV PRN (06:14)
[2017-06-23] MEDS: LEVOTHYROXINE SODIUM 100 MCG TAB PO SCH (06:15)
[2017-06-23] MEDS: SODIUM CHLOR 0.9% 1000 ML INJ 1,000 ML IV SCH (07:46)
--- NOTE | 2017-06-23 09:05 | HHI.CCPN ---
Subjective Remarks/Hospital Course 62-year-old male with PMH of DM, lifelong smoker presents via EMS for evaluation of respiratory distress. Per EMS the patient's O2 sats was in the 70s on arrival. He received 250 of Solu-Medrol and 2 albuterol treatments en route. Upon arrival to emergency department the CPAP was applied with some improvement. On my evaluation patient is in moderate respiratory distress on facemask nonrebreather. He states his cough is nonproductive. He is unable to provide much other history due to respiratory distress.. 06/21: O2 sats in the high 90s today. Patient continues to demonstrate labored breathing. On my evaluation he is in mild respiratory distress and on a facemask nonrebreather. 06/22 Patient is on BIPAP 04/19 with 40% FIO2. Started on Heparin drip last night for increase trop ( 4.26 from 0.08) on insulin drip 2units/hr. Afebrile. 06/23 Patient was on BIPAP overnight now on partial rebreather, Remains on Heparin drip. Objective Vital Signs Date Time Temp Pulse Resp B/P (MAP) Pulse Ox O2 Delivery O2 Flow Rate FiO2 06/23/17 08:08 93 Partial Rebreather 06/23/17 07:00 75 06/23/17 06:00 91 06/23/17 04:00 98.0 06/23/17 04:00 22 109/71 (84) 06/22/17 19:14 6.00 Intake and Output 06/23/17 06/23/17 06/24/17 08:00 16:00 00:00 Intake Total 470 ml Output Total 900 ml Balance -430 ml Result Diagram: 06/23/17 0430 06/23/17 0430 Other Results Laboratory Tests Test 06/22/17 11:49 06/22/17 15:33 06/22/17 20:55 06/23/17 04:30 Activated Partial Thromboplast Time 42.3 SEC 35.9 SEC 43.4 SEC Troponin I 1.50 NG/ML 1.10 NG/ML 0.98 NG/ML Lactic Acid Level 2.7 mmol/L White Blood Count 17.1 TH/MM3 Red Blood Count 3.29 MIL/MM3 Hemoglobin 9.4 GM/DL Hematocrit 28.6 % Mean Corpuscular Volume 87.1 FL Mean Corpuscular Hemoglobin 28.6 PG Mean Corpuscular Hemoglobin Concent 32.8 % Red Cell Distribution Width 16.5 % Platelet Count 218 TH/MM3 Mean Platelet Volume 9.7 FL Neutrophils (%) (Auto) 87.5 % Lymphocytes (%) (Auto) 7.8 % Monocytes (%) (Auto) 4.6 % Eosinophils (%) (Auto) 0.0 % Basophils (%) (Auto) 0.1 % Neutrophils # (Auto) 14.9 TH/MM3 Lymphocytes # (Auto) 1.3 TH/MM3 Monocytes # (Auto) 0.8 TH/MM3 Eosinophils # (Auto) 0.0 TH/MM3 Basophils # (Auto) 0.0 TH/MM3 CBC Comment DIFF FINAL Differential Comment Blood Urea Nitrogen 37 MG/DL Creatinine 0.95 MG/DL Random Glucose 135 MG/DL Calcium Level 7.6 MG/DL Phosphorus Level 3.6 MG/DL Magnesium Level 2.4 MG/DL Sodium Level 141 MEQ/L Potassium Level 4.5 MEQ/L Chloride Level 110 MEQ/L Carbon Dioxide Level 21.8 MEQ/L Anion Gap 9 MEQ/L Estimat Glomerular Filtration Rate 81 ML/MIN Imaging Last Impressions Chest X-Ray 06/21/17 0000 Signed Impressions: Service Date/Time: June 10:00 - CONCLUSION: 1. Improved positive fluid balance. 2. Stable small bilateral pleural effusions and associated bilateral lower lung zone airspace disease, presumably compressive atelectasis. Varun De Paz MD Objective Remarks GENERAL: Elderly appearing male in mild respiratory distress, labored breathing. SKIN: Warm and dry. HEAD: Normocephalic. EYES: No scleral icterus. No injection or drainage. NECK: Supple, trachea midline. No JVD or lymphadenopathy. CARDIOVASCULAR: Regular rate and rhythm without murmurs, gallops, or rubs. RESPIRATORY: O2 sat 98%, O2 sat dropped slowly to 94% without facemask, Labored breathing, Breath sounds equal and clear bilaterally. Some accessory muscle use. occasional fine rhonchi of the left lung lobes GASTROINTESTINAL: Abdomen soft, non-tender, nondistended. MUSCULOSKELETAL: No cyanosis, or edema. BACK: Nontender without obvious deformity. 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 [place]/ Xanax prn for anxiety/ pain CV: Monitor HR and BP keep MAP over 65 On Coreg 6.25mg BID, Aspirin, Plavix, Lipitor. Continue with Heparin drip, monitor trop( trending down). Cards is following-Dr. Richter Echo showed EF 35-40%, severe MR. Pulm: Wean down oxygen as kimmy keep sat >92% IV steroids: solumedrol 40mg IV q12h Bronchodilators, NIPPV PRN for resp distress, IS Pulm is following- Dr. Slaughter GI/liver: On PO diet : Monitor renal function, electrolytes replacement per protocol. d/c IVF, diurese with Lasix 40mg x1 ID: Continue abx per ID ( Oxacillin) monitor for signs of infections ( Fever, WBC) BC 12/6 GPC/ staph Aureus , BC 12/8: No growth so far Strep pneumonia and legionella urinary Ag negative 06/20 12/6 sputum: normal resp luz. Endo: DM2, hypothyroid On SSI and Levemir Cont levothyroxine 100 daily heme: Monitor CBC, coags- patient is on heparin drip. Pain Management: Cont Lyrica 100mg TID and Nortriptyline HS (home med) Tylenol 650mg q6 PRN pain. [place] when necessary DVT GI prophylaxis - Teds SCDs - Subcutaneous heparin drip - Prevacid 30 mg daily for GI prophylaxis Level 3 Frank Castaneda MD Jun 23, 2017 09:05
[2017-06-23] MEDS ORDERED: FUROSEMIDE 40 MG/4 ML VIAL IV PUSH ONE (09:15)
[2017-06-23] MEDS: CLOPIDOGREL 75 MG TAB PO SCH (10:24)
[2017-06-23] MEDS: SODIUM CHLORIDE 0.9% FLUSH 10 ML FLUSH IV FLUSH SCH ×2 (10:24→21:22)
[2017-06-23] MEDS: amLODIPine BESYLATE 5 MG TAB PO SCH (10:24)
[2017-06-23] MEDS: ASPIRIN EC 81 MG TABEC PO SCH (10:24)
[2017-06-23] MEDS: CYANOCOBALAMIN 1,000 MCG TAB PO SCH (10:24)
[2017-06-23] MEDS: DOCUSATE SODIUM 50 MG/SENNA 8.6 MG TAB PO SCH ×2 (10:24→21:00)
[2017-06-23] MEDS: CARVEDILOL 6.25 MG TAB PO SCH ×2 (10:25→21:21)
[2017-06-23] MEDS: PREGABALIN 100 MG CAP PO SCH ×3 (10:25→17:50)
[2017-06-23] MEDS: INSULIN DETEMIR 100 UNITS/ML VIAL SQ SCH ×2 (10:25→21:22)
--- NOTE | 2017-06-23 13:01 | PD.CARD.PN ---
Subjective Subjective Remarks SOB, no chest pain Now on NRB, off bipap Objective Medications Current Medications Medications (Trade) Dose Ordered Sig/Nuzhat Route Start Time Stop Time Status Last Admin (Norvasc) 5 mg DAILY PO 06/21/17 09:00 06/23/17 10:24 (Ecotrin Ec) 81 mg DAILY PO 06/21/17 09:00 06/23/17 10:24 (Lipitor) 80 mg HS PO 06/20/17 21:00 06/22/17 19:34 (Coreg) 6.25 mg BID PO 06/20/17 21:00 06/23/17 10:25 (Plavix) 75 mg DAILY PO 06/21/17 09:00 06/23/17 10:24 (Synthroid) 100 mcg DAILY@06 PO 06/21/17 06:00 06/23/17 06:15 (Pamelor) 75 mg HS PO 06/20/17 21:00 06/22/17 21:58 (Lyrica) 100 mg TID PO 06/21/17 09:00 06/23/17 12:38 (Vitamin B12) 1,000 mcg DAILY PO 06/21/17 09:00 06/23/17 10:24 (NS Flush) 2 ml UNSCH PRN IV FLUSH 06/20/17 19:00 (NS Flush) 2 ml BID IV FLUSH 06/20/17 21:00 06/23/17 10:24 (Tylenol) 650 mg Q6H PRN PO 06/20/17 19:00 06/20/17 20:46 (Zofran Inj) 4 mg Q6H PRN IV PUSH 06/20/17 19:00 (Duoneb Neb) 1 ampule Q4HR NEB INH 06/20/17 20:00 06/23/17 12:29 (Duoneb Neb) 1 ampule Q2HR NEB PRN INH 06/20/17 19:00 Miscellaneous Information 1 Q361D XX 06/20/17 19:00 (Chlorhexidine 2% Cloth) 3 pack Taper DAILY@04 TOP 06/21/17 04:00 06/17/18 03:59 06/23/17 04:00 (Chlorhexidine 2% Cloth) 3 pack UNSCH PRN TOP 06/20/17 19:00 (Afua-Colace) 1 tab BID PO 06/20/17 21:00 06/23/17 10:24 (Milk Of Magnesia Liq) 30 ml Q12H PRN PO 06/20/17 19:00 (Senokot) 17.2 mg Q12H PRN PO 06/20/17 19:00 (Dulcolax Supp) 10 mg DAILY PRN RECTAL 06/20/17 19:00 (Lactulose Liq) 30 ml DAILY PRN PO 06/20/17 19:00 Azithromycin 500 mg/Sodium Chloride 250 ml @ 250 mls/hr Q24H IV 06/21/17 18:00 06/22/17 17:39 ([place] 10-325 Mg) 1 tab Q6H PRN PO 06/21/17 12:15 06/23/17 12:48 (Xanax) 0.5 mg Q6H PRN PO 06/21/17 12:15 06/22/17 21:58 (Heparin Inj) 5,000 units UNSCH PRN IV PUSH 06/22/17 08:15 (Heparin Inj) 2,500 units UNSCH PRN IV PUSH 06/22/17 08:15 Heparin Sodium/ Dextrose 250 ml @ 8 mls/hr TITRATE PRN IV 06/22/17 02:15 06/23/17 06:14 (SoluMEDROL INJ) 40 mg Q12H IV PUSH 06/22/17 15:00 06/23/17 03:41 (D50w (Vial) Inj) 50 ml UNSCH PRN IV PUSH 06/22/17 08:30 (Glucagon Inj) 1 mg UNSCH PRN OTHER 06/22/17 08:30 (NovoLIN R SUPPLEMENTAL SCALE) 1 Q4H SQ 06/22/17 09:00 06/23/17 12:38 (Levemir Inj) 5 units Q12HR SQ 06/22/17 09:00 06/23/17 10:25 Oxacillin Sodium 2 gm/Sodium Chloride 100 ml @ 200 mls/hr Q4H IV 06/22/17 17:00 06/23/17 12:38 Vital Signs / I&O Vital Signs Date Time Temp Pulse Resp B/P (MAP) Pulse Ox O2 Delivery O2 Flow Rate FiO2 06/23/17 11:25 21 06/23/17 08:08 93 Partial Rebreather 06/23/17 07:00 Bi-Pap 75 06/23/17 06:00 91 06/23/17 05:18 95 75 06/23/17 04:00 98.0 06/23/17 04:00 85 06/23/17 04:00 98.0 85 22 109/71 (84) 92 06/23/17 02:00 82 06/23/17 01:49 18 06/23/17 01:05 95 60 06/23/17 00:50 Venturi Mask 50 06/23/17 00:00 85 06/23/17 00:00 98.2 85 20 98/66 (77) 100 06/22/17 22:00 91 06/22/17 21:30 100 40 06/22/17 20:00 96 06/22/17 20:00 97.4 96 19 114/70 (85) 98 06/22/17 19:14 95 Venturi Mask 6.00 50 06/22/17 19:00 Bi-Pap 40 06/22/17 18:00 101 06/22/17 16:29 93 40 06/22/17 16:00 96 06/22/17 16:00 97.6 96 20 108/66 (80) 94 06/22/17 14:00 97 I/O 06/22/17 06/22/17 06/22/17 06/23/17 06/23/17 06/23/17 07:00 15:00 23:00 07:00 15:00 23:00 Intake Total 279.8 ml 10.5 ml 810 ml 470 ml 257 ml Output Total 600 ml 550 ml 900 ml Balance -320.2 ml -539.5 ml 810 ml -430 ml 257 ml Intake Oral 120 ml 120 ml IV Total 159.8 ml 10.5 ml 810 ml 350 ml 257 ml Output Urine Total 600 ml 550 ml 900 ml # Bowel Movements 0 0 Physical Exam GENERAL: NAD, AAOx3 SKIN: Warm and dry. HEAD: Atraumatic. Normocephalic. EYES: Pupils equal and round. No scleral icterus. No injection or drainage. ENT: No nasal bleeding or discharge. Mucous membranes pink and moist. NECK: Trachea midline. No JVD. CARDIOVASCULAR: Regular rate and rhythm. RESPIRATORY: No accessory muscle use. Decreased breath sounds bilaterally GASTROINTESTINAL: Abdomen soft, non-tender, nondistended. Hepatic and splenic margins not palpable. MUSCULOSKELETAL: Extremities without clubbing, cyanosis, or edema. RLE with AKA NEUROLOGICAL: Awake and alert. No obvious cranial nerve deficits. Motor grossly within normal limits. Five out of 5 muscle strength in the arms and legs. Normal speech. PSYCHIATRIC: Appropriate mood and affect; insight and judgment normal. Laboratory Laboratory Tests Test 06/22/17 15:33 06/22/17 20:55 06/23/17 04:30 Troponin I 1.50 NG/ML 1.10 NG/ML 0.98 NG/ML Activated Partial Thromboplast Time 35.9 SEC 43.4 SEC Lactic Acid Level 2.7 mmol/L White Blood Count 17.1 TH/MM3 Red Blood Count 3.29 MIL/MM3 Hemoglobin 9.4 GM/DL Hematocrit 28.6 % Mean Corpuscular Volume 87.1 FL Mean Corpuscular Hemoglobin 28.6 PG Mean Corpuscular Hemoglobin Concent 32.8 % Red Cell Distribution Width 16.5 % Platelet Count 218 TH/MM3 Mean Platelet Volume 9.7 FL Neutrophils (%) (Auto) 87.5 % Lymphocytes (%) (Auto) 7.8 % Monocytes (%) (Auto) 4.6 % Eosinophils (%) (Auto) 0.0 % Basophils (%) (Auto) 0.1 % Neutrophils # (Auto) 14.9 TH/MM3 Lymphocytes # (Auto) 1.3 TH/MM3 Monocytes # (Auto) 0.8 TH/MM3 Eosinophils # (Auto) 0.0 TH/MM3 Basophils # (Auto) 0.0 TH/MM3 CBC Comment DIFF FINAL Differential Comment Blood Urea Nitrogen 37 MG/DL Creatinine 0.95 MG/DL Random Glucose 135 MG/DL Calcium Level 7.6 MG/DL Phosphorus Level 3.6 MG/DL Magnesium Level 2.4 MG/DL Sodium Level 141 MEQ/L Potassium Level 4.5 MEQ/L Chloride Level 110 MEQ/L Carbon Dioxide Level 21.8 MEQ/L Anion Gap 9 MEQ/L Estimat Glomerular Filtration Rate 81 ML/MIN Assessment and Plan Problem List: (1) Mitral regurgitation ICD Codes: I34.0 - Nonrheumatic mitral (valve) insufficiency (2) NSTEMI (non-ST elevated myocardial infarction) ICD Codes: I21.4 - Non-ST elevation (NSTEMI) myocardial infarction Status: Acute (3) Hx of CABG ICD Codes: Z95.1 - Presence of aortocoronary bypass graft (4) Anemia ICD Codes: D64.9 - Anemia, unspecified (5) DM (6) PVD (peripheral vascular disease) ICD Codes: I73.9 - Peripheral vascular disease, unspecified (7) Shortness of breath ICD Codes: R06.02 - Shortness of breath Status: Acute (8) Tobacco abuse ICD Codes: Z72.0 - Tobacco abuse Status: Chronic Assessment and Plan 1) EF 35-40% with severe MR Huge change compared to previous Will need to under cardiac catheterization then consideration of possible repeat open heart for MV repair? 2) SOB due to CHF from MR 3) Attempt to diuresis as possible Anupam Richter DO Jun 23, 2017 13:01
[2017-06-23 15:26] LABS: APTT (PATIENT) 28.7 SEC (24.3-30.1)
[2017-06-23] MEDS: AZITHROMYCIN INJ 500 MG in SODIUM CHLOR 0.9% 250 ML INJ 250 ML IV SCH (17:50)
[2017-06-23] MEDS: ALPRAZolam 0.5 MG TAB PO PRN (17:50)
[2017-06-23] MEDS: ACETAMINOPHEN 325 MG TAB PO PRN (17:51)
[2017-06-23] MEDS: NORTRIPTYLINE HCL 25 MG CAP PO SCH (21:20)
[2017-06-23] MEDS: ATORVASTATIN 80 MG TAB PO SCH (21:20)
[2017-06-23 23:27] LABS: APTT (PATIENT) 56.4 SEC (24.3-30.1)
[2017-06-23] MEDS ORDERED: PHARMACY ORDERED LAB ONE (23:45)
[2017-06-24] VITALS (14 sets, daily range): BP systolic 86–128; BP diastolic 55–80; PULSE 76–98; RESP 15–25; TEMP 97–98.8; O2SAT 91–100
[2017-06-24] MEDS: RESP: ALBUTEROL 2.5 MG/IPRATROPIUM 0.5 MG NEB (SCH) INH ×6 (00:19→20:00)
[2017-06-24] MEDS: OXACILLIN INJ 2 GM in SODIUM CHLORIDE 0.9% INJ 100 ML IV SCH ×6 (01:20→20:34)
[2017-06-24] MEDS: ACETAMINOPHEN/HYDROcodone 325 MG/10 MG TAB PO PRN ×4 (01:31→20:45)
[2017-06-24] MEDS: INSULIN NovoLIN REGULAR SUPPLEMENTAL SCALE SQ SCH ×5 (01:35→20:34)
[2017-06-24] MEDS: ALPRAZolam 0.5 MG TAB PO PRN ×3 (01:35→20:45)
[2017-06-24] MEDS ORDERED: PHARMACY ORDERED LAB ONE (01:45)
[2017-06-24] MEDS: methylPREDNISolone SOD SUCC 40 MG/1 ML VIAL IV PUSH SCH ×2 (03:00→15:09)
[2017-06-24] MEDS: CHLORHEXIDINE GLUCONATE 2 % 1 PACK (2 CLOTHS) TOP SCH (04:00)
[2017-06-24 05:03] LABS: AUTOMATED NEUTROPHIL # 10.4 TH/MM3 (1.8-7.7); BASOPHIL % 0.2 % (0.0-2.0); EOSINOPHIL % 0.1 % (0.0-4.0); HEMATOCRIT 29.4 % (39.0-51.0); HEMO FLAGS DIFF FINAL; LYMPH % 12.1 % (9.0-44.0); LYMPHOCYTE # 1.5 TH/MM3 (1.0-4.8); MEAN CELL VOLUME 87.2 FL (80.0-100.0); MEAN CORPUSCULAR HEMOGLOBIN 27.3 PG (27.0-34.0); MEAN CORPUSCULAR HGB CONC 31.3 % (32.0-36.0); MONO % 6.4 % (0.0-8.0); NEUT % 81.2 % (16.0-70.0); PLATELET COUNT 209 TH/MM3 (150-450); RED BLOOD COUNT 3.37 MIL/MM3 (4.50-5.90); RED CELL DISTRIBUTION WIDTH 16.3 % (11.6-17.2); WHITE BLOOD COUNT 12.8 TH/MM3 (4.0-11.0)
[2017-06-24 05:19] LABS: APTT (PATIENT) 50.9 SEC (24.3-30.1)
[2017-06-24 05:38] LABS: BICARBONATE 23.6 MEQ/L (21.0-32.0)
[2017-06-24] MEDS: LEVOTHYROXINE SODIUM 100 MCG TAB PO SCH (06:00)
[2017-06-24] MEDS: HEPARIN-D5W 25,000 U/250 ML 250 ML IV PRN (06:20)
[2017-06-24 07:16] LABS: BLOOD GAS BASE EXCESS -1.2 mmol/L (-2-2); BLOOD GAS CARBOXYHEMOGLOBIN 1.2 % (0-4); BLOOD GAS HCO3 23 mmol/L (22-26); BLOOD GAS METHEMOGLOBIN 1.1 % (0-2); BLOOD GAS O2 HGB SATURATION 89 % (90-100); BLOOD GAS OXYGEN CONTENT 11.9 Vol % (12.0-20.0); BLOOD GAS PCO2 38 mmHg (38-42); BLOOD GAS PO2 64 mmHg (61-120); BLOOD GAS TOTAL HGB 9.5 G/DL (12.0-16.0); CRITICAL VALUE YES; TEMP CORR TO 98.6
[2017-06-24 07:17] LABS: DRAW SITE RT RADIAL; NUMBER OF ARTERIAL PUNCTURES 1; OXYGEN DEVICE PARTIAL REBREATHER; STAT YES; ULNAR PULSE PRESENT
--- NOTE | 2017-06-24 08:08 | HHI.CCPN ---
Subjective Remarks/Hospital Course 62-year-old male with PMH of DM, lifelong smoker presents via EMS for evaluation of respiratory distress. Per EMS the patient's O2 sats was in the 70s on arrival. He received 250 of Solu-Medrol and 2 albuterol treatments en route. Upon arrival to emergency department the CPAP was applied with some improvement. On my evaluation patient is in moderate respiratory distress on facemask nonrebreather. He states his cough is nonproductive. He is unable to provide much other history due to respiratory distress.. 06/21: O2 sats in the high 90s today. Patient continues to demonstrate labored breathing. On my evaluation he is in mild respiratory distress and on a facemask nonrebreather. 06/22 Patient is on BIPAP 04/19 with 40% FIO2. Started on Heparin drip last night for increase trop ( 4.26 from 0.08) on insulin drip 2units/hr. Afebrile. 06/23 Patient was on BIPAP overnight now on partial rebreather, Remains on Heparin drip. 06/24 Patient is lying in bed in mild resp distresss, on partial rebreather. Afebrile. On Heparin drip Objective Vital Signs Date Time Temp Pulse Resp B/P (MAP) Pulse Ox O2 Delivery O2 Flow Rate FiO2 06/24/17 06:00 79 06/24/17 04:00 98.6 22 120/73 (89) 91 06/23/17 21:30 30 06/23/17 21:08 Partial Rebreather 12.00 Intake and Output 06/24/17 06/24/17 06/25/17 08:00 16:00 00:00 Intake Total 730 ml Output Total 900 ml Balance -170 ml Result Diagram: 06/24/17 0455 06/24/17 0455 Other Results Laboratory Tests Test 06/23/17 14:49 06/23/17 22:46 06/24/17 04:55 06/24/17 07:10 Activated Partial Thromboplast Time 28.7 SEC 56.4 SEC 50.9 SEC White Blood Count 12.8 TH/MM3 Red Blood Count 3.37 MIL/MM3 Hemoglobin 9.2 GM/DL Hematocrit 29.4 % Mean Corpuscular Volume 87.2 FL Mean Corpuscular Hemoglobin 27.3 PG Mean Corpuscular Hemoglobin Concent 31.3 % Red Cell Distribution Width 16.3 % Platelet Count 209 TH/MM3 Mean Platelet Volume 9.4 FL Neutrophils (%) (Auto) 81.2 % Lymphocytes (%) (Auto) 12.1 % Monocytes (%) (Auto) 6.4 % Eosinophils (%) (Auto) 0.1 % Basophils (%) (Auto) 0.2 % Neutrophils # (Auto) 10.4 TH/MM3 Lymphocytes # (Auto) 1.5 TH/MM3 Monocytes # (Auto) 0.8 TH/MM3 Eosinophils # (Auto) 0.0 TH/MM3 Basophils # (Auto) 0.0 TH/MM3 CBC Comment DIFF FINAL Differential Comment Blood Urea Nitrogen 34 MG/DL Creatinine 0.97 MG/DL Random Glucose 111 MG/DL Calcium Level 7.9 MG/DL Sodium Level 140 MEQ/L Potassium Level 4.0 MEQ/L Chloride Level 108 MEQ/L Carbon Dioxide Level 23.6 MEQ/L Anion Gap 8 MEQ/L Estimat Glomerular Filtration Rate 79 ML/MIN Blood Gas Puncture Site RT RADIAL Blood Gas Patient Temperature 98.6 Blood Gas HCO3 23 mmol/L Blood Gas Base Excess -1.2 mmol/L Blood Gas Oxygen Saturation 89 % Arterial Blood pH 7.40 Arterial Blood Partial Pressure CO2 38 mmHg Arterial Blood Partial Pressure O2 64 mmHg Arterial Blood Oxygen Content 11.9 Vol % Arterial Blood Carboxyhemoglobin 1.2 % Arterial Blood Methemoglobin 1.1 % Blood Gas Hemoglobin 9.5 G/DL Oxygen Delivery Device PARTIAL REBREATHER Imaging Last Impressions Chest X-Ray 06/21/17 0000 Signed Impressions: Service Date/Time: June 10:00 - CONCLUSION: 1. Improved positive fluid balance. 2. Stable small bilateral pleural effusions and associated bilateral lower lung zone airspace disease, presumably compressive atelectasis. Varun De Paz MD Objective Remarks GENERAL: Elderly appearing male in mild respiratory distress, labored breathing. SKIN: Warm and dry. HEAD: Normocephalic. EYES: No scleral icterus. No injection or drainage. NECK: Supple, trachea midline. No JVD or lymphadenopathy. CARDIOVASCULAR: Regular rate and rhythm without murmurs, gallops, or rubs. RESPIRATORY: O2 sat 98%, O2 sat dropped slowly to 94% without facemask, Labored breathing, Breath sounds equal and clear bilaterally. Some accessory muscle use. occasional fine rhonchi of the left lung lobes GASTROINTESTINAL: Abdomen soft, non-tender, nondistended. MUSCULOSKELETAL: No cyanosis, or edema. BACK: Nontender without obvious deformity. 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 [place]/ Xanax prn for anxiety/ pain CV: Monitor HR and BP keep MAP over 65 On Coreg 6.25mg BID, Aspirin, Plavix, Lipitor. Add Lisinopril 2.5mg daily Continue with Heparin drip, monitor trop( trending down). Cards is following-Dr. Richter Echo showed EF 35-40%, severe MR. Will likely need cardiac cath discussed with Dr. Richter 06/23 Pulm: Wean down oxygen as kimmy keep sat >92% IV steroids: solumedrol 40mg IV q12h Bronchodilators, NIPPV PRN for resp distress, IS Pulm is following- Dr. Slaughter Check CXR and ABG GI/liver: On PO diet : Monitor renal function, electrolytes replacement per protocol. On Lasix 40mg daily ID: Continue abx per ID ( Oxacillin) monitor for signs of infections ( Fever, WBC) BC 06/20 GPC/ staph Aureus , BC 06/22: No growth so far Strep pneumonia and legionella urinary Ag negative 06/20 06/20 sputum: normal resp luz. Endo: DM2, hypothyroid On SSI Cont levothyroxine 100 daily heme: Monitor CBC, coags- patient is on heparin drip. Pain Management: Cont Lyrica 100mg TID and Nortriptyline HS (home med) Tylenol 650mg q6 PRN pain. [place] when necessary DVT GI prophylaxis - Teds SCDs - Subcutaneous heparin drip - Prevacid 30 mg daily for GI prophylaxis Level 3 Frank Castaneda MD Jun 24, 2017 08:08
--- NOTE | 2017-06-24 08:50 | RADRPT ---
EXAM DATE/TIME: 06/24/2017 08:13 [place] COMPARISON: No previous studies available for comparison. INDICATIONS : Dyspnea. MEDICAL HISTORY : Peripheral vascular disease. Myocardial infarction. Hypercholesterolemia. Thyroid disease. Neurop athy. Hypoglycemia. Seizures. Numbness. Coronaryartery disease. Hyperlipidemia. HTN. GERD. Arthritis. Diabetes. Hydroceles.artery disease. Hyperlipidemia. HTN. GERD. Arthritis. Diabetes. Hydroceles. SURGICAL HISTORY : Tonsillectomy. Appendectomy. CABG. Thyroid disease. NeurSeizures. Numbness. Coronary artery disease. Hyperlipidemia. HTN. GERD.opathy. Hypoglycemia.Arthritis. Diabetes. Hydroceles. Depression. Anxiety. Tobacco use Anticoagulant therapy. Angioplasty. ENCOUNTER: Subsequent ACUITY: 3 days PAIN SCORE: 0/10 LOCATION: Bilateral chest FINDINGS: There is worsening bilateral airspace disease, diffuse on the left an upper lobe predominant on the r ight. Small right and [id number] left pleural effusions are also present. No pneumothorax seen . Heart size stable, within normal limits. Patient has had previous median sternotomy and CABG. CONCLUSION: Worsening bilateral infiltrates. Ramon Gale MD on June 24, 2017 at 8:48 Board Certified Radiologist. This report was verified electronically.
[2017-06-24] MEDS: SODIUM CHLORIDE 0.9% FLUSH 10 ML FLUSH IV FLUSH SCH ×2 (08:54→20:35)
[2017-06-24] MEDS: CARVEDILOL 6.25 MG TAB PO SCH ×2 (08:54→20:35)
[2017-06-24] MEDS: FUROSEMIDE 40 MG/4 ML VIAL IV PUSH SCH (08:54)
[2017-06-24] MEDS: PREGABALIN 100 MG CAP PO SCH ×3 (08:54→18:00)
[2017-06-24] MEDS: CLOPIDOGREL 75 MG TAB PO SCH (08:55)
[2017-06-24] MEDS: INSULIN DETEMIR 100 UNITS/ML VIAL SQ SCH ×2 (08:55→20:34)
[2017-06-24] MEDS: ASPIRIN EC 81 MG TABEC PO SCH (08:55)
[2017-06-24] MEDS: DOCUSATE SODIUM 50 MG/SENNA 8.6 MG TAB PO SCH ×2 (08:55→20:35)
[2017-06-24] MEDS: LISINOPRIL 5 MG TAB PO SCH (08:55)
[2017-06-24] MEDS: CYANOCOBALAMIN 1,000 MCG TAB PO SCH (08:55)
[2017-06-24] MEDS: amLODIPine BESYLATE 5 MG TAB PO SCH (08:55)
--- NOTE | 2017-06-24 10:52 | PD.CARD.PN ---
Subjective Subjective Remarks SOB, no chest pain Now on NRB, doing better overall Objective Medications Current Medications Medications (Trade) Dose Ordered Sig/Nuzhat Route Start Time Stop Time Status Last Admin (Norvasc) 5 mg DAILY PO 06/21/17 09:00 06/24/17 08:55 (Ecotrin Ec) 81 mg DAILY PO 06/21/17 09:00 06/24/17 08:55 (Lipitor) 80 mg HS PO 06/20/17 21:00 06/23/17 21:20 (Coreg) 6.25 mg BID PO 06/20/17 21:00 06/24/17 08:54 (Plavix) 75 mg DAILY PO 06/21/17 09:00 06/24/17 08:55 (Synthroid) 100 mcg DAILY@06 PO 06/21/17 06:00 06/24/17 06:00 (Pamelor) 75 mg HS PO 06/20/17 21:00 06/23/17 21:20 (Lyrica) 100 mg TID PO 06/21/17 09:00 06/24/17 08:54 (Vitamin B12) 1,000 mcg DAILY PO 06/21/17 09:00 06/24/17 08:55 (NS Flush) 2 ml UNSCH PRN IV FLUSH 06/20/17 19:00 (NS Flush) 2 ml BID IV FLUSH 06/20/17 21:00 06/24/17 08:54 (Tylenol) 650 mg Q6H PRN PO 06/20/17 19:00 06/23/17 17:51 (Zofran Inj) 4 mg Q6H PRN IV PUSH 06/20/17 19:00 (Duoneb Neb) 1 ampule Q4HR NEB INH 06/20/17 20:00 06/24/17 06:50 (Duoneb Neb) 1 ampule Q2HR NEB PRN INH 06/20/17 19:00 Miscellaneous Information 1 Q361D XX 06/20/17 19:00 (Chlorhexidine 2% Cloth) 3 pack Taper DAILY@04 TOP 06/21/17 04:00 06/17/18 03:59 06/24/17 04:00 (Chlorhexidine 2% Cloth) 3 pack UNSCH PRN TOP 06/20/17 19:00 (Afua-Colace) 1 tab BID PO 06/20/17 21:00 06/24/17 08:55 (Milk Of Magnesia Liq) 30 ml Q12H PRN PO 06/20/17 19:00 (Senokot) 17.2 mg Q12H PRN PO 06/20/17 19:00 (Dulcolax Supp) 10 mg DAILY PRN RECTAL 06/20/17 19:00 (Lactulose Liq) 30 ml DAILY PRN PO 06/20/17 19:00 Azithromycin 500 mg/Sodium Chloride 250 ml @ 250 mls/hr Q24H IV 06/21/17 18:00 06/23/17 17:50 (Melrose 10-325 Mg) 1 tab Q6H PRN PO 06/21/17 12:15 06/24/17 06:38 (Xanax) 0.5 mg Q6H PRN PO 06/21/17 12:15 06/24/17 01:35 (Heparin Inj) 5,000 units UNSCH PRN IV PUSH 06/22/17 08:15 (Heparin Inj) 2,500 units UNSCH PRN IV PUSH 06/22/17 08:15 06/23/17 17:59 Heparin Sodium/ Dextrose 250 ml @ 8 mls/hr TITRATE PRN IV 06/22/17 02:15 06/24/17 06:20 (SoluMEDROL INJ) 40 mg Q12H IV PUSH 06/22/17 15:00 06/24/17 03:00 (D50w (Vial) Inj) 50 ml UNSCH PRN IV PUSH 06/22/17 08:30 (Glucagon Inj) 1 mg UNSCH PRN OTHER 06/22/17 08:30 (NovoLIN R SUPPLEMENTAL SCALE) 1 Q4H SQ 06/22/17 09:00 06/24/17 01:35 (Levemir Inj) 5 units Q12HR SQ 06/22/17 09:00 06/24/17 08:55 Oxacillin Sodium 2 gm/Sodium Chloride 100 ml @ 200 mls/hr Q4H IV 06/22/17 17:00 06/24/17 08:53 (Lasix Inj) 40 mg DAILY IV PUSH 06/24/17 09:00 06/24/17 08:54 (Prinivil) 5 mg DAILY PO 06/24/17 09:00 06/24/17 08:55 Vital Signs / I&O Vital Signs Date Time Temp Pulse Resp B/P (MAP) Pulse Ox O2 Delivery O2 Flow Rate FiO2 06/24/17 06:00 79 06/24/17 04:00 79 06/24/17 04:00 98.6 79 22 120/73 (89) 91 06/24/17 02:35 16 06/24/17 02:00 78 06/24/17 01:00 98.3 78 15 86/55 (65) 91 06/24/17 00:00 76 06/23/17 22:00 86 06/23/17 21:30 99 30 06/23/17 21:08 99 Partial Rebreather 12.00 06/23/17 20:00 92 06/23/17 20:00 98.6 92 24 121/79 (93) 98 06/23/17 19:00 98 Partial Non-Rebreather 06/23/17 18:51 21 06/23/17 18:51 21 06/23/17 18:00 99 06/23/17 16:00 87 06/23/17 16:00 98.1 87 16 125/76 (92) 99 06/23/17 15:51 99 55 06/23/17 14:00 90 06/23/17 12:00 98.1 88 21 120/68 (85) 100 06/23/17 12:00 88 I/O 06/23/17 06/23/17 06/23/17 06/24/17 06/24/17 06/24/17 07:00 15:00 23:00 07:00 15:00 23:00 Intake Total 470 ml 357 ml 645 ml 730 ml Output Total 900 ml 2100 ml 900 ml Balance -430 ml 357 ml -1455 ml -170 ml Intake Oral 120 ml 400 ml 630 ml IV Total 350 ml 357 ml 245 ml 100 ml Output Urine Total 900 ml 2100 ml 900 ml # Bowel Movements 0 0 0 Physical Exam GENERAL: NAD, AAOx3 SKIN: Warm and dry. HEAD: Atraumatic. Normocephalic. EYES: Pupils equal and round. No scleral icterus. No injection or drainage. ENT: No nasal bleeding or discharge. Mucous membranes pink and moist. NECK: Trachea midline. No JVD. CARDIOVASCULAR: Regular rate and rhythm. 2/6 holosystolic murmur noted at the apex RESPIRATORY: No accessory muscle use. Decreased breath sounds bilaterally GASTROINTESTINAL: Abdomen soft, non-tender, nondistended. Hepatic and splenic margins not palpable. MUSCULOSKELETAL: Extremities without clubbing, cyanosis, or edema. RLE with AKA NEUROLOGICAL: Awake and alert. No obvious cranial nerve deficits. Motor grossly within normal limits. Five out of 5 muscle strength in the arms and legs. Normal speech. PSYCHIATRIC: Appropriate mood and affect; insight and judgment normal. Laboratory Laboratory Tests Test 06/23/17 14:49 06/23/17 22:46 06/24/17 04:55 06/24/17 07:10 Activated Partial Thromboplast Time 28.7 SEC 56.4 SEC 50.9 SEC White Blood Count 12.8 TH/MM3 Red Blood Count 3.37 MIL/MM3 Hemoglobin 9.2 GM/DL Hematocrit 29.4 % Mean Corpuscular Volume 87.2 FL Mean Corpuscular Hemoglobin 27.3 PG Mean Corpuscular Hemoglobin Concent 31.3 % Red Cell Distribution Width 16.3 % Platelet Count 209 TH/MM3 Mean Platelet Volume 9.4 FL Neutrophils (%) (Auto) 81.2 % Lymphocytes (%) (Auto) 12.1 % Monocytes (%) (Auto) 6.4 % Eosinophils (%) (Auto) 0.1 % Basophils (%) (Auto) 0.2 % Neutrophils # (Auto) 10.4 TH/MM3 Lymphocytes # (Auto) 1.5 TH/MM3 Monocytes # (Auto) 0.8 TH/MM3 Eosinophils # (Auto) 0.0 TH/MM3 Basophils # (Auto) 0.0 TH/MM3 CBC Comment DIFF FINAL Differential Comment Blood Urea Nitrogen 34 MG/DL Creatinine 0.97 MG/DL Random Glucose 111 MG/DL Calcium Level 7.9 MG/DL Sodium Level 140 MEQ/L Potassium Level 4.0 MEQ/L Chloride Level 108 MEQ/L Carbon Dioxide Level 23.6 MEQ/L Anion Gap 8 MEQ/L Estimat Glomerular Filtration Rate 79 ML/MIN Blood Gas Puncture Site RT RADIAL Blood Gas Patient Temperature 98.6 Blood Gas HCO3 23 mmol/L Blood Gas Base Excess -1.2 mmol/L Blood Gas Oxygen Saturation 89 % Arterial Blood pH 7.40 Arterial Blood Partial Pressure CO2 38 mmHg Arterial Blood Partial Pressure O2 64 mmHg Arterial Blood Oxygen Content 11.9 Vol % Arterial Blood Carboxyhemoglobin 1.2 % Arterial Blood Methemoglobin 1.1 % Blood Gas Hemoglobin 9.5 G/DL Oxygen Delivery Device PARTIAL REBREATHER Imaging Last 24 hours Impressions Chest X-Ray 06/24/17 0000 Signed Impressions: Service Date/Time: Saturday, June 24, 2017 08:13 - CONCLUSION: Worsening bilateral infiltrates. Ramon Gale MD Assessment and Plan Problem List: (1) Mitral regurgitation ICD Codes: I34.0 - Nonrheumatic mitral (valve) insufficiency (2) NSTEMI (non-ST elevated myocardial infarction) ICD Codes: I21.4 - Non-ST elevation (NSTEMI) myocardial infarction Status: Acute (3) Hx of CABG ICD Codes: Z95.1 - Presence of aortocoronary bypass graft (4) Anemia ICD Codes: D64.9 - Anemia, unspecified (5) DM (6) PVD (peripheral vascular disease) ICD Codes: I73.9 - Peripheral vascular disease, unspecified (7) Shortness of breath ICD Codes: R06.02 - Shortness of breath Status: Acute (8) Tobacco abuse ICD Codes: Z72.0 - Tobacco abuse Status: Chronic Assessment and Plan 1) EF 35-40% with severe MR Huge change compared to previous Will need to under diagnostic cardiac catheterization then consideration of possible repeat open heart for MV repair vs. mitral clip? Will also need YURIY for bacteremia with such a change in MR 2) SOB due to CHF from MR 3) Attempt to diuresis as possible 4) Bacteremia 4/4 bottles positive ID following Anupam Richter DO Jun 24, 2017 10:52
--- NOTE | 2017-06-24 10:54 | RADRPT ---
EXAM DATE/TIME: 06/24/2017 10:33 [facility] COMPARISON: CT THORAX W/O CONTRAST, April 17, 2017, 1:29. CT ABDOMEN & PELVIS W CONTRAST, June 21, 2015, 9 :19. INDICATIONS : Infiltrates. RADIATION DOSE: 8.53 CTDIvol (mGy) MEDICAL HISTORY : Seizures. Cardiovascular disease Hypertension. GERD; Diabetes, Peripheal neuropathy SURGICAL HISTORY : CABG Appendectomy. ENCOUNTER: Initial ACUITY: 2 days PAIN SCALE: 2/10 LOCATION: chest TECHNIQUE: Volumetric scanning of the chest was performed. Using automated exposure control and adjustment of t he mA and/or kV according to patient size, radiation dose was kept as low as reasonably achievable to obtain optimal diagnostic quality images. DICOM format image data is available electronically for r eview and comparison. Follow-up recommendations for detected pulmonary nodules are based at a minimum on nodule size and pa tient risk factors according to Fleischner Society Guidelines. FINDINGS: Extensive interstitial and alveolar infiltrates have developed in both upper lobes. There are small t o moderate right and moderate left pleural effusions with dependent sludge compressive atelectasis of both bases. No pneumothorax. Median sternotomy and CABG changes are again noted. Heart size stable, within normal limits. I don't see any lymphadenopathy. Sclerotic focus of T10 vertebral body long-term stable. No acute bony abnormality demonstrated. CONCLUSION: 1. Acute, upper lobe predominant infiltrates, most likely infectious or inflammatory. A somewhat atyp ical distribution of pulmonary edema would also be conceivable. 2. Small to moderate right and moderate left pleural effusions have developed as well and with associ ated left greater than right basilar atelectasis. Ramon Gale MD on June 24, 2017 at 10:49 Board Certified Radiologist. This report was verified electronically.
[2017-06-24] MEDS: AZITHROMYCIN INJ 500 MG in SODIUM CHLOR 0.9% 250 ML INJ 250 ML IV SCH (18:12)
[2017-06-24] MEDS: NORTRIPTYLINE HCL 25 MG CAP PO SCH (20:34)
[2017-06-24] MEDS: ATORVASTATIN 80 MG TAB PO SCH (20:34)
[2017-06-25] VITALS (12 sets, daily range): BP systolic 116–168; BP diastolic 65–92; PULSE 78–105; RESP 16–29; TEMP 98.3–98.8; O2SAT 89–100
[2017-06-25] MEDS: OXACILLIN INJ 2 GM in SODIUM CHLORIDE 0.9% INJ 100 ML IV SCH ×6 (01:00→20:57)
[2017-06-25] MEDS: INSULIN NovoLIN REGULAR SUPPLEMENTAL SCALE SQ SCH ×6 (01:00→21:10)
[2017-06-25] MEDS: methylPREDNISolone SOD SUCC 40 MG/1 ML VIAL IV PUSH SCH ×2 (03:00→14:58)
[2017-06-25] MEDS: CHLORHEXIDINE GLUCONATE 2 % 1 PACK (2 CLOTHS) TOP SCH (04:00)
[2017-06-25] MEDS: LEVOTHYROXINE SODIUM 100 MCG TAB PO SCH (04:55)
[2017-06-25] MEDS: HEPARIN-D5W 25,000 U/250 ML 250 ML IV PRN (04:57)
[2017-06-25] MEDS: RESP: ALBUTEROL 2.5 MG/IPRATROPIUM 0.5 MG NEB (SCH) INH ×4 (07:58→21:34)
--- NOTE | 2017-06-25 08:04 | HHI.CCPN ---
Subjective Remarks/Hospital Course 62-year-old male with PMH of DM, lifelong smoker presents via EMS for evaluation of respiratory distress. Per EMS the patient's O2 sats was in the 70s on arrival. He received 250 of Solu-Medrol and 2 albuterol treatments en route. Upon arrival to emergency department the CPAP was applied with some improvement. On my evaluation patient is in moderate respiratory distress on facemask nonrebreather. He states his cough is nonproductive. He is unable to provide much other history due to respiratory distress.. 06/21: O2 sats in the high 90s today. Patient continues to demonstrate labored breathing. On my evaluation he is in mild respiratory distress and on a facemask nonrebreather. 06/22 Patient is on BIPAP 04/19 with 40% FIO2. Started on Heparin drip last night for increase trop ( 4.26 from 0.08) on insulin drip 2units/hr. Afebrile. 06/23 Patient was on BIPAP overnight now on partial rebreather, Remains on Heparin drip. 06/24 Patient is lying in bed in mild resp distresss, on partial rebreather. Afebrile. On Heparin drip 06/25 No events overnight. Afebrile. On BIPAP. For possible cath today Objective Vital Signs Date Time Temp Pulse Resp B/P (MAP) Pulse Ox O2 Delivery O2 Flow Rate FiO2 06/25/17 05:11 97 45 06/25/17 04:00 98.6 87 18 132/65 (87) 06/24/17 20:02 Nasal Cannula 2.00 Intake and Output 06/25/17 06/25/17 06/26/17 08:00 16:00 00:00 Intake Total 730 ml Output Total 1200 ml Balance -470 ml Result Diagram: 06/24/17 0455 06/24/17 0455 Imaging Last Impressions Chest X-Ray 06/24/17 0000 Signed Impressions: Service Date/Time: Saturday, June 24, 2017 08:13 - CONCLUSION: Worsening bilateral infiltrates. Ramon Gale MD Chest CT 06/24/17 0000 Signed Impressions: Service Date/Time: Saturday, June 24, 2017 10:33 - CONCLUSION: 1. Acute, upper lobe predominant infiltrates, most likely infectious or inflammatory. A somewhat atypical distribution of pulmonary edema would also be conceivable. 2. Small to moderate right and moderate left pleural effusions have developed as well and with associated left greater than right basilar atelectasis. Ramon Gale MD Objective Remarks GENERAL: Elderly appearing male in mild respiratory distress SKIN: Warm and dry. HEAD: Normocephalic. EYES: No scleral icterus. No injection or drainage. NECK: Supple, trachea midline. No JVD or lymphadenopathy. CARDIOVASCULAR: Regular rate and rhythm without murmurs, gallops, or rubs. RESPIRATORY: O2 sat 98%, O2 sat dropped slowly to 94% without facemask, Labored breathing, Breath sounds equal and clear bilaterally. Some accessory muscle use. occasional fine rhonchi of the left lung lobes GASTROINTESTINAL: Abdomen soft, non-tender, nondistended. MUSCULOSKELETAL: No cyanosis, or edema. BACK: Nontender without obvious deformity. 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 [place]/ Xanax prn for anxiety/ pain CV: Monitor HR and BP keep MAP over 65 On Coreg 6.25mg BID, Aspirin, Plavix, Lipitor. Lisinopril 2.5mg daily Continue with Heparin drip,. Cards is following-Dr. Richter Echo showed EF 35-40%, severe MR. For possible cath today Pulm: Wean down oxygen as kimmy keep sat >92% IV steroids: solumedrol 40mg IV q12h Bronchodilators, NIPPV PRN for resp distress, IS Pulm is following- Dr. Slaughter Will proceed with US guided thoracentesis send pleural fluid for culture /analysis GI/liver: NPO for possible cath today : Monitor renal function, electrolytes replacement per protocol. On Lasix 40mg daily ID: Continue abx per ID ( Oxacillin) monitor for signs of infections ( Fever, WBC) BC 12/ GPC/ staph Aureus , BC 12/8: No growth so far Strep pneumonia and legionella urinary Ag negative 06/20 06/20 sputum: normal resp luz. Endo: DM2, hypothyroid On SSI Cont levothyroxine 100 daily heme: Monitor CBC, coags- patient is on heparin drip. Pain Management: Cont Lyrica 100mg TID and Nortriptyline HS (home med) Tylenol 650mg q6 PRN pain. [place] when necessary DVT GI prophylaxis - Teds SCDs - Subcutaneous heparin drip - Prevacid 30 mg daily for GI prophylaxis Level 3 Frank Castaneda MD Jun 25, 2017 08:04
[2017-06-25] MEDS: INSULIN DETEMIR 100 UNITS/ML VIAL SQ SCH ×2 (09:00→21:10)
[2017-06-25] MEDS: CLOPIDOGREL 75 MG TAB PO SCH (09:00)
[2017-06-25] MEDS ORDERED: NITROGLYCERIN INJ 5 ML ONE (09:59)
[2017-06-25] MEDS ORDERED: VERAPAMIL HCL 5 MG/2 ML VIAL ONE (09:59)
[2017-06-25] MEDS ORDERED: HEPARIN SODIUM - IV 10,000 UNITS/10 ML VIAL ONE (09:59)
[2017-06-25] MEDS ORDERED: HEPARIN-NS/PF INJ 1,000 ML ONE (09:59)
[2017-06-25] MEDS ORDERED: FAMOTIDINE 20 MG/2 ML VIAL IV ONE (10:45)
--- NOTE | 2017-06-25 11:02 | CATHPROC ---
[employer] HIS Report Study Information Study Number Admission Scheduled Start Study Start [id number] Jun 20 2017 5:28PM 06/25/2017 Jun 25 2017 9:57AM [facility] Service Cardiac Catheterization Admit Source Facility Department Emergency department [facility] - Broadcast Traffic Coordinator Physician and Clinical Staff Initial Anupam Wyman Rda Lucille Miguel BSN Other cathlab, cathlab Recorder Alexander Vasquez RCIS(BS) Scrub Gloria Ortega,RT(R) Procedures Performed Procedure Location (Site) Vessel Name Coronary Angiograms LCA Left Coronary Coronary Angiograms RCA Right Coronary Coronary Angiograms OCONNELL-LAD Left Coronary Coronary Angiograms SVG-OM CIRC Coronary Angiograms SVG-RCA Right Coronary L Heart Cath Equipment Time Strainer Tender Description Size Mfg Part Number Used/Scraped TRANSDUCER, TRUWAVE [id number] 09:57 HAHN VIRGEN * Used W/STOCKCOCK *[id number] 534-545T *[id number] 534-520T *[id number] 534-521T *[id number] 09:57 [employer] PACK, CCL CUSTOM * Used *[id number] 09:57 [employer] SUPPORT, ARTERIAL ADULT 29070 *[id number] Used BAND, RADIAL COMPRESSION TR [id number] 10:52 yaM Labs 24CM Used SHORT 24 *[id number] 09:57 [employer] WIRE, EXCHANGE 260CM 3MMJ 260CM Used *[id number] 09:57 NAMIC MANIFOLD, 4 PORT * Used *[id number] 09:57 NYCOMED OMNIPAQUE, 350 MG, 150ML 150ML [id number] Used [id number] 09:57 [facility] BLANKET,WARM AIR CCL * Used *[id number] SHEATH, FR6 TRANSRADIAL RM*[id number] 09:57 Trigemina FR 6 Used SLENDER 10CM *[id number] History: Current Medications Medication Dosage/Unit Route Frequency Last Date/Time Taken ASA PLAVIX CARVEDILOL Statins (any) LISINOPRIL LYRICA Prilosec Synthroid Insulin History: Allergies Allergy Reaction morphine STS HE BECOMES VIOLENT. UNFRACTIONATED HEPARIN PT UNSURE OF REACTION History: Risk Factors Family History of Hypertension Dyslipidemia Previous VT Previous Heart Failure Premature CAD Yes Yes No Yes No Prior Valve Prior PCI Prior CABG Prior CABGDate Surgery No No Yes 08/30/2004 Cerebrovascular Peripheral Artery Chronic Lung On Dialysis Diabetes Diabetes Therapy Disease Disease Disease No No Yes Yes Yes Insulin History: Stress Tests Stress or Imaging Studies Performed No History: VT/CV Data Previous Cath Date 04/28/2017 History: Other Current Smoker Method Quit Packs a Day Years Used Pack Years No Cigarettes 1 Years Ago 1 30 30 Labs Hgb (g/dl) Hct (%) WBC (l/cumm) Platelets (thousands) 11.60-17.00 35.00-51.00 4.00-11.00 150.00-450.00 9.2 29.4 12.8 209 Glucose (mg/dl) BUN (mg/dl) Creatinine (mg/dl) BUN:Creatinine (1:x) 74.00-106.00 7.00-18.00 0.50-1.30 10.00-20.00 111 34 0.9 37.8 Na (meq/l) K (meq/l) 136.00-145.00 3.50-5.10 140 4 INR (PTT:PT) 0.90-1.10 1.1 Troponin I (ng/ml) CPK-MB (ng/ML) 0.02-0.05 0.50-3.60 0.98 Not Drawn Medication Medication Total Dose (Bolus/Oral) Medication Total Dosage/Unit 1% XYLOCAINE 3 mL RADIAL COCKTAIL 5 mL (Bolus) Medications (Bolus/Oral) Medication Time Given Dosage/Unit Administered By Reason 06/25/2017 10:25:50 1% XYLOCAINE 3 mL Anupam Richter AM 3 mL 1% XYLOCAINE given in lab by Anupam Richter in Left Radial via Subcutaneous. 06/25/2017 10:27:31 Ntg 200mcg Verapamil 2.5mg Heparin RADIAL COCKTAIL 5 mL (Bolus) Anupam Richter AM 3000U 5 mL (Bolus) RADIAL COCKTAIL given in lab by Anupam Richter in Left Radial via Radial. Using [So lution Name]. Reason: Ntg 200mcg Verapamil 2.5mg Heparin 3000U. Medication (Drip) Medication Time Given Dosage/Unit Concentration/Unit Diluent (ml) Solutio n IV Solutions 06/25/2017 9:56:52 AM 0 mL (IV) 500 NaCl .9 Patient arrived on IV Solutions given by cathlab, cathlab in Left Antecubital via Peripheral IV. Pump /Drip Flow = 20 ml/hr using NaCl .9. Ordered by Anupam Richter Initial Case Assessment Cardiovascular HR Rhythm NIBP Chest Pain 103 stachy 168/101 0 Edema Present Skin color Skin None Normal Warm Dry Circulatory - Right Pulses Femoral 1 Scale (0,1,2,3,4,d) Circulatory - Left Pulses Femoral 1 Scale (0,1,2,3,4,d) Neurological State Oriented to time-place- Alert Moves all extremities person Respiration - General Respiration Rate SpO2 (%) O2 (lpm) (B/min) 15 94 2 Final Case Assessment Cardiovascular HR Rhythm NIBP Chest Pain 101 stachy 151/92 0 Edema Present Skin color Skin None Normal Warm Dry Circulatory - Right Pulses Femoral 1 Scale (0,1,2,3,4,d) Circulatory - Left Pulses Femoral 1 Scale (0,1,2,3,4,d) Neurological State Oriented to time-place- Alert Moves all extremities person Respiration - General Respiration Rate SpO2 (%) O2 (lpm) (B/min) 15 94 2 Chronological Log Time Study Chronological Log 9:56:40 Patient arrived via Bed. 9:56:41 Patient Name, D.O.B, / Armband Verified By R.N. 9:56:41 Consent signed by the physician and the patient and verified by the Broadcast Traffic Coordinator staff. 9:56:42 Pre-op and post- op instructions given; patient acknowledges understanding of instructions. 9:56:42 Verbal Stimulation=2 Physical Stimulation=2 Airway=2 Respiration=2 TOTAL=8. (0=absent, 1=li mited, 2=present) 9:56:43 Presedation assessment performed by Broadcast Traffic Coordinator RN. 9:56:46 Allens test performed on the left radial and ulnar artery. 9:56:47 Immediate Presedation assesment performed by physician. 9:56:47 Patient has been NPO for Less than 6Hrs. 9:56:48 Skin Breakdown- none per patient 9:56:49 Patient Warmer Placed on the Table. 9:56:49 Jennifer Prominences Protected 9:56:51 A # 20 IV was noted in the Antecubital (left). Grade = 0 Patient arrived on IV Solutions given by cathlab, cathlab in Left Antecubital via Peripheral IV . Pump/Drip Flow = 20 9:56:52 ml/hr using NaCl .9. Ordered by Anupam Richter 9:56:52 History and physical on the chart or being dictated. Vitals capture started with the following parameters, Patient=Adult, Interval=5 min, Initial Pr epnzxi=657 mmHg, 9:59:30 Deflation Rate=5 mmHg, Cuff placed on Left Arm 10:00:06 HR=88 bpm, WGQG=591/104 mmhg, SpO2=93.0 %, Resp=16 B/min, Pain=0, Adama=10, Carranza=2 10:04:52 Reference ECG taken 10:05:11 SS=822 bpm, JBUV=360/101 mmhg, SpO2=94.0 %, Resp=15 B/min, Pain=0, Adama=10, Carranza=2 Assessment: Initial Case, GL=608 BPM, Rhythm=stachy, LDFA=640/101 mmhg, Chest Pain=0, Edema=Non e, Color=Normal, Skin = Warm, Dry Right Pulses: Femoral=1 10:05:13 Left Pulses: Kleber Ped=1, Femoral=1, Radial=2 Neurological: State=Alert, Ox3, GOTTLEIB Respiration: Resp=15 B/min, SpO2=94 %, O2=2 lpm 10:10:10 SS=350 bpm, UKKE=144/97 mmhg, SpO2=94.0 %, Resp=18 B/min, Pain=0, Adama=10, Carranza=2 10:13:00 Right Radial and groin(s) prepped with 2% chlorhexidine, and draped after a 3 min. waiting time. 10:15:07 JP=796 bpm, RYSL=460/103 mmhg, SpO2=95.0 %, Resp=17 B/min, Pain=0, Adama=10, Carranza=2 10:15:48 Pressure channel 1 zeroed. 10:16:25 MD paged 10:16:57 MD responded 10:19:03 MD arrived. 10:19:07 Contrast Scanned 10:19:08 Immediate Presedation assesment performed by physician. 10:20:10 JL=297 bpm, DUIK=620/105 mmhg, SpO2=94.0 %, Resp=19 B/min, Pain=0, Adama=10, Carranza=2 Time Out. Correct patient, correct procedure, correct physician, power injector not loaded with contrast with surgical 10:24:34 team present. Time Out Concurred by MD and individual staff in procedure. 10::08 Case Start 10::08 Verbal Stimulation=2 Physical Stimulation=2 Airway=2 Respiration=2 TOTAL=8. (0=absent, 1=li mited, 2=present) 10:25:11 ER=566 bpm, ZHSA=944/102 mmhg, SpO2=96.0 %, Resp=17 B/min, Pain=0, Adama=10, Carranza=2 10:25:50 3 mL 1% XYLOCAINE given in lab by Anupam Richter in Left Radial via Subcutaneous. 10::08 Access site was left Radial Artery. A SHEATH, FR6 TRANSRADIAL SLENDER 10CM FR 6 was advanced into the Radial (left) using the Percu taneous 10:27:18 technique. 5 mL (Bolus) RADIAL COCKTAIL given in lab by Anuapm Richter in Left Radial via Radial. Usi ng [Solution Name]. 10:27:31 Reason: Ntg 200mcg Verapamil 2.5mg Heparin 3000U. A JR 4.0 INFINITI CATHETER FR 5 was advanced over a wire. OMNIPAQUE, 350 MG, 150ML 150ML was us ed for 10:28:56 injections. 10:30:14 QJ=799 bpm, GYCY=747/88 mmhg, SpO2=95.0 %, Resp=17 B/min, Pain=0, Adama=10, Carranza=2 Recorded Pressure: LV, HR=91, Condition=Condition 1 10:30:30 (Left Ventricle) LV 138/1/8 Recorded Pressure: LV, Ao, XZ=106, Condition=Condition 1 10:30:52 (Left Ventricle) LV 140/3/8, (Aorta) Ao 142/83/109 10:31:10 The RCA was injected and visualized at various angles. OMNIPAQUE, 350 MG, 150ML 150ML used . 10:31:35 The RCA was injected and visualized at various angles. OMNIPAQUE, 350 MG, 150ML 150ML used . Recorded Pressure: Ao, SM=192, Condition=Condition 1 10:34:17 (Aorta) Ao 146/87/114 10:34:20 The SVG-RCA was injected and visualized at various angles. OMNIPAQUE, 350 MG, 150ML 150ML u sed. 10:35:09 SH=329 bpm, RPAY=861/99 mmhg, SpO2=94.0 %, Resp=20 B/min, Pain=0, Adama=10, Carranza=2 After removing the current catheter a JL 4.0 INFINITI CATHETER FR 5 was advanced over a WIRE, E XCHANGE 260CM 10:35:32 3MMJ 260CM. 10:39:01 The LCA was injected and visualized at various angles. OMNIPAQUE, 350 MG, 150ML 150ML used . 10:40:08 KG=435 bpm, TMWH=222/95 mmhg, SpO2=95.0 %, Resp=19 B/min, Pain=0, Adama=10, Carranza=2 After removing the current catheter a AL 1 INFINITI CATHETER FR 5 was advanced over a WIRE, EX CHANGE 260CM 10:41:48 3MMJ 260CM. 10:45:07 CG=920 bpm, AWUP=876/99 mmhg, SpO2=96.0 %, Resp=18 B/min, Pain=0, Adama=10, Carranza=2 10:45:09 The SVG-OM was injected and visualized at various angles. OMNIPAQUE, 350 MG, 150ML 150ML u sed. After removing the current catheter a JR 4.0 INFINITI CATHETER FR 5 was advanced over a WIRE, EXCHANGE 260CM 10:45:18 3MMJ 260CM. 10:48:16 The OCONNELL-LAD was injected and visualized at various angles. OMNIPAQUE, 350 MG, 150ML 150ML used. 10:50:35 WJ=244 bpm, TOVS=739/92 mmhg, SpO2=95.0 %, Resp=17 B/min, Pain=0, Adama=10, Carranza=2 10:50:35 Catheter was removed Radial Compression Device Used. 8 mLs of air placed in BAND, RADIAL COMPRESSION TR SHORT 24 24 CM. Affected 10:52:14 hand 93 % O2 saturation. Assessment: Final Case, ID=[id number] BPM, Rhythm=stachy, TFHH=754/92 mmhg, Chest Pain=0, Edema=None, Color=Normal, Skin = Warm, Dry Right Pulses: Femoral=1 10:54:02 Left Pulses: Kleber Ped=1, Femoral=1, Radial=2 Neurological: State=Alert, Ox3, GOTTLIEB Respiration: Resp=15 B/min, SpO2=94 %, O2=2 lpm 10:54:15 Case End 10:54:27 Sterile dressing applied to site 10:54:29 No case complications noted. 10:54:29 Cine recording checked. 10:54:31 Bedside Report will be given. 10:54:31 Contrast Scanned 10:54:33 A Left Heart Cath was performed. 10:54:35 Verbal Stimulation=2 Physical Stimulation=2 Airway=2 Respiration=2 TOTAL=8. (0=absent, 1=l imited, 2=present) 10:55:09 YA=951 bpm, JAGX=019/97 mmhg, SpO2=97.0 %, Resp=17 B/min, Pain=0, Adama=10, Carranza=2 10:59:49 Vitals capture stopped. 11:01:37 Patient moved to [facility] End Study - Contrast Media Used In Study Contrast Total Opened (mL) Total Used (mL) Total Wasted (mL) Omnipaque 100 100 0 End Study - Maximum Contrast Load Max Contrast Load (mL) 366.2 End Study - Radiation Exposure Fluoro Time (minutes) 6.3 End Study - Patient Disposition Complications Transferred To Interventional Outcome No Critical Care Bed No attempt made
[2017-06-25] MEDS ORDERED: IOHEXOL 350 MG/ML 100 ML BTL (for Cath Lab) OTHER ONE (11:12)
[2017-06-25] MEDS ORDERED: MISC INFORMATION XX ONE (11:15)
[2017-06-25] MEDS: PREGABALIN 100 MG CAP PO SCH ×3 (11:52→17:31)
[2017-06-25] MEDS: DOCUSATE SODIUM 50 MG/SENNA 8.6 MG TAB PO SCH ×2 (11:53→20:56)
[2017-06-25] MEDS: amLODIPine BESYLATE 5 MG TAB PO SCH (11:53)
[2017-06-25] MEDS: LISINOPRIL 5 MG TAB PO SCH (11:54)
[2017-06-25] MEDS: CARVEDILOL 6.25 MG TAB PO SCH ×2 (11:55→20:56)
[2017-06-25] MEDS: CYANOCOBALAMIN 1,000 MCG TAB PO SCH (11:55)
[2017-06-25] MEDS: ASPIRIN EC 81 MG TABEC PO SCH (11:55)
[2017-06-25] MEDS: FUROSEMIDE 40 MG/4 ML VIAL IV PUSH SCH (11:56)
[2017-06-25] MEDS: SODIUM CHLORIDE 0.9% FLUSH 10 ML FLUSH IV FLUSH SCH ×2 (11:56→20:58)
[2017-06-25] MEDS: ACETAMINOPHEN/HYDROcodone 325 MG/10 MG TAB PO PRN ×2 (11:59→20:55)
--- NOTE | 2017-06-25 12:13 | PD.CARD.PN ---
Subjective Subjective Remarks SOB, no chest pain Doing well post-cath Objective Medications Current Medications Medications (Trade) Dose Ordered Sig/Nuzhat Route Start Time Stop Time Status Last Admin (Norvasc) 5 mg DAILY PO 06/21/17 09:00 06/25/17 11:53 (Ecotrin Ec) 81 mg DAILY PO 06/21/17 09:00 06/25/17 11:55 (Lipitor) 80 mg HS PO 06/20/17 21:00 06/24/17 20:34 (Coreg) 6.25 mg BID PO 06/20/17 21:00 06/25/17 11:55 (Plavix) 75 mg DAILY PO 06/21/17 09:00 06/24/17 08:55 (Synthroid) 100 mcg DAILY@06 PO 06/21/17 06:00 06/25/17 04:55 (Pamelor) 75 mg HS PO 06/20/17 21:00 06/24/17 20:34 (Lyrica) 100 mg TID PO 06/21/17 09:00 06/25/17 11:52 (Vitamin B12) 1,000 mcg DAILY PO 06/21/17 09:00 06/25/17 11:55 (NS Flush) 2 ml UNSCH PRN IV FLUSH 06/20/17 19:00 (NS Flush) 2 ml BID IV FLUSH 06/20/17 21:00 06/25/17 11:56 (Tylenol) 650 mg Q6H PRN PO 06/20/17 19:00 06/23/17 17:51 (Zofran Inj) 4 mg Q6H PRN IV PUSH 06/20/17 19:00 (Duoneb Neb) 1 ampule Q2HR NEB PRN INH 06/20/17 19:00 Miscellaneous Information 1 Q361D XX 06/20/17 19:00 (Chlorhexidine 2% Cloth) 3 pack Taper DAILY@04 TOP 06/21/17 04:00 06/17/18 03:59 06/25/17 04:00 (Chlorhexidine 2% Cloth) 3 pack UNSCH PRN TOP 06/20/17 19:00 (Afua-Colace) 1 tab BID PO 06/20/17 21:00 06/25/17 11:53 (Milk Of Magnesia Liq) 30 ml Q12H PRN PO 06/20/17 19:00 (Senokot) 17.2 mg Q12H PRN PO 06/20/17 19:00 (Dulcolax Supp) 10 mg DAILY PRN RECTAL 06/20/17 19:00 (Lactulose Liq) 30 ml DAILY PRN PO 06/20/17 19:00 Azithromycin 500 mg/Sodium Chloride 250 ml @ 250 mls/hr Q24H IV 06/21/17 18:00 06/24/17 18:12 (Winona 10-325 Mg) 1 tab Q6H PRN PO 06/21/17 12:15 06/25/17 11:59 (Xanax) 0.5 mg Q6H PRN PO 06/21/17 12:15 06/24/17 20:45 (SoluMEDROL INJ) 40 mg Q12H IV PUSH 06/22/17 15:00 06/25/17 03:00 (D50w (Vial) Inj) 50 ml UNSCH PRN IV PUSH 06/22/17 08:30 (Glucagon Inj) 1 mg UNSCH PRN OTHER 06/22/17 08:30 (NovoLIN R SUPPLEMENTAL SCALE) 1 Q4H SQ 06/22/17 09:00 06/25/17 09:30 (Levemir Inj) 5 units Q12HR SQ 06/22/17 09:00 06/24/17 20:34 Oxacillin Sodium 2 gm/Sodium Chloride 100 ml @ 200 mls/hr Q4H IV 06/22/17 17:00 06/25/17 11:57 (Lasix Inj) 40 mg DAILY IV PUSH 06/24/17 09:00 06/25/17 11:56 (Prinivil) 5 mg DAILY PO 06/24/17 09:00 06/25/17 11:54 (Duoneb Neb) 1 ampule QID NEB INH 06/24/17 16:00 06/25/17 07:58 Vital Signs / I&O Vital Signs Date Time Temp Pulse Resp B/P (MAP) Pulse Ox O2 Delivery O2 Flow Rate FiO2 06/25/17 07:58 100 45 06/25/17 05:11 97 45 06/25/17 04:00 98.6 87 18 132/65 (87) 93 06/25/17 00:00 98.3 88 16 131/76 (94) 89 06/24/17 20:02 99 Nasal Cannula 2.00 06/24/17 20:00 98.8 85 16 119/70 (86) 98 06/24/17 19:00 Nasal Cannula 3.00 06/24/17 18:00 91 06/24/17 16:00 98.1 91 25 98 06/24/17 16:00 91 06/24/17 14:00 95 I/O 06/24/17 06/24/17 06/24/17 06/25/17 06/25/17 06/25/17 07:00 15:00 23:00 07:00 15:00 23:00 Intake Total 730 ml 1250 ml 730 ml Output Total 900 ml 2500 ml 1200 ml Balance -170 ml -1250 ml -470 ml Intake Oral 630 ml 800 ml 480 ml IV Total 100 ml 450 ml 250 ml Output Urine Total 900 ml 2500 ml 1200 ml # Bowel Movements 0 0 Physical Exam GENERAL: NAD, AAOx3 SKIN: Warm and dry. HEAD: Atraumatic. Normocephalic. EYES: Pupils equal and round. No scleral icterus. No injection or drainage. ENT: No nasal bleeding or discharge. Mucous membranes pink and moist. NECK: Trachea midline. No JVD. CARDIOVASCULAR: Regular rate and rhythm. 2/6 holosystolic murmur noted at the apex RESPIRATORY: No accessory muscle use. Decreased breath sounds bilaterally GASTROINTESTINAL: Abdomen soft, non-tender, nondistended. Hepatic and splenic margins not palpable. MUSCULOSKELETAL: Extremities without clubbing, cyanosis, or edema. RLE with AKA NEUROLOGICAL: Awake and alert. No obvious cranial nerve deficits. Motor grossly within normal limits. Five out of 5 muscle strength in the arms and legs. Normal speech. PSYCHIATRIC: Appropriate mood and affect; insight and judgment normal. Laboratory Laboratory Tests Test 06/22/17 15:33 06/22/17 20:55 06/23/17 04:30 06/23/17 14:49 Troponin I 1.50 NG/ML (0.02-0.05) 1.10 NG/ML (0.02-0.05) 0.98 NG/ML (0.02-0.05) Activated Partial Thromboplast Time 35.9 SEC (24.3-30.1) 43.4 SEC (24.3-30.1) 28.7 SEC (24.3-30.1) Lactic Acid Level 2.7 mmol/L (0.4-2.0) White Blood Count 17.1 TH/MM3 (4.0-11.0) Red Blood Count 3.29 MIL/MM3 (4.50-5.90) Hemoglobin 9.4 GM/DL (13.0-17.0) Hematocrit 28.6 % (39.0-51.0) Mean Corpuscular Volume 87.1 FL (80.0-100.0) Mean Corpuscular Hemoglobin 28.6 PG (27.0-34.0) Mean Corpuscular Hemoglobin Concent 32.8 % (32.0-36.0) Red Cell Distribution Width 16.5 % (11.6-17.2) Platelet Count 218 TH/MM3 (150-450) Mean Platelet Volume 9.7 FL (7.0-11.0) Neutrophils (%) (Auto) 87.5 % (16.0-70.0) Lymphocytes (%) (Auto) 7.8 % (9.0-44.0) Monocytes (%) (Auto) 4.6 % (0.0-8.0) Eosinophils (%) (Auto) 0.0 % (0.0-4.0) Basophils (%) (Auto) 0.1 % (0.0-2.0) Neutrophils # (Auto) 14.9 TH/MM3 (1.8-7.7) Lymphocytes # (Auto) 1.3 TH/MM3 (1.0-4.8) Monocytes # (Auto) 0.8 TH/MM3 (0-0.9) Eosinophils # (Auto) 0.0 TH/MM3 (0-0.4) Basophils # (Auto) 0.0 TH/MM3 (0-0.2) CBC Comment DIFF FINAL Differential Comment Blood Urea Nitrogen 37 MG/DL (7-18) Creatinine 0.95 MG/DL (0.60-1.30) Random Glucose 135 MG/DL (74-106) Calcium Level 7.6 MG/DL (8.5-10.1) Phosphorus Level 3.6 MG/DL (2.5-4.9) Magnesium Level 2.4 MG/DL (1.5-2.5) Sodium Level 141 MEQ/L (136-145) Potassium Level 4.5 MEQ/L (3.5-5.1) Chloride Level 110 MEQ/L (98-107) Carbon Dioxide Level 21.8 MEQ/L (21.0-32.0) Anion Gap 9 MEQ/L (5-15) Estimat Glomerular Filtration Rate 81 ML/MIN (>89) Test 06/23/17 22:46 06/24/17 04:55 06/24/17 07:10 Activated Partial Thromboplast Time 56.4 SEC (24.3-30.1) 50.9 SEC (24.3-30.1) White Blood Count 12.8 TH/MM3 (4.0-11.0) Red Blood Count 3.37 MIL/MM3 (4.50-5.90) Hemoglobin 9.2 GM/DL (13.0-17.0) Hematocrit 29.4 % (39.0-51.0) Mean Corpuscular Volume 87.2 FL (80.0-100.0) Mean Corpuscular Hemoglobin 27.3 PG (27.0-34.0) Mean Corpuscular Hemoglobin Concent 31.3 % (32.0-36.0) Red Cell Distribution Width 16.3 % (11.6-17.2) Platelet Count 209 TH/MM3 (150-450) Mean Platelet Volume 9.4 FL (7.0-11.0) Neutrophils (%) (Auto) 81.2 % (16.0-70.0) Lymphocytes (%) (Auto) 12.1 % (9.0-44.0) Monocytes (%) (Auto) 6.4 % (0.0-8.0) Eosinophils (%) (Auto) 0.1 % (0.0-4.0) Basophils (%) (Auto) 0.2 % (0.0-2.0) Neutrophils # (Auto) 10.4 TH/MM3 (1.8-7.7) Lymphocytes # (Auto) 1.5 TH/MM3 (1.0-4.8) Monocytes # (Auto) 0.8 TH/MM3 (0-0.9) Eosinophils # (Auto) 0.0 TH/MM3 (0-0.4) Basophils # (Auto) 0.0 TH/MM3 (0-0.2) CBC Comment DIFF FINAL Differential Comment Blood Urea Nitrogen 34 MG/DL (7-18) Creatinine 0.97 MG/DL (0.60-1.30) Random Glucose 111 MG/DL (74-106) Calcium Level 7.9 MG/DL (8.5-10.1) Sodium Level 140 MEQ/L (136-145) Potassium Level 4.0 MEQ/L (3.5-5.1) Chloride Level 108 MEQ/L (98-107) Carbon Dioxide Level 23.6 MEQ/L (21.0-32.0) Anion Gap 8 MEQ/L (5-15) Estimat Glomerular Filtration Rate 79 ML/MIN (>89) Blood Gas Puncture Site RT RADIAL Blood Gas Patient Temperature 98.6 Blood Gas HCO3 23 mmol/L (22-26) Blood Gas Base Excess -1.2 mmol/L (-2-2) Blood Gas Oxygen Saturation 89 % (90-100) Arterial Blood pH 7.40 (7.380-7.420) Arterial Blood Partial Pressure CO2 38 mmHg (38-42) Arterial Blood Partial Pressure O2 64 mmHg (61-120) Arterial Blood Oxygen Content 11.9 Vol % (12.0-20.0) Arterial Blood Carboxyhemoglobin 1.2 % (0-4) Arterial Blood Methemoglobin 1.1 % (0-2) Blood Gas Hemoglobin 9.5 G/DL (12.0-16.0) Oxygen Delivery Device PARTIAL REBREATHER Assessment and Plan Problem List: (1) Mitral regurgitation ICD Codes: I34.0 - Nonrheumatic mitral (valve) insufficiency (2) NSTEMI (non-ST elevated myocardial infarction) ICD Codes: I21.4 - Non-ST elevation (NSTEMI) myocardial infarction Status: Acute (3) Hx of CABG ICD Codes: Z95.1 - Presence of aortocoronary bypass graft (4) Anemia ICD Codes: D64.9 - Anemia, unspecified (5) DM (6) PVD (peripheral vascular disease) ICD Codes: I73.9 - Peripheral vascular disease, unspecified (7) Shortness of breath ICD Codes: R06.02 - Shortness of breath Status: Acute (8) Tobacco abuse ICD Codes: Z72.0 - Tobacco abuse Status: Chronic Assessment and Plan 1) EF 35-40% with severe MR Huge change compared to previous Diagnostic cardiac catheterization showing no change in CAD, 3/4 grafts patent as before Will also need YURIY for bacteremia with such a change in MR to rule out endocarditis, probably Sunday, will check respiratory status tomorrow 2) SOB due to CHF from MR 3) Attempt to diuresis as possible 4) Bacteremia 4/4 bottles positive ID following 5) Pleural effusion Would benefit from thoracentesis, but will only do if off Plavix As no change to CAD, and troponin is a Type 2 spill... will plan to hold for thoracentesis and restart afterwards Anupam Richter DO Jun 25, 2017 12:13
[2017-06-25 12:50] LABS: AUTOMATED NEUTROPHIL # 12.4 TH/MM3 (1.8-7.7); BASOPHIL # 0.1 TH/MM3 (0-0.2); BASOPHIL % 0.3 % (0.0-2.0); EOSINOPHIL # 0.1 TH/MM3 (0-0.4); EOSINOPHIL % 0.5 % (0.0-4.0); HEMATOCRIT 36.6 % (39.0-51.0); HEMO FLAGS DIFF FINAL; LYMPH % 14.7 % (9.0-44.0); LYMPHOCYTE # 2.3 TH/MM3 (1.0-4.8); MEAN CELL VOLUME 85.4 FL (80.0-100.0); MEAN CORPUSCULAR HEMOGLOBIN 27.6 PG (27.0-34.0); MEAN CORPUSCULAR HGB CONC 32.3 % (32.0-36.0); MONO % 5.7 % (0.0-8.0); NEUT % 78.8 % (16.0-70.0); PLATELET COUNT 294 TH/MM3 (150-450); RED BLOOD COUNT 4.29 MIL/MM3 (4.50-5.90); RED CELL DISTRIBUTION WIDTH 16.3 % (11.6-17.2); WHITE BLOOD COUNT 15.7 TH/MM3 (4.0-11.0)
[2017-06-25 13:09] LABS: APTT (PATIENT) 30.8 SEC (24.3-30.1)
[2017-06-25] MEDS: ALPRAZolam 0.5 MG TAB PO PRN ×2 (13:12→21:14)
[2017-06-25 13:28] LABS: BICARBONATE 31.3 MEQ/L (21.0-32.0); POTASSIUM 3.2 MEQ/L (3.5-5.1)
--- NOTE | 2017-06-25 14:07 | HHI.IDPN ---
Subjective Subjective Remarks pt is not actively co chest pain or SOB growing MSSA/coag neg staph in both admission sets, repaet sets are negative Diagnostic cardiac catheterization showing no change in CAD, 3/4 grafts patent as before pt is afebrile Antibiotics azithromycin oxacilllin Allergies: Coded Allergies: No Allergy Information Available (Unverified , 06/21/17) Objective . Vital Signs Date Time Temp Pulse Resp B/P (MAP) Pulse Ox O2 Delivery O2 Flow Rate FiO2 06/25/17 07:58 100 45 06/25/17 05:11 97 45 06/25/17 04:00 98.6 87 18 132/65 (87) 93 06/25/17 00:00 98.3 88 16 131/76 (94) 89 06/24/17 20:02 99 Nasal Cannula 2.00 06/24/17 20:00 98.8 85 16 119/70 (86) 98 06/24/17 19:00 Nasal Cannula 3.00 06/24/17 18:00 91 06/24/17 16:00 98.1 91 25 98 06/24/17 16:00 91 06/24/17 14:00 95 . Laboratory Tests Test 06/24/17 04:55 06/25/17 11:59 White Blood Count 12.8 TH/MM3 15.7 TH/MM3 Red Blood Count 3.37 MIL/MM3 4.29 MIL/MM3 Hemoglobin 9.2 GM/DL 11.8 GM/DL Hematocrit 29.4 % 36.6 % Mean Corpuscular Volume 87.2 FL 85.4 FL Mean Corpuscular Hemoglobin 27.3 PG 27.6 PG Mean Corpuscular Hemoglobin Concent 31.3 % 32.3 % Red Cell Distribution Width 16.3 % 16.3 % Platelet Count 209 TH/MM3 294 TH/MM3 Mean Platelet Volume 9.4 FL 9.8 FL Neutrophils (%) (Auto) 81.2 % 78.8 % Lymphocytes (%) (Auto) 12.1 % 14.7 % Monocytes (%) (Auto) 6.4 % 5.7 % Eosinophils (%) (Auto) 0.1 % 0.5 % Basophils (%) (Auto) 0.2 % 0.3 % Neutrophils # (Auto) 10.4 TH/MM3 12.4 TH/MM3 Lymphocytes # (Auto) 1.5 TH/MM3 2.3 TH/MM3 Monocytes # (Auto) 0.8 TH/MM3 0.9 TH/MM3 Eosinophils # (Auto) 0.0 TH/MM3 0.1 TH/MM3 Basophils # (Auto) 0.0 TH/MM3 0.1 TH/MM3 CBC Comment DIFF FINAL DIFF FINAL Differential Comment Laboratory Tests Test 06/24/17 04:55 06/25/17 11:59 Blood Urea Nitrogen 34 MG/DL 25 MG/DL Creatinine 0.97 MG/DL 0.99 MG/DL Random Glucose 111 MG/DL 223 MG/DL Calcium Level 7.9 MG/DL 8.6 MG/DL Sodium Level 140 MEQ/L 139 MEQ/L Potassium Level 4.0 MEQ/L 3.2 MEQ/L Chloride Level 108 MEQ/L 100 MEQ/L Carbon Dioxide Level 23.6 MEQ/L 31.3 MEQ/L Anion Gap 8 MEQ/L 8 MEQ/L Estimat Glomerular Filtration Rate 79 ML/MIN 77 ML/MIN Imaging Last Impressions Chest X-Ray 06/24/17 0000 Signed Impressions: Service Date/Time: Saturday, June 24, 2017 08:13 - CONCLUSION: Worsening bilateral infiltrates. Ramon Gale MD Chest CT 06/24/17 0000 Signed Impressions: Service Date/Time: Saturday, June 24, 2017 10:33 - CONCLUSION: 1. Acute, upper lobe predominant infiltrates, most likely infectious or inflammatory. A somewhat atypical distribution of pulmonary edema would also be conceivable. 2. Small to moderate right and moderate left pleural effusions have developed as well and with associated left greater than right basilar atelectasis. Ramon Gale MD Physical Exam CONSTITUTIONAL/GENERAL: This is an adequately nourished patient, in no apparent distress. TUBES/LINES/DRAINS: SKIN: No jaundice, rashes, or lesions. . Skin temperature appropriate. Not diaphoretic. EYES: Pupils equal and round and reactive. Extraocular motions intact. No scleral icterus. No injection or drainage. Fundi not examined. ENT: Hearing grossly normal. Nose without bleeding or purulent drainage. Oral mucosae without visible erythema, exudates, masses, or lesions. Poor dentition NECK: Trachea midline. Supple, nontender. CARDIOVASCULAR: Regular rate and rhythm without murmurs, gallops, or rubs. No JVD. Peripheral pulses symmetric. Well healed sternotomy scar RESPIRATORY/CHEST: Symmetric, unlabored respirations. Clear to auscultation. Breath sounds equal bilaterally. No wheezes, rales, or rhonchi. GASTROINTESTINAL: Abdomen soft, non-tender, nondistended. No hepato-splenomegaly , or palpable masses. No guarding. Bowel sounds present. GENITOURINARY: Without palpable bladder distension. MUSCULOSKELETAL: Extremities without clubbing, cyanosis, or edema. 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 Pulses not palpable LYMPHATICS: No palpable cervical or supraclavicular adenopathy. NEUROLOGICAL: Awake and alert. Motor and sensory grossly within normal limits. Follows commands. Clear speech . Moves all extremities. PSYCHIATRIC: No obvious anxiety/depression. no apparent hallucinations or other psychotic thought process. Assessment & Plan Remarks A/p: MSSA bacteremia ? 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
[2017-06-25] MEDS: AZITHROMYCIN INJ 500 MG in SODIUM CHLOR 0.9% 250 ML INJ 250 ML IV SCH (17:30)
[2017-06-25] MEDS: NORTRIPTYLINE HCL 25 MG CAP PO SCH (20:56)
[2017-06-25] MEDS: ATORVASTATIN 80 MG TAB PO SCH (20:56)
[2017-06-26] VITALS (21 sets, daily range): BP systolic 95–117; BP diastolic 58–78; PULSE 71–90; RESP 12–36; TEMP 97.6–98.8; O2SAT 93–100
[2017-06-26] MEDS: INSULIN NovoLIN REGULAR SUPPLEMENTAL SCALE SQ SCH ×6 (00:37→21:00)
[2017-06-26] MEDS: OXACILLIN INJ 2 GM in SODIUM CHLORIDE 0.9% INJ 100 ML IV SCH ×6 (00:38→21:19)
[2017-06-26] MEDS: CHLORHEXIDINE GLUCONATE 2 % 1 PACK (2 CLOTHS) TOP SCH (03:43)
[2017-06-26] MEDS: methylPREDNISolone SOD SUCC 40 MG/1 ML VIAL IV PUSH SCH ×2 (03:43→15:00)
[2017-06-26] MEDS: LEVOTHYROXINE SODIUM 100 MCG TAB PO SCH (06:05)
[2017-06-26] MEDS: RESP: ALBUTEROL 2.5 MG/IPRATROPIUM 0.5 MG NEB (SCH) INH ×4 (07:57→20:27)
[2017-06-26] MEDS: CYANOCOBALAMIN 1,000 MCG TAB PO SCH (08:06)
[2017-06-26] MEDS: ASPIRIN EC 81 MG TABEC PO SCH (08:06)
[2017-06-26] MEDS: CARVEDILOL 6.25 MG TAB PO SCH ×2 (08:06→21:21)
[2017-06-26] MEDS: PREGABALIN 100 MG CAP PO SCH ×3 (08:06→17:49)
[2017-06-26] MEDS: LISINOPRIL 5 MG TAB PO SCH (08:07)
[2017-06-26] MEDS: amLODIPine BESYLATE 5 MG TAB PO SCH (08:07)
[2017-06-26] MEDS: ACETAMINOPHEN/HYDROcodone 325 MG/10 MG TAB PO PRN ×3 (08:08→21:20)
[2017-06-26] MEDS: DOCUSATE SODIUM 50 MG/SENNA 8.6 MG TAB PO SCH ×2 (08:10→21:20)
[2017-06-26] MEDS ORDERED: POTASSIUM PHOSPHATE MONOBASIC 500 MG TAB PO/TUBE PRN (08:30)
[2017-06-26] MEDS ORDERED: POTASSIUM CHLORIDE 25 MEQ EFFERVESCENT TAB PO PRN (08:30)
[2017-06-26] MEDS ORDERED: POTASSIUM PHOSPHATE MONOBASIC 500 MG TAB PO PRN (08:30)
[2017-06-26] MEDS ORDERED: SODIUM PHOSPHATE INJ 30 MMOL in SODIUM CHLOR 0.9% 250 ML INJ 240 ML IV PRN (08:30)
[2017-06-26] MEDS ORDERED: POTASSIUM CHLOR 40 MEQ PREMIX 100 ML IV PRN ×2 (08:30)
[2017-06-26] MEDS ORDERED: MAGNESIUM OXIDE 400 MG TAB PO PRN (08:30)
[2017-06-26] MEDS ORDERED: MAGNESIUM SULFATE INJ 2 GM in SODIUM CHLORIDE 0.9% INJ 96 ML IV PRN (08:30)
[2017-06-26] MEDS ORDERED: MAGNESIUM SULFATE INJ 4 GM in SODIUM CHLORIDE 0.9% INJ 92 ML IV PRN (08:30)
[2017-06-26] MEDS ORDERED: POTASSIUM PHOSPHATE INJ 30 MMOL in SODIUM CHLOR 0.9% 250 ML INJ 250 ML IV PRN (08:30)
[2017-06-26] MEDS ORDERED: POTASSIUM CHLOR 20 MEQ PREMIX 100 ML IV PRN ×2 (08:30)
--- NOTE | 2017-06-26 08:32 | HHI.CCPN ---
Subjective Remarks/Hospital Course 62-year-old male with PMH of DM, lifelong smoker presents via EMS for evaluation of respiratory distress. Per EMS the patient's O2 sats was in the 70s on arrival. He received 250 of Solu-Medrol and 2 albuterol treatments en route. Upon arrival to emergency department the CPAP was applied with some improvement. On my evaluation patient is in moderate respiratory distress on facemask nonrebreather. He states his cough is nonproductive. He is unable to provide much other history due to respiratory distress.. 06/21: O2 sats in the high 90s today. Patient continues to demonstrate labored breathing. On my evaluation he is in mild respiratory distress and on a facemask nonrebreather. 06/22 Patient is on BIPAP 04/19 with 40% FIO2. Started on Heparin drip last night for increase trop ( 4.26 from 0.08) on insulin drip 2units/hr. Afebrile. 06/23 Patient was on BIPAP overnight now on partial rebreather, Remains on Heparin drip. 06/24 Patient is lying in bed in mild resp distresss, on partial rebreather. Afebrile. On Heparin drip 06/25 No events overnight. Afebrile. On BIPAP. For possible cath today 06/26 Patient is on 2L oxygen with good sats. s/p cath yesterday showed no change in CAD, 3/4 grafts patent. Off Heparin drip Objective Vital Signs Date Time Temp Pulse Resp B/P (MAP) Pulse Ox O2 Delivery O2 Flow Rate FiO2 06/26/17 07:57 99 Nasal Cannula 2.00 06/26/17 06:00 77 06/26/17 04:00 98.8 22 95/58 (70) 06/25/17 07:58 45 Intake and Output 06/26/17 06/26/17 06/27/17 08:00 16:00 00:00 Intake Total 350 ml Output Total 1250 ml Balance -900 ml Result Diagram: 06/25/17 1159 06/25/17 1159 Other Results Laboratory Tests Test 06/25/17 11:59 White Blood Count 15.7 TH/MM3 Red Blood Count 4.29 MIL/MM3 Hemoglobin 11.8 GM/DL Hematocrit 36.6 % Mean Corpuscular Volume 85.4 FL Mean Corpuscular Hemoglobin 27.6 PG Mean Corpuscular Hemoglobin Concent 32.3 % Red Cell Distribution Width 16.3 % Platelet Count 294 TH/MM3 Mean Platelet Volume 9.8 FL Neutrophils (%) (Auto) 78.8 % Lymphocytes (%) (Auto) 14.7 % Monocytes (%) (Auto) 5.7 % Eosinophils (%) (Auto) 0.5 % Basophils (%) (Auto) 0.3 % Neutrophils # (Auto) 12.4 TH/MM3 Lymphocytes # (Auto) 2.3 TH/MM3 Monocytes # (Auto) 0.9 TH/MM3 Eosinophils # (Auto) 0.1 TH/MM3 Basophils # (Auto) 0.1 TH/MM3 CBC Comment DIFF FINAL Differential Comment Activated Partial Thromboplast Time 30.8 SEC Blood Urea Nitrogen 25 MG/DL Creatinine 0.99 MG/DL Random Glucose 223 MG/DL Calcium Level 8.6 MG/DL Sodium Level 139 MEQ/L Potassium Level 3.2 MEQ/L Chloride Level 100 MEQ/L Carbon Dioxide Level 31.3 MEQ/L Anion Gap 8 MEQ/L Estimat Glomerular Filtration Rate 77 ML/MIN Imaging Last Impressions Chest X-Ray 06/24/17 0000 Signed Impressions: Service Date/Time: Saturday, June 24, 2017 08:13 - CONCLUSION: Worsening bilateral infiltrates. Ramon Gale MD Chest CT 06/24/17 0000 Signed Impressions: Service Date/Time: Saturday, June 24, 2017 10:33 - CONCLUSION: 1. Acute, upper lobe predominant infiltrates, most likely infectious or inflammatory. A somewhat atypical distribution of pulmonary edema would also be conceivable. 2. Small to moderate right and moderate left pleural effusions have developed as well and with associated left greater than right basilar atelectasis. Ramon Gale MD Objective Remarks GENERAL: Elderly appearing male in mild respiratory distress SKIN: Warm and dry. HEAD: Normocephalic. EYES: No scleral icterus. No injection or drainage. NECK: Supple, trachea midline. No JVD or lymphadenopathy. CARDIOVASCULAR: Regular rate and rhythm without murmurs, gallops, or rubs. RESPIRATORY: O2 sat 98%, O2 sat dropped slowly to 94% without facemask, Labored breathing, Breath sounds equal and clear bilaterally. Some accessory muscle use. occasional fine rhonchi of the left lung lobes GASTROINTESTINAL: Abdomen soft, non-tender, nondistended. MUSCULOSKELETAL: No cyanosis, or edema. BACK: Nontender without obvious deformity. 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 [place]/ Xanax prn for anxiety/ pain CV: Monitor HR and BP keep MAP over 65 On Coreg 6.25mg BID, Aspirin, Plavix, Lipitor. Lisinopril 2.5mg daily, Norvasc 5mg daily Cards is following-Dr. Richter Echo showed EF 35-40%, severe MR. s/p cath 06/25 showed no change in CAD, 3/4 grafts patent. For possible YURIY tomorrow Pulm: Continue with oxygen as kimmy keep sat >92% IV steroids: solumedrol 40mg IV q12h Bronchodilators, NIPPV PRN for resp distress, IS Pulm is following- Dr. Slaughter US guided thoracentesis couldn't be performed as patient was on Plavix GI/liver: On PO diet : Monitor renal function, electrolytes replacement per protocol. On Lasix 40mg daily ID: Continue abx per ID ( Oxacillin) monitor for signs of infections ( Fever, WBC) BC 12 GPC/ staph Aureus , BC /: No growth so far Strep pneumonia and legionella urinary Ag negative 06/20 06/20 sputum: normal resp luz. Endo: DM2, hypothyroid On SSI, hold Levemir Cont levothyroxine 100 daily heme: Monitor CBC, Pain Management: Cont Lyrica 100mg TID and Nortriptyline HS (home med) Tylenol 650mg q6 PRN pain. [place] when necessary DVT GI prophylaxis - Teds SCDs - Subcutaneous heparin - Pepcid for GI prophylaxis Follow up on labs Level 3 Frank Castaneda MD Jun 26, 2017 08:32
[2017-06-26] MEDS: ALPRAZolam 0.5 MG TAB PO PRN ×3 (08:44→21:20)
[2017-06-26] MEDS: SODIUM CHLORIDE 0.9% FLUSH 10 ML FLUSH IV FLUSH SCH ×2 (08:45→21:21)
[2017-06-26] MEDS: FUROSEMIDE 40 MG/4 ML VIAL IV PUSH SCH (09:00)
[2017-06-26] MEDS: INSULIN DETEMIR 100 UNITS/ML VIAL SQ SCH (09:00)
[2017-06-26 09:04] LABS: AUTOMATED NEUTROPHIL # 8.4 TH/MM3 (1.8-7.7); BASOPHIL % 0.1 % (0.0-2.0); EOSINOPHIL % 0.3 % (0.0-4.0); HEMATOCRIT 35.3 % (39.0-51.0); HEMO FLAGS DIFF FINAL; LYMPH % 11.8 % (9.0-44.0); LYMPHOCYTE # 1.2 TH/MM3 (1.0-4.8); MEAN CELL VOLUME 85.1 FL (80.0-100.0); MEAN CORPUSCULAR HEMOGLOBIN 27.6 PG (27.0-34.0); MEAN CORPUSCULAR HGB CONC 32.4 % (32.0-36.0); MONO % 3.9 % (0.0-8.0); NEUT % 83.9 % (16.0-70.0); PLATELET COUNT 220 TH/MM3 (150-450); RED BLOOD COUNT 4.14 MIL/MM3 (4.50-5.90); RED CELL DISTRIBUTION WIDTH 16.4 % (11.6-17.2); WHITE BLOOD COUNT 10.1 TH/MM3 (4.0-11.0)
[2017-06-26 09:43] LABS: BICARBONATE 29.3 MEQ/L (21.0-32.0); POTASSIUM 3.8 MEQ/L (3.5-5.1)
--- NOTE | 2017-06-26 11:06 | PD.CARD.PN ---
Subjective Subjective Remarks Did well overnight No complaints Currently up to the chair on 2L O2 Objective Medications Current Medications Medications (Trade) Dose Ordered Sig/Nuzhat Route Start Time Stop Time Status Last Admin (Norvasc) 5 mg DAILY PO 06/21/17 09:00 06/26/17 08:07 (Ecotrin Ec) 81 mg DAILY PO 06/21/17 09:00 06/26/17 08:06 (Lipitor) 80 mg HS PO 06/20/17 21:00 06/25/17 20:56 (Coreg) 6.25 mg BID PO 06/20/17 21:00 06/26/17 08:06 (Plavix) 75 mg DAILY PO 06/21/17 09:00 Future Hold 06/24/17 08:55 (Synthroid) 100 mcg DAILY@06 PO 06/21/17 06:00 06/26/17 06:05 (Pamelor) 75 mg HS PO 06/20/17 21:00 06/25/17 20:56 (Lyrica) 100 mg TID PO 06/21/17 09:00 06/26/17 08:06 (Vitamin B12) 1,000 mcg DAILY PO 06/21/17 09:00 06/26/17 08:06 (NS Flush) 2 ml UNSCH PRN IV FLUSH 06/20/17 19:00 (NS Flush) 2 ml BID IV FLUSH 06/20/17 21:00 06/26/17 08:45 (Tylenol) 650 mg Q6H PRN PO 06/20/17 19:00 06/23/17 17:51 (Zofran Inj) 4 mg Q6H PRN IV PUSH 06/20/17 19:00 (Duoneb Neb) 1 ampule Q2HR NEB PRN INH 06/20/17 19:00 Miscellaneous Information 1 Q361D XX 06/20/17 19:00 (Chlorhexidine 2% Cloth) Taper DAILY@04 TOP 06/21/17 04:00 06/17/18 03:59 06/26/17 03:43 (Chlorhexidine 2% Cloth) 3 pack UNSCH PRN TOP 06/20/17 19:00 (Afua-Colace) 1 tab BID PO 06/20/17 21:00 06/25/17 20:56 (Milk Of Magnesia Liq) 30 ml Q12H PRN PO 06/20/17 19:00 (Senokot) 17.2 mg Q12H PRN PO 06/20/17 19:00 (Dulcolax Supp) 10 mg DAILY PRN RECTAL 06/20/17 19:00 (Lactulose Liq) 30 ml DAILY PRN PO 06/20/17 19:00 Azithromycin 500 mg/Sodium Chloride 250 ml @ 250 mls/hr Q24H IV 06/21/17 18:00 06/25/17 17:30 ([place] 10-325 Mg) 1 tab Q6H PRN PO 06/21/17 12:15 06/26/17 08:08 (Xanax) 0.5 mg Q6H PRN PO 06/21/17 12:15 06/26/17 08:44 (SoluMEDROL INJ) 40 mg Q12H IV PUSH 06/22/17 15:00 06/26/17 03:43 (D50w (Vial) Inj) 50 ml UNSCH PRN IV PUSH 06/22/17 08:30 (Glucagon Inj) 1 mg UNSCH PRN OTHER 06/22/17 08:30 (NovoLIN R SUPPLEMENTAL SCALE) 1 Q4H SQ 06/22/17 09:00 06/26/17 09:00 Oxacillin Sodium 2 gm/Sodium Chloride 100 ml @ 200 mls/hr Q4H IV 06/22/17 17:00 06/26/17 08:45 (Lasix Inj) 40 mg DAILY IV PUSH 06/24/17 09:00 06/26/17 09:00 (Prinivil) 5 mg DAILY PO 06/24/17 09:00 06/26/17 08:07 (Duoneb Neb) 1 ampule QID NEB INH 06/24/17 16:00 06/26/17 07:57 (Heparin Inj) 5,000 units Q12HR SQ 06/26/17 16:00 Potassium Chloride 100 ml @ 50 mls/hr Q2H PRN IV 06/26/17 08:30 Potassium Chloride 100 ml @ 50 mls/hr Q2H PRN IV 06/26/17 08:30 (K-Lyte Cl Eff) 50 meq UNSCH PRN PO 06/26/17 08:30 Potassium Chloride 100 ml @ 25 mls/hr UNSCH PRN IV 06/26/17 08:30 Potassium Chloride 100 ml @ 50 mls/hr Q2H PRN IV 06/26/17 08:30 Magnesium Sulfate 4 gm/Sodium Chloride 100 ml @ 50 mls/hr UNSCH PRN IV 06/26/17 08:30 (Mag-Ox) 800 mg UNSCH PRN PO 06/26/17 08:30 Magnesium Sulfate 2 gm/Sodium Chloride 100 ml @ 50 mls/hr UNSCH PRN IV 06/26/17 08:30 (K-Phos) 2,000 mg Q4H PRN PO 06/26/17 08:30 Sodium Phosphate 30 mmol/Sodium Chloride 250 ml @ 42 mls/hr UNSCH PRN IV 06/26/17 08:30 (K-Phos) 2,000 mg UNSCH PRN PO/TUBE 06/26/17 08:30 Potassium Phosphate 30 mmol/ Sodium Chloride 260 ml @ 42 mls/hr UNSCH PRN IV 06/26/17 08:30 Vital Signs / I&O Vital Signs Date Time Temp Pulse Resp B/P (MAP) Pulse Ox O2 Delivery O2 Flow Rate FiO2 06/26/17 07:57 99 Nasal Cannula 2.00 06/26/17 06:00 77 06/26/17 04:00 71 06/26/17 04:00 98.8 71 22 95/58 (70) 96 06/26/17 02:00 74 06/26/17 00:00 98.6 80 13 103/63 (76) 95 06/26/17 00:00 80 06/25/17 22:00 84 06/25/17 21:35 96 Nasal Cannula 2.50 06/25/17 20:00 85 06/25/17 20:00 98.4 85 22 116/65 (82) 95 06/25/17 19:00 98 Nasal Cannula 3.00 06/25/17 18:00 79 06/25/17 16:00 78 06/25/17 16:00 98.8 78 17 119/67 (84) 92 06/25/17 14:00 95 06/25/17 12:00 98.7 100 17 157/90 (112) 99 06/25/17 12:00 100 I/O 06/25/17 06/25/17 06/25/17 06/26/17 06/26/17 06/26/17 07:00 15:00 23:00 07:00 15:00 23:00 Intake Total 730 ml 150 ml 875 ml 450 ml Output Total 1200 ml 2600 ml 1250 ml Balance -470 ml 150 ml -1725 ml -800 ml Intake Oral 480 ml 425 ml 150 ml IV Total 250 ml 150 ml 450 ml 300 ml Output Urine Total 1200 ml 2600 ml 1250 ml # Bowel Movements 0 0 0 Physical Exam GENERAL: NAD, AAOx3 SKIN: Warm and dry. HEAD: Atraumatic. Normocephalic. EYES: Pupils equal and round. No scleral icterus. No injection or drainage. ENT: No nasal bleeding or discharge. Mucous membranes pink and moist. NECK: Trachea midline. No JVD. CARDIOVASCULAR: Regular rate and rhythm. 2/6 holosystolic murmur noted at the apex RESPIRATORY: No accessory muscle use. Decreased breath sounds bilaterally GASTROINTESTINAL: Abdomen soft, non-tender, nondistended. Hepatic and splenic margins not palpable. MUSCULOSKELETAL: Extremities without clubbing, cyanosis, or edema. RLE with AKA. Left radial no hematoma, neurovascularly intact distally NEUROLOGICAL: Awake and alert. No obvious cranial nerve deficits. Motor grossly within normal limits. Five out of 5 muscle strength in the arms and legs. Normal speech. PSYCHIATRIC: Appropriate mood and affect; insight and judgment normal. Laboratory Laboratory Tests Test 06/25/17 11:59 06/26/17 07:10 White Blood Count 15.7 TH/MM3 10.1 TH/MM3 Red Blood Count 4.29 MIL/MM3 4.14 MIL/MM3 Hemoglobin 11.8 GM/DL 11.4 GM/DL Hematocrit 36.6 % 35.3 % Mean Corpuscular Volume 85.4 FL 85.1 FL Mean Corpuscular Hemoglobin 27.6 PG 27.6 PG Mean Corpuscular Hemoglobin Concent 32.3 % 32.4 % Red Cell Distribution Width 16.3 % 16.4 % Platelet Count 294 TH/MM3 220 TH/MM3 Mean Platelet Volume 9.8 FL 9.5 FL Neutrophils (%) (Auto) 78.8 % 83.9 % Lymphocytes (%) (Auto) 14.7 % 11.8 % Monocytes (%) (Auto) 5.7 % 3.9 % Eosinophils (%) (Auto) 0.5 % 0.3 % Basophils (%) (Auto) 0.3 % 0.1 % Neutrophils # (Auto) 12.4 TH/MM3 8.4 TH/MM3 Lymphocytes # (Auto) 2.3 TH/MM3 1.2 TH/MM3 Monocytes # (Auto) 0.9 TH/MM3 0.4 TH/MM3 Eosinophils # (Auto) 0.1 TH/MM3 0.0 TH/MM3 Basophils # (Auto) 0.1 TH/MM3 0.0 TH/MM3 CBC Comment DIFF FINAL DIFF FINAL Differential Comment Activated Partial Thromboplast Time 30.8 SEC Blood Urea Nitrogen 25 MG/DL 25 MG/DL Creatinine 0.99 MG/DL 0.78 MG/DL Random Glucose 223 MG/DL 60 MG/DL Calcium Level 8.6 MG/DL 8.1 MG/DL Sodium Level 139 MEQ/L 138 MEQ/L Potassium Level 3.2 MEQ/L 3.8 MEQ/L Chloride Level 100 MEQ/L 100 MEQ/L Carbon Dioxide Level 31.3 MEQ/L 29.3 MEQ/L Anion Gap 8 MEQ/L 9 MEQ/L Estimat Glomerular Filtration Rate 77 ML/MIN 102 ML/MIN Phosphorus Level 3.1 MG/DL Assessment and Plan Problem List: (1) Mitral regurgitation ICD Codes: I34.0 - Nonrheumatic mitral (valve) insufficiency (2) NSTEMI (non-ST elevated myocardial infarction) ICD Codes: I21.4 - Non-ST elevation (NSTEMI) myocardial infarction Status: Acute (3) Hx of CABG ICD Codes: Z95.1 - Presence of aortocoronary bypass graft (4) Anemia ICD Codes: D64.9 - Anemia, unspecified (5) DM (6) PVD (peripheral vascular disease) ICD Codes: I73.9 - Peripheral vascular disease, unspecified (7) Shortness of breath ICD Codes: R06.02 - Shortness of breath Status: Acute (8) Tobacco abuse ICD Codes: Z72.0 - Tobacco abuse Status: Chronic Assessment and Plan 1) EF 35-40% with severe MR Huge change compared to previous Diagnostic cardiac catheterization showing no change in CAD, 3/4 grafts patent as before Plan YURIY tomorrow, bacteremia with such a change in MR to rule out endocarditis 2) SOB due to CHF from MR 3) Attempt to diuresis as possible 4) Bacteremia 4/4 bottles positive ID following Further cultures so far negative 5) Pleural effusion Would benefit from thoracentesis, but will only do if off Plavix As no change to CAD, and troponin is a Type 2 spill... will plan to hold for thoracentesis and restart afterwards Anupam Richter DO Jun 26, 2017 11:06
[2017-06-26] MEDS: FAMOTIDINE 20 MG TAB PO SCH ×2 (12:36→21:21)
--- NOTE | 2017-06-26 12:41 | MA ---
cc: ANUPAM WINSLOW DO DATE OF PROCEDURE June 25, 2017 PROCEDURE Left heart catheterization, coronary angiogram, bypass angiogram. PREPROCEDURE DIAGNOSES New cardiomyopathy. Severe mitral regurgitation by echocardiogram. Coronary artery disease. History of CABG x4. POSTPROCEDURE DIAGNOSES Severe [place] coronary artery disease. History of CABG x4 (3/4 grafts patent. No change from previous cardiac catheterization (April 2017). MEDICATIONS 1. Heparin 2600 units. 2. Nitro 200 mcg. 3. Verapamil 2.5 mg. CONTRAST USED 100 cc. FLUOROSCOPY 6.3 minutes. MODERATE SEDATION 0 minutes. ESTIMATED BLOOD LOSS 10 cc. PROCEDURAL SUMMARY Ezio Aragon is a pleasant 62-year-old male who presented to [facility] due to shortness of breath. He was found to have new cardiomyopathy with severe mitral regurgitation compared to previous echocardiogram. He was also found to have an elevated troponin. Because of this he was recommended cardiac catheterization to determine if there is any change in his overall coronary anatomy. The risks, benefits and alternatives were explained to him and he consented to such. He was brought to lab and prepped in the usual sterile fashion. The left radial artery was accessed using a modified Seldinger technique and placement of a 5/6-[place] Slender Sheath. This was easily aspirated and flushed. A JR-4 was advanced over a J-wire to the ascending aorta and across the aortic valve for measurement of left ventricular pressure. This was pulled back across the aortic valve showing no significant gradient of aortic stenosis. A JR-4 was used for selective angiography of the right coronary artery as well as the saphenous vein graft to the PDA. This was exchanged out for a JL-4 which was used for selective angiography of the [place] left coronary system. This was exchanged out for an AL-1 which was used for selective angiography of the SVG to obtuse marginal. This was exchanged out for the JR-4 which was used for selective angiography of the OCONNELL to LAD. The JR-4 was removed over a J-wire. A radial band was placed over the arteriotomy site for hemostasis. 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 FINDINGS LEFT MAIN: 95% ostial disease in an overall small-appearing vessel. It bifurcates into an LAD and circumflex. LAD: Overall small vessel with 80-90% diffuse disease throughout and 100% occlusion in the midportion. It does supply one overall small diagonal of 1-mm or so. LEFT CIRCUMFLEX: Overall small vessel with diffuse 70% disease throughout and a 90% focal lesion in the midportion. It does supply one overall small obtuse marginal. RCA: 100% occluded in the proximal to midportion. O[place] to LAD: Patent throughout which supplies antegrade and retrograde, the LAD with no significant disease. This also does supply some collaterals to the distal PDA. SVG to OM: Patent with no significant disease. It appears to fill upper and lower branch of the first obtuse marginal. SVG to PDA: Patent with good runoff and overall supplies the PDA as well as one of the posterior lateral branches. PREVIOUS SVG TO PLV: Most likely came off of the SVG to PDA and appears to be occluded, although this area may be supplied from the SVG to PDA. LVEDP of 8. IMPRESSIONS 1. NSTEMI. 2. New cardiomyopathy with an ejection fraction of 35-40%. 3. Severe mitral regurgitation which is overall new compared to previous echo. 4. Severe [place] coronary artery disease. 5. History of CABG x4 (3/4 grafts patent). RECOMMENDATIONS 1. Mr. Aragon underwent cardiac catheterization and essentially had the same coronary anatomy as two months ago with no closure of his previous grafts. 2. He does have significant severe mitral regurgitation which overall most likely caused his elevated troponin as well as the shortness of breath. We will plan in the near future for him to undergo a transesophageal echocardiogram to further evaluate this for possible endocarditis as he has had positive blood cultures versus other etiology for his mitral regurgitation. 3. As he has had no change in his coronary anatomy. We will plan on holding his Plavix so that there is a possibility he could have a thoracentesis in the near future as I think this will help his overall breathing. 4. Further recommendations will be made based on the hospital course. Thank you for allowing me to see Ezio Aragon. If there are any questions, please do not hesitate to call. Anupam Winslow DO VGP/SSB /11:51 AM /12:16 PM
[2017-06-26] MEDS: HEPARIN SODIUM - SQ 10,000 UNITS/ML VIAL SQ SCH (17:53)
[2017-06-26] MEDS: AZITHROMYCIN INJ 500 MG in SODIUM CHLOR 0.9% 250 ML INJ 250 ML IV SCH (17:55)
[2017-06-26] MEDS: NORTRIPTYLINE HCL 25 MG CAP PO SCH (21:20)
[2017-06-26] MEDS: ATORVASTATIN 80 MG TAB PO SCH (21:20)
[2017-06-27] VITALS (20 sets, daily range): BP systolic 96–123; BP diastolic 54–79; PULSE 66–85; RESP 1–18; TEMP 97.9–98.3; O2SAT 92–100
[2017-06-27] MEDS: OXACILLIN INJ 2 GM in SODIUM CHLORIDE 0.9% INJ 100 ML IV SCH ×6 (00:58→19:23)
[2017-06-27] MEDS: INSULIN NovoLIN REGULAR SUPPLEMENTAL SCALE SQ SCH ×6 (00:59→21:00)
[2017-06-27] MEDS: CHLORHEXIDINE GLUCONATE 2 % 1 PACK (2 CLOTHS) TOP SCH (01:00)
[2017-06-27] MEDS: LEVOTHYROXINE SODIUM 100 MCG TAB PO SCH (04:29)
[2017-06-27] MEDS: methylPREDNISolone SOD SUCC 40 MG/1 ML VIAL IV PUSH SCH ×2 (04:29→15:33)
[2017-06-27] MEDS: ACETAMINOPHEN/HYDROcodone 325 MG/10 MG TAB PO PRN ×3 (06:15→19:24)
[2017-06-27] MEDS: ALPRAZolam 0.5 MG TAB PO PRN ×3 (06:17→19:23)
[2017-06-27 07:22] LABS: AUTOMATED NEUTROPHIL # 5.4 TH/MM3 (1.8-7.7); BASOPHIL % 0.1 % (0.0-2.0); EOSINOPHIL % 0.6 % (0.0-4.0); HEMATOCRIT 31.4 % (39.0-51.0); HEMO FLAGS DIFF FINAL; LYMPH % 24.2 % (9.0-44.0); LYMPHOCYTE # 1.9 TH/MM3 (1.0-4.8); MEAN CELL VOLUME 84.1 FL (80.0-100.0); MEAN CORPUSCULAR HEMOGLOBIN 26.9 PG (27.0-34.0); MONO % 6.2 % (0.0-8.0); NEUT % 68.9 % (16.0-70.0); PLATELET COUNT 176 TH/MM3 (150-450); RED BLOOD COUNT 3.73 MIL/MM3 (4.50-5.90); RED CELL DISTRIBUTION WIDTH 16.6 % (11.6-17.2); WHITE BLOOD COUNT 7.9 TH/MM3 (4.0-11.0)
[2017-06-27 07:45] LABS: BICARBONATE 32.5 MEQ/L (21.0-32.0); POTASSIUM 3.7 MEQ/L (3.5-5.1)
--- NOTE | 2017-06-27 08:24 | HHI.CCPN ---
Subjective Remarks/Hospital Course 62-year-old male with PMH of DM, lifelong smoker presents via EMS for evaluation of respiratory distress. Per EMS the patient's O2 sats was in the 70s on arrival. He received 250 of Solu-Medrol and 2 albuterol treatments en route. Upon arrival to emergency department the CPAP was applied with some improvement. On my evaluation patient is in moderate respiratory distress on facemask nonrebreather. He states his cough is nonproductive. He is unable to provide much other history due to respiratory distress.. 06/21: O2 sats in the high 90s today. Patient continues to demonstrate labored breathing. On my evaluation he is in mild respiratory distress and on a facemask nonrebreather. 06/22 Patient is on BIPAP 04/19 with 40% FIO2. Started on Heparin drip last night for increase trop ( 4.26 from 0.08) on insulin drip 2units/hr. Afebrile. 06/23 Patient was on BIPAP overnight now on partial rebreather, Remains on Heparin drip. 06/24 Patient is lying in bed in mild resp distresss, on partial rebreather. Afebrile. On Heparin drip 06/25 No events overnight. Afebrile. On BIPAP. For possible cath today 06/26 Patient is on 2L oxygen with good sats. s/p cath yesterday showed no change in CAD, 3/4 grafts patent. Off Heparin drip 06/27 No events overnight. Patient is lying in bed in NAD. For YURIY today. Afebrile. Objective Vital Signs Date Time Temp Pulse Resp B/P (MAP) Pulse Ox O2 Delivery O2 Flow Rate FiO2 06/27/17 07:00 97 Room Air 06/27/17 06:00 74 06/27/17 04:00 98.0 1 118/69 (85) 06/26/17 20:27 3.00 06/25/17 07:58 45 Intake and Output 06/27/17 06/27/17 06/28/17 08:00 16:00 00:00 Intake Total 200 ml Output Total 1000 ml Balance -800 ml Result Diagram: 06/27/17 0500 06/27/17 0500 Other Results Laboratory Tests Test 06/27/17 05:00 White Blood Count 7.9 TH/MM3 Red Blood Count 3.73 MIL/MM3 Hemoglobin 10.1 GM/DL Hematocrit 31.4 % Mean Corpuscular Volume 84.1 FL Mean Corpuscular Hemoglobin 26.9 PG Mean Corpuscular Hemoglobin Concent 32.0 % Red Cell Distribution Width 16.6 % Platelet Count 176 TH/MM3 Mean Platelet Volume 9.6 FL Neutrophils (%) (Auto) 68.9 % Lymphocytes (%) (Auto) 24.2 % Monocytes (%) (Auto) 6.2 % Eosinophils (%) (Auto) 0.6 % Basophils (%) (Auto) 0.1 % Neutrophils # (Auto) 5.4 TH/MM3 Lymphocytes # (Auto) 1.9 TH/MM3 Monocytes # (Auto) 0.5 TH/MM3 Eosinophils # (Auto) 0.0 TH/MM3 Basophils # (Auto) 0.0 TH/MM3 CBC Comment DIFF FINAL Differential Comment Blood Urea Nitrogen 26 MG/DL Creatinine 0.83 MG/DL Random Glucose 256 MG/DL Calcium Level 7.8 MG/DL Sodium Level 138 MEQ/L Potassium Level 3.7 MEQ/L Chloride Level 99 MEQ/L Carbon Dioxide Level 32.5 MEQ/L Anion Gap 7 MEQ/L Estimat Glomerular Filtration Rate 95 ML/MIN Imaging Last Impressions Chest X-Ray 06/24/17 0000 Signed Impressions: Service Date/Time: Saturday, June 24, 2017 08:13 - CONCLUSION: Worsening bilateral infiltrates. Ramon Gale MD Chest CT 06/24/17 0000 Signed Impressions: Service Date/Time: Saturday, June 24, 2017 10:33 - CONCLUSION: 1. Acute, upper lobe predominant infiltrates, most likely infectious or inflammatory. A somewhat atypical distribution of pulmonary edema would also be conceivable. 2. Small to moderate right and moderate left pleural effusions have developed as well and with associated left greater than right basilar atelectasis. Ramon Gale MD Objective Remarks GENERAL: Elderly appearing male in mild respiratory distress SKIN: Warm and dry. HEAD: Normocephalic. EYES: No scleral icterus. No injection or drainage. NECK: Supple, trachea midline. No JVD or lymphadenopathy. CARDIOVASCULAR: Regular rate and rhythm without murmurs, gallops, or rubs. RESPIRATORY: O2 sat 98%, O2 sat dropped slowly to 94% without facemask, Labored breathing, Breath sounds equal and clear bilaterally. Some accessory muscle use. occasional fine rhonchi of the left lung lobes GASTROINTESTINAL: Abdomen soft, non-tender, nondistended. MUSCULOSKELETAL: No cyanosis, or edema. BACK: Nontender without obvious deformity. 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 [place]/ Xanax prn for anxiety/ pain CV: Monitor HR and BP keep MAP over 65 On Coreg 6.25mg BID, Aspirin, Lipitor. Lisinopril 5mg daily, Norvasc 5mg daily Cards is following-Dr. Richter Echo showed EF 35-40%, severe MR. s/p cath 06/25 showed no change in CAD, 3/4 grafts patent. For possible YURIY tomorrow Pulm: Continue with oxygen as kimmy keep sat >92% IV steroids: solumedrol 40mg IV q12h Bronchodilators, NIPPV PRN for resp distress, IS Pulm is following- Dr. Slaughter Check CXR US guided thoracentesis couldn't be performed as patient was on Plavix GI/liver: On PO diet : Monitor renal function, electrolytes replacement per protocol. On Lasix 40mg daily ID: Continue abx per ID ( Oxacillin) monitor for signs of infections ( Fever, WBC) BC 12/6 coag negative staph/ staph Aureus , BC 12/8: No growth so far Strep pneumonia and legionella urinary Ag negative 06/20 06/20 sputum: normal resp luz. For YURIY today Endo: DM2, hypothyroid On SSI, Levemir on hold Cont levothyroxine 100 daily heme: Monitor CBC, Pain Management: Cont Lyrica 100mg TID and Nortriptyline HS (home med) Tylenol 650mg q6 PRN pain. [place] when necessary DVT GI prophylaxis - Teds SCDs - Subcutaneous heparin - Pepcid for GI prophylaxis Will sign off and transfer care to [facility] Level 3 Frank Castaneda MD Jun 27, 2017 08:24
[2017-06-27] MEDS: HEPARIN SODIUM - SQ 10,000 UNITS/ML VIAL SQ SCH ×2 (08:33→19:25)
[2017-06-27] MEDS: LISINOPRIL 5 MG TAB PO SCH (08:33)
[2017-06-27] MEDS: amLODIPine BESYLATE 5 MG TAB PO SCH (08:33)
[2017-06-27] MEDS: FAMOTIDINE 20 MG TAB PO SCH ×2 (08:33→19:23)
[2017-06-27] MEDS: CYANOCOBALAMIN 1,000 MCG TAB PO SCH (08:33)
[2017-06-27] MEDS: PREGABALIN 100 MG CAP PO SCH ×3 (08:33→17:57)
[2017-06-27] MEDS: CARVEDILOL 6.25 MG TAB PO SCH ×2 (08:33→19:24)
[2017-06-27] MEDS: ASPIRIN EC 81 MG TABEC PO SCH (08:33)
[2017-06-27] MEDS: FUROSEMIDE 40 MG/4 ML VIAL IV PUSH SCH (08:34)
[2017-06-27] MEDS: SODIUM CHLORIDE 0.9% FLUSH 10 ML FLUSH IV FLUSH SCH ×2 (08:34→19:26)
[2017-06-27] MEDS: DOCUSATE SODIUM 50 MG/SENNA 8.6 MG TAB PO SCH ×2 (08:47→19:25)
[2017-06-27] MEDS: RESP: ALBUTEROL 2.5 MG/IPRATROPIUM 0.5 MG NEB (SCH) INH ×4 (09:04→20:49)
--- NOTE | 2017-06-27 09:14 | RADRPT ---
EXAM DATE/TIME: 06/27/2017 08:34 [facility] COMPARISON: CHEST SINGLE AP, June 24, 2017, 8:13. INDICATIONS : Short of breath. Indication reads Infiltrate. MEDICAL HISTORY : Seizures. Cardiovascular disease Hypertension. GERD; Diabetes, Peripheal neuropathy SURGICAL HISTORY : CABG. Appendectomy. ENCOUNTER: Subsequent ACUITY: 1 week PAIN SCORE: 0/10 LOCATION: Bilateral chest FINDINGS: Interstitial disease throughout both lungs characteristic of pulmonary edema has significantly improv ed. There is persistent bibasilar opacity consistent with underlying airspace disease and small effus ions. Cardiomediastinal structures are stable. Postoperative changes from prior CABG are again noted. CONCLUSION: 1. Significant improvement with near total resolution of pulmonary edema. 2. Persistent bibasilar opacity consistent with bilateral effusions and underlying airspace disease. 3. Status post CABG. Thom Ramachandran MD on June 27, 2017 at 9:11 Board Certified Radiologist. This report was verified electronically.
--- NOTE | 2017-06-27 13:15 | PD.CARD.PN ---
Subjective Subjective Remarks Did well overnight No complaints Doing much better, on room air Objective Medications Current Medications Medications (Trade) Dose Ordered Sig/Nuzhat Route Start Time Stop Time Status Last Admin (Norvasc) 5 mg DAILY PO 06/21/17 09:00 06/27/17 08:33 (Ecotrin Ec) 81 mg DAILY PO 06/21/17 09:00 06/27/17 08:33 (Lipitor) 80 mg HS PO 06/20/17 21:00 06/26/17 21:20 (Coreg) 6.25 mg BID PO 06/20/17 21:00 06/27/17 08:33 (Plavix) 75 mg DAILY PO 06/21/17 09:00 Future Hold 06/24/17 08:55 (Synthroid) 100 mcg DAILY@06 PO 06/21/17 06:00 06/27/17 04:29 (Pamelor) 75 mg HS PO 06/20/17 21:00 06/26/17 21:20 (Lyrica) 100 mg TID PO 06/21/17 09:00 06/27/17 08:33 (Vitamin B12) 1,000 mcg DAILY PO 06/21/17 09:00 06/27/17 08:33 (NS Flush) 2 ml UNSCH PRN IV FLUSH 06/20/17 19:00 (NS Flush) 2 ml BID IV FLUSH 06/20/17 21:00 06/27/17 08:34 (Tylenol) 650 mg Q6H PRN PO 06/20/17 19:00 06/23/17 17:51 (Zofran Inj) 4 mg Q6H PRN IV PUSH 06/20/17 19:00 (Duoneb Neb) 1 ampule Q2HR NEB PRN INH 06/20/17 19:00 Miscellaneous Information 1 Q361D XX 06/20/17 19:00 (Chlorhexidine 2% Cloth) Taper DAILY@04 TOP 06/21/17 04:00 06/17/18 03:59 06/27/17 01:00 (Chlorhexidine 2% Cloth) 3 pack UNSCH PRN TOP 06/20/17 19:00 (Afua-Colace) 1 tab BID PO 06/20/17 21:00 06/26/17 21:20 (Milk Of Magnesia Liq) 30 ml Q12H PRN PO 06/20/17 19:00 (Senokot) 17.2 mg Q12H PRN PO 06/20/17 19:00 (Dulcolax Supp) 10 mg DAILY PRN RECTAL 06/20/17 19:00 (Lactulose Liq) 30 ml DAILY PRN PO 06/20/17 19:00 Azithromycin 500 mg/Sodium Chloride 250 ml @ 250 mls/hr Q24H IV 06/21/17 18:00 06/26/17 17:55 (Dulac 10-325 Mg) 1 tab Q6H PRN PO 06/21/17 12:15 06/27/17 12:46 (Xanax) 0.5 mg Q6H PRN PO 06/21/17 12:15 06/27/17 12:45 (SoluMEDROL INJ) 40 mg Q12H IV PUSH 06/22/17 15:00 06/27/17 04:29 (D50w (Vial) Inj) 50 ml UNSCH PRN IV PUSH 06/22/17 08:30 (Glucagon Inj) 1 mg UNSCH PRN OTHER 06/22/17 08:30 (NovoLIN R SUPPLEMENTAL SCALE) 1 Q4H SQ 06/22/17 09:00 06/27/17 04:35 Oxacillin Sodium 2 gm/Sodium Chloride 100 ml @ 200 mls/hr Q4H IV 06/22/17 17:00 06/27/17 08:34 (Lasix Inj) 40 mg DAILY IV PUSH 06/24/17 09:00 06/27/17 08:34 (Prinivil) 5 mg DAILY PO 06/24/17 09:00 06/27/17 08:33 (Duoneb Neb) 1 ampule QID NEB INH 06/24/17 16:00 06/27/17 09:04 (Heparin Inj) 5,000 units Q12HR SQ 06/26/17 16:00 06/27/17 08:33 Potassium Chloride 100 ml @ 50 mls/hr Q2H PRN IV 06/26/17 08:30 Potassium Chloride 100 ml @ 50 mls/hr Q2H PRN IV 06/26/17 08:30 (K-Lyte Cl Eff) 50 meq UNSCH PRN PO 06/26/17 08:30 Potassium Chloride 100 ml @ 25 mls/hr UNSCH PRN IV 06/26/17 08:30 Potassium Chloride 100 ml @ 50 mls/hr Q2H PRN IV 06/26/17 08:30 Magnesium Sulfate 4 gm/Sodium Chloride 100 ml @ 50 mls/hr UNSCH PRN IV 06/26/17 08:30 (Mag-Ox) 800 mg UNSCH PRN PO 06/26/17 08:30 Magnesium Sulfate 2 gm/Sodium Chloride 100 ml @ 50 mls/hr UNSCH PRN IV 06/26/17 08:30 (K-Phos) 2,000 mg Q4H PRN PO 06/26/17 08:30 Sodium Phosphate 30 mmol/Sodium Chloride 250 ml @ 42 mls/hr UNSCH PRN IV 06/26/17 08:30 (K-Phos) 2,000 mg UNSCH PRN PO/TUBE 06/26/17 08:30 Potassium Phosphate 30 mmol/ Sodium Chloride 260 ml @ 42 mls/hr UNSCH PRN IV 06/26/17 08:30 (Pepcid) 20 mg BID PO 06/26/17 12:00 06/27/17 08:33 Vital Signs / I&O Vital Signs Date Time Temp Pulse Resp B/P (MAP) Pulse Ox O2 Delivery O2 Flow Rate FiO2 06/27/17 09:07 96 Nasal Cannula 3.00 06/27/17 07:00 97 Room Air 06/27/17 06:00 74 06/27/17 04:00 98.0 77 1 118/69 (85) 100 06/27/17 04:00 77 06/27/17 02:00 72 06/27/17 00:00 98.2 76 12 112/68 (83) 100 06/27/17 00:00 76 06/26/17 22:00 79 06/26/17 20:27 99 Nasal Cannula 3.00 06/26/17 20:00 97.7 84 16 95/60 (72) 93 06/26/17 20:00 84 06/26/17 19:00 99 Nasal Cannula 3.00 06/26/17 18:00 90 06/26/17 17:00 82 06/26/17 16:00 79 06/26/17 16:00 98.0 79 12 114/69 (84) 99 06/26/17 15:00 82 06/26/17 14:00 80 I/O 06/26/17 06/26/17 06/26/17 06/27/17 06/27/17 06/27/17 07:00 15:00 23:00 07:00 15:00 23:00 Intake Total 450 ml 200 ml 700 ml 300 ml Output Total 1250 ml 1000 ml 1000 ml Balance -800 ml 200 ml -300 ml -700 ml Intake Oral 150 ml 350 ml IV Total 300 ml 200 ml 350 ml 300 ml Output Urine Total 1250 ml 1000 ml 1000 ml # Bowel Movements 0 0 Physical Exam GENERAL: NAD, AAOx3 SKIN: Warm and dry. HEAD: Atraumatic. Normocephalic. EYES: Pupils equal and round. No scleral icterus. No injection or drainage. ENT: No nasal bleeding or discharge. Mucous membranes pink and moist. NECK: Trachea midline. No JVD. CARDIOVASCULAR: Regular rate and rhythm. 2/6 holosystolic murmur noted at the apex RESPIRATORY: No accessory muscle use. Decreased breath sounds bilaterally GASTROINTESTINAL: Abdomen soft, non-tender, nondistended. Hepatic and splenic margins not palpable. MUSCULOSKELETAL: Extremities without clubbing, cyanosis, or edema. RLE with AKA. Left radial no hematoma, neurovascularly intact distally NEUROLOGICAL: Awake and alert. No obvious cranial nerve deficits. Motor grossly within normal limits. Five out of 5 muscle strength in the arms and legs. Normal speech. PSYCHIATRIC: Appropriate mood and affect; insight and judgment normal. Laboratory Laboratory Tests Test 06/27/17 05:00 White Blood Count 7.9 TH/MM3 Red Blood Count 3.73 MIL/MM3 Hemoglobin 10.1 GM/DL Hematocrit 31.4 % Mean Corpuscular Volume 84.1 FL Mean Corpuscular Hemoglobin 26.9 PG Mean Corpuscular Hemoglobin Concent 32.0 % Red Cell Distribution Width 16.6 % Platelet Count 176 TH/MM3 Mean Platelet Volume 9.6 FL Neutrophils (%) (Auto) 68.9 % Lymphocytes (%) (Auto) 24.2 % Monocytes (%) (Auto) 6.2 % Eosinophils (%) (Auto) 0.6 % Basophils (%) (Auto) 0.1 % Neutrophils # (Auto) 5.4 TH/MM3 Lymphocytes # (Auto) 1.9 TH/MM3 Monocytes # (Auto) 0.5 TH/MM3 Eosinophils # (Auto) 0.0 TH/MM3 Basophils # (Auto) 0.0 TH/MM3 CBC Comment DIFF FINAL Differential Comment Blood Urea Nitrogen 26 MG/DL Creatinine 0.83 MG/DL Random Glucose 256 MG/DL Calcium Level 7.8 MG/DL Sodium Level 138 MEQ/L Potassium Level 3.7 MEQ/L Chloride Level 99 MEQ/L Carbon Dioxide Level 32.5 MEQ/L Anion Gap 7 MEQ/L Estimat Glomerular Filtration Rate 95 ML/MIN Imaging Last 24 hours Impressions Chest X-Ray 06/27/17 0000 Signed Impressions: Service Date/Time: Tuesday, June 27, 2017 08:34 - CONCLUSION: 1. Significant improvement with near total resolution of pulmonary edema. 2. Persistent bibasilar opacity consistent with bilateral effusions and underlying airspace disease. 3. Status post CABG. Thom Ramachandran MD Assessment and Plan Problem List: (1) Mitral regurgitation ICD Codes: I34.0 - Nonrheumatic mitral (valve) insufficiency (2) NSTEMI (non-ST elevated myocardial infarction) ICD Codes: I21.4 - Non-ST elevation (NSTEMI) myocardial infarction Status: Acute (3) Hx of CABG ICD Codes: Z95.1 - Presence of aortocoronary bypass graft (4) Anemia ICD Codes: D64.9 - Anemia, unspecified (5) DM (6) PVD (peripheral vascular disease) ICD Codes: I73.9 - Peripheral vascular disease, unspecified (7) Shortness of breath ICD Codes: R06.02 - Shortness of breath Status: Acute (8) Tobacco abuse ICD Codes: Z72.0 - Tobacco abuse Status: Chronic Assessment and Plan 1) EF 35-40% with severe MR Huge change compared to previous Diagnostic cardiac catheterization showing no change in CAD, 3/4 grafts patent as before Plan YURIY today, bacteremia with such a change in MR to rule out endocarditis (although possible contaminant) 2) SOB due to CHF from MR 3) Attempt to diuresis as possible 4) Bacteremia 4/4 bottles positive (possible contaminant) ID following Further cultures so far negative 5) Pleural effusion Would benefit from thoracentesis, but will only do if off Plavix As no change to CAD, and troponin is a Type 2 spill... will plan to hold for thoracentesis and restart afterwards Anupam Richter DO Jun 27, 2017 13:15
[2017-06-27] MEDS: AZITHROMYCIN INJ 500 MG in SODIUM CHLOR 0.9% 250 ML INJ 250 ML IV SCH (17:58)
--- NOTE | 2017-06-27 18:00 | RADRPT ---
EXAM DATE/TIME: 06/27/2017 17:16 [facility] COMPARISON: No previous studies available for comparison. INDICATIONS : Preop mitral valve replacement. MEDICAL HISTORY : Myocardial infarction. Hypercholesterolemia. Arthritis. Thyroid disease. Peripheral vascular disease. Neuropathy. Seizures. Coronary artery disease. Hyperlipidemia. HTN. Esophageal ulcer. GERD. Bulging disc. Diabetes. Depression. Anxiety. Tobacco use. SURGICAL HISTORY : Tonsillectomy. Angioplasty. Appendectomy. CABG. L5-S1 fusions. Esophageal stricture. Exploratory left brachial plexis. Colectomy. Left shoulder blade. Right leg pin knee to ankle. Hydrocele surgery x2. ENCOUNTER: Initial ACUITY: 1 day PAIN SCORE: 0/10 LOCATION: Bilateral neck PEAK SYSTOLIC VELOCITIES (cm/sec): ICA/CCA RATIO: Right: 2.7 Left: 1.6 ICA: Right: 113 Left: 101 CCA: Right: 41 Left: 63 ECA: Right: 58 Left: 72 VERTEBRAL: Right: 48 antegrade Left: 35 antegrade Elevated flow velocities and ICA/CCA ratios have been found to correlate with increased degrees of vessel stenosis, calculated as percentage of diameter relative to a normal segment of distal ICA/CCA FINDINGS: Moderate visible plaque at the carotid bifurcation bilaterally. Mild plaque in the remainder of the c arotid arteries. Peak systolic velocities are within normal range. Elevated PSV ratio on the right. CONCLUSION: 1. Velocities are within normal range. However, elevated PSV ratio on the right could indicate a mode rate stenosis. Channing Camara MD on June 27, 2017 at 17:54 Board Certified Radiologist. This report was verified electronically.
[2017-06-27] MEDS: NORTRIPTYLINE HCL 25 MG CAP PO SCH (19:24)
[2017-06-27] MEDS: ATORVASTATIN 80 MG TAB PO SCH (19:24)
--- NOTE | 2017-06-27 23:43 | ECHRPT ---
Indication: SEVERE MR CONCLUSIONS Mildly dilated left ventricle. The left ventricular systolic function is [id number] reduced with an estimated ejection fra ction in the range of 35-40%. Patient was given Neosynephrine to increase blood pressure to normal which showed systolic flow reve rsal in the pulmonary veins consistent with severe mitral regurgitation. The mitral valve regurgitation jet is directed posteriorly, appears to be due to tethering of the po sterior leaflet. No vegetations noted. BP: 107 / 66 HR: Rhythm: Sinus MEASUREMENTS (Male / Female) Normal Values Technical Quality:Fair DOPPLER MR ERLakshmi PISA 2.3 cm Medications Complications Proc. Components Anesthesia at beside for sedation. FINDINGS LEFT VENTRICLE Mildly dilated left ventricle. The left ventricular systolic function is [id number] reduced with an estimated ejection fra ction in the range of 35-40%. There is global left ventricular dysfunction. RIGHT VENTRICLE The right ventricular size is normal. The right ventricular systoilc function is mildly decreased. LEFT ATRIUM The left atrial size is moderately dilated. RIGHT ATRIUM The right atrial size is mildly dilated. ATRIAL APPENDAGES Normal left atrial appendage size with no evidence of thrombus formation. ATRIAL SEPTUM No atrial level shunt is demonstrated by color flow Doppler or agitated saline imaging. AORTA Descending aorta with no dissection. MITRAL VALVE Structurally normal mitral valve. Severe mitral valve regurgitation. The mitral valve regurgitation jet is directed posteriorly. Patient was given Neosynephrine to increase blood pressure to normal which showed systolic flow reversal in the pulmonary veins consistent with severe mitral regurgitation. AORTIC VALVE Trileaflet aortic valve. No aortic valve regurgitation. No aortic valve stenosis. TRICUSPID VALVE Structurally normal tricuspid valve. There is trace tricuspid valve regurgitation. VESSELS Grossly normal. No pulmonic regurgitation noted. nAupam Richter DO (Electronically Signed) Final Date:27 June 2017 23:42
[2017-06-28] VITALS (31 sets, daily range): BP systolic 104–144; BP diastolic 59–81; PULSE 66–98; RESP 6–20; TEMP 97.5–98.4; O2SAT 90–100
[2017-06-28] MEDS: OXACILLIN INJ 2 GM in SODIUM CHLORIDE 0.9% INJ 100 ML IV SCH ×5 (00:13→16:37)
[2017-06-28] MEDS: INSULIN NovoLIN REGULAR SUPPLEMENTAL SCALE SQ SCH ×6 (00:13→20:37)
[2017-06-28] MEDS: RESP: ALBUTEROL 2.5 MG/IPRATROPIUM 0.5 MG NEB (PRN) INH ×2 (01:45→16:57)
[2017-06-28] MEDS: CHLORHEXIDINE GLUCONATE 2 % 1 PACK (2 CLOTHS) TOP SCH (02:20)
[2017-06-28] MEDS: methylPREDNISolone SOD SUCC 40 MG/1 ML VIAL IV PUSH SCH ×2 (02:26→14:12)
[2017-06-28] MEDS: ACETAMINOPHEN/HYDROcodone 325 MG/10 MG TAB PO PRN ×4 (02:36→20:35)
[2017-06-28] MEDS: LEVOTHYROXINE SODIUM 100 MCG TAB PO SCH (04:33)
[2017-06-28 05:14] LABS: AUTOMATED NEUTROPHIL # 14.6 TH/MM3 (1.8-7.7); BASOPHIL % 0.1 % (0.0-2.0); HEMATOCRIT 36.5 % (39.0-51.0); HEMO FLAGS DIFF FINAL; LYMPH % 7.1 % (9.0-44.0); LYMPHOCYTE # 1.2 TH/MM3 (1.0-4.8); MEAN CELL VOLUME 84.3 FL (80.0-100.0); MEAN CORPUSCULAR HEMOGLOBIN 26.5 PG (27.0-34.0); MEAN CORPUSCULAR HGB CONC 31.4 % (32.0-36.0); MONO % 4.7 % (0.0-8.0); NEUT % 88.1 % (16.0-70.0); PLATELET COUNT 222 TH/MM3 (150-450); RED BLOOD COUNT 4.33 MIL/MM3 (4.50-5.90); RED CELL DISTRIBUTION WIDTH 16.4 % (11.6-17.2); WHITE BLOOD COUNT 16.6 TH/MM3 (4.0-11.0)
[2017-06-28 05:38] LABS: BICARBONATE 29.3 MEQ/L (21.0-32.0); POTASSIUM 3.6 MEQ/L (3.5-5.1)
[2017-06-28] MEDS: HEPARIN SODIUM - SQ 10,000 UNITS/ML VIAL SQ SCH ×2 (07:52→20:36)
[2017-06-28] MEDS: FUROSEMIDE 40 MG/4 ML VIAL IV PUSH SCH (07:52)
[2017-06-28] MEDS: LISINOPRIL 5 MG TAB PO SCH (07:53)
[2017-06-28] MEDS: amLODIPine BESYLATE 5 MG TAB PO SCH (07:53)
[2017-06-28] MEDS: CARVEDILOL 6.25 MG TAB PO SCH ×2 (07:53→20:35)
[2017-06-28] MEDS: CYANOCOBALAMIN 1,000 MCG TAB PO SCH (07:53)
[2017-06-28] MEDS: ASPIRIN EC 81 MG TABEC PO SCH (07:53)
[2017-06-28] MEDS: DOCUSATE SODIUM 50 MG/SENNA 8.6 MG TAB PO SCH ×2 (07:53→20:38)
[2017-06-28] MEDS: FAMOTIDINE 20 MG TAB PO SCH ×2 (07:53→20:35)
[2017-06-28] MEDS: RESP: ALBUTEROL 2.5 MG/IPRATROPIUM 0.5 MG NEB (SCH) INH ×2 (07:56→12:16)
[2017-06-28] MEDS: SODIUM CHLORIDE 0.9% FLUSH 10 ML FLUSH IV FLUSH SCH ×2 (07:57→20:37)
[2017-06-28] MEDS: PREGABALIN 100 MG CAP PO SCH ×3 (08:20→17:22)
[2017-06-28] MEDS: ALPRAZolam 0.5 MG TAB PO PRN ×3 (08:26→20:35)
--- NOTE | 2017-06-28 08:26 | MB ---
cc: JAMIN IRWIN MD DATE OF CONSULTATION 06/27/2017 HISTORY OF THE PRESENT ILLNESS This is a 62-year-old male with multiple comorbidities including diabetes mellitus, severe arterial disease, post amputation of the gxscm-tia-ziji right leg, chronic tobacco abuse, has been seen before by Dr. Richter who had a recent cardiac cath April 18, 2017 which he has had prior coronary artery bypass grafting x4 with OCONNELL to the LAD, saphenous vein graft to the OM and saphenous vein graft to the PDA, saphenous vein graft to the posterior lateral on August 31, 2006, and the cath on April 18 showed patent OCONNELL to the LAD, patent saphenous vein graft to the RCA. The saphenous vein graft to the PDA showed disease. He was admitted via the emergency department on 06/20 for respiratory distress. O2 sat were in the 70s. He was given an IV Solu-Medrol, DuoNebs. He required C-PAP and BiPap with some improvement. He has been in the ICU since. He underwent echocardiogram which showed EF of 35-40%, left ventricular systolic function moderate to severely reduced. The left atrium was however, moderately to severely dilated. The mitral valve showed systolic flow reversal with severe mitral regurgitation. No aortic stenosis or regurgitation, some mild tricuspid regurgitation, this was different from the echocardiogram that was done in April which the patient at that time had a normal systolic function with EF of 65% mild MR, mild tricuspid regurgitation. We were consulted secondary to the severe mitral regurgitation. The patient has also been worked up completely also with infectious disease. The patient was found to have MSSA bacteremia and has been treated with oxacillin and Zithromax. The patient has had a repeat set of blood cultures on 06/22 with negative cultures, however the cause of the initial bacteremia is still unknown. The patient underwent ____ per Dr. Richter. He did not see any vegetation on the valve, the formal report is still pending. PAST MEDICAL HISTORY The patient's past medical history includes: 1. Hypertension. 2. Diabetes mellitus. 3. Hyperlipidemia. 4. Chronic pain syndrome. 5. Gastroesophageal reflux with prior esophageal ulcerations requiring dilatation in the past. 6. Degenerative arthritis of both the cervical and lumbar sacral spine. 7. Severe peripheral arterial disease with prior right rkamr-yii-ygjo amputation June 17, 2016 that was secondary to gangrene of the right toe and osteomyelitis of the right foot. The patient has since been able to wear a prosthetic device and uses a walker. 8. He also has a history of seizure disorders probable secondary to a hypoglycemic events. 9. He has been admitted in the past for diabetic ketoacidosis. 10. History of hypothyroidism. PAST SURGICAL HISTORY Other surgeries include: 1. Appendectomy. 2. Partial colon resection. 3. Coronary artery bypass grafting as above. 4. Fusion of the lumbosacral spine. ALLERGIES He has no known allergies listed. MEDICATIONS Home meds include: 1. Plavix 75. 2. Atorvastatin. 3. Coreg. 4. Amlodipine. 5. Lisinopril. 6. Aspirin. 7. [place]. 8. Lyrica. 9. Nortriptyline. 10. Hydrochlorothiazide. 11. The last dose of the Plavix was on 06/20. 12. He is on Levemir at home insulin sliding scale. 13. Synthroid. REVIEW OF SYSTEMS As above in the HPI. Other 12 systems unremarkable. FAMILY HISTORY Noncontributory SOCIAL HISTORY The patient , two children. Smoked for four years one-pack, quit a year and then restarted a month ago. Quit drinking alcohol in 2004. No illicit drugs or IV drug use per the patient. He does live with a roommate here in [place]. PHYSICAL EXAMINATION VITAL SIGNS: Blood pressure 107/60, heart rate 70, temperature max 98.1. GENERAL: The patient is awake, alert, sitting up on the side of the bed on a nasal cannula. HEENT: head is normocephalic, somewhat disheveled. He has got rather long unkempt hair and [place]. NECK: Supple. No JVD. CARDIOVASCULAR: Heart sounds S1-S2 regular rate and rhythm. Soft, systolic murmur. LUNGS: Diminished in the bases. No audible wheezing or rhonchi. ABDOMEN: Soft, flat, nontender. No masses or organomegaly. EXTREMITIES: Right nmbax-yad-okix amputation with a well-healed incision. The left foot has a patchy area of some healing abrasions to the anterior portion of the lower leg. Doppler pulses only. EKG showed sinus tachycardia, first-degree AV block, left bundle-branch block, poor R-wave progression. LABORATORY FINDINGS Shows hemoglobin 10.1, hematocrit 31, white cell count 7.9, platelet count 176. Sodium 138. Potassium 3.7, BUN 26, creatinine 0.83, glucose is labile from 60-256. Phos 3.1. INR 1.1. Urinalysis was negative on 06/21. MRSA screen negative. Micro showed 4/4 bottles staph aureus MSSA on 06/20. Repeat cultures on 06/22 are negative. Sputum was unremarkable. Legionella was negative and Streptococcus was negative in the urine. IMAGING Radiological exams, a chest CT was on 06/24 which showed some upper lobe predominance infiltrates. Some atypical pulmonary edema moderate right and moderate left effusions. IMPRESSION This is a 62-year-old male again with multiple comorbidities re-admitted with COPD, CHF exacerbation, severe mitral regurgitation, a change from his echocardiogram back in April, repeat catheterization showed 3/4 grafts patent, ejection fraction of 35-40%. We have been asked to evaluate for mitral valve repair versus replacement. The patient would be a redo sternotomy. He does have multiple risk factors including diabetes, peripheral arterial disease, low ejection fraction of 35-40%, recent bacteremia with MSSA which needs to be cleared by infectious disease. He continues on IV antibiotics including oxacillin and Zithromax. He also had some mildly elevated troponins and was ruled in for non-ST elevation myocardial infarction. At this time pulmonary function tests are pending, carotid ultrasound pending. The cardiac films and echo will be reviewed by both Dr. Jamin Irwin and Dr. Ofe Oviedo for evaluation for candidacy. If possible I would recommend the patient's medical therapy be maximized at this time for possible consideration of the patient being then discharged home and follow up as an outpatient for surgery and again after the patient is completely cleared by infectious disease. DICTATED BY: ARIC Mojica Jamin WELLS /3:04 PM /8:20 AM
--- NOTE | 2017-06-28 10:28 | PD.CARD.PN ---
Subjective Subjective Remarks Did well overnight No complaints Doing much better, with some episodes of SOB of O2 Objective Medications Current Medications Medications (Trade) Dose Ordered Sig/Nuzhat Route Start Time Stop Time Status Last Admin (Norvasc) 5 mg DAILY PO 06/21/17 09:00 06/28/17 07:53 (Ecotrin Ec) 81 mg DAILY PO 06/21/17 09:00 06/28/17 07:53 (Lipitor) 80 mg HS PO 06/20/17 21:00 06/27/17 19:24 (Coreg) 6.25 mg BID PO 06/20/17 21:00 06/28/17 07:53 (Plavix) 75 mg DAILY PO 06/21/17 09:00 Future Hold 06/24/17 08:55 (Synthroid) 100 mcg DAILY@06 PO 06/21/17 06:00 06/28/17 04:33 (Pamelor) 75 mg HS PO 06/20/17 21:00 06/27/17 19:24 (Lyrica) 100 mg TID PO 06/21/17 09:00 06/28/17 08:20 (Vitamin B12) 1,000 mcg DAILY PO 06/21/17 09:00 06/28/17 07:53 (NS Flush) 2 ml UNSCH PRN IV FLUSH 06/20/17 19:00 (NS Flush) 2 ml BID IV FLUSH 06/20/17 21:00 06/28/17 07:57 (Tylenol) 650 mg Q6H PRN PO 06/20/17 19:00 06/23/17 17:51 (Zofran Inj) 4 mg Q6H PRN IV PUSH 06/20/17 19:00 (Duoneb Neb) 1 ampule Q2HR NEB PRN INH 06/20/17 19:00 06/28/17 01:45 Miscellaneous Information 1 Q361D XX 06/20/17 19:00 (Chlorhexidine 2% Cloth) Taper DAILY@04 TOP 06/21/17 04:00 06/17/18 03:59 06/27/17 01:00 (Chlorhexidine 2% Cloth) 3 pack UNSCH PRN TOP 06/20/17 19:00 (Afua-Colace) 1 tab BID PO 06/20/17 21:00 06/28/17 07:53 (Milk Of Magnesia Liq) 30 ml Q12H PRN PO 06/20/17 19:00 (Senokot) 17.2 mg Q12H PRN PO 06/20/17 19:00 (Dulcolax Supp) 10 mg DAILY PRN RECTAL 06/20/17 19:00 (Lactulose Liq) 30 ml DAILY PRN PO 06/20/17 19:00 Azithromycin 500 mg/Sodium Chloride 250 ml @ 250 mls/hr Q24H IV 06/21/17 18:00 06/27/17 17:58 (Ivanhoe 10-325 Mg) 1 tab Q6H PRN PO 06/21/17 12:15 06/28/17 08:26 (Xanax) 0.5 mg Q6H PRN PO 06/21/17 12:15 06/28/17 08:26 (SoluMEDROL INJ) 40 mg Q12H IV PUSH 06/22/17 15:00 06/28/17 02:26 (D50w (Vial) Inj) 50 ml UNSCH PRN IV PUSH 06/22/17 08:30 (Glucagon Inj) 1 mg UNSCH PRN OTHER 06/22/17 08:30 (NovoLIN R SUPPLEMENTAL SCALE) 1 Q4H SQ 06/22/17 09:00 06/28/17 07:58 Oxacillin Sodium 2 gm/Sodium Chloride 100 ml @ 200 mls/hr Q4H IV 06/22/17 17:00 06/28/17 08:15 (Lasix Inj) 40 mg DAILY IV PUSH 06/24/17 09:00 06/28/17 07:52 (Prinivil) 5 mg DAILY PO 06/24/17 09:00 06/28/17 07:53 (Duoneb Neb) 1 ampule QID NEB INH 06/24/17 16:00 06/28/17 07:56 (Heparin Inj) 5,000 units Q12HR SQ 06/26/17 16:00 06/28/17 07:52 Potassium Chloride 100 ml @ 50 mls/hr Q2H PRN IV 06/26/17 08:30 Potassium Chloride 100 ml @ 50 mls/hr Q2H PRN IV 06/26/17 08:30 (K-Lyte Cl Eff) 50 meq UNSCH PRN PO 06/26/17 08:30 Potassium Chloride 100 ml @ 25 mls/hr UNSCH PRN IV 06/26/17 08:30 Potassium Chloride 100 ml @ 50 mls/hr Q2H PRN IV 06/26/17 08:30 Magnesium Sulfate 4 gm/Sodium Chloride 100 ml @ 50 mls/hr UNSCH PRN IV 06/26/17 08:30 (Mag-Ox) 800 mg UNSCH PRN PO 06/26/17 08:30 Magnesium Sulfate 2 gm/Sodium Chloride 100 ml @ 50 mls/hr UNSCH PRN IV 06/26/17 08:30 (K-Phos) 2,000 mg Q4H PRN PO 06/26/17 08:30 Sodium Phosphate 30 mmol/Sodium Chloride 250 ml @ 42 mls/hr UNSCH PRN IV 06/26/17 08:30 (K-Phos) 2,000 mg UNSCH PRN PO/TUBE 06/26/17 08:30 Potassium Phosphate 30 mmol/ Sodium Chloride 260 ml @ 42 mls/hr UNSCH PRN IV 06/26/17 08:30 (Pepcid) 20 mg BID PO 06/26/17 12:00 06/28/17 07:53 Vital Signs / I&O Vital Signs Date Time Temp Pulse Resp B/P (MAP) Pulse Ox O2 Delivery O2 Flow Rate FiO2 06/28/17 09:27 20 06/28/17 09:27 20 06/28/17 08:12 97.6 83 20 144/81 (102) 100 06/28/17 08:00 Nasal Cannula 1.00 06/28/17 07:58 100 Nasal Cannula 2.00 06/28/17 07:57 93 21 06/28/17 06:00 72 06/28/17 05:00 70 06/28/17 04:20 100 Nasal Cannula 5.00 06/28/17 04:00 68 06/28/17 04:00 98.4 70 17 113/60 (77) 94 06/28/17 03:00 74 06/28/17 02:00 70 06/28/17 01:45 100 Simple Mask 8.00 06/28/17 01:15 Simple Mask 7.00 06/28/17 01:15 81 06/28/17 01:15 98.4 79 17 111/59 (76) 90 06/28/17 00:00 78 06/28/17 00:00 97.8 78 6 104/65 (78) 100 06/27/17 22:00 76 06/27/17 20:49 100 Nasal Cannula 4.00 06/27/17 20:00 98.0 75 11 96/54 (68) 98 06/27/17 20:00 75 06/27/17 19:00 94 Nasal Cannula 2.00 06/27/17 18:00 75 06/27/17 17:00 69 06/27/17 16:00 98.3 66 13 123/62 (82) 100 06/27/17 16:00 66 06/27/17 15:00 73 06/27/17 14:00 67 06/27/17 13:00 70 06/27/17 12:00 74 06/27/17 12:00 98.1 74 18 107/66 (80) 99 06/27/17 11:00 74 I/O 06/27/17 06/27/17 06/27/17 06/28/17 06/28/17 06/28/17 07:00 15:00 23:00 07:00 15:00 23:00 Intake Total 300 ml 200 ml 350 ml 210 ml Output Total 1000 ml 1250 ml 900 ml Balance -700 ml 200 ml -900 ml -690 ml IV Total 300 ml 200 ml 350 ml 210 ml Output Urine Total 1000 ml 1250 ml 900 ml # Bowel Movements 0 1 0 Physical Exam GENERAL: NAD, AAOx3 SKIN: Warm and dry. HEAD: Atraumatic. Normocephalic. EYES: Pupils equal and round. No scleral icterus. No injection or drainage. ENT: No nasal bleeding or discharge. Mucous membranes pink and moist. NECK: Trachea midline. No JVD. CARDIOVASCULAR: Regular rate and rhythm. 2/6 holosystolic murmur noted at the apex RESPIRATORY: No accessory muscle use. Decreased breath sounds bilaterally GASTROINTESTINAL: Abdomen soft, non-tender, nondistended. Hepatic and splenic margins not palpable. MUSCULOSKELETAL: Extremities without clubbing, cyanosis, or edema. RLE with AKA. Left radial no hematoma, neurovascularly intact distally NEUROLOGICAL: Awake and alert. No obvious cranial nerve deficits. Motor grossly within normal limits. Five out of 5 muscle strength in the arms and legs. Normal speech. PSYCHIATRIC: Appropriate mood and affect; insight and judgment normal. Laboratory Laboratory Tests Test 06/28/17 01:12 06/28/17 04:44 White Blood Count 16.6 TH/MM3 Red Blood Count 4.33 MIL/MM3 Hemoglobin 11.5 GM/DL Hematocrit 36.5 % Mean Corpuscular Volume 84.3 FL Mean Corpuscular Hemoglobin 26.5 PG Mean Corpuscular Hemoglobin Concent 31.4 % Red Cell Distribution Width 16.4 % Platelet Count 222 TH/MM3 Mean Platelet Volume 9.5 FL Neutrophils (%) (Auto) 88.1 % Lymphocytes (%) (Auto) 7.1 % Monocytes (%) (Auto) 4.7 % Eosinophils (%) (Auto) 0.0 % Basophils (%) (Auto) 0.1 % Neutrophils # (Auto) 14.6 TH/MM3 Lymphocytes # (Auto) 1.2 TH/MM3 Monocytes # (Auto) 0.8 TH/MM3 Eosinophils # (Auto) 0.0 TH/MM3 Basophils # (Auto) 0.0 TH/MM3 CBC Comment DIFF FINAL Differential Comment Blood Urea Nitrogen 29 MG/DL Creatinine 1.04 MG/DL Random Glucose 209 MG/DL Calcium Level 8.3 MG/DL Sodium Level 137 MEQ/L Potassium Level 3.6 MEQ/L Chloride Level 100 MEQ/L Carbon Dioxide Level 29.3 MEQ/L Anion Gap 8 MEQ/L Estimat Glomerular Filtration Rate 73 ML/MIN Assessment and Plan Problem List: (1) Mitral regurgitation ICD Codes: I34.0 - Nonrheumatic mitral (valve) insufficiency (2) NSTEMI (non-ST elevated myocardial infarction) ICD Codes: I21.4 - Non-ST elevation (NSTEMI) myocardial infarction Status: Acute (3) Hx of CABG ICD Codes: Z95.1 - Presence of aortocoronary bypass graft (4) Anemia ICD Codes: D64.9 - Anemia, unspecified (5) DM (6) PVD (peripheral vascular disease) ICD Codes: I73.9 - Peripheral vascular disease, unspecified (7) Shortness of breath ICD Codes: R06.02 - Shortness of breath Status: Acute (8) Tobacco abuse ICD Codes: Z72.0 - Tobacco abuse Status: Chronic Assessment and Plan 1) EF 35-40% with severe MR Huge change compared to previous Diagnostic cardiac catheterization showing no change in CAD, 3/4 grafts patent as before YURIY showing severe MR, appears to have tethering of the posterior leaflet Discussed with CT surgery and ID 2) SOB due to CHF from MR 3) Attempt to diuresis as possible 4) Bacteremia 4/4 bottles positive (possible contaminant) ID following Further cultures so far negative YURIY negative for vegetation 5) Pleural effusion Would benefit from thoracentesis, but will only do if off Plavix As no change to CAD, and troponin is a Type 2 spill... will plan to hold for thoracentesis and restart afterwards Anupam Richter DO Jun 28, 2017 10:28
--- NOTE | 2017-06-28 14:10 | PD.CAR.PN ---
CVT Progress Note Subjective/Hospital Course: 62-year-old male with multiple comorbidities including diabetes mellitus, severe arterial disease, post amputation of the nmyxt-dlq-ddmz right leg, chronic tobacco abuse, has been seen before by Dr. Richter who had a recent cardiac cath April 18, 2017 which he has had prior coronary artery bypass grafting x4 with OCONNELL to the LAD, saphenous vein graft to the OM and saphenous vein graft to the PDA, saphenous vein graft to the posterior lateral on August 31, 2006, and the cath on April 18 showed patent OCONNELL to the LAD, patent saphenous vein graft to the RCA. The saphenous vein graft to the PDA showed disease. He was admitted via the emergency department on 06/20 for respiratory distress. O2 sat were in the 70s. He was given an IV Solu-Medrol, DuoNebs. He required C-PAP and BiPap with some improvement. He has been in the ICU since. He underwent echocardiogram which showed EF of 35-40%, left ventricular systolic function moderate to severely reduced. The left atrium was however, moderately to severely dilated. The mitral valve showed systolic flow reversal with severe mitral regurgitation. No aortic stenosis or regurgitation, some mild tricuspid regurgitation, this was different from the echocardiogram that was done in April which the patient at that time had a normal systolic function with EF of 65% mild MR, mild tricuspid regurgitation. We were consulted secondary to the severe mitral regurgitation. The patient has also been worked up completely also with infectious disease. The patient was found to have MSSA bacteremia and has been treated with oxacillin and Zithromax. The patient has had a repeat set of blood cultures on 06/22 with negative cultures, however the cause of the initial bacteremia is still unknown. The patient underwent YURIY which showed no vegetations on valve , EF 35 % 06/28 await clearance from ID for surgery, would recommend pt recover completely from CHF and infection , will eval sts score , supportive care for now RISK SCORES About the STS Risk Calculator Procedure: MV Replacement Only Risk of Mortality: 7.861% Morbidity or Mortality: 47.005% Long Length of Stay: 29.502% Short Length of Stay: 8.455% Permanent Stroke: 1.86% Prolonged Ventilation: 35.333% DSW Infection: 0.51% Renal Failure: 14.015% Reoperation: 19.525% Objective: GENERAL: A&0 x 3 SKIN: Warm and dry. wound left anterior aspect lower leg HEAD: Normocephalic. EYES: No scleral icterus. No injection or drainage. NECK: Supple, trachea midline. No JVD or lymphadenopathy. CARDIOVASCULAR: Regular rate and rhythm soft systolic murmur no gallops, or rubs. RESPIRATORY: Breath sounds equal bilaterally. No accessory muscle use. diminished in bases few basilar crackles GASTROINTESTINAL: Abdomen soft, non-tender, nondistended. MUSCULOSKELETAL: No cyanosis, or edema. BACK: Nontender without obvious deformity. No CVA tenderness. Vital Signs Date Time Temp Pulse Resp B/P (MAP) Pulse Ox O2 Delivery O2 Flow Rate FiO2 06/28/17 13:44 24 06/28/17 12:00 97.6 71 19 117/62 (80) 97 06/28/17 09:27 20 06/28/17 08:12 97.6 83 20 144/81 (102) 100 06/28/17 08:00 78 06/28/17 08:00 Nasal Cannula 1.00 06/28/17 07:58 100 Nasal Cannula 2.00 06/28/17 07:57 93 21 06/28/17 06:00 72 06/28/17 05:00 70 06/28/17 04:20 100 Nasal Cannula 5.00 06/28/17 04:00 68 06/28/17 04:00 98.4 70 17 113/60 (77) 94 06/28/17 03:00 74 06/28/17 02:00 70 06/28/17 01:45 100 Simple Mask 8.00 06/28/17 01:15 Simple Mask 7.00 06/28/17 01:15 81 06/28/17 01:15 98.4 79 17 111/59 (76) 90 06/28/17 00:00 78 06/28/17 00:00 97.8 78 6 104/65 (78) 100 06/27/17 22:00 76 06/27/17 20:49 100 Nasal Cannula 4.00 06/27/17 20:00 98.0 75 11 96/54 (68) 98 06/27/17 20:00 75 06/27/17 19:00 94 Nasal Cannula 2.00 06/27/17 18:00 75 06/27/17 17:00 69 06/27/17 16:00 98.3 66 13 123/62 (82) 100 06/27/17 16:00 66 06/27/17 15:00 73 Labs: Laboratory Tests Test 06/28/17 04:44 White Blood Count 16.6 TH/MM3 (4.0-11.0) Red Blood Count 4.33 MIL/MM3 (4.50-5.90) Hemoglobin 11.5 GM/DL (13.0-17.0) Hematocrit 36.5 % (39.0-51.0) Mean Corpuscular Volume 84.3 FL (80.0-100.0) Mean Corpuscular Hemoglobin 26.5 PG (27.0-34.0) Mean Corpuscular Hemoglobin Concent 31.4 % (32.0-36.0) Red Cell Distribution Width 16.4 % (11.6-17.2) Platelet Count 222 TH/MM3 (150-450) Mean Platelet Volume 9.5 FL (7.0-11.0) Neutrophils (%) (Auto) 88.1 % (16.0-70.0) Lymphocytes (%) (Auto) 7.1 % (9.0-44.0) Monocytes (%) (Auto) 4.7 % (0.0-8.0) Eosinophils (%) (Auto) 0.0 % (0.0-4.0) Basophils (%) (Auto) 0.1 % (0.0-2.0) Neutrophils # (Auto) 14.6 TH/MM3 (1.8-7.7) Lymphocytes # (Auto) 1.2 TH/MM3 (1.0-4.8) Monocytes # (Auto) 0.8 TH/MM3 (0-0.9) Eosinophils # (Auto) 0.0 TH/MM3 (0-0.4) Basophils # (Auto) 0.0 TH/MM3 (0-0.2) CBC Comment DIFF FINAL Differential Comment Blood Urea Nitrogen 29 MG/DL (7-18) Creatinine 1.04 MG/DL (0.60-1.30) Random Glucose 209 MG/DL (74-106) Calcium Level 8.3 MG/DL (8.5-10.1) Sodium Level 137 MEQ/L (136-145) Potassium Level 3.6 MEQ/L (3.5-5.1) Chloride Level 100 MEQ/L (98-107) Carbon Dioxide Level 29.3 MEQ/L (21.0-32.0) Anion Gap 8 MEQ/L (5-15) Estimat Glomerular Filtration Rate 73 ML/MIN (>89) Result Diagram: 06/28/17 0444 06/28/17 0444 (1) Mitral regurgitation Plan: recommend clearance by infection disease, maximize CHF treatment will follow (2) NSTEMI (non-ST elevated myocardial infarction) (3) Hx of CABG (4) Anemia (5) DM (6) PVD (peripheral vascular disease) (7) Shortness of breath (8) Tobacco abuse [place] White Jun 28, 2017 14:10
[2017-06-28] MEDS: AZITHROMYCIN INJ 500 MG in SODIUM CHLOR 0.9% 250 ML INJ 250 ML IV SCH (17:22)
--- NOTE | 2017-06-28 17:56 | HHI.IDPN ---
Subjective Subjective Remarks YURIY negative for vegetation, but showed severe MR repeat blood clx are negative Antibiotics azithromycin oxacilllin Allergies: Coded Allergies: No Allergy Information Available (Unverified , 06/21/17) Objective . Vital Signs Date Time Temp Pulse Resp B/P (MAP) Pulse Ox O2 Delivery O2 Flow Rate FiO2 06/28/17 16:31 97.5 80 20 111/63 (79) 99 06/28/17 16:00 Nasal Cannula 1.00 06/28/17 16:00 71 06/28/17 15:36 12 06/28/17 15:00 72 06/28/17 14:00 80 06/28/17 14:00 Nasal Cannula 1.00 06/28/17 13:44 24 06/28/17 13:00 68 06/28/17 12:00 97.6 71 19 117/62 (80) 97 06/28/17 12:00 Nasal Cannula 1.00 06/28/17 12:00 67 06/28/17 11:00 66 06/28/17 10:00 Nasal Cannula 1.00 06/28/17 10:00 68 06/28/17 09:00 78 06/28/17 08:12 97.6 83 20 144/81 (102) 100 06/28/17 08:00 78 06/28/17 08:00 Nasal Cannula 1.00 06/28/17 07:58 100 Nasal Cannula 2.00 06/28/17 07:57 93 21 06/28/17 07:00 80 06/28/17 06:00 72 06/28/17 05:00 70 06/28/17 04:20 100 Nasal Cannula 5.00 06/28/17 04:00 68 06/28/17 04:00 98.4 70 17 113/60 (77) 94 06/28/17 03:00 74 06/28/17 02:00 70 06/28/17 01:45 100 Simple Mask 8.00 06/28/17 01:15 Simple Mask 7.00 06/28/17 01:15 81 06/28/17 01:15 98.4 79 17 111/59 (76) 90 06/28/17 00:00 78 06/28/17 00:00 97.8 78 6 104/65 (78) 100 06/27/17 22:00 76 06/27/17 20:49 100 Nasal Cannula 4.00 06/27/17 20:00 98.0 75 11 96/54 (68) 98 06/27/17 20:00 75 06/27/17 19:00 94 Nasal Cannula 2.00 06/27/17 18:00 75 06/28/17 06/28/17 06/29/17 15:00 23:00 07:00 Intake Total 680 ml 200 ml Output Total 1100 ml Balance 680 ml -900 ml Intake Oral 480 ml IV Total 200 ml 200 ml Output Urine Total 1100 ml # Voids 2 . Laboratory Tests Test 06/27/17 05:00 06/28/17 04:44 White Blood Count 7.9 TH/MM3 16.6 TH/MM3 Red Blood Count 3.73 MIL/MM3 4.33 MIL/MM3 Hemoglobin 10.1 GM/DL 11.5 GM/DL Hematocrit 31.4 % 36.5 % Mean Corpuscular Volume 84.1 FL 84.3 FL Mean Corpuscular Hemoglobin 26.9 PG 26.5 PG Mean Corpuscular Hemoglobin Concent 32.0 % 31.4 % Red Cell Distribution Width 16.6 % 16.4 % Platelet Count 176 TH/MM3 222 TH/MM3 Mean Platelet Volume 9.6 FL 9.5 FL Neutrophils (%) (Auto) 68.9 % 88.1 % Lymphocytes (%) (Auto) 24.2 % 7.1 % Monocytes (%) (Auto) 6.2 % 4.7 % Eosinophils (%) (Auto) 0.6 % 0.0 % Basophils (%) (Auto) 0.1 % 0.1 % Neutrophils # (Auto) 5.4 TH/MM3 14.6 TH/MM3 Lymphocytes # (Auto) 1.9 TH/MM3 1.2 TH/MM3 Monocytes # (Auto) 0.5 TH/MM3 0.8 TH/MM3 Eosinophils # (Auto) 0.0 TH/MM3 0.0 TH/MM3 Basophils # (Auto) 0.0 TH/MM3 0.0 TH/MM3 CBC Comment DIFF FINAL DIFF FINAL Differential Comment Laboratory Tests Test 06/27/17 05:00 06/28/17 04:44 06/28/17 13:50 Blood Urea Nitrogen 26 MG/DL 29 MG/DL Creatinine 0.83 MG/DL 1.04 MG/DL Random Glucose 256 MG/DL 209 MG/DL 315 MG/DL Calcium Level 7.8 MG/DL 8.3 MG/DL Sodium Level 138 MEQ/L 137 MEQ/L Potassium Level 3.7 MEQ/L 3.6 MEQ/L Chloride Level 99 MEQ/L 100 MEQ/L Carbon Dioxide Level 32.5 MEQ/L 29.3 MEQ/L Anion Gap 7 MEQ/L 8 MEQ/L Estimat Glomerular Filtration Rate 95 ML/MIN 73 ML/MIN Imaging Last Impressions Chest X-Ray 06/27/17 0000 Signed Impressions: Service Date/Time: Tuesday, June 27, 2017 08:34 - CONCLUSION: 1. Significant improvement with near total resolution of pulmonary edema. 2. Persistent bibasilar opacity consistent with bilateral effusions and underlying airspace disease. 3. Status post CABG. Thom Ramachandran MD Carotid Artery Ultrasound 06/27/17 0000 Signed Impressions: Service Date/Time: Tuesday, June 27, 2017 17:16 - CONCLUSION: 1. Velocities are within normal range. However, elevated PSV ratio on the right could indicate a moderate stenosis. Channing Camara MD Chest CT 06/24/17 0000 Signed Impressions: Service Date/Time: Saturday, June 24, 2017 10:33 - CONCLUSION: 1. Acute, upper lobe predominant infiltrates, most likely infectious or inflammatory. A somewhat atypical distribution of pulmonary edema would also be conceivable. 2. Small to moderate right and moderate left pleural effusions have developed as well and with associated left greater than right basilar atelectasis. Ramon Gale MD Physical Exam CONSTITUTIONAL/GENERAL: This is an adequately nourished patient, in no apparent distress. TUBES/LINES/DRAINS: SKIN: No jaundice, rashes, or lesions. . Skin temperature appropriate. Not diaphoretic. EYES: Pupils equal and round and reactive. No scleral icterus. No injection or drainage. Fundi not examined. ENT: Hearing grossly normal. Nose without bleeding or purulent drainage. Oral mucosae without visible erythema, exudates, masses, or lesions. Poor dentition NECK: Trachea midline. Supple, nontender. CARDIOVASCULAR: Regular rate and rhythm without murmurs, gallops, or rubs. No JVD. Peripheral pulses symmetric. Well healed sternotomy scar RESPIRATORY/CHEST: Symmetric, unlabored respirations. Clear to auscultation. Breath sounds equal bilaterally. No wheezes, rales, or rhonchi. GASTROINTESTINAL: Abdomen soft, non-tender, nondistended. No hepato-splenomegaly , or palpable masses. No guarding. Bowel sounds present. MUSCULOSKELETAL: Extremities without clubbing, cyanosis, or edema. Sp R AKA NEUROLOGICAL: Awake and alert. Motor and sensory grossly within normal limits. Follows commands. Clear speech . Moves all extremities. PSYCHIATRIC: No obvious anxiety/depression. no apparent hallucinations or other psychotic thought process. Assessment & Plan Remarks A/p: MSSA bacteremia ? source repeat blood clx negative - 2 D echo negative, but has severe MR - he needs MVR eventually Acute OR - fur operator to follow - no new findings on coros Leukocytosis up again, but pt is on sterroids will change oxacillin rto cefaolin cont 4 weeks of therapy repeat BC if new fever dw Brittany Roberson MD Jun 28, 2017 17:56
[2017-06-28] MEDS: ceFAZolin 2 GM PREMIX 50 ML IV SCH (18:48)
[2017-06-28] MEDS: NORTRIPTYLINE HCL 25 MG CAP PO SCH (20:36)
[2017-06-28] MEDS: ATORVASTATIN 80 MG TAB PO SCH (20:36)
[2017-06-29] VITALS (19 sets, daily range): BP systolic 104–148; BP diastolic 59–86; PULSE 76–92; RESP 18–20; TEMP 97.6–98.4; O2SAT 95–100
[2017-06-29] MEDS: ceFAZolin 2 GM PREMIX 50 ML IV SCH ×3 (00:32→18:01)
[2017-06-29] MEDS: INSULIN NovoLIN REGULAR SUPPLEMENTAL SCALE SQ SCH ×5 (00:32→18:32)
[2017-06-29] MEDS: methylPREDNISolone SOD SUCC 40 MG/1 ML VIAL IV PUSH SCH ×2 (02:34→15:21)
[2017-06-29] MEDS: ALPRAZolam 0.5 MG TAB PO PRN ×4 (02:34→21:17)
[2017-06-29] MEDS: ACETAMINOPHEN/HYDROcodone 325 MG/10 MG TAB PO PRN ×4 (02:34→21:16)
[2017-06-29] MEDS: CHLORHEXIDINE GLUCONATE 2 % 1 PACK (2 CLOTHS) TOP SCH (02:55)
[2017-06-29] MEDS: LEVOTHYROXINE SODIUM 100 MCG TAB PO SCH (05:44)
--- NOTE | 2017-06-29 08:35 | HHI.CCPN ---
Subjective Remarks/Hospital Course Note for 06/28/17: 62-year-old male with PMH of DM, lifelong smoker presents via EMS for evaluation of respiratory distress. Per EMS the patient's O2 sats was in the 70s on arrival. He received 250 of Solu-Medrol and 2 albuterol treatments en route. Upon arrival to emergency department the CPAP was applied with some improvement. On my evaluation patient is in moderate respiratory distress on facemask nonrebreather. He states his cough is nonproductive. He is unable to provide much other history due to respiratory distress.. 06/21: O2 sats in the high 90s today. Patient continues to demonstrate labored breathing. On my evaluation he is in mild respiratory distress and on a facemask nonrebreather. 06/22 Patient is on BIPAP 04/19 with 40% FIO2. Started on Heparin drip last night for increase trop ( 4.26 from 0.08) on insulin drip 2units/hr. Afebrile. 06/23 Patient was on BIPAP overnight now on partial rebreather, Remains on Heparin drip. 06/24 Patient is lying in bed in mild resp distresss, on partial rebreather. Afebrile. On Heparin drip 06/25 No events overnight. Afebrile. On BIPAP. For possible cath today 06/26 Patient is on 2L oxygen with good sats. s/p cath yesterday showed no change in CAD, 3/4 grafts patent. Off Heparin drip 06/27 No events overnight. Patient is lying in bed in NAD. For YURIY today. Afebrile. 06/28: Breathing more comfortable. YURIY with severe MR, effusions not surprising. He needs to be heavily diuresed. Objective Vital Signs Date Time Temp Pulse Resp B/P (MAP) Pulse Ox O2 Delivery O2 Flow Rate FiO2 06/29/17 08:07 97.8 83 18 140/81 (100) 100 06/29/17 04:00 Nasal Cannula 2.00 06/28/17 07:57 21 Intake and Output 06/29/17 06/29/17 06/30/17 08:00 16:00 00:00 Intake Total 350 ml Balance 350 ml Result Diagram: 06/28/17 0444 06/28/17 1350 Imaging Last Impressions Chest X-Ray 06/24/17 0000 Signed Impressions: Service Date/Time: Saturday, June 24, 2017 08:13 - CONCLUSION: Worsening bilateral infiltrates. Ramon Gale MD Chest CT 06/24/17 0000 Signed Impressions: Service Date/Time: Saturday, June 24, 2017 10:33 - CONCLUSION: 1. Acute, upper lobe predominant infiltrates, most likely infectious or inflammatory. A somewhat atypical distribution of pulmonary edema would also be conceivable. 2. Small to moderate right and moderate left pleural effusions have developed as well and with associated left greater than right basilar atelectasis. Ramon Gale MD Objective Remarks GENERAL: Elderly appearing male in mild respiratory distress SKIN: Warm and dry. HEAD: Normocephalic. EYES: No scleral icterus. No injection or drainage. NECK: Supple, trachea midline. No JVD or lymphadenopathy. CARDIOVASCULAR: Regular rate and rhythm without murmurs, gallops, or rubs. RESPIRATORY: O2 sat 98%, O2 sat dropped slowly to 94% with 4 L nonlabored breathing, Breath sounds equal and clear bilaterally, decreased bases. Some accessory muscle use. GASTROINTESTINAL: Abdomen soft, non-tender, nondistended. BS active. MUSCULOSKELETAL: No cyanosis, or edema. 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 Very hard of hearing. A/P Assessment and Plan Resp Insuff COPD exacerbation NSTEMI Gram-positive cocci bacteremia Metabolic acidosis: Elevated lactic acid Coronary artery disease Hyperglycemia/Uncontrolled Diabetes mellitus - possible DKA Chronic pain and neuropathy h/o GERD Plan: Neuro: Awake and alert, monitor neuro status. [place]/ Xanax prn for anxiety/ pain CV: Monitor HR and BP keep MAP over 65 On Coreg 6.25mg BID, Aspirin, Lipitor. Lisinopril 5mg daily, Norvasc 5mg daily Cards is following-Dr. Richter Echo showed EF 35-40%, severe MR. s/p cath 06/25 showed no change in CAD, 3/4 grafts patent. For possible YURIY tomorrow -> Severe TR, systolic failure Pulm: Continue with oxygen as kimmy keep sat >92% IV steroids: solumedrol 40mg IV q12h Bronchodilators, NIPPV PRN for resp distress, IS Pulm is following- Dr. Slaughter Check CXR US guided thoracentesis couldn't be performed as patient was on Plavix - > stopped. GI/liver: On PO diet : Monitor renal function, electrolytes replacement per protocol. On Lasix 40mg daily ID: Continue abx per ID ( Oxacillin) monitor for signs of infections ( Fever, WBC) BC 06/20 coag negative staph/ staph Aureus , BC 06/22: No growth so far Strep pneumonia and legionella urinary Ag negative 06/20 06/20 sputum: normal resp luz. For YURIY today Endo: DM2, hypothyroid On SSI, Levemir on hold Cont levothyroxine 100 daily heme: Monitor CBC, Pain Management: Cont Lyrica 100mg TID and Nortriptyline HS (home med) Tylenol 650mg q6 PRN pain. [place] when necessary DVT GI prophylaxis - Teds SCDs - Subcutaneous heparin - Pepcid for GI prophylaxis Overall impression: It is unlikely that this man would survive a mitral repair or replacement - his EF will be 15% after his valve is made competent. Ranulfo Yuen MD Jun 29, 2017 08:35
[2017-06-29] MEDS: FAMOTIDINE 20 MG TAB PO SCH ×2 (08:52→21:16)
[2017-06-29] MEDS: PREGABALIN 100 MG CAP PO SCH ×3 (08:52→18:01)
[2017-06-29] MEDS: amLODIPine BESYLATE 5 MG TAB PO SCH (08:52)
[2017-06-29] MEDS: CYANOCOBALAMIN 1,000 MCG TAB PO SCH (08:52)
[2017-06-29] MEDS: DOCUSATE SODIUM 50 MG/SENNA 8.6 MG TAB PO SCH ×2 (08:52→21:16)
[2017-06-29] MEDS: CARVEDILOL 6.25 MG TAB PO SCH ×2 (08:52→21:16)
[2017-06-29] MEDS: LISINOPRIL 5 MG TAB PO SCH (08:52)
[2017-06-29] MEDS: ASPIRIN EC 81 MG TABEC PO SCH (08:52)
[2017-06-29] MEDS: FUROSEMIDE 100 MG/10 ML VIAL IV PUSH SCH ×2 (08:52→21:17)
[2017-06-29] MEDS: HEPARIN SODIUM - SQ 10,000 UNITS/ML VIAL SQ SCH ×2 (09:00→21:18)
[2017-06-29 12:10] LABS: PROTHROMBIN TIME - PATIENT 10.5 SEC (9.8-11.6)
[2017-06-29] MEDS ORDERED: LIDOCAINE HCL 1% 20 ML VIAL ONE (14:10)
--- NOTE | 2017-06-29 14:32 | RADRPT ---
EXAM DATE/TIME: 06/29/2017 14:11 [facility] COMPARISON: CHEST SINGLE AP, June 27, 2017, 8:34. INDICATIONS : Post right thoracentesis. MEDICAL HISTORY : Seizures. Cardiovascular disease Hypertension. GERD; Diabetes, Peripheal neuropathy. SURGICAL HISTORY : CABG. ENCOUNTER: Subsequent ACUITY: 1 week PAIN SCORE: 0/10 LOCATION: Bilateral chest FINDINGS: Status post right thoracentesis. No evidence of pneumothorax. There is a persistent infiltrate in the left lower lung which is stable. The heart and bony structures are stable. CONCLUSION: 1. No pneumothorax. Aubrey Izquierdo MD on June 29, 2017 at 14:29 Board Certified Radiologist. This report was verified electronically.
[2017-06-29 15:02] LABS: TOTAL PROTEIN,PLEURAL FLUID 1.3 GM/DL
--- NOTE | 2017-06-29 15:49 | RADRPT ---
EXAM DATE/TIME: 06/29/2017 12:49 [facility] COMPARISON: No previous studies available for comparison. INDICATIONS : Right pleural effusion. MEDICAL HISTORY : Hypercholesterolemia. PVD. CO. Thyroid disease. [id number]. Hypoglycemia. Seizres. Numbness. CAD. Hyperlipidemia. HTN. GERD. Arthritis. Diabetic. Hydrocele. SURGICAL HISTORY : Tonsillectomy. Angioplasty. Appendectomy. CABG. Lumbar fusion. Esophageal stricture. Explorator y left brachial plexis. Colectomy. Left shoulder surgery. Right knee and ankle surgery. Right AKA . ENCOUNTER: [facility] ACUITY: 4 - 6 days PAIN SCORE: 2/10 LOCATION: Right chest FLUID: Total volume of 650 cc of clear, yellow fluid was removed. Fluid was sent to lab for ordered studies. TECHNIQUE: 1. Ultrasound guidance for thoracentesis. 2. Thoracentesis. The risks, benefits, and alternatives to ultrasound guided thoracentesis were explained to the patien t in lay simple terms, including the risk of bleeding and infection. Written and verbal informed con sent was obtained. Appropriate area for thoracentesis was marked under ultrasound guidance with the patient in the uprig ht position. Overlying skin was prepped and draped in the usual sterile fashion and with local anest hetic, a dermatotomy was made with an 11 blade scalpel. A 6 Spanish thoracentesis catheter was placed in the pleural space and fluid was removed. Catheter was then removed and a sterile dressing applie d. There were no immediate complications. The patient tolerated the procedure well and the left the ultrasound suite in stable condition. Chest radiograph is to be obtained. CONCLUSION: Uncomplicated ultrasound guided thoracentesis. Varun De Paz MD on June 29, 2017 at 15:47 Board Certified Radiologist. This report was verified electronically.
[2017-06-29 15:53] LABS: PLEURAL FLUID LYMPHS 13 %
--- NOTE | 2017-06-29 16:46 | PD.CAR.PN ---
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 Richter who had a recent cardiac cath April 18, 2017 which he has had prior coronary artery bypass grafting x4 with OCONNELL to the LAD, saphenous vein graft to the OM and saphenous vein graft to the PDA, saphenous vein graft to the posterior lateral on August 31, 2006, and the cath on April 18 showed patent OCONNELL to the LAD, patent saphenous vein graft to the RCA. The saphenous vein graft to the PDA showed disease. He was admitted via the emergency department on 06/20 for respiratory distress. O2 sat were in the 70s. He was given an IV Solu-Medrol, DuoNebs. He required C-PAP and BiPap with some improvement. He has been in the ICU since. He underwent echocardiogram which showed EF of 35-40%, left ventricular systolic function moderate to severely reduced. The left atrium was however, moderately to severely dilated. The mitral valve showed systolic flow reversal with severe mitral regurgitation. No aortic stenosis or regurgitation, some mild tricuspid regurgitation, this was different from the echocardiogram that was done in April which the patient at that time had a normal systolic function with EF of 65% mild MR, mild tricuspid regurgitation. We were consulted secondary to the severe mitral regurgitation. The patient has also been worked up completely also with infectious disease. The patient was found to have MSSA bacteremia and has been treated with oxacillin and Zithromax. The patient has had a repeat set of blood cultures on 06/22 with negative cultures, however the cause of the initial bacteremia is still unknown. The patient underwent YURIY which showed no vegetations on valve , EF 35 % 06/28 await clearance from ID for surgery, would recommend pt recover completely from CHF and infection , will eval sts score , supportive care for now 06/29 pt still SOB with any activity / on norco and xanax for pain and anxiety remains on antibiotics, per ID will require for 4 weeks pt has very high risk scoring for mortality recommend maximizing medical therapy , will see back in office in 4 weeks for re -evaluation Objective: GENERAL: awake, alert SKIN: Warm and dry.pale HEAD: Normocephalic. EYES: No scleral icterus. No injection or drainage. NECK: Supple, trachea midline. No JVD or lymphadenopathy. CARDIOVASCULAR: Regular rate and rhythm without murmurs, gallops, or rubs. RESPIRATORY: bibasilar crackles , very diminished throughout Breath sounds equal bilaterally. No accessory muscle use. GASTROINTESTINAL: Abdomen soft, non-tender, nondistended. MUSCULOSKELETAL: No cyanosis, or edema. BACK: Nontender without obvious deformity. No CVA tenderness. ext + clubbing, no cyanosis Vital Signs Date Time Temp Pulse Resp B/P (MAP) Pulse Ox O2 Delivery O2 Flow Rate FiO2 06/29/17 16:36 98.4 81 20 144/71 (95) 100 06/29/17 12:19 97.6 76 20 104/59 (74) 95 06/29/17 11:06 76 06/29/17 11:05 Nasal Cannula 2.00 06/29/17 10:33 20 06/29/17 08:07 97.8 83 18 140/81 (100) 100 06/29/17 05:53 86 06/29/17 05:00 86 06/29/17 04:00 Nasal Cannula 2.00 06/29/17 04:00 79 06/29/17 04:00 98.3 91 20 148/86 (106) 96 06/29/17 03:00 84 06/29/17 02:00 92 06/29/17 01:00 92 06/29/17 00:00 Nasal Cannula 1.00 06/29/17 00:00 98.2 92 20 130/73 (92) 95 06/29/17 00:00 89 06/28/17 23:00 86 06/28/17 22:00 84 06/28/17 21:00 76 06/28/17 20:33 97.7 82 20 138/71 (93) 97 06/28/17 20:33 Nasal Cannula 1.00 06/28/17 20:00 80 06/28/17 19:00 98 06/28/17 18:48 22 06/28/17 18:00 90 06/28/17 17:00 74 Labs: Laboratory Tests Test 06/29/17 11:45 06/29/17 13:14 Prothrombin Time 10.5 SEC (9.8-11.6) Prothromb Time International Ratio 1.0 RATIO Pleural Fluid pH 8.0 Pleural Fluid WBC 20 /MM3 (0-10) Pleural Fluid RBC 0 /MM3 (0-0) Pleural Fluid Neutrophils 50 % Pleural Fluid Lymphocytes 13 % Pleural Fluid Monocytes 25 % Pleural Fluid Histiocytes 13 % Pleural Fluid Comment Pleural Fluid Total Protein 1.3 GM/DL Pleural Fluid LDH 82 U/L Pleural Fluid Glucose 306 MG/DL Result Diagram: 06/28/17 0444 06/28/17 1350 Telemetry: ST with LBBB (1) Mitral regurgitation Plan: recommend clearance by infection disease, maximize CHF treatment re-eval as out pt f/u appointment in [address] Oviedo (2) NSTEMI (non-ST elevated myocardial infarction) (3) Hx of CABG (4) Anemia (5) DM (6) PVD (peripheral vascular disease) (7) Shortness of breath (8) Tobacco abuse Problem Qualifiers (1) Mitral regurgitation: Qualified Codes: I34.0 - Nonrheumatic mitral (valve) insufficiency China White Jun 29, 2017 16:46
--- NOTE | 2017-06-29 17:14 | PD.CARD.PN ---
Subjective Subjective Remarks Patient was seen earlier today Did well overnight No complaints Doing much better, with some episodes of SOB of O2 with activity Objective Medications Current Medications Medications (Trade) Dose Ordered Sig/Nuzhat Route Start Time Stop Time Status Last Admin (Norvasc) 5 mg DAILY PO 06/21/17 09:00 06/29/17 08:52 (Ecotrin Ec) 81 mg DAILY PO 06/21/17 09:00 06/29/17 08:52 (Lipitor) 80 mg HS PO 06/20/17 21:00 06/28/17 20:36 (Coreg) 6.25 mg BID PO 06/20/17 21:00 06/29/17 08:52 (Plavix) 75 mg DAILY PO 06/21/17 09:00 Future Hold 06/24/17 08:55 (Synthroid) 100 mcg DAILY@06 PO 06/21/17 06:00 06/29/17 05:44 (Pamelor) 75 mg HS PO 06/20/17 21:00 06/28/17 20:36 (Lyrica) 100 mg TID PO 06/21/17 09:00 06/29/17 16:22 (Vitamin B12) 1,000 mcg DAILY PO 06/21/17 09:00 06/29/17 08:52 (NS Flush) 2 ml UNSCH PRN IV FLUSH 06/20/17 19:00 (NS Flush) 2 ml BID IV FLUSH 06/20/17 21:00 06/28/17 20:37 (Tylenol) 650 mg Q6H PRN PO 06/20/17 19:00 06/23/17 17:51 (Zofran Inj) 4 mg Q6H PRN IV PUSH 06/20/17 19:00 (Duoneb Neb) 1 ampule Q2HR NEB PRN INH 06/20/17 19:00 06/28/17 16:57 Miscellaneous Information 1 Q361D XX 06/20/17 19:00 (Chlorhexidine 2% Cloth) Taper DAILY@04 TOP 06/21/17 04:00 06/17/18 03:59 06/27/17 01:00 (Chlorhexidine 2% Cloth) 3 pack UNSCH PRN TOP 06/20/17 19:00 (Afua-Colace) 1 tab BID PO 06/20/17 21:00 06/29/17 08:52 (Milk Of Magnesia Liq) 30 ml Q12H PRN PO 06/20/17 19:00 (Senokot) 17.2 mg Q12H PRN PO 06/20/17 19:00 (Dulcolax Supp) 10 mg DAILY PRN RECTAL 06/20/17 19:00 (Lactulose Liq) 30 ml DAILY PRN PO 06/20/17 19:00 (Avant 10-325 Mg) 1 tab Q6H PRN PO 06/21/17 12:15 06/29/17 15:21 (Xanax) 0.5 mg Q6H PRN PO 06/21/17 12:15 06/29/17 15:21 (SoluMEDROL INJ) 40 mg Q12H IV PUSH 06/22/17 15:00 06/29/17 15:21 (D50w (Vial) Inj) 50 ml UNSCH PRN IV PUSH 06/22/17 08:30 (Glucagon Inj) 1 mg UNSCH PRN OTHER 06/22/17 08:30 (NovoLIN R SUPPLEMENTAL SCALE) 1 Q4H SQ 06/22/17 09:00 06/29/17 16:23 (Prinivil) 5 mg DAILY PO 06/24/17 09:00 06/29/17 08:52 (Heparin Inj) 5,000 units Q12HR SQ 06/26/17 16:00 06/28/17 20:36 Potassium Chloride 100 ml @ 50 mls/hr Q2H PRN IV 06/26/17 08:30 Potassium Chloride 100 ml @ 50 mls/hr Q2H PRN IV 06/26/17 08:30 (K-Lyte Cl Eff) 50 meq UNSCH PRN PO 06/26/17 08:30 Potassium Chloride 100 ml @ 25 mls/hr UNSCH PRN IV 06/26/17 08:30 Potassium Chloride 100 ml @ 50 mls/hr Q2H PRN IV 06/26/17 08:30 Magnesium Sulfate 4 gm/Sodium Chloride 100 ml @ 50 mls/hr UNSCH PRN IV 06/26/17 08:30 (Mag-Ox) 800 mg UNSCH PRN PO 06/26/17 08:30 Magnesium Sulfate 2 gm/Sodium Chloride 100 ml @ 50 mls/hr UNSCH PRN IV 06/26/17 08:30 (K-Phos) 2,000 mg Q4H PRN PO 06/26/17 08:30 Sodium Phosphate 30 mmol/Sodium Chloride 250 ml @ 42 mls/hr UNSCH PRN IV 06/26/17 08:30 (K-Phos) 2,000 mg UNSCH PRN PO/TUBE 06/26/17 08:30 Potassium Phosphate 30 mmol/ Sodium Chloride 260 ml @ 42 mls/hr UNSCH PRN IV 06/26/17 08:30 (Pepcid) 20 mg BID PO 06/26/17 12:00 06/29/17 08:52 Cefazolin Sodium/ Dextrose 50 ml @ 150 mls/hr Q8H IV 06/28/17 18:00 06/29/17 10:38 (Lasix Inj) 60 mg Q12H IV PUSH 06/29/17 09:00 06/29/17 08:52 Vital Signs / I&O Vital Signs Date Time Temp Pulse Resp B/P (MAP) Pulse Ox O2 Delivery O2 Flow Rate FiO2 06/29/17 16:36 98.4 81 20 144/71 (95) 100 06/29/17 12:19 97.6 76 20 104/59 (74) 95 06/29/17 11:06 76 06/29/17 11:05 Nasal Cannula 2.00 06/29/17 10:33 20 06/29/17 08:07 97.8 83 18 140/81 (100) 100 06/29/17 05:53 86 06/29/17 05:00 86 06/29/17 04:00 Nasal Cannula 2.00 06/29/17 04:00 79 06/29/17 04:00 98.3 91 20 148/86 (106) 96 06/29/17 03:00 84 06/29/17 02:00 92 06/29/17 01:00 92 06/29/17 00:00 Nasal Cannula 1.00 06/29/17 00:00 98.2 92 20 130/73 (92) 95 06/29/17 00:00 89 06/28/17 23:00 86 06/28/17 22:00 84 06/28/17 21:00 76 06/28/17 20:33 97.7 82 20 138/71 (93) 97 06/28/17 20:33 Nasal Cannula 1.00 06/28/17 20:00 80 06/28/17 19:00 98 06/28/17 18:48 22 06/28/17 18:00 90 I/O 06/28/17 06/28/17 06/28/17 06/29/17 06/29/17 06/29/17 07:00 15:00 23:00 07:00 15:00 23:00 Intake Total 210 ml 680 ml 250 ml 350 ml Output Total 900 ml 1100 ml 2400 ml Balance -690 ml 680 ml -850 ml 350 ml -2400 ml Intake Oral 480 ml 300 ml IV Total 210 ml 200 ml 250 ml 50 ml Output Urine Total 900 ml 1100 ml 2400 ml # Voids 2 2 # Bowel Movements 0 0 Physical Exam GENERAL: NAD, AAOx3 SKIN: Warm and dry. HEAD: Atraumatic. Normocephalic. EYES: Pupils equal and round. No scleral icterus. No injection or drainage. ENT: No nasal bleeding or discharge. Mucous membranes pink and moist. NECK: Trachea midline. No JVD. CARDIOVASCULAR: Regular rate and rhythm. 2/6 holosystolic murmur noted at the apex RESPIRATORY: No accessory muscle use. Decreased breath sounds bilaterally GASTROINTESTINAL: Abdomen soft, non-tender, nondistended. Hepatic and splenic margins not palpable. MUSCULOSKELETAL: Extremities without clubbing, cyanosis, or edema. RLE with AKA. Left radial no hematoma, neurovascularly intact distally NEUROLOGICAL: Awake and alert. No obvious cranial nerve deficits. Motor grossly within normal limits. Five out of 5 muscle strength in the arms and legs. Normal speech. PSYCHIATRIC: Appropriate mood and affect; insight and judgment normal. Laboratory Laboratory Tests Test 06/29/17 11:45 06/29/17 13:14 Prothrombin Time 10.5 SEC Prothromb Time International Ratio 1.0 RATIO Pleural Fluid pH 8.0 Pleural Fluid WBC 20 /MM3 Pleural Fluid RBC 0 /MM3 Pleural Fluid Neutrophils 50 % Pleural Fluid Lymphocytes 13 % Pleural Fluid Monocytes 25 % Pleural Fluid Histiocytes 13 % Pleural Fluid Comment Pleural Fluid Total Protein 1.3 GM/DL Pleural Fluid LDH 82 U/L Pleural Fluid Glucose 306 MG/DL Imaging Last 24 hours Impressions Thoracentesis Ultrasound 06/29/17 0000 Signed Impressions: Service Date/Time: Thursday, June 29, 2017 12:49 - CONCLUSION: Uncomplicated ultrasound guided thoracentesis. Varun De Paz MD Chest X-Ray 06/29/17 0000 Signed Impressions: Service Date/Time: Thursday, June 29, 2017 14:11 - CONCLUSION: 1. No pneumothorax. Aubrey Izquierdo MD Assessment and Plan Problem List: (1) Mitral regurgitation ICD Codes: I34.0 - Nonrheumatic mitral (valve) insufficiency (2) NSTEMI (non-ST elevated myocardial infarction) ICD Codes: I21.4 - Non-ST elevation (NSTEMI) myocardial infarction Status: Acute (3) Hx of CABG ICD Codes: Z95.1 - Presence of aortocoronary bypass graft (4) Anemia ICD Codes: D64.9 - Anemia, unspecified (5) DM (6) PVD (peripheral vascular disease) ICD Codes: I73.9 - Peripheral vascular disease, unspecified (7) Shortness of breath ICD Codes: R06.02 - Shortness of breath Status: Acute (8) Tobacco abuse ICD Codes: Z72.0 - Tobacco abuse Status: Chronic Assessment and Plan 1) EF 35-40% with severe MR Huge change compared to previous Diagnostic cardiac catheterization showing no change in CAD, 3/4 grafts patent as before YURIY showing severe MR, appears to have tethering of the posterior leaflet Discussed with CT surgery and ID 2) SOB due to CHF from MR 3) Attempt to diuresis as possible 4) Bacteremia 4/4 bottles positive (possible contaminant) ID following Further cultures so far negative YURIY negative for vegetation 5) Pleural effusion Thoracentesis today Would restart Plavix when able to since he was an NSTEMI 6) If questions or concerns over the weekend, my partner will be available as needed. Otherwise will plan to see Sunday. Problem Qualifiers (1) Mitral regurgitation: Qualified Codes: I34.0 - Nonrheumatic mitral (valve) insufficiency Anupam Richter DO Jun 29, 2017 17:14
[2017-06-29] MEDS: SODIUM CHLORIDE 0.9% FLUSH 10 ML FLUSH IV FLUSH SCH ×2 (18:01→21:00)
[2017-06-29] MEDS: ATORVASTATIN 80 MG TAB PO SCH (21:16)
[2017-06-29] MEDS: NORTRIPTYLINE HCL 25 MG CAP PO SCH (21:16)
[2017-06-30] VITALS (13 sets, daily range): BP systolic 104–129; BP diastolic 68–77; PULSE 18–90; RESP 18–20; TEMP 97.6–98.4; O2SAT 97–100
[2017-06-30] MEDS: INSULIN NovoLIN REGULAR SUPPLEMENTAL SCALE SQ SCH ×6 (01:00→20:57)
[2017-06-30] MEDS: ceFAZolin 2 GM PREMIX 50 ML IV SCH ×3 (02:00→16:51)
[2017-06-30] MEDS: CHLORHEXIDINE GLUCONATE 2 % 1 PACK (2 CLOTHS) TOP SCH (04:00)
[2017-06-30] MEDS: methylPREDNISolone SOD SUCC 40 MG/1 ML VIAL IV PUSH SCH (04:54)
[2017-06-30] MEDS: ALPRAZolam 0.5 MG TAB PO PRN ×3 (04:54→16:51)
[2017-06-30] MEDS: ACETAMINOPHEN/HYDROcodone 325 MG/10 MG TAB PO PRN ×3 (04:54→16:52)
--- NOTE | 2017-06-30 05:35 | RADRPT ---
EXAM DATE/TIME: 06/30/2017 04:16 [facility] COMPARISON: CHEST SINGLE AP, June 27, 2017, 8:34. INDICATIONS : Hypoxemia. MEDICAL HISTORY : Seizures. Cardiovascular disease Hypertension. GERD; Diabetes, Peripheal neuropathy. SURGICAL HISTORY : CABG. ENCOUNTER: Subsequent ACUITY: 1 week PAIN SCORE: 0/10 LOCATION: Bilateral chest FINDINGS: Single AP view of the chest. Median sternotomy wires are again seen. Left lower lobe consolidation ve rsus atelectasis similar to prior study. Interval resolution of right pleural effusion. Persistent sm all left pleural effusion. No evidence of pneumothorax. Cardiomediastinal silhouette unchanged. CONCLUSION: Persistent left lower lobe consolidation versus atelectasis and small left pleural effusion. Ki Vásquez MD on June 30, 2017 at 5:32 Board Certified Radiologist. This report was verified electronically.
[2017-06-30] MEDS: LEVOTHYROXINE SODIUM 100 MCG TAB PO SCH (05:56)
[2017-06-30 07:49] LABS: BICARBONATE 29.8 MEQ/L (21.0-32.0); POTASSIUM 4.4 MEQ/L (3.5-5.1)
[2017-06-30] MEDS: amLODIPine BESYLATE 5 MG TAB PO SCH (09:41)
[2017-06-30] MEDS: CYANOCOBALAMIN 1,000 MCG TAB PO SCH (09:41)
[2017-06-30] MEDS: LISINOPRIL 5 MG TAB PO SCH (09:41)
[2017-06-30] MEDS: FAMOTIDINE 20 MG TAB PO SCH ×2 (09:41→20:56)
[2017-06-30] MEDS: CARVEDILOL 6.25 MG TAB PO SCH ×2 (09:42→20:56)
[2017-06-30] MEDS: ASPIRIN EC 81 MG TABEC PO SCH (09:42)
[2017-06-30] MEDS: HEPARIN SODIUM - SQ 10,000 UNITS/ML VIAL SQ SCH ×2 (09:42→20:55)
[2017-06-30] MEDS: FUROSEMIDE 100 MG/10 ML VIAL IV PUSH SCH (09:42)
[2017-06-30] MEDS: DOCUSATE SODIUM 50 MG/SENNA 8.6 MG TAB PO SCH ×2 (09:42→20:56)
[2017-06-30] MEDS: PREGABALIN 100 MG CAP PO SCH ×3 (09:42→16:52)
[2017-06-30] MEDS: SODIUM CHLORIDE 0.9% FLUSH 10 ML FLUSH IV FLUSH SCH ×2 (09:43→20:56)
--- NOTE | 2017-06-30 10:44 | HHI.PR ---
Subjective Remarks Patient reports he still has some shortness of breath, mainly with activities. But overall he is feeling better. He had many questions regarding his conditions which I answered. Blood glucose markedly elevated this morning. Objective Vitals Vital Signs Date Time Temp Pulse Resp B/P (MAP) Pulse Ox O2 Delivery O2 Flow Rate FiO2 06/30/17 06:00 81 06/30/17 05:15 97.6 81 20 129/77 (94) 97 06/30/17 05:15 Room Air 06/30/17 05:15 79 06/30/17 04:00 98.2 80 18 120/73 (89) 100 06/30/17 04:00 80 06/30/17 02:00 82 06/30/17 00:00 78 06/30/17 00:00 98.3 78 18 121/72 (88) 100 06/29/17 22:00 80 06/29/17 20:00 99 Nasal Cannula 2.00 06/29/17 20:00 97.7 80 18 126/71 (89) 99 06/29/17 20:00 80 06/29/17 18:00 80 06/29/17 17:19 20 06/29/17 17:19 20 06/29/17 16:36 98.4 81 20 144/71 (95) 100 06/29/17 15:00 85 06/29/17 13:00 79 06/29/17 12:19 97.6 76 20 104/59 (74) 95 06/29/17 11:06 76 06/29/17 11:05 Nasal Cannula 2.00 06/29/17 11:00 78 I/O 06/29/17 06/29/17 06/29/17 06/30/17 06/30/17 06/30/17 07:00 15:00 23:00 07:00 15:00 23:00 Intake Total 350 ml 640 ml Output Total 2400 ml 1100 ml Balance 350 ml -2400 ml -460 ml Intake Oral 300 ml 640 ml IV Total 50 ml 0 ml Output Urine Total 2400 ml 1100 ml # Voids 2 # Bowel Movements 0 0 Result Diagram: 06/28/17 0444 06/30/17 0635 Imaging Last Impressions Chest X-Ray 06/30/17 0400 Signed Impressions: Service Date/Time: Friday, June 30, 2017 04:16 - CONCLUSION: Persistent left lower lobe consolidation versus atelectasis and small left pleural effusion. Ki Vásquez MD Thoracentesis Ultrasound 06/29/17 0000 Signed Impressions: Service Date/Time: Thursday, June 29, 2017 12:49 - CONCLUSION: Uncomplicated ultrasound guided thoracentesis. Varun De Paz MD Carotid Artery Ultrasound 06/27/17 0000 Signed Impressions: Service Date/Time: Tuesday, June 27, 2017 17:16 - CONCLUSION: 1. Velocities are within normal range. However, elevated PSV ratio on the right could indicate a moderate stenosis. Channing Camara MD Chest CT 06/24/17 0000 Signed Impressions: Service Date/Time: Saturday, June 24, 2017 10:33 - CONCLUSION: 1. Acute, upper lobe predominant infiltrates, most likely infectious or inflammatory. A somewhat atypical distribution of pulmonary edema would also be conceivable. 2. Small to moderate right and moderate left pleural effusions have developed as well and with associated left greater than right basilar atelectasis. Ramon Gale MD Objective Remarks GENERAL: Patient appear older than stated age in no apparent distress. CARDIOVASCULAR: Normal rate and regular rhythm. 2/6 KARIE best heard at the apex. RESPIRATORY: Good respiratory efforts. Breath sounds equal and clear to auscultation bilaterally. GASTROINTESTINAL: Abdomen soft, non-tender, non-distended. Normal active bowel sounds MUSCULOSKELETAL: Status post right AKA. No lower extremity edema on the left. NEURO: Alert & Oriented x4 to person, place, time, situation. Moves all ext x4 PSYCH: Appropriate mood and affect. A/P Assessment and Plan 62-year-old male with respiratory failure secondary to COPD exacerbation and CHF /mitral valve regurgitation. Patient also has MSSA bacteremia. YURIY negative for vegetation. Respiratory failure secondary to CHF/MR/pleural effusion - EF 35-40% with severe MR. - Heart catheterization showing stable CAD. 3 out of 4 grafts patent. - CT surgery consulted. Recommendation to optimize medical management and they will reassess in about 4 weeks. Patient currently has a high risk for mortality if he has surgery. - Continue diuretics. Decrease Lasix to 40 mg IV twice a day. Continue lisinopril and Coreg. - Patient underwent thoracentesis on 06/29/17 with improvement of symptoms. NSTEMI/CAD: - Heart catheterization shows stable coronary artery disease. Recommends continuing medical management. - Resume Plavix since no procedures are planned. - Continue Coreg. COPD exacerbation: - Start tapering steroids. Transition to oral prednisone. - Continue breathing treatments and supplemental oxygen as needed. MSSA bacteremia: Source unclear. - Infectious disease following. Plan for 4 weeks of IV antibiotics. Type 2 diabetes/hyperglycemia: - Uncontrolled. Secondary to steroids. - Continue sliding scale insulin with Accu-Cheks Hypothyroid Cont levothyroxine 100 daily Pain Management: Cont Lyrica 100mg TID and Nortriptyline HS (home med) Tylenol 650mg q6 PRN pain. [place] when necessary DVT GI prophylaxis - Teds SCDs - Subcutaneous heparin - Pepcid for GI prophylaxis Discharge Planning Will need 4 weeks of IV antibiotics per infectious disease. Not sure if he can get IV antibiotics at home. Amish Gastelum MD Jun 30, 2017 10:44
--- NOTE | 2017-06-30 10:45 | EKG ---
Date Performed: 06/29/2017 Time Performed: 22:26:00 PTAGE: 62 years EKG: Sinus rhythm . Possible left atrial abnormality Incomplete left bundle branch block Septal T wave changes are nons pecific Abnormal ECG PREVIOUS TRACING : 06/21/2017 09.21 Compared to previous tracing, QRS duration has decreased, i nferior ST elevation is no longer evident. DOCTOR: Shen Walker Interpretating Date/Time 06/30/2017 10:42:58
[2017-06-30 15:49] LABS: AUTOMATED NEUTROPHIL # 9.3 TH/MM3 (1.8-7.7); BASOPHIL % 0.1 % (0.0-2.0); EOSINOPHIL % 0.1 % (0.0-4.0); HEMATOCRIT 32.5 % (39.0-51.0); HEMO FLAGS DIFF FINAL; LYMPH % 13.3 % (9.0-44.0); LYMPHOCYTE # 1.5 TH/MM3 (1.0-4.8); MEAN CELL VOLUME 82.4 FL (80.0-100.0); MEAN CORPUSCULAR HEMOGLOBIN 26.6 PG (27.0-34.0); MEAN CORPUSCULAR HGB CONC 32.3 % (32.0-36.0); MONO % 4.5 % (0.0-8.0); PLATELET COUNT 251 TH/MM3 (150-450); RED BLOOD COUNT 3.95 MIL/MM3 (4.50-5.90); RED CELL DISTRIBUTION WIDTH 16.7 % (11.6-17.2); WHITE BLOOD COUNT 11.4 TH/MM3 (4.0-11.0)
[2017-06-30] MEDS: FUROSEMIDE 40 MG/4 ML VIAL IV PUSH SCH (20:55)
[2017-06-30] MEDS: ATORVASTATIN 80 MG TAB PO SCH (20:56)
[2017-06-30] MEDS: NORTRIPTYLINE HCL 25 MG CAP PO SCH (20:56)
[2017-06-30] MEDS: predniSONE 20 MG TAB PO SCH (20:56)
[2017-07-01] VITALS (20 sets, daily range): BP systolic 103–122; BP diastolic 54–76; PULSE 73–97; RESP 16–22; TEMP 98.2–98.7; O2SAT 95–97
[2017-07-01] MEDS: INSULIN NovoLIN REGULAR SUPPLEMENTAL SCALE SQ SCH ×2 (00:13→05:24)
[2017-07-01] MEDS: ACETAMINOPHEN/HYDROcodone 325 MG/10 MG TAB PO PRN ×4 (00:14→20:44)
[2017-07-01] MEDS: ALPRAZolam 0.5 MG TAB PO PRN ×3 (00:20→21:00)
[2017-07-01] MEDS: ceFAZolin 2 GM PREMIX 50 ML IV SCH ×3 (02:36→17:16)
[2017-07-01] MEDS: CHLORHEXIDINE GLUCONATE 2 % 1 PACK (2 CLOTHS) TOP SCH (03:25)
[2017-07-01] MEDS: LEVOTHYROXINE SODIUM 100 MCG TAB PO SCH (05:20)
[2017-07-01 06:09] LABS: HEMATOCRIT 29.9 % (39.0-51.0); MEAN CELL VOLUME 82.3 FL (80.0-100.0); MEAN CORPUSCULAR HEMOGLOBIN 27.1 PG (27.0-34.0); MEAN CORPUSCULAR HGB CONC 32.9 % (32.0-36.0); PLATELET COUNT 220 TH/MM3 (150-450); RED BLOOD COUNT 3.63 MIL/MM3 (4.50-5.90); RED CELL DISTRIBUTION WIDTH 16.9 % (11.6-17.2); REVIEW FLAG FINAL; WHITE BLOOD COUNT 9.6 TH/MM3 (4.0-11.0)
[2017-07-01 06:35] LABS: BICARBONATE 31.9 MEQ/L (21.0-32.0); POTASSIUM 4.3 MEQ/L (3.5-5.1)
[2017-07-01] MEDS: FAMOTIDINE 20 MG TAB PO SCH ×2 (08:21→20:44)
[2017-07-01] MEDS: amLODIPine BESYLATE 5 MG TAB PO SCH (08:21)
[2017-07-01] MEDS: PREGABALIN 100 MG CAP PO SCH ×3 (08:22→17:16)
[2017-07-01] MEDS: DOCUSATE SODIUM 50 MG/SENNA 8.6 MG TAB PO SCH ×2 (08:22→20:46)
[2017-07-01] MEDS: CYANOCOBALAMIN 1,000 MCG TAB PO SCH (08:22)
[2017-07-01] MEDS: predniSONE 20 MG TAB PO SCH ×2 (08:22→21:01)
[2017-07-01] MEDS: ASPIRIN EC 81 MG TABEC PO SCH (08:22)
[2017-07-01] MEDS: CLOPIDOGREL 75 MG TAB PO SCH (08:23)
[2017-07-01] MEDS: LISINOPRIL 5 MG TAB PO SCH (08:23)
[2017-07-01] MEDS: CARVEDILOL 6.25 MG TAB PO SCH ×2 (08:23→20:44)
[2017-07-01] MEDS: FUROSEMIDE 40 MG/4 ML VIAL IV PUSH SCH (08:27)
[2017-07-01] MEDS: HEPARIN SODIUM - SQ 10,000 UNITS/ML VIAL SQ SCH ×2 (08:28→21:00)
[2017-07-01] MEDS ORDERED: GLUCAGON 1 MG/ML VIAL OTHER PRN (10:15)
[2017-07-01] MEDS ORDERED: DEXTROSE 50% IN WATER 50 ML VIAL(D50) IV PUSH PRN (10:15)
[2017-07-01] MEDS: INSULIN DETEMIR 100 UNITS/ML VIAL SQ SCH ×2 (11:28→20:47)
[2017-07-01] MEDS: INSULIN ASPART SUPPLEMENTAL SCALE SQ SCH ×3 (11:36→20:47)
[2017-07-01] MEDS: SODIUM CHLORIDE 0.9% FLUSH 10 ML FLUSH IV FLUSH SCH ×2 (11:37→21:00)
--- NOTE | 2017-07-01 15:09 | HHI.PR ---
Subjective Remarks Patient denies shortness of breath. He is on room air. He does complain of pain in his back shoulder which is typical of his chronic pain. Objective Vitals Vital Signs Date Time Temp Pulse Resp B/P (MAP) Pulse Ox O2 Delivery O2 Flow Rate FiO2 07/01/17 12:00 98.2 96 22 118/69 (85) 96 07/01/17 08:00 98.4 97 20 103/55 (71) 97 07/01/17 06:00 83 07/01/17 05:00 88 07/01/17 04:00 75 07/01/17 03:40 98.7 76 20 108/68 (81) 95 07/01/17 03:00 74 07/01/17 02:00 76 07/01/17 01:10 16 07/01/17 01:00 79 07/01/17 00:15 98.5 73 20 110/67 (81) 96 07/01/17 00:00 75 06/30/17 23:00 75 06/30/17 21:00 86 06/30/17 20:00 82 06/30/17 20:00 Room Air 06/30/17 19:00 84 06/30/17 19:00 98.4 90 20 104/68 (80) 97 06/30/17 16:00 98.0 83 20 119/70 (86) 98 06/30/17 16:00 83 I/O 06/30/17 06/30/17 06/30/17 07/01/17 07/01/17 07/01/17 07:00 15:00 23:00 07:00 15:00 23:00 Intake Total 640 ml 50 ml 650 ml 680 ml Output Total 1100 ml 1200 ml 0 ml Balance -460 ml 50 ml -550 ml 680 ml Intake Oral 640 ml 600 ml 680 ml IV Total 0 ml 50 ml 50 ml Output Urine Total 1100 ml 1200 ml Emesis 0 ml # Voids 5 # Bowel Movements 0 0 Result Diagram: 07/01/1741207/01/17412 Objective Remarks GENERAL: Well-nourished, well-developed lean male patient with.. SKIN: Warm and dry. HEAD: Normocephalic. EYES: No scleral icterus. No injection or drainage. NECK: Supple, trachea midline. No JVD or lymphadenopathy. CARDIOVASCULAR: Regular rate and rhythm without murmurs, gallops, or rubs. RESPIRATORY: Breath sounds equal bilaterally. No accessory muscle use. GASTROINTESTINAL: Abdomen soft, non-tender, nondistended. EXTREMITIES: No cyanosis, or edema. Right lower extremity status post remote AKA. NEUROLOGICAL: Awake, alert, and oriented x 3. Non-focal. A/P Problem List: (1) DM (diabetes mellitus) ICD Code: E11.9 - Type 2 diabetes mellitus without complications Status: Chronic (2) Type 2 diabetes mellitus ICD Code: E11.9 - Type 2 diabetes mellitus Status: Chronic (3) Mitral regurgitation ICD Code: I34.0 - Nonrheumatic mitral (valve) insufficiency (4) PVD (peripheral vascular disease) ICD Code: I73.9 - Peripheral vascular disease, unspecified (5) Systolic CHF, acute ICD Code: I50.21 - Acute systolic (congestive) heart failure (6) Bacteremia due to Staphylococcus aureus ICD Code: R78.81 - Bacteremia (7) Hx of CABG ICD Code: Z95.1 - Presence of aortocoronary bypass graft (8) Status post above knee amputation of right lower extremity ICD Code: Z89.611 - Acquired absence of right leg above knee Status: Acute (9) Peripheral vascular disease ICD Code: I73.9 - Peripheral vascular disease Status: Chronic (10) Hyponatremia ICD Code: E87.1 - Hyponatremia Status: Acute (11) CAD (coronary artery disease) ICD Code: I25.10 - Atherosclerotic heart disease of [place] coronary artery without angina pectoris Status: Chronic Assessment and Plan 62-year-old male with respiratory failure secondary to COPD exacerbation and CHF /mitral valve regurgitation. Patient also has MSSA bacteremia. YURIY negative for vegetation. Respiratory failure secondary to CHF/MR/pleural effusion - EF 35-40% with severe MR. - Heart catheterization showing stable CAD. 3 out of 4 grafts patent. - CT surgery consulted. Recommendation to optimize medical management and they will reassess in about 4 weeks. Patient currently has a high risk for mortality if he has surgery. Infection needs to be under control first. - Continue diuretics. Will change to by mouth Lasix. Continue lisinopril and Coreg. - Patient underwent thoracentesis on 06/29/17 with removal of 650 miles of fluid improvement of symptoms. NSTEMI/CAD: - Heart catheterization shows stable coronary artery disease. Recommends continuing medical management. - Resume Plavix since no procedures are planned. - Continue Coreg. COPD exacerbation: improved, on RA -Taper prednisone and DC on 07/03 - Continue breathing treatments and supplemental oxygen as needed. MSSA bacteremia: Source unclear. echo neg for vegetations. - Infectious disease following. Plan for 4 weeks of IV antibiotics. Cefazolin. Type 2 diabetes/hyperglycemia: - Uncontrolled. Secondary to steroids. -Start Levemir 5 units subcutaneous every 12 hours - Continue sliding scale insulin with Accu-Cheks Hypothyroid Cont levothyroxine 100 daily Pain Management: Cont Lyrica 100mg TID and Nortriptyline HS (home med) Tylenol 650mg q6 PRN pain. [place] when necessary PVD s/p right AKA - has prosthesis. cont med management. -hx hypothyroidism - check TSH DVT GI prophylaxis - Teds SCDs - Subcutaneous heparin - Pepcid for GI prophylaxis Discharge Planning Would need outpatient IV antibiotics arranged prior to discharge. If this is arranged he will probably be medically optimized for discharge in the next 2 days. Problem Qualifiers (1) Mitral regurgitation: Qualified Codes: I34.0 - Nonrheumatic mitral (valve) insufficiency Patricia Salazar MD Jul 01, 2017 15:09
[2017-07-01] MEDS: FUROSEMIDE 40 MG TAB PO SCH (17:16)
[2017-07-01] MEDS: ATORVASTATIN 80 MG TAB PO SCH (20:44)
[2017-07-01] MEDS: NORTRIPTYLINE HCL 25 MG CAP PO SCH (20:45)
[2017-07-02] VITALS (9 sets, daily range): BP systolic 110–132; BP diastolic 67–80; PULSE 74–92; RESP 16–18; TEMP 97.3–98.4; O2SAT 96–100
[2017-07-02] MEDS: ceFAZolin 2 GM PREMIX 50 ML IV SCH ×3 (02:30→18:00)
[2017-07-02] MEDS: ACETAMINOPHEN/HYDROcodone 325 MG/10 MG TAB PO PRN ×4 (03:15→21:32)
[2017-07-02] MEDS: CHLORHEXIDINE GLUCONATE 2 % 1 PACK (2 CLOTHS) TOP SCH (03:21)
[2017-07-02] MEDS: ALPRAZolam 0.5 MG TAB PO PRN ×4 (03:55→21:31)
[2017-07-02] MEDS: LEVOTHYROXINE SODIUM 100 MCG TAB PO SCH (06:25)
[2017-07-02 08:06] LABS: AUTOMATED NEUTROPHIL # 10.9 TH/MM3 (1.8-7.7); BASOPHIL % 0.2 % (0.0-2.0); EOSINOPHIL % 0.4 % (0.0-4.0); HEMATOCRIT 34.7 % (39.0-51.0); HEMO FLAGS DIFF FINAL; LYMPH % 9.6 % (9.0-44.0); LYMPHOCYTE # 1.2 TH/MM3 (1.0-4.8); MEAN CELL VOLUME 83.3 FL (80.0-100.0); MEAN CORPUSCULAR HEMOGLOBIN 26.4 PG (27.0-34.0); MEAN CORPUSCULAR HGB CONC 31.7 % (32.0-36.0); MONO % 3.6 % (0.0-8.0); NEUT % 86.2 % (16.0-70.0); PLATELET COUNT 246 TH/MM3 (150-450); RED BLOOD COUNT 4.17 MIL/MM3 (4.50-5.90); WHITE BLOOD COUNT 12.7 TH/MM3 (4.0-11.0)
[2017-07-02 08:25] LABS: BICARBONATE 32.1 MEQ/L (21.0-32.0); POTASSIUM 4.4 MEQ/L (3.5-5.1)
[2017-07-02] MEDS: SODIUM CHLORIDE 0.9% FLUSH 10 ML FLUSH IV FLUSH SCH ×2 (09:00→21:30)
--- NOTE | 2017-07-02 09:42 | RSPPFT ---
DATE OF PROCEDURE: 06/29/17 COMMENTS: VOLUMES DYNAMIC: FVC and FEV1 severely reduced. FLOWS: FEV1% moderately reduced; FEF 25-75 severely reduced. IMPRESSION: Very severe obstructive ventilatory defect.
[2017-07-02] MEDS: PREGABALIN 100 MG CAP PO SCH ×3 (09:47→18:00)
[2017-07-02] MEDS: predniSONE 20 MG TAB PO SCH ×2 (09:48→21:31)
[2017-07-02] MEDS: FAMOTIDINE 20 MG TAB PO SCH (09:48)
[2017-07-02] MEDS: DOCUSATE SODIUM 50 MG/SENNA 8.6 MG TAB PO SCH ×2 (09:48→21:00)
[2017-07-02] MEDS: ASPIRIN EC 81 MG TABEC PO SCH (09:48)
[2017-07-02] MEDS: CARVEDILOL 6.25 MG TAB PO SCH ×2 (09:48→21:29)
[2017-07-02] MEDS: CLOPIDOGREL 75 MG TAB PO SCH (09:48)
[2017-07-02] MEDS: LISINOPRIL 5 MG TAB PO SCH (09:48)
[2017-07-02] MEDS: CYANOCOBALAMIN 1,000 MCG TAB PO SCH (09:49)
[2017-07-02] MEDS: POTASSIUM CHLORIDE 10 MEQ CONTROLLED RELEASE TAB PO SCH (09:49)
[2017-07-02] MEDS: HEPARIN SODIUM - SQ 10,000 UNITS/ML VIAL SQ SCH ×2 (09:49→21:30)
[2017-07-02] MEDS: FUROSEMIDE 40 MG TAB PO SCH ×2 (09:49→18:00)
[2017-07-02] MEDS: INSULIN ASPART SUPPLEMENTAL SCALE SQ SCH ×4 (09:50→21:31)
[2017-07-02] MEDS: INSULIN DETEMIR 100 UNITS/ML VIAL SQ SCH ×2 (09:50→21:31)
[2017-07-02] MEDS: amLODIPine BESYLATE 5 MG TAB PO SCH (09:54)
--- NOTE | 2017-07-02 10:52 | PD.CARD.PN ---
Subjective Subjective Remarks No complaints Breathing much better, not on oxygen Objective Medications Current Medications Medications (Trade) Dose Ordered Sig/Nuzhat Route Start Time Stop Time Status Last Admin (Norvasc) 5 mg DAILY PO 06/21/17 09:00 07/02/17 09:54 (Ecotrin Ec) 81 mg DAILY PO 06/21/17 09:00 07/02/17 09:48 (Lipitor) 80 mg HS PO 06/20/17 21:00 07/01/17 20:44 (Coreg) 6.25 mg BID PO 06/20/17 21:00 07/02/17 09:48 (Plavix) 75 mg DAILY PO 06/21/17 09:00 Future hold 07/02/17 09:48 (Synthroid) 100 mcg DAILY@06 PO 06/21/17 06:00 07/02/17 06:25 (Pamelor) 75 mg HS PO 06/20/17 21:00 07/01/17 20:45 (Lyrica) 100 mg TID PO 06/21/17 09:00 07/02/17 09:47 (Vitamin B12) 1,000 mcg DAILY PO 06/21/17 09:00 07/02/17 09:49 (NS Flush) 2 ml UNSCH PRN IV FLUSH 06/20/17 19:00 (NS Flush) 2 ml BID IV FLUSH 06/20/17 21:00 07/02/17 09:00 (Tylenol) 650 mg Q6H PRN PO 06/20/17 19:00 06/23/17 17:51 (Zofran Inj) 4 mg Q6H PRN IV PUSH 06/20/17 19:00 (Duoneb Neb) 1 ampule Q2HR NEB PRN INH 06/20/17 19:00 06/28/17 16:57 Miscellaneous Information 1 Q361D XX 06/20/17 19:00 (Chlorhexidine 2% Cloth) Taper DAILY@04 TOP 06/21/17 04:00 06/17/18 03:59 06/27/17 01:00 (Chlorhexidine 2% Cloth) 3 pack UNSCH PRN TOP 06/20/17 19:00 (Afua-Colace) 1 tab BID PO 06/20/17 21:00 07/02/17 09:48 (Milk Of Magnesia Liq) 30 ml Q12H PRN PO 06/20/17 19:00 (Senokot) 17.2 mg Q12H PRN PO 06/20/17 19:00 (Dulcolax Supp) 10 mg DAILY PRN RECTAL 06/20/17 19:00 (Lactulose Liq) 30 ml DAILY PRN PO 06/20/17 19:00 ([place] 10-325 Mg) 1 tab Q6H PRN PO 06/21/17 12:15 07/02/17 09:55 (Xanax) 0.5 mg Q6H PRN PO 06/21/17 12:15 07/02/17 09:54 (Prinivil) 5 mg DAILY PO 06/24/17 09:00 07/02/17 09:48 (Heparin Inj) 5,000 units Q12HR SQ 06/26/17 16:00 07/02/17 09:49 (Pepcid) 20 mg BID PO 06/26/17 12:00 07/02/17 09:48 Cefazolin Sodium/ Dextrose 50 ml @ 150 mls/hr Q8H IV 06/28/17 18:00 07/02/17 09:49 (Levemir Inj) 5 units Q12HR SQ 07/01/17 10:15 07/02/17 09:50 (D50w (Vial) Inj) 50 ml UNSCH PRN IV PUSH 07/01/17 10:15 (Glucagon Inj) 1 mg UNSCH PRN OTHER 07/01/17 10:15 (NovoLOG SUPPLEMENTAL SCALE) 1 ACHS SLIDING SCALE SQ 07/01/17 12:00 07/02/17 09:50 (Deltasone) 10 mg BID PO 07/01/17 21:00 07/03/17 23:59 07/02/17 09:48 (Lasix) 40 mg BID@09,18 PO 07/01/17 18:00 07/02/17 09:49 (KCl) 10 meq DAILY PO 07/02/17 09:00 07/02/17 09:49 Vital Signs / I&O Vital Signs Date Time Temp Pulse Resp B/P (MAP) Pulse Ox O2 Delivery O2 Flow Rate FiO2 07/02/17 08:00 75 07/02/17 08:00 97.4 78 18 127/80 (96) 97 07/02/17 07:00 Room Air 2.00 21 07/02/17 05:23 16 07/02/17 00:00 76 18 121/67 (85) 97 07/01/17 20:47 90 16 122/76 (91) 97 07/01/17 20:47 Room Air 21 07/01/17 18:14 97 Room Air 07/01/17 17:00 84 07/01/17 16:00 98.6 85 20 104/54 (71) 97 07/01/17 15:00 80 07/01/17 14:00 96 07/01/17 13:00 76 07/01/17 12:00 98.2 96 22 118/69 (85) 96 07/01/17 11:00 76 I/O 07/01/17 07/01/17 07/01/17 07/02/17 07/02/17 07/02/17 07:00 15:00 23:00 07:00 15:00 23:00 Intake Total 680 ml 0 ml Output Total 0 ml 700 ml Balance 680 ml -700 ml 0 ml Intake Oral 680 ml 0 ml Output Urine Total 700 ml Emesis 0 ml # Voids 5 4 # Bowel Movements 0 2 Physical Exam GENERAL: NAD, AAOx3 SKIN: Warm and dry. HEAD: Atraumatic. Normocephalic. EYES: Pupils equal and round. No scleral icterus. No injection or drainage. ENT: No nasal bleeding or discharge. Mucous membranes pink and moist. NECK: Trachea midline. No JVD. CARDIOVASCULAR: Regular rate and rhythm. 2/6 holosystolic murmur noted at the apex RESPIRATORY: No accessory muscle use, clear to auscultation bilaterally GASTROINTESTINAL: Abdomen soft, non-tender, nondistended. Hepatic and splenic margins not palpable. MUSCULOSKELETAL: Extremities without clubbing, cyanosis, or edema. RLE with AKA. Left radial no hematoma, neurovascularly intact distally NEUROLOGICAL: Awake and alert. No obvious cranial nerve deficits. Motor grossly within normal limits. Five out of 5 muscle strength in the arms and legs. Normal speech. PSYCHIATRIC: Appropriate mood and affect; insight and judgment normal. Laboratory Laboratory Tests Test 07/02/17 07:50 White Blood Count 12.7 TH/MM3 Red Blood Count 4.17 MIL/MM3 Hemoglobin 11.0 GM/DL Hematocrit 34.7 % Mean Corpuscular Volume 83.3 FL Mean Corpuscular Hemoglobin 26.4 PG Mean Corpuscular Hemoglobin Concent 31.7 % Red Cell Distribution Width 17.0 % Platelet Count 246 TH/MM3 Mean Platelet Volume 9.3 FL Neutrophils (%) (Auto) 86.2 % Lymphocytes (%) (Auto) 9.6 % Monocytes (%) (Auto) 3.6 % Eosinophils (%) (Auto) 0.4 % Basophils (%) (Auto) 0.2 % Neutrophils # (Auto) 10.9 TH/MM3 Lymphocytes # (Auto) 1.2 TH/MM3 Monocytes # (Auto) 0.5 TH/MM3 Eosinophils # (Auto) 0.0 TH/MM3 Basophils # (Auto) 0.0 TH/MM3 CBC Comment DIFF FINAL Differential Comment Blood Urea Nitrogen 30 MG/DL Creatinine 1.16 MG/DL Random Glucose 282 MG/DL Calcium Level 7.9 MG/DL Sodium Level 132 MEQ/L Potassium Level 4.4 MEQ/L Chloride Level 95 MEQ/L Carbon Dioxide Level 32.1 MEQ/L Anion Gap 5 MEQ/L Estimat Glomerular Filtration Rate 64 ML/MIN Thyroid Stimulating Hormone 3rd Gen 3.680 uIU/ML Assessment and Plan Problem List: (1) Mitral regurgitation ICD Codes: I34.0 - Nonrheumatic mitral (valve) insufficiency (2) NSTEMI (non-ST elevated myocardial infarction) ICD Codes: I21.4 - Non-ST elevation (NSTEMI) myocardial infarction Status: Acute (3) Hx of CABG ICD Codes: Z95.1 - Presence of aortocoronary bypass graft (4) Anemia ICD Codes: D64.9 - Anemia, unspecified (5) DM (6) PVD (peripheral vascular disease) ICD Codes: I73.9 - Peripheral vascular disease, unspecified (7) Shortness of breath ICD Codes: R06.02 - Shortness of breath Status: Acute (8) Tobacco abuse ICD Codes: Z72.0 - Tobacco abuse Status: Chronic Assessment and Plan 1) EF 35-40% with severe MR Huge change compared to previous Diagnostic cardiac catheterization showing no change in CAD, 3/4 grafts patent as before YURIY showing severe MR, appears to have tethering of the posterior leaflet Discussed with CT surgery and ID 2) SOB due to CHF from MR 3) Attempt to diuresis as possible 4) Bacteremia 4/4 bottles positive (possible contaminant) ID following Further cultures so far negative YURIY negative for vegetation 5) Pleural effusion Thoracentesis done on the right, small pleural on the left 6) Plavix restarted 7) Plan for discharge if possible with anti-biotics and follow up with CT surgery in 4 weeks for reconsideration of surgery Problem Qualifiers (1) Mitral regurgitation: Qualified Codes: I34.0 - Nonrheumatic mitral (valve) insufficiency Anupam Richter DO Jul 02, 2017 10:52
[2017-07-02] MEDS ORDERED: PANTOPRAZOLE SOD 40 MG DELAYED RELEASE TAB PO ONE (13:30)
--- NOTE | 2017-07-02 14:59 | HHI.PR ---
Subjective Remarks Having a lot of heartburn today which has been a problem for him chronically. Has had esophageal dilations in the past due to scar tissue. Objective Vitals Vital Signs Date Time Temp Pulse Resp B/P (MAP) Pulse Ox O2 Delivery O2 Flow Rate FiO2 07/02/17 12:27 14 07/02/17 12:27 16 07/02/17 12:00 74 07/02/17 12:00 97.3 78 18 132/74 (93) 96 07/02/17 08:00 75 07/02/17 08:00 97.4 78 18 127/80 (96) 97 07/02/17 07:00 Room Air 2.00 21 07/02/17 00:00 76 18 121/67 (85) 97 07/01/17 20:47 90 16 122/76 (91) 97 07/01/17 20:47 Room Air 21 07/01/17 18:14 97 Room Air 07/01/17 17:00 84 07/01/17 16:00 98.6 85 20 104/54 (71) 97 07/01/17 15:00 80 I/O 07/01/17 07/01/17 07/01/17 07/02/17 07/02/17 07/02/17 07:00 15:00 23:00 07:00 15:00 23:00 Intake Total 680 ml 0 ml Output Total 0 ml 700 ml Balance 680 ml -700 ml 0 ml Intake Oral 680 ml 0 ml Output Urine Total 700 ml Emesis 0 ml # Voids 5 4 # Bowel Movements 0 2 Result Diagram: 07/02/17 0750 07/02/17 0750 Objective Remarks GENERAL: Well-nourished, well-developed lean male patient with.. SKIN: Warm and dry. HEAD: Normocephalic. EYES: No scleral icterus. No injection or drainage. NECK: Supple, trachea midline. No JVD or lymphadenopathy. CARDIOVASCULAR: Regular rate and rhythm without murmurs, gallops, or rubs. RESPIRATORY: Breath sounds equal bilaterally. No accessory muscle use. GASTROINTESTINAL: Abdomen soft, non-tender, nondistended. EXTREMITIES: No cyanosis, or edema. Right lower extremity status post remote AKA. NEUROLOGICAL: Awake, alert, and oriented x 3. Non-focal. A/P Problem List: (1) DM (diabetes mellitus) ICD Code: E11.9 - Type 2 diabetes mellitus without complications Status: Chronic (2) Type 2 diabetes mellitus ICD Code: E11.9 - Type 2 diabetes mellitus Status: Chronic (3) Mitral regurgitation ICD Code: I34.0 - Nonrheumatic mitral (valve) insufficiency (4) PVD (peripheral vascular disease) ICD Code: I73.9 - Peripheral vascular disease, unspecified (5) Systolic CHF, acute ICD Code: I50.21 - Acute systolic (congestive) heart failure (6) Bacteremia due to Staphylococcus aureus ICD Code: R78.81 - Bacteremia (7) Hx of CABG ICD Code: Z95.1 - Presence of aortocoronary bypass graft (8) Status post above knee amputation of right lower extremity ICD Code: Z89.611 - Acquired absence of right leg above knee Status: Acute (9) Peripheral vascular disease ICD Code: I73.9 - Peripheral vascular disease Status: Chronic (10) Hyponatremia ICD Code: E87.1 - Hyponatremia Status: Acute (11) CAD (coronary artery disease) ICD Code: I25.10 - Atherosclerotic heart disease of [place] coronary artery without angina pectoris Status: Chronic Assessment and Plan 62-year-old male with respiratory failure secondary to COPD exacerbation and CHF /mitral valve regurgitation. Patient also has MSSA bacteremia. YURIY negative for vegetation. Respiratory failure secondary to CHF/MR/pleural effusion - RESOLVED - EF 35-40% with severe MR. - Heart catheterization showing stable CAD. 3 out of 4 grafts patent. - CT surgery consulted. Recommendation to optimize medical management and they will reassess in about 4 weeks. Patient currently has a high risk for mortality if he has surgery. Infection needs to be under control first. - Continue by mouth Lasix. Continue lisinopril and Coreg. - Patient underwent thoracentesis on 06/29/17 with removal of 650 miles of fluid improvement of symptoms. NSTEMI/CAD: - Heart catheterization shows stable coronary artery disease. Recommends continuing medical management. - cont plavix, asa, statin - Continue Coreg. COPD exacerbation: improved, on RA -Taper prednisone and DC on 07/03 - Continue breathing treatments and supplemental oxygen as needed. MSSA bacteremia: Source unclear. echo neg for vegetations. - Infectious disease following. Plan for 4 weeks of IV antibiotics with Cefazolin. Type 2 diabetes/hyperglycemia: - Uncontrolled. Secondary to steroids. -cont Levemir 5 units subcutaneous every 12 hours, wean steroids - Continue sliding scale insulin with Accu-Cheks Hypothyroid Cont levothyroxine 100 daily Pain Management: Cont Lyrica 100mg TID and Nortriptyline HS (home med) Tylenol 650mg q6 PRN pain. [place] when necessary PVD s/p right AKA - has prosthesis. cont med management. GERD/hx esophagitis had EGD 11/2016 and had ulcerative esophagitis- start protonix, tums prn. -hx hypothyroidism - TSH wnl. DVT GI prophylaxis - Teds SCDs - Subcutaneous heparin - Pepcid for GI prophylaxis Discharge Planning Would need outpatient IV antibiotics arranged prior to discharge. Problem Qualifiers (1) Mitral regurgitation: Qualified Codes: I34.0 - Nonrheumatic mitral (valve) insufficiency Patricia Salazar MD Jul 02, 2017 14:59
[2017-07-02] MEDS: CALCIUM CARBONATE 500 MG CHEWABLE TAB CHEW PRN (15:14)
--- NOTE | 2017-07-02 16:24 | HHI.IDPN ---
Subjective Subjective Remarks YURIY negative for vegetation, but showed severe MR repeat blood clx are negative Antibiotics azithromycin oxacilllin Allergies: Coded Allergies: No Allergy Information Available (Unverified , 06/21/17) Objective . Vital Signs Date Time Temp Pulse Resp B/P (MAP) Pulse Ox O2 Delivery O2 Flow Rate FiO2 07/02/17 12:27 14 07/02/17 12:27 16 07/02/17 12:00 74 07/02/17 12:00 97.3 78 18 132/74 (93) 96 07/02/17 08:00 75 07/02/17 08:00 97.4 78 18 127/80 (96) 97 07/02/17 07:00 Room Air 2.00 21 07/02/17 00:00 76 18 121/67 (85) 97 07/01/17 20:47 90 16 122/76 (91) 97 07/01/17 20:47 Room Air 21 07/01/17 18:14 97 Room Air 07/01/17 17:00 84 07/02/17 07/02/17 07/03/17 15:00 23:00 07:00 Intake Total 0 ml Balance 0 ml Intake Oral 0 ml . Laboratory Tests Test 07/01/17 04:13 07/02/17 07:50 White Blood Count 9.6 TH/MM3 12.7 TH/MM3 Red Blood Count 3.63 MIL/MM3 4.17 MIL/MM3 Hemoglobin 9.8 GM/DL 11.0 GM/DL Hematocrit 29.9 % 34.7 % Mean Corpuscular Volume 82.3 FL 83.3 FL Mean Corpuscular Hemoglobin 27.1 PG 26.4 PG Mean Corpuscular Hemoglobin Concent 32.9 % 31.7 % Red Cell Distribution Width 16.9 % 17.0 % Platelet Count 220 TH/MM3 246 TH/MM3 Mean Platelet Volume 10.8 FL 9.3 FL Neutrophils (%) (Auto) 86.2 % Lymphocytes (%) (Auto) 9.6 % Monocytes (%) (Auto) 3.6 % Eosinophils (%) (Auto) 0.4 % Basophils (%) (Auto) 0.2 % Neutrophils # (Auto) 10.9 TH/MM3 Lymphocytes # (Auto) 1.2 TH/MM3 Monocytes # (Auto) 0.5 TH/MM3 Eosinophils # (Auto) 0.0 TH/MM3 Basophils # (Auto) 0.0 TH/MM3 CBC Comment DIFF FINAL Differential Comment Laboratory Tests Test 07/01/17 04:13 07/02/17 07:50 Blood Urea Nitrogen 37 MG/DL 30 MG/DL Creatinine 1.08 MG/DL 1.16 MG/DL Random Glucose 350 MG/DL 282 MG/DL Calcium Level 7.8 MG/DL 7.9 MG/DL Sodium Level 131 MEQ/L 132 MEQ/L Potassium Level 4.3 MEQ/L 4.4 MEQ/L Chloride Level 93 MEQ/L 95 MEQ/L Carbon Dioxide Level 31.9 MEQ/L 32.1 MEQ/L Anion Gap 6 MEQ/L 5 MEQ/L Estimat Glomerular Filtration Rate 70 ML/MIN 64 ML/MIN Thyroid Stimulating Hormone 3rd Gen 3.680 uIU/ML Imaging Vital Signs Date Time Temp Pulse Resp B/P (MAP) Pulse Ox O2 Delivery O2 Flow Rate FiO2 07/02/17 12:27 14 07/02/17 12:27 16 07/02/17 12:00 74 07/02/17 12:00 97.3 78 18 132/74 (93) 96 07/02/17 08:00 75 07/02/17 08:00 97.4 78 18 127/80 (96) 97 07/02/17 07:00 Room Air 2.00 21 07/02/17 00:00 76 18 121/67 (85) 97 07/01/17 20:47 90 16 122/76 (91) 97 07/01/17 20:47 Room Air 21 07/01/17 18:14 97 Room Air 07/01/17 17:00 84 Physical Exam CONSTITUTIONAL/GENERAL: This is an adequately nourished patient, in no apparent distress. TUBES/LINES/DRAINS: SKIN: No jaundice, rashes, or lesions. . Skin temperature appropriate. Not diaphoretic. EYES: Pupils equal and round and reactive. No scleral icterus. No injection or drainage. Fundi not examined. ENT: Hearing grossly normal. Nose without bleeding or purulent drainage. Oral mucosae without visible erythema, exudates, masses, or lesions. Poor dentition NECK: Trachea midline. Supple, nontender. CARDIOVASCULAR: Regular rate and rhythm without murmurs, gallops, or rubs. No JVD. Peripheral pulses symmetric. Well healed sternotomy scar RESPIRATORY/CHEST: Symmetric, unlabored respirations. Clear to auscultation. Breath sounds equal bilaterally. No wheezes, rales, or rhonchi. GASTROINTESTINAL: Abdomen soft, non-tender, nondistended. No hepato-splenomegaly , or palpable masses. No guarding. Bowel sounds present. MUSCULOSKELETAL: Extremities without clubbing, cyanosis, or edema. Sp R AKA NEUROLOGICAL: Awake and alert. Motor and sensory grossly within normal limits. Follows commands. Clear speech . Moves all extremities. PSYCHIATRIC: No obvious anxiety/depression. no apparent hallucinations or other psychotic thought process. Assessment & Plan Remarks A/p: MSSA bacteremia ? 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
[2017-07-02] MEDS: ATORVASTATIN 80 MG TAB PO SCH (21:29)
[2017-07-02] MEDS: NORTRIPTYLINE HCL 25 MG CAP PO SCH (21:30)
[2017-07-03] VITALS (28 sets, daily range): BP systolic 96–115; BP diastolic 60–73; PULSE 72–88; RESP 16–20; TEMP 97.3–98.3; O2SAT 96–100
[2017-07-03] MEDS: ceFAZolin 2 GM PREMIX 50 ML IV SCH ×3 (01:49→17:33)
[2017-07-03] MEDS: CHLORHEXIDINE GLUCONATE 2 % 1 PACK (2 CLOTHS) TOP SCH (04:00)
[2017-07-03] MEDS: LEVOTHYROXINE SODIUM 100 MCG TAB PO SCH (05:58)
[2017-07-03] MEDS: INSULIN ASPART SUPPLEMENTAL SCALE SQ SCH ×4 (08:00→20:29)
[2017-07-03] MEDS: amLODIPine BESYLATE 5 MG TAB PO SCH (08:39)
[2017-07-03] MEDS: ALPRAZolam 0.5 MG TAB PO PRN ×3 (08:39→20:14)
[2017-07-03] MEDS: CYANOCOBALAMIN 1,000 MCG TAB PO SCH (08:39)
[2017-07-03] MEDS: predniSONE 20 MG TAB PO SCH ×2 (08:40→20:09)
[2017-07-03] MEDS: POTASSIUM CHLORIDE 10 MEQ CONTROLLED RELEASE TAB PO SCH (08:40)
[2017-07-03] MEDS: CLOPIDOGREL 75 MG TAB PO SCH (08:40)
[2017-07-03] MEDS: ASPIRIN EC 81 MG TABEC PO SCH (08:40)
[2017-07-03] MEDS: FUROSEMIDE 40 MG TAB PO SCH ×2 (08:40→17:33)
[2017-07-03] MEDS: ACETAMINOPHEN/HYDROcodone 325 MG/10 MG TAB PO PRN ×3 (08:40→20:15)
[2017-07-03] MEDS: CARVEDILOL 6.25 MG TAB PO SCH ×2 (08:41→20:11)
[2017-07-03] MEDS: DOCUSATE SODIUM 50 MG/SENNA 8.6 MG TAB PO SCH ×2 (08:41→20:10)
[2017-07-03] MEDS: LISINOPRIL 5 MG TAB PO SCH (08:41)
[2017-07-03] MEDS: PREGABALIN 100 MG CAP PO SCH ×3 (08:41→17:33)
[2017-07-03] MEDS: PANTOPRAZOLE SOD 40 MG DELAYED RELEASE TAB PO SCH (08:41)
[2017-07-03] MEDS: SODIUM CHLORIDE 0.9% FLUSH 10 ML FLUSH IV FLUSH SCH ×2 (08:41→20:06)
[2017-07-03] MEDS: HEPARIN SODIUM - SQ 10,000 UNITS/ML VIAL SQ SCH ×2 (08:42→20:14)
[2017-07-03] MEDS: INSULIN DETEMIR 100 UNITS/ML VIAL SQ SCH ×2 (09:00→20:11)
--- NOTE | 2017-07-03 14:54 | HHI.PR ---
Subjective Remarks Denies any complaints. states breathing is much improved. Objective Vitals Vital Signs Date Time Temp Pulse Resp B/P (MAP) Pulse Ox O2 Delivery O2 Flow Rate FiO2 07/03/17 14:01 78 07/03/17 13:00 78 07/03/17 12:00 74 07/03/17 11:15 97.7 75 18 114/73 (87) 99 07/03/17 11:00 77 07/03/17 10:00 72 07/03/17 09:00 74 07/03/17 08:15 97.7 75 18 115/70 (85) 100 07/03/17 08:15 100 Room Air 07/03/17 08:00 80 07/03/17 07:01 77 07/03/17 06:00 88 07/03/17 05:00 76 07/03/17 04:00 78 07/03/17 03:30 97.3 73 16 115/69 (84) 96 07/03/17 03:00 75 07/03/17 02:00 78 07/03/17 01:00 82 07/03/17 00:00 80 07/02/17 23:00 82 07/02/17 23:00 97.9 82 16 126/75 (92) 100 07/02/17 22:00 80 07/02/17 21:00 86 07/02/17 20:00 80 07/02/17 20:00 99 Room Air 07/02/17 20:00 98.4 82 16 110/68 (82) 99 07/02/17 19:00 82 07/02/17 16:00 97.9 89 18 132/75 (94) 96 07/02/17 16:00 92 07/02/17 16:00 14 I/O 07/02/17 07/02/17 07/02/17 07/03/17 07/03/17 07/03/17 07:00 15:00 23:00 07:00 15:00 23:00 Intake Total 0 ml 750 ml 440 ml Output Total 550 ml Balance 0 ml 750 ml -110 ml Intake Oral 0 ml 750 ml 390 ml IV Total 50 ml Output Urine Total 550 ml # Voids 6 # Bowel Movements 0 Result Diagram: 07/02/17 0750 07/02/17 0750 Objective Remarks GENERAL: NAD, AAOx3 SKIN: Warm and dry. HEAD: Atraumatic. Normocephalic. EYES: Pupils equal and round. No scleral icterus. No injection or drainage. ENT: No nasal bleeding or discharge. Mucous membranes pink and moist. NECK: Trachea midline. No JVD. CARDIOVASCULAR: Regular rate and rhythm. 2/6 holosystolic murmur noted at the apex RESPIRATORY: No accessory muscle use, clear to auscultation bilaterally GASTROINTESTINAL: Abdomen soft, non-tender, nondistended. Hepatic and splenic margins not palpable. MUSCULOSKELETAL: Extremities without clubbing, cyanosis, or edema. RLE with AKA. Left radial no hematoma, neurovascularly intact distally NEUROLOGICAL: Awake and alert. No obvious cranial nerve deficits. Motor grossly within normal limits. Five out of 5 muscle strength in the arms and legs. Normal speech. PSYCHIATRIC: Appropriate mood and affect; insight and judgment normal. A/P Problem List: (1) DM (diabetes mellitus) ICD Code: E11.9 - Type 2 diabetes mellitus without complications Status: Chronic (2) Type 2 diabetes mellitus ICD Code: E11.9 - Type 2 diabetes mellitus Status: Chronic (3) Mitral regurgitation ICD Code: I34.0 - Nonrheumatic mitral (valve) insufficiency (4) PVD (peripheral vascular disease) ICD Code: I73.9 - Peripheral vascular disease, unspecified (5) Systolic CHF, acute ICD Code: I50.21 - Acute systolic (congestive) heart failure (6) Bacteremia due to Staphylococcus aureus ICD Code: R78.81 - Bacteremia (7) Hx of CABG ICD Code: Z95.1 - Presence of aortocoronary bypass graft (8) Status post above knee amputation of right lower extremity ICD Code: Z89.611 - Acquired absence of right leg above knee Status: Acute (9) Peripheral vascular disease ICD Code: I73.9 - Peripheral vascular disease Status: Chronic (10) Hyponatremia ICD Code: E87.1 - Hyponatremia Status: Acute (11) CAD (coronary artery disease) ICD Code: I25.10 - Atherosclerotic heart disease of [place] coronary artery without angina pectoris Status: Chronic Assessment and Plan 62-year-old male with respiratory failure secondary to COPD exacerbation and CHF /mitral valve regurgitation. Patient also has MSSA bacteremia. YURIY negative for vegetation. Respiratory failure secondary to CHF/MR/pleural effusion - RESOLVED - EF 35-40% with severe MR. - Heart catheterization showing stable CAD. 3 out of 4 grafts patent. - CT surgery consulted. Recommendation to optimize medical management and they will reassess in about 4 weeks. Patient currently has a high risk for mortality if he has surgery. Infection needs to be under control first. - Continue by mouth Lasix. Continue lisinopril and Coreg. - Patient underwent thoracentesis on 06/29/17 with removal of 650 miles of fluid improvement of symptoms. NSTEMI/CAD: - Heart catheterization shows stable coronary artery disease. Recommends continuing medical management. - cont plavix, asa, statin - Continue Coreg. COPD exacerbation: improved, on RA -Taper prednisone and DC on 07/03 - Continue breathing treatments and supplemental oxygen as needed. MSSA bacteremia: Source unclear. echo neg for vegetations. - Infectious disease following. Plan for 4 weeks of IV antibiotics with Cefazolin. Type 2 diabetes/hyperglycemia: - Uncontrolled. Secondary to steroids. -cont Levemir 5 units subcutaneous every 12 hours, wean steroids - Continue sliding scale insulin with Accu-Cheks Hypothyroid Cont levothyroxine 100 daily Pain Management: Cont Lyrica 100mg TID and Nortriptyline HS (home med) Tylenol 650mg q6 PRN pain. [place] when necessary PVD s/p right AKA - has prosthesis. cont med management. GERD/hx esophagitis had EGD 11/2016 and had ulcerative esophagitis- start protonix, tums prn. -hx hypothyroidism - TSH wnl. DVT GI prophylaxis - Teds SCDs - Subcutaneous heparin - Pepcid for GI prophylaxis Discharge Planning Dc pending antibiotic authorization. Problem Qualifiers (1) Mitral regurgitation: Qualified Codes: I34.0 - Nonrheumatic mitral (valve) insufficiency Jl Savage MD Jul 03, 2017 14:54
--- NOTE | 2017-07-03 16:11 | HHI.FF ---
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 [] May leave port accessed during therapy. [] May leave peripheral site accessed for duration of therapy. [x] If patient has SOB or respiratory distress, check oxygen saturation. If less than 90% or clinical signs of respiratory distress, administer oxygen at 2 L/min. via nasal cannula and notify physician. [x] Anaphylaxis/Reaction orders: * Stop infusion. * Keep IV line open with saline flush. * Notify physician. * Monitor vital signs every 15 minutes until symptoms resolve. * Check Oxygen saturation; Oxygen at 2 L/min. via nasal cannula if less than 90% or clinical signs of respiratory distress. * Administer diphenhydramine (Benadryl) 25 mg IV STAT, (unless patient has received as pre-med). May repeat once, if necessary. * Solu-Cortef 250 mg IVP over 30-60 seconds, use 100 mg vials for each dissolution. * Epinephrine (1mg/1 ml) 0.3 mg subcutaneously or IVP now with any signs of respiratory distress. * Check with physician for new additional pre-med orders if patient is re- challenged or re-treated. [x] May remove PICC line when treatment complete, after confirming with Physician. [x] If the patient is admitted to the hospital, the ED, or transferred via [facility] , complete transfer form including medication reconciliation order sheet. Laboratory Tests Weekly Labs: CBC w/diff, Creatinine Brittany Collazo MD Jul 03, 2017 16:11
[2017-07-03] MEDS ORDERED: SOLU250I IV PUSH (16:15)
[2017-07-03] MEDS ORDERED: EPIN1INJ21 IV PUSH (16:15)
[2017-07-03] MEDS ORDERED: EPIN1INJ21 SQ (16:15)
[2017-07-03] MEDS ORDERED: CEFA2SOL IV (16:15)
[2017-07-03] MEDS: INSULIN ASPART 1,000 UNITS/10 ML VIAL SQ SCH (17:00)
[2017-07-03 17:11] LABS: BICARBONATE 32.5 MEQ/L (21.0-32.0)
--- NOTE | 2017-07-03 18:00 | PD.CARD.PN ---
Subjective Subjective Remarks No complaints Breathing much better, not on oxygen Objective Medications Current Medications Medications (Trade) Dose Ordered Sig/Nuzhat Route Start Time Stop Time Status Last Admin (Norvasc) 5 mg DAILY PO 06/21/17 09:00 07/03/17 08:39 (Ecotrin Ec) 81 mg DAILY PO 06/21/17 09:00 07/03/17 08:40 (Lipitor) 80 mg HS PO 06/20/17 21:00 07/02/17 21:29 (Coreg) 6.25 mg BID PO 06/20/17 21:00 07/03/17 08:41 (Plavix) 75 mg DAILY PO 06/21/17 09:00 Future hold 07/03/17 08:40 (Synthroid) 100 mcg DAILY@06 PO 06/21/17 06:00 07/03/17 05:58 (Pamelor) 75 mg HS PO 06/20/17 21:00 07/02/17 21:30 (Lyrica) 100 mg TID PO 06/21/17 09:00 07/03/17 17:33 (Vitamin B12) 1,000 mcg DAILY PO 06/21/17 09:00 07/03/17 08:39 (NS Flush) 2 ml UNSCH PRN IV FLUSH 06/20/17 19:00 (NS Flush) 2 ml BID IV FLUSH 06/20/17 21:00 07/03/17 08:41 (Tylenol) 650 mg Q6H PRN PO 06/20/17 19:00 06/23/17 17:51 (Zofran Inj) 4 mg Q6H PRN IV PUSH 06/20/17 19:00 (Duoneb Neb) 1 ampule Q2HR NEB PRN INH 06/20/17 19:00 06/28/17 16:57 Miscellaneous Information 1 Q361D XX 06/20/17 19:00 (Chlorhexidine 2% Cloth) Taper DAILY@04 TOP 06/21/17 04:00 06/17/18 03:59 06/27/17 01:00 (Chlorhexidine 2% Cloth) 3 pack UNSCH PRN TOP 06/20/17 19:00 (Afua-Colace) 1 tab BID PO 06/20/17 21:00 07/02/17 09:48 (Milk Of Magnesia Liq) 30 ml Q12H PRN PO 06/20/17 19:00 (Senokot) 17.2 mg Q12H PRN PO 06/20/17 19:00 (Dulcolax Supp) 10 mg DAILY PRN RECTAL 06/20/17 19:00 (Lactulose Liq) 30 ml DAILY PRN PO 06/20/17 19:00 ([place] 10-325 Mg) 1 tab Q6H PRN PO 06/21/17 12:15 07/03/17 14:47 (Xanax) 0.5 mg Q6H PRN PO 06/21/17 12:15 07/03/17 14:47 (Prinivil) 5 mg DAILY PO 06/24/17 09:00 07/03/17 08:41 (Heparin Inj) 5,000 units Q12HR SQ 06/26/17 16:00 07/03/17 08:42 Cefazolin Sodium/ Dextrose 50 ml @ 150 mls/hr Q8H IV 06/28/17 18:00 07/03/17 17:33 (D50w (Vial) Inj) 50 ml UNSCH PRN IV PUSH 07/01/17 10:15 (Glucagon Inj) 1 mg UNSCH PRN OTHER 07/01/17 10:15 (Deltasone) 10 mg BID PO 07/01/17 21:00 07/03/17 23:59 07/03/17 08:40 (Lasix) 40 mg BID@09,18 PO 07/01/17 18:00 07/03/17 17:33 (KCl) 10 meq DAILY PO 07/02/17 09:00 07/03/17 08:40 (Protonix) 40 mg DAILY PO 07/03/17 09:00 07/03/17 08:41 (Tums Chew) 500 mg Q2H PRN CHEW 07/02/17 15:00 07/02/17 15:14 (NovoLOG SUPPLEMENTAL SCALE) 1 ACHS SLIDING SCALE SQ 07/03/17 17:00 07/03/17 17:00 (Levemir Inj) 10 units Q12HR SQ 07/03/17 21:00 (NovoLOG INJ) 5 units TIDAC SQ 07/03/17 17:00 07/03/17 17:00 Vital Signs / I&O Vital Signs Date Time Temp Pulse Resp B/P (MAP) Pulse Ox O2 Delivery O2 Flow Rate FiO2 07/03/17 17:01 76 07/03/17 16:00 80 07/03/17 15:15 98.3 79 18 96/60 (72) 98 07/03/17 15:00 78 07/03/17 14:01 78 07/03/17 13:00 78 07/03/17 12:00 74 07/03/17 11:15 97.7 75 18 114/73 (87) 99 07/03/17 11:00 77 07/03/17 10:00 72 07/03/17 09:00 74 07/03/17 08:15 97.7 75 18 115/70 (85) 100 07/03/17 08:15 100 Room Air 07/03/17 08:00 80 07/03/17 07:01 77 07/03/17 06:00 88 07/03/17 05:00 76 07/03/17 04:00 78 07/03/17 03:30 97.3 73 16 115/69 (84) 96 07/03/17 03:00 75 07/03/17 02:00 78 07/03/17 01:00 82 07/03/17 00:00 80 07/02/17 23:00 82 07/02/17 23:00 97.9 82 16 126/75 (92) 100 07/02/17 22:00 80 07/02/17 21:00 86 07/02/17 20:00 80 07/02/17 20:00 99 Room Air 07/02/17 20:00 98.4 82 16 110/68 (82) 99 07/02/17 19:00 82 I/O 07/02/17 07/02/17 07/02/17 07/03/17 07/03/17 07/03/17 07:00 15:00 23:00 07:00 15:00 23:00 Intake Total 0 ml 750 ml 440 ml Output Total 550 ml Balance 0 ml 750 ml -110 ml Intake Oral 0 ml 750 ml 390 ml IV Total 50 ml Output Urine Total 550 ml # Voids 6 # Bowel Movements 0 Physical Exam GENERAL: NAD, AAOx3 SKIN: Warm and dry. HEAD: Atraumatic. Normocephalic. EYES: Pupils equal and round. No scleral icterus. No injection or drainage. ENT: No nasal bleeding or discharge. Mucous membranes pink and moist. NECK: Trachea midline. No JVD. CARDIOVASCULAR: Regular rate and rhythm. 2/6 holosystolic murmur noted at the apex RESPIRATORY: No accessory muscle use, clear to auscultation bilaterally GASTROINTESTINAL: Abdomen soft, non-tender, nondistended. Hepatic and splenic margins not palpable. MUSCULOSKELETAL: Extremities without clubbing, cyanosis, or edema. RLE with AKA. Left radial no hematoma, neurovascularly intact distally NEUROLOGICAL: Awake and alert. No obvious cranial nerve deficits. Motor grossly within normal limits. Five out of 5 muscle strength in the arms and legs. Normal speech. PSYCHIATRIC: Appropriate mood and affect; insight and judgment normal. Laboratory Laboratory Tests Test 07/03/17 16:00 Blood Urea Nitrogen 26 MG/DL Creatinine 1.06 MG/DL Random Glucose 254 MG/DL Calcium Level 8.0 MG/DL Sodium Level 131 MEQ/L Potassium Level 4.0 MEQ/L Chloride Level 93 MEQ/L Carbon Dioxide Level 32.5 MEQ/L Anion Gap 6 MEQ/L Estimat Glomerular Filtration Rate 71 ML/MIN Assessment and Plan Problem List: (1) Mitral regurgitation ICD Codes: I34.0 - Nonrheumatic mitral (valve) insufficiency (2) NSTEMI (non-ST elevated myocardial infarction) ICD Codes: I21.4 - Non-ST elevation (NSTEMI) myocardial infarction Status: Acute (3) Hx of CABG ICD Codes: Z95.1 - Presence of aortocoronary bypass graft (4) Anemia ICD Codes: D64.9 - Anemia, unspecified (5) DM (6) PVD (peripheral vascular disease) ICD Codes: I73.9 - Peripheral vascular disease, unspecified (7) Shortness of breath ICD Codes: R06.02 - Shortness of breath Status: Acute (8) Tobacco abuse ICD Codes: Z72.0 - Tobacco abuse Status: Chronic Assessment and Plan 1) EF 35-40% with severe MR Huge change compared to previous Diagnostic cardiac catheterization showing no change in CAD, 3/4 grafts patent as before YURIY showing severe MR, appears to have tethering of the posterior leaflet Discussed with CT surgery and ID 2) SOB due to CHF from MR 3) Attempt to diuresis as possible 4) Bacteremia 4/4 bottles positive (possible contaminant) ID following Further cultures so far negative YURIY negative for vegetation 5) Pleural effusion Thoracentesis done on the right, small pleural on the left 6) Plavix restarted 7) Plan for discharge if possible with anti-biotics and follow up with CT surgery in 4 weeks for reconsideration of surgery Discussed with primary team Problem Qualifiers (1) Mitral regurgitation: Qualified Codes: I34.0 - Nonrheumatic mitral (valve) insufficiency Anupam Richter DO Jul 03, 2017 18:00
[2017-07-03] MEDS: NORTRIPTYLINE HCL 25 MG CAP PO SCH (20:11)
[2017-07-03] MEDS: ATORVASTATIN 80 MG TAB PO SCH (20:11)
[2017-07-04] VITALS (14 sets, daily range): BP systolic 88–117; BP diastolic 53–80; PULSE 74–98; RESP 14–20; TEMP 97.6–98.5; O2SAT 97–99
[2017-07-04] MEDS: CHLORHEXIDINE GLUCONATE 2 % 1 PACK (2 CLOTHS) TOP SCH (00:52)
[2017-07-04] MEDS: ceFAZolin 2 GM PREMIX 50 ML IV SCH ×3 (02:21→17:44)
[2017-07-04] MEDS: ACETAMINOPHEN/HYDROcodone 325 MG/10 MG TAB PO PRN ×3 (02:22→15:53)
[2017-07-04] MEDS: ALPRAZolam 0.5 MG TAB PO PRN ×3 (02:22→15:53)
[2017-07-04] MEDS: LEVOTHYROXINE SODIUM 100 MCG TAB PO SCH (05:43)
[2017-07-04 06:44] LABS: MEAN CELL VOLUME 82.5 FL (80.0-100.0); MEAN CORPUSCULAR HEMOGLOBIN 26.9 PG (27.0-34.0); MEAN CORPUSCULAR HGB CONC 32.6 % (32.0-36.0); PLATELET COUNT 250 TH/MM3 (150-450); RED CELL DISTRIBUTION WIDTH 17.2 % (11.6-17.2); REVIEW FLAG FINAL; WHITE BLOOD COUNT 18.8 TH/MM3 (4.0-11.0)
[2017-07-04] MEDS: CARVEDILOL 6.25 MG TAB PO SCH ×2 (09:09→21:00)
[2017-07-04] MEDS: DOCUSATE SODIUM 50 MG/SENNA 8.6 MG TAB PO SCH ×2 (09:09→21:52)
[2017-07-04] MEDS: CLOPIDOGREL 75 MG TAB PO SCH (09:09)
[2017-07-04] MEDS: PREGABALIN 100 MG CAP PO SCH ×3 (09:09→17:44)
[2017-07-04] MEDS: CYANOCOBALAMIN 1,000 MCG TAB PO SCH (09:09)
[2017-07-04] MEDS: FUROSEMIDE 40 MG TAB PO SCH ×2 (09:09→17:44)
[2017-07-04] MEDS: ASPIRIN EC 81 MG TABEC PO SCH (09:09)
[2017-07-04] MEDS: SODIUM CHLORIDE 0.9% FLUSH 10 ML FLUSH IV FLUSH SCH ×2 (09:10→21:55)
[2017-07-04] MEDS: PANTOPRAZOLE SOD 40 MG DELAYED RELEASE TAB PO SCH (09:10)
[2017-07-04] MEDS: POTASSIUM CHLORIDE 10 MEQ CONTROLLED RELEASE TAB PO SCH (09:10)
[2017-07-04] MEDS: HEPARIN SODIUM - SQ 10,000 UNITS/ML VIAL SQ SCH ×2 (09:10→21:51)
[2017-07-04] MEDS: amLODIPine BESYLATE 5 MG TAB PO SCH (09:10)
[2017-07-04] MEDS: LISINOPRIL 5 MG TAB PO SCH (09:10)
[2017-07-04] MEDS: INSULIN ASPART 1,000 UNITS/10 ML VIAL SQ SCH ×3 (09:55→17:45)
[2017-07-04] MEDS: INSULIN ASPART SUPPLEMENTAL SCALE SQ SCH ×4 (09:55→21:00)
[2017-07-04] MEDS: INSULIN DETEMIR 100 UNITS/ML VIAL SQ SCH ×2 (09:56→21:51)
--- NOTE | 2017-07-04 11:20 | PD.CARD.PN ---
Subjective Subjective Remarks No complaints Breathing much better, not on oxygen, up and walking with walker Objective Medications Current Medications Medications (Trade) Dose Ordered Sig/Nuzhat Route Start Time Stop Time Status Last Admin (Norvasc) 5 mg DAILY PO 06/21/17 09:00 07/04/17 09:10 (Ecotrin Ec) 81 mg DAILY PO 06/21/17 09:00 07/04/17 09:09 (Lipitor) 80 mg HS PO 06/20/17 21:00 07/03/17 20:11 (Coreg) 6.25 mg BID PO 06/20/17 21:00 07/04/17 09:09 (Plavix) 75 mg DAILY PO 06/21/17 09:00 Future hold 07/04/17 09:09 (Synthroid) 100 mcg DAILY@06 PO 06/21/17 06:00 07/04/17 05:43 (Pamelor) 75 mg HS PO 06/20/17 21:00 07/03/17 20:11 (Lyrica) 100 mg TID PO 06/21/17 09:00 07/04/17 09:09 (Vitamin B12) 1,000 mcg DAILY PO 06/21/17 09:00 07/04/17 09:09 (NS Flush) 2 ml UNSCH PRN IV FLUSH 06/20/17 19:00 07/04/17 02:22 (NS Flush) 2 ml BID IV FLUSH 06/20/17 21:00 07/04/17 09:10 (Tylenol) 650 mg Q6H PRN PO 06/20/17 19:00 06/23/17 17:51 (Zofran Inj) 4 mg Q6H PRN IV PUSH 06/20/17 19:00 (Duoneb Neb) 1 ampule Q2HR NEB PRN INH 06/20/17 19:00 06/28/17 16:57 Miscellaneous Information 1 Q361D XX 06/20/17 19:00 (Chlorhexidine 2% Cloth) Taper DAILY@04 TOP 06/21/17 04:00 06/17/18 03:59 06/27/17 01:00 (Chlorhexidine 2% Cloth) 3 pack UNSCH PRN TOP 06/20/17 19:00 (Afua-Colace) 1 tab BID PO 06/20/17 21:00 07/04/17 09:09 (Milk Of Magnesia Liq) 30 ml Q12H PRN PO 06/20/17 19:00 (Senokot) 17.2 mg Q12H PRN PO 06/20/17 19:00 (Dulcolax Supp) 10 mg DAILY PRN RECTAL 06/20/17 19:00 (Lactulose Liq) 30 ml DAILY PRN PO 06/20/17 19:00 ([place] 10-325 Mg) 1 tab Q6H PRN PO 06/21/17 12:15 07/04/17 09:55 (Xanax) 0.5 mg Q6H PRN PO 06/21/17 12:15 07/04/17 09:55 (Prinivil) 5 mg DAILY PO 06/24/17 09:00 07/04/17 09:10 (Heparin Inj) 5,000 units Q12HR SQ 06/26/17 16:00 07/04/17 09:10 Cefazolin Sodium/ Dextrose 50 ml @ 150 mls/hr Q8H IV 06/28/17 18:00 07/04/17 09:11 (D50w (Vial) Inj) 50 ml UNSCH PRN IV PUSH 07/01/17 10:15 (Glucagon Inj) 1 mg UNSCH PRN OTHER 07/01/17 10:15 (Lasix) 40 mg BID@09,18 PO 07/01/17 18:00 07/04/17 09:09 (KCl) 10 meq DAILY PO 07/02/17 09:00 07/04/17 09:10 (Protonix) 40 mg DAILY PO 07/03/17 09:00 07/04/17 09:10 (Tums Chew) 500 mg Q2H PRN CHEW 07/02/17 15:00 07/02/17 15:14 (NovoLOG SUPPLEMENTAL SCALE) 1 ACHS SLIDING SCALE SQ 07/03/17 17:00 07/04/17 09:55 (Levemir Inj) 10 units Q12HR SQ 07/03/17 21:00 07/04/17 09:56 (NovoLOG INJ) 5 units TIDAC SQ 07/03/17 17:00 07/04/17 09:55 Vital Signs / I&O Vital Signs Date Time Temp Pulse Resp B/P (MAP) Pulse Ox O2 Delivery O2 Flow Rate FiO2 07/04/17 09:00 97.8 74 18 113/66 (82) 07/04/17 06:00 88 07/04/17 05:00 84 07/04/17 04:00 97.6 87 20 117/80 (92) 97 07/04/17 04:00 86 07/04/17 03:22 18 07/04/17 03:00 88 07/04/17 02:00 96 07/04/17 01:00 84 07/04/17 00:00 97.9 83 20 108/59 (75) 99 07/04/17 00:00 86 07/03/17 23:00 88 07/03/17 22:00 82 07/03/17 21:00 84 07/03/17 20:00 97.7 84 20 105/67 (80) 100 07/03/17 20:00 100 Room Air 07/03/17 20:00 81 07/03/17 19:00 78 07/03/17 18:00 81 07/03/17 17:01 76 07/03/17 16:00 80 07/03/17 15:15 98.3 79 18 96/60 (72) 98 07/03/17 15:00 78 07/03/17 14:01 78 07/03/17 13:00 78 07/03/17 12:00 74 I/O 07/03/17 07/03/17 07/03/17 07/04/17 07/04/17 07/04/17 07:00 15:00 23:00 07:00 15:00 23:00 Intake Total 440 ml 960 ml 240 ml Output Total 550 ml Balance -110 ml 960 ml 240 ml Intake Oral 390 ml 960 ml 240 ml IV Total 50 ml Output Urine Total 550 ml # Voids 3 1 # Bowel Movements 0 1 1 Physical Exam GENERAL: NAD, AAOx3 SKIN: Warm and dry. HEAD: Atraumatic. Normocephalic. EYES: Pupils equal and round. No scleral icterus. No injection or drainage. ENT: No nasal bleeding or discharge. Mucous membranes pink and moist. NECK: Trachea midline. No JVD. CARDIOVASCULAR: Regular rate and rhythm. 2/6 holosystolic murmur noted at the apex RESPIRATORY: No accessory muscle use, clear to auscultation bilaterally GASTROINTESTINAL: Abdomen soft, non-tender, nondistended. Hepatic and splenic margins not palpable. MUSCULOSKELETAL: Extremities without clubbing, cyanosis, or edema. RLE with AKA. Left radial no hematoma, neurovascularly intact distally NEUROLOGICAL: Awake and alert. No obvious cranial nerve deficits. Motor grossly within normal limits. Five out of 5 muscle strength in the arms and legs. Normal speech. PSYCHIATRIC: Appropriate mood and affect; insight and judgment normal. Laboratory Laboratory Tests Test 07/03/17 16:00 07/04/17 06:25 Blood Urea Nitrogen 26 MG/DL Creatinine 1.06 MG/DL Random Glucose 254 MG/DL Calcium Level 8.0 MG/DL Sodium Level 131 MEQ/L Potassium Level 4.0 MEQ/L Chloride Level 93 MEQ/L Carbon Dioxide Level 32.5 MEQ/L Anion Gap 6 MEQ/L Estimat Glomerular Filtration Rate 71 ML/MIN White Blood Count 18.8 TH/MM3 Red Blood Count 4.00 MIL/MM3 Hemoglobin 10.8 GM/DL Hematocrit 33.0 % Mean Corpuscular Volume 82.5 FL Mean Corpuscular Hemoglobin 26.9 PG Mean Corpuscular Hemoglobin Concent 32.6 % Red Cell Distribution Width 17.2 % Platelet Count 250 TH/MM3 Mean Platelet Volume 9.3 FL Assessment and Plan Problem List: (1) Mitral regurgitation ICD Codes: I34.0 - Nonrheumatic mitral (valve) insufficiency (2) NSTEMI (non-ST elevated myocardial infarction) ICD Codes: I21.4 - Non-ST elevation (NSTEMI) myocardial infarction Status: Acute (3) Hx of CABG ICD Codes: Z95.1 - Presence of aortocoronary bypass graft (4) Anemia ICD Codes: D64.9 - Anemia, unspecified (5) DM (6) PVD (peripheral vascular disease) ICD Codes: I73.9 - Peripheral vascular disease, unspecified (7) Shortness of breath ICD Codes: R06.02 - Shortness of breath Status: Acute (8) Tobacco abuse ICD Codes: Z72.0 - Tobacco abuse Status: Chronic Assessment and Plan 1) EF 35-40% with severe MR Huge change compared to previous Diagnostic cardiac catheterization showing no change in CAD, 3/4 grafts patent as before YURIY showing severe MR, appears to have tethering of the posterior leaflet Discussed with CT surgery and ID 2) SOB due to CHF from MR 3) Attempt to diuresis as possible 4) Bacteremia 4/4 bottles positive (possible contaminant) ID following Further cultures so far negative YURIY negative for vegetation 5) Pleural effusion Thoracentesis done on the right, small pleural on the left 6) Plavix restarted 7) Plan for discharge if possible with anti-biotics and follow up with CT surgery in 4 weeks for reconsideration of surgery Discussed with primary team Problem Qualifiers (1) Mitral regurgitation: Qualified Codes: I34.0 - Nonrheumatic mitral (valve) insufficiency Anupam Richter DO Jul 04, 2017 11:20
[2017-07-04 11:57] LABS: POTASSIUM 4.3 MEQ/L (3.5-5.1)
[2017-07-04] MEDS: ATORVASTATIN 80 MG TAB PO SCH (21:52)
[2017-07-04] MEDS: NORTRIPTYLINE HCL 25 MG CAP PO SCH (21:54)
[2017-07-05] VITALS (16 sets, daily range): BP systolic 96–109; BP diastolic 59–67; PULSE 74–91; RESP 14–18; TEMP 97.4–98.4; O2SAT 95–100
[2017-07-05] MEDS: CHLORHEXIDINE GLUCONATE 2 % 1 PACK (2 CLOTHS) TOP SCH (00:26)
[2017-07-05] MEDS: ALPRAZolam 0.5 MG TAB PO PRN ×2 (00:33→10:24)
[2017-07-05] MEDS: CALCIUM CARBONATE 500 MG CHEWABLE TAB CHEW PRN (00:33)
[2017-07-05] MEDS: ACETAMINOPHEN/HYDROcodone 325 MG/10 MG TAB PO PRN ×2 (00:33→10:14)
[2017-07-05] MEDS: ceFAZolin 2 GM PREMIX 50 ML IV SCH ×2 (00:34→10:08)
[2017-07-05] MEDS: LEVOTHYROXINE SODIUM 100 MCG TAB PO SCH (04:54)
[2017-07-05] MEDS: INSULIN ASPART SUPPLEMENTAL SCALE SQ SCH ×2 (08:00→12:00)
[2017-07-05] MEDS: SODIUM CHLORIDE 0.9% FLUSH 10 ML FLUSH IV FLUSH SCH (09:00)
[2017-07-05] MEDS: FUROSEMIDE 40 MG TAB PO SCH (10:13)
[2017-07-05] MEDS: HEPARIN SODIUM - SQ 10,000 UNITS/ML VIAL SQ SCH (10:13)
[2017-07-05] MEDS: POTASSIUM CHLORIDE 10 MEQ CONTROLLED RELEASE TAB PO SCH (10:13)
[2017-07-05] MEDS: CYANOCOBALAMIN 1,000 MCG TAB PO SCH (10:13)
[2017-07-05] MEDS: PANTOPRAZOLE SOD 40 MG DELAYED RELEASE TAB PO SCH (10:13)
[2017-07-05] MEDS: CLOPIDOGREL 75 MG TAB PO SCH (10:14)
[2017-07-05] MEDS: amLODIPine BESYLATE 5 MG TAB PO SCH (10:14)
[2017-07-05] MEDS: ASPIRIN EC 81 MG TABEC PO SCH (10:14)
[2017-07-05] MEDS: CARVEDILOL 6.25 MG TAB PO SCH (10:14)
[2017-07-05] MEDS: PREGABALIN 100 MG CAP PO SCH ×2 (10:15→13:00)
[2017-07-05] MEDS: LISINOPRIL 5 MG TAB PO SCH (10:15)
[2017-07-05] MEDS: DOCUSATE SODIUM 50 MG/SENNA 8.6 MG TAB PO SCH (10:15)
[2017-07-05] MEDS: INSULIN DETEMIR 100 UNITS/ML VIAL SQ SCH (10:27)
--- NOTE | 2017-07-05 11:10 | HHI.PR ---
Subjective Remarks Deferred entry - patient seen on 07/04 at 9:00 am Denies cp/sob eating well afebrile wbc jumped up Objective Vitals Vital Signs Date Time Temp Pulse Resp B/P (MAP) Pulse Ox O2 Delivery O2 Flow Rate FiO2 07/05/17 07:45 97.4 81 16 107/64 (78) 99 07/05/17 06:00 78 07/05/17 05:00 84 07/05/17 04:00 98.4 89 14 96/63 (74) 98 07/05/17 04:00 82 07/05/17 03:00 88 07/05/17 02:00 84 07/05/17 01:00 86 07/05/17 00:00 Room Air 07/05/17 00:00 91 07/05/17 00:00 98.4 85 14 109/67 (81) 95 07/04/17 23:00 88 07/04/17 22:00 84 07/04/17 21:00 98 07/04/17 20:00 Room Air 07/04/17 20:00 98.4 88 14 88/53 (65) 97 07/04/17 20:00 83 07/04/17 15:43 97.6 76 18 92/55 (67) 07/04/17 15:10 Room Air 2.00 21 07/04/17 13:36 98.5 79 18 117/69 (85) I/O 07/04/17 07/04/17 07/04/17 07/05/17 07/05/17 07/05/17 07:00 15:00 23:00 07:00 15:00 23:00 Intake Total 240 ml 480 ml Balance 240 ml 480 ml Intake Oral 240 ml 480 ml # Voids 1 3 # Bowel Movements 1 1 Result Diagram: 07/04/17 0625 07/04/17 1039 Imaging Last Impressions Chest X-Ray 06/30/17 0400 Signed Impressions: Service Date/Time: Friday, June 30, 2017 04:16 - CONCLUSION: Persistent left lower lobe consolidation versus atelectasis and small left pleural effusion. Ki Vásquez MD Thoracentesis Ultrasound 06/29/17 0000 Signed Impressions: Service Date/Time: Thursday, June 29, 2017 12:49 - CONCLUSION: Uncomplicated ultrasound guided thoracentesis. Varun De Paz MD Carotid Artery Ultrasound 06/27/17 0000 Signed Impressions: Service Date/Time: Tuesday, June 27, 2017 17:16 - CONCLUSION: 1. Velocities are within normal range. However, elevated PSV ratio on the right could indicate a moderate stenosis. Channing Camara MD Chest CT 06/24/17 0000 Signed Impressions: Service Date/Time: Saturday, June 24, 2017 10:33 - CONCLUSION: 1. Acute, upper lobe predominant infiltrates, most likely infectious or inflammatory. A somewhat atypical distribution of pulmonary edema would also be conceivable. 2. Small to moderate right and moderate left pleural effusions have developed as well and with associated left greater than right basilar atelectasis. Ramon Gale MD Objective Remarks GENERAL: NAD, AAOx3 SKIN: Warm and dry. HEAD: Atraumatic. Normocephalic. EYES: Pupils equal and round. No scleral icterus. No injection or drainage. ENT: No nasal bleeding or discharge. Mucous membranes pink and moist. NECK: Trachea midline. No JVD. CARDIOVASCULAR: Regular rate and rhythm. 2/6 holosystolic murmur noted at the apex RESPIRATORY: No accessory muscle use, clear to auscultation bilaterally GASTROINTESTINAL: Abdomen soft, non-tender, nondistended. Hepatic and splenic margins not palpable. MUSCULOSKELETAL: Extremities without clubbing, cyanosis, or edema. RLE with AKA. Left radial no hematoma, neurovascularly intact distally NEUROLOGICAL: Awake and alert. No obvious cranial nerve deficits. Motor grossly within normal limits. Five out of 5 muscle strength in the arms and legs. Normal speech. PSYCHIATRIC: Appropriate mood and affect; insight and judgment normal. A/P Problem List: (1) DM (diabetes mellitus) ICD Code: E11.9 - Type 2 diabetes mellitus without complications Status: Chronic (2) Type 2 diabetes mellitus ICD Code: E11.9 - Type 2 diabetes mellitus Status: Chronic (3) Mitral regurgitation ICD Code: I34.0 - Nonrheumatic mitral (valve) insufficiency (4) PVD (peripheral vascular disease) ICD Code: I73.9 - Peripheral vascular disease, unspecified (5) Systolic CHF, acute ICD Code: I50.21 - Acute systolic (congestive) heart failure (6) Bacteremia due to Staphylococcus aureus ICD Code: R78.81 - Bacteremia (7) Hx of CABG ICD Code: Z95.1 - Presence of aortocoronary bypass graft (8) Status post above knee amputation of right lower extremity ICD Code: Z89.611 - Acquired absence of right leg above knee Status: Acute (9) Peripheral vascular disease ICD Code: I73.9 - Peripheral vascular disease Status: Chronic (10) Hyponatremia ICD Code: E87.1 - Hyponatremia Status: Acute (11) CAD (coronary artery disease) ICD Code: I25.10 - Atherosclerotic heart disease of [place] coronary artery without angina pectoris Status: Chronic Assessment and Plan 62-year-old male with respiratory failure secondary to COPD exacerbation and CHF /mitral valve regurgitation. Patient also has MSSA bacteremia. YURIY negative for vegetation. Respiratory failure secondary to CHF/MR/pleural effusion - RESOLVED - EF 35-40% with severe MR. - Heart catheterization showing stable CAD. 3 out of 4 grafts patent. - CT surgery consulted. Recommendation to optimize medical management and they will reassess in about 4 weeks. Patient currently has a high risk for mortality if he has surgery. Infection needs to be under control first. - Continue by mouth Lasix. Continue lisinopril and Coreg. - Patient underwent thoracentesis on 06/29/17 with removal of 650 miles of fluid improvement of symptoms. NSTEMI/CAD: - Heart catheterization shows stable coronary artery disease. Recommends continuing medical management. - cont plavix, asa, statin - Continue Coreg. COPD exacerbation: improved, on RA -Taper prednisone and DC on 07/03 - Continue breathing treatments and supplemental oxygen as needed. MSSA bacteremia: Source unclear. echo neg for vegetations. - Infectious disease following. Plan for 4 weeks of IV antibiotics with Cefazolin. Type 2 diabetes/hyperglycemia: - Uncontrolled. Secondary to steroids. -cont Levemir 5 units subcutaneous every 12 hours, wean steroids - Continue sliding scale insulin with Accu-Cheks Hypothyroid Cont levothyroxine 100 daily Pain Management: Cont Lyrica 100mg TID and Nortriptyline HS (home med) Tylenol 650mg q6 PRN pain. [place] when necessary PVD s/p right AKA - has prosthesis. cont med management. GERD/hx esophagitis had EGD 11/2016 and had ulcerative esophagitis- start protonix, tums prn. -hx hypothyroidism - TSH wnl. DVT GI prophylaxis - Teds SCDs - Subcutaneous heparin - Pepcid for GI prophylaxis Discharge Planning Dc pending Picc line placement. Problem Qualifiers (1) Mitral regurgitation: Qualified Codes: I34.0 - Nonrheumatic mitral (valve) insufficiency Jl Savage MD Jul 05, 2017 11:10
[2017-07-05] MEDS ORDERED: LISI-519 PO (11:15)
[2017-07-05] MEDS ORDERED: FURO40TA PO (11:15)
--- NOTE | 2017-07-05 11:21 | HHI.FF ---
Face to Face Verification Diagnosis: (1) Hx of CABG (2) Status post above knee amputation of right lower extremity (3) Hearing impaired (4) GERD (gastroesophageal reflux disease) (5) Hypothyroidism (6) NSTEMI (non-ST elevated myocardial infarction) (7) Pneumonia (8) Upper GI bleed (9) Severe sepsis (10) Vitamin B 12 deficiency Physical Therapy Order: Improve ambulation, Strength and gait training Home Health Nursing Order: Nursing assessment with vital signs IV medication administration Telehealth I have seen patient Ezio Aragon on 07/05/17. My clinical findings support the need for the requested home health care services because: Limited ability to care for self Need for psychosocial assistance High risk of falls Infection w/ risk of complications I certify that my clinical findings support that this patient is homebound because: Unsteady gait/balance Unsafe to leave home unassisted Unable to use public transportation Also Respiratory therapy Jl Savage MD Jul 05, 2017 11:21
--- NOTE | 2017-07-05 12:13 | PD.CARD.PN ---
Subjective Subjective Remarks No complaints Breathing much better, not on oxygen, up and walking with walker Objective Medications Current Medications Medications (Trade) Dose Ordered Sig/Nuzhat Route Start Time Stop Time Status Last Admin (Norvasc) 5 mg DAILY PO 06/21/17 09:00 07/05/17 10:14 (Ecotrin Ec) 81 mg DAILY PO 06/21/17 09:00 07/05/17 10:14 (Lipitor) 80 mg HS PO 06/20/17 21:00 07/04/17 21:52 (Coreg) 6.25 mg BID PO 06/20/17 21:00 07/05/17 10:14 (Plavix) 75 mg DAILY PO 06/21/17 09:00 Future hold 07/05/17 10:14 (Synthroid) 100 mcg DAILY@06 PO 06/21/17 06:00 07/05/17 04:54 (Pamelor) 75 mg HS PO 06/20/17 21:00 07/04/17 21:54 (Lyrica) 100 mg TID PO 06/21/17 09:00 07/05/17 10:15 (Vitamin B12) 1,000 mcg DAILY PO 06/21/17 09:00 07/05/17 10:13 (NS Flush) 2 ml UNSCH PRN IV FLUSH 06/20/17 19:00 07/04/17 02:22 (NS Flush) 2 ml BID IV FLUSH 06/20/17 21:00 07/05/17 09:00 (Tylenol) 650 mg Q6H PRN PO 06/20/17 19:00 06/23/17 17:51 (Zofran Inj) 4 mg Q6H PRN IV PUSH 06/20/17 19:00 (Duoneb Neb) 1 ampule Q2HR NEB PRN INH 06/20/17 19:00 06/28/17 16:57 Miscellaneous Information 1 Q361D XX 06/20/17 19:00 (Chlorhexidine 2% Cloth) Taper DAILY@04 TOP 06/21/17 04:00 06/17/18 03:59 06/27/17 01:00 (Chlorhexidine 2% Cloth) 3 pack UNSCH PRN TOP 06/20/17 19:00 (Afua-Colace) 1 tab BID PO 06/20/17 21:00 07/05/17 10:15 (Milk Of Magnesia Liq) 30 ml Q12H PRN PO 06/20/17 19:00 (Senokot) 17.2 mg Q12H PRN PO 06/20/17 19:00 (Dulcolax Supp) 10 mg DAILY PRN RECTAL 06/20/17 19:00 (Lactulose Liq) 30 ml DAILY PRN PO 06/20/17 19:00 ([place] 10-325 Mg) 1 tab Q6H PRN PO 06/21/17 12:15 07/05/17 10:14 (Xanax) 0.5 mg Q6H PRN PO 06/21/17 12:15 07/05/17 10:24 (Prinivil) 5 mg DAILY PO 06/24/17 09:00 07/05/17 10:15 (Heparin Inj) 5,000 units Q12HR SQ 06/26/17 16:00 07/05/17 10:13 Cefazolin Sodium/ Dextrose 50 ml @ 150 mls/hr Q8H IV 06/28/17 18:00 07/05/17 10:08 (D50w (Vial) Inj) 50 ml UNSCH PRN IV PUSH 07/01/17 10:15 (Glucagon Inj) 1 mg UNSCH PRN OTHER 07/01/17 10:15 (Lasix) 40 mg BID@09,18 PO 07/01/17 18:00 07/05/17 10:13 (KCl) 10 meq DAILY PO 07/02/17 09:00 07/05/17 10:13 (Protonix) 40 mg DAILY PO 07/03/17 09:00 07/05/17 10:13 (Tums Chew) 500 mg Q2H PRN CHEW 07/02/17 15:00 07/05/17 00:33 (NovoLOG SUPPLEMENTAL SCALE) 1 ACHS SLIDING SCALE SQ 07/03/17 17:00 07/04/17 17:45 (Levemir Inj) 10 units Q12HR SQ 07/03/17 21:00 07/05/17 10:27 (NovoLOG INJ) 5 units TIDAC SQ 07/03/17 17:00 Future Hold 07/04/17 17:45 Vital Signs / I&O Vital Signs Date Time Temp Pulse Resp B/P (MAP) Pulse Ox O2 Delivery O2 Flow Rate FiO2 12/21/17 11:27 16 07/05/17 11:26 16 07/05/17 07:45 97.4 81 16 107/64 (78) 99 07/05/17 06:00 78 07/05/17 05:00 84 07/05/17 04:00 98.4 89 14 96/63 (74) 98 07/05/17 04:00 82 07/05/17 03:00 88 07/05/17 02:00 84 07/05/17 01:00 86 07/05/17 00:00 Room Air 07/05/17 00:00 91 07/05/17 00:00 98.4 85 14 109/67 (81) 95 07/04/17 23:00 88 07/04/17 22:00 84 07/04/17 21:00 98 07/04/17 20:00 Room Air 07/04/17 20:00 98.4 88 14 88/53 (65) 97 07/04/17 20:00 83 07/04/17 15:43 97.6 76 18 92/55 (67) 07/04/17 15:10 Room Air 2.00 21 07/04/17 13:36 98.5 79 18 117/69 (85) I/O 07/04/17 07/04/17 07/04/17 07/05/17 07/05/17 07/05/17 07:00 15:00 23:00 07:00 15:00 23:00 Intake Total 240 ml 480 ml Balance 240 ml 480 ml Intake Oral 240 ml 480 ml # Voids 1 3 # Bowel Movements 1 1 Physical Exam GENERAL: NAD, AAOx3 SKIN: Warm and dry. HEAD: Atraumatic. Normocephalic. EYES: Pupils equal and round. No scleral icterus. No injection or drainage. ENT: No nasal bleeding or discharge. Mucous membranes pink and moist. NECK: Trachea midline. No JVD. CARDIOVASCULAR: Regular rate and rhythm. 2/6 holosystolic murmur noted at the apex RESPIRATORY: No accessory muscle use, clear to auscultation bilaterally GASTROINTESTINAL: Abdomen soft, non-tender, nondistended. Hepatic and splenic margins not palpable. MUSCULOSKELETAL: Extremities without clubbing, cyanosis, or edema. RLE with AKA. Left radial no hematoma, neurovascularly intact distally NEUROLOGICAL: Awake and alert. No obvious cranial nerve deficits. Motor grossly within normal limits. Five out of 5 muscle strength in the arms and legs. Normal speech. PSYCHIATRIC: Appropriate mood and affect; insight and judgment normal. Assessment and Plan Problem List: (1) Mitral regurgitation ICD Codes: I34.0 - Nonrheumatic mitral (valve) insufficiency (2) NSTEMI (non-ST elevated myocardial infarction) ICD Codes: I21.4 - Non-ST elevation (NSTEMI) myocardial infarction Status: Acute (3) Hx of CABG ICD Codes: Z95.1 - Presence of aortocoronary bypass graft (4) Anemia ICD Codes: D64.9 - Anemia, unspecified (5) DM (6) PVD (peripheral vascular disease) ICD Codes: I73.9 - Peripheral vascular disease, unspecified (7) Shortness of breath ICD Codes: R06.02 - Shortness of breath Status: Acute (8) Tobacco abuse ICD Codes: Z72.0 - Tobacco abuse Status: Chronic Assessment and Plan 1) EF 35-40% with severe MR Huge change compared to previous Diagnostic cardiac catheterization showing no change in CAD, 3/4 grafts patent as before YURIY showing severe MR, appears to have tethering of the posterior leaflet Discussed with CT surgery and ID 2) SOB due to CHF from MR 3) Attempt to diuresis as possible 4) Bacteremia 4/4 bottles positive (possible contaminant) ID following Further cultures so far negative YURIY negative for vegetation 5) Pleural effusion Thoracentesis done on the right, small pleural on the left 6) Plavix restarted 7) Plan for discharge if possible with anti-biotics and follow up with CT surgery in 4 weeks for reconsideration of surgery Discussed with primary team, plan discharge today Problem Qualifiers (1) Mitral regurgitation: Qualified Codes: I34.0 - Nonrheumatic mitral (valve) insufficiency Anupam Richter DO Jul 05, 2017 12:13
[2017-07-05 13:03] LABS: AUTOMATED NEUTROPHIL # 14.2 TH/MM3 (1.8-7.7); BASOPHIL # 0.1 TH/MM3 (0-0.2); BASOPHIL % 0.7 % (0.0-2.0); EOSINOPHIL # 0.3 TH/MM3 (0-0.4); EOSINOPHIL % 1.8 % (0.0-4.0); HEMATOCRIT 30.5 % (39.0-51.0); HEMO FLAGS DIFF FINAL; LYMPHOCYTE # 2.8 TH/MM3 (1.0-4.8); MEAN CELL VOLUME 82.8 FL (80.0-100.0); MEAN CORPUSCULAR HEMOGLOBIN 26.3 PG (27.0-34.0); MEAN CORPUSCULAR HGB CONC 31.7 % (32.0-36.0); MONO % 6.9 % (0.0-8.0); NEUT % 75.6 % (16.0-70.0); PLATELET COUNT 207 TH/MM3 (150-450); RED BLOOD COUNT 3.69 MIL/MM3 (4.50-5.90); RED CELL DISTRIBUTION WIDTH 17.6 % (11.6-17.2); WHITE BLOOD COUNT 18.8 TH/MM3 (4.0-11.0)
--- NOTE | 2017-07-05 13:08 | RADRPT ---
EXAM DATE/TIME: 07/05/2017 12:23 [facility] COMPARISON: CHEST SINGLE AP, June 30, 2017, 4:16. INDICATIONS : Evaluate lung status. Patient being discharged with a mid line. MEDICAL HISTORY : Hypercholesterolemia. PVD. MA. Thyroid disease. [id number]. Hypoglycemia. Seizres. Numbness. CAD. Hy perlipidemia. HTN. GERD. Arthritis. Diabetic. Hydrocele. SURGICAL HISTORY : Tonsillectomy. Angioplasty. Appendectomy. CABG. Lumbar fusion. Esophageal stricture. Exploratory left brachial plexis. Colectomy. Left shoulder surgery. Right knee and ankle surgery. Right AKA. ENCOUNTER: Subsequent ACUITY: 1 day PAIN SCORE: 0/10 LOCATION: Bilateral chest FINDINGS: A single view of the chest demonstrates the lungs to be symmetrically aerated without evidence of mas s, infiltrate or effusion. Heart size upper limits normal. Postoperative CABG. CONCLUSION: 1. Postop CABG. Minimal basal atelectasis. No effusion. Channing Camara MD on July 05, 2017 at 13:05 Board Certified Radiologist. This report was verified electronically.
[2017-07-05 13:38] LABS: ALKALINE PHOSPHATASE 122 U/L (45-117); ALT (GPT) LESS THAN 6 U/L (12-78); ANION GAP 5 MEQ/L (5-15); AST (GOT) 12 U/L (15-37); BICARBONATE 32.2 MEQ/L (21.0-32.0); BLOOD UREA NITROGEN 33 MG/DL (7-18); CHLORIDE 95 MEQ/L (98-107); GLOMERULAR FILTRATION RATE 70 ML/MIN (>89); MAGNESIUM 1.8 MG/DL (1.5-2.5); POTASSIUM 4.4 MEQ/L (3.5-5.1); SODIUM (NA) 132 MEQ/L (136-145); TOTAL BILIRUBIN ADULT 0.2 MG/DL (0.2-1.0)
--- NOTE | 2017-07-05 15:21 | HHI.DS ---
Discharge Summary Admission Date Jun 20, 2017 at 17:28 Admitting Diagnosis acute respiratory distress (1) DM (diabetes mellitus) ICD Code: E11.9 - Type 2 diabetes mellitus without complications Status: Chronic (2) Type 2 diabetes mellitus ICD Code: E11.9 - Type 2 diabetes mellitus Status: Chronic (3) Mitral regurgitation ICD Code: I34.0 - Nonrheumatic mitral (valve) insufficiency (4) PVD (peripheral vascular disease) ICD Code: I73.9 - Peripheral vascular disease, unspecified (5) Systolic CHF, acute ICD Code: I50.21 - Acute systolic (congestive) heart failure (6) Bacteremia due to Staphylococcus aureus ICD Code: R78.81 - Bacteremia (7) Hx of CABG ICD Code: Z95.1 - Presence of aortocoronary bypass graft (8) Status post above knee amputation of right lower extremity ICD Code: Z89.611 - Acquired absence of right leg above knee Status: Acute (9) Peripheral vascular disease ICD Code: I73.9 - Peripheral vascular disease Status: Chronic (10) Hyponatremia ICD Code: E87.1 - Hyponatremia Status: Acute (11) CAD (coronary artery disease) ICD Code: I25.10 - Atherosclerotic heart disease of [place] coronary artery without angina pectoris Status: Chronic Brief History - From Admission 62-year-old male with PMH of DM, lifelong smoker presents via EMS for evaluation of respiratory distress. Per EMS the patient's O2 sats was in the 70s on arrival. He received 250 of Solu-Medrol and 2 albuterol treatments en route. Upon arrival to emergency department the CPAP was applied with some improvement. On my evaluation patient is in moderate respiratory distress on facemask nonrebreather. He states his cough is nonproductive. He is unable to provide much other history due to respiratory distress.. CBC/BMP: 07/05/17 1230 07/05/17 1230 Significant Findings Laboratory Tests Test 07/03/17 16:00 07/04/17 06:25 07/04/17 10:39 07/05/17 12:30 Blood Urea Nitrogen 26 MG/DL (7-18) 32 MG/DL (7-18) 33 MG/DL (7-18) Random Glucose 254 MG/DL (74-106) 341 MG/DL (74-106) 211 MG/DL (74-106) Calcium Level 8.0 MG/DL (8.5-10.1) 8.1 MG/DL (8.5-10.1) 8.2 MG/DL (8.5-10.1) Sodium Level 131 MEQ/L (136-145) 130 MEQ/L (136-145) 132 MEQ/L (136-145) Chloride Level 93 MEQ/L (98-107) 90 MEQ/L (98-107) 95 MEQ/L (98-107) Carbon Dioxide Level 32.5 MEQ/L (21.0-32.0) 33.0 MEQ/L (21.0-32.0) 32.2 MEQ/L (21.0-32.0) Estimat Glomerular Filtration Rate 71 ML/MIN (>89) 65 ML/MIN (>89) 70 ML/MIN (>89) White Blood Count 18.8 TH/MM3 (4.0-11.0) 18.8 TH/MM3 (4.0-11.0) Red Blood Count 4.00 MIL/MM3 (4.50-5.90) 3.69 MIL/MM3 (4.50-5.90) Hemoglobin 10.8 GM/DL (13.0-17.0) 9.7 GM/DL (13.0-17.0) Hematocrit 33.0 % (39.0-51.0) 30.5 % (39.0-51.0) Mean Corpuscular Hemoglobin 26.9 PG (27.0-34.0) 26.3 PG (27.0-34.0) Mean Corpuscular Hemoglobin Concent 31.7 % (32.0-36.0) Red Cell Distribution Width 17.6 % (11.6-17.2) Neutrophils (%) (Auto) 75.6 % (16.0-70.0) Neutrophils # (Auto) 14.2 TH/MM3 (1.8-7.7) Monocytes # (Auto) 1.3 TH/MM3 (0-0.9) Total Protein 5.7 GM/DL (6.4-8.2) Albumin 2.4 GM/DL (3.4-5.0) Alkaline Phosphatase 122 U/L (45-117) Aspartate Amino Transf (AST/SGOT) 12 U/L (15-37) Alanine Aminotransferase (ALT/SGPT) LESS THAN 6 U/L (12-78) PE at Discharge GENERAL: NAD, AAOx3 SKIN: Warm and dry. HEAD: Atraumatic. Normocephalic. EYES: Pupils equal and round. No scleral icterus. No injection or drainage. ENT: No nasal bleeding or discharge. Mucous membranes pink and moist. NECK: Trachea midline. No JVD. CARDIOVASCULAR: Regular rate and rhythm. 2/6 holosystolic murmur noted at the apex RESPIRATORY: No accessory muscle use, clear to auscultation bilaterally GASTROINTESTINAL: Abdomen soft, non-tender, nondistended. Hepatic and splenic margins not palpable. MUSCULOSKELETAL: Extremities without clubbing, cyanosis, or edema. RLE with AKA. Left radial no hematoma, neurovascularly intact distally NEUROLOGICAL: Awake and alert. No obvious cranial nerve deficits. Motor grossly within normal limits. Five out of 5 muscle strength in the arms and legs. Normal speech. PSYCHIATRIC: Appropriate mood and affect; insight and judgment normal. Pt Condition on Discharge: Stable Discharge Disposition: Disch w/ Home Health Serv Discharge Instructions DIET: Follow Instructions for: Heart Healthy Diet Activities you can perform: Regular-No Restrictions, See Additionl Instruction Other Activity Instructions: as per PT instructions. Out of bed with assistance. Jl Savage MD Jul 05, 2017 15:21
== END 2017-07-05 16:23 | disposition home health service (06) | DRG 280 ==
LOC: NEPE 14:25 → NEDA 17:28 → HIME 21:30 → N03B 06-28 01:10 → HCIN 06-30 05:12 → HCIS 07-02 08:50
PROVIDERS: ADMIT Hospitalist; ATTEND Hospitalist
PROC: 5A09457 Assistance with Respiratory Ventilation, 24-96 Consecutive Hours, Continuous Positive Airway Pressure (ICD-10-PCS; principal; 2017-06-20)
PROC: 4A023N7 Measurement of Cardiac Sampling and Pressure, Left Heart, Percutaneous Approach (ICD-10-PCS; 2017-06-25)
PROC: B2111ZZ Fluoroscopy of Multiple Coronary Arteries using Low Osmolar Contrast (ICD-10-PCS; 2017-06-25)
PROC: B2181ZZ Fluoroscopy of Left Internal Mammary Bypass Graft using Low Osmolar Contrast (ICD-10-PCS; 2017-06-25)
PROC: B2131ZZ Fluoroscopy of Multiple Coronary Artery Bypass Grafts using Low Osmolar Contrast (ICD-10-PCS; 2017-06-25)
PROC: B246ZZ4 Ultrasonography of Right and Left Heart, Transesophageal (ICD-10-PCS; 2017-06-27)
DX: I21.4 Non-ST elevation (NSTEMI) myocardial infarction (principal); I50.21 Acute systolic (congestive) heart failure; E87.2 Acidosis; I42.9 Cardiomyopathy, unspecified; J44.1 Chronic obstructive pulmonary disease with (acute) exacerbation; J98.11 Atelectasis; E87.1 Hypo-osmolality and hyponatremia; I25.10 Atherosclerotic heart disease of native coronary artery without angina pectoris; R06.03 Acute respiratory distress; E11.41 Type 2 diabetes mellitus with diabetic mononeuropathy; I08.1 Rheumatic disorders of both mitral and tricuspid valves; E11.51 Type 2 diabetes mellitus with diabetic peripheral angiopathy without gangrene; Z89.611 Acquired absence of right leg above knee; E11.65 Type 2 diabetes mellitus with hyperglycemia; F32.9 Major depressive disorder, single episode, unspecified; D64.9 Anemia, unspecified; I44.7 Left bundle-branch block, unspecified; F17.210 Nicotine dependence, cigarettes, uncomplicated; Z95.1 Presence of aortocoronary bypass graft; Z91.19 Patient's noncompliance with other medical treatment and regimen; Z79.01 Long term (current) use of anticoagulants; M19.90 Unspecified osteoarthritis, unspecified site; F41.9 Anxiety disorder, unspecified; H91.90 Unspecified hearing loss, unspecified ear; I11.0 Hypertensive heart disease with heart failure; K21.9 Gastro-esophageal reflux disease without esophagitis; E78.5 Hyperlipidemia, unspecified; G89.4 Chronic pain syndrome; I25.2 Old myocardial infarction; E03.9 Hypothyroidism, unspecified; I44.0 Atrioventricular block, first degree; Z87.19 Personal history of other diseases of the digestive system; Z79.4 Long term (current) use of insulin
CPT/HCPCS: 32555; 36569; 36600; 71010; 71250; 76937; 80048; 80053; 81001; 82550; 82805; 82945; 82947; 82948; 83605; 83615; 83735; 83880; 83986; 84100; 84155; 84157; 84443; 84484; 85025; 85027; 85610; 85730; 86403; 87040; 87070; 87147; 87186; 87205; 87449; 87641; 89051; 93005; 93308; 93312; 93320; 93325; 93459; 93880; 94002; 94003; 94010; 94150; 94640; 94664; C1729; C1769; C1893; J0456; J0690; J0692; J0696; J1644; J1815; J1817; J1940; J2700; J2920; J3370; J7030; J7040; J7050; J7512; Q9967

== ENCOUNTER → 2017-07-11 | Outpatient (CLI) | payer OTHER, MEDICAID ==
[~2017-07-11] MED LIST changes: +CEFA2SOL IV; +EPIN1INJ21 IV PUSH; +EPIN1INJ21 SQ; +FURO40TA PO; -HYDR25TA5 PO; -INSU1INJ5 SQ; +LISI-519 PO; -LISI10TA3 PO; +SOLU250I IV PUSH
[2017-07-11 12:34] LABS: AUTOMATED NEUTROPHIL # 7.3 TH/MM3 (1.8-7.7); BASOPHIL # 0.1 TH/MM3 (0-0.2); BASOPHIL % 0.5 % (0.0-2.0); EOSINOPHIL # 0.2 TH/MM3 (0-0.4); EOSINOPHIL % 2.4 % (0.0-4.0); HEMATOCRIT 24.1 % (39.0-51.0); HEMOGLOBIN 7.9 GM/DL (13.0-17.0); LYMPH % 17.7 % (9.0-44.0); LYMPHOCYTE # 1.7 TH/MM3 (1.0-4.8); MEAN CELL VOLUME 82.8 FL (80.0-100.0); MEAN CORPUSCULAR HEMOGLOBIN 27.1 PG (27.0-34.0); MEAN CORPUSCULAR HGB CONC 32.7 % (32.0-36.0); MONO % 5.4 % (0.0-8.0); MONOCYTE # 0.5 TH/MM3 (0-0.9); PLATELET COUNT 204 TH/MM3 (150-450); RED BLOOD COUNT 2.91 MIL/MM3 (4.50-5.90); RED CELL DISTRIBUTION WIDTH 17.9 % (11.6-17.2); WHITE BLOOD COUNT 9.9 TH/MM3 (4.0-11.0)
[2017-07-11 12:49] LABS: CREATININE 0.96 MG/DL (0.60-1.30)
== END ==
LOC: CLAB 11:24
PROVIDERS: ATTEND Internal Medicine Infectious Disease
DX: I21.4 Non-ST elevation (NSTEMI) myocardial infarction (principal); I50.21 Acute systolic (congestive) heart failure
CPT/HCPCS: 36415; 82565; 85025

== ENCOUNTER 2017-08-02 08:53 | Inpatient (IN) | payer MEDICAID, OTHER ==
[2017-08-02] VITALS (16 sets, daily range): BP systolic 92–176; BP diastolic 55–83; PULSE 76–113; RESP 18–25; TEMP 97.3–98.1; O2SAT 92–100
[~2017-08-02] VITALS: Ht 182.9 cm; Wt 69.0 kg
[2017-08-02] MEDS ORDERED: SODIUM CHLORIDE 0.9% FLUSH 10 ML FLUSH IVF PRN (09:00)
--- NOTE | 2017-08-02 09:04 | PD ---
HPI Chief Complaint: Respiratory Distress Time Seen by Provider: 08:55 Travel History International Travel<30 days: No Contact w/Intl Traveler<30days: No Traveled to known affect area: No History of Present Illness HPI 18-year-old male patient with history of COPD, [place], multiple multiple medical issues, presents to the ER today brought in by EMS for shortness of breath in wheezing that started as who his getting into his car this morning. He has coughing again in respiratory distress. EMS had gone Solu-Medrol added a nebulizer on him without significant relief. He denies any chest pains, or other issues at this time. Modifying Factors: None Associated Signs & Symptoms: Coughing, wheezing, shortness of breath Risk Factors: COPD history PFSH Past Medical History Hx Anticoagulant Therapy: Yes Arthritis: Yes Asthma: No Autoimmune Disease: No Blood Disorders: No Anxiety: Yes Depression: Yes Heart Rhythm Problems: No Cancer: No Cardiovascular Problems: Yes High Cholesterol: Yes Chemotherapy: No Chest Pain: No Congestive Heart Failure: No COPD: No Cerebrovascular Accident: No Coronary Artery Disease: Yes Diabetes: Yes Diminished Hearing: Yes ([place]) Endocrine: Yes Gastrointestinal Disorders: Yes (ESOPHAGEAL ULCER? stricture, stretch) GERD: Yes Glaucoma: No Genitourinary: No Headaches: No Hepatitis: No Hiatal Hernia: No Hypertension: Yes Immune Disorder: No Implanted Vascular Access Dvce: Yes Kidney Stones: No Musculoskeletal: Yes (cervical and lumbar spine pt states he has bulging disc R AKA) Neurologic: Yes (NEUROPATHY pvd) Psychiatric: No Reproductive: No Respiratory: Yes Immunizations Current: No Migraines: No Myocardial Infarction: Yes Radiation Therapy: No Renal Failure: No Seizures: Yes Sickle Cell Disease: No Sleep Apnea: No Thyroid Disease: Yes Ulcer: No PNEUMOCCOCAL Vaccine (Year): 2 Past Surgical History Abdominal Surgery: Yes (EXP. LEFT BRACHIAL PLEXIS,APPEND., COLECTOMY) AICD: No Appendectomy: Yes Arteriovenous Shunt: No Body Medical Devices: Right leg amputaion wears prosthesis Cardiac Surgery: Yes (CABGX4) Cholecystectomy: No Coronary Artery Bypass Graft: Yes (2004) Ear Surgery: No Endocrine Surgery: No Eye Surgery: No Genitourinary Surgery: No Gynecologic Surgery: No Insulin Pump: No Joint Replacement: No Neurologic Surgery: No Oral Surgery: No Pacemaker: No Thoracic Surgery: Yes (L5, S1, fusions) Tonsillectomy: Yes Other Surgery: Yes (2 HYDROCELE) Social History Alcohol Use: No Tobacco Use: Yes (6-7 CIGARETTES/DAY) Substance Use: No Allergies-Medications (Allergen,Severity, Reaction): Coded Allergies: No Known Allergies (Unverified , 08/02/17) Reported Meds & Prescriptions Reported Meds & Active Scripts Active Furosemide 40 Mg Tab 40 Mg PO DAILY Lisinopril 5 Mg Tab 5 Mg PO DAILY Epinephrine Inj 1 Mg/Ml (1 Ml) Inj 0.3 Mg SQ ONCE PRN Give with any signs of respiratory distress. Epinephrine Inj 1 Mg/Ml (1 Ml) Inj 0.3 Mg IV PUSH ONCE PRN Solu-Cortef Inj (Hydrocortisone Sodium Succinate) 250 Mg/2 Ml Inj 250 Mg IV PUSH ONCE PRN Give over 30-60 seconds. Cefazolin Inj (Cefazolin Sodium/Dextrose) 2 Gm/50 Ml Bagp 2 Gm IV Q8H 15 Days [place] (Hydrocodone-Acetaminophen) 10-325 Mg Tab 1 Tab PO Q6HR 7 Days Levemir Inj (Insulin Detemir) 1,000 unit/ 10 ML Vial 8 Units SQ BID 30 Days Do not mix with any other Insulin. Novolog Inj (Insulin Aspart) 1,000 Unit/10 Ml Vial 1-9 Units SQ ACHS sugars less than 70,(0)units; sugars 150-199,(1) unit; sugars 200-249,(3) units; sugars 250-299,(5) units; sugars 300-349,(7) units; sugars greater than 349,(9) units. inform PCP if < 70 or > 400. Atorvastatin (Atorvastatin Calcium) 80 Mg Tab 80 Mg PO HS 30 Days Prilosec (Omeprazole Magnesium) 20 Mg Tab 1 Tab PO BID Lyrica (Pregabalin) 100 Mg Cap 100 Mg PO TID Adult Aspirin EC Low Strength (Aspirin) 81 Mg Tabec 81 Mg PO DAILY 30 Days Norvasc (Amlodipine Besylate) 5 Mg Tab 5 Mg PO DAILY Nortriptyline (Nortriptyline HCl) 75 Mg Cap 75 Mg PO HS Plavix (Clopidogrel Bisulfate) 75 Mg Tab 75 Mg PO DAILY Synthroid (Levothyroxine Sodium) 100 Mcg Tab 100 Mcg PO DAILY@06 Carvedilol 6.25 Mg Tab 6.25 Mg PO BID Reported B12 (Cyanocobalamin) 1,000 Mcg Tab 1,000 Mcg PO DAILY Review of Systems Except as stated in HPI: all other systems reviewed are Neg Physical Exam Narrative GENERAL: Well-developed elderly thin male patient currently in moderate respiratory distress. Awake oriented 3. On nonrebreather, talking 1 word sentences. SKIN: Focused skin assessment warm/dry. HEAD: Atraumatic. Normocephalic. EYES: Pupils equal and round. No scleral icterus. No injection or drainage. ENT: No nasal bleeding or discharge. Mucous membranes pink and moist. NECK: Trachea midline. No JVD. Supple. CARDIOVASCULAR: Fast rate and regular rhythm. No murmur appreciated. RESPIRATORY: Moderate accessory muscle use. Wheezing throughout n. Breath sounds equal bilaterally. GASTROINTESTINAL: Abdomen soft, non-tender, nondistended. Hepatic and splenic margins not palpable. MUSCULOSKELETAL: No obvious deformities. No clubbing. No cyanosis. No edema. NEUROLOGICAL: Awake and alert. No obvious cranial nerve deficits. Motor grossly within normal limits. Normal speech. PSYCHIATRIC: Appropriate mood and affect; insight and judgment normal. Data Data Last Documented VS Vital Signs Date Time Temp Pulse Resp B/P (MAP) Pulse Ox O2 Delivery O2 Flow Rate FiO2 08/02/17 09:18 100 70 08/02/17 08:59 98.1 113 176/75 (108) Nasal Cannula 6.00 Orders Orders Complete Blood Count With Diff (08/02/17 08:55) Comprehensive Metabolic Panel (08/02/17 08:55) Arterial Blood Gas (Abg) (08/02/17 08:55) Iv Access Insert/Monitor (08/02/17 08:55) Electrocardiogram (08/02/17 08:55) Ecg Monitoring (08/02/17 08:55) Oximetry (08/02/17 08:55) Oxygen Administration (08/02/17 08:55) Chest, Single Ap (08/02/17 08:55) Sodium Chloride 0.9% Flush (Ns Flush) (08/02/17 09:00) Albuterol-Ipratropium Neb (Duoneb Neb) (08/02/17 09:00) Blood Culture (08/02/17 09:36) Ceftriaxone Inj (Rocephin Inj) (08/02/17 09:36) Azithromycin Inj (Zithromax Inj) (08/02/17 09:36) Acetamin-Hydrocod 325-5 Mg ([place] 5-325 (08/02/17 10:15) Sodium Chlorid 0.9% 500 Ml Inj (Ns 500 M (08/02/17 10:15) Piperacil-Tazo 4.5 Gm Premix (Zosyn 4.5 (08/02/17 10:30) Azithromycin Inj (Zithromax Inj) (08/02/17 10:30) Methylprednisolone So Succ Inj (Solumedr (08/02/17 14:00) Admit Order (Ed Use Only) (08/02/17 10:20) Sodium Chlor 0.9% 1000 Ml Inj (Ns 1000 M (08/02/17 10:30) Lactic Acid Sepsis Protocol (08/02/17 10:20) Aspirin Ec (Ecotrin Ec) (08/03/17 09:00) Atorvastatin (Lipitor) (08/02/17 21:00) Carvedilol (Coreg) (08/02/17 21:00) Clopidogrel (Plavix) (08/03/17 09:00) Acetamin-Hydrocod 325-10 Mg ([place] 10-32 (08/02/17 12:00) Insulin Detemir Inj (Levemir Inj) (08/02/17 21:00) Levothyroxine (Synthroid) (08/03/17 06:00) Lisinopril (Prinivil) (08/03/17 09:00) Nortriptyline (Pamelor) (08/02/17 21:00) Pregabalin (Lyrica) (08/02/17 13:00) (Nf) Cyanocobalamin (B12) (08/03/17 09:00) Labs Laboratory Tests Test 08/02/17 09:11 08/02/17 09:22 White Blood Count 18.7 TH/MM3 Red Blood Count 4.67 MIL/MM3 Hemoglobin 11.9 GM/DL Hematocrit 39.9 % Mean Corpuscular Volume 85.6 FL Mean Corpuscular Hemoglobin 25.6 PG Mean Corpuscular Hemoglobin Concent 29.9 % Red Cell Distribution Width 19.8 % Platelet Count 414 TH/MM3 Mean Platelet Volume 9.8 FL Neutrophils (%) (Auto) 68.8 % Lymphocytes (%) (Auto) 22.9 % Monocytes (%) (Auto) 5.0 % Eosinophils (%) (Auto) 2.0 % Basophils (%) (Auto) 1.3 % Neutrophils # (Auto) 12.9 TH/MM3 Lymphocytes # (Auto) 4.3 TH/MM3 Monocytes # (Auto) 0.9 TH/MM3 Eosinophils # (Auto) 0.4 TH/MM3 Basophils # (Auto) 0.2 TH/MM3 CBC Comment DIFF FINAL Differential Comment Blood Urea Nitrogen 22 MG/DL Creatinine 1.33 MG/DL Random Glucose 492 MG/DL Total Protein 6.7 GM/DL Albumin 2.9 GM/DL Calcium Level 7.9 MG/DL Alkaline Phosphatase 157 U/L Aspartate Amino Transf (AST/SGOT) 17 U/L Alanine Aminotransferase (ALT/SGPT) 13 U/L Total Bilirubin 0.2 MG/DL Sodium Level 131 MEQ/L Potassium Level 4.4 MEQ/L Chloride Level 98 MEQ/L Carbon Dioxide Level 18.7 MEQ/L Anion Gap 14 MEQ/L Estimat Glomerular Filtration Rate 55 ML/MIN Blood Gas Puncture Site LT RADIAL Blood Gas Patient Temperature 98.6 Blood Gas HCO3 19 mmol/L Blood Gas Base Excess -6.1 mmol/L Blood Gas Oxygen Saturation 94 % Arterial Blood pH 7.33 Arterial Blood Partial Pressure CO2 37 mmHg Arterial Blood Partial Pressure O2 97 mmHG Arterial Blood Oxygen Content 14.4 Vol % Arterial Blood Carboxyhemoglobin 3.0 % Arterial Blood Methemoglobin 0.4 % Blood Gas Hemoglobin 10.8 G/DL Oxygen Delivery Device BIPAP Blood Gas Ventilator Setting IPAP15/[id number] Blood Gas Inspired Oxygen 70 % [facility] Medical Decision Making Medical Screen Exam Complete: Yes Emergency Medical Condition: Yes Medical Record Reviewed: Yes Interpretation(s) EKG shows sinus rhythm at a rate of 90 bpm with a left bundle branch block pattern. Laboratory Tests Test 08/02/17 09:11 08/02/17 09:22 White Blood Count 18.7 TH/MM3 (4.0-11.0) Hemoglobin 11.9 GM/DL (13.0-17.0) Mean Corpuscular Hemoglobin 25.6 PG (27.0-34.0) Mean Corpuscular Hemoglobin Concent 29.9 % (32.0-36.0) Red Cell Distribution Width 19.8 % (11.6-17.2) Neutrophils # (Auto) 12.9 TH/MM3 (1.8-7.7) Blood Urea Nitrogen 22 MG/DL (7-18) Creatinine 1.33 MG/DL (0.60-1.30) Random Glucose 492 MG/DL (74-106) Albumin 2.9 GM/DL (3.4-5.0) Calcium Level 7.9 MG/DL (8.5-10.1) Alkaline Phosphatase 157 U/L (45-117) Sodium Level 131 MEQ/L (136-145) Carbon Dioxide Level 18.7 MEQ/L (21.0-32.0) Estimat Glomerular Filtration Rate 55 ML/MIN (>89) Blood Gas HCO3 19 mmol/L (22-26) Blood Gas Base Excess -6.1 mmol/L (-2-2) Arterial Blood pH 7.33 (7.380-7.420) Arterial Blood Partial Pressure CO2 37 mmHg (38-42) Blood Gas Hemoglobin 10.8 G/DL (12.0-16.0) Last 24 hours Impressions Chest X-Ray 08/02/17 0811 Signed Impressions: Service Date/Time: July 09:08 - CONCLUSION: Diffuse interstitial lung disease with a superimposed infiltrate in right lower lobe new since June. Bautista Arriola MD Differential Diagnosis Shortness of breath, wheezing: COPD exacerbation versus pneumonia versus CHF Narrative Course Patient was not started on nebulizers in the ER and BiPAP with initiated with improvement in symptoms. Chest x-ray shows a right lower lobe pneumonia an chronic interstitial changes bilaterally. IV antibiotics were initiated after cultures were done. At this point, cases discussed with creasing machine operator Dr. Navarro for admission for pneumonia and COPD exacerbation. Additional IV fluids in lactate with also ordered. Aggregate critical care time was25 minutes. Time to perform other separately billable procedures was not included in the critical care time. My time did not include minutes spent treating any other patients simultaneously or on activities that did not directly contribute to the patient's treatment. The services I provided to this patient were to treat and/or prevent clinically significant deterioration that could result in: Worsening respiratory distress, respiratory failure, I provided critical care services requiring my management, as noted below: Chart data review, documentation time, medication orders and management, vital sign assessments/reviewing monitor data, ordering and reviewing lab tests, ordering and interpreting/reviewing x-rays and diagnostic studies, care of the patient and discussion of the patient with the admitting physicians. Diagnosis Primary Impression: Pneumonia Additional Impression: Sepsis Admitting Information Admitting Physician Requests: Admit Yonis Buckley MD Aug 02, 2017 09:04
[2017-08-02] MEDS: RESP: ALBUTEROL 2.5 MG/IPRATROPIUM 0.5 MG NEB (SCH) INH (09:17)
--- NOTE | 2017-08-02 09:29 | RADRPT ---
EXAM DATE/TIME: 08/02/2017 09:08 [facility] COMPARISON: CHEST SINGLE AP, July 05, 2017, 12:23. INDICATIONS : Shortness of breath today. MEDICAL HISTORY : Hypertension. Diabetes mellitus type II. Myocardial infarction. Peripheral vascular disease. [place] nary artery disease. SURGICAL HISTORY : CABG. ENCOUNTER: Initial ACUITY: 1 day PAIN SCORE: 0/10 LOCATION: Bilateral chest FINDINGS: A single view of the chest demonstrates diffuse bilateral interstitial lung disease with an infiltrat e the right lung base. There are 4 intact sternal wires. No visible pneumothorax. The cardiomediasti nal contours are unremarkable. Osseous structures are intact. CONCLUSION: Diffuse interstitial lung disease with a superimposed infiltrate in right lower lobe new since [facility] er. Bautista Arriola MD on August 02, 2017 at 9:26 Board Certified Radiologist. This report was verified electronically.
[2017-08-02] MEDS ORDERED: cefTRIAXone INJ 2,000 MG in SODIUM CHLORIDE 0.9% INJ 100 ML IV STA (09:36)
[2017-08-02] MEDS ORDERED: AZITHROMYCIN INJ 500 MG in SODIUM CHLOR 0.9% 250 ML INJ 250 ML IV STA (09:36)
[2017-08-02 09:43] LABS: AUTOMATED NEUTROPHIL # 12.9 TH/MM3 (1.8-7.7); BASOPHIL # 0.2 TH/MM3 (0-0.2); BASOPHIL % 1.3 % (0.0-2.0); EOSINOPHIL # 0.4 TH/MM3 (0-0.4); HEMATOCRIT 39.9 % (39.0-51.0); HEMOGLOBIN 11.9 GM/DL (13.0-17.0); LYMPH % 22.9 % (9.0-44.0); LYMPHOCYTE # 4.3 TH/MM3 (1.0-4.8); MEAN CELL VOLUME 85.6 FL (80.0-100.0); MEAN CORPUSCULAR HEMOGLOBIN 25.6 PG (27.0-34.0); MEAN PLATELET VOLUME 9.8 FL (7.0-11.0); MONOCYTE # 0.9 TH/MM3 (0-0.9); NEUT % 68.8 % (16.0-70.0); PLATELET COUNT 414 TH/MM3 (150-450); RED BLOOD COUNT 4.67 MIL/MM3 (4.50-5.90); RED CELL DISTRIBUTION WIDTH 19.8 % (11.6-17.2); WHITE BLOOD COUNT 18.7 TH/MM3 (4.0-11.0)
[2017-08-02 09:46] LABS: MEAN CORPUSCULAR HGB CONC 29.9 % (32.0-36.0)
[2017-08-02 09:56] LABS: ALBUMIN 2.9 GM/DL (3.4-5.0); ALKALINE PHOSPHATASE 157 U/L (45-117); ALT (GPT) 13 U/L (12-78); AST (GOT) 17 U/L (15-37); BICARBONATE 18.7 MEQ/L (21.0-32.0); BLOOD UREA NITROGEN 22 MG/DL (7-18); CALCIUM 7.9 MG/DL (8.5-10.1); CHLORIDE 98 MEQ/L (98-107); CREATININE 1.33 MG/DL (0.60-1.30); GLOMERULAR FILTRATION RATE 55 ML/MIN (>89); SODIUM (NA) 131 MEQ/L (136-145); TOTAL BILIRUBIN ADULT 0.2 MG/DL (0.2-1.0); TOTAL PROTEIN 6.7 GM/DL (6.4-8.2)
[2017-08-02 10:06] LABS: GLUCOSE,RANDOM 492 MG/DL (74-106)
[2017-08-02] MEDS ORDERED: SODIUM CHLORID 0.9% 500 ML INJ 500 ML IV ONE ×3 (10:15→17:15)
[2017-08-02] MEDS ORDERED: ACETAMINOPHEN/HYDROcodone 325 MG/5 MG TAB PO ONE (10:15)
[2017-08-02] MEDS ORDERED: RESP: ALBUTEROL 2.5 MG/IPRATROPIUM 0.5 MG NEB (PRN) INH (10:30)
[2017-08-02] MEDS ORDERED: MISCELLANEOUS NURSING INFORMATION XX SCH (10:30)
[2017-08-02] MEDS ORDERED: CHLORHEXIDINE GLUCONATE 2 % 1 PACK (2 CLOTHS) TOP PRN (10:30)
[2017-08-02] MEDS: SODIUM CHLOR 0.9% 1000 ML INJ 1,000 ML IV SCH (10:30)
[2017-08-02] MEDS ORDERED: SODIUM CHLOR 0.9% 1000 ML INJ 1,000 ML IV ONE (10:30)
[2017-08-02] MEDS ORDERED: SODIUM CHLORIDE 0.9% FLUSH 10 ML FLUSH IV FLUSH PRN (10:30)
[2017-08-02] MEDS ORDERED: INSULIN ASPART SUPPLEMENTAL SCALE SQ SCH (11:00)
[2017-08-02] MEDS: PIPERACIL-TAZO 4.5 GM PREMIX 100 ML IV SCH ×2 (11:27→17:20)
[2017-08-02] MEDS ORDERED: INSULIN HUMAN REGULAR 1,000 UNITS/10 ML VIAL IV PUSH ONE (11:30)
[2017-08-02] MEDS: ACETAMINOPHEN/HYDROcodone 325 MG/10 MG TAB PO SCH ×2 (12:00→17:20)
[2017-08-02] MEDS: ENOXAPARIN SODIUM 40 MG/0.4 ML SYRINGE SQ SCH (12:00)
[2017-08-02] MEDS ORDERED: DEXTROSE 50% IN WATER 50 ML VIAL(D50) IV PUSH PRN ×2 (12:30→20:45)
[2017-08-02] MEDS ORDERED: MISC INFORMATION OTHER ONE (12:30)
[2017-08-02] MEDS ORDERED: INSULIN REGULAR (IV INFUSION) 100 UNITS in SODIUM CHLORIDE 0.9% INJ 99 ML IV PRN (12:30)
[2017-08-02] MEDS: PREGABALIN 100 MG CAP PO SCH ×2 (13:00→17:20)
[2017-08-02] MEDS: methylPREDNISolone SOD SUCC 125 MG/2 ML VIAL IV PUSH SCH ×2 (13:50→21:40)
--- NOTE | 2017-08-02 14:19 | HHI.HP ---
HPI Service Critical Care Medicine Primary Care Physician Unknown Admission Diagnosis Right lower lobe pneumonia/respiratory distress/BiPAP Diagnosis: (1) Severe sepsis Diagnosis: Principal (2) RLL pneumonia Diagnosis: Principal (3) Acute hypoxemic respiratory failure Diagnosis: Principal (4) Lactic acidemia Diagnosis: Principal (5) Severe hyperglycemia Diagnosis: Principal (6) Type 2 diabetes mellitus Diagnosis: Secondary (7) Hypertension, benign Diagnosis: Principal (8) Hypothyroidism Diagnosis: Principal (9) Diabetic neuropathy Diagnosis: Principal (10) Chronic systolic heart failure Diagnosis: Secondary (11) Severe mitral regurgitation Diagnosis: Secondary Chief Complaint: Acute hypoxemic respiratory Right lower lobe pneumonia Travel History International Travel<30 Days: No Contact w/Intl Traveler <30 Da: No Traveled to Known Affected Are: No Sepsis Criteria SIRS Criteria (2 or more): Heart rate over 90, RR > 20 or PaCO2 < 32, WBC > 83201, < 4000 or > 10% bands Sepsis Criteria (SIRS+source): Infect source susp/known Severe Sepsis (+one): Lactate >2 Septic Shock Criteria: Lactic acid >=4 Criteria Outcome: Meets septic shock criteria History of Present Illness Patient is a 62-year-old male with past medical history significant for COPD, coronary artery disease status post CABG, cardiomyopathy EF 35-40%, severe mitral regurgitation (apparently told by CT surgeon not a candidate for surgery, per the patient), type 2 diabetes, hypertension, who was brought to the emergency department by EMS for shortness of breath and severe wheezing. Given IV sedative Medrol 125 mg and breathing treatment by EMS. In the ER BiPAP was initiated due to persistent shortness of breath. Chest x-ray shows a right lower lobe pneumonia interstitial changes bilaterally. ER physician administered IV ceftriaxone I have started the patient on IV Zosyn and azithromycin. Because of the history of COPD have also started him on IV Solu- Medrol and DuoNeb breathing treatments. Blood and sputum cultures will be sent. Patient is septic with a white count of 18.7 and lactic acid 7. 2 L normal saline boluses ordered. BUN is 22 with creatinine of 1.33. Initial blood sugar was 492 and I have started patient on IV insulin per ICU protocol I evaluated the patient in the ICU. Patient is currently on BiPAP oxygen saturation is below 90% on 60% FiO2. He is still dyspneic but improving subjectively. Follow-up chest x-ray in a.m. Serial lactic acid will be checked. Patient has history of severe mitral regurgitation. His EF was 35-40 % which is an overestimation due to mitral regurgitation. Actually we may be close to 15-20% and for that reason patient was deemed not a candidate for valve replacement Review of Systems ROS Limitations: Clinical Condition (history limited by BiPAP use) Past Family Social History Allergies: Coded Allergies: No Known Allergies (Unverified , 08/02/17) Past Medical History Chronic systolic heart failure with ejection fraction 30-35% Type 2 diabetes mellitus Severe Mitral regurgitation Peripheral arterial disease History of Bacteremia due to Staphylococcus aureus CAD Past Surgical History Hx of CABG Status post above knee amputation of right lower extremity Reported Medications Furosemide 40 Mg Tab 40 Mg PO DAILY Lisinopril 5 Mg Tab 5 Mg PO DAILY Epinephrine Inj 1 Mg/Ml (1 Ml) Inj 0.3 Mg SQ ONCE PRN Solu-Cortef Inj (Hydrocortisone Sodium Succinate) 250 Mg/2 Ml Inj 250 Mg IV PUSH ONCE PRN Cefazolin Inj (Cefazolin Sodium/Dextrose) 2 Gm/50 Ml Bagp 2 Gm IV Q8H 15 Days [place] (Hydrocodone-Acetaminophen) 10-325 Mg Tab 1 Tab PO Q6HR 7 Days Levemir Inj (Insulin Detemir) 1,000 unit/ 10 ML Vial 8 Units SQ BID 30 Days Novolog Inj (Insulin Aspart) SSI Atorvastatin (Atorvastatin Calcium) 80 Mg Tab 80 Mg PO HS 30 Days Prilosec (Omeprazole Magnesium) 20 Mg Tab 1 Tab PO BID Lyrica (Pregabalin) 100 Mg Cap 100 Mg PO TID Adult Aspirin EC Low Strength (Aspirin) 81 Mg Tabec 81 Mg PO DAILY 30 Days Norvasc (Amlodipine Besylate) 5 Mg Tab 5 Mg PO DAILY Nortriptyline (Nortriptyline HCl) 75 Mg Cap 75 Mg PO HS Plavix (Clopidogrel Bisulfate) 75 Mg Tab 75 Mg PO DAILY Synthroid (Levothyroxine Sodium) 100 Mcg Tab 100 Mcg PO DAILY@06 Carvedilol 6.25 Mg Tab 6.25 Mg PO BID B12 (Cyanocobalamin) 1,000 Mcg Tab 1,000 Mcg PO DAILY Active Ordered Medications Reviewed Family History He does not know much about his family history Social History Smokes half pack of cigarettes daily Denies current alcohol use Physical Exam Vital Signs Vital Signs Date Time Temp Pulse Resp B/P (MAP) Pulse Ox O2 Delivery O2 Flow Rate FiO2 08/02/17 12:00 97.6 93 25 122/83 (96) 100 08/02/17 12:00 93 08/02/17 11:59 08/02/17 11:55 96 70 08/02/17 11:46 99 18 105/55 (72) 97 50 08/02/17 11:04 100 50 08/02/17 09:18 100 70 08/02/17 08:59 98.1 113 176/75 (108) 92 Nasal Cannula 6.00 08/02/17 08:59 91 Nasal Cannula 6.00 Physical Exam GENERAL: Well-developed male patient currently in moderate respiratory distress. On BiPAP SKIN: Focused skin assessment warm/dry. HEAD: Atraumatic. Normocephalic. EYES: Pupils equal and round. No scleral icterus. No injection or drainage. ENT: No nasal bleeding or discharge. BiPAP mask limits exam NECK: Trachea midline. No JVD. Supple. CARDIOVASCULAR: Heart rate is distant. Mild systolic murmur heard in the apex ( I could not hear a blowing pansystolic murmur) RESPIRATORY: Moderate accessory muscle use. Bilateral wheezing. Breath sounds equal bilaterally. GASTROINTESTINAL: Abdomen soft, non-tender, nondistended. Hepatic and splenic margins not palpable. MUSCULOSKELETAL: Status post right AKA NEUROLOGICAL: Awake and alert. Motor grossly within normal limits. No focal deficits Laboratory Laboratory Tests Test 08/02/17 09:11 08/02/17 09:22 08/02/17 10:40 08/02/17 11:08 White Blood Count 18.7 Red Blood Count 4.67 Hemoglobin 11.9 Hematocrit 39.9 Mean Corpuscular Volume 85.6 Mean Corpuscular Hemoglobin 25.6 Mean Corpuscular Hemoglobin Concent 29.9 Red Cell Distribution Width 19.8 Platelet Count 414 Mean Platelet Volume 9.8 Neutrophils (%) (Auto) 68.8 Lymphocytes (%) (Auto) 22.9 Monocytes (%) (Auto) 5.0 Eosinophils (%) (Auto) 2.0 Basophils (%) (Auto) 1.3 Neutrophils # (Auto) 12.9 Lymphocytes # (Auto) 4.3 Monocytes # (Auto) 0.9 Eosinophils # (Auto) 0.4 Basophils # (Auto) 0.2 CBC Comment DIFF FINAL Differential Comment Blood Urea Nitrogen 22 Creatinine 1.33 Random Glucose 492 Total Protein 6.7 Albumin 2.9 Calcium Level 7.9 Alkaline Phosphatase 157 Aspartate Amino Transf (AST/SGOT) 17 Alanine Aminotransferase (ALT/SGPT) 13 Total Bilirubin 0.2 Sodium Level 131 Potassium Level 4.4 Chloride Level 98 Carbon Dioxide Level 18.7 Anion Gap 14 Estimat Glomerular Filtration Rate 55 Troponin I LESS THAN 0.02 Blood Gas Puncture Site LT RADIAL RT RADIAL Blood Gas Patient Temperature 98.6 98.6 Blood Gas HCO3 19 19 Blood Gas Base Excess -6.1 -4.3 Blood Gas Oxygen Saturation 94 92 Arterial Blood pH 7.33 7.42 Arterial Blood Partial Pressure CO2 37 30 Arterial Blood Partial Pressure O2 97 71 Arterial Blood Oxygen Content 14.4 12.5 Arterial Blood Carboxyhemoglobin 3.0 2.3 Arterial Blood Methemoglobin 0.4 0.4 Blood Gas Hemoglobin 10.8 9.6 Oxygen Delivery Device BIPAP BIPAP Blood Gas Ventilator Setting IPAP15/EPAP5 IPAP15/EPAP5 Blood Gas Inspired Oxygen 70 50 Lactic Acid Level 7.0 Date/Time Source Procedure Growth Status 08/02/17 09:40 Blood Peripheral Aerobic Blood Culture Pending Received 08/02/17 09:40 Blood Peripheral Anaerobic Blood Culture Pending Received Result Diagram: 08/02/17 0911 08/02/17 0911 Imaging Chest x-ray shows right lower lobe pneumonia and bilateral interstitial infiltrates Septic Shock Reassessment Septic shock perfusion: reassessment completed Caprini VTE Risk Assessment Caprini VTE Risk Assessment: Mod/High Risk (score >= 2) Caprini Risk Assessment Model Point Value = 1 Point Value = 2 Point Value = 3 Point Value = 5 Age 41-60 Minor surgery BMI > 25 kg/m2 Swollen legs Varicose veins or History of unexplained or recurrent spontaneous Oral contraceptives or hormone replacement Sepsis (< 1 month) Serious lung disease, including pneumonia (< 1 month) Abnormal pulmonary function Acute myocardial infarction Congestive heart failure (< 1 month) History of inflammatory bowel disease Medical patient at bed rest Age 61-74 Arthroscopic surgery Major open surgery (> 45 min) Laparoscopic surgery (> 45 min) Malignancy Confined to bed (> 72 hours) Immobilizing plaster cast Central venous access Age >= 75 History of VTE Family history of VTE Factor V Leiden Prothrombin [id number] Lupus anticoagulant Anticardiolipin antibodies Elevated serum homocysteine Heparin-induced thrombocytopenia Other congenital or acquired thrombophilia Stroke (< 1 month) Elective arthroplasty Hip, pelvis, or leg fracture Acute spinal cord injury (< 1 month) Prophylaxis Regimen Total Risk Factor Score Risk Level Prophylaxis Regimen 0-1 Low Early ambulation 2 Moderate Order ONE of the following: *Sequential Compression Device (SCD) *Heparin 5000 units SQ BID 3-4 Higher Order ONE of the following medications: *Heparin 5000 units SQ TID *Enoxaparin/Lovenox 40 mg SQ daily (WT < 150 kg, CrCl > 30 mL/min) *Enoxaparin/Lovenox 30 mg SQ daily (WT < 150 kg, CrCl > 10-29 mL/min) *Enoxaparin/Lovenox 30 mg SQ BID (WT < 150 kg, CrCl > 30 mL/min) AND/OR *Sequential Compression Device (SCD) 5 or more Highest Order ONE of the following medications: *Heparin 5000 units SQ TID (Preferred with Epidurals) *Enoxaparin/Lovenox 40 mg SQ daily (WT < 150 kg, CrCl > 30 mL/min) *Enoxaparin/Lovenox 30 mg SQ daily (WT < 150 kg, CrCl > 10-29 mL/min) *Enoxaparin/Lovenox 30 mg SQ BID (WT < 150 kg, CrCl > 30 mL/min) AND *Sequential Compression Device (SCD) Assessment and Plan Assessment and Plan IMPRESSION: Acute hypoxemic respiratory failure Healthcare associated pneumonia Septic shock COPD exacerbation Lactic acidosis Leukocytosis Acute kidney insufficiency Severe hypoglycemia Severe MR Ischemic cardiomyopathy Coronary artery disease status post CABG Poorly controlled diabetes Chronic pain and neuropathy h/o GERD PLAN: Neuro: Monitor neuro status closely Continue when necessary home [place] for pain (home medication)\ Continue Lyrica and nortriptyline Cardiovascular: Continue aggressive fluid resuscitation, total 2.5 L crystalloids Maintenance normal saline at 75 ml per hour Trend lactic acid Watch closely for CHF exacerbation Hold Norvasc and Lasix Cont beta-serafin, aspirin, plavix, statin, HUMBLE inhibitor Initial troponin, negative Previous echo/YURIY showed severe MR EF 35-40% Pulmonology: Continue BiPAP 15/5, titrate FiO2 to keep saturation above 90% IV steroids: solumedrol 60mg IV q8h Empirical antibiotics: Zosyn antipseudomonal dose and azithromycin. Vancomycin 1.25 GM 1 f/u sputum cx, blood culture Cont scheduled Duonebs q4h and PRN GI: Nothing by mouth except meds. Famotidine for GI prophylaxis : IV fluid resuscitation as above Strict intake output ID: Empirical antibiotics: Zosyn antipseudomonal dose and azithromycin. Vancomycin 1.25 GM 1 Follow-up on blood and sputum culture Endocrine: Started on insulin drip for uncontrolled hyperglycemia blood sugar is 492 Cont levothyroxine DVT GI prophylaxis - Teds SCDs - Subcutaneous Lovenox - Famotidine for GI prophylaxis CCT 45 MIN Patient is critically ill with acute hypoxemic respiratory failure severe sepsis and septic shock with a lactic acid of 7. Source of sepsis seems to be pneumonia. Continue ICU care Code Status Full Code Discussed Condition With ED physician Problem Qualifiers (1) RLL pneumonia: Qualified Codes: J18.1 - Lobar pneumonia, unspecified organism (2) Type 2 diabetes mellitus: Ingrid Navarro MD Aug 02, 2017 14:18
[2017-08-02] MEDS: RESP: ALBUTEROL 2.5 MG/IPRATROPIUM 0.5 MG NEB (SCH) NEB ×3 (16:18→23:35)
[2017-08-02] MEDS ORDERED: VANCOMYCIN INJ 1,250 MG in SODIUM CHLOR 0.9% 250 ML INJ 250 ML IV ONE (18:00)
[2017-08-02 18:35] LABS: MAGNESIUM 2.3 MG/DL (1.5-2.5)
[2017-08-02 18:43] LABS: TROPONIN I 1.07 NG/ML (0.02-0.05)
[2017-08-02] MEDS: CHLORHEXIDINE 0.12% (ORAL KIT) 15 ML CUP MT SCH (20:00)
[2017-08-02] MEDS ORDERED: GLUCAGON 1 MG/ML VIAL OTHER PRN (20:45)
[2017-08-02] MEDS ORDERED: DC Insulin drip 2 hrs post basal insulin dose ONE (20:45)
[2017-08-02] MEDS ORDERED: DC previous DKA orders (HMC 1917) ONE (20:45)
[2017-08-02] MEDS ORDERED: INSULIN DETEMIR 100 UNITS/ML VIAL SQ SCH (21:00)
[2017-08-02] MEDS ORDERED: INSULIN NovoLIN REGULAR SUPPLEMENTAL SCALE SQ SCH (21:00)
--- NOTE | 2017-08-02 21:30 | EKG ---
Date Performed: 08/02/2017 Time Performed: 10:34:21 PTAGE: 62 years EKG: Sinus rhythm LEFT BUNDLE BRANCH BLOCK ABNORMAL ECG PREVIOUS TRACING : 06/29/2017 22.26 Since previous tracing, no significant change noted DOCTOR: Bryan Hoffman Interpretating Date/Time 08/02/2017 21:29:50
[2017-08-02] MEDS: CARVEDILOL 6.25 MG TAB PO SCH (21:39)
[2017-08-02] MEDS: FAMOTIDINE 20 MG/2 ML VIAL IV PUSH SCH (21:39)
[2017-08-02] MEDS: ATORVASTATIN 80 MG TAB PO SCH (21:39)
[2017-08-02] MEDS: SODIUM CHLORIDE 0.9% FLUSH 10 ML FLUSH IV FLUSH SCH (21:39)
[2017-08-02] MEDS: NORTRIPTYLINE HCL 25 MG CAP PO SCH (21:39)
[2017-08-03] VITALS (15 sets, daily range): BP systolic 100–134; BP diastolic 63–79; PULSE 89–112; RESP 20–30; TEMP 97.6–98.3; O2SAT 88–100
[2017-08-03] MEDS: PIPERACIL-TAZO 4.5 GM PREMIX 100 ML IV SCH ×5 (00:01→23:51)
[2017-08-03] MEDS: ACETAMINOPHEN/HYDROcodone 325 MG/10 MG TAB PO SCH ×5 (00:02→23:51)
[2017-08-03] MEDS ORDERED: MORPHINE SULFATE 2 MG/ML INJ ONE (00:45)
[2017-08-03] MEDS ORDERED: MORPHINE SULFATE 2 MG/ML INJ IV ONE (01:00)
[2017-08-03 01:21] LABS: AUTOMATED NEUTROPHIL # 15.5 TH/MM3 (1.8-7.7); BASOPHIL # 0.1 TH/MM3 (0-0.2); BASOPHIL % 0.3 % (0.0-2.0); HEMATOCRIT 27.8 % (39.0-51.0); HEMOGLOBIN 8.6 GM/DL (13.0-17.0); LYMPH % 5.1 % (9.0-44.0); LYMPHOCYTE # 0.8 TH/MM3 (1.0-4.8); MEAN CELL VOLUME 84.2 FL (80.0-100.0); MEAN CORPUSCULAR HEMOGLOBIN 25.9 PG (27.0-34.0); MEAN CORPUSCULAR HGB CONC 30.8 % (32.0-36.0); MEAN PLATELET VOLUME 9.9 FL (7.0-11.0); MONO % 0.5 % (0.0-8.0); MONOCYTE # 0.1 TH/MM3 (0-0.9); NEUT % 94.1 % (16.0-70.0); PLATELET COUNT 209 TH/MM3 (150-450); RED CELL DISTRIBUTION WIDTH 19.5 % (11.6-17.2); WHITE BLOOD COUNT 16.5 TH/MM3 (4.0-11.0)
[2017-08-03 01:44] LABS: ALBUMIN 2.5 GM/DL (3.4-5.0); CREATININE 1.19 MG/DL (0.60-1.30); TOTAL BILIRUBIN ADULT 0.5 MG/DL (0.2-1.0); TOTAL PROTEIN 6.3 GM/DL (6.4-8.2); TROPONIN I 0.44 NG/ML (0.02-0.05)
[2017-08-03 01:50] LABS: CALCIUM-PROTEIN CORRECTED 7.4 MG/DL (8.5-10.1)
[2017-08-03] MEDS ORDERED: INSULIN REGULAR (IV INFUSION) 100 UNITS in SODIUM CHLORIDE 0.9% INJ 99 ML IV PRN (02:00)
[2017-08-03] MEDS ORDERED: CALCIUM GLUCONATE INJ 2 GM in SODIUM CHLORIDE 0.9% INJ 100 ML IV ONE (02:00)
[2017-08-03] MEDS ORDERED: DEXTROSE 50% IN WATER 50 ML VIAL(D50) IV PUSH PRN ×2 (02:00→15:45)
[2017-08-03] MEDS ORDERED: MISC INFORMATION OTHER ONE (02:00)
[2017-08-03] MEDS ORDERED: KETOROLAC TROMETHAMINE 30 MG/ML (IVP) VIAL IV PUSH ONE (03:00)
[2017-08-03] MEDS: CHLORHEXIDINE GLUCONATE 2 % 1 PACK (2 CLOTHS) TOP SCH (03:52)
[2017-08-03] MEDS: RESP: ALBUTEROL 2.5 MG/IPRATROPIUM 0.5 MG NEB (SCH) NEB ×6 (03:58→23:39)
--- NOTE | 2017-08-03 05:13 | RADRPT ---
EXAM DATE/TIME: 08/03/2017 03:45 [facility] COMPARISON: CHEST SINGLE AP, August 02, 2017, 9:08. INDICATIONS : [place]ute for respiratory disease. MEDICAL HISTORY : Hypertension. Diabetes mellitus type II. Myocardial infarction. Peripheral vascular disease. Coronary artery disease. SURGICAL HISTORY : CABG. ENCOUNTER: Subsequent ACUITY: 2 days PAIN SCORE: Non-responsive. LOCATION: chest FINDINGS: Interval increased hazy opacity throughout the right lung likely reflecting pleural effusion. Redemon stration of right lower lobe airspace consolidation. Minimal left lower lobe airspace disease and lik yazmin trace pleural fluid. Persistent diffuse interstitial prominence. Cardiomediastinal contours are s table. Remainder of the exam is unchanged. CONCLUSION: 1. Developing right-sided pleural effusion with persistent right lower lobe airspace consolidation. 2. Trace left pleural effusion and associated airspace disease at the left lung base. Varun De Paz MD on August 03, 2017 at 5:09 Board Certified Radiologist. This report was verified electronically.
[2017-08-03] MEDS: LEVOTHYROXINE SODIUM 100 MCG TAB PO SCH (06:03)
[2017-08-03] MEDS: methylPREDNISolone SOD SUCC 125 MG/2 ML VIAL IV PUSH SCH (06:03)
[2017-08-03] MEDS: SODIUM CHLOR 0.9% 1000 ML INJ 1,000 ML IV SCH (06:04)
[2017-08-03] MEDS: CHLORHEXIDINE 0.12% (ORAL KIT) 15 ML CUP MT SCH ×2 (08:00→20:00)
[2017-08-03] MEDS: PREGABALIN 100 MG CAP PO SCH ×3 (08:04→17:23)
[2017-08-03] MEDS: SODIUM CHLORIDE 0.9% FLUSH 10 ML FLUSH IV FLUSH SCH ×2 (08:04→20:47)
[2017-08-03] MEDS: FAMOTIDINE 20 MG/2 ML VIAL IV PUSH SCH ×2 (08:04→20:47)
[2017-08-03] MEDS: CARVEDILOL 6.25 MG TAB PO SCH ×2 (08:05→20:47)
[2017-08-03] MEDS: ASPIRIN EC 81 MG TABEC PO SCH ×2 (08:05→09:36)
[2017-08-03] MEDS: CLOPIDOGREL 75 MG TAB PO SCH ×2 (08:05→09:36)
[2017-08-03] MEDS: LISINOPRIL 5 MG TAB PO SCH (08:11)
[2017-08-03] MEDS: CYANOCOBALAMIN 1,000 MCG TAB PO SCH (08:11)
[2017-08-03] MEDS ORDERED: INSULIN DETEMIR 100 UNITS/ML VIAL SQ SCH (09:00)
--- NOTE | 2017-08-03 10:08 | MB ---
cc: [facility] DATE OF CONSULTATION: 08/03/2017 REASON FOR CONSULTATION: Chest pain, abnormal cardiac enzymes, history of severe mitral regurgitation. HISTORY OF PRESENT ILLNESS The patient is a 62-year-old white male, extensive extensively evaluated by my partner Dr. Anupam Richter last month, with a history of coronary disease, severe mitral regurgitation, reduced ejection reduced ejection fraction of 35-40%, diabetes, COPD, peripheral vascular disease who presented once again to the hospital with increasing shortness of breath. The past 2-3 days he has had considerable increase in baseline dyspnea. In addition last night he had about a 90-minute episode of sharp left parasternal chest pain. There was no associated nausea or diaphoresis. He denies any other recent episodes of chest discomfort. The chest pain was not pleuritic. He also denies lightheadedness, syncope, near-syncope, palpitations, left pedal edema. He has had some orthopnea without paroxysmal nocturnal dyspnea. PAST MEDICAL HISTORY 1. Coronary artery disease status post bypass surgery 08/31/2006. His last heart catheterization was 06/25/2017 showing severe three-vessel tunica-biloxi and severe left main coronary artery disease, patent left internal mammary artery to the LAD with some collaterals to the posterior descending artery, patent vein graft to the obtuse marginal and patent vein graft to the posterior descending artery. The vein graft presumably to a posterolateral branch was totally occluded. Ejection fraction was 35-40%. And severe mitral regurgitation was noted. 2. Severe mitral regurgitation demonstrated by cardiac catheterization and transesophageal echocardiography last month. 3. Diabetes 4. Hypertension 5. Hyperlipidemia. 6. Gastroesophageal reflux disease. 7. Seizure disorder. 8. COPD. 9. History of esophageal ulcer. 10. Peripheral vascular disease status post right [id number] amputation 08/18/2015. 11. Hypothyroidism. MEDICATIONS medications at home 1. Carvedilol 6.25 mg b.i.d. 2. Plavix 75 mg daily. 3. Norvasc 5 mg daily. 4. Atorvastatin 80 mg q.h.s. 5. Lisinopril 5 mg daily. 6. Furosemide 40 mg daily. ALLERGIES NO KNOWN DRUG ALLERGIES. FAMILY HISTORY There is no significant family history of early myocardial infarction. SOCIAL HISTORY The patient smokes about seven cigarettes per day. He denies alcohol abuse. REVIEW OF SYSTEMS Review of systems as in the history of present illness otherwise negative or noncontributory. He also denies headache, abdominal pain, melena, dyspepsia, bright red blood per rectum, fevers. PHYSICAL EXAMINATION: VITAL SIGNS: On physical examination his blood pressure 127/79 with a pulse of 100, respirations 22. IN GENERAL: In general he is a well-developed, thin white male in no acute distress. HEAD, EYES, EARS, NOSE, AND THROAT/NECK: Jugular venous pressure is seen to the mandible. Carotid pulses are 2+ bilaterally and without bruits. CHEST: Examination of the chest reveals bibasilar crackles left greater than right with diminished breath sounds at the bases CARDIAC: He has a regular rhythm and rate with a grade 1-2/6 systolic murmur heard best at the apex. No definite gallop is audible ABDOMEN: On abdominal examination he has a soft, nontender abdomen. Bowel sounds are present. There is no definite hepatosplenomegaly. EXTREMITIES: Examination of the extremities reveals no clubbing, cyanosis or edema on the left. The patient is status post right [id number] amputation. LABORATORY FINDINGS: Laboratory data includes WBC 16.5, hemoglobin 8.6, platelets 209, troponin 1.07, BUN 29, creatinine 1.19, potassium 5.1. X-RAYS Chest x-ray shows diffuse increased interstitial markings with new right lower lobe infiltrate, possible small bilateral pleural effusions. EKG shows normal sinus rhythm, left bundle-branch block, no change from 06/29/2017. IMPRESSION Recurrent respiratory insufficiency, slightly abnormal troponin level in this 62-year-old white male with a history of coronary disease status post bypass surgery 08/31/2006 with recent cardiac catheterization results as noted above, history of severe mitral regurgitation, diabetes, COPD, peripheral vascular disease, seizure disorder. Overall I doubt the slightly abnormal troponin level is due to acute coronary syndrome. The cardiac catheterization findings have been reviewed. Apparently they are unchanged from a prior cardiac catheterization and there is no disease amendable to percutaneous or repeat surgical revascularization. Some of his respiratory insufficiency may be due to congestive heart failure. Otherwise I suspect much of it is due to pneumonia, COPD. Apparently he has not felt to be a good candidate for mitral valve repair or replacement at this point. RECOMMENDATIONS 1. Would continue his usual home cardiac medications 2. Continue pulmonary therapy and consider mild diuresis. 3. At this point, from a cardiac standpoint, treatment is limited to medical therapy. MD ANA LILIA Aguirre/ace /7:29 AM /9:13 AM MTDDinora
[2017-08-03] MEDS: AZITHROMYCIN INJ 500 MG in SODIUM CHLOR 0.9% 250 ML INJ 250 ML IV SCH (12:49)
--- NOTE | 2017-08-03 12:59 | HHI.CCPN ---
Subjective Remarks/Hospital Course Patient is a 62-year-old male with past medical history significant for COPD, coronary artery disease status post CABG, cardiomyopathy EF 35-40%, severe mitral regurgitation (apparently told by CT surgeon not a candidate for surgery, per the patient), type 2 diabetes, hypertension, who was brought to the emergency department by EMS for shortness of breath and severe wheezing. Given IV sedative Medrol 125 mg and breathing treatment by EMS. In the ER BiPAP was initiated due to persistent shortness of breath. Chest x-ray shows a right lower lobe pneumonia interstitial changes bilaterally. ER physician administered IV ceftriaxone I have started the patient on IV Zosyn and azithromycin. Because of the history of COPD have also started him on IV Solu- Medrol and DuoNeb breathing treatments. Blood and sputum cultures will be sent. Patient is septic with a white count of 18.7 and lactic acid 7. 2 L normal saline boluses ordered. BUN is 22 with creatinine of 1.33. Initial blood sugar was 492 and I have started patient on IV insulin per ICU protocol I evaluated the patient in the ICU. Patient is currently on BiPAP oxygen saturation is below 90% on 60% FiO2. He is still dyspneic but improving subjectively. Follow-up chest x-ray in a.m. Serial lactic acid will be checked. Patient has history of severe mitral regurgitation. His EF was 35-40 % which is an overestimation due to mitral regurgitation. Actually we may be close to 15-20% and for that reason patient was deemed not a candidate for valve replacement SUBJ 08/03: Remains on insulin but breathing improved. Currently on nasal cannula with adequate oxygen saturation. Troponin peaked at 1.07. Dr. Walker recommended medical management. Recent cath-CAD with no lesions amenable to PCI. Start IV Lasix due to increasing pleural effusion especially right Objective Vital Signs Date Time Temp Pulse Resp B/P (MAP) Pulse Ox O2 Delivery O2 Flow Rate FiO2 08/03/17 10:35 18 08/03/17 08:15 96 Partial Rebreather 15.00 08/03/17 08:03 55 08/03/17 08:00 98.2 100 112/67 (82) Intake and Output 08/03/17 08/03/17 08/04/17 08:00 16:00 00:00 Intake Total 1287 ml Output Total 700 ml Balance 587 ml Result Diagram: 08/03/1710108/03/17101 Imaging Chest x-ray shows right lower lobe pneumonia and bilateral interstitial infiltrates Objective Remarks GENERAL: Well-developed male patient currently in mild respiratory distress. On NC SKIN: Focused skin assessment warm/dry. HEAD: Atraumatic. Normocephalic. EYES: Pupils equal and round. No scleral icterus. No injection or drainage. ENT: No nasal bleeding or discharge. NECK: Trachea midline.supple. CARDIOVASCULAR: Heart rate is distant. Mild systolic murmur heard in the apex ( I could not hear a blowing pansystolic murmur) RESPIRATORY: Moderate accessory muscle use. Bilateral wheezing. Breath sounds diminished right side GASTROINTESTINAL: Abdomen soft, non-tender, nondistended. Hepatic and splenic margins not palpable. MUSCULOSKELETAL: Status post right AKA NEUROLOGICAL: Awake and alert. Motor grossly within normal limits. No focal deficits A/P Assessment and Plan IMPRESSION: Acute hypoxemic respiratory failure Healthcare associated pneumonia Septic shock COPD exacerbation Elevated troponin Lactic acidosis Leukocytosis Acute kidney insufficiency Severe hypoglycemia Severe MR Ischemic cardiomyopathy Coronary artery disease status post CABG Poorly controlled diabetes Chronic pain and neuropathy h/o GERD PLAN: Neuro: Monitor neuro status closely Continue when necessary home [place] for pain (home medication)\ Continue Lyrica and nortriptyline Cardiovascular: DC normal saline at 75 ml per hour Start on IV Lasix 20 mg q12 Continue aspirin Plavix Coreg and HUMBLE inhibitor as along with statin Continue to hold Norvasc Dr. Walker consulted for elevated troponin. Recommended continued medical management Reason catheter showed coronary artery disease but nothing amenable to PCI Trend lactic acid Previous echo/YURIY showed severe MR EF 35-40% Pulmonology: Continue BiPAP 15/5 PRN, titrate FiO2 to keep saturation above 90% IV steroids: solumedrol 60mg IV [id number] to 40 q12 Empirical antibiotics: Zosyn antipseudomonal dose and azithromycin. Vancomycin 1.25 GM 1 f/u sputum cx, blood culture Cont scheduled DuoNeb q4h and PRN GI: Start ADA, heart healthy diet. Famotidine for GI prophylaxis : IV Lasix as above Strict intake output ID: Empirical antibiotics: Zosyn antipseudomonal dose and azithromycin. Vancomycin 1.25 GM 1 Follow-up on blood and sputum culture Endocrine: On insulin drip for uncontrolled hyperglycemia Start Levemir at increased 10 U q12, with Novolog 5 U AC HS Cont levothyroxine DVT GI prophylaxis - Teds SCDs - Subcutaneous Lovenox - Famotidine for GI prophylaxis Level 3 Continue ICU care Ingrid Navarro MD Aug 03, 2017 12:59
--- NOTE | 2017-08-03 14:03 | EKG ---
Date Performed: 08/03/2017 Time Performed: 02:06:36 PTAGE: 62 years EKG: probable Sinus tachycardia with borderline 1st degree A-V block. Possible left atrial abnor mality Left axis deviation Left bundle branch block Abnormal ECG No significant change from prior sepideh ctrocardiogram. PREVIOUS TRACING : 08/03/2017 00.52 DOCTOR: Kendrick Montalvo Interpretating Date/Time 08/03/2017 14:03:24
--- NOTE | 2017-08-03 14:06 | EKG ---
Date Performed: 08/03/2017 Time Performed: 00:52:16 PTAGE: 62 years EKG: probable Sinus tachycardia with borderline 1st degree A-V block. Possible biatrial enlargem ent Left axis deviation Left bundle branch block Low QRS voltages in limb leads Abnormal ECG No signi ficant change from prior electrocardiogram. PREVIOUS TRACING : 08/02/2017 10.34 DOCTOR: Kendrick Montalvo Interpretating Date/Time 08/03/2017 14:05:36
[2017-08-03] MEDS ORDERED: INSULIN DETEMIR 100 UNITS/ML VIAL SQ ONE (14:30)
[2017-08-03] MEDS: ENOXAPARIN SODIUM 40 MG/0.4 ML SYRINGE SQ SCH (14:45)
[2017-08-03] MEDS ORDERED: GLUCAGON 1 MG/ML VIAL OTHER PRN (15:45)
[2017-08-03] MEDS ORDERED: PLEASE DISCONTINUE PREVIOUS SUPPLEMENTAL SCALE INSULIN ORDERS ONE (15:45)
[2017-08-03] MEDS: INSULIN ASPART 1,000 UNITS/10 ML VIAL SQ SCH (17:22)
[2017-08-03] MEDS: MEDIUM DOSE INSULIN NOVOLOG SUPPLEMENTAL SCALE SQ SCH ×2 (17:23→20:48)
[2017-08-03] MEDS: FUROSEMIDE 20 MG/2 ML VIAL IV PUSH SCH (17:24)
[2017-08-03] MEDS: methylPREDNISolone SOD SUCC 40 MG/1 ML VIAL IV PUSH SCH (20:47)
[2017-08-03] MEDS: ATORVASTATIN 80 MG TAB PO SCH (20:47)
[2017-08-03] MEDS: NORTRIPTYLINE HCL 25 MG CAP PO SCH (20:47)
[2017-08-03] MEDS: INSULIN DETEMIR 100 UNITS/ML VIAL SQ SCH (20:48)
[2017-08-04] VITALS (13 sets, daily range): BP systolic 106–150; BP diastolic 66–93; PULSE 66–105; RESP 20–30; TEMP 97.2–98.8; O2SAT 91–100
[2017-08-04] MEDS: CHLORHEXIDINE GLUCONATE 2 % 1 PACK (2 CLOTHS) TOP SCH (03:00)
[2017-08-04] MEDS: RESP: ALBUTEROL 2.5 MG/IPRATROPIUM 0.5 MG NEB (SCH) NEB ×5 (03:12→19:24)
--- NOTE | 2017-08-04 05:11 | RADRPT ---
EXAM DATE/TIME: 08/04/2017 03:24 [facility] COMPARISON: CHEST SINGLE AP, August 03, 2017, 3:45. INDICATIONS : Shortness of breath, possible pulmonary disease. MEDICAL HISTORY : Hypertension. Diabetes mellitus type II. Myocardial infarction. PVD CAD SURGICAL HISTORY : CABG. ENCOUNTER: Subsequent ACUITY: 3 days PAIN SCORE: Non-responsive. LOCATION: Bilateral chest FINDINGS: Persistent hazy opacity in the right mid to lower lung zones consistent with pleural effusion. Persis tent right lower lobe airspace consolidation. Minimal left lower lobe airspace disease and likely tra ce left pleural effusion. Continued diffuse interstitial prominence. Cardiomediastinal contours are s table. Remainder of exam is unchanged. CONCLUSION: 1. No significant interval change. 2. Persistent right lower lobe airspace consolidation and small right pleural effusion. 3. Left lower lobe airspace disease with trace associated effusion. Varun De Paz MD on August 04, 2017 at 5:08 Board Certified Radiologist. This report was verified electronically.
[2017-08-04] MEDS: LEVOTHYROXINE SODIUM 100 MCG TAB PO SCH (06:03)
[2017-08-04] MEDS: PIPERACIL-TAZO 4.5 GM PREMIX 100 ML IV SCH ×3 (06:03→17:07)
[2017-08-04] MEDS: ACETAMINOPHEN/HYDROcodone 325 MG/10 MG TAB PO SCH ×3 (06:03→17:08)
[2017-08-04 06:12] LABS: AUTOMATED NEUTROPHIL # 17.7 TH/MM3 (1.8-7.7); BASOPHIL % 0.1 % (0.0-2.0); HEMATOCRIT 28.3 % (39.0-51.0); HEMOGLOBIN 8.7 GM/DL (13.0-17.0); LYMPH % 5.7 % (9.0-44.0); LYMPHOCYTE # 1.1 TH/MM3 (1.0-4.8); MEAN CELL VOLUME 80.6 FL (80.0-100.0); MEAN CORPUSCULAR HEMOGLOBIN 24.6 PG (27.0-34.0); MEAN CORPUSCULAR HGB CONC 30.6 % (32.0-36.0); MONO % 2.6 % (0.0-8.0); MONOCYTE # 0.5 TH/MM3 (0-0.9); NEUT % 91.6 % (16.0-70.0); PLATELET COUNT 179 TH/MM3 (150-450); RED BLOOD COUNT 3.52 MIL/MM3 (4.50-5.90); RED CELL DISTRIBUTION WIDTH 18.9 % (11.6-17.2); WHITE BLOOD COUNT 19.4 TH/MM3 (4.0-11.0)
[2017-08-04 06:36] LABS: ALBUMIN 2.3 GM/DL (3.4-5.0); ALT (GPT) 17 U/L (12-78); AST (GOT) 20 U/L (15-37); BICARBONATE 23.9 MEQ/L (21.0-32.0); BLOOD UREA NITROGEN 40 MG/DL (7-18); CALCIUM 7.9 MG/DL (8.5-10.1); CHLORIDE 110 MEQ/L (98-107); CREATININE 1.21 MG/DL (0.60-1.30); GLOMERULAR FILTRATION RATE 61 ML/MIN (>89); GLUCOSE,RANDOM 77 MG/DL (74-106); MAGNESIUM 2.1 MG/DL (1.5-2.5); SODIUM (NA) 143 MEQ/L (136-145)
[2017-08-04 06:39] LABS: ALKALINE PHOSPHATASE 97 U/L (45-117); TOTAL BILIRUBIN ADULT 0.1 MG/DL (0.2-1.0); TOTAL PROTEIN 5.6 GM/DL (6.4-8.2)
[2017-08-04] MEDS: CHLORHEXIDINE 0.12% (ORAL KIT) 15 ML CUP MT SCH ×2 (08:00→19:53)
[2017-08-04] MEDS: MEDIUM DOSE INSULIN NOVOLOG SUPPLEMENTAL SCALE SQ SCH ×4 (08:00→21:00)
[2017-08-04] MEDS: INSULIN ASPART 1,000 UNITS/10 ML VIAL SQ SCH ×2 (08:00→17:00)
[2017-08-04] MEDS: CYANOCOBALAMIN 1,000 MCG TAB PO SCH (08:46)
[2017-08-04] MEDS: CARVEDILOL 6.25 MG TAB PO SCH ×2 (08:46→21:22)
[2017-08-04] MEDS: FUROSEMIDE 20 MG/2 ML VIAL IV PUSH SCH ×2 (08:46→17:07)
[2017-08-04] MEDS: methylPREDNISolone SOD SUCC 40 MG/1 ML VIAL IV PUSH SCH ×2 (08:46→21:22)
[2017-08-04] MEDS: PREGABALIN 100 MG CAP PO SCH ×3 (08:47→17:07)
[2017-08-04] MEDS: CLOPIDOGREL 75 MG TAB PO SCH (08:47)
[2017-08-04] MEDS: ASPIRIN EC 81 MG TABEC PO SCH (08:47)
[2017-08-04] MEDS: SODIUM CHLORIDE 0.9% FLUSH 10 ML FLUSH IV FLUSH SCH ×2 (08:47→21:22)
[2017-08-04] MEDS: LISINOPRIL 5 MG TAB PO SCH (08:47)
[2017-08-04] MEDS: AZITHROMYCIN INJ 500 MG in SODIUM CHLOR 0.9% 250 ML INJ 250 ML IV SCH (08:49)
[2017-08-04] MEDS: INSULIN DETEMIR 100 UNITS/ML VIAL SQ SCH ×2 (09:00→21:00)
--- NOTE | 2017-08-04 09:34 | PD.CARD.PN ---
Subjective Subjective Remarks Dyspnea slowly improving. No PND, CP, dizziness, palpitations. Objective Medications Item Value Date Time Furosemide 20 mg 08/03/17 1800 (Lasix Inj) BID@,18/IV PUSH 08/04/17 0846 Aspirin 81 mg 08/03/17 0900 (Ecotrin Ec) DAILY/PO 08/04/17 0847 Clopidogrel 75 mg 08/03/17 0900 Bisulfate DAILY/PO 08/04/17 0847 (Plavix) Lisinopril 5 mg 08/03/17 0900 (Prinivil) DAILY/PO 08/04/17 0847 Atorvastatin 80 mg 08/02/17 2100 Calcium HS/PO 08/03/17 2047 (Lipitor) Carvedilol 6.25 mg 08/02/17 2100 (Coreg) BID/PO 08/04/17 0846 Enoxaparin Sodium 40 mg 08/02/17 1200 (Lovenox Inj) Q24H/SQ 08/03/17 1445 Current Medications Medications (Trade) Dose Ordered Sig/Nuzhat Route Start Time Stop Time Status Last Admin Piperacillin Sod/ Tazobactam Sod 100 ml @ 200 mls/hr Q6H IV 08/02/17 12:00 08/04/17 06:03 Azithromycin 500 mg/Sodium Chloride 250 ml @ 250 mls/hr Q24H IV 08/03/17 10:00 08/04/17 08:49 (Ecotrin Ec) 81 mg DAILY PO 08/03/17 09:00 08/04/17 08:47 (Lipitor) 80 mg HS PO 08/02/17 21:00 08/03/17 20:47 (Coreg) 6.25 mg BID PO 08/02/17 21:00 08/04/17 08:46 (Plavix) 75 mg DAILY PO 08/03/17 09:00 08/04/17 08:47 ([place] 10-325 Mg) 1 tab Q6HR PO 08/02/17 12:00 08/04/17 06:03 (Synthroid) 100 mcg DAILY@06 PO 08/03/17 06:00 08/04/17 06:03 (Prinivil) 5 mg DAILY PO 08/03/17 09:00 08/04/17 08:47 (Pamelor) 75 mg HS PO 08/02/17 21:00 08/03/17 20:47 (Lyrica) 100 mg TID PO 08/02/17 13:00 08/04/17 08:47 (Vitamin B12) 1,000 mcg DAILY PO 08/03/17 09:00 08/04/17 08:46 (NS Flush) 2 ml UNSCH PRN IV FLUSH 08/02/17 10:30 (NS Flush) 2 ml BID IV FLUSH 08/02/17 21:00 08/04/17 08:47 (fentaNYL INJ) 50 mcg Q1H PRN IV PUSH 08/02/17 10:30 08/03/17 16:04 (Duoneb Neb) 1 ampule Q4HR NEB NEB 08/02/17 12:00 08/04/17 07:33 (Duoneb Neb) 1 ampule Q4HR NEB PRN INH 08/02/17 10:30 (Peridex 0.12% Liq) 15 ml BID@08,20 MT 08/02/17 20:00 08/04/17 08:00 (Pepcid Inj) 20 mg Q12HR IV PUSH 08/02/17 21:00 08/03/17 20:47 (Lovenox Inj) 40 mg Q24H SQ 08/02/17 12:00 08/03/17 14:45 Miscellaneous Information 1 Q361D XX 08/02/17 10:30 08/02/17 10:30 (Chlorhexidine 2% Cloth) 3 pack Taper DAILY@04 TOP 08/03/17 04:00 07/30/18 03:59 08/03/17 03:52 (Chlorhexidine 2% Cloth) 3 pack UNSCH PRN TOP 08/02/17 10:30 Insulin Human Regular 100 units/ Sodium Chloride 100 ml @ 1 mls/hr TITRATE PRN IV 08/03/17 02:00 08/03/17 02:53 (D50w (Vial) Inj) 50 ml UNSCH PRN IV PUSH 08/03/17 02:00 (Levemir Inj) 20 units Q12H SQ 08/03/17 21:00 08/03/17 20:48 (NovoLOG INJ) 5 units TIDAC SQ 08/03/17 17:00 08/03/17 17:22 (Lasix Inj) 20 mg BID@,18 IV PUSH 08/03/17 18:00 08/04/17 08:46 (SoluMEDROL INJ) 40 mg Q12HR IV PUSH 08/03/17 21:00 08/04/17 08:46 (D50w (Vial) Inj) 50 ml UNSCH PRN IV PUSH 08/03/17 15:45 (Glucagon Inj) 1 mg UNSCH PRN OTHER 08/03/17 15:45 (NovoLOG SUPPLEMENTAL SCALE) 1 ACHS SLIDING SCALE SQ 08/03/17 17:00 08/03/17 17:23 Vital Signs / I&O Vital Signs Date Time Temp Pulse Resp B/P (MAP) Pulse Ox O2 Delivery O2 Flow Rate FiO2 08/04/17 07:43 91 Simple Mask 12.00 08/04/17 07:03 26 08/04/17 04:00 97.2 85 20 106/66 (79) 98 08/04/17 03:12 100 55 08/04/17 00:00 98.8 94 22 110/74 (86) 98 08/04/17 00:00 92 08/03/17 23:39 99 55 08/03/17 20:00 100 08/03/17 20:00 98.3 104 28 134/72 (92) 100 08/03/17 20:00 Bi-Pap 55 08/03/17 19:23 100 55 08/03/17 19:23 100 BiPAP 55 08/03/17 19:00 Bi-Pap 40 08/03/17 18:23 18 08/03/17 17:11 94 55 08/03/17 17:05 18 08/03/17 16:00 98.0 89 20 101/68 (79) 99 08/03/17 15:00 89 08/03/17 14:05 96 55 08/03/17 12:00 97.6 90 20 108/63 (78) 88 I/O 08/03/17 08/03/17 08/03/17 08/04/17 08/04/17 08/04/17 07:00 15:00 23:00 07:00 15:00 23:00 Intake Total 1287 ml 1600 ml 720 ml Output Total 700 ml 1000 ml 900 ml Balance 587 ml 600 ml -180 ml Intake Oral 480 ml 620 ml IV Total 807 ml 1600 ml 100 ml Output Urine Total 700 ml 1000 ml 900 ml # Bowel Movements 0 0 Physical Exam GENERAL: Well developed, thin. No acute distress. HEENT: Jugular venous pressure 10 cm water. CHEST: Diminished breath sounds diffusely especially bases. Minimal bibasilar crackles. CARDIAC: Regular rate and rhythm without S3, S4. I-II/ systolic murmur apex. ABDOMEN: Soft, nontender, no hepatosplenomegaly. Bowel sounds present. EXTREMITIES: No clubbing, cyanosis, or edema on the left. Laboratory Laboratory Tests Test 08/03/17 12:30 08/04/17 05:15 Troponin I 0.77 NG/ML White Blood Count 19.4 TH/MM3 Red Blood Count 3.52 MIL/MM3 Hemoglobin 8.7 GM/DL Hematocrit 28.3 % Mean Corpuscular Volume 80.6 FL Mean Corpuscular Hemoglobin 24.6 PG Mean Corpuscular Hemoglobin Concent 30.6 % Red Cell Distribution Width 18.9 % Platelet Count 179 TH/MM3 Mean Platelet Volume 9.0 FL Neutrophils (%) (Auto) 91.6 % Lymphocytes (%) (Auto) 5.7 % Monocytes (%) (Auto) 2.6 % Eosinophils (%) (Auto) 0.0 % Basophils (%) (Auto) 0.1 % Neutrophils # (Auto) 17.7 TH/MM3 Lymphocytes # (Auto) 1.1 TH/MM3 Monocytes # (Auto) 0.5 TH/MM3 Eosinophils # (Auto) 0.0 TH/MM3 Basophils # (Auto) 0.0 TH/MM3 CBC Comment DIFF FINAL Differential Comment Blood Urea Nitrogen 40 MG/DL Creatinine 1.21 MG/DL Random Glucose 77 MG/DL Total Protein 5.6 GM/DL Albumin 2.3 GM/DL Calcium Level 7.9 MG/DL Magnesium Level 2.1 MG/DL Alkaline Phosphatase 97 U/L Aspartate Amino Transf (AST/SGOT) 20 U/L Alanine Aminotransferase (ALT/SGPT) 17 U/L Total Bilirubin 0.1 MG/DL Sodium Level 143 MEQ/L Potassium Level 4.3 MEQ/L Chloride Level 110 MEQ/L Carbon Dioxide Level 23.9 MEQ/L Anion Gap 9 MEQ/L Estimat Glomerular Filtration Rate 61 ML/MIN Imaging Last 24 hours Impressions Chest X-Ray 08/04/17 0600 Signed Impressions: Service Date/Time: Friday, August 04, 2017 03:24 - CONCLUSION: 1. No significant interval change. 2. Persistent right lower lobe airspace consolidation and small right pleural effusion. 3. Left lower lobe airspace disease with trace associated effusion. Varun De Paz MD Assessment and Plan Problem List: (1) CAD (coronary artery disease) ICD Codes: I25.10 - Atherosclerotic heart disease of [place] coronary artery without angina pectoris Status: Chronic Plan: Stable overnight. No further atypical CP. Patient without any CAD amenable to percutaneous or repeat surgical revascularization based on most recent cath. REC continue medical therapy of his CAD, continue beta serafin/aspirin/Plavix, add oral nitrate will f/u as needed (2) Dilated cardiomyopathy ICD Codes: I42.0 - Dilated cardiomyopathy Status: Chronic Plan: Suspect most of his respiratory insufficiency pulmonary in etiology, small component of acute CHF. His cardiomyopathy is likely due to CAD and valvular disease. REC continue beta serafin/HUMBLE-I consider change to oral furosemide when his pulmonary status has been optimized, I would recommend he see CV surgery again to reconsider MVR (3) Severe mitral regurgitation ICD Codes: I34.0 - Nonrheumatic mitral (valve) insufficiency Status: Chronic Plan: As noted above, when patient's pulmonary status optimized, then would have him see CV surgery again to revisit possibility of MVR. (4) HTN (hypertension) ICD Codes: I10 - Essential (primary) hypertension Status: Chronic Plan: Stable. Normotensive. Code Status full code Discussed Condition With patient, at length Problem Qualifiers (1) CAD (coronary artery disease): Qualified Codes: I25.110 - Atherosclerotic heart disease of [place] coronary artery with unstable angina pectoris (2) HTN (hypertension): Qualified Codes: I10 - Essential (primary) hypertension Shen Walker MD Aug 04, 2017 09:34
[2017-08-04] MEDS: FAMOTIDINE 20 MG/2 ML VIAL IV PUSH SCH ×2 (10:06→21:22)
[2017-08-04] MEDS ORDERED: INSULIN DETEMIR 100 UNITS/ML VIAL SQ ONE (10:45)
--- NOTE | 2017-08-04 12:18 | HHI.CCPN ---
Subjective Remarks/Hospital Course Patient is a 62-year-old male with past medical history significant for COPD, coronary artery disease status post CABG, cardiomyopathy EF 35-40%, severe mitral regurgitation (apparently told by CT surgeon not a candidate for surgery, per the patient), type 2 diabetes, hypertension, who was brought to the emergency department by EMS for shortness of breath and severe wheezing. Given IV sedative Medrol 125 mg and breathing treatment by EMS. In the ER BiPAP was initiated due to persistent shortness of breath. Chest x-ray shows a right lower lobe pneumonia interstitial changes bilaterally. ER physician administered IV ceftriaxone I have started the patient on IV Zosyn and azithromycin. Because of the history of COPD have also started him on IV Solu- Medrol and DuoNeb breathing treatments. Blood and sputum cultures will be sent. Patient is septic with a white count of 18.7 and lactic acid 7. 2 L normal saline boluses ordered. BUN is 22 with creatinine of 1.33. Initial blood sugar was 492 and I have started patient on IV insulin per ICU protocol I evaluated the patient in the ICU. Patient is currently on BiPAP oxygen saturation is below 90% on 60% FiO2. He is still dyspneic but improving subjectively. Follow-up chest x-ray in a.m. Serial lactic acid will be checked. Patient has history of severe mitral regurgitation. His EF was 35-40 % which is an overestimation due to mitral regurgitation. Actually we may be close to 15-20% and for that reason patient was deemed not a candidate for valve replacement SUBJ 08/03: Remains on insulin but breathing improved. Currently on nasal cannula with adequate oxygen saturation. Troponin peaked at 1.07. Dr. Walker recommended medical management. Recent cath-CAD with no lesions amenable to PCI. Start IV Lasix due to increasing pleural effusion especially right 08/04: Intubated sedated in bed breathing more comfortably. Transition to subcutaneous insulin but hyperglycemic in a.m. Will reduce Levemir dose to 12 U q12 with continued pre meal insulin. UO remains adequate Objective Vital Signs Date Time Temp Pulse Resp B/P (MAP) Pulse Ox O2 Delivery O2 Flow Rate FiO2 08/04/17 09:47 35 08/04/17 08:00 97.4 66 120/82 (95) 99 08/04/17 08:00 Bi-Pap 10.00 55 Intake and Output 08/04/17 08/04/17 08/05/17 08:00 16:00 00:00 Intake Total 720 ml Output Total 900 ml Balance -180 ml Result Diagram: 08/04/1751408/04/17 05 Imaging Chest x-ray shows right lower lobe pneumonia and bilateral interstitial infiltrates Objective Remarks GENERAL: Well-developed male patient currently in mild respiratory distress. On NC SKIN: Skin warm. HEAD: Atraumatic. Normocephalic. EYES: Pupils equal and round. No scleral icterus. No injection or drainage. ENT: No nasal bleeding or discharge. NECK: Trachea midline.supple. CARDIOVASCULAR: Heart rate is distant. Mild systolic murmur heard in the apex ( could not hear a blowing pansystolic murmur) RESPIRATORY: Mild accessory muscle use. Bilateral wheezing. Breath sounds diminished right side GASTROINTESTINAL: Abdomen soft, non-tender, nondistended. Hepatic and splenic margins not palpable. MUSCULOSKELETAL: Status post right AKA NEUROLOGICAL: Awake and alert. Motor grossly within normal limits. No focal deficits A/P Assessment and Plan IMPRESSION: Acute hypoxemic respiratory failure Healthcare associated pneumonia Septic shock-resolved COPD exacerbation Elevated troponin Lactic acidosis Leukocytosis Acute kidney insufficiency Severe hyperglycemia Severe MR Ischemic cardiomyopathy Coronary artery disease status post CABG Poorly controlled diabetes Chronic pain and neuropathy h/o GERD PLAN: Neuro: Continue when necessary home [place] for pain (home medication)\ Continue Lyrica and nortriptyline Cardiovascular: Continue IV Lasix 20 mg q12 Continue aspirin Plavix Coreg and HUMBLE inhibitor as along with statin Continue to hold Norvasc Dr. Walker consulted for elevated troponin. Recommended continued medical management Recent cardiac cath showed coronary artery disease but nothing amenable to PCI Trend lactic acid Previous echo/YURIY showed severe MR EF 35-40% Pulmonology: BiPAP 15/5 PRN, titrate FiO2 to keep saturation above 90% IV steroids: solumedrol 40 q12 Empirical antibiotics: Zosyn antipseudomonal dose and azithromycin. Vancomycin 1.25 GM 1 on admission Blood culture neg to date Cont scheduled DuoNeb q4h and PRN GI: ADA, heart healthy diet. Famotidine for GI prophylaxis : IV Lasix as above Strict intake output ID: Empirical antibiotics: Zosyn antipseudomonal dose and azithromycin. Vancomycin 1.25 GM 1 given on admission Follow-up on blood and sputum culture Endocrine: On Levemir at increased 20 U q12, with Novolog 5 U AC HS Reduce Levemir to 20 q12 and Novolog to 2 U AC HS Cont levothyroxine DVT GI prophylaxis - Teds SCDs - Subcutaneous Lovenox - Famotidine for GI prophylaxis Level 3 Transfer to [facility] with Tele. Hospitalist to assume care in a.. 08/05/17 Ingrid Navarro MD Aug 04, 2017 12:18
[2017-08-04] MEDS: ENOXAPARIN SODIUM 40 MG/0.4 ML SYRINGE SQ SCH (13:05)
[2017-08-04] MEDS: ATORVASTATIN 80 MG TAB PO SCH (21:22)
[2017-08-04] MEDS: NORTRIPTYLINE HCL 25 MG CAP PO SCH (21:22)
[2017-08-05] VITALS (12 sets, daily range): BP systolic 127–148; BP diastolic 74–85; PULSE 81–94; RESP 14–20; TEMP 97–98.9; O2SAT 95–100
[2017-08-05] MEDS: PIPERACIL-TAZO 4.5 GM PREMIX 100 ML IV SCH ×5 (00:09→23:22)
[2017-08-05] MEDS: ACETAMINOPHEN/HYDROcodone 325 MG/10 MG TAB PO SCH ×5 (00:09→23:23)
[2017-08-05] MEDS: RESP: ALBUTEROL 2.5 MG/IPRATROPIUM 0.5 MG NEB (SCH) NEB ×4 (03:03→22:31)
--- NOTE | 2017-08-05 03:12 | RADRPT ---
EXAM DATE/TIME: 08/05/2017 02:35 [facility] COMPARISON: CHEST SINGLE AP, August 04, 2017, 3:24. INDICATIONS : Shortness of breath, possible pulmonary disease. MEDICAL HISTORY : Hypertension. Diabetes mellitus type II. Myocardial infarction. PVD CAD SURGICAL HISTORY : CABG. ENCOUNTER: Subsequent ACUITY: 4 - 6 days PAIN SCORE: Non-responsive. LOCATION: Bilateral chest FINDINGS: Stable right lower lobe airspace disease with associated small right pleural effusion. Stable small l eft lower lobe airspace disease and likely trace pleural effusion. Continued mild diffuse interstitia l prominence. Cardiomediastinal contours are within normal limits. Remainder the exam is unchanged. CONCLUSION: 1. No significant interval change. 2. Stable right lower lobe air space consolidation and small right pleural effusion. 3. Stable mild left lower lobe airspace disease with trace associated effusion. Varun De Paz MD on August 05, 2017 at 3:09 Board Certified Radiologist. This report was verified electronically.
[2017-08-05] MEDS: CHLORHEXIDINE GLUCONATE 2 % 1 PACK (2 CLOTHS) TOP SCH (03:48)
[2017-08-05 06:12] LABS: AUTOMATED NEUTROPHIL # 11.7 TH/MM3 (1.8-7.7); BASOPHIL % 0.2 % (0.0-2.0); HEMATOCRIT 29.2 % (39.0-51.0); HEMOGLOBIN 9.2 GM/DL (13.0-17.0); LYMPH % 6.1 % (9.0-44.0); LYMPHOCYTE # 0.8 TH/MM3 (1.0-4.8); MEAN CELL VOLUME 80.2 FL (80.0-100.0); MEAN CORPUSCULAR HEMOGLOBIN 25.3 PG (27.0-34.0); MEAN CORPUSCULAR HGB CONC 31.5 % (32.0-36.0); MEAN PLATELET VOLUME 9.4 FL (7.0-11.0); MONO % 2.9 % (0.0-8.0); MONOCYTE # 0.4 TH/MM3 (0-0.9); NEUT % 90.8 % (16.0-70.0); PLATELET COUNT 185 TH/MM3 (150-450); RED BLOOD COUNT 3.64 MIL/MM3 (4.50-5.90); RED CELL DISTRIBUTION WIDTH 18.9 % (11.6-17.2); WHITE BLOOD COUNT 12.9 TH/MM3 (4.0-11.0)
[2017-08-05] MEDS: LEVOTHYROXINE SODIUM 100 MCG TAB PO SCH (06:32)
[2017-08-05] MEDS: ISOSORBIDE MONONITRATE 60 MG TAB PO SCH (06:32)
[2017-08-05 06:39] LABS: ALBUMIN 2.3 GM/DL (3.4-5.0); AST (GOT) 12 U/L (15-37); BICARBONATE 22.7 MEQ/L (21.0-32.0); BLOOD UREA NITROGEN 36 MG/DL (7-18); CALCIUM 7.7 MG/DL (8.5-10.1); CHLORIDE 105 MEQ/L (98-107); CREATININE 1.13 MG/DL (0.60-1.30); GLOMERULAR FILTRATION RATE 66 ML/MIN (>89); GLUCOSE,RANDOM 233 MG/DL (74-106); MAGNESIUM 2.1 MG/DL (1.5-2.5); SODIUM (NA) 137 MEQ/L (136-145)
[2017-08-05 06:42] LABS: ALKALINE PHOSPHATASE 99 U/L (45-117); ALT (GPT) 23 U/L (12-78); TOTAL BILIRUBIN ADULT 0.3 MG/DL (0.2-1.0); TOTAL PROTEIN 5.8 GM/DL (6.4-8.2)
[2017-08-05] MEDS: MEDIUM DOSE INSULIN NOVOLOG SUPPLEMENTAL SCALE SQ SCH ×4 (08:00→21:32)
[2017-08-05] MEDS: CHLORHEXIDINE 0.12% (ORAL KIT) 15 ML CUP MT SCH ×2 (08:00→20:00)
[2017-08-05] MEDS: INSULIN ASPART 1,000 UNITS/10 ML VIAL SQ SCH ×3 (08:00→17:00)
[2017-08-05] MEDS: LISINOPRIL 5 MG TAB PO SCH (08:16)
[2017-08-05] MEDS: CARVEDILOL 6.25 MG TAB PO SCH ×2 (08:16→21:30)
[2017-08-05] MEDS: AZITHROMYCIN INJ 500 MG in SODIUM CHLOR 0.9% 250 ML INJ 250 ML IV SCH (08:16)
[2017-08-05] MEDS: CYANOCOBALAMIN 1,000 MCG TAB PO SCH (08:16)
[2017-08-05] MEDS: PREGABALIN 100 MG CAP PO SCH ×3 (08:17→16:44)
[2017-08-05] MEDS: FUROSEMIDE 20 MG/2 ML VIAL IV PUSH SCH ×2 (08:17→16:44)
[2017-08-05] MEDS: ASPIRIN EC 81 MG TABEC PO SCH (08:17)
[2017-08-05] MEDS: methylPREDNISolone SOD SUCC 40 MG/1 ML VIAL IV PUSH SCH ×2 (08:17→21:30)
[2017-08-05] MEDS: FAMOTIDINE 20 MG/2 ML VIAL IV PUSH SCH ×2 (08:17→21:30)
[2017-08-05] MEDS: SODIUM CHLORIDE 0.9% FLUSH 10 ML FLUSH IV FLUSH SCH ×2 (08:18→21:29)
[2017-08-05] MEDS: CLOPIDOGREL 75 MG TAB PO SCH (08:20)
[2017-08-05] MEDS: INSULIN DETEMIR 100 UNITS/ML VIAL SQ SCH ×2 (08:20→21:31)
[2017-08-05] MEDS: ENOXAPARIN SODIUM 40 MG/0.4 ML SYRINGE SQ SCH (11:49)
--- NOTE | 2017-08-05 14:58 | HHI.CCPN ---
Subjective Remarks/Hospital Course Patient is a 62-year-old male with past medical history significant for COPD, coronary artery disease status post CABG, cardiomyopathy EF 35-40%, severe mitral regurgitation (apparently told by CT surgeon not a candidate for surgery, per the patient), type 2 diabetes, hypertension, who was brought to the emergency department by EMS for shortness of breath and severe wheezing. Given IV sedative Medrol 125 mg and breathing treatment by EMS. In the ER BiPAP was initiated due to persistent shortness of breath. Chest x-ray shows a right lower lobe pneumonia interstitial changes bilaterally. ER physician administered IV ceftriaxone I have started the patient on IV Zosyn and azithromycin. Because of the history of COPD have also started him on IV Solu- Medrol and DuoNeb breathing treatments. Blood and sputum cultures will be sent. Patient is septic with a white count of 18.7 and lactic acid 7. 2 L normal saline boluses ordered. BUN is 22 with creatinine of 1.33. Initial blood sugar was 492 and I have started patient on IV insulin per ICU protocol I evaluated the patient in the ICU. Patient is currently on BiPAP oxygen saturation is below 90% on 60% FiO2. He is still dyspneic but improving subjectively. Follow-up chest x-ray in a.m. Serial lactic acid will be checked. Patient has history of severe mitral regurgitation. His EF was 35-40 % which is an overestimation due to mitral regurgitation. Actually we may be close to 15-20% and for that reason patient was deemed not a candidate for valve replacement SUBJ 08/03: Remains on insulin but breathing improved. Currently on nasal cannula with adequate oxygen saturation. Troponin peaked at 1.07. Dr. Walker recommended medical management. Recent cath-CAD with no lesions amenable to PCI. Start IV Lasix due to increasing pleural effusion especially right 08/04: Intubated sedated in bed breathing more comfortably. Transition to subcutaneous insulin but hyperglycemic in a.m. Will reduce Levemir dose to 12 U q12 with continued pre meal insulin. UO remains adequate 08/05: Clinically improved sitting up in chair breathing comfortably. Chest x- ray shows stable right lower lobe consolidation. Discussed with CTS Dr. Bhatia. He will contact . [facility] tomorrow for possible mitral valve clip. Patient is deemed a poor candidate for mitral valve replacement or repair Objective Vital Signs Date Time Temp Pulse Resp B/P (MAP) Pulse Ox O2 Delivery O2 Flow Rate FiO2 08/05/17 12:50 25 08/05/17 12:00 98.1 82 130/75 (93) 100 08/05/17 07:30 Nasal Cannula 6.00 08/05/17 03:04 55 Intake and Output 08/05/17 08/05/17 08/06/17 08:00 16:00 00:00 Intake Total 580 ml 350 ml Output Total 1000 ml Balance -420 ml 350 ml Result Diagram: 08/05/1744408/05/17444 Imaging Chest x-ray shows right lower lobe pneumonia and bilateral interstitial infiltrates Objective Remarks GENERAL: Well-developed male patient currently sitting up in chair. On NC SKIN: Skin warm. HEAD: Atraumatic. Normocephalic. EYES: Pupils equal and round. ENT: No nasal bleeding or discharge. NECK: Trachea midline.supple. CARDIOVASCULAR: Heart rate is distant. Mild systolic murmur heard in the apex ( could not hear a blowing pansystolic murmur) RESPIRATORY: Mild accessory muscle use. Mild wheezing. Breath sounds diminished right side GASTROINTESTINAL: Abdomen soft, non-tender, nondistended. MUSCULOSKELETAL: Status post right AKA NEUROLOGICAL: Awake and alert. Motor grossly within normal limits. No focal deficits Urinary Catheter: Yes Assessment to: Continue A/P Assessment and Plan IMPRESSION: Acute hypoxemic respiratory failure Healthcare associated pneumonia Septic shock-resolved COPD exacerbation Elevated troponin Lactic acidosis Leukocytosis Acute kidney insufficiency Severe hyperglycemia Severe MR Ischemic cardiomyopathy Coronary artery disease status post CABG Poorly controlled diabetes Chronic pain and neuropathy h/o GERD PLAN: Neuro: Continue when necessary home [place] for pain (home medication)\ Continue Lyrica and nortriptyline Cardiovascular: Continue IV Lasix 20 mg q12 Continue aspirin Plavix Coreg and HUMBLE inhibitor as along with statin Continue to hold Norvasc Dr. Walker consulted for elevated troponin. Recommended continued medical management CTS Dr. Bhatia consulted for severe MR. He will discuss withlila López re: MV clipping Patient is a poor candidate for mitral valve repair or replacement Recent cardiac cath showed coronary artery disease but nothing amenable to PCI Previous echo/YURIY showed severe MR EF 35-40% Pulmonology: Titrate FiO2 to keep saturation above 90%. BiPAP 15/5 PRN IV steroids: solumedrol 40 [id number] to 20 q12 Empirical antibiotics: Zosyn antipseudomonal dose and azithromycin. Vancomycin 1.25 GM 1 on admission Blood culture neg to date Cont scheduled DuoNeb q4h and PRN GI: ADA, heart healthy diet. Famotidine for GI prophylaxis : IV Lasix as above Strict intake output ID: Empirical antibiotics: Zosyn antipseudomonal dose and azithromycin. Vancomycin 1.25 GM 1 given on admission Follow-up on blood and sputum culture Endocrine: Increase Levemir to 15 q12 and continue pre-meal Novolog to 2 U AC HS Continue additional sliding-scale with NovoLog Cont levothyroxine DVT GI prophylaxis - Teds SCDs - Subcutaneous Lovenox - Famotidine for GI prophylaxis Level 2 Transfer to Med Surg with Tele. Hospitalist to assume care in a.m. 08/05/17 Ingrid Navarro MD Aug 05, 2017 14:58
[2017-08-05] MEDS: ATORVASTATIN 80 MG TAB PO SCH (21:30)
[2017-08-05] MEDS: NORTRIPTYLINE HCL 25 MG CAP PO SCH (21:31)
[2017-08-05] MEDS ORDERED: ACETAMINOPHEN/HYDROcodone 325 MG/10 MG TAB PO PRN (22:15)
[2017-08-06] VITALS (11 sets, daily range): BP systolic 112–160; BP diastolic 66–87; PULSE 77–103; RESP 20–21; TEMP 97.7–98.7; O2SAT 95–98
[2017-08-06] MEDS: RESP: ALBUTEROL 2.5 MG/IPRATROPIUM 0.5 MG NEB (SCH) NEB ×4 (02:45→21:18)
[2017-08-06] MEDS: CHLORHEXIDINE GLUCONATE 2 % 1 PACK (2 CLOTHS) TOP SCH (03:43)
[2017-08-06] MEDS: ISOSORBIDE MONONITRATE 60 MG TAB PO SCH (06:06)
[2017-08-06] MEDS: LEVOTHYROXINE SODIUM 100 MCG TAB PO SCH (06:06)
[2017-08-06] MEDS: ACETAMINOPHEN/HYDROcodone 325 MG/10 MG TAB PO SCH ×4 (06:06→23:55)
[2017-08-06] MEDS: PIPERACIL-TAZO 4.5 GM PREMIX 100 ML IV SCH ×4 (06:51→23:55)
[2017-08-06] MEDS: INSULIN ASPART 1,000 UNITS/10 ML VIAL SQ SCH ×3 (08:00→18:24)
[2017-08-06] MEDS: CHLORHEXIDINE 0.12% (ORAL KIT) 15 ML CUP MT SCH ×2 (08:00→20:00)
[2017-08-06] MEDS: CARVEDILOL 6.25 MG TAB PO SCH ×2 (09:35→21:22)
[2017-08-06] MEDS: LISINOPRIL 5 MG TAB PO SCH (09:36)
[2017-08-06] MEDS: ASPIRIN EC 81 MG TABEC PO SCH (09:36)
[2017-08-06] MEDS: CLOPIDOGREL 75 MG TAB PO SCH (09:37)
[2017-08-06] MEDS: CYANOCOBALAMIN 1,000 MCG TAB PO SCH (09:37)
[2017-08-06] MEDS: INSULIN DETEMIR 100 UNITS/ML VIAL SQ SCH ×2 (09:38→21:22)
[2017-08-06] MEDS: MEDIUM DOSE INSULIN NOVOLOG SUPPLEMENTAL SCALE SQ SCH ×4 (09:40→21:23)
[2017-08-06] MEDS: SODIUM CHLORIDE 0.9% FLUSH 10 ML FLUSH IV FLUSH SCH ×2 (09:41→21:21)
[2017-08-06] MEDS: FAMOTIDINE 20 MG/2 ML VIAL IV PUSH SCH ×2 (09:42→21:21)
[2017-08-06] MEDS: methylPREDNISolone SOD SUCC 40 MG/1 ML VIAL IV PUSH SCH ×2 (09:42→21:22)
[2017-08-06] MEDS: FUROSEMIDE 20 MG/2 ML VIAL IV PUSH SCH ×2 (09:43→18:25)
[2017-08-06] MEDS: AZITHROMYCIN INJ 500 MG in SODIUM CHLOR 0.9% 250 ML INJ 250 ML IV SCH (09:45)
[2017-08-06] MEDS: PREGABALIN 100 MG CAP PO SCH ×2 (13:00→18:26)
[2017-08-06] MEDS: ENOXAPARIN SODIUM 40 MG/0.4 ML SYRINGE SQ SCH (13:06)
--- NOTE | 2017-08-06 15:57 | HHI.PR ---
Subjective Remarks Patient sitting on the edge of the bed eating his lunch Reported no cough is on O2 nasal cannula he has a right AKA Objective Vitals Vital Signs Date Time Temp Pulse Resp B/P (MAP) Pulse Ox O2 Delivery O2 Flow Rate FiO2 08/06/17 12:46 Nasal Cannula 2.00 08/06/17 08:00 97.8 99 20 156/84 (108) 97 08/06/17 04:05 88 08/06/17 04:00 97.7 85 20 129/76 (93) 98 08/06/17 04:00 Nasal Cannula 2.00 08/06/17 00:23 85 08/06/17 00:00 Nasal Cannula 2.00 08/06/17 00:00 98.7 80 21 128/69 (88) 98 08/05/17 22:47 Nasal Cannula 3.00 08/05/17 20:10 87 08/05/17 20:00 Nasal Cannula 2.00 08/05/17 20:00 98.8 94 20 143/81 (101) 99 08/05/17 17:44 15 08/05/17 17:44 15 08/05/17 16:00 98.2 81 15 133/74 (93) 100 I/O 08/05/17 08/05/17 08/05/17 08/06/17 08/06/17 08/06/17 07:00 15:00 23:00 07:00 15:00 23:00 Intake Total 580 ml 350 ml 1150 ml 240 ml Output Total 1000 ml 1800 ml 1000 ml Balance -420 ml 350 ml -650 ml -760 ml Intake Oral 480 ml 1050 ml 240 ml IV Total 100 ml 350 ml 100 ml Output Urine Total 1000 ml 1800 ml 1000 ml # Bowel Movements 0 0 Result Diagram: 08/05/1744408/05/17444 Objective Remarks GENERAL: This is a well-nourished, well-developed patient, in no apparent distress. SKIN: No rashes, warm and dry HEAD: Atraumatic. Normocephalic. EYES: Pupils equal round and reactive. Extraocular motions intact. No scleral icterus. ENT: Nose without bleeding, or drainage, Airway patent. NECK: Trachea midline. Supple CARDIOVASCULAR: Regular rate and rhythm without murmurs, gallops, or rubs. RESPIRATORY: Decreased breath sounds bilaterally GASTROINTESTINAL: Abdomen soft, non-tender, nondistended. Positive bowel sounds MUSCULOSKELETAL: Right AKA, left lower extremity no edema NEUROLOGICAL: Awake and alert. Moves all extremity. Normal speech.no focal neurological deficit A/P Problem List: (1) Severe sepsis ICD Code: A41.9 - Sepsis, unspecified organism; R65.20 - Severe sepsis without septic shock Status: Acute (2) RLL pneumonia ICD Code: J18.1 - Lobar pneumonia, unspecified organism (3) Acute hypoxemic respiratory failure ICD Code: J96.01 - Acute respiratory failure with hypoxia (4) Lactic acidemia ICD Code: E87.2 - Acidosis (5) Severe hyperglycemia (6) Type 2 diabetes mellitus ICD Code: E11.9 - Type 2 diabetes mellitus Status: Chronic (7) Hypertension, benign ICD Code: I10 - Benign hypertension Status: Chronic (8) Hypothyroidism ICD Code: E03.9 - Hypothyroidism Status: Chronic (9) Diabetic neuropathy ICD Code: E11.40 - Diabetic neuropathy Status: Chronic (10) Chronic systolic heart failure ICD Code: I50.22 - Chronic systolic (congestive) heart failure (11) Severe mitral regurgitation ICD Code: I34.0 - Nonrheumatic mitral (valve) insufficiency Status: Chronic Assessment and Plan 08/06: Still with good urine output, continue Lasix plan to switch to by mouth, monitor BMP, cardiovascular surgery to follow for possible transfer to [facility] for mitral valve repair A/P: Acute hypoxemic respiratory failure Healthcare associated pneumonia Septic shock-resolved COPD exacerbation Elevated troponin Lactic acidosis Leukocytosis Acute kidney insufficiency Severe hyperglycemia Severe MR Ischemic cardiomyopathy Coronary artery disease status post CABG Poorly controlled diabetes Chronic pain and neuropathy h/o GERD PLAN: Neuro: Continue when necessary home [place] for pain (home medication)\ Continue Lyrica and nortriptyline Cardiovascular: Continue IV Lasix 20 mg q12 Continue aspirin Plavix Coreg and HUMBLE inhibitor as along with statin Continue to hold Norvasc Dr. Walker consulted for elevated troponin. Recommended continued medical management CTS Dr. Bhatia consulted for severe MR. [facility] Patient is a poor candidate for mitral valve repair or replacement Recent cardiac cath showed coronary artery disease but nothing amenable to PCI Previous echo/YURIY showed severe MR EF 35-40% Pulmonology: Titrate FiO2 to keep saturation above 90%. BiPAP 15/5 PRN IV steroids: solumedrol 40 [id number] to 20 q12 Empirical antibiotics: Zosyn antipseudomonal dose and azithromycin. Vancomycin 1.25 GM 1 on admission Blood culture neg to date Cont scheduled DuoNeb q4h and PRN GI: ADA, heart healthy diet. Famotidine for GI prophylaxis : IV Lasix as above Strict intake output ID: Empirical antibiotics: Zosyn antipseudomonal dose and azithromycin. Vancomycin 1.25 GM 1 given on admission Follow-up on blood and sputum culture Endocrine: Increase Levemir to 15 q12 and continue pre-meal Novolog to 2 U AC HS Continue additional sliding-scale with NovoLog Cont levothyroxine DVT GI prophylaxis - Teds SCDs - Subcutaneous Lovenox - Famotidine for GI prophylaxis Problem Qualifiers (1) RLL pneumonia: Qualified Codes: J18.1 - Lobar pneumonia, unspecified organism (2) Type 2 diabetes mellitus: Brianna Sierra MD Aug 06, 2017 15:57
[2017-08-06] MEDS: NORTRIPTYLINE HCL 25 MG CAP PO SCH (21:21)
[2017-08-06] MEDS: ATORVASTATIN 80 MG TAB PO SCH (21:22)
[2017-08-07] VITALS (11 sets, daily range): BP systolic 118–161; BP diastolic 73–85; PULSE 83–97; RESP 16–21; TEMP 96.8–98.3; O2SAT 95–98
[2017-08-07] MEDS: CHLORHEXIDINE GLUCONATE 2 % 1 PACK (2 CLOTHS) TOP SCH (03:50)
[2017-08-07] MEDS: RESP: ALBUTEROL 2.5 MG/IPRATROPIUM 0.5 MG NEB (SCH) NEB ×4 (04:59→21:11)
[2017-08-07] MEDS: PIPERACIL-TAZO 4.5 GM PREMIX 100 ML IV SCH ×2 (06:04→11:46)
[2017-08-07] MEDS: ISOSORBIDE MONONITRATE 60 MG TAB PO SCH (06:04)
[2017-08-07] MEDS: ACETAMINOPHEN/HYDROcodone 325 MG/10 MG TAB PO SCH ×4 (06:04→23:46)
[2017-08-07] MEDS: LEVOTHYROXINE SODIUM 100 MCG TAB PO SCH (06:04)
[2017-08-07] MEDS: CHLORHEXIDINE 0.12% (ORAL KIT) 15 ML CUP MT SCH ×2 (07:37→20:00)
[2017-08-07] MEDS: methylPREDNISolone SOD SUCC 40 MG/1 ML VIAL IV PUSH SCH (07:59)
[2017-08-07] MEDS: PREGABALIN 100 MG CAP PO SCH ×3 (08:00→18:01)
[2017-08-07] MEDS: ASPIRIN EC 81 MG TABEC PO SCH (08:00)
[2017-08-07] MEDS: CYANOCOBALAMIN 1,000 MCG TAB PO SCH (08:00)
[2017-08-07] MEDS: MEDIUM DOSE INSULIN NOVOLOG SUPPLEMENTAL SCALE SQ SCH ×4 (08:00→21:36)
[2017-08-07] MEDS: INSULIN ASPART 1,000 UNITS/10 ML VIAL SQ SCH ×3 (08:00→17:00)
[2017-08-07] MEDS: CLOPIDOGREL 75 MG TAB PO SCH (08:00)
[2017-08-07] MEDS: FUROSEMIDE 20 MG/2 ML VIAL IV PUSH SCH (08:00)
[2017-08-07] MEDS: FAMOTIDINE 20 MG/2 ML VIAL IV PUSH SCH ×2 (08:00→21:35)
[2017-08-07] MEDS: CARVEDILOL 6.25 MG TAB PO SCH ×2 (08:01→21:35)
[2017-08-07] MEDS: SODIUM CHLORIDE 0.9% FLUSH 10 ML FLUSH IV FLUSH SCH ×2 (08:01→21:35)
[2017-08-07] MEDS: LISINOPRIL 5 MG TAB PO SCH (08:01)
[2017-08-07] MEDS: INSULIN DETEMIR 100 UNITS/ML VIAL SQ SCH ×2 (08:15→21:36)
[2017-08-07 08:35] LABS: AUTOMATED NEUTROPHIL # 9.5 TH/MM3 (1.8-7.7); BASOPHIL % 0.2 % (0.0-2.0); EOSINOPHIL # 0.1 TH/MM3 (0-0.4); EOSINOPHIL % 0.5 % (0.0-4.0); HEMATOCRIT 32.3 % (39.0-51.0); HEMOGLOBIN 10.2 GM/DL (13.0-17.0); LYMPH % 20.1 % (9.0-44.0); LYMPHOCYTE # 2.6 TH/MM3 (1.0-4.8); MEAN CELL VOLUME 78.7 FL (80.0-100.0); MEAN CORPUSCULAR HEMOGLOBIN 24.9 PG (27.0-34.0); MEAN CORPUSCULAR HGB CONC 31.6 % (32.0-36.0); MEAN PLATELET VOLUME 9.1 FL (7.0-11.0); MONO % 5.3 % (0.0-8.0); MONOCYTE # 0.7 TH/MM3 (0-0.9); NEUT % 73.9 % (16.0-70.0); PLATELET COUNT 225 TH/MM3 (150-450); RED BLOOD COUNT 4.11 MIL/MM3 (4.50-5.90); RED CELL DISTRIBUTION WIDTH 18.7 % (11.6-17.2); WHITE BLOOD COUNT 12.9 TH/MM3 (4.0-11.0)
[2017-08-07 08:59] LABS: BICARBONATE 29.2 MEQ/L (21.0-32.0); CALCIUM 8.7 MG/DL (8.5-10.1); CREATININE 0.97 MG/DL (0.60-1.30)
[2017-08-07] MEDS: AZITHROMYCIN INJ 500 MG in SODIUM CHLOR 0.9% 250 ML INJ 250 ML IV SCH (10:28)
[2017-08-07] MEDS: ENOXAPARIN SODIUM 40 MG/0.4 ML SYRINGE SQ SCH (11:46)
[2017-08-07] MEDS: LEVOFLOXACIN 750 MG TAB PO SCH (13:54)
[2017-08-07] MEDS: FUROSEMIDE 20 MG TAB PO SCH (18:01)
[2017-08-07] MEDS: NORTRIPTYLINE HCL 25 MG CAP PO SCH (21:34)
[2017-08-07] MEDS: ATORVASTATIN 80 MG TAB PO SCH (21:34)
--- NOTE | 2017-08-07 21:41 | HHI.PR ---
Subjective Remarks this is a transfer from the ICU, severe MR, diabetes mellitus uncontrolled, right lower lobe pneumonia and respiratory failure patient was found to be not candidateFor surgery for his MR He is walking around with a walker feeling stable I discussed with him medical management as another option and the need to be compliant with no salt diet and his medication regimen, patient is in agreement Objective Vitals Vital Signs Date Time Temp Pulse Resp B/P (MAP) Pulse Ox O2 Delivery O2 Flow Rate FiO2 08/07/17 16:00 97.5 93 20 161/80 (107) 95 08/07/17 15:49 96 21 08/07/17 15:00 86 08/07/17 08:41 96 08/07/17 08:00 98.3 88 20 150/81 (104) 97 08/07/17 08:00 88 08/07/17 07:00 94 Room Air 08/07/17 05:01 98 08/07/17 04:00 Nasal Cannula 2.00 08/07/17 04:00 96.8 97 20 131/85 (100) 98 08/07/17 03:41 83 08/07/17 00:00 Nasal Cannula 2.00 08/07/17 00:00 97.4 86 16 118/73 (88) 97 08/06/17 23:39 94 I/O 08/06/17 08/06/17 08/06/17 08/07/17 08/07/17 08/07/17 07:00 15:00 23:00 07:00 15:00 23:00 Intake Total 340 ml 100 ml 840 ml 1050 ml 960 ml Output Total 1000 ml 600 ml Balance -660 ml 100 ml 840 ml 450 ml 960 ml Intake Oral 240 ml 840 ml 850 ml 960 ml IV Total 100 ml 100 ml 200 ml Output Urine Total 1000 ml 600 ml # Voids 3 3 # Bowel Movements 3 1 Result Diagram: 08/07/1730 08/07/17 0730 Objective Remarks GENERAL: This is a well-nourished, well-developed patient, in no apparent distress. SKIN: No rashes, warm and dry HEAD: Atraumatic. Normocephalic. EYES: Pupils equal round and reactive. Extraocular motions intact. No scleral icterus. ENT: Nose without bleeding, or drainage, Airway patent. NECK: Trachea midline. Supple CARDIOVASCULAR: Regular rate and rhythm without murmurs, gallops, or rubs. RESPIRATORY: Decreased breath sounds bilaterally GASTROINTESTINAL: Abdomen soft, non-tender, nondistended. Positive bowel sounds MUSCULOSKELETAL: Right AKA, left lower extremity no edema NEUROLOGICAL: Awake and alert. Moves all extremity. Normal speech.no focal neurological deficit A/P Problem List: (1) Severe sepsis ICD Code: A41.9 - Sepsis, unspecified organism; R65.20 - Severe sepsis without septic shock Status: Acute (2) RLL pneumonia ICD Code: J18.1 - Lobar pneumonia, unspecified organism (3) Acute hypoxemic respiratory failure ICD Code: J96.01 - Acute respiratory failure with hypoxia (4) Lactic acidemia ICD Code: E87.2 - Acidosis (5) Severe hyperglycemia (6) Type 2 diabetes mellitus ICD Code: E11.9 - Type 2 diabetes mellitus Status: Chronic (7) Hypertension, benign ICD Code: I10 - Benign hypertension Status: Chronic (8) Hypothyroidism ICD Code: E03.9 - Hypothyroidism Status: Chronic (9) Diabetic neuropathy ICD Code: E11.40 - Diabetic neuropathy Status: Chronic (10) Chronic systolic heart failure ICD Code: I50.22 - Chronic systolic (congestive) heart failure (11) Severe mitral regurgitation ICD Code: I34.0 - Nonrheumatic mitral (valve) insufficiency Status: Chronic Assessment and Plan 08/06: Still with good urine output, continue Lasix plan to switch to by mouth, monitor BMP, cardiovascular surgery to follow for possible transfer to [facility] for mitral valve repair 08/07: blood sugars still uncontrolled increase Levemir to 22 units twice a day, will switch IV atibiotc to Levaquin, change Solu Medrol to prednisone, and change Lasix IV to by mouth, monitor clinically, discussed with the nurse, the plan was for Dr. Gutierres to work on transferring patient to [facility] for MRA. However I was told he decided patient is not a candidate for surgery so for now the plan is for medical management A/P: Acute hypoxemic respiratory failure Healthcare associated pneumonia Septic shock-resolved COPD exacerbation Elevated troponin Lactic acidosis Leukocytosis Acute kidney insufficiency Severe hyperglycemia Severe MR Ischemic cardiomyopathy Coronary artery disease status post CABG Poorly controlled diabetes Chronic pain and neuropathy h/o GERD PLAN: Neuro: Continue when necessary home [place] for pain (home medication)\ Continue Lyrica and nortriptyline Cardiovascular: Continue IV Lasix 20 mg q12 Continue aspirin Plavix Coreg and HUMBLE inhibitor as along with statin Continue to hold Norvasc Dr. Walker consulted for elevated troponin. Recommended continued medical management CTS Dr. Bhatia consulted for severe MR. He will discuss withlila López re: MV clipping Patient is a poor candidate for mitral valve repair or replacement Recent cardiac cath showed coronary artery disease but nothing amenable to PCI Previous echo/YURIY showed severe MR EF 35-40% Pulmonology: Titrate FiO2 to keep saturation above 90%. BiPAP 15/5 PRN IV steroids: solumedrol 40 [id number] to 20 q12 Empirical antibiotics: Zosyn antipseudomonal dose and azithromycin. Vancomycin 1.25 GM 1 on admission Blood culture neg to date Cont scheduled DuoNeb q4h and PRN GI: ADA, heart healthy diet. Famotidine for GI prophylaxis : IV Lasix as above Strict intake output ID: Empirical antibiotics: Zosyn antipseudomonal dose and azithromycin. Vancomycin 1.25 GM 1 given on admission Follow-up on blood and sputum culture Endocrine: Increase Levemir to 15 q12 and continue pre-meal Novolog to 2 U AC HS Continue additional sliding-scale with NovoLog Cont levothyroxine DVT GI prophylaxis - Teds SCDs - Subcutaneous Lovenox - Famotidine for GI prophylaxis Discharge Planning it's cleared by other specialist, and doing well on by mouth meds including diuretic, blood sugar controlled, patient may need home health will rehabilitation depending on PT final assessment Problem Qualifiers (1) RLL pneumonia: Qualified Codes: J18.1 - Lobar pneumonia, unspecified organism (2) Type 2 diabetes mellitus: Brianna Sierra MD Aug 07, 2017 21:41
[2017-08-08] VITALS: BP 137/71; PULSE 81; PULSE 82; RESP 19; TEMP 97.5; O2SAT 97
[2017-08-08] MEDS: CHLORHEXIDINE GLUCONATE 2 % 1 PACK (2 CLOTHS) TOP SCH (02:42)
[2017-08-08 03:42] VITALS: PULSE 80
[2017-08-08 04:00] VITALS: BP 125/74; PULSE 80; RESP 18; TEMP 98.4; O2SAT 97
[2017-08-08] MEDS: RESP: ALBUTEROL 2.5 MG/IPRATROPIUM 0.5 MG NEB (SCH) NEB ×2 (04:10→08:33)
[2017-08-08] MEDS: LEVOTHYROXINE SODIUM 100 MCG TAB PO SCH (05:19)
[2017-08-08] MEDS: ACETAMINOPHEN/HYDROcodone 325 MG/10 MG TAB PO SCH ×2 (05:19→12:20)
[2017-08-08] MEDS: ISOSORBIDE MONONITRATE 60 MG TAB PO SCH (05:19)
[2017-08-08] MEDS: MEDIUM DOSE INSULIN NOVOLOG SUPPLEMENTAL SCALE SQ SCH ×2 (07:49→12:00)
[2017-08-08] MEDS: CARVEDILOL 6.25 MG TAB PO SCH (07:50)
[2017-08-08] MEDS: CLOPIDOGREL 75 MG TAB PO SCH (07:50)
[2017-08-08] MEDS: FUROSEMIDE 20 MG TAB PO SCH (07:51)
[2017-08-08] MEDS: CYANOCOBALAMIN 1,000 MCG TAB PO SCH (07:52)
[2017-08-08] MEDS: PREGABALIN 100 MG CAP PO SCH ×2 (07:52→12:19)
[2017-08-08] MEDS: LISINOPRIL 5 MG TAB PO SCH (07:52)
[2017-08-08] MEDS: ASPIRIN EC 81 MG TABEC PO SCH (07:52)
[2017-08-08] MEDS: FAMOTIDINE 20 MG/2 ML VIAL IV PUSH SCH (07:53)
[2017-08-08] MEDS: SODIUM CHLORIDE 0.9% FLUSH 10 ML FLUSH IV FLUSH SCH (07:53)
[2017-08-08] MEDS: INSULIN ASPART 1,000 UNITS/10 ML VIAL SQ SCH ×2 (07:54→12:21)
[2017-08-08] MEDS: CHLORHEXIDINE 0.12% (ORAL KIT) 15 ML CUP MT SCH (07:54)
[2017-08-08] MEDS: INSULIN DETEMIR 100 UNITS/ML VIAL SQ SCH (07:54)
[2017-08-08 08:00] VITALS: BP 161/99; PULSE 97; RESP 20; TEMP 98.3; O2SAT 99
[2017-08-08 08:13] VITALS: PULSE 95
--- NOTE | 2017-08-08 08:50 | HHI.PR ---
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 Given IV sedative Medrol 125 mg and breathing treatment by EMS. In the ER BiPAP was initiated due to persistent shortness of breath. Chest x-ray shows a right lower lobe pneumonia interstitial changes bilaterally. ER physician administered IV ceftriaxone I have started the patient on IV Zosyn and azithromycin. Because of the history of COPD have also started him on IV Solu- Medrol and DuoNeb breathing treatments. Blood and sputum cultures will be sent. Patient is septic with a white count of 18.7 and lactic acid 7. 2 L normal saline boluses ordered. BUN is 22 with creatinine of 1.33. Initial blood sugar was 492 and I have started patient on IV insulin per ICU protocol I evaluated the patient in the ICU. Patient is currently on BiPAP oxygen saturation is below 90% on 60% FiO2. He is still dyspneic but improving subjectively. Follow-up chest x-ray in a.m. Serial lactic acid will be checked. Patient has history of severe mitral regurgitation. His EF was 35-40 % which is an overestimation due to mitral regurgitation. Actually we may be close to 15-20% and for that reason patient was deemed not a candidate for valve replacement SUBJ 08/03: Remains on insulin but breathing improved. Currently on nasal cannula with adequate oxygen saturation. Troponin peaked at 1.07. Dr. Walker recommended medical management. Recent cath-CAD with no lesions amenable to PCI. Start IV Lasix due to increasing pleural effusion especially right 08/04: Intubated sedated in bed breathing more comfortably. Transition to subcutaneous insulin but hyperglycemic in a.m. Will reduce Levemir dose to 12 U q12 with continued pre meal insulin. UO remains adequate 08/05: Clinically improved sitting up in chair breathing comfortably. Chest x- ray shows stable right lower lobe consolidation. Discussed with CTS Dr. Bhatia. He will contact . [facility] tomorrow for possible mitral valve clip. Patient is deemed a poor candidate for mitral valve replacement or repair Hospitalist Notes. Patient transferred from ICU, severe MR, DM II Uncontrolled. Right lower lobe Pneumonia, and respiratory failure Non candidate for surgery for his MR, stable at this time discussed with patient and multidisciplinary meeting he was discussed yesterday with Cardiothoracic surgery and recommended not to go on Surgical management Non candidate as per Doctor Bhatia. the patient will go home and follow with PCP and Cardiology as outpatient. Objective Vital Signs Date Time Temp Pulse Resp B/P (MAP) Pulse Ox O2 Delivery O2 Flow Rate FiO2 08/08/17 04:00 98.4 80 18 125/74 (91) 97 08/08/17 04:00 Room Air 08/08/17 03:42 80 08/08/17 00:45 Room Air 08/08/17 00:00 97.5 82 19 137/71 (93) 97 08/08/17 00:00 81 08/07/17 20:00 Room Air 08/07/17 20:00 97.9 90 21 151/85 (107) 96 08/07/17 20:00 97.9 90 21 151/85 (107) 96 08/07/17 19:50 96 08/07/17 16:00 97.5 93 20 161/80 (107) 95 08/07/17 15:49 96 21 08/07/17 15:00 86 I/O 08/07/17 08/07/17 08/07/17 08/08/17 08/08/17 08/08/17 07:00 15:00 23:00 07:00 15:00 23:00 Intake Total 1050 ml 960 ml Output Total 600 ml 450 ml 250 ml Balance 450 ml 510 ml -250 ml Intake Oral 850 ml 960 ml IV Total 200 ml Output Urine Total 600 ml 450 ml 250 ml # Voids 3 # Bowel Movements 1 0 Result Diagram: 08/07/17 0730 08/07/17 0730 Imaging Last Impressions Chest X-Ray 08/05/17 0600 Signed Impressions: Service Date/Time: Saturday, August 05, 2017 02:35 - CONCLUSION: 1. No significant interval change. 2. Stable right lower lobe air space consolidation and small right pleural effusion. 3. Stable mild left lower lobe airspace disease with trace associated effusion. Varun De Paz MD Procedures None Other Results Laboratory Tests Test 08/02/17 11:08 08/02/17 16:09 08/02/17 18:15 08/03/17 01:02 Blood Gas Puncture Site RT RADIAL Blood Gas Patient Temperature 98.6 Blood Gas HCO3 19 mmol/L Blood Gas Base Excess -4.3 mmol/L Blood Gas Oxygen Saturation 92 % Arterial Blood pH 7.42 Arterial Blood Partial Pressure CO2 30 mmHg Arterial Blood Partial Pressure O2 71 mmHG Arterial Blood Oxygen Content 12.5 Vol % Arterial Blood Carboxyhemoglobin 2.3 % Arterial Blood Methemoglobin 0.4 % Blood Gas Hemoglobin 9.6 G/DL Oxygen Delivery Device BIPAP Blood Gas Ventilator Setting IPAP15/[id number] Blood Gas Inspired Oxygen 50 % Lactic Acid Level 3.9 mmol/L Nasal Screen MRSA (PCR) MRSA NOT DETECTED Protein Corrected Calcium 7.4 MG/DL Test 08/03/17 12:30 08/05/17 04:45 08/07/17 07:30 Troponin I 0.77 NG/ML Blood Urea Nitrogen 36 MG/DL 22 MG/DL Creatinine 1.13 MG/DL 0.97 MG/DL Random Glucose 233 MG/DL 170 MG/DL Total Protein 5.8 GM/DL Albumin 2.3 GM/DL Calcium Level 7.7 MG/DL 8.7 MG/DL Magnesium Level 2.1 MG/DL Alkaline Phosphatase 99 U/L Aspartate Amino Transf (AST/SGOT) 12 U/L Alanine Aminotransferase (ALT/SGPT) 23 U/L Total Bilirubin 0.3 MG/DL Sodium Level 137 MEQ/L 134 MEQ/L Potassium Level 4.6 MEQ/L 3.9 MEQ/L Chloride Level 105 MEQ/L 96 MEQ/L Carbon Dioxide Level 22.7 MEQ/L 29.2 MEQ/L White Blood Count 12.9 TH/MM3 Red Blood Count 4.11 MIL/MM3 Hemoglobin 10.2 GM/DL Hematocrit 32.3 % Mean Corpuscular Volume 78.7 FL Mean Corpuscular Hemoglobin 24.9 PG Mean Corpuscular Hemoglobin Concent 31.6 % Red Cell Distribution Width 18.7 % Platelet Count 225 TH/MM3 Mean Platelet Volume 9.1 FL Neutrophils (%) (Auto) 73.9 % Lymphocytes (%) (Auto) 20.1 % Monocytes (%) (Auto) 5.3 % Eosinophils (%) (Auto) 0.5 % Basophils (%) (Auto) 0.2 % Neutrophils # (Auto) 9.5 TH/MM3 Lymphocytes # (Auto) 2.6 TH/MM3 Monocytes # (Auto) 0.7 TH/MM3 Eosinophils # (Auto) 0.1 TH/MM3 Basophils # (Auto) 0.0 TH/MM3 CBC Comment DIFF FINAL Differential Comment Anion Gap 9 MEQ/L Estimat Glomerular Filtration Rate 79 ML/MIN Objective Remarks GENERAL: This is a well-nourished, well-developed patient, in no apparent distress. SKIN: No rashes, warm and dry HEAD: Atraumatic. Normocephalic. EYES: Pupils equal round and reactive. Extraocular motions intact. No scleral icterus. ENT: Nose without bleeding, or drainage, Airway patent. NECK: Trachea midline. Supple CARDIOVASCULAR: Regular rate and rhythm without murmurs, gallops, or rubs. RESPIRATORY: Decreased breath sounds bilaterally GASTROINTESTINAL: Abdomen soft, non-tender, nondistended. Positive bowel sounds MUSCULOSKELETAL: Right AKA, left lower extremity no edema NEUROLOGICAL: Awake and alert. Moves all extremity. Normal speech.no focal neurological deficit Medications and IVs Current Medications Medications (Trade) Dose Ordered Sig/Nuzhat Route Start Time Stop Time Status Last Admin (Ecotrin Ec) 81 mg DAILY PO 08/03/17 09:00 08/08/17 07:52 (Lipitor) 80 mg HS PO 08/02/17 21:00 08/07/17 21:34 (Coreg) 6.25 mg BID PO 08/02/17 21:00 08/08/17 07:50 (Plavix) 75 mg DAILY PO 08/03/17 09:00 08/08/17 07:50 ([place] 10-325 Mg) 1 tab Q6HR PO 08/02/17 12:00 08/08/17 05:19 (Synthroid) 100 mcg DAILY@06 PO 08/03/17 06:00 08/08/17 05:19 (Prinivil) 5 mg DAILY PO 08/03/17 09:00 08/08/17 07:52 (Pamelor) 75 mg HS PO 08/02/17 21:00 08/07/17 21:34 (Lyrica) 100 mg TID PO 08/02/17 13:00 08/08/17 07:52 (Vitamin B12) 1,000 mcg DAILY PO 08/03/17 09:00 08/08/17 07:52 (NS Flush) 2 ml UNSCH PRN IV FLUSH 08/02/17 10:30 (NS Flush) 2 ml BID IV FLUSH 08/02/17 21:00 08/08/17 07:53 (fentaNYL INJ) 50 mcg Q1H PRN IV PUSH 08/02/17 10:30 08/03/17 16:04 (Duoneb Neb) 1 ampule Q4HR NEB PRN INH 08/02/17 10:30 (Peridex 0.12% Liq) 15 ml BID@08,20 MT 08/02/17 20:00 08/04/17 08:00 (Pepcid Inj) 20 mg Q12HR IV PUSH 08/02/17 21:00 08/08/17 07:53 (Lovenox Inj) 40 mg Q24H SQ 08/02/17 12:00 08/07/17 11:46 Miscellaneous Information 1 Q361D XX 08/02/17 10:30 08/02/17 10:30 (Chlorhexidine 2% Cloth) Taper DAILY@04 TOP 08/03/17 04:00 07/30/18 03:59 08/05/17 03:48 (Chlorhexidine 2% Cloth) 3 pack UNSCH PRN TOP 08/02/17 10:30 (D50w (Vial) Inj) 50 ml UNSCH PRN IV PUSH 08/03/17 02:00 (D50w (Vial) Inj) 50 ml UNSCH PRN IV PUSH 08/03/17 15:45 (Glucagon Inj) 1 mg UNSCH PRN OTHER 08/03/17 15:45 (NovoLOG SUPPLEMENTAL SCALE) 1 ACHS SLIDING SCALE SQ 08/03/17 17:00 08/07/17 21:36 (Imdur) 60 mg DAILY@07 PO 08/05/17 07:00 08/08/17 05:19 (Duoneb Neb) 1 ampule Q6HR NEB NEB 08/04/17 16:00 08/08/17 08:33 (NovoLOG INJ) 2 units TIDAC SQ 08/04/17 17:00 08/08/17 07:54 ([place] 10-325 Mg) 1 tab Q6H PRN PO 08/05/17 22:15 (Levemir Inj) 22 units Q12H SQ 08/07/17 21:00 08/08/17 07:54 (Levaquin) 750 mg Q24H PO 08/07/17 13:00 08/07/17 13:54 (Deltasone) 20 mg DAILY PO 08/08/17 09:00 08/08/17 07:52 (Lasix) 20 mg BID@ PO 08/07/17 18:00 08/08/17 07:51 A/P Assessment and Plan (1) Severe sepsis ICD Code: A41.9 - Sepsis, unspecified organism; R65.20 - Severe sepsis without septic shock Status: Acute (2) RLL pneumonia ICD Code: J18.1 - Lobar pneumonia, unspecified organism (3) Acute hypoxemic respiratory failure ICD Code: J96.01 - Acute respiratory failure with hypoxia (4) Lactic acidemia ICD Code: E87.2 - Acidosis (5) Severe hyperglycemia (6) Type 2 diabetes mellitus ICD Code: E11.9 - Type 2 diabetes mellitus Status: Chronic (7) Hypertension, benign ICD Code: I10 - Benign hypertension Status: Chronic (8) Hypothyroidism ICD Code: E03.9 - Hypothyroidism Status: Chronic (9) Diabetic neuropathy ICD Code: E11.40 - Diabetic neuropathy Status: Chronic (10) Chronic systolic heart failure ICD Code: I50.22 - Chronic systolic (congestive) heart failure (11) Severe mitral regurgitation ICD Code: I34.0 - Nonrheumatic mitral (valve) insufficiency Status: Chronic Assessment and Plan Acute hypoxemic respiratory failure Healthcare associated pneumonia Septic shock-resolved COPD exacerbation Elevated troponin Lactic acidosis Leukocytosis Acute kidney insufficiency Severe hyperglycemia Severe MR Ischemic cardiomyopathy Coronary artery disease status post CABG Poorly controlled diabetes Chronic pain and neuropathy h/o GERD PLAN: Neuro: Continue when necessary home [place] for pain (home medication)\ Continue Lyrica and nortriptyline Cardiovascular: Continue diuretics by mouth, Plavix, Aspirin, Coreg and HUMBLE inhibitors. Dr. Walker consulted for elevated troponin. Recommended continued medical management CTS Dr. Bhatia consulted for severe MR. Non surgical candidate he was called yesterday by Charge nurse and not surgery recommended. Patient is a poor candidate for mitral valve repair or replacement Recent cardiac cath showed coronary artery disease but nothing amenable to PCI Previous echo/UYRIY showed severe MR EF 35-40% Pulmonology: Improved on by mouth Levofloxacin. GI: ADA, heart healthy diet. Famotidine for GI prophylaxis ID: Empirical antibiotics: Zosyn antipseudomonal dose and azithromycin. Vancomycin 1.25 GM 1 given on admission at this time will go home on by mouth Levaquin for 5 days. Endocrine: Increase Levemir to 15 q12 and continue pre-meal Novolog to 2 U AC HS continue Levothyroxine, and scripts for insulin given. DVT GI prophylaxis - Teds SCDs - Subcutaneous Lovenox - Famotidine for GI prophylaxis Discharge Planning Cleared by Cardiothoracic surgery follow as outpatient with Cardiology. Wilber Quinones MD Aug 08, 2017 08:50
[2017-08-08] MEDS ORDERED: predniSONE 20 MG TAB PO SCH (09:00)
[2017-08-08 12:00] VITALS: BP 134/80; PULSE 93; RESP 20; TEMP 97.6; O2SAT 100
[2017-08-08] MEDS ORDERED: PRED20 PO (12:18)
[2017-08-08] MEDS ORDERED: SYMB160A INH (12:18)
[2017-08-08] MEDS ORDERED: LEVEMIR SQ (12:18)
[2017-08-08] MEDS ORDERED: FURO20TA PO (12:18)
[2017-08-08] MEDS ORDERED: NOVOLOGP2 SQ (12:18)
[2017-08-08] MEDS ORDERED: HYDR-3366 PO (12:18)
[2017-08-08] MEDS ORDERED: ISOS60TA PO (12:18)
[2017-08-08] MEDS ORDERED: LEVA750T9 PO (12:18)
[2017-08-08] MEDS: ENOXAPARIN SODIUM 40 MG/0.4 ML SYRINGE SQ SCH (12:19)
[2017-08-08] MEDS: LEVOFLOXACIN 750 MG TAB PO SCH (12:19)
--- NOTE | 2017-08-08 12:21 | HHI.DS ---
Discharge Summary Admission Date Aug 02, 2017 at 10:22 Discharge Date: Aug 08, 2017 Admitting Diagnosis Right lower lobe pneumonia/respiratory distress/BiPAP (1) Severe sepsis ICD Code: A41.9 - Sepsis, unspecified organism; R65.20 - Severe sepsis without septic shock Diagnosis: Principal Status: Acute (2) RLL pneumonia ICD Code: J18.1 - Lobar pneumonia, unspecified organism Diagnosis: Principal (3) Acute hypoxemic respiratory failure ICD Code: J96.01 - Acute respiratory failure with hypoxia Diagnosis: Principal (4) Lactic acidemia ICD Code: E87.2 - Acidosis Diagnosis: Principal (5) Severe hyperglycemia Diagnosis: Principal (6) Type 2 diabetes mellitus ICD Code: E11.9 - Type 2 diabetes mellitus Diagnosis: Secondary Status: Chronic (7) Hypertension, benign ICD Code: I10 - Benign hypertension Diagnosis: Principal Status: Chronic (8) Hypothyroidism ICD Code: E03.9 - Hypothyroidism Diagnosis: Principal Status: Chronic (9) Diabetic neuropathy ICD Code: E11.40 - Diabetic neuropathy Diagnosis: Principal Status: Chronic (10) Chronic systolic heart failure ICD Code: I50.22 - Chronic systolic (congestive) heart failure Diagnosis: Secondary (11) Severe mitral regurgitation ICD Code: I34.0 - Nonrheumatic mitral (valve) insufficiency Diagnosis: Secondary Status: Chronic Procedures None Brief History - From Admission Patient is a 62-year-old male with past medical history significant for COPD, coronary artery disease status post CABG, cardiomyopathy EF 35-40%, severe mitral regurgitation (apparently told by CT surgeon not a candidate for surgery, per the patient), type 2 diabetes, hypertension, who was brought to the emergency department by EMS for shortness of breath and severe wheezing. Given IV sedative Medrol 125 mg and breathing treatment by EMS. In the ER BiPAP was initiated due to persistent shortness of breath. Chest x-ray shows a right lower lobe pneumonia interstitial changes bilaterally. ER physician administered IV ceftriaxone I have started the patient on IV Zosyn and azithromycin. Because of the history of COPD have also started him on IV Solu- Medrol and DuoNeb breathing treatments. Blood and sputum cultures will be sent. Patient is septic with a white count of 18.7 and lactic acid 7. 2 L normal saline boluses ordered. BUN is 22 with creatinine of 1.33. Initial blood sugar was 492 and I have started patient on IV insulin per ICU protocol I evaluated the patient in the ICU. Patient is currently on BiPAP oxygen saturation is below 90% on 60% FiO2. He is still dyspneic but improving subjectively. Follow-up chest x-ray in a.m. Serial lactic acid will be checked. Patient has history of severe mitral regurgitation. His EF was 35-40 % which is an overestimation due to mitral regurgitation. Actually we may be close to 15-20% and for that reason patient was deemed not a candidate for valve replacement CBC/BMP: 08/07/17 0730 08/07/17 0730 Significant Findings Laboratory Tests Test 08/07/17 07:30 White Blood Count 12.9 TH/MM3 (4.0-11.0) Red Blood Count 4.11 MIL/MM3 (4.50-5.90) Hemoglobin 10.2 GM/DL (13.0-17.0) Hematocrit 32.3 % (39.0-51.0) Mean Corpuscular Volume 78.7 FL (80.0-100.0) Mean Corpuscular Hemoglobin 24.9 PG (27.0-34.0) Mean Corpuscular Hemoglobin Concent 31.6 % (32.0-36.0) Red Cell Distribution Width 18.7 % (11.6-17.2) Neutrophils (%) (Auto) 73.9 % (16.0-70.0) Neutrophils # (Auto) 9.5 TH/MM3 (1.8-7.7) Blood Urea Nitrogen 22 MG/DL (7-18) Random Glucose 170 MG/DL (74-106) Sodium Level 134 MEQ/L (136-145) Chloride Level 96 MEQ/L (98-107) Estimat Glomerular Filtration Rate 79 ML/MIN (>89) Imaging Last Impressions Chest X-Ray 08/05/17 0600 Signed Impressions: Service Date/Time: Saturday, August 05, 2017 02:35 - CONCLUSION: 1. No significant interval change. 2. Stable right lower lobe air space consolidation and small right pleural effusion. 3. Stable mild left lower lobe airspace disease with trace associated effusion. Varun De Paz MD PE at Discharge GENERAL: This is a well-nourished, well-developed patient, in no apparent distress. SKIN: No rashes, warm and dry HEAD: Atraumatic. Normocephalic. EYES: Pupils equal round and reactive. Extraocular motions intact. No scleral icterus. ENT: Nose without bleeding, or drainage, Airway patent. NECK: Trachea midline. Supple CARDIOVASCULAR: Regular rate and rhythm without murmurs, gallops, or rubs. RESPIRATORY: Decreased breath sounds bilaterally GASTROINTESTINAL: Abdomen soft, non-tender, nondistended. Positive bowel sounds MUSCULOSKELETAL: Right AKA, left lower extremity no edema NEUROLOGICAL: Awake and alert. Moves all extremity. Normal speech.no focal neurological deficit Hospital Course enrollment specialist Notes: Patient is a 62-year-old male with past medical history significant for COPD, coronary artery disease status post CABG, cardiomyopathy EF 35-40%, severe mitral regurgitation (apparently told by CT surgeon not a candidate for surgery, per the patient), type 2 diabetes, hypertension, who was brought to the emergency department by EMS for shortness of breath and severe wheezing. Given IV sedative Medrol 125 mg and breathing treatment by EMS. In the ER BiPAP was initiated due to persistent shortness of breath. Chest x-ray shows a right lower lobe pneumonia interstitial changes bilaterally. ER physician administered IV ceftriaxone I have started the patient on IV Zosyn and azithromycin. Because of the history of COPD have also started him on IV Solu- Medrol and DuoNeb breathing treatments. Blood and sputum cultures will be sent. Patient is septic with a white count of 18.7 and lactic acid 7. 2 L normal saline boluses ordered. BUN is 22 with creatinine of 1.33. Initial blood sugar was 492 and I have started patient on IV insulin per ICU protocol I evaluated the patient in the ICU. Patient is currently on BiPAP oxygen saturation is below 90% on 60% FiO2. He is still dyspneic but improving subjectively. Follow-up chest x-ray in a.m. Serial lactic acid will be checked. Patient has history of severe mitral regurgitation. His EF was 35-40 % which is an overestimation due to mitral regurgitation. Actually we may be close to 15-20% and for that reason patient was deemed not a candidate for valve replacement SUBJ 08/03: Remains on insulin but breathing improved. Currently on nasal cannula with adequate oxygen saturation. Troponin peaked at 1.07. Dr. Walker recommended medical management. Recent cath-CAD with no lesions amenable to PCI. Start IV Lasix due to increasing pleural effusion especially right 08/04: Intubated sedated in bed breathing more comfortably. Transition to subcutaneous insulin but hyperglycemic in a.m. Will reduce Levemir dose to 12 U q12 with continued pre meal insulin. UO remains adequate 08/05: Clinically improved sitting up in chair breathing comfortably. Chest x- ray shows stable right lower lobe consolidation. Discussed with CTS Dr. Bhatia. He will contact . [facility] tomorrow for possible mitral valve clip. Patient is deemed a poor candidate for mitral valve replacement or repair Hospitalist Notes. Patient transferred from ICU, severe MR, DM II Uncontrolled. Right lower lobe Pneumonia, and respiratory failure Non candidate for surgery for his MR, stable at this time discussed with patient and multidisciplinary meeting he was discussed yesterday with Cardiothoracic surgery and recommended not to go on Surgical management Non candidate as per Doctor Bhatia. the patient will go home and follow with PCP and Cardiology as outpatient. Assessment and Plan (1) Severe sepsis ICD Code: A41.9 - Sepsis, unspecified organism; R65.20 - Severe sepsis without septic shock Status: Acute (2) RLL pneumonia ICD Code: J18.1 - Lobar pneumonia, unspecified organism (3) Acute hypoxemic respiratory failure ICD Code: J96.01 - Acute respiratory failure with hypoxia (4) Lactic acidemia ICD Code: E87.2 - Acidosis (5) Severe hyperglycemia (6) Type 2 diabetes mellitus ICD Code: E11.9 - Type 2 diabetes mellitus Status: Chronic (7) Hypertension, benign ICD Code: I10 - Benign hypertension Status: Chronic (8) Hypothyroidism ICD Code: E03.9 - Hypothyroidism Status: Chronic (9) Diabetic neuropathy ICD Code: E11.40 - Diabetic neuropathy Status: Chronic (10) Chronic systolic heart failure ICD Code: I50.22 - Chronic systolic (congestive) heart failure (11) Severe mitral regurgitation ICD Code: I34.0 - Nonrheumatic mitral (valve) insufficiency Status: Chronic Assessment and Plan Acute hypoxemic respiratory failure Healthcare associated pneumonia Septic shock-resolved COPD exacerbation Elevated troponin Lactic acidosis Leukocytosis Acute kidney insufficiency Severe hyperglycemia Severe MR Ischemic cardiomyopathy Coronary artery disease status post CABG Poorly controlled diabetes Chronic pain and neuropathy h/o GERD PLAN: Neuro: Continue when necessary home [place] for pain (home medication)\ Continue Lyrica and nortriptyline Cardiovascular: Continue diuretics by mouth, Plavix, Aspirin, Coreg and HUMBLE inhibitors. Dr. Walker consulted for elevated troponin. Recommended continued medical management CTS Dr. Bhatia consulted for severe MR. Non surgical candidate he was called yesterday by Charge nurse and not surgery recommended. Patient is a poor candidate for mitral valve repair or replacement Recent cardiac cath showed coronary artery disease but nothing amenable to PCI Previous echo/YURIY showed severe MR EF 35-40% Pulmonology: Improved on by mouth Levofloxacin. GI: ADA, heart healthy diet. Famotidine for GI prophylaxis ID: Empirical antibiotics: Zosyn antipseudomonal dose and azithromycin. Vancomycin 1.25 GM 1 given on admission at this time will go home on by mouth Levaquin for 5 days. Endocrine: Increase Levemir to 15 q12 and continue pre-meal Novolog to 2 U AC HS continue Levothyroxine, and scripts for insulin given. DVT GI prophylaxis - Teds SCDs - Subcutaneous Lovenox - Famotidine for GI prophylaxis Discharge Planning Cleared by Cardiothoracic surgery follow as outpatient with Cardiology. Pt Condition on Discharge: Good Discharge Disposition: Discharge Home Discharge Time: > 30 minutes Discharge Instructions DIET: Follow Instructions for: Heart Healthy Diet, Diabetic Diet Activities you can perform: Regular-No Restrictions Wilber Quinones MD Aug 08, 2017 12:21
== END 2017-08-08 13:30 | disposition home or self-care (01) | DRG 871 ==
LOC: NEPE 08:53 → NEDA 10:22 → HIMN 12:02 → N04B 08-05 18:28
PROVIDERS: ADMIT Internal Medicine; ATTEND Internal Medicine
PROC: 5A09457 Assistance with Respiratory Ventilation, 24-96 Consecutive Hours, Continuous Positive Airway Pressure (ICD-10-PCS; principal; 2017-08-02)
DX: A41.9 Sepsis, unspecified organism (principal); R65.21 Severe sepsis with septic shock; J96.01 Acute respiratory failure with hypoxia; I11.0 Hypertensive heart disease with heart failure; E87.2 Acidosis; J18.9 Pneumonia, unspecified organism; Y95 Nosocomial condition; I50.22 Chronic systolic (congestive) heart failure; J44.0 Chronic obstructive pulmonary disease with (acute) lower respiratory infection; I25.110 Atherosclerotic heart disease of native coronary artery with unstable angina pectoris; E11.65 Type 2 diabetes mellitus with hyperglycemia; E11.40 Type 2 diabetes mellitus with diabetic neuropathy, unspecified; Z79.4 Long term (current) use of insulin; Z95.1 Presence of aortocoronary bypass graft; I25.5 Ischemic cardiomyopathy; I34.0 Nonrheumatic mitral (valve) insufficiency; Z79.02 Long term (current) use of antithrombotics/antiplatelets; Z79.82 Long term (current) use of aspirin; N28.9 Disorder of kidney and ureter, unspecified; E03.9 Hypothyroidism, unspecified; Z89.611 Acquired absence of right leg above knee; F17.210 Nicotine dependence, cigarettes, uncomplicated; G89.29 Other chronic pain; K21.9 Gastro-esophageal reflux disease without esophagitis; E78.5 Hyperlipidemia, unspecified
CPT/HCPCS: 36600; 71045; 76937; 80048; 80053; 82805; 82948; 83605; 83735; 84484; 85025; 87040; 87641; 93005; 94003; 94150; 94640; 94664; 99285; J0456; J0610; J0696; J1650; J1815; J1817; J1885; J1940; J2270; J2543; J2920; J2930; J3010; J3370; J7030; J7040; J7050; J7512

== ENCOUNTER 2017-08-10 21:28 | Emergency (ER) | payer MEDICAID, OTHER ==
[~2017-08-10] VITALS: Ht 170.2 cm; Wt 69.0 kg
[~2017-08-10 21:28] MED LIST changes: -AMLO5 PO; -CEFA2SOL IV; -EPIN1INJ21 SQ; +FURO20TA PO; -FURO40TA PO; +ISOS60TA PO; +LEVA750T9 PO; +PRED20 PO; -SOLU250I IV PUSH; +SYMB160A INH
[2017-08-10] MEDS ORDERED: SODIUM CHLORIDE 0.9% FLUSH 10 ML FLUSH IVF PRN (21:45)
[2017-08-10] MEDS ORDERED: SODIUM CHLORIDE 23.4% INJ 154 MEQ in DEXTROSE 10% INJ 1,000 ML IV SCH (21:45)
[2017-08-10 21:46] VITALS: BP 95/52; PULSE 94; RESP 20; TEMP 98; O2SAT 98
[2017-08-10 21:49] VITALS: RESP 22
[2017-08-10 22:26] LABS: AUTOMATED NEUTROPHIL # 11.5 TH/MM3 (1.8-7.7); BASOPHIL # 0.2 TH/MM3 (0-0.2); BASOPHIL % 1.2 % (0.0-2.0); EOSINOPHIL # 0.6 TH/MM3 (0-0.4); EOSINOPHIL % 3.8 % (0.0-4.0); HEMATOCRIT 33.4 % (39.0-51.0); HEMOGLOBIN 10.5 GM/DL (13.0-17.0); LYMPH % 19.2 % (9.0-44.0); LYMPHOCYTE # 3.2 TH/MM3 (1.0-4.8); MEAN CELL VOLUME 79.3 FL (80.0-100.0); MEAN CORPUSCULAR HGB CONC 31.5 % (32.0-36.0); MEAN PLATELET VOLUME 9.2 FL (7.0-11.0); MONO % 7.4 % (0.0-8.0); MONOCYTE # 1.3 TH/MM3 (0-0.9); NEUT % 68.4 % (16.0-70.0); PLATELET COUNT 297 TH/MM3 (150-450); RED BLOOD COUNT 4.21 MIL/MM3 (4.50-5.90); WHITE BLOOD COUNT 16.8 TH/MM3 (4.0-11.0)
[2017-08-10 22:28] VITALS: BP 102/68; PULSE 88; RESP 20; O2SAT 98
[2017-08-10 23:06] LABS: ALKALINE PHOSPHATASE 113 U/L (45-117); ALT (GPT) 24 U/L (12-78); AST (GOT) 22 U/L (15-37); BLOOD UREA NITROGEN 20 MG/DL (7-18); CALCIUM 7.9 MG/DL (8.5-10.1); CHLORIDE 102 MEQ/L (98-107); CREATININE 1.22 MG/DL (0.60-1.30); GLOMERULAR FILTRATION RATE 61 ML/MIN (>89); SODIUM (NA) 139 MEQ/L (136-145); TOTAL BILIRUBIN ADULT 0.2 MG/DL (0.2-1.0); TOTAL PROTEIN 6.3 GM/DL (6.4-8.2)
[2017-08-10 23:11] LABS: GLUCOSE,RANDOM 24 MG/DL (74-106)
[2017-08-10 23:27] VITALS: BP 101/55; PULSE 91; RESP 20; O2SAT 97
--- NOTE | 2017-08-11 01:22 | PD ---
HPI Chief Complaint: Diabetic Time Seen by Provider: 21:37 Travel History International Travel<30 days: No Contact w/Intl Traveler<30days: No Traveled to known affect area: No History of Present Illness HPI 62-year-old male arrives by EMS due to hypoglycemia. He took insulin prior to eating dinner. He was weak and EMS was activated. The initial blood glucose was in the 30s. Multiple repeat glucoses were also low. The patient reports some difficulty with hypoglycemia for the past few days. Location endocrine. Severity moderate. PFSH Past Medical History Hx Anticoagulant Therapy: Yes Arthritis: Yes Asthma: No Autoimmune Disease: No Blood Disorders: No Anxiety: Yes Depression: Yes Heart Rhythm Problems: No Cancer: No Cardiovascular Problems: Yes High Cholesterol: Yes Chemotherapy: No Chest Pain: No Congestive Heart Failure: No COPD: No Cerebrovascular Accident: No Coronary Artery Disease: Yes Diabetes: Yes Patient Takes Glucophage: No Diminished Hearing: Yes ([place]) Endocrine: Yes Gastrointestinal Disorders: Yes (ESOPHAGEAL ULCER? stricture, stretch) GERD: Yes Glaucoma: No Genitourinary: No Headaches: No Hepatitis: No Hiatal Hernia: No Hypertension: Yes Immune Disorder: No Implanted Vascular Access Dvce: Yes Kidney Stones: No Musculoskeletal: Yes (cervical and lumbar spine pt states he has bulging disc R AKA) Neurologic: Yes (NEUROPATHY pvd) Psychiatric: No Reproductive: No Respiratory: Yes Immunizations Current: No Migraines: No Myocardial Infarction: Yes Radiation Therapy: No Renal Failure: No Seizures: Yes Sickle Cell Disease: No Sleep Apnea: No Thyroid Disease: Yes Ulcer: No Tetanus Vaccination: < 5 Years Influenza Vaccination: Yes PNEUMOCCOCAL Vaccine (Year): 2 Past Surgical History Abdominal Surgery: Yes (EXP. LEFT BRACHIAL PLEXIS,APPEND., COLECTOMY) AICD: No Appendectomy: Yes Arteriovenous Shunt: No Body Medical Devices: Right leg amputaion wears prosthesis Cardiac Surgery: Yes (CABGX4) Cholecystectomy: No Coronary Artery Bypass Graft: Yes (2004) Ear Surgery: No Endocrine Surgery: No Eye Surgery: No Genitourinary Surgery: No Gynecologic Surgery: No Insulin Pump: No Joint Replacement: No Neurologic Surgery: No Oral Surgery: No Pacemaker: No Thoracic Surgery: Yes (L5, S1, fusions) Tonsillectomy: Yes Other Surgery: Yes (2 HYDROCELE) Social History Alcohol Use: No Tobacco Use: Yes (6-7 CIGARETTES/DAY) Substance Use: No Allergies-Medications (Allergen,Severity, Reaction): Coded Allergies: No Known Allergies (Unverified , 08/10/17) Reported Meds & Prescriptions Reported Meds & Active Scripts Active Symbicort Inh (Budesonide/Formoterol Fumarate) 160-4.5 Mcg/Act Aero 1 Puff INH Q12HR Prednisone 20 Mg Tab 20 Mg PO DAILY Furosemide 20 Mg Tab 20 Mg PO BID@09,18 Isosorbide Mononitrate ER (Isosorbide Mononitrate) 60 Mg Tab 60 Mg PO DAILY@07 [place] (Hydrocodone-Acetaminophen) 10-325 Mg Tab 1 Tab PO Q6HR 7 Days DO NOT USE THIS MEDICINE IF YOU WILL DRIVE A CAR OR USE A MACHINE, ONLY USE IT WHEN RESTING AT HOME. Levemir Inj (Insulin Detemir) 1,000 unit/ 10 ML Vial 8 Units SQ BID 30 Days Do not mix with any other Insulin. Novolog Inj (Insulin Aspart) 1,000 Unit/10 Ml Vial 1-9 Units SQ ACHS sugars less than 70,(0)units; sugars 150-199,(1) unit; sugars 200-249,(3) units; sugars 250-299,(5) units; sugars 300-349,(7) units; sugars greater than 349,(9) units. inform PCP if < 70 or > 400. Lisinopril 5 Mg Tab 5 Mg PO DAILY Epinephrine Inj 1 Mg/Ml (1 Ml) Inj 0.3 Mg IV PUSH ONCE PRN Atorvastatin (Atorvastatin Calcium) 80 Mg Tab 80 Mg PO HS 30 Days Prilosec (Omeprazole Magnesium) 20 Mg Tab 1 Tab PO BID Lyrica (Pregabalin) 100 Mg Cap 100 Mg PO TID Adult Aspirin EC Low Strength (Aspirin) 81 Mg Tabec 81 Mg PO DAILY 30 Days Nortriptyline (Nortriptyline HCl) 75 Mg Cap 75 Mg PO HS Plavix (Clopidogrel Bisulfate) 75 Mg Tab 75 Mg PO DAILY Synthroid (Levothyroxine Sodium) 100 Mcg Tab 100 Mcg PO DAILY@06 Carvedilol 6.25 Mg Tab 6.25 Mg PO BID Reported B12 (Cyanocobalamin) 1,000 Mcg Tab 1,000 Mcg PO DAILY Review of Systems Except as stated in HPI: all other systems reviewed are Neg General / Constitutional: No: Fever Physical Exam Narrative GENERAL: 62-year-old male well-nourished well-developed SKIN: Warm and dry. HEAD: Atraumatic. Normocephalic. EYES: Pupils equal and round. No scleral icterus. No injection or drainage. ENT: No nasal bleeding or discharge. Mucous membranes pink and moist. NECK: Trachea midline. No JVD. CARDIOVASCULAR: Regular rate and rhythm. RESPIRATORY: No accessory muscle use. Clear to auscultation. Breath sounds equal bilaterally. GASTROINTESTINAL: Abdomen soft, non-tender, nondistended. Hepatic and splenic margins not palpable. MUSCULOSKELETAL: Right BKA. No gross deformity otherwise. NEUROLOGICAL: Awake and alert. No obvious cranial nerve deficits. Motor grossly within normal limits. Five out of 5 muscle strength in the arms and legs. Normal speech. PSYCHIATRIC: Appropriate mood and affect; insight and judgment normal. Data Data Last Documented VS Vital Signs Date Time Temp Pulse Resp B/P (MAP) Pulse Ox O2 Delivery O2 Flow Rate FiO2 08/10/17 23:27 91 20 101/55 (70) 97 Room Air 08/10/17 21:46 98.0 Orders Orders Complete Blood Count With Diff (08/10/17 21:37) Comprehensive Metabolic Panel (08/10/17 21:37) Blood Glucose (08/10/17 21:37) Blood Glucose (08/10/17 22:07) Ecg Monitoring (08/10/17 21:37) Iv Access Insert/Monitor (08/10/17 21:37) Oximetry (08/10/17 21:37) NPO (08/10/17 21:37) Sodium Chloride 0.9% Flush (Ns Flush) (08/10/17 21:45) Dextrose 10% Inj (D... W/Sodium Chloride (08/10/17 21:45) Labs Laboratory Tests Test 08/10/17 21:50 White Blood Count 16.8 TH/MM3 Red Blood Count 4.21 MIL/MM3 Hemoglobin 10.5 GM/DL Hematocrit 33.4 % Mean Corpuscular Volume 79.3 FL Mean Corpuscular Hemoglobin 25.0 PG Mean Corpuscular Hemoglobin Concent 31.5 % Red Cell Distribution Width 19.0 % Platelet Count 297 TH/MM3 Mean Platelet Volume 9.2 FL Neutrophils (%) (Auto) 68.4 % Lymphocytes (%) (Auto) 19.2 % Monocytes (%) (Auto) 7.4 % Eosinophils (%) (Auto) 3.8 % Basophils (%) (Auto) 1.2 % Neutrophils # (Auto) 11.5 TH/MM3 Lymphocytes # (Auto) 3.2 TH/MM3 Monocytes # (Auto) 1.3 TH/MM3 Eosinophils # (Auto) 0.6 TH/MM3 Basophils # (Auto) 0.2 TH/MM3 CBC Comment DIFF FINAL Differential Comment Blood Urea Nitrogen 20 MG/DL Creatinine 1.22 MG/DL Random Glucose 24 MG/DL Total Protein 6.3 GM/DL Albumin 3.0 GM/DL Calcium Level 7.9 MG/DL Alkaline Phosphatase 113 U/L Aspartate Amino Transf (AST/SGOT) 22 U/L Alanine Aminotransferase (ALT/SGPT) 24 U/L Total Bilirubin 0.2 MG/DL Sodium Level 139 MEQ/L Potassium Level 3.3 MEQ/L Chloride Level 102 MEQ/L Carbon Dioxide Level 30.0 MEQ/L Anion Gap 7 MEQ/L Estimat Glomerular Filtration Rate 61 ML/MIN MDM Medical Decision Making Medical Screen Exam Complete: Yes Emergency Medical Condition: Yes Medical Record Reviewed: Yes Differential Diagnosis Hypoglycemia, insulin overdose, metabolic disarray Narrative Course CBC & BMP Diagram 08/10/17 21:50 Total Protein 6.3 L, Albumin 3.0 L, Calcium Level 7.9 L, Alkaline Phosphatase 113, Aspartate Amino Transf (AST/SGOT) 22, Alanine Aminotransferase (ALT/SGPT) 24, Total Bilirubin 0.2 Multiple repeat bedside finger glucoses of then 150 or above over the past few hours. At time of intake of the insulin was 6 hours prior to this time of dictation. The patient is ready for discharge home. Diagnosis Primary Impression: Hypoglycemia Patient Instructions: General Instructions, Hypoglycemia in a Person with Diabetes (ED) Departure Forms: Tests/Procedures Disposition: DISCHARGE HOME Condition: Stable Jamil Richter MD Aug 11, 2017 01:22
== END 2017-08-11 01:18 | disposition home or self-care (01) ==
LOC: NEPC 21:28
DX: E11.649 Type 2 diabetes mellitus with hypoglycemia without coma (principal); I25.10 Atherosclerotic heart disease of native coronary artery without angina pectoris; K21.9 Gastro-esophageal reflux disease without esophagitis; E78.00 Pure hypercholesterolemia, unspecified; F41.9 Anxiety disorder, unspecified; I10 Essential (primary) hypertension; E11.40 Type 2 diabetes mellitus with diabetic neuropathy, unspecified; R56.9 Unspecified convulsions; Z89.511 Acquired absence of right leg below knee
CPT/HCPCS: 80053; 85025; 96374

== ENCOUNTER 2017-08-21 10:31 | Inpatient (IN) | payer MEDICAID ==
[2017-08-20 14:15] VITALS: BP 106/59; PULSE 108; RESP 20; TEMP 98.8; O2SAT 98
[2017-08-21] VITALS (13 sets, daily range): BP systolic 102–131; BP diastolic 57–67; PULSE 94–106; RESP 16–20; TEMP 97.7–100.1; O2SAT 97–100
[~2017-08-21] VITALS: Ht 182.9 cm; Wt 67.1 kg
[~2017-08-21 10:31] MED LIST changes: -LEVA750T9 PO
[2017-08-21] MEDS ORDERED: SODIUM CHLOR 0.9% 1000 ML INJ 1,000 ML IV ONE ×2 (10:56→11:26)
[2017-08-21] MEDS ORDERED: ONDANSETRON HCL 4 MG/2 ML VIAL IV PUSH ONE (11:00)
--- NOTE | 2017-08-21 11:03 | PD ---
HPI Chief Complaint: Diabetic Time Seen by Provider: 10:46 Travel History International Travel<30 days: No Contact w/Intl Traveler<30days: No Traveled to known affect area: No History of Present Illness HPI The patient is a 62 year-old male who presents to the emergency department for elevated blood glucose. The patient has a history of type 1 diabetes since he was in his 30s, he has been out of his insulin for the last 48 hours. The patient states he was prescribed Levemir 10 units twice a day with sliding scale insulin, NovoLog. However, the patient states he is unable to afford his medications and has not had any insulin the last 2 days. The patient states he has seen Dr. Wright in the clinic, does not follow up with endocrinology. He does complain of generalized malaise, dry mouth, polyuria, polyphagia, nausea, and vomiting. He denies any chest pain, shortness of breath , or abdominal pain. He does have a history of right above-knee amputation secondary to peripheral vascular disease. He does have a history of tobacco use , last cigarette was this morning. Symptoms are mild to moderate, possibly exacerbated by noncompliance and financial issues. PFSH Past Medical History Hx Anticoagulant Therapy: Yes Arthritis: Yes Asthma: No Autoimmune Disease: No Blood Disorders: No Anxiety: Yes Depression: Yes Heart Rhythm Problems: No Cancer: No Cardiovascular Problems: Yes High Cholesterol: Yes Chemotherapy: No Chest Pain: No Congestive Heart Failure: No COPD: No Cerebrovascular Accident: No Coronary Artery Disease: Yes Diabetes: Yes Patient Takes Glucophage: No Diminished Hearing: Yes ([place]) Endocrine: Yes Gastrointestinal Disorders: Yes (ESOPHAGEAL ULCER? stricture, stretch) GERD: Yes Glaucoma: No Genitourinary: No Headaches: No Hepatitis: No Hiatal Hernia: No Hypertension: Yes Immune Disorder: No Implanted Vascular Access Dvce: Yes Kidney Stones: No Musculoskeletal: Yes (cervical and lumbar spine pt states he has bulging disc R AKA) Neurologic: Yes (NEUROPATHY pvd) Psychiatric: No Reproductive: No Respiratory: Yes Immunizations Current: No Migraines: No Myocardial Infarction: Yes Radiation Therapy: No Renal Failure: No Seizures: Yes Sickle Cell Disease: No Sleep Apnea: No Thyroid Disease: Yes Ulcer: No Tetanus Vaccination: > 5 Years Influenza Vaccination: Yes PNEUMOCCOCAL Vaccine (Year): 2 Past Surgical History Abdominal Surgery: Yes (EXP. LEFT BRACHIAL PLEXIS,APPEND., COLECTOMY) AICD: No Appendectomy: Yes Arteriovenous Shunt: No Body Medical Devices: Right leg amputaion wears prosthesis Cardiac Surgery: Yes (CABGX4) Cholecystectomy: No Coronary Artery Bypass Graft: Yes (2005) Ear Surgery: No Endocrine Surgery: No Eye Surgery: No Genitourinary Surgery: No Gynecologic Surgery: No Insulin Pump: No Joint Replacement: No Neurologic Surgery: No Oral Surgery: No Pacemaker: No Thoracic Surgery: Yes (L5, S1, fusions) Tonsillectomy: Yes Other Surgery: Yes (2 HYDROCELE) Social History Alcohol Use: No Tobacco Use: Yes (quit 2 years ago) Substance Use: No Allergies-Medications (Allergen,Severity, Reaction): Coded Allergies: No Known Allergies (Unverified , 08/21/17) Reported Meds & Prescriptions Reported Meds & Active Scripts Active Symbicort Inh (Budesonide/Formoterol Fumarate) 160-4.5 Mcg/Act Aero 1 Puff INH Q12HR Prednisone 20 Mg Tab 20 Mg PO DAILY Furosemide 20 Mg Tab 20 Mg PO BID@09,18 Isosorbide Mononitrate ER (Isosorbide Mononitrate) 60 Mg Tab 60 Mg PO DAILY@07 [place] (Hydrocodone-Acetaminophen) 10-325 Mg Tab 1 Tab PO Q6HR 7 Days DO NOT USE THIS MEDICINE IF YOU WILL DRIVE A CAR OR USE A MACHINE, ONLY USE IT WHEN RESTING AT HOME. Levemir Inj (Insulin Detemir) 1,000 unit/ 10 ML Vial 8 Units SQ BID 30 Days Do not mix with any other Insulin. Novolog Inj (Insulin Aspart) 1,000 Unit/10 Ml Vial 1-9 Units SQ ACHS sugars less than 70,(0)units; sugars 150-199,(1) unit; sugars 200-249,(3) units; sugars 250-299,(5) units; sugars 300-349,(7) units; sugars greater than 349,(9) units. inform PCP if < 70 or > 400. Lisinopril 5 Mg Tab 5 Mg PO DAILY Epinephrine Inj 1 Mg/Ml (1 Ml) Inj 0.3 Mg IV PUSH ONCE PRN Atorvastatin (Atorvastatin Calcium) 80 Mg Tab 80 Mg PO HS 30 Days Prilosec (Omeprazole Magnesium) 20 Mg Tab 1 Tab PO BID Lyrica (Pregabalin) 100 Mg Cap 100 Mg PO TID Adult Aspirin EC Low Strength (Aspirin) 81 Mg Tabec 81 Mg PO DAILY 30 Days Nortriptyline (Nortriptyline HCl) 75 Mg Cap 75 Mg PO HS Plavix (Clopidogrel Bisulfate) 75 Mg Tab 75 Mg PO DAILY Synthroid (Levothyroxine Sodium) 100 Mcg Tab 100 Mcg PO DAILY@06 Carvedilol 6.25 Mg Tab 6.25 Mg PO BID Reported B12 (Cyanocobalamin) 1,000 Mcg Tab 1,000 Mcg PO DAILY Review of Systems Except as stated in HPI: all other systems reviewed are Neg General / Constitutional: No: Fever HENT: No: Lightheadedness Cardiovascular: No: Chest Pain or Discomfort Respiratory: No: Shortness of Breath Gastrointestinal: Positive: Nausea, Vomiting, No: Diarrhea, Abdominal Pain Genitourinary: No: Dysuria Musculoskeletal: Positive: Weakness, Other (right above-knee amputation) Endocrine: Positive: Polyuria, Polydipsia Physical Exam Narrative GENERAL: Awake, alert, nontoxic-appearing 8-year-old male who appears his stated age and is in no acute respiratory distress. SKIN: Focused skin assessment warm/dry. HEAD: Atraumatic. Normocephalic. EYES: Pupils equal and round. No scleral icterus. No injection or drainage. ENT: No nasal bleeding or discharge. Dry mucous membranes. Breath smells of tobacco. NECK: Trachea midline. No JVD. CARDIOVASCULAR: Regular rate and rhythm. No murmur appreciated. Heart rate in the 90s. RESPIRATORY: No accessory muscle use. Clear to auscultation. Breath sounds equal bilaterally. GASTROINTESTINAL: Abdomen soft, non-tender, nondistended. No rebound tenderness. MUSCULOSKELETAL: Right above-knee amputation with prosthesis in place. NEUROLOGICAL: Awake and alert. No obvious cranial nerve deficits. Motor grossly within normal limits. Normal speech. PSYCHIATRIC: Appropriate mood and affect; insight and judgment normal. Data Data Last Documented VS Vital Signs Date Time Temp Pulse Resp B/P (MAP) Pulse Ox O2 Delivery O2 Flow Rate FiO2 08/21/17 12:29 101 18 106/60 (75) 100 Room Air 08/21/17 11:55 97.8 Orders Orders Electrocardiogram (08/21/17 10:56) Complete Blood Count With Diff (08/21/17 10:56) Comprehensive Metabolic Panel (08/21/17 10:56) Magnesium (Mg) (08/21/17 10:56) Beta Hydroxybutyrate (Acetone) (08/21/17 10:56) Lactic Acid (08/21/17 10:56) Urinalysis - C+S If Indicated (08/21/17 10:56) Blood Gas Venous (Vbg) (08/21/17 10:56) Blood Glucose (08/21/17 10:56) Blood Glucose (08/21/17 11:56) Ecg Monitoring (08/21/17 10:56) Iv Access Insert/Monitor (08/21/17 10:56) Oximetry (08/21/17 10:56) NPO (08/21/17 10:56) Sodium Chlor 0.9% 1000 Ml Inj (Ns 1000 M (08/21/17 10:56) Sodium Chlor 0.9% 1000 Ml Inj (Ns 1000 M (08/21/17 11:26) Sodium Chloride 0.9% Flush (Ns Flush) (08/21/17 11:00) Troponin I (08/21/17 10:56) Lipase (08/21/17 10:56) Ondansetron Inj (Zofran Inj) (08/21/17 11:00) Prochlorperazine Inj (Compazine Inj) (08/21/17 12:30) Box Office Clerk / Telemetry [email or web address] (08/21/17 12:37) ^ Insert Iv (08/21/17 12:37) Diet Npo (08/21/17 Lunch) Sodium Chlor 0.9% 1000 Ml Inj (Ns 1000 M (08/21/17 12:37) Dext 5%-Nacl 0.9% 1000 Ml Inj (D5w-Ns 10 (08/21/17 12:37) Insulin Human Regular Inj (Novolin R Inj (08/21/17 12:45) Insulin Regular (Iv Infusion) (Novolin R (08/21/17 12:45) Potassium Chlor 40 Meq Premix (Kcl 40 Me (08/21/17 12:45) Potassium Chlor 40 Meq Premix (Kcl 40 Me (08/21/17 12:45) Potassium Chlor 20 Meq Premix (Kcl 20 Me (08/21/17 12:45) Potassium Chlor 20 Meq Premix (Kcl 20 Me (08/21/17 12:45) Potassium Chlor 20 Meq Premix (Kcl 20 Me (08/21/17 12:45) Potassium Chlor 20 Meq Premix (Kcl 20 Me (08/21/17 12:45) Potassium Chlor 20 Meq Premix (Kcl 20 Me (08/21/17 12:45) Potassium Chlor 20 Meq Premix (Kcl 20 Me (08/21/17 12:45) Sodium Bicarbonate 8.4% Inj (Sodium Bica (08/21/17 12:45) Sodium Bicarbonate 8.4% Inj (Sodium Bica (08/21/17 12:45) Sodium Phosphate Inj (Sodium Phosphate I (08/21/17 12:45) Hemoglobin (Hgb) A1c (08/21/17 12:37) Basic Metabolic Panel (Bmp) (08/21/17 17:37) Basic Metabolic Panel (Bmp) (08/21/17 23:37) Basic Metabolic Panel (Bmp) (08/22/17 05:37) Basic Metabolic Panel (Bmp) (08/22/17 11:37) Magnesium (Mg) (08/21/17 17:37) Magnesium (Mg) (08/21/17 23:37) Magnesium (Mg) (08/22/17 05:37) Magnesium (Mg) (08/22/17 11:37) Phosphorus (Po4) (08/21/17 17:37) Phosphorus (Po4) (08/21/17 23:37) Phosphorus (Po4) (08/22/17 05:37) Phosphorus (Po4) (08/22/17 11:37) Beta Hydroxybutyrate (Acetone) (08/21/17 23:37) Beta Hydroxybutyrate (Acetone) (08/22/17 11:37) Lactic Acid (08/21/17 12:57) Admit Order (Ed Use Only) (08/21/17 13:02) Labs Laboratory Tests Test 08/21/17 11:00 08/21/17 11:15 Blood Gas Puncture Site IV Blood Gas Patient Temperature 98.6 Venous Blood pH 7.32 Venous Blood Partial Pressure CO2 23 mmHg Venous Blood Partial Pressure O2 45 mmHg Venous Blood HCO3 12 mmol/L Venous Blood Oxygen Saturation 72 % Venous Blood Oxygen Content 9.7 Vol % Venous Blood Base Excess -13.4 mmol/L Oxygen Delivery Device ROOM AIR Blood Gas Inspired Oxygen 21 % White Blood Count 16.3 TH/MM3 Red Blood Count 4.03 MIL/MM3 Hemoglobin 10.1 GM/DL Hematocrit 32.8 % Mean Corpuscular Volume 81.3 FL Mean Corpuscular Hemoglobin 25.1 PG Mean Corpuscular Hemoglobin Concent 30.9 % Red Cell Distribution Width 20.3 % Platelet Count 257 TH/MM3 Mean Platelet Volume 9.9 FL Neutrophils (%) (Auto) 91.2 % Lymphocytes (%) (Auto) 6.4 % Monocytes (%) (Auto) 1.3 % Eosinophils (%) (Auto) 0.1 % Basophils (%) (Auto) 1.0 % Neutrophils # (Auto) 14.8 TH/MM3 Lymphocytes # (Auto) 1.0 TH/MM3 Monocytes # (Auto) 0.2 TH/MM3 Eosinophils # (Auto) 0.0 TH/MM3 Basophils # (Auto) 0.2 TH/MM3 CBC Comment DIFF FINAL Differential Comment Urine Color LIGHT-YELLOW Urine Turbidity CLEAR Urine pH 5.5 Urine Specific [place] 1.016 Urine Protein NEG mg/dL Urine Glucose (UA) 1000 mg/dL Urine Ketones 80 mg/dL Urine Occult Blood NEG Urine Nitrite NEG Urine Bilirubin NEG Urine Urobilinogen LESS THAN 2.0 MG/DL Urine Leukocyte Esterase NEG Urine RBC LESS THAN 1 /hpf Urine WBC LESS THAN 1 /hpf Microscopic Urinalysis Comment CULT NOT INDICATED Blood Urea Nitrogen 36 MG/DL Creatinine 1.51 MG/DL Random Glucose 619 MG/DL Total Protein 7.6 GM/DL Albumin 3.4 GM/DL Calcium Level 10.1 MG/DL Magnesium Level 2.2 MG/DL Alkaline Phosphatase 166 U/L Aspartate Amino Transf (AST/SGOT) 10 U/L Alanine Aminotransferase (ALT/SGPT) 16 U/L Total Bilirubin 0.9 MG/DL Sodium Level 129 MEQ/L Potassium Level 4.3 MEQ/L Chloride Level 90 MEQ/L Carbon Dioxide Level 14.4 MEQ/L Anion Gap 25 MEQ/L Estimat Glomerular Filtration Rate 47 ML/MIN Lactic Acid Level 2.7 mmol/L Troponin I 0.08 NG/ML Lipase 26 U/L B-Hydroxybutyrate 9.15 MMOL/L MDM Medical Decision Making Medical Screen Exam Complete: Yes Emergency Medical Condition: Yes Medical Record Reviewed: Yes Interpretation(s) EKG reveals junctional rhythm with a rate in 99. Left bundle branch block. No significant changes when compared to EKG performed August 03, 2017. Laboratory Tests Test 08/21/17 11:00 08/21/17 11:15 Blood Gas Puncture Site IV Blood Gas Patient Temperature 98.6 Venous Blood pH 7.32 Venous Blood Partial Pressure CO2 23 mmHg Venous Blood Partial Pressure O2 45 mmHg Venous Blood HCO3 12 mmol/L Venous Blood Oxygen Saturation 72 % Venous Blood Oxygen Content 9.7 Vol % Venous Blood Base Excess -13.4 mmol/L Oxygen Delivery Device ROOM AIR Blood Gas Inspired Oxygen 21 % White Blood Count 16.3 TH/MM3 Red Blood Count 4.03 MIL/MM3 Hemoglobin 10.1 GM/DL Hematocrit 32.8 % Mean Corpuscular Volume 81.3 FL Mean Corpuscular Hemoglobin 25.1 PG Mean Corpuscular Hemoglobin Concent 30.9 % Red Cell Distribution Width 20.3 % Platelet Count 257 TH/MM3 Mean Platelet Volume 9.9 FL Neutrophils (%) (Auto) 91.2 % Lymphocytes (%) (Auto) 6.4 % Monocytes (%) (Auto) 1.3 % Eosinophils (%) (Auto) 0.1 % Basophils (%) (Auto) 1.0 % Neutrophils # (Auto) 14.8 TH/MM3 Lymphocytes # (Auto) 1.0 TH/MM3 Monocytes # (Auto) 0.2 TH/MM3 Eosinophils # (Auto) 0.0 TH/MM3 Basophils # (Auto) 0.2 TH/MM3 CBC Comment DIFF FINAL Differential Comment Urine Color LIGHT-YELLOW Urine Turbidity CLEAR Urine pH 5.5 Urine Specific [place] 1.016 Urine Protein NEG mg/dL Urine Glucose (UA) 1000 mg/dL Urine Ketones 80 mg/dL Urine Occult Blood NEG Urine Nitrite NEG Urine Bilirubin NEG Urine Urobilinogen LESS THAN 2.0 MG/DL Urine Leukocyte Esterase NEG Urine RBC LESS THAN 1 /hpf Urine WBC LESS THAN 1 /hpf Microscopic Urinalysis Comment CULT NOT INDICATED Blood Urea Nitrogen 36 MG/DL Creatinine 1.51 MG/DL Random Glucose 619 MG/DL Total Protein 7.6 GM/DL Albumin 3.4 GM/DL Calcium Level 10.1 MG/DL Magnesium Level 2.2 MG/DL Alkaline Phosphatase 166 U/L Aspartate Amino Transf (AST/SGOT) 10 U/L Alanine Aminotransferase (ALT/SGPT) 16 U/L Total Bilirubin 0.9 MG/DL Sodium Level 129 MEQ/L Potassium Level 4.3 MEQ/L Chloride Level 90 MEQ/L Carbon Dioxide Level 14.4 MEQ/L Anion Gap 25 MEQ/L Estimat Glomerular Filtration Rate 47 ML/MIN Lactic Acid Level 2.7 mmol/L Troponin I 0.08 NG/ML Lipase 26 U/L B-Hydroxybutyrate 9.15 MMOL/L Differential Diagnosis Differential diagnosis includes noncompliance, DKA, hyperglycemia, dehydration, which led abnormality, hyperosmolar non-ketosis, tobacco abuse. Narrative Course IV was established, labs are drawn and sent, and the patient was placed on cardiac telemetry monitoring and continuous pulse oximetry monitoring. EKG was ordered and interpreted. VBG was sent to lab. The patient was administered 2 L of IV fluids. Patient's anion gap is elevated at 25, pH was only 7.3, however , beta hydroxy is greater than 9, urine has ketones, and creatinine is elevated. Troponin is mildly elevated 0.08, may be secondary to acute kidney injury. The patient was placed on an insulin drip. A call was placed to the supervisor poultry processing for admission for DKA. Critical Care Narrative Aggregate critical care time was 35 minutes. Time to perform other separately billable procedures was not included in the critical care time. My time did not include minutes spent treating any other patients simultaneously or on activities that did not directly contribute to the patient's treatment. The services I provided to this patient were to treat and/or prevent clinically significant deterioration that could result in: Dehydration, acidosis, electrolyte abnormality, arrhythmia,,. I provided critical care services requiring my management, as noted below: Chart data review, documentation time, medication orders and management, vital sign assessments/reviewing monitor data, ordering and reviewing lab tests, ordering and interpreting/reviewing x-rays and diagnostic studies, care of the patient and discussion of the patient with the admitting physicians. Physician Communication Physician Communication A call was placed to the on-call supervisor poultry processing for admission. I discussed the patient with Dr. Evangelista who agrees with admission. Diagnosis Primary Impression: Diabetic ketoacidosis Qualified Codes: E10.10 - Type 1 diabetes mellitus with ketoacidosis without coma Additional Impressions: RENE (acute kidney injury) Elevated troponin Admitting Information Admitting Physician Requests: Admit Condition: Serious Dave Araya MD Aug 21, 2017 11:03
[2017-08-21] MEDS: SODIUM CHLORIDE 0.9% FLUSH 10 ML FLUSH IVF PRN ×2 (11:06→12:28)
[2017-08-21 11:30] LABS: BILIRUBIN, URINE NEG (NEG); BLOOD, URINE NEG (NEG); GLUCOSE,URINE 1000 mg/dL (NEG); KETONE, URINE 80 mg/dL (NEG); NITRITE,URINE NEG (NEG); PH, URINE 5.5 (5.0-8.5); URINE COLOR LIGHT-YELLOW (YELLW/STRAW); URINE LEUKOCYTE ESTERASE NEG (NEG)
[2017-08-21 11:34] LABS: AUTOMATED NEUTROPHIL # 14.8 TH/MM3 (1.8-7.7); BASOPHIL # 0.2 TH/MM3 (0-0.2); EOSINOPHIL % 0.1 % (0.0-4.0); HEMATOCRIT 32.8 % (39.0-51.0); HEMOGLOBIN 10.1 GM/DL (13.0-17.0); LYMPH % 6.4 % (9.0-44.0); MEAN CELL VOLUME 81.3 FL (80.0-100.0); MEAN CORPUSCULAR HEMOGLOBIN 25.1 PG (27.0-34.0); MEAN CORPUSCULAR HGB CONC 30.9 % (32.0-36.0); MEAN PLATELET VOLUME 9.9 FL (7.0-11.0); MONO % 1.3 % (0.0-8.0); MONOCYTE # 0.2 TH/MM3 (0-0.9); NEUT % 91.2 % (16.0-70.0); PLATELET COUNT 257 TH/MM3 (150-450); RED BLOOD COUNT 4.03 MIL/MM3 (4.50-5.90); RED CELL DISTRIBUTION WIDTH 20.3 % (11.6-17.2); WHITE BLOOD COUNT 16.3 TH/MM3 (4.0-11.0)
[2017-08-21 12:11] LABS: ALBUMIN 3.4 GM/DL (3.4-5.0); ALKALINE PHOSPHATASE 166 U/L (45-117); ALT (GPT) 16 U/L (12-78); AST (GOT) 10 U/L (15-37); BICARBONATE 14.4 MEQ/L (21.0-32.0); BLOOD UREA NITROGEN 36 MG/DL (7-18); CALCIUM 10.1 MG/DL (8.5-10.1); CHLORIDE 90 MEQ/L (98-107); CREATININE 1.51 MG/DL (0.60-1.30); GLOMERULAR FILTRATION RATE 47 ML/MIN (>89); MAGNESIUM 2.2 MG/DL (1.5-2.5); SODIUM (NA) 129 MEQ/L (136-145); TOTAL BILIRUBIN ADULT 0.9 MG/DL (0.2-1.0); TOTAL PROTEIN 7.6 GM/DL (6.4-8.2); TROPONIN I 0.08 NG/ML (0.02-0.05)
[2017-08-21 12:24] LABS: GLUCOSE,RANDOM 619 MG/DL (74-106)
[2017-08-21] MEDS ORDERED: PROCHLORPERAZINE INJ 10 MG/2 ML VIAL IV PUSH ONE (12:30)
[2017-08-21] MEDS ORDERED: DEXT 5%-NACL 0.9% 1000 ML INJ 1,000 ML IV SCH (12:37)
[2017-08-21] MEDS ORDERED: SODIUM CHLOR 0.9% 1000 ML INJ 1,000 ML IV SCH (12:37)
[2017-08-21] MEDS ORDERED: INSULIN REGULAR (IV INFUSION) 100 UNITS in SODIUM CHLORIDE 0.9% INJ 99 ML IV PRN ×2 (12:45→13:15)
[2017-08-21] MEDS ORDERED: POTASSIUM CHLOR 40 MEQ PREMIX 100 ML IV PRN ×4 (12:45→13:15)
[2017-08-21] MEDS ORDERED: SODIUM PHOSPHATE INJ 15 MMOL in SODIUM CHLORIDE 0.9% INJ 100 ML IV PRN ×2 (12:45→13:15)
[2017-08-21] MEDS ORDERED: INSULIN HUMAN REGULAR 1,000 UNITS/10 ML VIAL IV PUSH ONE (12:45)
[2017-08-21] MEDS ORDERED: SODIUM BICARBONATE 8.4% SOLN 50 MEQ/50 ML VIAL IV PUSH PRN ×4 (12:45→13:15)
[2017-08-21] MEDS ORDERED: POTASSIUM CHLOR 20 MEQ PREMIX 100 ML IV PRN ×11 (12:45→13:15)
[2017-08-21] MEDS ORDERED: MAGNESIUM HYDROXIDE SUSP 30 ML CUP PO PRN (13:15)
[2017-08-21] MEDS ORDERED: BISACODYL 10 MG SUPP RECTAL PRN (13:15)
[2017-08-21] MEDS ORDERED: SENNOSIDES 8.6 MG TAB PO PRN (13:15)
[2017-08-21] MEDS ORDERED: CHLORHEXIDINE GLUCONATE 2 % 1 PACK (2 CLOTHS) TOP PRN (13:15)
[2017-08-21] MEDS ORDERED: MISCELLANEOUS NURSING INFORMATION XX SCH (13:15)
[2017-08-21] MEDS ORDERED: LACTULOSE SYRUP 20 GM/30 ML CUP PO PRN (13:15)
[2017-08-21] MEDS ORDERED: SODIUM CHLORIDE 0.9% FLUSH 10 ML FLUSH IV FLUSH PRN (13:15)
[2017-08-21] MEDS: SODIUM CHLOR 0.9% 1000 ML INJ 1,000 ML IV SCH ×3 (13:25→21:26)
[2017-08-21] MEDS: POTASSIUM CHLOR 20 MEQ PREMIX 100 ML IV PRN ×2 (13:57→17:50)
--- NOTE | 2017-08-21 14:38 | HHI.HP ---
HPI Service Critical Care Medicine Primary Care Physician Scott Wright MD (Paul) Admission Diagnosis DKA, acute kidney injury, elevated troponin, noncompliance Diagnosis: Travel History International Travel<30 Days: No Contact w/Intl Traveler <30 Da: No Traveled to Known Affected Are: No History of Present Illness HPI This is a 62 year-old male that presented with generalized weakness. He does complain of generalized malaise, dry mouth, polyuria, polyphagia, nausea , and vomiting. The patient has a history of type 1 diabetes since he was in his 30s, he has been out of his insulin for the last 48 hours. The patient states he was prescribed Levemir 10 units twice a day with sliding scale insulin , NovoLog. However, the patient states he is unable to afford his medications and has not had any insulin the last 2 days. Patient was last hospitalized for right lower lobe pneumonia. His past medical history also includes a history of right above-knee amputation secondary to peripheral vascular disease. He does have a history of tobacco use, last cigarette was this morning. Symptoms are mild to moderate, possibly exacerbated by noncompliance and financial issues. The patient's medical history is significant for coronary artery disease with severe mitral valve regurgitation however he was deemed not a surgical candidate. Laboratory studies were performed revealing leukocytosis and a beta hydroxybutyrate elevation 9.15, but the glucose level 619. Anion gap was noted to be 25, critical care medicine was consulted. History PFSH Past Medical History Hx Anticoagulant Therapy: Yes Arthritis: Yes Asthma: No Autoimmune Disease: No Blood Disorders: No Anxiety: Yes Depression: Yes Heart Rhythm Problems: No Cancer: No Cardiovascular Problems: Yes High Cholesterol: Yes Chemotherapy: No Chest Pain: No Congestive Heart Failure: No COPD: No Cerebrovascular Accident: No Coronary Artery Disease: Yes Diabetes: Yes Patient Takes Glucophage: No Diminished Hearing: Yes ([place]) Endocrine: Yes Gastrointestinal Disorders: Yes (ESOPHAGEAL ULCER? stricture, stretch) GERD: Yes Glaucoma: No Genitourinary: No Headaches: No Hepatitis: No Hiatal Hernia: No Hypertension: Yes Immune Disorder: No Implanted Vascular Access Dvce: Yes Kidney Stones: No Musculoskeletal: Yes (cervical and lumbar spine pt states he has bulging disc R AKA) Neurologic: Yes (NEUROPATHY pvd) Psychiatric: No Reproductive: No Respiratory: Yes Immunizations Current: No Migraines: No Myocardial Infarction: Yes Radiation Therapy: No Renal Failure: No Seizures: Yes Sickle Cell Disease: No Sleep Apnea: No Thyroid Disease: Yes Ulcer: No Tetanus Vaccination: > 5 Years Influenza Vaccination: Yes PNEUMOCCOCAL Vaccine (Year): 2 Past Surgical History Abdominal Surgery: Yes (EXP. LEFT BRACHIAL PLEXIS,APPEND., COLECTOMY) AICD: No Appendectomy: Yes Arteriovenous Shunt: No Body Medical Devices: Right leg amputaion wears prosthesis Cardiac Surgery: Yes (CABGX4) Cholecystectomy: No Coronary Artery Bypass Graft: Yes (2005) Ear Surgery: No Endocrine Surgery: No Eye Surgery: No Genitourinary Surgery: No Gynecologic Surgery: No Insulin Pump: No Joint Replacement: No Neurologic Surgery: No Oral Surgery: No Pacemaker: No Thoracic Surgery: Yes (L5, S1, fusions) Tonsillectomy: Yes Other Surgery: Yes (2 HYDROCELE) Social History Alcohol Use: No Tobacco Use: Yes (quit 2 years ago) Substance Use: No Allergies-Medications Allergies-Medications (Allergen,Severity, Reaction): Coded Allergies: No Known Allergies (Unverified , 08/21/17) Reported Meds & Prescriptions Reported Meds & Active Scripts Active Symbicort Inh (Budesonide/Formoterol Fumarate) 160-4.5 Mcg/Act Aero 1 Puff INH Q12HR Prednisone 20 Mg Tab 20 Mg PO DAILY Furosemide 20 Mg Tab 20 Mg PO BID@09,18 Isosorbide Mononitrate ER (Isosorbide Mononitrate) 60 Mg Tab 60 Mg PO DAILY@07 [place] (Hydrocodone-Acetaminophen) 10-325 Mg Tab 1 Tab PO Q6HR 7 Days DO NOT USE THIS MEDICINE IF YOU WILL DRIVE A CAR OR USE A MACHINE, ONLY USE IT WHEN RESTING AT HOME. Levemir Inj (Insulin Detemir) 1,000 unit/ 10 ML Vial 8 Units SQ BID 30 Days Do not mix with any other Insulin. Novolog Inj (Insulin Aspart) 1,000 Unit/10 Ml Vial 1-9 Units SQ ACHS sugars less than 70,(0)units; sugars 150-199,(1) unit; sugars 200-249,(3) units; sugars 250-299,(5) units; sugars 300-349,(7) units; sugars greater than 349,(9) units. inform PCP if < 70 or > 400. Lisinopril 5 Mg Tab 5 Mg PO DAILY Epinephrine Inj 1 Mg/Ml (1 Ml) Inj 0.3 Mg IV PUSH ONCE PRN Atorvastatin (Atorvastatin Calcium) 80 Mg Tab 80 Mg PO HS 30 Days Prilosec (Omeprazole Magnesium) 20 Mg Tab 1 Tab PO BID Lyrica (Pregabalin) 100 Mg Cap 100 Mg PO TID Adult Aspirin EC Low Strength (Aspirin) 81 Mg Tabec 81 Mg PO DAILY 30 Days Nortriptyline (Nortriptyline HCl) 75 Mg Cap 75 Mg PO HS Plavix (Clopidogrel Bisulfate) 75 Mg Tab 75 Mg PO DAILY Synthroid (Levothyroxine Sodium) 100 Mcg Tab 100 Mcg PO DAILY@06 Carvedilol 6.25 Mg Tab 6.25 Mg PO BID Reported B12 (Cyanocobalamin) 1,000 Mcg Tab 1,000 Mcg PO DAILY ROS Review of Systems Except as stated in HPI: all other systems reviewed are Neg General / Constitutional: No: Fever HENT: No: Lightheadedness Cardiovascular: No: Chest Pain or Discomfort Respiratory: No: Shortness of Breath Gastrointestinal: Positive: Nausea, Vomiting, No: Diarrhea, Abdominal Pain Genitourinary: No: Dysuria Musculoskeletal: Positive: Weakness, Other (right above-knee amputation) Endocrine: Positive: Polyuria, Polydipsia Physical Exam Vital Signs Vital Signs Date Time Temp Pulse Resp B/P (MAP) Pulse Ox O2 Delivery O2 Flow Rate FiO2 08/21/17 12:29 101 18 106/60 (75) 100 Room Air 08/21/17 11:55 97.8 102 16 103/60 (74) 100 Room Air 08/21/17 11:14 100 18 131/62 (85) 100 Room Air 08/21/17 11:00 20 100 Room Air 08/21/17 10:50 96 18 99 Room Air 08/21/17 10:33 98.2 99 18 122/59 (80) 100 Room Air Physical Exam GENERAL: Cachectic dehydrated, malnourished male looking older than stated age in moderate distress. SKIN: Warm and dry. HEAD: Atraumatic. Normocephalic. EYES: Pupils equal and round. No scleral icterus. No injection or drainage. ENT: No nasal bleeding or discharge. Mucous membranes dry NECK: Trachea midline. No JVD. CARDIOVASCULAR: Normal rate, regular rhythm. RESPIRATORY: No accessory muscle use. Mild expiratory bruits bilaterally. Breath sounds equal bilaterally. GASTROINTESTINAL: Abdomen soft, non-tender, nondistended. No guarding. MUSCULOSKELETAL: Extremities without clubbing, cyanosis, or edema. Right AKA with prosthesis noted. NEUROLOGICAL: GCS 15 Awake and alert. RASS 0. No gross focal/sensory deficits. Follows commands in all 4 extremities. Laboratory Laboratory Tests Test 08/21/17 11:00 08/21/17 11:15 08/21/17 13:40 Blood Gas Puncture Site IV Blood Gas Patient Temperature 98.6 Venous Blood pH 7.32 Venous Blood Partial Pressure CO2 23 Venous Blood Partial Pressure O2 45 Venous Blood HCO3 12 Venous Blood Oxygen Saturation 72 Venous Blood Oxygen Content 9.7 Venous Blood Base Excess -13.4 Oxygen Delivery Device ROOM AIR Blood Gas Inspired Oxygen 21 White Blood Count 16.3 Red Blood Count 4.03 Hemoglobin 10.1 Hematocrit 32.8 Mean Corpuscular Volume 81.3 Mean Corpuscular Hemoglobin 25.1 Mean Corpuscular Hemoglobin Concent 30.9 Red Cell Distribution Width 20.3 Platelet Count 257 Mean Platelet Volume 9.9 Neutrophils (%) (Auto) 91.2 Lymphocytes (%) (Auto) 6.4 Monocytes (%) (Auto) 1.3 Eosinophils (%) (Auto) 0.1 Basophils (%) (Auto) 1.0 Neutrophils # (Auto) 14.8 Lymphocytes # (Auto) 1.0 Monocytes # (Auto) 0.2 Eosinophils # (Auto) 0.0 Basophils # (Auto) 0.2 CBC Comment DIFF FINAL Differential Comment Urine Color LIGHT-YELLOW Urine Turbidity CLEAR Urine pH 5.5 Urine Specific [place] 1.016 Urine Protein NEG Urine Glucose (UA) 1000 Urine Ketones 80 Urine Occult Blood NEG Urine Nitrite NEG Urine Bilirubin NEG Urine Urobilinogen LESS THAN 2.0 Urine Leukocyte Esterase NEG Urine RBC LESS THAN 1 Urine WBC LESS THAN 1 Microscopic Urinalysis Comment CULT NOT INDICATED Blood Urea Nitrogen 36 Creatinine 1.51 Random Glucose 619 Total Protein 7.6 Albumin 3.4 Calcium Level 10.1 Magnesium Level 2.2 Alkaline Phosphatase 166 Aspartate Amino Transf (AST/SGOT) 10 Alanine Aminotransferase (ALT/SGPT) 16 Total Bilirubin 0.9 Sodium Level 129 Potassium Level 4.3 Chloride Level 90 Carbon Dioxide Level 14.4 Anion Gap 25 Estimat Glomerular Filtration Rate 47 Lactic Acid Level 2.7 Troponin I 0.08 Lipase 26 B-Hydroxybutyrate 9.15 Result Diagram: 08/21/17 1115 08/21/17 1115 Septic Shock Reassessment Septic shock perfusion: reassessment completed Caprini VTE Risk Assessment Caprini VTE Risk Assessment: Mod/High Risk (score >= 2) Caprini Risk Assessment Model Point Value = 1 Point Value = 2 Point Value = 3 Point Value = 5 Age 41-60 Minor surgery BMI > 25 kg/m2 Swollen legs Varicose veins or History of unexplained or recurrent spontaneous Oral contraceptives or hormone replacement Sepsis (< 1 month) Serious lung disease, including pneumonia (< 1 month) Abnormal pulmonary function Acute myocardial infarction Congestive heart failure (< 1 month) History of inflammatory bowel disease Medical patient at bed rest Age 61-74 Arthroscopic surgery Major open surgery (> 45 min) Laparoscopic surgery (> 45 min) Malignancy Confined to bed (> 72 hours) Immobilizing plaster cast Central venous access Age >= 75 History of VTE Family history of VTE Factor V Leiden Prothrombin [id number] Lupus anticoagulant Anticardiolipin antibodies Elevated serum homocysteine Heparin-induced thrombocytopenia Other congenital or acquired thrombophilia Stroke (< 1 month) Elective arthroplasty Hip, pelvis, or leg fracture Acute spinal cord injury (< 1 month) Prophylaxis Regimen Total Risk Factor Score Risk Level Prophylaxis Regimen 0-1 Low Early ambulation 2 Moderate Order ONE of the following: *Sequential Compression Device (SCD) *Heparin 5000 units SQ BID 3-4 Higher Order ONE of the following medications: *Heparin 5000 units SQ TID *Enoxaparin/Lovenox 40 mg SQ daily (WT < 150 kg, CrCl > 30 mL/min) *Enoxaparin/Lovenox 30 mg SQ daily (WT < 150 kg, CrCl > 10-29 mL/min) *Enoxaparin/Lovenox 30 mg SQ BID (WT < 150 kg, CrCl > 30 mL/min) AND/OR *Sequential Compression Device (SCD) 5 or more Highest Order ONE of the following medications: *Heparin 5000 units SQ TID (Preferred with Epidurals) *Enoxaparin/Lovenox 40 mg SQ daily (WT < 150 kg, CrCl > 30 mL/min) *Enoxaparin/Lovenox 30 mg SQ daily (WT < 150 kg, CrCl > 10-29 mL/min) *Enoxaparin/Lovenox 30 mg SQ BID (WT < 150 kg, CrCl > 30 mL/min) AND *Sequential Compression Device (SCD) Assessment and Plan Assessment and Plan Is a 62-year-old male with DKA secondary to noncompliance. Patient is noted to have a leukocytosis and is status post recent admission in 08/10/17 for right lower lobe pneumonia. Comorbidities to include coronary artery disease with cardiomyopathy and ejection fraction of 35-40%, with moderate to severe MVR. Admit to ICU Plan by systems: Neurologic: Diabetic neuropathy Noncompliance/adherence to medication regimen Continue patient's home meds Lyrica, and Nortriptyline Acetaminophen 650 mg every 6 hours when necessary for pain Respiratory: COPD Tobaccoism Continue patient's home meds Symbicort Duo nebs every 4 hours when necessary Patient counseled on tobacco cessation Consider nicotine patch Obtain chest x-ray patient status post admission for right lower lobe pneumonia in 08/10/17 Cardiovascular: Coronary artery disease Cardiomyopathy Moderate to severe mitral regurgitation Continue patient's home meds ASA, Plavix, statin, Isordil, carvedilol, and lisinopril Patient's previous admission reveal he is not a candidate for mitral valve replacement Patient's last echo revealed EF 35-40% Renal: No Pelaez indicated -- Strict I/Os FEN/GI: Maintain nothing by mouth status-until anion gap closes Normal saline 250 cc/hour Bowel regimen Heme/ID: Leukocytosis Monitor CBC, WBC 16 Obtain blood urine and sputum culture Patient previously admitted with a right lower lobe pneumonia 08/10/17 Endocrine: Diabetes mellitus type 1 DKA Hypothyroidism Initiate DKA protocol-patient received 7 units of regular insulin IV push Insulin drip 7 units per hour Continue Synthroid 100 mcgs daily Prophylaxis: GI Prophylaxis Famotidine DVT Prophylaxis -- SCDs Heparin twice a day Lines: Peripheral IVs 2. Central line if indicated. Dispo: my billing statement This patient remains critically ill with one or more organ systems which are or may become a threat to life. I have spent in excess of 39 minutes discontinuously in the care and management of this patient. This time is exclusive of procedures, and includes, but is not limited to, evaluation of the patient, review of the medical record, discussions with family, consultants, nursing staff, or respiratory therapy, and documentation in the medical record. Code Status Full Discussed Condition With Dr. Araya, ED RN at bedside and patient Camilla Evangelista MD Aug 21, 2017 14:38
[2017-08-21] MEDS: HEPARIN SODIUM - SQ 10,000 UNITS/ML VIAL SQ SCH (15:24)
--- NOTE | 2017-08-21 17:08 | RADRPT ---
EXAM DATE/TIME: 08/21/2017 15:05 [place] COMPARISON: CHEST SINGLE AP, August 05, 2017, 2:35. INDICATIONS : Short of breath. MEDICAL HISTORY : Hypertension. Diabetes mellitus type II. Myocardial infarction. PVD CAD SURGICAL HISTORY : CABG. ENCOUNTER: Initial ACUITY: 4 - 6 days PAIN SCORE: Non-responsive. LOCATION: Bilateral chest FINDINGS: Stable median sternotomy wires. Continued diffuse interstitial prominence with improved aeration of t he lower lobes bilaterally. There is likely trace residual left pleural effusion. Cardiomediastinal c ontours are stable. Remainder of the exam is unchanged. CONCLUSION: 1. Improved positive fluid balance with significantly improved aeration of the lower lobes bilaterall y. 2. Likely residual trace left pleural effusion. Varun De Paz MD on August 21, 2017 at 17:04 Board Certified Radiologist. This report was verified electronically.
[2017-08-21 18:22] LABS: BICARBONATE 21.5 MEQ/L (21.0-32.0); CALCIUM 8.7 MG/DL (8.5-10.1); CREATININE 1.76 MG/DL (0.60-1.30); PHOSPHORUS 2.7 MG/DL (2.5-4.9)
[2017-08-21] MEDS: PREGABALIN 100 MG CAP PO SCH (19:09)
[2017-08-21] MEDS: DEXT 5%-NACL 0.9% 1000 ML INJ 1,000 ML IV SCH ×2 (19:51→20:32)
[2017-08-21] MEDS: FAMOTIDINE 20 MG/2 ML VIAL IV PUSH SCH (21:00)
[2017-08-21] MEDS: BUDESONIDE-FORMOTEROL 160/4.5 MCG INHALER INH SCH (21:20)
[2017-08-21] MEDS: SODIUM CHLORIDE 0.9% FLUSH 10 ML FLUSH IV FLUSH SCH (21:21)
[2017-08-21] MEDS: NORTRIPTYLINE HCL 25 MG CAP PO SCH (21:22)
[2017-08-21] MEDS: CARVEDILOL 6.25 MG TAB PO SCH (21:23)
[2017-08-21] MEDS: FAMOTIDINE 20 MG TAB PO SCH (21:25)
[2017-08-21] MEDS: DOCUSATE SODIUM 50 MG/SENNA 8.6 MG TAB PO SCH (21:25)
[2017-08-21] MEDS: ATORVASTATIN 80 MG TAB PO SCH (21:25)
[2017-08-22] VITALS (14 sets, daily range): BP systolic 88–110; BP diastolic 53–58; PULSE 80–92; RESP 14–24; TEMP 97.9–100; O2SAT 91–98
[2017-08-22] MEDS: DEXT 5%-NACL 0.9% 1000 ML INJ 1,000 ML IV SCH (00:46)
[2017-08-22] MEDS: SODIUM CHLOR 0.9% 1000 ML INJ 1,000 ML IV SCH (00:47)
[2017-08-22 01:31] LABS: BICARBONATE 21.7 MEQ/L (21.0-32.0); BLOOD UREA NITROGEN 41 MG/DL (7-18); CALCIUM 7.7 MG/DL (8.5-10.1); CHLORIDE 110 MEQ/L (98-107); GLOMERULAR FILTRATION RATE 52 ML/MIN (>89); GLUCOSE,RANDOM 123 MG/DL (74-106); MAGNESIUM 1.8 MG/DL (1.5-2.5); PHOSPHORUS 2.9 MG/DL (2.5-4.9); SODIUM (NA) 142 MEQ/L (136-145)
[2017-08-22] MEDS: CHLORHEXIDINE GLUCONATE 2 % 1 PACK (2 CLOTHS) TOP SCH (03:13)
[2017-08-22] MEDS: HEPARIN SODIUM - SQ 10,000 UNITS/ML VIAL SQ SCH ×2 (03:13→14:45)
[2017-08-22 04:25] LABS: AUTOMATED NEUTROPHIL # 15.2 TH/MM3 (1.8-7.7); BASOPHIL # 0.2 TH/MM3 (0-0.2); BASOPHIL % 0.8 % (0.0-2.0); EOSINOPHIL # 0.1 TH/MM3 (0-0.4); EOSINOPHIL % 0.6 % (0.0-4.0); HEMATOCRIT 26.5 % (39.0-51.0); HEMOGLOBIN 8.4 GM/DL (13.0-17.0); LYMPH % 17.8 % (9.0-44.0); LYMPHOCYTE # 3.5 TH/MM3 (1.0-4.8); MEAN CELL VOLUME 78.3 FL (80.0-100.0); MEAN CORPUSCULAR HEMOGLOBIN 24.9 PG (27.0-34.0); MEAN CORPUSCULAR HGB CONC 31.8 % (32.0-36.0); MEAN PLATELET VOLUME 8.8 FL (7.0-11.0); MONO % 4.4 % (0.0-8.0); MONOCYTE # 0.9 TH/MM3 (0-0.9); NEUT % 76.4 % (16.0-70.0); PLATELET COUNT 223 TH/MM3 (150-450); RED BLOOD COUNT 3.39 MIL/MM3 (4.50-5.90); RED CELL DISTRIBUTION WIDTH 19.4 % (11.6-17.2); WHITE BLOOD COUNT 19.9 TH/MM3 (4.0-11.0)
[2017-08-22 04:52] LABS: BICARBONATE 21.1 MEQ/L (21.0-32.0); CALCIUM 7.6 MG/DL (8.5-10.1); CREATININE 1.41 MG/DL (0.60-1.30); PHOSPHORUS 3.2 MG/DL (2.5-4.9)
[2017-08-22] MEDS ORDERED: GLUCAGON 1 MG/ML VIAL OTHER PRN ×2 (05:30→07:15)
[2017-08-22] MEDS ORDERED: DC previous DKA orders (HMC 1917) ONE (05:30)
[2017-08-22] MEDS ORDERED: DC Insulin drip 2 hrs post basal insulin dose ONE (05:30)
[2017-08-22] MEDS ORDERED: DEXTROSE 50% IN WATER 50 ML VIAL(D50) IV PUSH PRN ×2 (05:30→07:15)
[2017-08-22] MEDS: LEVOTHYROXINE SODIUM 100 MCG TAB PO SCH (06:05)
[2017-08-22] MEDS: ISOSORBIDE MONONITRATE 60 MG TAB PO SCH (06:05)
[2017-08-22] MEDS ORDERED: INSULIN DETEMIR 100 UNITS/ML VIAL SQ ONE (07:00)
[2017-08-22] MEDS: FAMOTIDINE 20 MG/2 ML VIAL IV PUSH SCH ×2 (09:00→21:00)
[2017-08-22] MEDS: BUDESONIDE-FORMOTEROL 160/4.5 MCG INHALER INH SCH ×2 (09:10→21:11)
[2017-08-22] MEDS: CLOPIDOGREL 75 MG TAB PO SCH (09:11)
[2017-08-22] MEDS: LISINOPRIL 5 MG TAB PO SCH (09:11)
[2017-08-22] MEDS: CARVEDILOL 6.25 MG TAB PO SCH ×2 (09:11→21:08)
[2017-08-22] MEDS: FAMOTIDINE 20 MG TAB PO SCH ×2 (09:11→21:09)
[2017-08-22] MEDS: ASPIRIN EC 81 MG TABEC PO SCH (09:11)
[2017-08-22] MEDS: PREGABALIN 100 MG CAP PO SCH ×3 (09:11→19:01)
[2017-08-22] MEDS: DOCUSATE SODIUM 50 MG/SENNA 8.6 MG TAB PO SCH ×2 (09:11→21:00)
[2017-08-22] MEDS: SODIUM CHLORIDE 0.9% FLUSH 10 ML FLUSH IV FLUSH SCH ×2 (09:12→21:00)
[2017-08-22] MEDS: MEDIUM DOSE INSULIN NOVOLIN REGULAR SUPPLEMENTAL SCALE SQ SCH ×4 (11:03→22:00)
--- NOTE | 2017-08-22 13:01 | EKG ---
Date Performed: 08/21/2017 Time Performed: 14:36:22 PTAGE: 62 years EKG: CONSIDER ACUTE ST ELEVATION VA Sinus tachycardia with PVC(s). Possible left atrial abnormality Left bundle branch block Lateral ST elevation, CONSIDER ACUTE INFARCT Abnormal ECG PREVIOUS TRACING : 08/21/2017 11.09 DOCTOR: Bautista Rodriguez Interpretating Date/Time 08/22/2017 12:53:03
--- NOTE | 2017-08-22 13:07 | EKG ---
Date Performed: 08/21/2017 Time Performed: 11:09:14 PTAGE: 62 years EKG: ventricular paced MARKED LEFT AXIS DEVIATION POSSIBLE RIGHT VENTRICULAR CONDUCTION DELAY LE FT BUNDLE BRANCH BLOCK ABNORMAL ECG PREVIOUS TRACING : 08/03/2017 02.06 DOCTOR: Bautista Rodriguez Interpretating Date/Time 08/22/2017 12:57:41
--- NOTE | 2017-08-22 13:17 | HHI.CCPN ---
Subjective Remarks/Hospital Course This is a 62 year-old male that presented with generalized weakness. He does complain of generalized malaise, dry mouth, polyuria, polyphagia, nausea , and vomiting. The patient has a history of type 1 diabetes since he was in his 30s, he has been out of his insulin for the last 48 hours. The patient states he was prescribed Levemir 10 units twice a day with sliding scale insulin , NovoLog. However, the patient states he is unable to afford his medications and has not had any insulin the last 2 days. Patient was last hospitalized for right lower lobe pneumonia. His past medical history also includes a history of right above-knee amputation secondary to peripheral vascular disease. He does have a history of tobacco use, last cigarette was this morning. Symptoms are mild to moderate, possibly exacerbated by noncompliance and financial issues. The patient's medical history is significant for coronary artery disease with severe mitral valve regurgitation however he was deemed not a surgical candidate. Laboratory studies were performed revealing leukocytosis and a beta hydroxybutyrate elevation 9.15, but the glucose level 619. Anion gap was noted to be 25, critical care medicine was consulted. Subjective: 08/22: No acute events overnight. Anion gap closed. Insulin drip discontinued the patient continues on Levemir twice a day. Patient tolerating a diet. Objective Vital Signs Date Time Temp Pulse Resp B/P (MAP) Pulse Ox O2 Delivery O2 Flow Rate FiO2 08/22/17 06:00 80 08/22/17 04:00 97.9 14 88/58 (68) 92 08/21/17 19:09 Nasal Cannula 3.00 Intake and Output 08/22/17 08/22/17 08/22/17 07:59 15:59 23:59 Intake Total 0 ml Output Total 450 ml Balance -450 ml Result Diagram: 08/22/17 0405 08/22/17 0405 Imaging Last Impressions Chest X-Ray 08/21/17 0000 Signed Impressions: Service Date/Time: Monday, August 21, 2017 15:05 - CONCLUSION: 1. Improved positive fluid balance with significantly improved aeration of the lower lobes bilaterally. 2. Likely residual trace left pleural effusion. Varun De Paz MD Objective Remarks GENERAL: Cachectic dehydrated, malnourished male looking older than stated age. SKIN: Warm and dry. HEAD: Atraumatic. Normocephalic. EYES: Pupils equal and round. No scleral icterus. No injection or drainage. ENT: No nasal bleeding or discharge. Mucous membranes dry NECK: Trachea midline. No JVD. CARDIOVASCULAR: Normal rate, regular rhythm. RESPIRATORY: No accessory muscle use. Mild expiratory wheezes bilaterally. Breath sounds equal bilaterally. GASTROINTESTINAL: Abdomen soft, non-tender, nondistended. No guarding. MUSCULOSKELETAL: Extremities without clubbing, cyanosis, or edema. Right AKA with prosthesis noted. NEUROLOGICAL: GCS 15 Awake and alert. RASS 0. No gross focal/sensory deficits. Follows commands in all 4 extremities. A/P Assessment and Plan Plan by systems: Neurologic: Diabetic neuropathy Noncompliance/adherence to medication regimen Continue patient's home meds Lyrica, and Nortriptyline Acetaminophen 650 mg every 6 hours when necessary for pain Respiratory: COPD Tobaccoism Continue patient's home meds Symbicort Duo nebs every 4 hours when necessary Patient counseled on tobacco cessation Consider nicotine patch Obtain chest x-ray patient status post admission for right lower lobe pneumonia in 08/10/17 Cardiovascular: Coronary artery disease Cardiomyopathy Moderate to severe mitral regurgitation Continue patient's home meds ASA, Plavix, statin, Isordil, carvedilol, and lisinopril Patient's previous admission reveal he is not a candidate for mitral valve replacement Patient's last echo revealed EF 35-40% Renal: No Pelaez indicated -- Strict I/Os FEN/GI: 1800-calorie ADA diet IV Hep-Lock Bowel regimen Heme/ID: Leukocytosis Monitor CBC, WBC 16->19 today Obtain blood urine and sputum culture Patient previously admitted with a right lower lobe pneumonia 08/10/17 Endocrine: Diabetes mellitus type 1 DKA Hypothyroidism Initiate DKA protocol-patient received 7 units of regular insulin IV push Insulin drip 7 units per hour dc'd, patient transitioned to Levemir Continue Synthroid 100 mcgs daily Prophylaxis: GI Prophylaxis Famotidine DVT Prophylaxis -- SCDs Heparin twice a day Lines: Peripheral IVs 2. Central line if indicated. Dispo: Level 2 follow up Plan transfer to [facility] floor when bed available. Plan transfer to [facility] in the Physician Camilla Ornelas MD Aug 22, 2017 13:17
[2017-08-22 13:35] LABS: BICARBONATE 20.7 MEQ/L (21.0-32.0); BLOOD UREA NITROGEN 37 MG/DL (7-18); CALCIUM 7.6 MG/DL (8.5-10.1); CHLORIDE 111 MEQ/L (98-107); CREATININE 1.18 MG/DL (0.60-1.30); GLOMERULAR FILTRATION RATE 63 ML/MIN (>89); GLUCOSE,RANDOM 186 MG/DL (74-106); PHOSPHORUS 2.9 MG/DL (2.5-4.9); SODIUM (NA) 141 MEQ/L (136-145)
[2017-08-22 14:50] LABS: ALBUMIN 2.2 GM/DL (3.4-5.0); ALKALINE PHOSPHATASE 109 U/L (45-117); ALT (GPT) 19 U/L (12-78); TOTAL BILIRUBIN ADULT 0.3 MG/DL (0.2-1.0); TOTAL PROTEIN 5.1 GM/DL (6.4-8.2)
[2017-08-22 15:16] LABS: AST (GOT) 62 U/L (15-37)
[2017-08-22] MEDS: ATORVASTATIN 80 MG TAB PO SCH (21:08)
[2017-08-22] MEDS: NORTRIPTYLINE HCL 25 MG CAP PO SCH (21:09)
[2017-08-22] MEDS: MORPHINE SULFATE 2 MG/ML INJ IV PUSH PRN (23:44)
[2017-08-23] VITALS (12 sets, daily range): BP systolic 96–125; BP diastolic 58–80; PULSE 81–92; RESP 16–18; TEMP 97.2–98.1; O2SAT 95–98
[2017-08-23] MEDS: MEDIUM DOSE INSULIN NOVOLIN REGULAR SUPPLEMENTAL SCALE SQ SCH ×6 (02:00→21:01)
[2017-08-23] MEDS: HEPARIN SODIUM - SQ 10,000 UNITS/ML VIAL SQ SCH ×2 (02:10→13:32)
[2017-08-23] MEDS: CHLORHEXIDINE GLUCONATE 2 % 1 PACK (2 CLOTHS) TOP SCH (04:00)
[2017-08-23] MEDS: MORPHINE SULFATE 2 MG/ML INJ IV PUSH PRN ×5 (04:33→21:54)
[2017-08-23] MEDS: RESP: ALBUTEROL 2.5 MG/IPRATROPIUM 0.5 MG NEB (PRN) INH ×3 (05:44→21:09)
[2017-08-23] MEDS: LEVOTHYROXINE SODIUM 100 MCG TAB PO SCH (06:36)
[2017-08-23] MEDS: ISOSORBIDE MONONITRATE 60 MG TAB PO SCH (06:36)
[2017-08-23] MEDS: DOCUSATE SODIUM 50 MG/SENNA 8.6 MG TAB PO SCH ×2 (09:00→21:00)
[2017-08-23] MEDS: FAMOTIDINE 20 MG/2 ML VIAL IV PUSH SCH ×2 (09:00→21:00)
[2017-08-23] MEDS: BUDESONIDE-FORMOTEROL 160/4.5 MCG INHALER INH SCH ×2 (09:20→21:01)
[2017-08-23] MEDS: SODIUM CHLORIDE 0.9% FLUSH 10 ML FLUSH IV FLUSH SCH ×2 (09:20→21:00)
[2017-08-23] MEDS: CLOPIDOGREL 75 MG TAB PO SCH (09:21)
[2017-08-23] MEDS: FAMOTIDINE 20 MG TAB PO SCH ×2 (09:21→21:00)
[2017-08-23] MEDS: CARVEDILOL 6.25 MG TAB PO SCH ×2 (09:21→21:00)
[2017-08-23] MEDS: LISINOPRIL 5 MG TAB PO SCH (09:22)
[2017-08-23] MEDS: ASPIRIN EC 81 MG TABEC PO SCH (09:22)
[2017-08-23] MEDS: INSULIN DETEMIR 100 UNITS/ML VIAL SQ SCH (09:22)
[2017-08-23] MEDS: PREGABALIN 100 MG CAP PO SCH ×3 (10:51→17:48)
[2017-08-23] MEDS: NORTRIPTYLINE HCL 25 MG CAP PO SCH (21:00)
[2017-08-23] MEDS: ATORVASTATIN 80 MG TAB PO SCH (21:01)
[2017-08-23 22:21] LABS: HEMOGLOBIN A1C 8.5 % (4.3-6.0)
[2017-08-24] VITALS: BP 115/86; PULSE 95; RESP 20; TEMP 97.8; O2SAT 98
[2017-08-24] MEDS: MORPHINE SULFATE 2 MG/ML INJ IV PUSH PRN ×3 (01:56→10:53)
[2017-08-24] MEDS: HEPARIN SODIUM - SQ 10,000 UNITS/ML VIAL SQ SCH ×2 (01:57→13:05)
[2017-08-24] MEDS: MEDIUM DOSE INSULIN NOVOLIN REGULAR SUPPLEMENTAL SCALE SQ SCH ×4 (02:08→13:05)
[2017-08-24] MEDS: CHLORHEXIDINE GLUCONATE 2 % 1 PACK (2 CLOTHS) TOP SCH (03:08)
[2017-08-24 04:00] VITALS: BP 142/85; PULSE 91; PULSE 95; RESP 20; TEMP 97.8; O2SAT 97
[2017-08-24] MEDS: LEVOTHYROXINE SODIUM 100 MCG TAB PO SCH (06:14)
[2017-08-24] MEDS: ISOSORBIDE MONONITRATE 60 MG TAB PO SCH (06:14)
[2017-08-24 08:00] VITALS: BP 137/89; PULSE 84; PULSE 86; RESP 18; TEMP 98; O2SAT 95
[2017-08-24] MEDS: BUDESONIDE-FORMOTEROL 160/4.5 MCG INHALER INH SCH (08:34)
[2017-08-24] MEDS: SODIUM CHLORIDE 0.9% FLUSH 10 ML FLUSH IV FLUSH SCH (08:34)
[2017-08-24] MEDS: FAMOTIDINE 20 MG/2 ML VIAL IV PUSH SCH (08:34)
[2017-08-24] MEDS: CARVEDILOL 6.25 MG TAB PO SCH (08:35)
[2017-08-24] MEDS: FAMOTIDINE 20 MG TAB PO SCH (08:35)
[2017-08-24] MEDS: PREGABALIN 100 MG CAP PO SCH ×2 (08:35→13:05)
[2017-08-24] MEDS: ASPIRIN EC 81 MG TABEC PO SCH (08:35)
[2017-08-24] MEDS: DOCUSATE SODIUM 50 MG/SENNA 8.6 MG TAB PO SCH (08:35)
[2017-08-24] MEDS: CLOPIDOGREL 75 MG TAB PO SCH (08:35)
[2017-08-24] MEDS: LISINOPRIL 5 MG TAB PO SCH (08:35)
[2017-08-24] MEDS: INSULIN DETEMIR 100 UNITS/ML VIAL SQ SCH (08:36)
--- NOTE | 2017-08-24 09:01 | HHI.PR ---
Subjective Remarks defrred entry - patient seen on 08/23/17 - 8:30 pm Denies cp/sob. As per RN report patient became hypoglycemic and had to be administered D50 Blood sugars stable Objective Vitals Vital Signs Date Time Temp Pulse Resp B/P (MAP) Pulse Ox O2 Delivery O2 Flow Rate FiO2 08/24/17 08:00 98.0 84 18 137/89 (105) 95 08/24/17 04:00 95 08/24/17 04:00 97.8 91 20 142/85 (104) 97 08/24/17 00:00 95 08/24/17 00:00 97.8 95 20 115/86 (96) 98 08/23/17 21:10 97 08/23/17 20:30 98 Room Air 08/23/17 20:30 92 08/23/17 20:00 97.2 88 16 119/80 (93) 98 08/23/17 16:29 Room Air 08/23/17 16:17 97.5 85 17 121/72 (88) 97 08/23/17 16:00 86 08/23/17 12:13 97.3 83 17 122/73 (89) 97 08/23/17 12:00 81 08/23/17 10:00 Room Air I/O 08/23/17 08/23/17 08/23/17 08/24/17 08/24/17 08/24/17 07:00 15:00 23:00 07:00 15:00 23:00 Intake Total 240 ml 600 ml 640 ml Output Total 250 ml 300 ml 600 ml Balance -10 ml 300 ml 40 ml Intake Oral 240 ml 600 ml 640 ml Output Urine Total 250 ml 300 ml 600 ml # Bowel Movements 0 Result Diagram: 08/22/17 0405 08/22/17 1230 Imaging Last Impressions Chest X-Ray 08/21/17 0000 Signed Impressions: Service Date/Time: Monday, August 21, 2017 15:05 - CONCLUSION: 1. Improved positive fluid balance with significantly improved aeration of the lower lobes bilaterally. 2. Likely residual trace left pleural effusion. Varun De Paz MD Objective Remarks AAOx3 nad Clear lungs S1S2 (+) RRR, no MRG abdomen soft. non tender A/P Problem List: (1) DKA (diabetic ketoacidoses) ICD Code: E13.10 - Other specified diabetes mellitus with ketoacidosis without coma (2) Non compliance w medication regimen ICD Code: Z91.14 - Noncompliance with medication regimen Status: Acute (3) Hypothyroidism ICD Code: E03.9 - Hypothyroidism Status: Chronic (4) Diabetic neuropathy ICD Code: E11.40 - Diabetic neuropathy Status: Chronic (5) Tobacco abuse ICD Code: Z72.0 - Tobacco use Assessment and Plan Neurologic: Diabetic neuropathy Noncompliance/adherence to medication regimen Continue patient's home meds Lyrica, and Nortriptyline Acetaminophen 650 mg every 6 hours when necessary for pain Respiratory: COPD Tobaccoism Continue patient's home meds Symbicort Duo nebs every 4 hours when necessary Patient counseled on tobacco cessation Consider nicotine patch Obtain chest x-ray patient status post admission for right lower lobe pneumonia in 08/10/17 Cardiovascular: Coronary artery disease Cardiomyopathy Moderate to severe mitral regurgitation Continue patient's home meds ASA, Plavix, statin, Isordil, carvedilol, and lisinopril Patient's previous admission reveal he is not a candidate for mitral valve replacement Patient's last echo revealed EF 35-40% Renal: No Pelaez indicated -- Strict I/Os FEN/GI: 1800-calorie ADA diet IV Hep-Lock Bowel regimen Heme/ID: Leukocytosis Monitor CBC, WBC 16->19 today Obtain blood urine and sputum culture Patient previously admitted with a right lower lobe pneumonia 08/10/17 Endocrine: Diabetes mellitus type 1 DKA Hypothyroidism Initiate DKA protocol-patient received 7 units of regular insulin IV push Insulin drip 7 units per hour dc'd, patient transitioned to Levemir Continue Synthroid 100 mcgs daily 2/8 Blood sugars went very elevated this a.m., later dropped down into the 70s the patient was administered D50. Prophylaxis: GI Prophylaxis Famotidine DVT Prophylaxis -- SCDs Heparin twice a day Lines: Peripheral IVs 2. Central line if indicated. Dispo: Level 2 follow up Discharge Planning Possible discharge in a.m. watch sugars more stable. Problem Qualifiers (1) DKA (diabetic ketoacidoses): Qualified Codes: E11.10 - Type 2 diabetes mellitus with ketoacidosis without coma Jl Savage MD Aug 24, 2017 09:01
[2017-08-24 11:28] LABS: AUTOMATED NEUTROPHIL # 5.6 TH/MM3 (1.8-7.7); BASOPHIL # 0.1 TH/MM3 (0-0.2); BASOPHIL % 0.9 % (0.0-2.0); EOSINOPHIL # 0.2 TH/MM3 (0-0.4); EOSINOPHIL % 2.4 % (0.0-4.0); HEMATOCRIT 28.4 % (39.0-51.0); HEMOGLOBIN 9.3 GM/DL (13.0-17.0); LYMPH % 19.8 % (9.0-44.0); LYMPHOCYTE # 1.6 TH/MM3 (1.0-4.8); MEAN CELL VOLUME 78.3 FL (80.0-100.0); MEAN CORPUSCULAR HEMOGLOBIN 25.7 PG (27.0-34.0); MEAN CORPUSCULAR HGB CONC 32.8 % (32.0-36.0); MEAN PLATELET VOLUME 8.7 FL (7.0-11.0); MONO % 6.4 % (0.0-8.0); MONOCYTE # 0.5 TH/MM3 (0-0.9); NEUT % 70.5 % (16.0-70.0); PLATELET COUNT 183 TH/MM3 (150-450); RED BLOOD COUNT 3.63 MIL/MM3 (4.50-5.90); RED CELL DISTRIBUTION WIDTH 19.8 % (11.6-17.2)
[2017-08-24 11:44] LABS: ALBUMIN 2.6 GM/DL (3.4-5.0); ALKALINE PHOSPHATASE 152 U/L (45-117); ALT (GPT) 43 U/L (12-78); AST (GOT) 46 U/L (15-37); BICARBONATE 21.5 MEQ/L (21.0-32.0); BLOOD UREA NITROGEN 19 MG/DL (7-18); CALCIUM 7.8 MG/DL (8.5-10.1); CHLORIDE 105 MEQ/L (98-107); GLOMERULAR FILTRATION RATE 86 ML/MIN (>89); GLUCOSE,RANDOM 157 MG/DL (74-106); SODIUM (NA) 135 MEQ/L (136-145); TOTAL BILIRUBIN ADULT 0.4 MG/DL (0.2-1.0); TOTAL PROTEIN 5.8 GM/DL (6.4-8.2)
[2017-08-24 12:00] VITALS: BP 117/81; PULSE 80; PULSE 82; RESP 18; TEMP 97.5; O2SAT 97
[2017-08-24] MEDS ORDERED: ASPI1TAB56 PO (12:33)
[2017-08-24] MEDS ORDERED: PLAV75TA29 PO (12:33)
[2017-08-24] MEDS ORDERED: CARV6.252 PO (12:33)
[2017-08-24] MEDS ORDERED: NORT75CA PO (12:33)
[2017-08-24] MEDS ORDERED: ISOS60TA PO (12:33)
[2017-08-24] MEDS ORDERED: FURO20TA PO (12:33)
[2017-08-24] MEDS ORDERED: CYAN1TAB24 PO (12:33)
[2017-08-24] MEDS ORDERED: LYRI100C PO (12:33)
[2017-08-24] MEDS ORDERED: NOVOLOGP2 SQ (12:33)
[2017-08-24] MEDS ORDERED: LISI-519 PO (12:33)
[2017-08-24] MEDS ORDERED: LEVEMIR SQ (12:33)
[2017-08-24] MEDS ORDERED: SYMB160A INH (12:33)
[2017-08-24] MEDS ORDERED: LEVO.1 PO (12:33)
[2017-08-24] MEDS ORDERED: ATOR80TA45 PO (12:33)
--- NOTE | 2017-08-24 12:44 | HHI.DCPOC ---
Discharge Care Plan Diagnosis: (1) DKA (diabetic ketoacidoses) (2) Tobacco abuse (3) Chronic systolic heart failure (4) CAD (coronary artery disease) Goals to Promote Your Health * To prevent worsening of your condition and complications * To maintain your health at the optimal level Directions to Meet Your Goals Take your medications as prescribed Follow your dietary instruction Follow activity as directed Keep your appointments as scheduled Take your immunizations and boosters as scheduled If your symptoms worsen call your PCP, if no PCP go to Urgent Care Center or Emergency Room Smoking is Dangerous to Your Health. Avoid second hand smoke Call the 24-hour hour crisis hotline for domestic abuse at Jl Savage MD Aug 24, 2017 12:44
--- NOTE | 2017-08-24 12:48 | HHI.DS ---
Discharge Summary Admission Date Aug 21, 2017 at 13:03 Discharge Date: Aug 24, 2017 Admitting Diagnosis DKA, acute kidney injury, elevated troponin, noncompliance (1) DKA (diabetic ketoacidoses) ICD Code: E13.10 - Other specified diabetes mellitus with ketoacidosis without coma (2) Non compliance w medication regimen ICD Code: Z91.14 - Noncompliance with medication regimen Status: Acute (3) Hypothyroidism ICD Code: E03.9 - Hypothyroidism Status: Chronic (4) Diabetic neuropathy ICD Code: E11.40 - Diabetic neuropathy Status: Chronic (5) Tobacco abuse ICD Code: Z72.0 - Tobacco use Brief History - From Admission HPI This is a 62 year-old male that presented with generalized weakness. He does complain of generalized malaise, dry mouth, polyuria, polyphagia, nausea , and vomiting. The patient has a history of type 1 diabetes since he was in his 30s, he has been out of his insulin for the last 48 hours. The patient states he was prescribed Levemir 10 units twice a day with sliding scale insulin , NovoLog. However, the patient states he is unable to afford his medications and has not had any insulin the last 2 days. Patient was last hospitalized for right lower lobe pneumonia. His past medical history also includes a history of right above-knee amputation secondary to peripheral vascular disease. He does have a history of tobacco use, last cigarette was this morning. Symptoms are mild to moderate, possibly exacerbated by noncompliance and financial issues. The patient's medical history is significant for coronary artery disease with severe mitral valve regurgitation however he was deemed not a surgical candidate. Laboratory studies were performed revealing leukocytosis and a beta hydroxybutyrate elevation 9.15, but the glucose level 619. Anion gap was noted to be 25, critical care medicine was consulted. History PFSH Past Medical History Hx Anticoagulant Therapy: Yes Arthritis: Yes Asthma: No Autoimmune Disease: No Blood Disorders: No Anxiety: Yes Depression: Yes Heart Rhythm Problems: No Cancer: No Cardiovascular Problems: Yes High Cholesterol: Yes Chemotherapy: No Chest Pain: No Congestive Heart Failure: No COPD: No Cerebrovascular Accident: No Coronary Artery Disease: Yes Diabetes: Yes Patient Takes Glucophage: No Diminished Hearing: Yes ([place]) Endocrine: Yes Gastrointestinal Disorders: Yes (ESOPHAGEAL ULCER? stricture, stretch) GERD: Yes Glaucoma: No Genitourinary: No Headaches: No Hepatitis: No Hiatal Hernia: No Hypertension: Yes Immune Disorder: No Implanted Vascular Access Dvce: Yes Kidney Stones: No Musculoskeletal: Yes (cervical and lumbar spine pt states he has bulging disc R AKA) Neurologic: Yes (NEUROPATHY pvd) Psychiatric: No Reproductive: No Respiratory: Yes Immunizations Current: No Migraines: No Myocardial Infarction: Yes Radiation Therapy: No Renal Failure: No Seizures: Yes Sickle Cell Disease: No Sleep Apnea: No Thyroid Disease: Yes Ulcer: No Tetanus Vaccination: > 5 Years Influenza Vaccination: Yes PNEUMOCCOCAL Vaccine (Year): 2 Past Surgical History Abdominal Surgery: Yes (EXP. LEFT BRACHIAL PLEXIS,APPEND., COLECTOMY) AICD: No Appendectomy: Yes Arteriovenous Shunt: No Body Medical Devices: Right leg amputaion wears prosthesis Cardiac Surgery: Yes (CABGX4) Cholecystectomy: No Coronary Artery Bypass Graft: Yes (2004) Ear Surgery: No Endocrine Surgery: No Eye Surgery: No Genitourinary Surgery: No Gynecologic Surgery: No Insulin Pump: No Joint Replacement: No Neurologic Surgery: No Oral Surgery: No Pacemaker: No Thoracic Surgery: Yes (L5, S1, fusions) Tonsillectomy: Yes Other Surgery: Yes (2 HYDROCELE) Social History Alcohol Use: No Tobacco Use: Yes (quit 2 years ago) Substance Use: No Allergies-Medications Allergies-Medications (Allergen,Severity, Reaction): Coded Allergies: No Known Allergies (Unverified , 08/21/17) Reported Meds & Prescriptions Reported Meds & Active Scripts Active Symbicort Inh (Budesonide/Formoterol Fumarate) 160-4.5 Mcg/Act Aero 1 Puff INH Q12HR Prednisone 20 Mg Tab 20 Mg PO DAILY Furosemide 20 Mg Tab 20 Mg PO BID@,18 Isosorbide Mononitrate ER (Isosorbide Mononitrate) 60 Mg Tab 60 Mg PO DAILY@07 Talent (Hydrocodone-Acetaminophen) 10-325 Mg Tab 1 Tab PO Q6HR 7 Days DO NOT USE THIS MEDICINE IF YOU WILL DRIVE A CAR OR USE A MACHINE, ONLY USE IT WHEN RESTING AT HOME. Levemir Inj (Insulin Detemir) 1,000 unit/ 10 ML Vial 8 Units SQ BID 30 Days Do not mix with any other Insulin. Novolog Inj (Insulin Aspart) 1,000 Unit/10 Ml Vial 1-9 Units SQ ACHS sugars less than 70,(0)units; sugars 150-199,(1) unit; sugars 200-249,(3) units; sugars 250-299,(5) units; sugars 300-349,(7) units; sugars greater than 349,(9) units. inform PCP if < 70 or > 400. Lisinopril 5 Mg Tab 5 Mg PO DAILY Epinephrine Inj 1 Mg/Ml (1 Ml) Inj 0.3 Mg IV PUSH ONCE PRN Atorvastatin (Atorvastatin Calcium) 80 Mg Tab 80 Mg PO HS 30 Days Prilosec (Omeprazole Magnesium) 20 Mg Tab 1 Tab PO BID Lyrica (Pregabalin) 100 Mg Cap 100 Mg PO TID Adult Aspirin EC Low Strength (Aspirin) 81 Mg Tabec 81 Mg PO DAILY 30 Days Nortriptyline (Nortriptyline HCl) 75 Mg Cap 75 Mg PO HS Plavix (Clopidogrel Bisulfate) 75 Mg Tab 75 Mg PO DAILY Synthroid (Levothyroxine Sodium) 100 Mcg Tab 100 Mcg PO DAILY@06 Carvedilol 6.25 Mg Tab 6.25 Mg PO BID Reported B12 (Cyanocobalamin) 1,000 Mcg Tab 1,000 Mcg PO DAILY ROS Review of Systems Except as stated in HPI: all other systems reviewed are Neg General / Constitutional: No: Fever HENT: No: Lightheadedness Cardiovascular: No: Chest Pain or Discomfort Respiratory: No: Shortness of Breath Gastrointestinal: Positive: Nausea, Vomiting, No: Diarrhea, Abdominal Pain Genitourinary: No: Dysuria Musculoskeletal: Positive: Weakness, Other (right above-knee amputation) Endocrine: Positive: Polyuria, Polydipsia CBC/BMP: 08/24/17 1110 08/24/17 1110 Significant Findings Laboratory Tests Test 08/21/17 13:40 08/21/17 14:15 08/21/17 17:28 08/21/17 23:56 Lactic Acid Level 3.4 mmol/L (0.4-2.0) Blood Urea Nitrogen 40 MG/DL (7-18) 41 MG/DL (7-18) Creatinine 1.76 MG/DL (0.60-1.30) 1.40 MG/DL (0.60-1.30) Random Glucose 330 MG/DL (74-106) 123 MG/DL (74-106) Anion Gap 16 MEQ/L (5-15) Estimat Glomerular Filtration Rate 40 ML/MIN (>89) 52 ML/MIN (>89) Calcium Level 7.7 MG/DL (8.5-10.1) Chloride Level 110 MEQ/L (98-107) Hemoglobin A1c 8.5 % (4.3-6.0) Test 08/22/17 04:05 08/22/17 12:30 08/24/17 11:10 White Blood Count 19.9 TH/MM3 (4.0-11.0) Red Blood Count 3.39 MIL/MM3 (4.50-5.90) 3.63 MIL/MM3 (4.50-5.90) Hemoglobin 8.4 GM/DL (13.0-17.0) 9.3 GM/DL (13.0-17.0) Hematocrit 26.5 % (39.0-51.0) 28.4 % (39.0-51.0) Mean Corpuscular Volume 78.3 FL (80.0-100.0) 78.3 FL (80.0-100.0) Mean Corpuscular Hemoglobin 24.9 PG (27.0-34.0) 25.7 PG (27.0-34.0) Mean Corpuscular Hemoglobin Concent 31.8 % (32.0-36.0) Red Cell Distribution Width 19.4 % (11.6-17.2) 19.8 % (11.6-17.2) Neutrophils (%) (Auto) 76.4 % (16.0-70.0) 70.5 % (16.0-70.0) Neutrophils # (Auto) 15.2 TH/MM3 (1.8-7.7) Blood Urea Nitrogen 41 MG/DL (7-18) 37 MG/DL (7-18) 19 MG/DL (7-18) Creatinine 1.41 MG/DL (0.60-1.30) Random Glucose 161 MG/DL (74-106) 186 MG/DL (74-106) 157 MG/DL (74-106) Calcium Level 7.6 MG/DL (8.5-10.1) 7.6 MG/DL (8.5-10.1) 7.8 MG/DL (8.5-10.1) Chloride Level 110 MEQ/L (98-107) 111 MEQ/L (98-107) Estimat Glomerular Filtration Rate 51 ML/MIN (>89) 63 ML/MIN (>89) 86 ML/MIN (>89) Total Protein 5.1 GM/DL (6.4-8.2) 5.8 GM/DL (6.4-8.2) Albumin 2.2 GM/DL (3.4-5.0) 2.6 GM/DL (3.4-5.0) Aspartate Amino Transf (AST/SGOT) 62 U/L (15-37) 46 U/L (15-37) Carbon Dioxide Level 20.7 MEQ/L (21.0-32.0) Alkaline Phosphatase 152 U/L (45-117) Sodium Level 135 MEQ/L (136-145) PE at Discharge AAOx3 nad Clear lungs S1S2 (+) RRR, no MRG abdomen soft. non tender Pt Condition on Discharge: Stable Discharge Disposition: Discharge Home Discharge Instructions DIET: Follow Instructions for: As Tolerated, No Restrictions Activities you can perform: Regular-No Restrictions Activities to Avoid: Strenuous Activity Jl Savage MD Aug 24, 2017 12:48
== END 2017-08-24 15:39 | disposition home or self-care (01) | DRG 637 ==
LOC: NEPC 10:31 → NEDA 13:03 → HIME 14:15 → N04A 08-22 23:28
PROVIDERS: ADMIT Hospitalist; ATTEND Hospitalist
DX: E10.10 Type 1 diabetes mellitus with ketoacidosis without coma (principal); E43 Unspecified severe protein-calorie malnutrition; N17.9 Acute kidney failure, unspecified; R64 Cachexia; I42.9 Cardiomyopathy, unspecified; I50.22 Chronic systolic (congestive) heart failure; I11.0 Hypertensive heart disease with heart failure; E86.0 Dehydration; E10.40 Type 1 diabetes mellitus with diabetic neuropathy, unspecified; E10.649 Type 1 diabetes mellitus with hypoglycemia without coma; D72.829 Elevated white blood cell count, unspecified; J44.9 Chronic obstructive pulmonary disease, unspecified; I25.10 Atherosclerotic heart disease of native coronary artery without angina pectoris; I34.0 Nonrheumatic mitral (valve) insufficiency; E03.9 Hypothyroidism, unspecified; E10.51 Type 1 diabetes mellitus with diabetic peripheral angiopathy without gangrene; E78.00 Pure hypercholesterolemia, unspecified; K21.9 Gastro-esophageal reflux disease without esophagitis; I25.2 Old myocardial infarction; I44.7 Left bundle-branch block, unspecified; M19.90 Unspecified osteoarthritis, unspecified site; H91.90 Unspecified hearing loss, unspecified ear; F17.200 Nicotine dependence, unspecified, uncomplicated; F32.9 Major depressive disorder, single episode, unspecified; F41.9 Anxiety disorder, unspecified; Z79.4 Long term (current) use of insulin; Z68.20 Body mass index [BMI] 20.0-20.9, adult; Z89.611 Acquired absence of right leg above knee; Z91.14 Patient's other noncompliance with medication regimen; Z91.19 Patient's noncompliance with other medical treatment and regimen; Z95.1 Presence of aortocoronary bypass graft
CPT/HCPCS: 71045; 80048; 80053; 81001; 82010; 82805; 82948; 83036; 83605; 83690; 83735; 84100; 84484; 85025; 87040; 87070; 87205; 87641; 93005; 94640; 94664; 96361; 96374; 96375; J0780; J1644; J1815; J1817; J2270; J2405; J3480; J7030; J7042

== ENCOUNTER 2017-10-08 12:36 | Inpatient (IN) | payer MEDICAID, OTHER ==
[~2017-10-08] VITALS: Ht 182.9 cm; Wt 74.8 kg
[2017-10-08] VITALS (7 sets, daily range): BP systolic 87–132; BP diastolic 60–80; PULSE 84–93; RESP 16; TEMP 98–98.7; O2SAT 97–100
[~2017-10-08 12:36] MED LIST changes: -HYDR-3366 PO; -PRED20 PO; -PRIL20TA2 PO
--- NOTE | 2017-10-08 14:47 | RADRPT ---
EXAM DATE/TIME: 10/08/2017 13:55 [facility] COMPARISON: US LEG LEFT VENOUS DOPPLER, June 06, 2017, 15:27. INDICATIONS : Left leg swelling. MEDICAL HISTORY : Myocardial infarction. Hypercholesterolemia. Arthritis. Thyroid disease. Peripheral vascular disea se. Neuropathy. Seizures. Coronary artery disease. Hyperlipidemia. HTN. GERD. Diabetes. Depression. Anxiety. Anticoagulant therapy, Plavix. SURGICAL HISTORY : Tonsillectomy. Angioplasty. Appendectomy. CABG x4. L5-S1 fusions. Exploratory left brachial plexis. Colectomy. Right AKA. Left shoulder bladder surgery. Blood transfusions. Hydrocele surgeries x 2. ENCOUNTER: Subsequent ACUITY: 1 day PAIN SCORE: 7/10 LOCATION: Left leg. TECHNIQUE: Venous ultrasound of the leg was performed from the inguinal ligament to the proximal calf. Real-sahra e, color Doppler and spectral tracing, compression and augmentation techniques were used. FINDINGS: There is normal compressibility of the deep venous system from the inguinal region to the proximal ca lf. No echogenic clot is seen in the lumen of the common femoral, femoral, popliteal, and posterior tibial veins. There is a normal response of the venous system to proximal and distal augmentation an d respiration. There is a well-defined benign cystic structure in the anterior left upper thigh measuring up to 1.7 x 2.1 x 1.7 cm. This is anechoic with through transmission and well defined robertson. CONCLUSION: 1. No evidence of deep venous thrombosis. 2. Benign cystic structure in the anterior left upper thigh measuring up to 2 cm. Chris Vital MD on October 08, 2017 at 14:43 Board Certified Radiologist. This report was verified electronically.
[2017-10-08] MEDS ORDERED: SODIUM CHLOR 0.9% 1000 ML INJ 1,000 ML IV ONE (18:15)
--- NOTE | 2017-10-08 18:59 | RADRPT ---
EXAM DATE/TIME: 10/08/2017 18:13 [facility] COMPARISON: CHEST SINGLE AP, August 21, 2017, 15:05. INDICATIONS : Cough. MEDICAL HISTORY : Diabetes mellitus type II. SURGICAL HISTORY : CABG. Right leg above knee amputation. ENCOUNTER: Initial ACUITY: 1 day PAIN SCORE: 0/10 LOCATION: Bilateral chest FINDINGS: A single view of the chest demonstrates a mild basilar airspace disease and small effusions. Previous CABG. No pneumothorax. CONCLUSION: 1. Basilar airspace disease and small effusions. Previous CABG. Channing Camara MD on October 08, 2017 at 18:55 Board Certified Radiologist. This report was verified electronically.
[2017-10-08 19:28] LABS: AUTOMATED NEUTROPHIL # 7.1 TH/MM3 (1.8-7.7); BASOPHIL # 0.1 TH/MM3 (0-0.2); BASOPHIL % 1.2 % (0.0-2.0); EOSINOPHIL # 0.3 TH/MM3 (0-0.4); EOSINOPHIL % 2.7 % (0.0-4.0); HEMATOCRIT 37.9 % (39.0-51.0); HEMOGLOBIN 11.8 GM/DL (13.0-17.0); LYMPH % 29.9 % (9.0-44.0); LYMPHOCYTE # 3.4 TH/MM3 (1.0-4.8); MEAN CELL VOLUME 71.1 FL (80.0-100.0); MEAN CORPUSCULAR HEMOGLOBIN 22.2 PG (27.0-34.0); MEAN CORPUSCULAR HGB CONC 31.2 % (32.0-36.0); MEAN PLATELET VOLUME 10.3 FL (7.0-11.0); MONO % 3.8 % (0.0-8.0); MONOCYTE # 0.4 TH/MM3 (0-0.9); NEUT % 62.4 % (16.0-70.0); PLATELET COUNT 233 TH/MM3 (150-450); RED BLOOD COUNT 5.34 MIL/MM3 (4.50-5.90); RED CELL DISTRIBUTION WIDTH 19.1 % (11.6-17.2); WHITE BLOOD COUNT 11.4 TH/MM3 (4.0-11.0)
[2017-10-08 19:36] LABS: PROTHROMBIN TIME - PATIENT 10.1 SEC (9.8-11.6)
[2017-10-08 19:41] LABS: LACTIC ACID SEPSIS PROTOCOL 2.2 mmol/L (0.4-2.0)
--- NOTE | 2017-10-08 19:41 | PD ---
HPI Chief Complaint: Edema Time Seen by Provider: 18:02 Travel History International Travel<30 days: No Contact w/Intl Traveler<30days: No Traveled to known affect area: No History of Present Illness HPI Patient is a 62-year-old male who comes in complaining of leg pain and swelling. He says this is been going on for 3 weeks, but has been getting worse and his pain from his thigh down to his foot. He says he has small wounds , one that he sustained from knocking his prosthesis into his leg. He denies fever or chills. He says he has had swelling to his leg before and has had ultrasounds done that have not revealed any DVT. She is a diabetic, says he has been taking his medication but has noted sugars to be up and down. He has been here multiple times for DKA in the past. He denies cough or cold symptoms , chest pain or shortness of breath. Severity is mild to moderate. PFSH Past Medical History Hx Anticoagulant Therapy: Yes (PLAVIX) Arthritis: Yes Asthma: No Autoimmune Disease: No Blood Disorders: No Anxiety: Yes Depression: Yes Heart Rhythm Problems: No Cancer: No Cardiovascular Problems: Yes High Cholesterol: Yes Chemotherapy: No Chest Pain: No Congestive Heart Failure: No COPD: No Cerebrovascular Accident: No Coronary Artery Disease: Yes Diabetes: Yes Patient Takes Glucophage: Yes Diminished Hearing: Yes ([place]) Endocrine: Yes Gastrointestinal Disorders: Yes (ESOPHAGEAL ULCER? stricture, stretch) GERD: Yes Glaucoma: No Genitourinary: No Headaches: No Hepatitis: No Hiatal Hernia: No Hypertension: Yes Immune Disorder: No Implanted Vascular Access Dvce: Yes Kidney Stones: No Musculoskeletal: Yes (cervical and lumbar spine pt states he has bulging disc R AKA) Neurologic: Yes (NEUROPATHY pvd) Psychiatric: No Reproductive: No Respiratory: Yes Immunizations Current: No Migraines: No Myocardial Infarction: Yes Radiation Therapy: No Renal Failure: No Seizures: Yes Sickle Cell Disease: No Sleep Apnea: No Thyroid Disease: Yes Ulcer: No Tetanus Vaccination: > 5 Years Influenza Vaccination: Yes PNEUMOCCOCAL Vaccine (Year): 2 Past Surgical History Abdominal Surgery: Yes (EXP. LEFT BRACHIAL PLEXIS,APPEND., COLECTOMY) AICD: No Appendectomy: Yes Arteriovenous Shunt: No Body Medical Devices: Right leg amputaion wears prosthesis Cardiac Surgery: Yes (CABGX4) Cholecystectomy: No Coronary Artery Bypass Graft: Yes (2004) Ear Surgery: No Endocrine Surgery: No Eye Surgery: No Genitourinary Surgery: No Gynecologic Surgery: No Insulin Pump: No Joint Replacement: No Neurologic Surgery: No Oral Surgery: No Pacemaker: No Thoracic Surgery: Yes (L5, S1, fusions) Tonsillectomy: Yes Other Surgery: Yes (2 HYDROCELE) Social History Alcohol Use: No Tobacco Use: Yes (quit 2 years ago) Substance Use: No Allergies-Medications (Allergen,Severity, Reaction): Coded Allergies: No Known Allergies (Unverified , 08/21/17) Reported Meds & Prescriptions Reported Meds & Active Scripts Active Symbicort Inh (Budesonide/Formoterol Fumarate) 160-4.5 Mcg/Act Aero 1 Puff INH Q12HR Furosemide 20 Mg Tab 20 Mg PO BID@09,18 Isosorbide Mononitrate ER (Isosorbide Mononitrate) 60 Mg Tab 60 Mg PO DAILY@07 Levemir Inj (Insulin Detemir) 1,000 unit/ 10 ML Vial 8 Units SQ BID 30 Days Do not mix with any other Insulin. Novolog Inj (Insulin Aspart) 1,000 Unit/10 Ml Vial 1-9 Units SQ ACHS sugars less than 70,(0)units; sugars 150-199,(1) unit; sugars 200-249,(3) units; sugars 250-299,(5) units; sugars 300-349,(7) units; sugars greater than 349,(9) units. inform PCP if < 70 or > 400. Lisinopril 5 Mg Tab 5 Mg PO DAILY Atorvastatin (Atorvastatin Calcium) 80 Mg Tab 80 Mg PO HS 30 Days Lyrica (Pregabalin) 100 Mg Cap 100 Mg PO TID Adult Aspirin EC Low Strength (Aspirin) 81 Mg Tabec 81 Mg PO DAILY 30 Days Nortriptyline (Nortriptyline HCl) 75 Mg Cap 75 Mg PO HS Plavix (Clopidogrel Bisulfate) 75 Mg Tab 75 Mg PO DAILY Synthroid (Levothyroxine Sodium) 100 Mcg Tab 100 Mcg PO DAILY@06 Carvedilol 6.25 Mg Tab 6.25 Mg PO BID B12 (Cyanocobalamin) 1,000 Mcg Tab 1,000 Mcg PO DAILY Epinephrine Inj 1 Mg/Ml (1 Ml) Inj 0.3 Mg IV PUSH ONCE PRN Review of Systems Except as stated in HPI: all other systems reviewed are Neg General / Constitutional: No: Fever, Chills HENT: No: Headaches, Lightheadedness Cardiovascular: No: Chest Pain or Discomfort Respiratory: No: Shortness of Breath Gastrointestinal: No: Nausea, Vomiting Musculoskeletal: Positive: Edema, Pain Skin: Positive Lesions Neurologic: No: Weakness, Dizziness Physical Exam Narrative GENERAL: Awake and alert, in no acute distress. SKIN: Focused skin assessment warm/dry. Small scabbed wounds to the left dietz. There is no erythema or warmth. No oozing of fluids. HEAD: Atraumatic. Normocephalic. EYES: Pupils equal and round. No scleral icterus. No injection or drainage. ENT: No nasal bleeding or discharge. Mucous membranes pink and moist. NECK: Trachea midline. No JVD. CARDIOVASCULAR: Regular rate and rhythm. No murmur appreciated. RESPIRATORY: No accessory muscle use. Clear to auscultation. Breath sounds equal bilaterally. GASTROINTESTINAL: Abdomen soft, non-tender, nondistended. MUSCULOSKELETAL: No obvious deformities. No clubbing. No cyanosis. Mild edema of the left lower extremity. Pedal pulses intact. NEUROLOGICAL: Awake and alert. No obvious cranial nerve deficits. Motor grossly within normal limits. Normal speech. PSYCHIATRIC: Appropriate mood and affect; insight and judgment normal. Data Data Last Documented VS Vital Signs Date Time Temp Pulse Resp B/P (MAP) Pulse Ox O2 Delivery O2 Flow Rate FiO2 10/08/17 18:42 90 18 100 Room Air 10/08/17 18:41 132/80 (97) 10/08/17 13:24 98.0 Orders Orders Electrocardiogram (10/08/17 13:26) Complete Blood Count With Diff (10/08/17 13:26) Prothrombin Time / Inr (Pt) (10/08/17 13:26) Act Partial Throm Time (Ptt) (10/08/17 13:26) Lactic Acid Sepsis Protocol (10/08/17 13:26) Blood Culture (10/08/17 13:26) Us Leg Venous Doppler (10/08/17 ) Basic Metabolic Panel (Bmp) (10/08/17 18:07) Hepatic Functional Panel (10/08/17 18:07) Beta Hydroxybutyrate (Acetone) (10/08/17 18:07) Sodium Chlor 0.9% 1000 Ml Inj (Ns 1000 M (10/08/17 18:15) Chest, Single Ap (10/08/17 ) Blood Gas Venous (Vbg) (10/08/17 19:03) Labs Laboratory Tests Test 10/08/17 18:40 White Blood Count 11.4 TH/MM3 Red Blood Count 5.34 MIL/MM3 Hemoglobin 11.8 GM/DL Hematocrit 37.9 % Mean Corpuscular Volume 71.1 FL Mean Corpuscular Hemoglobin 22.2 PG Mean Corpuscular Hemoglobin Concent 31.2 % Red Cell Distribution Width 19.1 % Platelet Count 233 TH/MM3 Mean Platelet Volume 10.3 FL Neutrophils (%) (Auto) 62.4 % Lymphocytes (%) (Auto) 29.9 % Monocytes (%) (Auto) 3.8 % Eosinophils (%) (Auto) 2.7 % Basophils (%) (Auto) 1.2 % Neutrophils # (Auto) 7.1 TH/MM3 Lymphocytes # (Auto) 3.4 TH/MM3 Monocytes # (Auto) 0.4 TH/MM3 Eosinophils # (Auto) 0.3 TH/MM3 Basophils # (Auto) 0.1 TH/MM3 CBC Comment DIFF FINAL Differential Comment Prothrombin Time 10.1 SEC Prothromb Time International Ratio 1.0 RATIO Activated Partial Thromboplast Time 26.6 SEC Lactic Acid Level 2.2 mmol/L MDM Medical Decision Making Medical Screen Exam Complete: Yes Emergency Medical Condition: Yes Medical Record Reviewed: Yes Differential Diagnosis Cellulitis versus DVT versus hyperglycemia versus dehydration Narrative Course Patient is a 62-year-old male who comes in complaining of pain and swelling to his left leg. Exam shows some edema with small wounds, no evidence of severe infection. Ultrasound obtained shows no evidence of DVT. Chest x-ray performed shows basal or airspace disease. Patient given a dose of antibiotics. Given IV fluids. Signed out to Dr. Anderson to follow up testing and disposition the patient. Gill Cerrato MD Oct 08, 2017 19:41
[2017-10-08 19:48] LABS: CALCIUM 8.8 MG/DL (8.5-10.1); CREATININE 1.58 MG/DL (0.60-1.30)
[2017-10-08 19:50] LABS: DIRECT BILIRUBIN ADULT 0.2 MG/DL (0.0-0.2)
[2017-10-08 19:53] LABS: INDIRECT BILIRUBIN 0.3 MG/DL (0.0-0.8); TOTAL BILIRUBIN ADULT 0.5 MG/DL (0.2-1.0); TOTAL PROTEIN 8.5 GM/DL (6.4-8.2)
[2017-10-08] MEDS ORDERED: CEFEPIME INJ 1,000 MG in SODIUM CHLORIDE 0.9% INJ 100 ML IV ONE (20:00)
[2017-10-08] MEDS: AZITHROMYCIN INJ 500 MG in SODIUM CHLOR 0.9% 250 ML INJ 250 ML IV ONE ×2 (20:29→21:45)
[2017-10-08] MEDS ORDERED: VANCOMYCIN INJ 1,000 MG in SODIUM CHLOR 0.9% 250 ML INJ 250 ML IV ONE (20:30)
--- NOTE | 2017-10-08 20:35 | PD ---
Physical Exam Narrative General: The patient is a well-developed malnourished male in no acute distress Head and Neck exam: Head is normocephalic atraumatic. Eyes: EOMI, pupils are equal round and reactive to light. Nose: Midline septum with pink mucous membranes Mouth: Dentition unremarkable. Moist mucus membranes. Posterior oropharynx is not erythematous. No tonsillar hypertrophy. Uvula midline. Airway patent. Neck: No palpable lymphadenopathy. No nuchal rigidity. No thyromegaly. Cardiovascular: Regular rate and rhythm with a 2/6 systolic murmur best audible over the mitral area. No gallops or rubs. Lungs: Clear to auscultation bilaterally. No wheezes, rhonchi, or rales. Abdomen: Soft, without tenderness to palpation in all 4 quadrants of the abdomen. No guarding, rebound, or rigidity. N normal bowel sounds are audible. No tenderness on palpation of McBurney's point. Negative Antoine sign. Extremities: No clubbing or cyanosis. 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 The patient's left leg is noted to have erythema below the knee with a few areas of excoriation and open wounds with a clear drainage. 2+ pulses in all 4 extremities. Back: No costovertebral angle tenderness to palpation. Neurologic Exam: Grossly nonfocal. Skin Exam: No other rash noted. Intact skin that is warm and dry. Data Data Last Documented VS Vital Signs Date Time Temp Pulse Resp B/P (MAP) Pulse Ox O2 Delivery O2 Flow Rate FiO2 10/08/17 20:32 92 16 124/78 (93) 97 Room Air 10/08/17 13:24 98.0 Orders Orders Electrocardiogram (10/08/17 13:26) Complete Blood Count With Diff (10/08/17 13:26) Prothrombin Time / Inr (Pt) (10/08/17 13:26) Act Partial Throm Time (Ptt) (10/08/17 13:26) Lactic Acid Sepsis Protocol (10/08/17 13:26) Blood Culture (10/08/17 13:26) Us Leg Venous Doppler (10/08/17 ) Basic Metabolic Panel (Bmp) (10/08/17 18:07) Hepatic Functional Panel (10/08/17 18:07) Beta Hydroxybutyrate (Acetone) (10/08/17 18:07) Sodium Chlor 0.9% 1000 Ml Inj (Ns 1000 M (10/08/17 18:15) Chest, Single Ap (10/08/17 ) Blood Gas Venous (Vbg) (10/08/17 19:03) Cefepime Inj (Maxipime Inj) (10/08/17 20:00) Azithromycin Inj (Zithromax Inj) (10/08/17 20:00) Creatine Kinase (Cpk) (10/08/17 20:16) Ckmb (Isoenzyme) Profile (10/08/17 20:16) Troponin I (10/08/17 20:16) B-Type Natriuretic Peptide (10/08/17 20:16) Vancomycin Inj (Vancomycin Inj) (10/08/17 20:30) Admit Order (Ed Use Only) (10/08/17 20:38) Labs Laboratory Tests Test 10/08/17 18:40 10/08/17 20:30 10/08/17 20:38 White Blood Count 11.4 TH/MM3 Red Blood Count 5.34 MIL/MM3 Hemoglobin 11.8 GM/DL Hematocrit 37.9 % Mean Corpuscular Volume 71.1 FL Mean Corpuscular Hemoglobin 22.2 PG Mean Corpuscular Hemoglobin Concent 31.2 % Red Cell Distribution Width 19.1 % Platelet Count 233 TH/MM3 Mean Platelet Volume 10.3 FL Neutrophils (%) (Auto) 62.4 % Lymphocytes (%) (Auto) 29.9 % Monocytes (%) (Auto) 3.8 % Eosinophils (%) (Auto) 2.7 % Basophils (%) (Auto) 1.2 % Neutrophils # (Auto) 7.1 TH/MM3 Lymphocytes # (Auto) 3.4 TH/MM3 Monocytes # (Auto) 0.4 TH/MM3 Eosinophils # (Auto) 0.3 TH/MM3 Basophils # (Auto) 0.1 TH/MM3 CBC Comment DIFF FINAL Differential Comment Prothrombin Time 10.1 SEC Prothromb Time International Ratio 1.0 RATIO Activated Partial Thromboplast Time 26.6 SEC Blood Urea Nitrogen 28 MG/DL Creatinine 1.58 MG/DL Random Glucose 273 MG/DL Total Protein 8.5 GM/DL Albumin 4.0 GM/DL Calcium Level 8.8 MG/DL Alkaline Phosphatase 297 U/L Aspartate Amino Transf (AST/SGOT) 55 U/L Alanine Aminotransferase (ALT/SGPT) 61 U/L Total Bilirubin 0.5 MG/DL Direct Bilirubin 0.2 MG/DL Sodium Level 132 MEQ/L Potassium Level 4.1 MEQ/L Chloride Level 96 MEQ/L Carbon Dioxide Level 24.0 MEQ/L Anion Gap 12 MEQ/L Estimat Glomerular Filtration Rate 45 ML/MIN Lactic Acid Level 2.2 mmol/L 1.8 mmol/L Indirect Bilirubin 0.3 MG/DL Total Creatine Kinase 77 U/L Troponin I LESS THAN 0.02 NG/ML B-Type Natriuretic Peptide 1558 PG/ML B-Hydroxybutyrate 0.30 MMOL/L Blood Gas Puncture Site IV Blood Gas Patient Temperature 98.6 Venous Blood pH 7.37 Venous Blood Partial Pressure CO2 41 mmHg Venous Blood Partial Pressure O2 28 mmHg Venous Blood HCO3 23 mmol/L Venous Blood Oxygen Saturation 41 % Venous Blood Oxygen Content 5.7 Vol % Venous Blood Base Excess -1.1 mmol/L Oxygen Delivery Device NASAL CANNULA Blood Gas Ventilator Setting 2 MDM Medical Record Reviewed: Yes Supervised Visit with ALISSON: No Interpretation(s) Last Impressions Lower Extremity Ultrasound 10/08/17 0000 Signed Impressions: Service Date/Time: Sunday, October 08, 2017 13:55 - CONCLUSION: 1. No evidence of deep venous thrombosis. 2. Benign cystic structure in the anterior left upper thigh measuring up to 2 cm. Chris Vital MD Chest X-Ray 10/08/17 0000 Signed Impressions: Service Date/Time: Sunday, October 08, 2017 18:13 - CONCLUSION: 1. Basilar airspace disease and small effusions. Previous CABG. Channing Camara MD Narrative Course During the course of the patient's emergency department visit, the patient's history, examination, and differential diagnosis were reviewed with the patient. The patient was placed on a alarm security or surveillance monitor with oximetry and frequent blood pressure monitoring. The patient had IV access obtained and blood work sent for analysis. The patient's case was checked out to me by Dr. Ennis. Please see her complete history and physical. The patient's case was checked out to me at the conclusion of her shift. The patient reports to me that he has had left leg swelling that first began 6-8 weeks ago. He reports that he developed redness below the knee at that time. He reports that he was previously on antibiotic for this, however it has not seemed to help. The patient reports that he last checked his blood sugar this morning was 436. He reports that he administered Levemir 15 units and NovoLog 20 units. The patient reports that he went to his pain management doctor earlier today and was told to go the emergency department as he may have congestive heart failure. He has had congestive heart failure in the past. He reports that he is on furosemide. He also takes Plavix and aspirin on a daily basis. He reports having a history of mitral valve regurgitation and may be having surgery related to this soon. The patient reports that he has also undergone coronary artery bypass grafting and had his first SD at 51 years of age. The patient was initially provided broad-spectrum antibiotic coverage after blood cultures 2 were ordered and a lactic acid was sent for analysis. VBG was ordered to evaluate for possible underlying DKA. The patient's laboratory studies were reviewed and remarkable for a white count of 11.4, hemoglobin 11.8, platelets 233 with a normal differential. CMP is remarkable for sodium of 132, chloride 96, BUN 28, creatinine 1.58, glucose 273 , AST 55, alk phos 297, lactic acid is 2.2. PT 10.1, PTT 26.6. Beta hydroxybutyrate is 0.30 Radiology studies were reviewed and remarkable for a chest x-ray shows basilar airspace disease and small effusions, previous CABG, otherwise unremarkable. Ultrasound shows no evidence of DVT, benign cystic structure in the anterior left upper thigh measuring up to 2 cm. The patient's results were discussed with the patient, including the plan of care. I explained that further testing and/ or monitoring is indicated based on the patient's history, examination, and/ or laboratory findings. Therefore, I recommended admission for additional evaluation. The patient expressed understanding and was agreeable with this plan. The patient was admitted to the hospital in stable condition and sent to a bed under the care of the [facility]. Physician Communication Physician Communication The patient's case including history, pertinent physical examination findings, and laboratory studies were discussed with Dr. Mcfarlane. It was agreed that the patient would be admitted to the [facility] service. Diagnosis Primary Impression: Acute exacerbation of congestive heart failure Qualified Codes: I50.9 - Heart failure, unspecified Additional Impression: Cellulitis of right lower extremity Admitting Information Admitting Physician Requests: Admit Kamini Anderson MD Oct 08, 2017 20:35
[2017-10-08] MEDS ORDERED: ACETAMINOPHEN 325 MG TAB PO PRN (21:30)
[2017-10-08] MEDS ORDERED: NALOXONE HCL 0.4 MG/ML AMP IV PUSH PRN (21:30)
[2017-10-08] MEDS ORDERED: SODIUM CHLORIDE 0.9% FLUSH 10 ML FLUSH IV FLUSH PRN (21:30)
[2017-10-08 21:33] LABS: TROPONIN I LESS THAN 0.02 NG/ML (0.02-0.05)
[2017-10-08] MEDS ORDERED: GLUCAGON 1 MG/ML VIAL OTHER PRN (21:45)
[2017-10-08] MEDS ORDERED: HYDR-3583 PO (21:51)
[2017-10-08] MEDS ORDERED: RESP: ALBUTEROL 2.5 MG/IPRATROPIUM 0.5 MG NEB (SCH) NEB ONE (23:00)
[2017-10-08] MEDS ORDERED: FUROSEMIDE 40 MG/4 ML VIAL IV PUSH ONE (23:00)
[2017-10-08] MEDS: HEPARIN SODIUM - SQ 10,000 UNITS/ML VIAL SQ SCH (23:22)
[2017-10-09] VITALS (12 sets, daily range): BP systolic 111–129; BP diastolic 58–77; PULSE 79–98; RESP 16–18; TEMP 97.1–98.3; O2SAT 96–100
[2017-10-09] MEDS: ACETAMINOPHEN/HYDROcodone 325 MG/10 MG TAB PO PRN ×4 (01:00→22:23)
--- NOTE | 2017-10-09 02:06 | HHI.HP ---
[facility] Unknown Admission Diagnosis left lower extremity cellulitis, edema Diagnoses: Travel History International Travel<30 Days: No Contact w/Intl Traveler <30 Da: No Traveled to Known Affected Are: No History of Present Illness 62-year-old male with multiple medical comorbidities presents to the emergency department complaining of left lower extremity edema and increasing fatigue times the past 6 weeks. The patient complains of associated shortness of breath and dyspnea on exertion. He complains of pain and redness in his left lower extremity. He denies any fever/chills. Endorses weakness and shortness of breath but denies chest pain. No nausea/vomiting/diarrhea. No abdominal pain. No lateralizing signs/symptoms. No fever/chills. Review of Systems Except as stated in HPI: all other systems reviewed are Neg Past Family Social History Past Medical History Mitral valve regurgitation CAD Degenerative disc disease docs and diabetes mellitus Hypothyroidism Hypertension Hyperlipidemia Peripheral arterial disease CHF (last echo on 06/27/17 showed mitral valve regurgitation with an EF of 35-40 %) Diabetes mellitus Past Surgical History AKA CABG 4 in 2004 Scapula radiating Appendectomy Tonsillectomy Reported Medications Reported Meds & Active Scripts Active Symbicort Inh (Budesonide/Formoterol Fumarate) 160-4.5 Mcg/Act Aero 1 Puff INH Q12HR Furosemide 20 Mg Tab 20 Mg PO BID@,18 Isosorbide Mononitrate ER (Isosorbide Mononitrate) 60 Mg Tab 60 Mg PO DAILY@07 Levemir Inj (Insulin Detemir) 1,000 unit/ 10 ML Vial 8 Units SQ BID 30 Days Do not mix with any other Insulin. Novolog Inj (Insulin Aspart) 1,000 Unit/10 Ml Vial 1-9 Units SQ ACHS sugars less than 70,(0)units; sugars 150-199,(1) unit; sugars 200-249,(3) units; sugars 250-299,(5) units; sugars 300-349,(7) units; sugars greater than 349,(9) units. inform PCP if < 70 or > 400. Lisinopril 5 Mg Tab 5 Mg PO DAILY Atorvastatin (Atorvastatin Calcium) 80 Mg Tab 80 Mg PO HS 30 Days Lyrica (Pregabalin) 100 Mg Cap 100 Mg PO TID Adult Aspirin EC Low Strength (Aspirin) 81 Mg Tabec 81 Mg PO DAILY 30 Days Nortriptyline (Nortriptyline HCl) 75 Mg Cap 75 Mg PO HS Plavix (Clopidogrel Bisulfate) 75 Mg Tab 75 Mg PO DAILY Synthroid (Levothyroxine Sodium) 100 Mcg Tab 100 Mcg PO DAILY@06 Carvedilol 6.25 Mg Tab 6.25 Mg PO BID B12 (Cyanocobalamin) 1,000 Mcg Tab 1,000 Mcg PO DAILY Epinephrine Inj 1 Mg/Ml (1 Ml) Inj 0.3 Mg IV PUSH ONCE PRN Reported Hydrocodone-Acetamin 10-325 mg (Hydrocodone/Acetaminophen) 10 Mg-325 Mg Tablet 1 Tab PO QID Allergies: Coded Allergies: No Known Allergies (Unverified , 10/08/17) Family History Father with both DM and CAD. Mom with CAD. Social History Quit tobacco 1 year ago. Denies alcohol and illicit drugs Physical Exam Vital Signs Vital Signs Date Time Temp Pulse Resp B/P (MAP) Pulse Ox O2 Delivery O2 Flow Rate FiO2 10/08/17 23:46 98.7 93 16 103/69 (80) 100 10/08/17 23:35 10/08/17 22:30 90 18 126/76 (93) 100 10/08/17 21:30 90 16 116/68 (84) 100 Room Air 10/08/17 20:32 92 16 124/78 (93) 97 Room Air 10/08/17 18:42 90 18 100 Room Air 10/08/17 18:41 91 16 132/80 (97) 100 Room Air 10/08/17 13:24 98.0 84 16 87/60 (69) 99 Physical Exam GENERAL: male sitting up in bed SKIN: No rashes, ecchymoses or lesions. Cool and dry. HEAD: Atraumatic. Normocephalic. No temporal or scalp tenderness. EYES: Pupils equal round and reactive. Extraocular motions intact. No scleral icterus. No injection or drainage. ENT: Nose without bleeding, purulent drainage or septal hematoma. Throat without erythema, tonsillar hypertrophy or exudate. Uvula midline. Airway patent. NECK: Trachea midline. No JVD or lymphadenopathy. Supple, nontender, no meningeal signs. CARDIOVASCULAR: Regular rate and rhythm without murmurs, gallops, or rubs. RESPIRATORY: Clear to auscultation. Breath sounds equal bilaterally. No wheezes , rales, or rhonchi. GASTROINTESTINAL: Abdomen soft, non-tender, nondistended. No hepato-splenomegaly , or palpable masses. No guarding. MUSCULOSKELETAL: Right AKA. Left lower extremity with 2+ pitting edema and erythema with multiple wounds draining serosanguineous material on the anterior aspect. NEUROLOGICAL: Awake and alert. Cranial nerves II through XII intact. Motor and sensory grossly within normal limits. Normal speech. Laboratory Laboratory Tests Test 10/08/17 18:40 10/08/17 20:30 10/08/17 20:38 White Blood Count 11.4 Red Blood Count 5.34 Hemoglobin 11.8 Hematocrit 37.9 Mean Corpuscular Volume 71.1 Mean Corpuscular Hemoglobin 22.2 Mean Corpuscular Hemoglobin Concent 31.2 Red Cell Distribution Width 19.1 Platelet Count 233 Mean Platelet Volume 10.3 Neutrophils (%) (Auto) 62.4 Lymphocytes (%) (Auto) 29.9 Monocytes (%) (Auto) 3.8 Eosinophils (%) (Auto) 2.7 Basophils (%) (Auto) 1.2 Neutrophils # (Auto) 7.1 Lymphocytes # (Auto) 3.4 Monocytes # (Auto) 0.4 Eosinophils # (Auto) 0.3 Basophils # (Auto) 0.1 CBC Comment DIFF FINAL Differential Comment Prothrombin Time 10.1 Prothromb Time International Ratio 1.0 Activated Partial Thromboplast Time 26.6 Blood Urea Nitrogen 28 Creatinine 1.58 Random Glucose 273 Total Protein 8.5 Albumin 4.0 Calcium Level 8.8 Alkaline Phosphatase 297 Aspartate Amino Transf (AST/SGOT) 55 Alanine Aminotransferase (ALT/SGPT) 61 Total Bilirubin 0.5 Direct Bilirubin 0.2 Sodium Level 132 Potassium Level 4.1 Chloride Level 96 Carbon Dioxide Level 24.0 Anion Gap 12 Estimat Glomerular Filtration Rate 45 Lactic Acid Level 2.2 1.8 Indirect Bilirubin 0.3 Total Creatine Kinase 77 Troponin I LESS THAN 0.02 B-Type Natriuretic Peptide 1558 B-Hydroxybutyrate 0.30 Blood Gas Puncture Site IV Blood Gas Patient Temperature 98.6 Venous Blood pH 7.37 Venous Blood Partial Pressure CO2 41 Venous Blood Partial Pressure O2 28 Venous Blood HCO3 23 Venous Blood Oxygen Saturation 41 Venous Blood Oxygen Content 5.7 Venous Blood Base Excess -1.1 Oxygen Delivery Device NASAL CANNULA Blood Gas Ventilator Setting 2 Date/Time Source Procedure Growth Status 10/08/17 18:40 Blood Peripheral Aerobic Blood Culture Pending Received 10/08/17 18:40 Blood Peripheral Anaerobic Blood Culture Pending Received Result Diagram: 10/08/170 10/08/171839 Caprini VTE Risk Assessment Caprini VTE Risk Assessment: Mod/High Risk (score >= 2) Caprini Risk Assessment Model Point Value = 1 Point Value = 2 Point Value = 3 Point Value = 5 Age 41-60 Minor surgery BMI > 25 kg/m2 Swollen legs Varicose veins or History of unexplained or recurrent spontaneous Oral contraceptives or hormone replacement Sepsis (< 1 month) Serious lung disease, including pneumonia (< 1 month) Abnormal pulmonary function Acute myocardial infarction Congestive heart failure (< 1 month) History of inflammatory bowel disease Medical patient at bed rest Age 61-74 Arthroscopic surgery Major open surgery (> 45 min) Laparoscopic surgery (> 45 min) Malignancy Confined to bed (> 72 hours) Immobilizing plaster cast Central venous access Age >= 75 History of VTE Family history of VTE Factor V Leiden Prothrombin [id number] Lupus anticoagulant Anticardiolipin antibodies Elevated serum homocysteine Heparin-induced thrombocytopenia Other congenital or acquired thrombophilia Stroke (< 1 month) Elective arthroplasty Hip, pelvis, or leg fracture Acute spinal cord injury (< 1 month) Prophylaxis Regimen Total Risk Factor Score Risk Level Prophylaxis Regimen 0-1 Low Early ambulation 2 Moderate Order ONE of the following: *Sequential Compression Device (SCD) *Heparin 5000 units SQ BID 3-4 Higher Order ONE of the following medications: *Heparin 5000 units SQ TID *Enoxaparin/Lovenox 40 mg SQ daily (WT < 150 kg, CrCl > 30 mL/min) *Enoxaparin/Lovenox 30 mg SQ daily (WT < 150 kg, CrCl > 10-29 mL/min) *Enoxaparin/Lovenox 30 mg SQ BID (WT < 150 kg, CrCl > 30 mL/min) AND/OR *Sequential Compression Device (SCD) 5 or more Highest Order ONE of the following medications: *Heparin 5000 units SQ TID (Preferred with Epidurals) *Enoxaparin/Lovenox 40 mg SQ daily (WT < 150 kg, CrCl > 30 mL/min) *Enoxaparin/Lovenox 30 mg SQ daily (WT < 150 kg, CrCl > 10-29 mL/min) *Enoxaparin/Lovenox 30 mg SQ BID (WT < 150 kg, CrCl > 30 mL/min) AND *Sequential Compression Device (SCD) Assessment and Plan Assessment and Plan Assessment/plan: 1. Left lower extremity cellulitis Vancomycin/Zosyn Patient with leukocytosis and elevated lactic acid Monitor for signs of sepsis Repeat lactic acid pending 2. CHF exacerbation/mitral valve regurgitation Chest x-ray significant for small effusions, personally reviewed Last echo 06/27/17 Repeat echo pending IV Lasix 3. RENE Creatinine 1.58, baseline 0.9-1.2 Monitor renal function Avoiding IV fluid hydration secondary to CHF exacerbation 3. Diabetes mellitus Continue home Levemir Sliding scale insulin Monitor blood glucose 4. CAD/hypertension/hyperlipidemia/hypothyroidism Continue home medications FEN Heart healthy diabetic diet Electrolytes: Monitor and replete when necessary Heparin Physician Certification 2 Midnight Certification Type: Admission for Inpatient Services Order for Inpatient Services The services are ordered in accordance with Medicare regulations or non- Medicare payer requirements, as applicable. In the case of services not specified as inpatient-only, they are appropriately provided as inpatient services in accordance with the 2-midnight benchmark. Estimated LOS (days): 2 2 days is the estimated time the patient will need to remain in the hospital, assuming treatment plan goals are met and no additional complications. Post-Hospital Plan: Not yet determined Nicolette Mcfarlane MD Oct 09, 2017 02:06
[2017-10-09] MEDS ORDERED: Vancomycin Consult Pharmacy 1 EA OTHER SCH (02:30)
[2017-10-09] MEDS: PIPERACIL-TAZO 3.375 GM PREMIX 50 ML IV SCH ×2 (02:55→09:23)
[2017-10-09] MEDS ORDERED: VANCOMYCIN INJ 750 MG in SODIUM CHLOR 0.9% 250 ML INJ 250 ML IV ONE (03:00)
[2017-10-09 04:57] LABS: AUTOMATED NEUTROPHIL # 7.8 TH/MM3 (1.8-7.7); BASOPHIL # 0.2 TH/MM3 (0-0.2); BASOPHIL % 1.5 % (0.0-2.0); EOSINOPHIL # 0.1 TH/MM3 (0-0.4); EOSINOPHIL % 1.1 % (0.0-4.0); HEMATOCRIT 29.6 % (39.0-51.0); HEMOGLOBIN 9.3 GM/DL (13.0-17.0); LYMPH % 18.2 % (9.0-44.0); MEAN CELL VOLUME 71.5 FL (80.0-100.0); MEAN CORPUSCULAR HEMOGLOBIN 22.5 PG (27.0-34.0); MEAN CORPUSCULAR HGB CONC 31.4 % (32.0-36.0); MEAN PLATELET VOLUME 10.4 FL (7.0-11.0); MONO % 6.1 % (0.0-8.0); MONOCYTE # 0.7 TH/MM3 (0-0.9); NEUT % 73.1 % (16.0-70.0); PLATELET COUNT 175 TH/MM3 (150-450); RED BLOOD COUNT 4.14 MIL/MM3 (4.50-5.90); RED CELL DISTRIBUTION WIDTH 18.9 % (11.6-17.2); WHITE BLOOD COUNT 10.7 TH/MM3 (4.0-11.0)
[2017-10-09 05:39] LABS: CALCIUM 7.4 MG/DL (8.5-10.1); CREATININE 1.47 MG/DL (0.60-1.30)
[2017-10-09] MEDS: LEVOTHYROXINE SODIUM 100 MCG TAB PO SCH (06:11)
[2017-10-09] MEDS: HEPARIN SODIUM - SQ 10,000 UNITS/ML VIAL SQ SCH ×3 (06:12→22:22)
[2017-10-09] MEDS: ISOSORBIDE MONONITRATE 60 MG CR TAB (IMDUR) PO SCH (06:14)
[2017-10-09 06:25] LABS: CALCIUM-PROTEIN CORRECTED 8.1 MG/DL (8.5-10.1); TOTAL PROTEIN 5.8 GM/DL (6.4-8.2)
[2017-10-09] MEDS ORDERED: INSULIN HUMAN REGULAR 1,000 UNITS/10 ML VIAL IV PUSH ONE (06:30)
[2017-10-09] MEDS ORDERED: VANCOMYCIN INJ 1,000 MG in SODIUM CHLOR 0.9% 250 ML INJ 250 ML IV SCH (08:30)
[2017-10-09] MEDS ORDERED: LISINOPRIL 5 MG TAB PO SCH (09:00)
[2017-10-09] MEDS ORDERED: INSULIN DETEMIR 100 UNITS/ML VIAL SQ SCH (09:00)
[2017-10-09] MEDS: PREGABALIN 100 MG CAP PO SCH ×3 (09:23→18:00)
[2017-10-09] MEDS: INSULIN DETEMIR 100 UNITS/ML VIAL SQ SCH ×2 (09:23→21:00)
[2017-10-09] MEDS: SODIUM CHLORIDE 0.9% FLUSH 10 ML FLUSH IV FLUSH SCH ×2 (09:23→22:23)
[2017-10-09] MEDS: CLOPIDOGREL 75 MG TAB PO SCH (09:23)
[2017-10-09] MEDS: CARVEDILOL 6.25 MG TAB PO SCH ×2 (09:24→22:21)
[2017-10-09] MEDS: ASPIRIN EC 81 MG TABEC PO SCH (09:24)
[2017-10-09] MEDS: FUROSEMIDE 20 MG/2 ML VIAL IV PUSH SCH ×2 (09:24→18:01)
[2017-10-09] MEDS ORDERED: VANCOMYCIN 1,000 MG/NS 250 ML IV ONE ×2 (09:30)
[2017-10-09] MEDS ORDERED: VANCOMYCIN 1 GM/200 ML PREMIX IV ONE (10:00)
[2017-10-09] MEDS: INSULIN ASPART SUPPLEMENTAL SCALE SQ SCH ×4 (10:11→21:00)
[2017-10-09] MEDS: BUDESONIDE-FORMOTEROL 160/4.5 MCG INHALER INH SCH ×2 (10:56→22:22)
[2017-10-09] MEDS ORDERED: RESP: ALBUTEROL 2.5 MG/IPRATROPIUM 0.5 MG NEB (PRN) NEB (12:15)
--- NOTE | 2017-10-09 12:26 | HHI.PR ---
Subjective Remarks Follow-up on patient with left lower extremity cellulitis, CHF exacerbation. Patient seen and examined. Patient states his breathing has improved some but he still short of breath. He denies any cough or sputum production. Denies any complaints of chest pain. Denies any fever or chills. Reports pain, redness and swelling left lower extremity. He denies any nausea, vomiting or abdominal pain. He is s/p Right AKA by Dr. Balderas due to severe PVD. Objective Vitals Vital Signs Date Time Temp Pulse Resp B/P (MAP) Pulse Ox O2 Delivery O2 Flow Rate FiO2 10/09/17 09:30 Nasal Cannula 4.00 10/09/17 08:32 97.9 90 18 125/77 (93) 100 10/09/17 06:15 98.3 94 16 126/75 (92) 97 10/09/17 04:09 98 10/08/17 23:46 98.7 93 16 103/69 (80) 100 10/08/17 23:35 10/08/17 23:00 98 Nasal Cannula 3.00 10/08/17 22:30 90 18 126/76 (93) 100 10/08/17 21:30 90 16 116/68 (84) 100 Room Air 10/08/17 20:32 92 16 124/78 (93) 97 Room Air 10/08/17 18:42 90 18 100 Room Air 10/08/17 18:41 91 16 132/80 (97) 100 Room Air 10/08/17 13:24 98.0 84 16 87/60 (69) 99 I/O 10/08/17 10/08/17 10/08/17 10/09/17 10/09/17 10/09/17 07:00 15:00 23:00 07:00 15:00 23:00 Intake Total 1100 ml 807.5 ml 50 ml Output Total 1300 ml Balance 1100 ml 807.5 ml -1250 ml Intake IV Total 1100 ml 807.5 ml 50 ml Output Urine Total 1300 ml Result Diagram: 10/09/17 0435 10/09/17 0435 Imaging Last Impressions Lower Extremity Ultrasound 10/08/17 0000 Signed Impressions: Service Date/Time: Sunday, October 08, 2017 13:55 - CONCLUSION: 1. No evidence of deep venous thrombosis. 2. Benign cystic structure in the anterior left upper thigh measuring up to 2 cm. Chris Vital MD Chest X-Ray 10/08/17 0000 Signed Impressions: Service Date/Time: Sunday, October 08, 2017 18:13 - CONCLUSION: 1. Basilar airspace disease and small effusions. Previous CABG. Channing Camara MD Objective Remarks GENERAL: Thin chronically ill appearing male patient, INAD. Sitting up on side of bed. Appears comfortable. On 4LNc. SKIN: Cool and dry. Pale. (+)Diffuse erythema over the left lower leg with multiple wounds, 3x5cm shallow ulceration anterior tibia with serous drainage, others with dry eschar. Patient picking at scabs. HEAD: Atraumatic. Normocephalic. EYES: Extraocular motions intact. No scleral icterus. No injection or drainage. ENT: Nose without bleeding or purulent drainage. Airway patent. MMM. NECK: Trachea midline. CARDIOVASCULAR: Regular rate and rhythm without murmurs, gallops, or rubs. RESPIRATORY: Clear to auscultation. Breath sounds equal bilaterally. No wheezes , rales, or rhonchi. GASTROINTESTINAL: Abdomen soft, non-tender, nondistended. No hepato-splenomegaly , or palpable masses. No guarding. MUSCULOSKELETAL: Right AKA. Left lower extremity with 1+ pitting edema and erythema with multiple wounds. Left foot cool to touch. No distal pulses palpable. NEUROLOGICAL: Awake and alert. Cranial nerves II through XII grossly intact. Able to move extremities spontaneously. Nonfocal. Normal speech. Medications and IVs Current Medications Medications (Trade) Dose Ordered Sig/Nuzhat Route Start Time Stop Time Status Last Admin (NS Flush) 2 ml UNSCH PRN IV FLUSH 10/08/17 21:30 (NS Flush) 2 ml BID IV FLUSH 10/09/17 09:00 10/09/17 09:23 (Tylenol) 650 mg Q4H PRN PO 10/08/17 21:30 (Compazine Supp) 25 mg Q12H PRN RECTAL 10/08/17 21:30 (Heparin Inj) 5,000 units Q8H SQ 10/08/17 22:00 10/09/17 06:12 (Narcan Inj) 0.4 mg UNSCH PRN IV PUSH 10/08/17 21:30 (D50w (Vial) Inj) 50 ml UNSCH PRN IV PUSH 10/08/17 21:45 (Glucagon Inj) 1 mg UNSCH PRN OTHER 10/08/17 21:45 (NovoLOG SUPPLEMENTAL SCALE) 1 ACHS SLIDING SCALE SQ 10/09/17 08:00 10/09/17 10:11 (Ecotrin Ec) 81 mg DAILY PO 10/09/17 09:00 10/09/17 09:24 (Lipitor) 80 mg HS PO 10/09/17 21:00 (Symbicort 160-4.5 Mcg Inh) 1 puff Q12HR INH 10/09/17 09:00 10/09/17 10:56 (Coreg) 6.25 mg BID PO 10/09/17 09:00 10/09/17 09:24 (Plavix) 75 mg DAILY PO 10/09/17 09:00 10/09/17 09:23 (Imdur) 60 mg DAILY@07 PO 10/09/17 07:00 10/09/17 06:14 (Synthroid) 100 mcg DAILY@06 PO 10/09/17 06:00 10/09/17 06:11 (Prinivil) 5 mg DAILY PO 10/09/17 09:00 10/09/17 09:24 (Pamelor) 75 mg HS PO 10/09/17 21:00 (Lyrica) 100 mg TID PO 10/09/17 09:00 10/09/17 09:23 ([place] 10-325 Mg) 1 tab Q6H PRN PO 10/09/17 00:45 10/09/17 07:19 (Lasix Inj) 20 mg BID@18 IV PUSH 10/09/17 09:00 10/09/17 09:24 Pharmacy Profile Note 0 ml @ 0 mls/hr UNSCH OTHER 10/09/17 02:30 Piperacillin Sod/ Tazobactam Sod 50 ml @ 100 mls/hr Q6H IV 10/09/17 03:00 10/09/17 09:23 (Levemir Inj) 10 units BID SQ 10/09/17 09:00 10/09/17 09:23 (NovoLOG INJ) 5 units TIDAC SQ 10/09/17 12:00 Vancomycin HCl 1500 mg/Sodium Chloride 515 ml @ 257.5 mls/ hr Q24H IV 10/10/17 06:00 Miscellaneous Information SPECIFIC LAB TO BE DRAWN:VANCOMYCIN TROUGH DATE TO... ONCE ONCE .XX 10/13/17 05:45 10/13/17 05:46 A/P Assessment and Plan Assessment/plan: 1. Left lower extremity cellulitis Continue on IV Vancomycin/Zosyn. Consult ID for assistance with management in light of recurrence and severe PVD , appreciate recommendations. Patient with leukocytosis and elevated lactic acid, improved Monitor for signs of sepsis Blood cx show no growth x 1 day Consult wound care 2. Severe PVD s/p right AKA Followed by Dr. Balderas. Evaluated May [address] Herbert - not amenable to any open reconstruction, however, he would be a candidate for possible endovascular balloon angioplasty into the distal trifurcation and popliteal artery. Patient with recurrent cellulitis, nonpalpable distal pulses, cool extremity. Consult Dr. Balderas for further evaluation and treatment, appreciate recommendations. Continue on Plavix 3. CHF exacerbation/mitral valve regurgitation Chest x-ray significant for small effusions BNP 1558 Last echo 06/27/17 with EF 35-40% Patient's previous admission revealed he is not a candidate for mitral valve replacement Repeat echo pending Continue IV Lasix. Monitor electrolytes Strict I&Os Monitor for worsening fluid overload Continue supplemental oxygen to maintain O2 sats >92% 4. RENE Creatinine 1.58, baseline 0.9-1.2 avoid nephrotoxic agents Hold ACEI for now Monitor renal function, creatinine trending down Avoiding IV fluid hydration secondary to CHF exacerbation 5. Diabetes mellitus BS 513 this am, given 8u Novolin by estimator project manager Increase Levemir to 10u BID. Add prandial insulin 5u TIDAC Continue to monitor blood glucose and adjust insulin regimen accordingly Sliding scale insulin 6. CAD/hypertension/hyperlipidemia/hypothyroidism Continue home medications 7. COPD, not in acute exacerbation Continue on Symbicort Duonebs prn Continue to monitor respiratory status FEN Heart healthy diabetic diet Electrolytes: Monitor and replete when necessary Heparin Discharge Planning Pending improvement in clinical course, infectious disease and vascular surgery clearance Elsy Liz Oct 09, 2017 12:26
[2017-10-09] MEDS ORDERED: CALCIUM CARBONATE 500 MG CHEWABLE TAB CHEW ONE (12:30)
--- NOTE | 2017-10-09 12:59 | PD.ID.CON ---
History of Present Illness Service ID Consult Requested By Dr Mcfarlane Reason for Consult LLE cellulitis and severe PVD Primary Care Physician Unknown Diagnoses: History of Present Illness 62 yo male known to me from previous admissions severe PVD sp R AKA 2/2 PVD presetns with few weeks of painful red swollen LLE co pain @ rest NO fever, but lactic acid is mildly elevated to 2.2, blood clx are negative @ 1 day He had CXR done that showed some infiltrates/effusions BNP 1550+ Review of Systems Except as stated in HPI: all other systems reviewed are Neg Past Family Social History Allergies: Coded Allergies: No Known Allergies (Unverified , 10/08/17) Past Medical History 1. Hypertension, 2. Hyperlipidemia, 3. Chronic pain syndrome 4. History of chronic reflux and esophageal ulcerations requiring dilatation in the past 5. Degenerative arthritis of both the cervical and lumbosacral spine with chronic pain 6. Chronic lower extremity neuropathy, 7. History of seizure disorders in the past, presumably due to hypoglycemia. Past Surgical History Right above-knee amputation for PAD Appendectomy Partial colon resection Coronary artery bypass graft . Fusions of the lumbosacral spine. Active Ordered Medications Medications where reviewed in EMR Antibiotics Include: vanco zotalan Family History reviewed non contributory Social History + tobacco positive, 6-7 sig/day no ETOH no drugs Pt denies ever doing IV drugs Physical Exam Vital Signs Vital Signs Date Time Temp Pulse Resp B/P (MAP) Pulse Ox O2 Delivery O2 Flow Rate FiO2 10/09/17 09:30 Nasal Cannula 4.00 10/09/17 08:32 97.9 90 18 125/77 (93) 100 10/09/17 06:15 98.3 94 16 126/75 (92) 97 10/09/17 04:09 98 10/08/17 23:46 98.7 93 16 103/69 (80) 100 10/08/17 23:35 10/08/17 23:00 98 Nasal Cannula 3.00 10/08/17 22:30 90 18 126/76 (93) 100 10/08/17 21:30 90 16 116/68 (84) 100 Room Air 10/08/17 20:32 92 16 124/78 (93) 97 Room Air 10/08/17 18:42 90 18 100 Room Air 10/08/17 18:41 91 16 132/80 (97) 100 Room Air 10/08/17 13:24 98.0 84 16 87/60 (69) 99 Physical Exam CONSTITUTIONAL/GENERAL: This is an adequately nourished patient, in no apparent distress. TUBES/LINES/DRAINS: SKIN: No jaundice, rashes, or lesions. . Skin temperature appropriate. Not diaphoretic. HEAD: Atraumatic. Normocephalic. EYES: Pupils equal and round and reactive. Extraocular motions intact. No scleral icterus. No injection or drainage. Fundi not examined. ENT: Hearing carson decreased (baseline). \ Nose without bleeding or purulent drainage. Oral mucosae without visible erythema, exudates, masses, or lesions. Poor dentition NECK: Trachea midline. Supple, nontender. CARDIOVASCULAR: Regular rate and rhythm without murmurs, gallops, or rubs. No JVD. Peripheral pulses symmetric. Well healed sternotomy scar RESPIRATORY/CHEST: Symmetric, unlabored respirations. Clear to auscultation. Breath sounds equal bilaterally. No wheezes, rales, or rhonchi. GASTROINTESTINAL: Abdomen soft, non-tender, nondistended. No hepato-splenomegaly , or palpable masses. No guarding. Bowel sounds present. Well healed incisions from previous surgery MUSCULOSKELETAL: Extremities without clubbing, cyanosis, fairly tight edema 2 + Sp R AKA - well healed L LEfoot. with cold to touch, dependent rubour No palpable pulses poorly healing multiple skin lesions abcence of skin appendages LYMPHATICS: No palpable cervical or supraclavicular adenopathy. NEUROLOGICAL: Awake and alert. Motor and sensory grossly within normal limits. Follows commands. Clear speech . Moves all extremities. PSYCHIATRIC: No obvious anxiety/depression. no apparent hallucinations or other psychotic thought process. Laboratory Laboratory Tests Test 10/08/17 18:40 10/08/17 20:30 10/08/17 20:38 10/09/17 04:35 White Blood Count 11.4 10.7 Red Blood Count 5.34 4.14 Hemoglobin 11.8 9.3 Hematocrit 37.9 29.6 Mean Corpuscular Volume 71.1 71.5 Mean Corpuscular Hemoglobin 22.2 22.5 Mean Corpuscular Hemoglobin Concent 31.2 31.4 Red Cell Distribution Width 19.1 18.9 Platelet Count 233 175 Mean Platelet Volume 10.3 10.4 Neutrophils (%) (Auto) 62.4 73.1 Lymphocytes (%) (Auto) 29.9 18.2 Monocytes (%) (Auto) 3.8 6.1 Eosinophils (%) (Auto) 2.7 1.1 Basophils (%) (Auto) 1.2 1.5 Neutrophils # (Auto) 7.1 7.8 Lymphocytes # (Auto) 3.4 2.0 Monocytes # (Auto) 0.4 0.7 Eosinophils # (Auto) 0.3 0.1 Basophils # (Auto) 0.1 0.2 CBC Comment DIFF FINAL DIFF FINAL Differential Comment Prothrombin Time 10.1 Prothromb Time International Ratio 1.0 Activated Partial Thromboplast Time 26.6 Blood Urea Nitrogen 28 30 Creatinine 1.58 1.47 Random Glucose 273 466 Total Protein 8.5 5.8 Albumin 4.0 Calcium Level 8.8 7.4 Alkaline Phosphatase 297 Aspartate Amino Transf (AST/SGOT) 55 Alanine Aminotransferase (ALT/SGPT) 61 Total Bilirubin 0.5 Direct Bilirubin 0.2 Sodium Level 132 133 Potassium Level 4.1 4.7 Chloride Level 96 100 Carbon Dioxide Level 24.0 19.0 Anion Gap 12 14 Estimat Glomerular Filtration Rate 45 49 Lactic Acid Level 2.2 1.8 Indirect Bilirubin 0.3 Total Creatine Kinase 77 Troponin I LESS THAN 0.02 B-Type Natriuretic Peptide 1558 B-Hydroxybutyrate 0.30 Blood Gas Puncture Site IV Blood Gas Patient Temperature 98.6 Venous Blood pH 7.37 Venous Blood Partial Pressure CO2 41 Venous Blood Partial Pressure O2 28 Venous Blood HCO3 23 Venous Blood Oxygen Saturation 41 Venous Blood Oxygen Content 5.7 Venous Blood Base Excess -1.1 Oxygen Delivery Device NASAL CANNULA Blood Gas Ventilator Setting 2 Protein Corrected Calcium 8.1 Date/Time Source Procedure Growth Status 10/08/17 18:40 Blood Peripheral Aerobic Blood Culture - Preliminary NO GROWTH IN 1 DAY Resulted 10/08/17 18:40 Blood Peripheral Anaerobic Blood Culture - Preliminary NO GROWTH IN 1 DAY Resulted Result Diagram: 10/09/17 0435 10/09/17 0435 Imaging Last Impressions Lower Extremity Ultrasound 10/08/17 0000 Signed Impressions: Service Date/Time: Sunday, October 08, 2017 13:55 - CONCLUSION: 1. No evidence of deep venous thrombosis. 2. Benign cystic structure in the anterior left upper thigh measuring up to 2 cm. Chris Vital MD Chest X-Ray 3/26/18 0000 Signed Impressions: Service Date/Time: Sunday, October 08, 2017 18:13 - CONCLUSION: 1. Basilar airspace disease and small effusions. Previous CABG. Channing Camara MD Assessment and Plan Assessment and Plan PVD severe Cellulitis, mild and probably chronic in the settings of PVD Poorly controlled DM CHF exacerbation - consult vascular (Dr Herbert previously saw the pt) cont vancomycin dc zosyn Discussed Condition With Brittany Huber MD Oct 09, 2017 12:59
[2017-10-09] MEDS: INSULIN ASPART 1,000 UNITS/10 ML VIAL SQ SCH ×2 (13:23→19:17)
--- NOTE | 2017-10-09 16:24 | EKG ---
Date Performed: 10/08/2017 Time Performed: 17:56:10 PTAGE: 62 years EKG: Sinus rhythm MARKED LEFT AXIS DEVIATION LEFT BUNDLE BRANCH BLOCK ABNORMAL ECG PREVIOUS TRACING : 08/21/[address] elevation has improved somewhat. Clinical corre lation is recommended. DOCTOR: Derrick Kidd Interpretating Date/Time 10/09/2017 16:22:44
[2017-10-09 19:16] LABS: % SATURATION IRON PROFILE 4.8 % (20-50); IRON (FE) 17 MCG/DL (65-175); TOTAL IRON BINDING CAPACITY 353 MCG/DL (250-450)
[2017-10-09 19:41] LABS: FERRITIN 24 NG/ML (26-388)
[2017-10-09 19:42] LABS: FOLATE GREATER THAN 20.0 NG/ML (3.1-17.5)
[2017-10-09] MEDS: CALCIUM CARBONATE 500 MG CHEWABLE TAB CHEW SCH (22:20)
[2017-10-09] MEDS: ATORVASTATIN 80 MG TAB PO SCH (22:20)
[2017-10-09] MEDS: NORTRIPTYLINE HCL 25 MG CAP PO SCH (22:21)
[2017-10-10] VITALS (10 sets, daily range): BP systolic 117–156; BP diastolic 57–91; PULSE 80–94; RESP 14–20; TEMP 97.2–98; O2SAT 96–100
[2017-10-10] MEDS: ACETAMINOPHEN/HYDROcodone 325 MG/10 MG TAB PO PRN ×3 (05:41→18:47)
[2017-10-10] MEDS: LEVOTHYROXINE SODIUM 100 MCG TAB PO SCH (05:41)
[2017-10-10] MEDS: HEPARIN SODIUM - SQ 10,000 UNITS/ML VIAL SQ SCH ×3 (05:43→20:51)
[2017-10-10] MEDS: ISOSORBIDE MONONITRATE 60 MG CR TAB (IMDUR) PO SCH (05:46)
[2017-10-10] MEDS: CALCIUM CARBONATE 500 MG CHEWABLE TAB CHEW SCH ×2 (05:46→20:50)
[2017-10-10] MEDS: VANCOMYCIN 1,500 MG/NS 500 ML IV SCH ×2 (05:48)
[2017-10-10] MEDS: INSULIN ASPART SUPPLEMENTAL SCALE SQ SCH ×4 (08:00→20:37)
[2017-10-10] MEDS: INSULIN ASPART 1,000 UNITS/10 ML VIAL SQ SCH ×3 (08:00→17:00)
[2017-10-10] MEDS: PREGABALIN 100 MG CAP PO SCH ×3 (09:00→18:41)
[2017-10-10] MEDS: INSULIN DETEMIR 100 UNITS/ML VIAL SQ SCH ×2 (09:00→20:50)
[2017-10-10] MEDS ORDERED: PANTOPRAZOLE SOD 40 MG DELAYED RELEASE TAB PO ONE (09:15)
[2017-10-10] MEDS: CARVEDILOL 6.25 MG TAB PO SCH ×2 (09:55→20:50)
[2017-10-10] MEDS: FUROSEMIDE 20 MG/2 ML VIAL IV PUSH SCH ×2 (09:55→18:42)
[2017-10-10] MEDS: CLOPIDOGREL 75 MG TAB PO SCH (09:55)
[2017-10-10] MEDS: ASPIRIN EC 81 MG TABEC PO SCH (09:56)
[2017-10-10 09:59] LABS: AUTOMATED NEUTROPHIL # 6.1 TH/MM3 (1.8-7.7); BASOPHIL # 0.2 TH/MM3 (0-0.2); BASOPHIL % 2.1 % (0.0-2.0); EOSINOPHIL # 0.5 TH/MM3 (0-0.4); EOSINOPHIL % 4.6 % (0.0-4.0); HEMATOCRIT 32.4 % (39.0-51.0); HEMOGLOBIN 10.1 GM/DL (13.0-17.0); LYMPH % 27.1 % (9.0-44.0); LYMPHOCYTE # 2.8 TH/MM3 (1.0-4.8); MEAN CELL VOLUME 71.3 FL (80.0-100.0); MEAN CORPUSCULAR HEMOGLOBIN 22.2 PG (27.0-34.0); MEAN CORPUSCULAR HGB CONC 31.2 % (32.0-36.0); MEAN PLATELET VOLUME 10.7 FL (7.0-11.0); MONO % 6.3 % (0.0-8.0); MONOCYTE # 0.6 TH/MM3 (0-0.9); NEUT % 59.9 % (16.0-70.0); PLATELET COUNT 188 TH/MM3 (150-450); RED BLOOD COUNT 4.54 MIL/MM3 (4.50-5.90); RED CELL DISTRIBUTION WIDTH 18.6 % (11.6-17.2); WHITE BLOOD COUNT 10.2 TH/MM3 (4.0-11.0)
[2017-10-10] MEDS: SODIUM CHLORIDE 0.9% FLUSH 10 ML FLUSH IV FLUSH SCH ×2 (10:01→20:50)
[2017-10-10] MEDS: BUDESONIDE-FORMOTEROL 160/4.5 MCG INHALER INH SCH ×2 (10:01→20:53)
[2017-10-10 10:13] LABS: BICARBONATE 20.6 MEQ/L (21.0-32.0); CALCIUM 8.4 MG/DL (8.5-10.1); CREATININE 1.14 MG/DL (0.60-1.30)
--- NOTE | 2017-10-10 11:47 | ECHRPT ---
Indication: Heart Failure CONCLUSIONS The left ventricular systolic function is severely reduced with an estimated ejection fraction in th e range of 30-35%. . Severe LV systolic dysfunction with estimated EF of 25-30%. Mild concentric left ventricular hypertrophy. Moderately dilated left ventricle. The left atrial size is hxte-gy-eisbtfgdhs dilated. Mild thickening of the mitral valve leaflets. Severe mitral valve regurgitation. There is moderate tricuspid regurgitation. The estimated pulmonary arterial pressure is 42.3 mmHg. Mild pulmonary valve regurgitation. There is a small pericardial effusion present. A left sided pleural effusion is present. BP: 111 / 58 HR: 81 Rhythm: MEASUREMENTS (Male / Female) Normal Values Technical Quality:Fair 2D ECHO LV Diastolic Diameter PLAX 5.9 cm 4.2 - 5.9 / 3.9 - 5.3 cm LV Systolic Diameter PLAX 5.1 cm IVS Diastolic Thickness 1.0 cm 0.6 - 1.0 / 0.6 - 0.9 cm LVPW Diastolic Thickness 1.0 cm 0.6 - 1.0 / 0.6 - 0.9 cm LV Relative Wall Thickness 0.3 RV Internal Dim ED PLAX 4.1 cm LVOT Diameter 2.3 cm LA Systolic Diameter LX 4.9 cm 3.0 - 4.0 / 2.7 - 3.8 cm M-MODE Aortic Root Diameter MM 3.2 cm LA Systolic Diameter MM 5.2 cm LA Ao Ratio MM 1.6 MV E Point Septal Separation 2.0 cm AV Cusp Separation MM 2.2 cm DOPPLER AV Peak Velocity 86.4 cm/s AV Peak Gradient 3.0 mmHg LVOT Peak Velocity 79.5 cm/s LVOT Peak Gradient 2.5 mmHg AV Area Cont Eq pk 3.8 cm MV Area PHT 3.9 cm Mitral E Point Velocity 90.3 cm/s Mitral A Point Velocity 62.7 cm/s Mitral E to A Ratio 1.4 LV E' Lateral Velocity 9.2 cm/s Mitral E to LV E' Lateral Ratio 9.8 LV E' Septal Velocity 4.6 cm/s Mitral E to LV E' Septal Ratio 19.6 TR Peak Velocity 284.0 cm/s TR Peak Gradient 32.3 mmHg Right Atrial Pressure 10.0 mmHg Pulmonary Artery Systolic Pressu 42.3 mmHg Right Ventricular Systolic Press 42.3 mmHg FINDINGS LEFT VENTRICLE The left ventricular systolic function is severely reduced with an estimated ejection fraction in th e range of 30-35%. Mild concentric left ventricular hypertrophy. Moderately dilated left ventricle. RIGHT VENTRICLE Normal right ventricular size and systolic function. LEFT ATRIUM The left atrial size is soeu-mf-zzdzwgarnd dilated. RIGHT ATRIUM The right atrial size is normal. ATRIAL SEPTUM Normal atrial septal thickness without atrial level shunting by limited color doppler interrogation. AORTA The aortic root and proximal ascending aorta are normal in size on limited imaging. MITRAL VALVE Mild thickening of the mitral valve leaflets. Severe mitral valve regurgitation. AORTIC VALVE Trileaflet aortic valve. No aortic valve stenosis or regurgitation. TRICUSPID VALVE Structurally normal tricuspid valve. There is moderate tricuspid regurgitation. The estimated pulmonary arterial pressure is 42.3 mmHg. PULMONARY VALVE Mild pulmonary valve regurgitation. VESSELS The inferior vena cava is normal in size. PERICARDIUM There is a small pericardial effusion present. A left sided pleural effusion is present. Jorge Bean MD, FACC (Electronically Signed) Final Date:10 October 2017 11:46
--- NOTE | 2017-10-10 17:05 | PD.WCN.NOT ---
Wound Consult Description: Wound consult ordered by Mayuri SALEH Communicated with: Dequan CANALES [address] [place] [address], Recommendation: 1. Elevate lower extremities when in bed 2. Cleanse LLE with normal saline pat dry apply Optifoam AG to wound base.Secure with rolled gauze change every 3 days or as needed for dislodgement/ exudate. 3. Apply Calazime cream to Left lower extremity in thin layer daily. 4. Follow up with out patient wound center. Additional Information: Patient was seen today on by law writer and Ludivina CANLAES.Patient alert and oriented x3 sitting on the edge of bed upon writers arrival.Patient states he has heartburn at this time that is why he is sitting on edge of bed.Patient was able to independently sit back in bed and elevate lower extremity.Assessment finding of left lower extremity finding erythema from ~3 inches below knee to distal gaiter area circumferentially. Patient has Venous stasis ulcer measuring ~3.4cm x 2.1cm non friable dry exudate.Wound base is 95% non friable dried serous exudate 5% pink tissue.Scant serous drainage noted.Multiple Tiny non friable dried serous areas.Left lower extremity cleansed with normal saline pat dry Opti foam cut to fit applied to wound base and covered with rolled gauze secured with tape.Calazime cream applied in thin layer to LLE to promote moisture/protection. Juan C Dash [facility] Oct 10, 2017 17:05
--- NOTE | 2017-10-10 19:12 | HHI.PR ---
Subjective Remarks Patient sitting on the chair eating his dinner No fever or chills He is wearing his long socks and shoes on his affected limb I advised him to keep it open to the air only with a dressing Objective Vitals Vital Signs Date Time Temp Pulse Resp B/P (MAP) Pulse Ox O2 Delivery O2 Flow Rate FiO2 10/10/17 16:00 97.3 82 20 121/57 (78) 100 10/10/17 12:00 97.7 88 20 125/71 (89) 98 10/10/17 09:32 94 10/10/17 08:00 96 Room Air 10/10/17 08:00 97.5 94 18 151/91 (111) 99 10/10/17 06:55 17 10/10/17 04:00 98.0 91 17 156/89 (111) 98 10/10/17 04:00 Room Air 10/10/17 03:50 80 10/10/17 02:00 Room Air 10/10/17 01:45 97.2 86 17 123/75 (91) 96 10/10/17 00:35 98.0 84 14 117/69 (85) 96 10/10/17 00:25 87 10/09/17 22:05 Nasal Cannula 4.00 10/09/17 22:05 100 Nasal Cannula 4.00 10/09/17 20:25 97.6 87 16 120/74 (89) 100 10/09/17 20:10 86 I/O 10/09/17 10/09/17 10/09/17 10/10/17 10/10/17 10/10/17 07:00 15:00 23:00 07:00 15:00 23:00 Intake Total 807.5 ml 780 ml 400 ml 0 ml 720 ml Output Total 2300 ml 350 ml 0 ml Balance 807.5 ml -1520 ml 50 ml 0 ml 720 ml Intake Oral 480 ml 400 ml 0 ml 720 ml IV Total 807.5 ml 300 ml Output Urine Total 2300 ml 350 ml 0 ml # Voids 1 3 # Bowel Movements 0 0 1 Result Diagram: 10/10/1793910/10/1740 Objective Remarks GENERAL: This is a well-nourished, well-developed patient, in no apparent distress. SKIN: No rashes, warm and dry, scar of left scapular shoulder surgery in the past HEAD: Atraumatic. Normocephalic. EYES: Pupils equal round and reactive. Extraocular motions intact. No scleral icterus. ENT: Nose without bleeding, or drainage, Airway patent. NECK: Trachea midline. Supple CARDIOVASCULAR: Regular rate and rhythm without murmurs, gallops, or rubs. RESPIRATORY: Fair air entry bilaterally. No wheezes, rales, or rhonchi. GASTROINTESTINAL: Abdomen soft, non-tender, nondistended. Positive bowel sounds MUSCULOSKELETAL: Right AKA with prosthesis, lower extremity cellulitis and gauze NEUROLOGICAL: Awake and alert. Moves all extremity. Normal speech.no focal neurological deficit A/P Assessment and Plan 1. Left lower extremity cellulitis Continue on IV Vancomycin/Zosyn. Consult ID for assistance with management in light of recurrence and severe PVD , appreciate recommendations. Patient with leukocytosis and elevated lactic acid, improved Monitor for signs of sepsis Blood cx show no growth x 2 day Consult wound care 2. Severe PVD s/p right AKA Followed by Dr. Balderas. Evaluated May [address] Herbert - not amenable to any open reconstruction, however, he would be a candidate for possible endovascular balloon angioplasty into the distal trifurcation and popliteal artery. Patient with recurrent cellulitis, nonpalpable distal pulses, cool extremity. Consult Dr. Balderas for further evaluation and treatment, appreciate recommendations. Continue on Plavix 3. CHF exacerbation/mitral valve regurgitation Chest x-ray significant for small effusions BNP 1558 Last echo 06/27/17 with EF 35-40% Patient's previous admission revealed he is not a candidate for mitral valve replacement Repeat echo pending Continue IV Lasix. Monitor electrolytes Strict I&Os Monitor for worsening fluid overload Continue supplemental oxygen to maintain O2 sats >92% 4. RENE Creatinine 1.58, baseline 0.9-1.2 avoid nephrotoxic agents Hold ACEI for now Monitor renal function, creatinine trending down Avoiding IV fluid hydration secondary to CHF exacerbation 5. Diabetes mellitus With fluctuating BS between 80 and 400 Increase Levemir to 13 u BID on 10/10. Add prandial insulin 5u TIDAC Continue to monitor blood glucose and adjust insulin regimen accordingly Sliding scale insulin 6. CAD/hypertension/hyperlipidemia/hypothyroidism Continue home medications 7. COPD, not in acute exacerbation Continue on Symbicort Duonebs prn Continue to monitor respiratory status FEN Heart healthy diabetic diet Electrolytes: Monitor and replete when necessary Heparin Discharge Planning Pending clinical improvement Brianna Sierra MD Oct 10, 2017 19:12
[2017-10-10] MEDS: ATORVASTATIN 80 MG TAB PO SCH (20:50)
[2017-10-10] MEDS: NORTRIPTYLINE HCL 25 MG CAP PO SCH (20:50)
[2017-10-11] VITALS (13 sets, daily range): BP systolic 124–157; BP diastolic 77–95; PULSE 81–99; RESP 16–20; TEMP 97–98.2; O2SAT 97–100
[2017-10-11] MEDS: ACETAMINOPHEN/HYDROcodone 325 MG/10 MG TAB PO PRN ×3 (01:06→21:29)
[2017-10-11] MEDS: LEVOTHYROXINE SODIUM 100 MCG TAB PO SCH (05:34)
[2017-10-11] MEDS: HEPARIN SODIUM - SQ 10,000 UNITS/ML VIAL SQ SCH ×3 (05:34→21:11)
[2017-10-11] MEDS: VANCOMYCIN 1,500 MG/NS 500 ML IV SCH ×2 (05:35)
[2017-10-11] MEDS: ISOSORBIDE MONONITRATE 60 MG CR TAB (IMDUR) PO SCH (07:06)
[2017-10-11] MEDS: CALCIUM CARBONATE 500 MG CHEWABLE TAB CHEW SCH ×2 (07:49→21:07)
[2017-10-11] MEDS: ASPIRIN EC 81 MG TABEC PO SCH (07:50)
[2017-10-11] MEDS: PANTOPRAZOLE SOD 40 MG DELAYED RELEASE TAB PO SCH (07:50)
[2017-10-11] MEDS: CLOPIDOGREL 75 MG TAB PO SCH (07:50)
[2017-10-11] MEDS: CARVEDILOL 6.25 MG TAB PO SCH ×2 (07:50→21:07)
[2017-10-11] MEDS: FUROSEMIDE 20 MG/2 ML VIAL IV PUSH SCH ×2 (07:51→18:41)
[2017-10-11] MEDS: INSULIN ASPART SUPPLEMENTAL SCALE SQ SCH ×4 (08:00→21:11)
[2017-10-11] MEDS: SODIUM CHLORIDE 0.9% FLUSH 10 ML FLUSH IV FLUSH SCH ×2 (08:03→21:07)
[2017-10-11] MEDS: BUDESONIDE-FORMOTEROL 160/4.5 MCG INHALER INH SCH ×2 (08:05→21:30)
[2017-10-11] MEDS: PREGABALIN 100 MG CAP PO SCH ×3 (09:17→18:34)
[2017-10-11] MEDS: INSULIN ASPART 1,000 UNITS/10 ML VIAL SQ SCH ×3 (09:18→18:41)
[2017-10-11] MEDS: PROCHLORPERAZINE 25 MG SUPP RECTAL PRN ×2 (09:19→09:22)
[2017-10-11] MEDS: INSULIN DETEMIR 100 UNITS/ML VIAL SQ SCH ×2 (09:19→21:10)
--- NOTE | 2017-10-11 14:04 | HHI.PR ---
Subjective Remarks no complains Objective Vitals Vital Signs Date Time Temp Pulse Resp B/P (MAP) Pulse Ox O2 Delivery O2 Flow Rate FiO2 10/11/17 12:03 88 10/11/17 12:00 97.9 84 20 139/87 (104) 98 10/11/17 08:02 99 10/11/17 08:00 98.0 99 20 157/95 (115) 97 10/11/17 04:00 98.1 95 18 151/84 (106) 99 10/11/17 02:06 18 10/11/17 00:00 98.2 91 18 145/82 (103) 98 10/10/17 20:06 97.4 86 18 127/73 (91) 100 10/10/17 16:00 97.3 82 20 121/57 (78) 100 I/O 10/10/17 10/10/17 10/10/17 10/11/17 10/11/17 10/11/17 07:00 15:00 23:00 07:00 15:00 23:00 Intake Total 0 ml 720 ml 220 ml 515 ml Output Total 0 ml 1000 ml Balance 0 ml 720 ml -780 ml 515 ml Intake Oral 0 ml 720 ml 220 ml IV Total 515 ml Output Urine Total 0 ml 1000 ml # Voids 3 # Bowel Movements 0 1 0 Result Diagram: 10/10/17 0940 10/10/17 0940 Imaging Last Impressions Lower Extremity Ultrasound 10/08/17 0000 Signed Impressions: Service Date/Time: Sunday, October 08, 2017 13:55 - CONCLUSION: 1. No evidence of deep venous thrombosis. 2. Benign cystic structure in the anterior left upper thigh measuring up to 2 cm. Chris Vital MD Chest X-Ray 10/08/17 0000 Signed Impressions: Service Date/Time: Sunday, October 08, 2017 18:13 - CONCLUSION: 1. Basilar airspace disease and small effusions. Previous CABG. Channing Camara MD Objective Remarks awake and alert, oriented x 3 anicteric lungs- no rales regular rhythm abdomen soft, right LE- atrophic, mulitple superficial ulceration LLE- with prosthesis A/P Assessment and Plan 62 years old 1. Left lower extremity cellulitis Continue on IV Vancomycin. ID ff Patient with leukocytosis and elevated lactic acid, improved Monitor for signs of sepsis Blood cx show no growth x 2 day wound care team ff 2. Severe PVD s/p right AKA Followed by Dr. Balderas. Evaluated May [address] Herbert - not amenable to any open reconstruction, however, he would be a candidate for possible endovascular balloon angioplasty into the distal trifurcation and popliteal artery. Patient with recurrent cellulitis, nonpalpable distal pulses, cool extremity. Consult Dr. aBlderas for further evaluation and treatment, appreciate recommendations. Continue on Plavix 3. CHF exacerbation/mitral valve regurgitation- unerlying CMP- clinically not in failure CAD/hypertension/hyperlipidemia/hypothyroidism Chest x-ray significant for small effusions BNP 1558 Last echo 06/27/17 with EF 35-40% Patient's previous admission revealed he is not a candidate for mitral valve replacement Repeat echo pending Continue IV Lasix. Monitor electrolytes Strict I&Os Monitor for worsening fluid overload Continue supplemental oxygen to maintain O2 sats >92% 4. RENE- stable, non oliguric Creatinine 1.58, baseline 0.9-1.2 avoid nephrotoxic agents Hold ACEI for now Monitor renal function, creatinine trending down Avoiding IV fluid hydration secondary to CHF exacerbation 5. Diabetes mellitus- good reading from yesterday and this am A1C from 08/2017- 8.5 With fluctuating BS between 80 and 400. patient states good hypoglycemic awareness Increased Levemir to 13 u BID on 10/10. prandial insulin 5u TIDAC Continue to monitor blood glucose and adjust insulin regimen accordingly Sliding scale insulin 6. Hypothyroidism Continue home medications 7. COPD, not in acute exacerbation Continue on Symbicort Duonebs prn Continue to monitor respiratory status FEN Heart healthy diabetic diet Electrolytes: Monitor and replete when necessary Heparin Discharge Planning Pending clinical improvement Nela Coyle MD Oct 11, 2017 14:04
--- NOTE | 2017-10-11 17:19 | PD.CAR.PN ---
CVT Progress Note Subjective/Hospital Course: 62-year-old male known to me from numerous previous admissions. He has severe peripheral vascular disease and required right above-knee amputation last year. Now patient comes with cellulitis of his left foot and lower leg as well as swelling and blistering due to tension and ischemia of the skin Physical exam reveals palpable femoral pulse and no palpable distal pulses whatsoever Foot is cold with a very faint posterior tibial pulse by Doppler There is dependent rubor and elevation pallor with thin shiny skin. Sensation is significantly decreased. The cellulitis seems to be resolved Skin of the lower leg is leathery firm and indurated with diffuse lipofibrosis. Recommendation Patient has no unreconstructable vascular disease at this point. There is no endovascular or open way to revascularize the patient's leg for there is no target vessel. Conservative therapy seems to be working as far as cellulitis and infection resolution. Patient continues to smoke about a pack cigarettes a day despite multiple medical problems and comorbidities of cardiovascular system and lungs This patient will eventually require left above-knee amputation but right now foot is still viable so I would not do anything at this time. Thanks J Objective: Vital Signs Date Time Temp Pulse Resp B/P (MAP) Pulse Ox O2 Delivery O2 Flow Rate FiO2 10/11/17 12:03 88 10/11/17 12:00 97.9 84 20 139/87 (104) 98 10/11/17 08:02 99 10/11/17 08:00 98.0 99 20 157/95 (115) 97 10/11/17 08:00 Room Air 10/11/17 04:00 98.1 95 18 151/84 (106) 99 10/11/17 02:06 18 10/11/17 00:00 98.2 91 18 145/82 (103) 98 10/10/17 20:06 97.4 86 18 127/73 (91) 100 Result Diagram: 10/10/17 0940 10/10/17 0940 Rudy Balderas MD Oct 11, 2017 17:19
[2017-10-11] MEDS: NORTRIPTYLINE HCL 25 MG CAP PO SCH (21:08)
[2017-10-11] MEDS: ATORVASTATIN 80 MG TAB PO SCH (21:08)
[2017-10-12] VITALS (9 sets, daily range): BP systolic 108–132; BP diastolic 61–85; PULSE 77–96; RESP 16–20; TEMP 96.9–98.1; O2SAT 96–99
[2017-10-12] MEDS ORDERED: PHARMACY ORDERED LAB ONE (05:45)
[2017-10-12] MEDS: LEVOTHYROXINE SODIUM 100 MCG TAB PO SCH (06:11)
[2017-10-12] MEDS: ISOSORBIDE MONONITRATE 60 MG CR TAB (IMDUR) PO SCH (06:11)
[2017-10-12] MEDS: HEPARIN SODIUM - SQ 10,000 UNITS/ML VIAL SQ SCH ×3 (06:12→22:00)
[2017-10-12] MEDS: ACETAMINOPHEN/HYDROcodone 325 MG/10 MG TAB PO PRN ×3 (06:15→18:17)
[2017-10-12] MEDS: VANCOMYCIN 1,500 MG/NS 500 ML IV SCH ×2 (06:16)
[2017-10-12] MEDS: PREGABALIN 100 MG CAP PO SCH ×3 (08:02→17:25)
[2017-10-12 08:06] LABS: CREATININE 0.91 MG/DL (0.60-1.30)
[2017-10-12] MEDS: CARVEDILOL 6.25 MG TAB PO SCH ×2 (08:30→22:01)
[2017-10-12] MEDS: FUROSEMIDE 20 MG/2 ML VIAL IV PUSH SCH ×2 (08:30→17:25)
[2017-10-12] MEDS: PANTOPRAZOLE SOD 40 MG DELAYED RELEASE TAB PO SCH (08:31)
[2017-10-12] MEDS: ASPIRIN EC 81 MG TABEC PO SCH (08:31)
[2017-10-12] MEDS: CLOPIDOGREL 75 MG TAB PO SCH (08:31)
[2017-10-12] MEDS: CALCIUM CARBONATE 500 MG CHEWABLE TAB CHEW SCH ×2 (08:31→22:01)
[2017-10-12] MEDS: INSULIN ASPART SUPPLEMENTAL SCALE SQ SCH ×4 (08:32→22:01)
[2017-10-12] MEDS: SODIUM CHLORIDE 0.9% FLUSH 10 ML FLUSH IV FLUSH SCH ×2 (08:32→22:04)
[2017-10-12] MEDS: BUDESONIDE-FORMOTEROL 160/4.5 MCG INHALER INH SCH ×2 (08:32→22:02)
[2017-10-12] MEDS: INSULIN ASPART 1,000 UNITS/10 ML VIAL SQ SCH ×3 (08:32→16:32)
[2017-10-12] MEDS: INSULIN DETEMIR 100 UNITS/ML VIAL SQ SCH ×2 (08:33→22:00)
--- NOTE | 2017-10-12 12:21 | HHI.PR ---
Subjective Remarks afebrile, no complains of pain no diarrhea, good po Objective Vitals Vital Signs Date Time Temp Pulse Resp B/P (MAP) Pulse Ox O2 Delivery O2 Flow Rate FiO2 10/12/17 08:00 97.7 92 19 123/85 (98) 99 10/12/17 04:00 96.9 85 16 119/83 (95) 96 10/12/17 03:49 79 10/11/17 23:48 81 10/11/17 23:35 97.0 84 16 124/78 (93) 97 10/11/17 20:00 Room Air 10/11/17 20:00 97.9 82 18 136/77 (96) 100 10/11/17 19:48 82 10/11/17 18:39 87 131/81 (98) 10/11/17 16:03 86 10/11/17 16:00 97.1 82 18 137/79 (98) 100 I/O 10/11/17 10/11/17 10/11/17 10/12/17 10/12/17 10/12/17 07:00 15:00 23:00 07:00 15:00 23:00 Intake Total 220 ml 515 ml 720 ml 0 ml Output Total 1000 ml Balance -780 ml 515 ml 720 ml 0 ml Intake Oral 220 ml 720 ml 0 ml IV Total 515 ml Output Urine Total 1000 ml # Voids 2 1 # Bowel Movements 0 0 0 Result Diagram: 10/10/17 0940 10/12/17 0600 Imaging Last Impressions Lower Extremity Ultrasound 10/08/17 0000 Signed Impressions: Service Date/Time: Sunday, October 08, 2017 13:55 - CONCLUSION: 1. No evidence of deep venous thrombosis. 2. Benign cystic structure in the anterior left upper thigh measuring up to 2 cm. Chris Vital MD Chest X-Ray 10/08/17 0000 Signed Impressions: Service Date/Time: Sunday, October 08, 2017 18:13 - CONCLUSION: 1. Basilar airspace disease and small effusions. Previous CABG. Channing Camara MD Objective Remarks awake and alert, oriented x 3 anicteric lungs- no rales regular rhythm abdomen soft, right LE- atrophic, multiple superficial ulceration LLE- with prosthesis A/P Assessment and Plan 62 years old Left lower extremity severe cellulitis with superficial wounds- slow improvement Continue on IV Vancomycin. ID ff Patient with leukocytosis and elevated lactic acid, improved Blood cx show no growth so far wound care team ff- daily History of Severe PVD s/p right AKA Followed by Dr. Balderas. Evaluated May [address] Herbert - not amenable to any open reconstruction, however, he would be a candidate for possible endovascular balloon angioplasty into the distal trifurcation and popliteal artery. Seen this admission- no plans for surgery Continue on Plavix CHF exacerbation/mitral valve regurgitation- underlying CMP- clinically not in failure CAD/hypertension/hyperlipidemia/hypothyroidism Chest x-ray significant for small effusions BNP 1558 Last echo 06/27/17 with EF 35-40% Patient's previous admission revealed he is not a candidate for mitral valve replacement Repeat echo pending Continue Lasix- change to po . Monitor electrolytes Strict I&Os Monitor for worsening fluid overload Continue supplemental oxygen to maintain O2 sats >92% consider restarting HUMBLE- with close monitoring of BMP RENE- stable, non oliguric Creatinine 1.58, baseline 0.9-1.2 avoid nephrotoxic agents Hold ACEI for now Monitor renal function, creatinine trending down Diabetes mellitus- good reading from yesterday and this am A1C from 08/2017- 8.5 With fluctuating BS between 80 and 400. patient states good hypoglycemic awareness Increased Levemir to 13 u BID on 10/10. prandial insulin 5u TIDAC Continue to monitor blood glucose and adjust insulin regimen accordingly Sliding scale insulin Hypothyroidism Continue home medications COPD, not in acute exacerbation Continue on Symbicort Duonebs prn Continue to monitor respiratory status FEN Heart healthy diabetic diet Electrolytes: Monitor and replete when necessary Heparin Discharge Planning Pending clinical improvement Nela Coyle MD Oct 12, 2017 12:20
--- NOTE | 2017-10-12 17:28 | HHI.IDPN ---
Subjective Subjective Remarks pt was seen by Dr Keon Abbott surgical tx recommended, recommended observation; prognosis for extreety preservation is poor Antibiotics vancomycin Allergies: Coded Allergies: No Known Allergies (Unverified , 10/08/17) Objective . Vital Signs Date Time Temp Pulse Resp B/P (MAP) Pulse Ox O2 Delivery O2 Flow Rate FiO2 10/12/17 12:00 98.1 78 19 108/61 (77) 99 10/12/17 08:00 97.7 92 19 123/85 (98) 99 10/12/17 04:00 96.9 85 16 119/83 (95) 96 10/12/17 03:49 79 10/11/17 23:48 81 10/11/17 23:35 97.0 84 16 124/78 (93) 97 10/11/17 20:00 Room Air 10/11/17 20:00 97.9 82 18 136/77 (96) 100 10/11/17 19:48 82 10/11/17 18:39 87 131/81 (98) . Laboratory Tests Test 10/12/17 06:00 Creatinine 0.91 MG/DL Estimat Glomerular Filtration Rate 85 ML/MIN Imaging Last Impressions Lower Extremity Ultrasound 10/08/17 0000 Signed Impressions: Service Date/Time: Sunday, October 08, 2017 13:55 - CONCLUSION: 1. No evidence of deep venous thrombosis. 2. Benign cystic structure in the anterior left upper thigh measuring up to 2 cm. Chris Vital MD Chest X-Ray 10/08/17 0000 Signed Impressions: Service Date/Time: Sunday, October 08, 2017 18:13 - CONCLUSION: 1. Basilar airspace disease and small effusions. Previous CABG. Channing Camara MD Physical Exam CONSTITUTIONAL/GENERAL: This is an adequately nourished patient, in no apparent distress. TUBES/LINES/DRAINS: SKIN: No jaundice, rashes, or lesions. . Skin temperature appropriate. Not diaphoretic. RESPIRATORY/CHEST: unlabored respirations. MUSCULOSKELETAL: Extremities without clubbing, cyanosis, edema improved Sp R AKA L LEfoot. with cold to touch, dependent rubour No palpable pulses poorly healing multiple skin lesions abcence of skin appendages NEUROLOGICAL: Awake and alert. Motor and sensory grossly within normal limits. Follows commands. Clear speech . Moves all extremities. PSYCHIATRIC: No obvious anxiety/depression. no apparent hallucinations or other psychotic thought process. Assessment & Plan Remarks PVD severe Cellulitis, mild and probably chronic in the settings of PVD Poorly controlled DM CHF exacerbation - cont vancomycin - once ready for d/c will switch to po (keflex 500 mg po qid + doxy bid) Brittany Collazo MD Oct 12, 2017 17:28
[2017-10-12] MEDS: ATORVASTATIN 80 MG TAB PO SCH (22:01)
[2017-10-12] MEDS: NORTRIPTYLINE HCL 25 MG CAP PO SCH (22:19)
[2017-10-13] VITALS: BP 131/63; PULSE 93; PULSE 94; RESP 20; TEMP 98.4; O2SAT 96
[2017-10-13] MEDS: ACETAMINOPHEN/HYDROcodone 325 MG/10 MG TAB PO PRN ×4 (00:19→18:20)
[2017-10-13 04:00] VITALS: BP 122/69; PULSE 86; RESP 18; TEMP 97.9; O2SAT 94
[2017-10-13] MEDS: HEPARIN SODIUM - SQ 10,000 UNITS/ML VIAL SQ SCH ×3 (06:00→22:03)
[2017-10-13] MEDS: VANCOMYCIN 1,500 MG/NS 500 ML IV SCH ×2 (06:36)
[2017-10-13] MEDS: ISOSORBIDE MONONITRATE 60 MG CR TAB (IMDUR) PO SCH (06:36)
[2017-10-13] MEDS: LEVOTHYROXINE SODIUM 100 MCG TAB PO SCH (06:37)
[2017-10-13 08:00] VITALS: BP 119/80; PULSE 82; RESP 20; TEMP 97.9; O2SAT 98
[2017-10-13] MEDS: INSULIN ASPART 1,000 UNITS/10 ML VIAL SQ SCH ×2 (08:00→12:00)
[2017-10-13] MEDS: INSULIN ASPART SUPPLEMENTAL SCALE SQ SCH ×3 (08:00→20:34)
[2017-10-13] MEDS: INSULIN DETEMIR 100 UNITS/ML VIAL SQ SCH ×2 (09:00→21:00)
[2017-10-13] MEDS: CLOPIDOGREL 75 MG TAB PO SCH (09:31)
[2017-10-13] MEDS: PREGABALIN 100 MG CAP PO SCH ×3 (09:31→17:53)
[2017-10-13] MEDS: CALCIUM CARBONATE 500 MG CHEWABLE TAB CHEW SCH ×2 (09:31→20:16)
[2017-10-13] MEDS: CARVEDILOL 6.25 MG TAB PO SCH ×2 (09:31→20:16)
[2017-10-13] MEDS: ASPIRIN EC 81 MG TABEC PO SCH (09:31)
[2017-10-13] MEDS: PANTOPRAZOLE SOD 40 MG DELAYED RELEASE TAB PO SCH (09:31)
[2017-10-13] MEDS: FUROSEMIDE 20 MG/2 ML VIAL IV PUSH SCH (09:32)
[2017-10-13] MEDS: SODIUM CHLORIDE 0.9% FLUSH 10 ML FLUSH IV FLUSH SCH ×2 (09:32→20:17)
[2017-10-13] MEDS: BUDESONIDE-FORMOTEROL 160/4.5 MCG INHALER INH SCH ×2 (09:32→20:17)
--- NOTE | 2017-10-13 10:03 | HHI.PR ---
Subjective Remarks afebrile no complains no fever no chest pain or shortness of breath good BS readings Objective Vitals Vital Signs Date Time Temp Pulse Resp B/P (MAP) Pulse Ox O2 Delivery O2 Flow Rate FiO2 10/13/17 08:00 97.9 82 20 119/80 (93) 98 10/13/17 04:00 97.9 86 18 122/69 (86) 94 10/13/17 04:00 86 10/13/17 02:16 Room Air 10/13/17 00:00 98.4 94 20 131/63 (85) 96 10/13/17 00:00 93 10/12/17 20:00 92 10/12/17 20:00 97.3 96 20 132/77 (95) 98 10/12/17 15:53 84 10/12/17 12:01 77 10/12/17 12:00 98.1 78 19 108/61 (77) 99 I/O 10/12/17 10/12/17 10/12/17 10/13/17 10/13/17 10/13/17 07:00 15:00 23:00 07:00 15:00 23:00 Intake Total 0 ml 500 ml Balance 0 ml 500 ml Intake Oral 0 ml IV Total 500 ml # Voids 1 # Bowel Movements 0 Result Diagram: 10/10/17 0940 10/12/17 0600 Imaging Last Impressions Lower Extremity Ultrasound 10/08/17 0000 Signed Impressions: Service Date/Time: Sunday, October 08, 2017 13:55 - CONCLUSION: 1. No evidence of deep venous thrombosis. 2. Benign cystic structure in the anterior left upper thigh measuring up to 2 cm. Chris Vital MD Chest X-Ray 10/08/17 0000 Signed Impressions: Service Date/Time: Sunday, October 08, 2017 18:13 - CONCLUSION: 1. Basilar airspace disease and small effusions. Previous CABG. Channing Camara MD Objective Remarks awake and alert, oriented x 3 anicteric lungs- no rales regular rhythm abdomen soft, right LE- atrophic, multiple superficial ulceration- dry, no drainage mild erythema- improving LLE- with prosthesis A/P Assessment and Plan 62 years old Left lower extremity severe cellulitis with superficial wounds-gradually improving Continue on IV Vancomycin. ID ff Patient with leukocytosis and elevated lactic acid, improved Blood cx show no growth so far wound care team ff- daily History of Severe PVD s/p right AKA Followed by Dr. Balderas. Evaluated May [address] Herbert - not amenable to any open reconstruction, however, he would be a candidate for possible endovascular balloon angioplasty into the distal trifurcation and popliteal artery. Seen this admission- no plans for surgery Continue on Plavix CHF exacerbation/mitral valve regurgitation- underlying CMP- clinically not in failure CAD/hypertension/hyperlipidemia/hypothyroidism Chest x-ray significant for small effusions BNP 1558 Last echo 06/27/17 with EF 35-40% Patient's previous admission revealed he is not a candidate for mitral valve replacement Repeat echo pending Continue Lasix- change to po 40 mg bid . Monitor electrolytes Strict I&Os Monitor for worsening fluid overload Continue supplemental oxygen to maintain O2 sats >92% consider restarting SHANE- with close monitoring of BMP- Lisinopril 2.5 mg po daily RENE- stable, non oliguric Creatinine 1.58, baseline 0.9-1.2 avoid nephrotoxic agents - Shane restarted- ff BMP Monitor renal function, creatinine trending down Diabetes mellitus- good reading s A1C from 08/2017- 8.5 Levemir to 13 u BID on 10/10. prandial insulin 5u TIDAC Continue to monitor blood glucose and adjust insulin regimen accordingly Sliding scale insulin Hypothyroidism Continue home medications COPD, not in acute exacerbation Continue on Symbicort Duonebs prn Continue to monitor respiratory status Iron deficiency anemia stool guiace negative start ferrous sulfate 325 mg po bid on PPI FEN Heart healthy diabetic diet Electrolytes: Monitor and replete when necessary Heparin Discharge Planning Pending clinical improvement Nela Coyle MD Oct 13, 2017 10:03
[2017-10-13] MEDS ORDERED: PILL SPLITTER OTHER PRN (10:15)
[2017-10-13 12:00] VITALS: BP 114/75; PULSE 89; RESP 20; TEMP 97.3; O2SAT 100
[2017-10-13 12:50] LABS: BICARBONATE 30.4 MEQ/L (21.0-32.0); CALCIUM 8.4 MG/DL (8.5-10.1); CREATININE 1.04 MG/DL (0.60-1.30)
[2017-10-13] MEDS: LISINOPRIL 5 MG TAB PO SCH (13:09)
[2017-10-13] MEDS: FERROUS SULFATE 325 MG (65 MG ELEMENTAL IRON) TAB PO SCH ×2 (13:09→17:53)
[2017-10-13 16:00] VITALS: BP 120/86; PULSE 84; RESP 20; TEMP 97.1; O2SAT 98
[2017-10-13] MEDS: FUROSEMIDE 40 MG TAB PO SCH (17:53)
[2017-10-13] MEDS: PANTOPRAZOLE SOD 20 MG DELAYED RELEASE TAB PO SCH (18:18)
[2017-10-13 20:00] VITALS: BP 129/85; PULSE 87; RESP 16; TEMP 97.3; O2SAT 100
[2017-10-13] MEDS: NORTRIPTYLINE HCL 25 MG CAP PO SCH (20:16)
[2017-10-13] MEDS: ATORVASTATIN 80 MG TAB PO SCH (20:16)
[2017-10-13] MEDS: DEXTROSE 50% IN WATER 50 ML VIAL(D50) IV PUSH PRN (20:35)
[2017-10-14] VITALS (11 sets, daily range): BP systolic 101–138; BP diastolic 62–84; PULSE 79–96; RESP 16–20; TEMP 97.3–98.9; O2SAT 95–100
[2017-10-14] MEDS: ACETAMINOPHEN/HYDROcodone 325 MG/10 MG TAB PO PRN ×3 (00:56→22:10)
[2017-10-14] MEDS: LEVOTHYROXINE SODIUM 100 MCG TAB PO SCH (05:54)
[2017-10-14] MEDS: HEPARIN SODIUM - SQ 10,000 UNITS/ML VIAL SQ SCH ×3 (05:55→22:08)
[2017-10-14] MEDS: ISOSORBIDE MONONITRATE 60 MG CR TAB (IMDUR) PO SCH (06:00)
[2017-10-14 07:38] LABS: CREATININE 1.13 MG/DL (0.60-1.30)
[2017-10-14] MEDS: INSULIN ASPART 1,000 UNITS/10 ML VIAL SQ SCH (08:36)
[2017-10-14] MEDS: INSULIN ASPART SUPPLEMENTAL SCALE SQ SCH ×4 (08:37→21:00)
[2017-10-14] MEDS: ASPIRIN EC 81 MG TABEC PO SCH (08:39)
[2017-10-14] MEDS: CLOPIDOGREL 75 MG TAB PO SCH (08:40)
[2017-10-14] MEDS: LISINOPRIL 5 MG TAB PO SCH (08:40)
[2017-10-14] MEDS: CARVEDILOL 6.25 MG TAB PO SCH ×2 (08:40→22:08)
[2017-10-14] MEDS: PREGABALIN 100 MG CAP PO SCH ×3 (08:40→17:43)
[2017-10-14] MEDS: PANTOPRAZOLE SOD 20 MG DELAYED RELEASE TAB PO SCH (08:40)
[2017-10-14] MEDS: SODIUM CHLORIDE 0.9% FLUSH 10 ML FLUSH IV FLUSH SCH ×2 (08:41→22:08)
[2017-10-14] MEDS: CALCIUM CARBONATE 500 MG CHEWABLE TAB CHEW SCH ×2 (08:41→22:07)
[2017-10-14] MEDS: FUROSEMIDE 40 MG TAB PO SCH ×2 (08:41→17:43)
[2017-10-14] MEDS: INSULIN DETEMIR 100 UNITS/ML VIAL SQ SCH ×2 (08:42→21:00)
[2017-10-14] MEDS: BUDESONIDE-FORMOTEROL 160/4.5 MCG INHALER INH SCH ×2 (08:45→22:09)
[2017-10-14] MEDS: VANCOMYCIN 1,500 MG/NS 500 ML IV SCH ×2 (09:53)
--- NOTE | 2017-10-14 12:53 | HHI.PR ---
Subjective Remarks up in chair no pain but complains of reflux symptoms- "burping" no diarrhea Objective Vitals Vital Signs Date Time Temp Pulse Resp B/P (MAP) Pulse Ox O2 Delivery O2 Flow Rate FiO2 10/14/17 12:15 97.9 84 20 114/75 (88) 97 10/14/17 08:39 98.0 89 19 124/73 (90) 97 10/14/17 04:13 92 10/14/17 04:00 97.8 90 16 129/81 (97) 98 10/14/17 04:00 Room Air 10/14/17 00:28 96 10/14/17 00:00 98.1 91 16 138/84 (102) 96 10/14/17 00:00 Room Air 10/13/17 20:00 Room Air 10/13/17 20:00 97.3 87 16 129/85 (100) 100 10/13/17 16:00 97.1 84 20 120/86 (97) 98 I/O 10/13/17 10/13/17 10/13/17 10/14/17 10/14/17 10/14/17 07:00 15:00 23:00 07:00 15:00 23:00 Intake Total 500 ml 240 ml Output Total 800 ml 500 ml Balance 500 ml -800 ml -260 ml Intake Oral 240 ml IV Total 500 ml Output Urine Total 800 ml 500 ml # Voids 4 # Bowel Movements 1 Result Diagram: 10/10/17 0940 10/14/17 0614 Imaging Last Impressions Lower Extremity Ultrasound 10/08/17 0000 Signed Impressions: Service Date/Time: Sunday, October 08, 2017 13:55 - CONCLUSION: 1. No evidence of deep venous thrombosis. 2. Benign cystic structure in the anterior left upper thigh measuring up to 2 cm. Chris Vital MD Chest X-Ray 10/08/17 0000 Signed Impressions: Service Date/Time: Sunday, October 08, 2017 18:13 - CONCLUSION: 1. Basilar airspace disease and small effusions. Previous CABG. Channing Camara MD Objective Remarks awake and alert, oriented x 3 anicteric lungs- no rales regular rhythm abdomen soft, right LE- atrophic, multiple superficial ulceration- dry, no drainage mild erythema- continue to improves LLE- with prosthesis A/P Assessment and Plan 62 years old Left lower extremity severe cellulitis with superficial wounds-gradually improving Continue on IV Vancomycin. ID ff Patient with leukocytosis and elevated lactic acid, improved Blood cx show no growth so far wound care team ff- daily History of Severe PVD s/p right AKA Followed by Dr. Balderas. Evaluated May [address] Herbert - not amenable to any open reconstruction, however, he would be a candidate for possible endovascular balloon angioplasty into the distal trifurcation and popliteal artery. Seen this admission- no plans for surgery Continue on Plavix CHF exacerbation/mitral valve regurgitation- underlying CMP- clinically not in failure CAD/hypertension/hyperlipidemia/hypothyroidism Chest x-ray significant for small effusions BNP 1558 Last echo 06/27/17 with EF 35-40% Patient's previous admission revealed he is not a candidate for mitral valve replacement Repeat echo pending Continue Lasix- change to po 40 mg bid . Monitor electrolytes Strict I&Os Continue supplemental oxygen to maintain O2 sats >92% Lisinopril 2.5 mg po daily- started 10/12- ff BMP RENE- stable, non oliguric Creatinine 1.58, baseline 0.9-1.2 avoid nephrotoxic agents - Shane restarted- ff BMP Monitor renal function, creatinine trending down Diabetes mellitus- good reading s- some low readings A1C from 08/2017- 8.5 Levemir to 13 u BID on 10/10. - decreae to 8 units bid DC prandial insulin 5u TIDAC for now and montior- keep on sliding scale Continue to monitor blood glucose and adjust insulin regimen accordingly Sliding scale insulin Hypothyroidism Continue home medications COPD, not in acute exacerbation Continue on Symbicort Duonebs prn Continue to monitor respiratory status Iron deficiency anemia stool guiace negative start ferrous sulfate 325 mg po bid on PPI FEN Heart healthy diabetic diet Electrolytes: Monitor and replete when necessary Heparin Discharge Planning Pending clinical improvement Nela Coyle MD Oct 14, 2017 12:53
[2017-10-14] MEDS: ALUMINUM/MAGNESIUM/SIMETH 30 ML CUP PO SCH ×2 (13:14→19:00)
[2017-10-14] MEDS: FERROUS SULFATE 325 MG (65 MG ELEMENTAL IRON) TAB PO SCH ×2 (13:14→17:43)
[2017-10-14] MEDS: DEXTROSE 50% IN WATER 50 ML VIAL(D50) IV PUSH PRN (19:00)
[2017-10-14] MEDS: NORTRIPTYLINE HCL 25 MG CAP PO SCH (22:07)
[2017-10-14] MEDS: PANTOPRAZOLE SOD 40 MG DELAYED RELEASE TAB PO SCH (22:08)
[2017-10-14] MEDS: ATORVASTATIN 80 MG TAB PO SCH (22:08)
[2017-10-15] VITALS (8 sets, daily range): BP systolic 96–121; BP diastolic 62–74; PULSE 78–91; RESP 16–19; TEMP 97.2–97.9; O2SAT 92–100
[2017-10-15] MEDS: ALUMINUM/MAGNESIUM/SIMETH 30 ML CUP PO SCH ×4 (00:34→18:14)
[2017-10-15] MEDS: ACETAMINOPHEN/HYDROcodone 325 MG/10 MG TAB PO PRN ×2 (03:55→12:59)
[2017-10-15] MEDS ORDERED: PHARMACY ORDERED LAB ONE (05:45)
[2017-10-15] MEDS: LEVOTHYROXINE SODIUM 100 MCG TAB PO SCH (06:17)
[2017-10-15] MEDS: VANCOMYCIN 1,500 MG/NS 500 ML IV SCH ×2 (06:17)
[2017-10-15] MEDS: ISOSORBIDE MONONITRATE 60 MG CR TAB (IMDUR) PO SCH (06:17)
[2017-10-15] MEDS: HEPARIN SODIUM - SQ 10,000 UNITS/ML VIAL SQ SCH ×3 (06:18→20:27)
[2017-10-15 08:57] LABS: AUTOMATED NEUTROPHIL # 5.9 TH/MM3 (1.8-7.7); BASOPHIL # 0.3 TH/MM3 (0-0.2); BASOPHIL % 3.1 % (0.0-2.0); EOSINOPHIL # 0.2 TH/MM3 (0-0.4); EOSINOPHIL % 2.2 % (0.0-4.0); HEMATOCRIT 31.7 % (39.0-51.0); LYMPH % 30.3 % (9.0-44.0); LYMPHOCYTE # 3.2 TH/MM3 (1.0-4.8); MEAN CELL VOLUME 69.9 FL (80.0-100.0); MEAN CORPUSCULAR HGB CONC 31.5 % (32.0-36.0); MEAN PLATELET VOLUME 11.4 FL (7.0-11.0); MONO % 8.4 % (0.0-8.0); MONOCYTE # 0.9 TH/MM3 (0-0.9); PLATELET COUNT 160 TH/MM3 (150-450); RED BLOOD COUNT 4.54 MIL/MM3 (4.50-5.90); RED CELL DISTRIBUTION WIDTH 19.5 % (11.6-17.2); WHITE BLOOD COUNT 10.5 TH/MM3 (4.0-11.0)
[2017-10-15] MEDS: INSULIN DETEMIR 100 UNITS/ML VIAL SQ SCH ×2 (09:00→20:28)
[2017-10-15 09:11] LABS: BICARBONATE 20.4 MEQ/L (21.0-32.0); CALCIUM 8.7 MG/DL (8.5-10.1); CREATININE 1.48 MG/DL (0.60-1.30)
[2017-10-15] MEDS: CALCIUM CARBONATE 500 MG CHEWABLE TAB CHEW SCH ×2 (09:58→20:27)
[2017-10-15] MEDS: ASPIRIN EC 81 MG TABEC PO SCH (09:59)
[2017-10-15] MEDS: FUROSEMIDE 40 MG TAB PO SCH (09:59)
[2017-10-15] MEDS: PREGABALIN 100 MG CAP PO SCH ×3 (09:59→18:14)
[2017-10-15] MEDS: LISINOPRIL 5 MG TAB PO SCH (09:59)
[2017-10-15] MEDS: PANTOPRAZOLE SOD 40 MG DELAYED RELEASE TAB PO SCH ×2 (09:59→20:27)
[2017-10-15] MEDS: CARVEDILOL 6.25 MG TAB PO SCH ×2 (10:00→20:27)
[2017-10-15] MEDS: CLOPIDOGREL 75 MG TAB PO SCH (10:00)
[2017-10-15] MEDS: INSULIN ASPART SUPPLEMENTAL SCALE SQ SCH ×4 (10:00→20:28)
[2017-10-15] MEDS: SODIUM CHLORIDE 0.9% FLUSH 10 ML FLUSH IV FLUSH SCH ×2 (10:00→20:27)
[2017-10-15] MEDS: BUDESONIDE-FORMOTEROL 160/4.5 MCG INHALER INH SCH ×2 (10:01→20:28)
--- NOTE | 2017-10-15 10:37 | HHI.PR ---
Subjective Remarks patient up in chair erratic blood sugars main complain now - "severe reflux", poor po now states history of esophageal dilatation x 3 in the past Objective Vitals Vital Signs Date Time Temp Pulse Resp B/P (MAP) Pulse Ox O2 Delivery O2 Flow Rate FiO2 10/15/17 08:00 97.8 87 16 121/74 (90) 97 10/15/17 04:04 85 10/15/17 04:00 Room Air 10/15/17 04:00 97.3 85 17 107/69 (82) 92 10/15/17 00:00 Room Air 10/15/17 00:00 91 10/14/17 23:55 98.9 89 18 112/66 (81) 95 10/14/17 20:00 Room Air 10/14/17 20:00 79 10/14/17 20:00 97.3 80 18 101/62 (75) 100 10/14/17 16:12 97.8 87 20 108/66 (80) 95 10/14/17 16:00 84 10/14/17 16:00 84 10/14/17 12:15 97.9 84 20 114/75 (88) 97 I/O 10/14/17 10/14/17 10/14/17 10/15/17 10/15/17 10/15/17 07:00 15:00 23:00 07:00 15:00 23:00 Intake Total 240 ml 716 ml Output Total 500 ml 0 ml Balance -260 ml 716 ml Intake Oral 240 ml 716 ml Output Urine Total 500 ml 0 ml # Voids 2 # Bowel Movements 1 Result Diagram: 10/15/17 0840 10/15/17 0840 Imaging Last Impressions Lower Extremity Ultrasound 10/08/17 0000 Signed Impressions: Service Date/Time: Sunday, October 08, 2017 13:55 - CONCLUSION: 1. No evidence of deep venous thrombosis. 2. Benign cystic structure in the anterior left upper thigh measuring up to 2 cm. Chris Vital MD Chest X-Ray 10/08/17 0000 Signed Impressions: Service Date/Time: Sunday, October 08, 2017 18:13 - CONCLUSION: 1. Basilar airspace disease and small effusions. Previous CABG. Channing Camara MD Objective Remarks awake and alert, oriented x 3 anicteric lungs- no rales regular rhythm abdomen soft, right LE- atrophic, multiple superficial ulceration- dry, no drainage mild erythema- continue to improves LLE- with prosthesis A/P Assessment and Plan 62 years old Left lower extremity severe cellulitis with superficial wounds-gradually improving Continue on IV Vancomycin. ID ff Patient with leukocytosis and elevated lactic acid, improved Blood cx show no growth so far wound care team ff- daily Severe GERD symptoms History of Barretts s/p EGD dilatation in 2016 now states history of esophageal dilation in the past x 2 - started Protonix 40 mg po bid 10/14- sliht improvement - GI consult History of Severe PVD s/p right AKA Followed by Dr. Balderas. Evaluated May [address] Herbert - not amenable to any open reconstruction, however, he would be a candidate for possible endovascular balloon angioplasty into the distal trifurcation and popliteal artery. Seen this admission- no plans for surgery Continue on Plavix CHF exacerbation/mitral valve regurgitation- underlying CMP- clinically not in failure CAD/hypertension/hyperlipidemia/hypothyroidism Chest x-ray significant for small effusions BNP 1558 Last echo 06/27/17 with EF 35-40% Patient's previous admission revealed he is not a candidate for mitral valve replacement Repeat echo pending Continue - change lasix back to 20 mg po bid starting tomorrow. DC lasix 40 bid .-with inc creatinine Strict I&Os Continue supplemental oxygen to maintain O2 sats >92% Lisinopril 2.5 mg po daily- started 10/12- ff BMP RENE- stable, non oliguric- creatinine up again- poor po HYperkalemia avoid nephrotoxic agents - Shane was restarted 10/14 - HOld - start gentle hydration - hold lasix today, restart 20 mg po bid in am Diabetes mellitus- good reading s- some low readings- erratic due to poor po A1C from 08/2017- 8.5 Levemir to 13 u BID on 10/10. - decrease to 8 units bid DC prandial insulin 5u TIDAC for now and montior- keep on sliding scale Continue to monitor blood glucose and adjust insulin regimen accordingly Sliding scale insulin Hypothyroidism Continue home medications COPD, not in acute exacerbation Continue on Symbicort Duonebs prn Continue to monitor respiratory status Iron deficiency anemia stool guiace negative start ferrous sulfate 325 mg po bid on PPI FEN Heart healthy diabetic diet Electrolytes: Monitor and replete when necessary Heparin Discharge Planning Pending clinical improvement Nela Coyle MD Oct 15, 2017 10:37
--- NOTE | 2017-10-15 12:07 | HHI.PR ---
Addendum to Inpatient Note Addendum Reason: Additional Documentation Additional Information switcvh to po abx once ready total ttreament duration up to 14 days Brittany Collazo MD Oct 15, 2017 12:07
[2017-10-15] MEDS: FERROUS SULFATE 325 MG (65 MG ELEMENTAL IRON) TAB PO SCH ×2 (12:58→18:14)
[2017-10-15] MEDS: SODIUM CHLOR 0.9% 1000 ML INJ 1,000 ML IV SCH (13:14)
--- NOTE | 2017-10-15 13:29 | PD.CONS ---
HPI History of Present Illness This is a 62 year old M with multiple medical problems who presented to the ER with complaints of LLE edema, fatigue, and SOB on exertion for over a month. Pt currently undergoing tx with Vancomycin for left lower extremity cellulitis. Seen by Dr. Balderas for PAD of left extremity, per his note there is no endovascular or open way to revascularize pts leg and therefore recommends conservative therapy, noting that at some point pt will require a L AKA. Our service has been consulted to evaluate pt for complaints of acid reflux and dysphagia. Pt reports chronic acid reflux, but states it has been fairly well controlled with Prilosec at home. Reports awful acid reflux since admission, has been off the Prilosec, Protonix was added last night. Pt had one episode of emesis and relates it to his acid reflux not being controlled. Also been having epigastric pain and burning sensation in his throat since admission. Last EGD done here in November of last year consistent with severe esophagitis and pathology showing acute ulcerative esophagitis. Pt also complaining of dysphagia but states it has been going years, however seems to be getting worse. Only has dysphagia with solids, denies odynophagia. Denies any recent weight loss, changes in BMs. Denies taking NSAIDs, ETOH. Current daily smoker. (Meghann Collins) PFSH Past Medical History Mitral valve regurgitation CAD Degenerative disc disease docs and diabetes mellitus Hypothyroidism Hypertension Hyperlipidemia Peripheral arterial disease CHF (last echo on 06/27/17 showed mitral valve regurgitation with an EF of 35-40 %) Diabetes mellitus Past Surgical History AKA CABG 4 in 2004 Scapula radiating Appendectomy Tonsillectomy (Meghann Collins) Coded Allergies: No Known Allergies (Unverified , 10/08/17) Family History Father with both DM and CAD. Mom with CAD. Social History Quit tobacco 1 year ago. Denies alcohol and illicit drugs (Meghann Collins) Review of Systems Gastrointestinal: COMPLAINS OF: Abdominal pain (epigastric burning ), Vomiting , Difficulty Swallowing, Heartburn, DENIES: Black stools, Bloody stools, Constipation, Diarrhea, Nausea, Odynophagia, Swelling of Abdomen, Hematemesis ( Meghann Collins) GI Exam Vitals I&O Vital Signs Date Time Temp Pulse Resp B/P (MAP) Pulse Ox O2 Delivery O2 Flow Rate FiO2 4/2/18 12:57 20 10/15/17 12:00 97.9 78 16 108/62 (77) 96 10/15/17 08:00 97.8 87 16 121/74 (90) 97 10/15/17 04:04 85 10/15/17 04:00 Room Air 10/15/17 04:00 97.3 85 17 107/69 (82) 92 10/15/17 00:00 Room Air 10/15/17 00:00 91 10/14/17 23:55 98.9 89 18 112/66 (81) 95 10/14/17 20:00 Room Air 10/14/17 20:00 79 10/14/17 20:00 97.3 80 18 101/62 (75) 100 10/14/17 16:12 97.8 87 20 108/66 (80) 95 10/14/17 16:00 84 10/14/17 16:00 84 I/O 10/14/17 10/14/17 10/14/17 10/15/17 10/15/17 10/15/17 07:00 15:00 23:00 07:00 15:00 23:00 Intake Total 240 ml 716 ml Output Total 500 ml 0 ml Balance -260 ml 716 ml Intake Oral 240 ml 716 ml Output Urine Total 500 ml 0 ml # Voids 2 # Bowel Movements 1 Imaging Last Impressions Lower Extremity Ultrasound 10/08/17 0000 Signed Impressions: Service Date/Time: Sunday, October 08, 2017 13:55 - CONCLUSION: 1. No evidence of deep venous thrombosis. 2. Benign cystic structure in the anterior left upper thigh measuring up to 2 cm. Chris Vital MD Chest X-Ray 10/08/17 0000 Signed Impressions: Service Date/Time: Sunday, October 08, 2017 18:13 - CONCLUSION: 1. Basilar airspace disease and small effusions. Previous CABG. Channing Camara MD Laboratory Test 10/14/17 19:10 10/15/17 06:10 10/15/17 08:40 Random Glucose 152 MG/DL 341 MG/DL Vancomycin Level Trough 20.7 MCG/ML White Blood Count 10.5 TH/MM3 Red Blood Count 4.54 MIL/MM3 Hemoglobin 10.0 GM/DL Hematocrit 31.7 % Mean Corpuscular Volume 69.9 FL Mean Corpuscular Hemoglobin 22.0 PG Mean Corpuscular Hemoglobin Concent 31.5 % Red Cell Distribution Width 19.5 % Platelet Count 160 TH/MM3 Mean Platelet Volume 11.4 FL Neutrophils (%) (Auto) 56.0 % Lymphocytes (%) (Auto) 30.3 % Monocytes (%) (Auto) 8.4 % Eosinophils (%) (Auto) 2.2 % Basophils (%) (Auto) 3.1 % Neutrophils # (Auto) 5.9 TH/MM3 Lymphocytes # (Auto) 3.2 TH/MM3 Monocytes # (Auto) 0.9 TH/MM3 Eosinophils # (Auto) 0.2 TH/MM3 Basophils # (Auto) 0.3 TH/MM3 CBC Comment DIFF FINAL Differential Comment Blood Urea Nitrogen 30 MG/DL Creatinine 1.48 MG/DL Calcium Level 8.7 MG/DL Sodium Level 131 MEQ/L Potassium Level 5.9 MEQ/L Chloride Level 99 MEQ/L Carbon Dioxide Level 20.4 MEQ/L Anion Gap 12 MEQ/L Estimat Glomerular Filtration Rate 48 ML/MIN Date/Time Source Procedure Growth Status 10/08/17 18:40 Blood Peripheral Aerobic Blood Culture - Final NO GROWTH IN 5 DAYS Complete 10/08/17 18:40 Blood Peripheral Anaerobic Blood Culture - Final NO GROWTH IN 5 DAYS Complete 10/09/17 00:00 Stool Stool Stool Occult Blood (AARON) - Final HEMOCCULT NEGATIVE Complete Physical Examination HEENT: Normocephalic; atraumatic CHEST: Even/unlabored CARDIAC: RRR ABDOMEN: Soft, nondistended, nontender; bowel sounds active EXTREMITIES: R AKA, LLE with erythema and mild edema FIRE SAFETY INSPECTOR: No focal deficits; alert and oriented times three. (Meghann Collins) Assessment and Plan Plan Assessment: - Acid reflux, pt states fairly well controlled at home with Prilosec, has not been receiving that since admission and attributes his awful acid reflux while in the hospital to this. Was started on Protonix last night. EGD in November of last year done here consistent with severe esophagitis and pathology showing acute ulcerative esophagitis - Dysphagia- states for years, but has been getting worse, only with solids, denies dysphagia with liquids. - Epigastric pain described as a burning sensation that travels into his throat - Anemia- microcytic, iron, % sat, ferritin low. - CAD S/P CABG in 2004, severe PAD S/P R AKA and Dr. Balderas currently following and notes that no surgical option to improve blood flow to LLE, pt will need L AKA at some point. Pt continues to smoke almost a pack a day. Currently on Plavix, ASA, and Heparin. - Impaired renal function- GFR worsening since admission Plan: UGI series Protonix EGD on hold due to need for anticoagulation Further recommendations based on clinical course and results of above Pt has been seen and examined by myself and Dr. Austin and this note is written on his behalf (Meghann Collins) Physician Comments Seen and examined with ARIC, very drowsy. UGI noted. Continue protonix/ carafate. Repeat EGD when possible. Diet as tolerated. (Lona Austin MD) Meghann Collins Oct 15, 2017 13:29 Lona Austin MD Oct 15, 2017 17:00
--- NOTE | 2017-10-15 16:41 | RADRPT ---
EXAM DATE/TIME: 10/15/2017 15:22 [facility] COMPARISON: No previous studies available for comparison. INDICATIONS : Dysphagia, reflux FLUORO TIME: 2.5 minutes IMAGE COUNT: 17 CONTRAST: 1. Liquid E-Z Paque Barium Sulfate (60% w/v, 41% w.w) MEDICAL HISTORY : Diabetes mellitus type II. SURGICAL HISTORY : CABG. right above the knee amputation ENCOUNTER: Initial ACUITY: 1 week LOCATION: Bilateral abdomen FINDINGS: Preliminary film demonstrates left pleural effusion and patchy infiltrates at the left lung base. The patient was observed during swallowing of thin barium. The GE junction is normal in appearance t he several episodes of gastroesophageal reflux are noted. Normal flow fracture with minimal the stom ach, in greatest size in the region of the body. Intraluminal material may obscure masses. The ruga l folds of the fundus appear normal in thickness. Overhead films demonstrated contrast in the duodenal C-loop and a normal configuration the duodenal b ulb. CONCLUSION: 1. Multiple episodes of gastroesophageal reflux were noted during the exam without evidence of hiatus hernia. 2. Multiple intraluminal filling defects in the stomach, possible bezoar, precludes evaluation of muc osal abnormalities of the stomach. 3. No evidence of gastric outlet obstruction. Ananth Messina MD on October 15, 2017 at 16:34 Board Certified Radiologist. This report was verified electronically.
[2017-10-15] MEDS: FUROSEMIDE 20 MG TAB PO SCH (18:14)
[2017-10-15] MEDS: NORTRIPTYLINE HCL 25 MG CAP PO SCH (20:26)
[2017-10-15] MEDS: ATORVASTATIN 80 MG TAB PO SCH (20:27)
[2017-10-16] VITALS (13 sets, daily range): BP systolic 94–109; BP diastolic 58–67; PULSE 74–82; RESP 14–20; TEMP 94.7–97.8; O2SAT 94–100
[2017-10-16] MEDS: ALUMINUM/MAGNESIUM/SIMETH 30 ML CUP PO SCH ×4 (01:04→18:02)
[2017-10-16] MEDS: ACETAMINOPHEN/HYDROcodone 325 MG/10 MG TAB PO PRN ×4 (01:04→20:46)
[2017-10-16] MEDS: SODIUM CHLOR 0.9% 1000 ML INJ 1,000 ML IV SCH ×2 (04:10→21:29)
[2017-10-16] MEDS: LEVOTHYROXINE SODIUM 100 MCG TAB PO SCH (06:37)
[2017-10-16] MEDS: ISOSORBIDE MONONITRATE 60 MG CR TAB (IMDUR) PO SCH (06:37)
[2017-10-16] MEDS: HEPARIN SODIUM - SQ 10,000 UNITS/ML VIAL SQ SCH ×3 (06:38→20:47)
[2017-10-16] MEDS: CLOPIDOGREL 75 MG TAB PO SCH (08:09)
[2017-10-16] MEDS: FUROSEMIDE 20 MG TAB PO SCH (08:09)
[2017-10-16] MEDS: ASPIRIN EC 81 MG TABEC PO SCH (08:09)
[2017-10-16] MEDS: CALCIUM CARBONATE 500 MG CHEWABLE TAB CHEW SCH ×2 (08:09→20:45)
[2017-10-16] MEDS: CARVEDILOL 6.25 MG TAB PO SCH ×2 (08:09→21:00)
[2017-10-16] MEDS: INSULIN DETEMIR 100 UNITS/ML VIAL SQ SCH ×2 (08:09→20:47)
[2017-10-16] MEDS: PANTOPRAZOLE SOD 40 MG DELAYED RELEASE TAB PO SCH ×2 (08:11→20:45)
[2017-10-16] MEDS: INSULIN ASPART SUPPLEMENTAL SCALE SQ SCH ×4 (08:20→20:47)
[2017-10-16] MEDS: BUDESONIDE-FORMOTEROL 160/4.5 MCG INHALER INH SCH ×2 (08:21→20:48)
[2017-10-16] MEDS: SODIUM CHLORIDE 0.9% FLUSH 10 ML FLUSH IV FLUSH SCH ×2 (08:22→20:49)
[2017-10-16] MEDS: PREGABALIN 100 MG CAP PO SCH ×3 (08:29→18:02)
[2017-10-16 12:23] LABS: BICARBONATE 24.6 MEQ/L (21.0-32.0); CALCIUM 8.1 MG/DL (8.5-10.1); CREATININE 1.61 MG/DL (0.60-1.30)
[2017-10-16] MEDS: FERROUS SULFATE 325 MG (65 MG ELEMENTAL IRON) TAB PO SCH ×2 (12:54→18:02)
--- NOTE | 2017-10-16 13:21 | HHI.PR ---
Subjective Remarks swallowing better- much decreased reflux symptoms' no pain complains Objective Vitals Vital Signs Date Time Temp Pulse Resp B/P (MAP) Pulse Ox O2 Delivery O2 Flow Rate FiO2 10/16/17 12:02 97.4 80 18 104/66 (79) 95 10/16/17 11:56 78 10/16/17 09:29 18 10/16/17 08:02 97.6 79 18 101/64 (76) 94 10/16/17 08:00 Room Air 10/16/17 08:00 80 10/16/17 07:37 18 10/16/17 04:00 Room Air 10/16/17 04:00 96.1 77 20 104/58 (73) 99 10/16/17 03:56 79 10/16/17 00:33 80 10/16/17 00:00 97.8 82 19 102/65 (77) 99 10/16/17 00:00 Room Air 10/15/17 20:12 78 10/15/17 20:00 Room Air 10/15/17 20:00 97.2 80 19 96/64 (75) 100 10/15/17 16:00 97.8 80 16 107/67 (80) 98 I/O 10/15/17 10/15/17 10/15/17 10/16/17 10/16/17 10/16/17 07:00 15:00 23:00 07:00 15:00 23:00 Intake Total 716 ml 500 ml 600 ml 240 ml Output Total 0 ml 650 ml 200 ml Balance 716 ml 500 ml -50 ml 40 ml Intake Oral 716 ml 600 ml 240 ml IV Total 500 ml Output Urine Total 0 ml 650 ml 200 ml # Voids 2 # Bowel Movements 1 0 Result Diagram: 10/15/17 0840 10/16/17 1122 Imaging Last Impressions Upper GI Series 10/15/17 0000 Signed Impressions: Service Date/Time: Sunday, October 15, 2017 15:22 - CONCLUSION: 1. Multiple episodes of gastroesophageal reflux were noted during the exam without evidence of hiatus hernia. 2. Multiple intraluminal filling defects in the stomach, possible bezoar, precludes evaluation of mucosal abnormalities of the stomach. 3. No evidence of gastric outlet obstruction. Ananth Msesina MD Lower Extremity Ultrasound 10/08/17 0000 Signed Impressions: Service Date/Time: Sunday, October 08, 2017 13:55 - CONCLUSION: 1. No evidence of deep venous thrombosis. 2. Benign cystic structure in the anterior left upper thigh measuring up to 2 cm. Chris Vital MD Chest X-Ray 10/08/17 0000 Signed Impressions: Service Date/Time: Sunday, October 08, 2017 18:13 - CONCLUSION: 1. Basilar airspace disease and small effusions. Previous CABG. Channing Camara MD Objective Remarks awake and alert, oriented x 3 anicteric lungs- no rales regular rhythm abdomen soft, right LE- atrophic, multiple superficial ulceration- dry, no drainage mild erythema- continue to improve gradually LLE- with prosthesis A/P Assessment and Plan 62 years old Left lower extremity severe cellulitis with superficial wounds-gradually improving Continue on IV Vancomycin. ID ff Patient with leukocytosis and elevated lactic acid, improved Blood cx show no growth so far wound care team ff- daily Severe GERD symptoms History of Barretts s/p EGD dilatation in 2016 now states history of esophageal dilation in the past x 2 - started Protonix 40 mg po bid - per patient marked improvement - GI consulted- - advise on reflux measures History of Severe PVD s/p right AKA Followed by Dr. Balderas. Evaluated May [address] Herbert - not amenable to any open reconstruction, however, he would be a candidate for possible endovascular balloon angioplasty into the distal trifurcation and popliteal artery. Seen this admission- no plans for surgery Continue on Plavix CHF exacerbation/mitral valve regurgitation- underlying CMP- clinically not in failure CAD/hypertension/hyperlipidemia/hypothyroidism Chest x-ray significant for small effusions BNP 1558 Last echo 06/27/17 with EF 35-40% Patient's previous admission revealed he is not a candidate for mitral valve replacement Repeat echo pending Strict I&Os Continue supplemental oxygen to maintain O2 sats >92% Lisinopril 2.5 mg po daily- started 10/12- ff BMP- Hold change Lasix to once daily RENE- stable, non oliguric- creatinine up again- poor po HYperkalemia avoid nephrotoxic agents - Shane was restarted 10/14 - HOld - start gentle hydration - hold lasix today, restart 20 mg po once daily in am if creatinine improves Diabetes mellitus- good reading s- some low readings- erratic due to poor po- per pt po better A1C from 08/2017- 8.5 Levemer 8 units bid DC prandial insulin 5u TIDAC for now and montior- keep on sliding scale Continue to monitor blood glucose and adjust insulin regimen accordingly Sliding scale insulin Hypothyroidism Continue home medications COPD, not in acute exacerbation Continue on Symbicort Duonebs prn Continue to monitor respiratory status Iron deficiency anemia stool guiace negative start ferrous sulfate 325 mg po bid on PPI FEN Heart healthy diabetic diet Electrolytes: Monitor and replete when necessary Heparin Discharge Planning home with home health nursing arrangements Nela Coyle MD Oct 16, 2017 13:21
--- NOTE | 2017-10-16 13:23 | HHI.GIFU ---
Subjective Remarks pt sitting on edge of bed. c/o of abd pain. (Leslie Rivera) Objective Vitals I&O Vital Signs Date Time Temp Pulse Resp B/P (MAP) Pulse Ox O2 Delivery O2 Flow Rate FiO2 10/16/17 12:02 97.4 80 18 104/66 (79) 95 10/16/17 11:56 78 10/16/17 09:29 18 10/16/17 08:02 97.6 79 18 101/64 (76) 94 10/16/17 08:00 Room Air 10/16/17 08:00 80 10/16/17 07:37 18 10/16/17 04:00 Room Air 10/16/17 04:00 96.1 77 20 104/58 (73) 99 10/16/17 03:56 79 10/16/17 00:33 80 10/16/17 00:00 97.8 82 19 102/65 (77) 99 10/16/17 00:00 Room Air 10/15/17 20:12 78 10/15/17 20:00 Room Air 10/15/17 20:00 97.2 80 19 96/64 (75) 100 10/15/17 16:00 97.8 80 16 107/67 (80) 98 I/O 10/15/17 10/15/17 10/15/17 10/16/17 10/16/17 10/16/17 07:00 15:00 23:00 07:00 15:00 23:00 Intake Total 716 ml 500 ml 600 ml 240 ml Output Total 0 ml 650 ml 200 ml Balance 716 ml 500 ml -50 ml 40 ml Intake Oral 716 ml 600 ml 240 ml IV Total 500 ml Output Urine Total 0 ml 650 ml 200 ml # Voids 2 # Bowel Movements 1 0 Laboratory Laboratory Tests Test 10/16/17 11:22 Blood Urea Nitrogen 39 Creatinine 1.61 Random Glucose 202 Calcium Level 8.1 Sodium Level 131 Potassium Level 4.5 Chloride Level 98 Carbon Dioxide Level 24.6 Anion Gap 8 Estimat Glomerular Filtration Rate 44 Date/Time Source Procedure Growth Status 10/08/17 18:40 Blood Peripheral Aerobic Blood Culture - Final NO GROWTH IN 5 DAYS Complete 10/08/17 18:40 Blood Peripheral Anaerobic Blood Culture - Final NO GROWTH IN 5 DAYS Complete 10/09/17 00:00 Stool Stool Stool Occult Blood (AARON) - Final HEMOCCULT NEGATIVE Complete Imaging Last Impressions Upper GI Series 10/15/17 0000 Signed Impressions: Service Date/Time: Sunday, October 15, 2017 15:22 - CONCLUSION: 1. Multiple episodes of gastroesophageal reflux were noted during the exam without evidence of hiatus hernia. 2. Multiple intraluminal filling defects in the stomach, possible bezoar, precludes evaluation of mucosal abnormalities of the stomach. 3. No evidence of gastric outlet obstruction. Ananth Messina MD Lower Extremity Ultrasound 10/08/17 0000 Signed Impressions: Service Date/Time: Sunday, October 08, 2017 13:55 - CONCLUSION: 1. No evidence of deep venous thrombosis. 2. Benign cystic structure in the anterior left upper thigh measuring up to 2 cm. Chris Vital MD Chest X-Ray 10/08/17 0000 Signed Impressions: Service Date/Time: Sunday, October 08, 2017 18:13 - CONCLUSION: 1. Basilar airspace disease and small effusions. Previous CABG. Channing Camara MD Physical Exam HEENT: PERRL; normocephalic; atraumatic; no jaundice. CHEST: diminished CARDIAC: RRR ABDOMEN: semifirm, distended, nontender; bowel sounds are present in all four quadrants. EXTREMITIES:right AKA, LLE + edema, erythema, weeping SKIN: Normal; no rash; no jaundice. COSMETIC SALES CONSULTANT: No focal deficits; alert and oriented times three. (Leslie Rivera [facility]) Assessment and Plan Plan Assessment: - Acid reflux, pt states fairly well controlled at home with Prilosec, has not been receiving that since admission and attributes his awful acid reflux while in the hospital to this. Was started on Protonix last night. EGD in November of last year done here consistent with severe esophagitis and pathology showing acute ulcerative esophagitis - Dysphagia- states for years, but has been getting worse, only with solids, denies dysphagia with liquids. - Epigastric pain described as a burning sensation that travels into his throat - Anemia- microcytic, iron, % sat, ferritin low. - CAD S/P CABG in 2004, severe PAD S/P R AKA and Dr. Balderas currently following and notes that no surgical option to improve blood flow to LLE, pt will need L AKA at some point. Pt continues to smoke almost a pack a day. Currently on Plavix, ASA, and Heparin. - Impaired renal function- GFR worsening since admission 10/16/17 UGI series showed gerd, mult intraluminal filling defects, poss bezoar, no GOO. pt wit continued abd pain. Plan: ALEXANDER Protonix consider EGD when ok to hold anticoag supportive care Pt has been seen and examined by myself and Dr. Austin and this note is written on his behalf (Leslie Rivera) Physician Comments Seen and examined with ARIC, still with abdominal pain and gerd. egd on hold till anticoagulation can be reversed. Add carafate liquid 1 gram po bid ac meals. (Lona Austin MD) Leslie Rivera Oct 16, 2017 13:23 Lnoa Austin MD Oct 16, 2017 14:54
[2017-10-16] MEDS: SUCRALFATE 1 GM/10 ML CUP PO SCH ×2 (17:00→20:45)
[2017-10-16] MEDS: ATORVASTATIN 80 MG TAB PO SCH (20:45)
[2017-10-16] MEDS: NORTRIPTYLINE HCL 25 MG CAP PO SCH (21:05)
[2017-10-17] VITALS (10 sets, daily range): BP systolic 101–118; BP diastolic 62–72; PULSE 72–79; RESP 14–18; TEMP 97–97.3; O2SAT 93–100
[2017-10-17] MEDS: ALUMINUM/MAGNESIUM/SIMETH 30 ML CUP PO SCH ×4 (01:55→18:01)
[2017-10-17] MEDS: ACETAMINOPHEN/HYDROcodone 325 MG/10 MG TAB PO PRN ×3 (04:11→22:24)
[2017-10-17] MEDS ORDERED: PHARMACY ORDERED LAB ONE (05:45)
[2017-10-17] MEDS: ISOSORBIDE MONONITRATE 60 MG CR TAB (IMDUR) PO SCH (05:54)
[2017-10-17] MEDS: LEVOTHYROXINE SODIUM 100 MCG TAB PO SCH (05:54)
[2017-10-17] MEDS: HEPARIN SODIUM - SQ 10,000 UNITS/ML VIAL SQ SCH ×2 (05:55→12:50)
[2017-10-17] MEDS: VANCOMYCIN 1,500 MG/NS 500 ML IV SCH ×2 (05:59)
[2017-10-17 07:13] LABS: BICARBONATE 20.7 MEQ/L (21.0-32.0); CALCIUM 7.1 MG/DL (8.5-10.1); CREATININE 1.44 MG/DL (0.60-1.30); VANCOMYCIN TROUGH 14.1 MCG/ML (5.0-10.0)
[2017-10-17 07:33] LABS: TOTAL PROTEIN 5.4 GM/DL (6.4-8.2)
[2017-10-17] MEDS: INSULIN ASPART SUPPLEMENTAL SCALE SQ SCH ×4 (08:00→21:00)
[2017-10-17] MEDS: SODIUM CHLORIDE 0.9% FLUSH 10 ML FLUSH IV FLUSH SCH ×2 (08:25→21:34)
[2017-10-17] MEDS: CARVEDILOL 6.25 MG TAB PO SCH ×2 (08:25→21:30)
[2017-10-17] MEDS: PREGABALIN 100 MG CAP PO SCH ×3 (08:26→18:01)
[2017-10-17] MEDS: CALCIUM CARBONATE 500 MG CHEWABLE TAB CHEW SCH ×2 (08:26→21:31)
[2017-10-17] MEDS: PANTOPRAZOLE SOD 40 MG DELAYED RELEASE TAB PO SCH ×2 (08:26→21:30)
[2017-10-17] MEDS: CLOPIDOGREL 75 MG TAB PO SCH (08:26)
[2017-10-17] MEDS: SUCRALFATE 1 GM/10 ML CUP PO SCH ×4 (08:27→21:30)
[2017-10-17] MEDS: INSULIN DETEMIR 100 UNITS/ML VIAL SQ SCH ×2 (08:27→21:00)
[2017-10-17] MEDS: ASPIRIN EC 81 MG TABEC PO SCH (08:27)
[2017-10-17] MEDS: BUDESONIDE-FORMOTEROL 160/4.5 MCG INHALER INH SCH ×2 (08:28→21:31)
[2017-10-17] MEDS ORDERED: FUROSEMIDE 20 MG TAB PO SCH (09:00)
[2017-10-17] MEDS: SODIUM CHLOR 0.9% 1000 ML INJ 1,000 ML IV SCH (12:07)
[2017-10-17] MEDS: FERROUS SULFATE 325 MG (65 MG ELEMENTAL IRON) TAB PO SCH ×2 (12:50→16:55)
--- NOTE | 2017-10-17 15:09 | HHI.GIFU ---
Subjective Remarks Pt sitting up on edge of bed. c/o he doesn't feel well. pain in RLQ and pain in RUQ. he feels dizzy when asked to breathe for lung auscultation. Continued burning sensation in abd. (Leslie Rivera) Objective Vitals I&O Vital Signs Date Time Temp Pulse Resp B/P (MAP) Pulse Ox O2 Delivery O2 Flow Rate FiO2 10/17/17 12:05 97.0 75 18 106/71 (83) 100 10/17/17 12:00 75 10/17/17 08:05 97.3 79 18 112/71 (85) 99 10/17/17 08:00 99 Room Air 10/17/17 07:49 79 10/17/17 04:00 97.2 78 18 117/72 (87) 100 10/17/17 04:00 78 10/17/17 00:00 77 10/16/17 23:30 97.8 78 18 109/67 (81) 100 10/16/17 20:00 75 10/16/17 20:00 Room Air 10/16/17 19:48 94.8 74 14 99/66 (77) 100 10/16/17 16:10 94.7 79 14 94/67 (76) 99 10/16/17 16:00 75 10/16/17 16:00 Room Air I/O 10/16/17 10/16/17 10/16/17 10/17/17 10/17/17 10/17/17 07:00 15:00 23:00 07:00 15:00 23:00 Intake Total 240 ml 1080 ml 940 ml 1400 ml Output Total 200 ml 1200 ml 325 ml Balance 40 ml -120 ml 615 ml 1400 ml Intake Oral 240 ml 380 ml 240 ml IV Total 700 ml 700 ml 1400 ml Output Urine Total 200 ml 1200 ml 325 ml # Bowel Movements 0 1 0 Laboratory Laboratory Tests Test 10/17/17 06:27 Blood Urea Nitrogen 39 Creatinine 1.44 Random Glucose 99 Total Protein 5.4 Calcium Level 7.1 Sodium Level 136 Potassium Level 4.8 Chloride Level 106 Carbon Dioxide Level 20.7 Anion Gap 9 Estimat Glomerular Filtration Rate 50 Protein Corrected Calcium 8.0 Vancomycin Level Trough 14.1 Date/Time Source Procedure Growth Status 10/08/17 18:40 Blood Peripheral Aerobic Blood Culture - Final NO GROWTH IN 5 DAYS Complete 3/26/18 18:40 Blood Peripheral Anaerobic Blood Culture - Final NO GROWTH IN 5 DAYS Complete 10/09/17 00:00 Stool Stool Stool Occult Blood (AARON) - Final HEMOCCULT NEGATIVE Complete Imaging Last Impressions Upper GI Series 10/15/17 0000 Signed Impressions: Service Date/Time: Sunday, October 15, 2017 15:22 - CONCLUSION: 1. Multiple episodes of gastroesophageal reflux were noted during the exam without evidence of hiatus hernia. 2. Multiple intraluminal filling defects in the stomach, possible bezoar, precludes evaluation of mucosal abnormalities of the stomach. 3. No evidence of gastric outlet obstruction. Ananth Messina MD Lower Extremity Ultrasound 10/08/17 0000 Signed Impressions: Service Date/Time: Sunday, October 08, 2017 13:55 - CONCLUSION: 1. No evidence of deep venous thrombosis. 2. Benign cystic structure in the anterior left upper thigh measuring up to 2 cm. Chris Vital MD Chest X-Ray 10/08/17 0000 Signed Impressions: Service Date/Time: Sunday, October 08, 2017 18:13 - CONCLUSION: 1. Basilar airspace disease and small effusions. Previous CABG. Channing Camara MD Physical Exam HEENT: PERRL; normocephalic; atraumatic; no jaundice. CHEST: diminished CARDIAC: RRR ABDOMEN: semifirm, distended, nontender; bowel sounds are present in all four quadrants. ecchymosis RLQ EXTREMITIES:right AKA, LLE with dressing dry & intact SKIN: pale; no rash; no jaundice. BUSINESS PRACTICES SUPERVISOR: No focal deficits; alert and oriented times three. (Leslie Rivera [facility]) Assessment and Plan Plan Assessment: - Acid reflux, pt states fairly well controlled at home with Prilosec, has not been receiving that since admission and attributes his awful acid reflux while in the hospital to this. Was started on Protonix last night. EGD in November of last year done here consistent with severe esophagitis and pathology showing acute ulcerative esophagitis - Dysphagia- states for years, but has been getting worse, only with solids, denies dysphagia with liquids. - Epigastric pain described as a burning sensation that travels into his throat - Anemia- microcytic, iron, % sat, ferritin low. - CAD S/P CABG in 2004, severe PAD S/P R AKA and Dr. Balderas currently following and notes that no surgical option to improve blood flow to LLE, pt will need L AKA at some point. Pt continues to smoke almost a pack a day. Currently on Plavix, ASA, and Heparin. - Impaired renal function- GFR worsening since admission 10/16/17 UGI series showed gerd, mult intraluminal filling defects, poss bezoar, no GOO. pt wit continued abd pain. 10/17/17 c/o of continuing abd burning, RUQ pain, RLQ pain. he does have hematoma RLQ. c/o abd burning, unchanged. c/o dizziness. Plan: ALEXANDER Protonix carafate EGD when ok to hold anticoag rck LFTs supportive care Pt has been seen and examined by myself and Dr. Austin and this note is written on his behalf (Leslie Rivera) Physician Comments Seen and examined with HEALTH AND SAFETY COORDINATOR, continued abdominal pain. CT abd/pelvis ordered. (Lona Austin MD) Leslie Rivera Oct 17, 2017 15:09 Lona Austin MD Oct 17, 2017 16:53
--- NOTE | 2017-10-17 17:43 | HHI.PR ---
Subjective Remarks complains of abdominal discomfort poor po appetite states had a BM this am, + flatus Objective Vitals Vital Signs Date Time Temp Pulse Resp B/P (MAP) Pulse Ox O2 Delivery O2 Flow Rate FiO2 10/17/17 15:51 97.3 75 15 101/62 (75) 93 10/17/17 12:05 97.0 75 18 106/71 (83) 100 10/17/17 12:00 75 10/17/17 08:05 97.3 79 18 112/71 (85) 99 10/17/17 08:00 99 Room Air 10/17/17 07:49 79 10/17/17 04:00 97.2 78 18 117/72 (87) 100 10/17/17 04:00 78 10/17/17 00:00 77 10/16/17 23:30 97.8 78 18 109/67 (81) 100 10/16/17 20:00 75 10/16/17 20:00 Room Air 10/16/17 19:48 94.8 74 14 99/66 (77) 100 I/O 10/16/17 10/16/17 10/16/17 10/17/17 10/17/17 10/17/17 07:00 15:00 23:00 07:00 15:00 23:00 Intake Total 240 ml 1080 ml 940 ml 1400 ml Output Total 200 ml 1200 ml 325 ml Balance 40 ml -120 ml 615 ml 1400 ml Intake Oral 240 ml 380 ml 240 ml IV Total 700 ml 700 ml 1400 ml Output Urine Total 200 ml 1200 ml 325 ml # Bowel Movements 0 1 0 Result Diagram: 10/15/17 0840 10/17/17 0627 Imaging Last Impressions Upper GI Series 10/15/17 0000 Signed Impressions: Service Date/Time: Sunday, October 15, 2017 15:22 - CONCLUSION: 1. Multiple episodes of gastroesophageal reflux were noted during the exam without evidence of hiatus hernia. 2. Multiple intraluminal filling defects in the stomach, possible bezoar, precludes evaluation of mucosal abnormalities of the stomach. 3. No evidence of gastric outlet obstruction. Ananth Messina MD Lower Extremity Ultrasound 10/08/17 0000 Signed Impressions: Service Date/Time: Sunday, October 08, 2017 13:55 - CONCLUSION: 1. No evidence of deep venous thrombosis. 2. Benign cystic structure in the anterior left upper thigh measuring up to 2 cm. Chris Vital MD Chest X-Ray 10/08/17 0000 Signed Impressions: Service Date/Time: Sunday, October 08, 2017 18:13 - CONCLUSION: 1. Basilar airspace disease and small effusions. Previous CABG. Channing Camara MD Objective Remarks awake and alert, oriented x 3 anicteric lungs- no rales regular rhythm abdomen soft,, + bowel sounds, ecchymoses from heparin shot SQ, + mild tenderness on deep palpation of left lower quadrant right LE- atrophic, multiple superficial ulceration- dry, no drainage mild erythema- continue to improve gradually, cool to touch + pulse by doppler LLE- with prosthesis A/P Assessment and Plan 62 years old Left lower extremity severe cellulitis with superficial wounds-gradually improving Continue on IV Vancomycin. ID ff Patient with leukocytosis and elevated lactic acid, improved Blood cx show no growth so far wound care team ff- daily Severe GERD symptoms History of Barretts s/p EGD dilatation in 2016 history of esophageal dilation in the past x 2 - started Protonix 40 mg po bid, sucralfate - per patient - - work up in progress- imaging studies ordered by GI - will go ahead and hold ASA/Plavix and heparin SQ today- possible EGD - d/w Dr. Austin possible macho. - NPO post midnight- History of Severe PVD s/p right AKA Followed by Dr. Balderas. Evaluated May [address] Herbert - not amenable to any open reconstruction, however, he would be a candidate for possible endovascular balloon angioplasty into the distal trifurcation and popliteal artery. Seen this admission- no plans for surgery on Plavix CHF exacerbation/mitral valve regurgitation- underlying CMP- EF 25% clinically not in failure CAD/hypertension/hyperlipidemia Chest x-ray significant for small effusions Patient's previous admission revealed he is not a candidate for mitral valve replacement Strict I&Os Continue supplemental oxygen to maintain O2 sats >92% Lisinopril 2.5 mg po daily- started 10/12- ff BMP- Hold for now till creatinine stabilizes restarted on on Lasix to 20 mg daily if creatinine continue to stabilize- restart Lisinorpil at 2.5 mg daily RENE- stable, non oliguric- creatinine trended down HYperkalemia- resolved avoid nephrotoxic agents - Hold HUMBLE - Lasix 20 mg po daily - ff BMP Diabetes mellitus- good readings- some low readings- erratic due to poor po- per pt po intake slightly improving A1C from 08/2017- 8.5 Levemer 8 units bid DC scheduled prandial insulin 5u TIDAC and montior- keep on sliding scale Continue to monitor blood glucose and adjust insulin regimen accordingly Sliding scale insulin Hypothyroidism - synthroid 100 mcg po daily COPD, not in acute exacerbation Continue on Symbicort Duonebs prn Continue to monitor respiratory status Iron deficiency anemia stool guiace negative ferrous sulfate 325 mg po bid on PPI FEN Heart healthy diabetic diet Electrolytes: Monitor and replete when necessary Heparin Nela Coyle MD Oct 17, 2017 17:43
[2017-10-17] MEDS ORDERED: DIATRIZOATE MEGLUM/DIATRIZOATE SOD 9 ML CUP PO ONE (17:45)
[2017-10-17] MEDS ORDERED: IOHEXOL 350 MG/ML 10 ML VIAL (for RAD DIAG) IVCONTRAST ONE (21:10)
[2017-10-17] MEDS: ATORVASTATIN 80 MG TAB PO SCH (21:30)
[2017-10-17] MEDS: NORTRIPTYLINE HCL 25 MG CAP PO SCH (21:30)
[2017-10-18] VITALS (10 sets, daily range): BP systolic 111–127; BP diastolic 64–89; PULSE 68–74; RESP 13–20; TEMP 97.3–98.4; O2SAT 95–98
[2017-10-18] MEDS: ALUMINUM/MAGNESIUM/SIMETH 30 ML CUP PO SCH ×4 (01:51→18:31)
[2017-10-18] MEDS: LEVOTHYROXINE SODIUM 100 MCG TAB PO SCH (05:34)
[2017-10-18] MEDS: ISOSORBIDE MONONITRATE 60 MG CR TAB (IMDUR) PO SCH (05:34)
[2017-10-18] MEDS: ACETAMINOPHEN/HYDROcodone 325 MG/10 MG TAB PO PRN ×2 (05:35→18:32)
[2017-10-18] MEDS: INSULIN ASPART SUPPLEMENTAL SCALE SQ SCH ×4 (08:00→23:05)
[2017-10-18] MEDS: INSULIN DETEMIR 100 UNITS/ML VIAL SQ SCH ×2 (08:35→23:05)
[2017-10-18] MEDS: PANTOPRAZOLE SOD 40 MG DELAYED RELEASE TAB PO SCH ×2 (09:41→21:04)
[2017-10-18] MEDS: PREGABALIN 100 MG CAP PO SCH ×3 (09:41→18:00)
[2017-10-18] MEDS: CARVEDILOL 6.25 MG TAB PO SCH ×2 (09:41→21:04)
[2017-10-18] MEDS: SUCRALFATE 1 GM/10 ML CUP PO SCH ×4 (09:41→21:05)
[2017-10-18] MEDS: SODIUM CHLORIDE 0.9% FLUSH 10 ML FLUSH IV FLUSH SCH ×2 (09:42→21:05)
[2017-10-18] MEDS: FUROSEMIDE 20 MG TAB PO SCH (09:42)
[2017-10-18] MEDS: CALCIUM CARBONATE 500 MG CHEWABLE TAB CHEW SCH ×2 (09:42→21:04)
[2017-10-18] MEDS: BUDESONIDE-FORMOTEROL 160/4.5 MCG INHALER INH SCH ×2 (09:42→21:05)
[2017-10-18 12:09] LABS: AUTOMATED NEUTROPHIL # 7.9 TH/MM3 (1.8-7.7); BASOPHIL # 0.1 TH/MM3 (0-0.2); BASOPHIL % 1.1 % (0.0-2.0); EOSINOPHIL # 0.1 TH/MM3 (0-0.4); EOSINOPHIL % 0.7 % (0.0-4.0); HEMATOCRIT 29.9 % (39.0-51.0); HEMOGLOBIN 9.3 GM/DL (13.0-17.0); LYMPH % 21.3 % (9.0-44.0); LYMPHOCYTE # 2.4 TH/MM3 (1.0-4.8); MEAN CORPUSCULAR HEMOGLOBIN 22.1 PG (27.0-34.0); MEAN CORPUSCULAR HGB CONC 31.1 % (32.0-36.0); MEAN PLATELET VOLUME 11.8 FL (7.0-11.0); MONOCYTE # 0.9 TH/MM3 (0-0.9); NEUT % 68.9 % (16.0-70.0); PLATELET COUNT 156 TH/MM3 (150-450); RED CELL DISTRIBUTION WIDTH 19.3 % (11.6-17.2); WHITE BLOOD COUNT 11.5 TH/MM3 (4.0-11.0)
[2017-10-18] MEDS: FERROUS SULFATE 325 MG (65 MG ELEMENTAL IRON) TAB PO SCH ×2 (12:17→18:32)
[2017-10-18 12:39] LABS: ALBUMIN 3.1 GM/DL (3.4-5.0); CALCIUM 7.8 MG/DL (8.5-10.1); CREATININE 1.86 MG/DL (0.60-1.30); DIRECT BILIRUBIN ADULT 0.6 MG/DL (0.0-0.2); INDIRECT BILIRUBIN 0.6 MG/DL (0.0-0.8); TOTAL BILIRUBIN ADULT 1.2 MG/DL (0.2-1.0)
[2017-10-18 12:42] LABS: TOTAL PROTEIN 6.1 GM/DL (6.4-8.2)
--- NOTE | 2017-10-18 15:10 | HHI.GIFU ---
Subjective Remarks Resting in the bed with head of bed elevated Patient is pending repeat CT scan planned for this p.m. Right sided upper and lower quadrant pain mildly better Afebrile Nothing by mouth except meds continues Positive for some nausea Hemoglobin 9.3 (Nancy Ortiz) Objective Vitals I&O Vital Signs Date Time Temp Pulse Resp B/P (MAP) Pulse Ox O2 Delivery O2 Flow Rate FiO2 10/18/17 12:00 Room Air 10/18/17 11:49 73 10/18/17 11:29 97.8 74 13 121/67 (85) 97 10/18/17 08:00 97.3 74 14 118/64 (82) 96 10/18/17 08:00 Room Air 10/18/17 07:36 74 10/18/17 04:00 98.0 72 16 111/79 (90) 98 10/18/17 04:00 71 10/18/17 04:00 Room Air 10/18/17 00:00 71 10/18/17 00:00 98.4 68 18 127/89 (102) 95 10/18/17 00:00 Room Air 10/17/17 20:00 Room Air 10/17/17 20:00 72 10/17/17 19:49 97.0 73 14 118/67 (84) 100 10/17/17 15:53 76 10/17/17 15:51 97.3 75 15 101/62 (75) 93 I/O 10/17/17 10/17/17 10/17/17 10/18/17 10/18/17 10/18/17 07:00 15:00 23:00 07:00 15:00 23:00 Intake Total 940 ml 1400 ml 380 ml Output Total 325 ml 700 ml 300 ml Balance 615 ml 1400 ml -320 ml -300 ml Intake Oral 240 ml 380 ml IV Total 700 ml 1400 ml Output Urine Total 325 ml 700 ml 300 ml # Bowel Movements 0 1 3 Laboratory Laboratory Tests Test 10/18/17 10:26 White Blood Count 11.5 Red Blood Count 4.20 Hemoglobin 9.3 Hematocrit 29.9 Mean Corpuscular Volume 71.0 Mean Corpuscular Hemoglobin 22.1 Mean Corpuscular Hemoglobin Concent 31.1 Red Cell Distribution Width 19.3 Platelet Count 156 Mean Platelet Volume 11.8 Neutrophils (%) (Auto) 68.9 Lymphocytes (%) (Auto) 21.3 Monocytes (%) (Auto) 8.0 Eosinophils (%) (Auto) 0.7 Basophils (%) (Auto) 1.1 Neutrophils # (Auto) 7.9 Lymphocytes # (Auto) 2.4 Monocytes # (Auto) 0.9 Eosinophils # (Auto) 0.1 Basophils # (Auto) 0.1 CBC Comment DIFF FINAL Differential Comment Blood Urea Nitrogen 57 Creatinine 1.86 Random Glucose 171 Total Protein 6.1 Albumin 3.1 Calcium Level 7.8 Alkaline Phosphatase 293 Aspartate Amino Transf (AST/SGOT) 1236 Alanine Aminotransferase (ALT/SGPT) 1053 Total Bilirubin 1.2 Direct Bilirubin 0.6 Sodium Level 128 Potassium Level 5.7 Chloride Level 95 Carbon Dioxide Level 20.0 Anion Gap 13 Estimat Glomerular Filtration Rate 37 Indirect Bilirubin 0.6 Date/Time Source Procedure Growth Status 10/08/17 18:40 Blood Peripheral Aerobic Blood Culture - Final NO GROWTH IN 5 DAYS Complete 10/08/17 18:40 Blood Peripheral Anaerobic Blood Culture - Final NO GROWTH IN 5 DAYS Complete 10/09/17 00:00 Stool Stool Stool Occult Blood (AARON) - Final HEMOCCULT NEGATIVE Complete Imaging Last Impressions Upper GI Series 10/15/17 0000 Signed Impressions: Service Date/Time: Sunday, October 15, 2017 15:22 - CONCLUSION: 1. Multiple episodes of gastroesophageal reflux were noted during the exam without evidence of hiatus hernia. 2. Multiple intraluminal filling defects in the stomach, possible bezoar, precludes evaluation of mucosal abnormalities of the stomach. 3. No evidence of gastric outlet obstruction. Ananth Messina MD Lower Extremity Ultrasound 10/08/17 0000 Signed Impressions: Service Date/Time: Sunday, October 08, 2017 13:55 - CONCLUSION: 1. No evidence of deep venous thrombosis. 2. Benign cystic structure in the anterior left upper thigh measuring up to 2 cm. Chris Vital MD Chest X-Ray 10/08/17 0000 Signed Impressions: Service Date/Time: Sunday, October 08, 2017 18:13 - CONCLUSION: 1. Basilar airspace disease and small effusions. Previous CABG. Channing Camara MD Physical Exam HEENT: PERRL; normocephalic; atraumatic; no jaundice. Pale, frail CHEST: Mild diminished breath sounds at bases without obvious rhonchi or wheezing CARDIAC: RRR ABDOMEN: taut, mild distended, right upper quadrant and right lower quadrant discomfort to light palpation; bowel sounds are present in all four quadrants. ecchymosis RLQ EXTREMITIES:right AKA, LLE with dressing dry & intact, moves extremities with purpose SKIN: pale; mild bruising ecchymosis on upper extremities bilateral; no jaundice. DIRECTOR MEDICAL ECONOMICS: No focal deficits; alert and oriented times three. (Nancy Ortiz) Assessment and Plan Plan Assessment: - Acid reflux, pt states fairly well controlled at home with Prilosec, has not been receiving that since admission and attributes his awful acid reflux while in the hospital to this. Was started on Protonix last night. EGD in November of last year done here consistent with severe esophagitis and pathology showing acute ulcerative esophagitis - Dysphagia- states for years, but has been getting worse, only with solids, denies dysphagia with liquids. - Epigastric pain described as a burning sensation that travels into his throat - Anemia- microcytic, iron, % sat, ferritin low. - CAD S/P CABG in 2004, severe PAD S/P R AKA and Dr. Balderas currently following and notes that no surgical option to improve blood flow to LLE, pt will need L AKA at some point. Pt continues to smoke almost a pack a day. Currently on Plavix, ASA, and Heparin. - Impaired renal function- GFR worsening since admission 10/16/17 UGI series showed gerd, mult intraluminal filling defects, poss bezoar, no GOO. pt wit continued abd pain. 10/17/17 c/o of continuing abd burning, RUQ pain, RLQ pain. he does have hematoma RLQ. c/o abd burning, unchanged. c/o dizziness. 10/18/17, she is pending CAT scan to be done 24 hours without contrast from initial scan yesterday p.m. patient positive for some mild nausea but no vomiting. Appetite fair and has been decreased for the past 2 weeks. Patient is off Plavix for 2 days now. Mild improvement to right sided abdominal pain Plan: Nothing by mouth except for meds, after CT may have clear liquids tonight Protonix carafate Iron supplements Tums Plavix on hold 2 days, consider EGD and possible a.m. after CT scan results are seen Monitor for any acute bleeding, monitor labs special attention to hemoglobin supportive care Pt has been seen and examined by myself and Dr. Austin and this note is written on his behalf (Nancy Ortiz) Physician Comments Seen and examined with [facility], continued abdominal pain. CT pending. EGD tentatively scheduled for tomorrow. Plavix on hold. Discussed with Dr. Cedillo. (Lona Austin MD) Nancy Ortiz Oct 18, 2017 15:10 Lona Austin MD Oct 18, 2017 17:35
--- NOTE | 2017-10-18 17:31 | HHI.PR ---
Subjective Remarks Resting in bed no short of breath or chest pain No fever or chills Objective Vitals Vital Signs Date Time Temp Pulse Resp B/P (MAP) Pulse Ox O2 Delivery O2 Flow Rate FiO2 10/18/17 16:42 97.3 73 20 118/70 (86) 96 10/18/17 16:00 Room Air 10/18/17 12:00 Room Air 10/18/17 11:49 73 10/18/17 11:29 97.8 74 13 121/67 (85) 97 10/18/17 08:00 97.3 74 14 118/64 (82) 96 10/18/17 08:00 Room Air 10/18/17 07:36 74 10/18/17 04:00 98.0 72 16 111/79 (90) 98 10/18/17 04:00 71 10/18/17 04:00 Room Air 10/18/17 00:00 71 10/18/17 00:00 98.4 68 18 127/89 (102) 95 10/18/17 00:00 Room Air 10/17/17 20:00 Room Air 10/17/17 20:00 72 10/17/17 19:49 97.0 73 14 118/67 (84) 100 I/O 10/17/17 10/17/17 10/17/17 10/18/17 10/18/17 10/18/17 07:00 15:00 23:00 07:00 15:00 23:00 Intake Total 940 ml 1400 ml 380 ml Output Total 325 ml 700 ml 300 ml Balance 615 ml 1400 ml -320 ml -300 ml Intake Oral 240 ml 380 ml IV Total 700 ml 1400 ml Output Urine Total 325 ml 700 ml 300 ml # Bowel Movements 0 1 3 Result Diagram: 10/18/17 1026 10/18/17 1026 Objective Remarks GENERAL: This is a well-nourished, well-developed patient, in no apparent distress. SKIN: No rashes, warm and dry, scar of left scapular shoulder surgery in the past HEAD: Atraumatic. Normocephalic. EYES: Pupils equal round and reactive. Extraocular motions intact. No scleral icterus. ENT: Nose without bleeding, or drainage, Airway patent. NECK: Trachea midline. Supple CARDIOVASCULAR: Regular rate and rhythm without murmurs, gallops, or rubs. RESPIRATORY: Fair air entry bilaterally. No wheezes, rales, or rhonchi. GASTROINTESTINAL: Abdomen soft, non-tender, nondistended. Positive bowel sounds MUSCULOSKELETAL: Right AKA with prosthesis, lower extremity cellulitis and gauze NEUROLOGICAL: Awake and alert. Moves all extremity. Normal speech.no focal neurological deficit A/P Assessment and Plan 62 years old Left lower extremity severe cellulitis with superficial wounds-gradually improving Continue on IV Vancomycin. ID ff Patient with leukocytosis and elevated lactic acid, improved Blood cx show no growth so far wound care team ff- daily Severe GERD symptoms acute liver failure inc ast/alt >> GI ff History of Barretts s/p EGD dilatation in 2016 history of esophageal dilation in the past x 2 - started Protonix 40 mg po bid, sucralfate - per patient - -plan for EGD today 10/18 by GI - hold ASA/Plavix and heparin SQ today- History of Severe PVD s/p right AKA Followed by Dr. Balderas. Evaluated May [address] Herbert - not amenable to any open reconstruction, however, he would be a candidate for possible endovascular balloon angioplasty into the distal trifurcation and popliteal artery. Seen this admission- no plans for surgery on Plavix CHF exacerbation/mitral valve regurgitation- underlying CMP- EF 25% clinically not in failure CAD/hypertension/hyperlipidemia Chest x-ray significant for small effusions Patient's previous admission revealed he is not a candidate for mitral valve replacement Strict I&Os Continue supplemental oxygen to maintain O2 sats >92% Lisinopril 2.5 mg po daily- started 10/12- BMP- Hold for now till creatinine stabilizes restarted on on Lasix to 20 mg daily if creatinine continue to stabilize- restart Lisinorpil at 2.5 mg daily RENE- stable, non oliguric- creatinine trended down HYperkalemia- resolved avoid nephrotoxic agents - Hold HUMBLE - Lasix 20 mg po daily - ff BMP Diabetes mellitus- good readings- some low readings- erratic due to poor po- per pt po intake slightly improving A1C from 08/2017- 8.5 Levemir, sliding scale, will add preprandial as tolerated Hypothyroidism - synthroid 100 mcg po daily COPD, not in acute exacerbation Continue on Symbicort Duonebs prn Continue to monitor respiratory status Iron deficiency anemia stool guiace negative ferrous sulfate 325 mg po bid on PPI Discharge Planning Pending clinical improvement Brianna Sierra MD Oct 18, 2017 17:31
[2017-10-18] MEDS: NORTRIPTYLINE HCL 25 MG CAP PO SCH (21:04)
[2017-10-18] MEDS: ATORVASTATIN 80 MG TAB PO SCH (21:05)
[2017-10-19] VITALS (12 sets, daily range): BP systolic 81–104; BP diastolic 55–63; PULSE 63–71; RESP 12–19; TEMP 95.5–98.2; O2SAT 74–100
[2017-10-19] MEDS: ACETAMINOPHEN/HYDROcodone 325 MG/10 MG TAB PO PRN (00:52)
[2017-10-19] MEDS: ALUMINUM/MAGNESIUM/SIMETH 30 ML CUP PO SCH ×4 (01:00→19:00)
[2017-10-19] MEDS ORDERED: CHLORHEXIDINE GLUCONATE 2 % 1 PACK (2 CLOTHS) TOPICAL PRN (04:00)
[2017-10-19] MEDS ORDERED: LACTATED RINGER'S 1000 ML IV PRN (04:00)
[2017-10-19] MEDS ORDERED: POVIDONE IODINE 5% (ANTISEPSIS KIT) 4 APPLICATIONS EACH NARE PRN (04:00)
[2017-10-19] MEDS ORDERED: SODIUM CHLORID 0.9% 500 ML IV PRN (04:00)
[2017-10-19] MEDS: VANCOMYCIN 1,500 MG/NS 500 ML IV SCH ×2 (05:15)
[2017-10-19] MEDS: LEVOTHYROXINE SODIUM 100 MCG TAB PO SCH (05:15)
[2017-10-19] MEDS: ISOSORBIDE MONONITRATE 60 MG CR TAB (IMDUR) PO SCH (06:32)
[2017-10-19] MEDS: SODIUM CHLORIDE 0.9% FLUSH 10 ML FLUSH IV FLUSH SCH ×2 (07:15→21:29)
[2017-10-19] MEDS: INSULIN ASPART SUPPLEMENTAL SCALE SQ SCH ×4 (08:00→21:00)
[2017-10-19] MEDS: FUROSEMIDE 20 MG TAB PO SCH (08:42)
[2017-10-19] MEDS: PANTOPRAZOLE SOD 40 MG DELAYED RELEASE TAB PO SCH ×2 (08:42→21:00)
[2017-10-19] MEDS: CALCIUM CARBONATE 500 MG CHEWABLE TAB CHEW SCH ×2 (08:42→21:00)
[2017-10-19] MEDS: BUDESONIDE-FORMOTEROL 160/4.5 MCG INHALER INH SCH ×2 (08:43→21:00)
[2017-10-19] MEDS: SUCRALFATE 1 GM/10 ML CUP PO SCH ×3 (08:43→21:00)
[2017-10-19] MEDS: PREGABALIN 100 MG CAP PO SCH (08:43)
[2017-10-19] MEDS: CARVEDILOL 6.25 MG TAB PO SCH (08:43)
[2017-10-19] MEDS: INSULIN DETEMIR 100 UNITS/ML VIAL SQ SCH ×2 (08:44→21:00)
--- NOTE | 2017-10-19 10:22 | GIPROC ---
[facility] [address] [facility]. [facility], [address] EGD PROCEDURE REPORT EXAM DATE: 10/19/2017 PATIENT NAME: Ezio Aragon MR #: [id number] BIRTHDATE: 1955 ATTENDING: Lona Austin MD ORDER #: [id number] SENIOR DIRECTOR OF STRATEGY: Atiya Collado RN STATUS: inpatient INDICATIONS: The patient is a 62 yr old male here for an EGD due to iron deficiency anemia and epigastric abdominal pain PROCEDURE PERFORMED: EGD, diagnostic MEDICATIONS: None and Per Anesthesia. TOPICAL ANESTHETIC: CONSENT: The patient understands the risks and benefits of the procedure and understands that these risks include, but are not limited to: sedation, allergic reaction, infection, perforation and/or bleeding. Alternative means of evaluation and treatment include, among others: physical exam, x-rays, and/or surgical intervention. The patient elects to proceed with this endoscopic procedure. medical equipment was checked for proper function. Hand hygiene and appropriate measures for infection prevention was taken. After the risks, benefits and alternatives of the procedure were thoroughly explained, Informed consent was verified, confirmed and timeout was successfully executed by the treatment team. The patient was anesthetized with topical anesthesia and the [employer] [id number] endoscope was introduced through the mouth and advanced to the stomach antrum. Retroflexed views revealed no abnormalities The gastroscope was then slowly withdrawn and removed. ESOPHAGUS: There was LA Class A esophagitis noted. STOMACH: There was a large amount of residual food seen in the gastric body and gastric antrum. Due to the residual food, complete mucosal examination could not be performed. Based on this, I suspect the patient has some level of gastroparesis. ADVERSE EVENTS: There were no complications. IMPRESSIONS: 1. There was LA Class A esophagitis noted 2. Food residue in the gastric body and gastric antrum 3. Retroflexed views revealed no abnormalities RECOMMENDATIONS: 1. Anti-reflux regimen 2. Continue PPI 3. Xray: Gastric Emptying Scan 4. Xray: CT ABD W/CONTRAST 5. Xray: CT PELVIS W/CONTRAST PATIENT CONDITION: stable DISPOSITION: Inpatient REPEAT EXAM: Return 3 days EGD Lona Austin MD eSigned: Lona Austin MD 10/19/2017 10:22 AM cc: PATIENT NAME: Ezio Aragon MR#: [id number]
[2017-10-19] MEDS ORDERED: DO NOT ADM ANY ANTICOAGULANT DRUGS PRN (10:25)
[2017-10-19] MEDS ORDERED: ePHEDrine/NS 25 MG/5 ML SYRINGE IV ONE (12:00)
[2017-10-19] MEDS ORDERED: LIDOCAINE HCL 1% PF 5 ML SYRINGE OTHER ONE (12:00)
[2017-10-19] MEDS ORDERED: PROPOFOL 200 MG/20 ML AMP IV ONE (12:00)
[2017-10-19] MEDS ORDERED: PHENYLEPH/NS 1000 MCG/10 ML SYR IV ONE (12:00)
[2017-10-19] MEDS ORDERED: SODIUM CHLORID 0.9% 500 ML INJ 500 ML IV ONE (12:15)
[2017-10-19 12:47] LABS: BASOPHIL # 0.1 TH/MM3 (0-0.2); BASOPHIL % 0.8 % (0.0-2.0); EOSINOPHIL # 0.1 TH/MM3 (0-0.4); EOSINOPHIL % 0.7 % (0.0-4.0); HEMATOCRIT 26.7 % (39.0-51.0); HEMOGLOBIN 8.4 GM/DL (13.0-17.0); LYMPH % 15.1 % (9.0-44.0); MEAN CELL VOLUME 71.4 FL (80.0-100.0); MEAN CORPUSCULAR HEMOGLOBIN 22.4 PG (27.0-34.0); MEAN CORPUSCULAR HGB CONC 31.4 % (32.0-36.0); MEAN PLATELET VOLUME 11.5 FL (7.0-11.0); MONO % 7.6 % (0.0-8.0); NEUT % 75.8 % (16.0-70.0); PLATELET COUNT 143 TH/MM3 (150-450); RED BLOOD COUNT 3.75 MIL/MM3 (4.50-5.90); RED CELL DISTRIBUTION WIDTH 19.1 % (11.6-17.2); WHITE BLOOD COUNT 13.1 TH/MM3 (4.0-11.0)
--- NOTE | 2017-10-19 12:48 | HHI.GIFU ---
GI Follow-up Note Consult Follow-up Subjective: Patient laying in bed comfortably, no new complaints except drowsy and fatigued Objective: PHYSICAL EXAMINATION: Vitals signs stable No fever HEENT: Pupils round and reactive to light; normocephalic; atraumatic; no jaundice. Throat is clear. NECK: Neck is supple, no JVD, no lymphadenopathy. CHEST: Chest is clear to auscultation and percussion. CARDIAC: Regular rate and rhythm with no murmur gallop or rubs. ABDOMEN: Soft, nondistended, nontender; no hepatosplenomegaly; bowel sounds are present in all four quadrants. EXTREMITIES: No clubbing, cyanosis, or edema. SKIN: Normal; no rash; no jaundice. ACTUARIAL INTERNSHIP: No focal deficits; alert and oriented times three. Available Data (labs, X- Rays, Procedues) : Last Impressions Upper GI Series 10/15/17 0000 Signed Impressions: Service Date/Time: Sunday, October 15, 2017 15:22 - CONCLUSION: 1. Multiple episodes of gastroesophageal reflux were noted during the exam without evidence of hiatus hernia. 2. Multiple intraluminal filling defects in the stomach, possible bezoar, precludes evaluation of mucosal abnormalities of the stomach. 3. No evidence of gastric outlet obstruction. Ananth Messina MD Lower Extremity Ultrasound 10/08/17 0000 Signed Impressions: Service Date/Time: Sunday, October 08, 2017 13:55 - CONCLUSION: 1. No evidence of deep venous thrombosis. 2. Benign cystic structure in the anterior left upper thigh measuring up to 2 cm. Chris Vital MD Chest X-Ray 10/08/17 0000 Signed Impressions: Service Date/Time: Sunday, October 08, 2017 18:13 - CONCLUSION: 1. Basilar airspace disease and small effusions. Previous CABG. Channing Camara MD Laboratory Tests Test 10/18/17 10:26 10/19/17 11:50 10/19/17 12:37 White Blood Count 11.5 TH/MM3 Red Blood Count 4.20 MIL/MM3 Hemoglobin 9.3 GM/DL Hematocrit 29.9 % Mean Corpuscular Volume 71.0 FL Mean Corpuscular Hemoglobin 22.1 PG Mean Corpuscular Hemoglobin Concent 31.1 % Red Cell Distribution Width 19.3 % Platelet Count 156 TH/MM3 Mean Platelet Volume 11.8 FL Neutrophils (%) (Auto) 68.9 % Lymphocytes (%) (Auto) 21.3 % Monocytes (%) (Auto) 8.0 % Eosinophils (%) (Auto) 0.7 % Basophils (%) (Auto) 1.1 % Neutrophils # (Auto) 7.9 TH/MM3 Lymphocytes # (Auto) 2.4 TH/MM3 Monocytes # (Auto) 0.9 TH/MM3 Eosinophils # (Auto) 0.1 TH/MM3 Basophils # (Auto) 0.1 TH/MM3 CBC Comment DIFF FINAL Differential Comment Blood Urea Nitrogen 57 MG/DL Creatinine 1.86 MG/DL Random Glucose 171 MG/DL Total Protein 6.1 GM/DL Albumin 3.1 GM/DL Calcium Level 7.8 MG/DL Alkaline Phosphatase 293 U/L Aspartate Amino Transf (AST/SGOT) 1236 U/L Alanine Aminotransferase (ALT/SGPT) 1053 U/L Total Bilirubin 1.2 MG/DL Direct Bilirubin 0.6 MG/DL Sodium Level 128 MEQ/L Potassium Level 5.7 MEQ/L Chloride Level 95 MEQ/L Carbon Dioxide Level 20.0 MEQ/L Anion Gap 13 MEQ/L Estimat Glomerular Filtration Rate 37 ML/MIN Indirect Bilirubin 0.6 MG/DL Blood Gas Puncture Site RT BRACHIAL Blood Gas Patient Temperature 98.6 Venous Blood pH 7.35 Venous Blood Partial Pressure CO2 39 mmHg Venous Blood Partial Pressure O2 14 mmHg Venous Blood HCO3 21 mmol/L Venous Blood Oxygen Saturation 8 % Venous Blood Oxygen Content 1.0 Vol % Venous Blood Base Excess -3.9 mmol/L Oxygen Delivery Device NASAL CANNULA Blood Gas Liter Flow 3 L/M Allergies Coded Allergies Type Severity Reaction Last Updated Verified No Known Allergies 10/08/17 No Active Scripts Medications Dose Route/Sig Max Daily Dose Days Date Category Dose Instructions Hydrocodone-Acetamin 10-325 mg (Hydrocodone/Acetaminophen) 10 Mg-325 Mg Tablet 1 Tab PO QID 10/08/17 Reported Symbicort Inh (Budesonide/Formoterol Fumarate) 160-4.5 Mcg/Act Aero 1 Puff INH Q12HR 08/24/17 Rx Furosemide 20 Mg Tab 20 Mg PO BID@,18 08/24/17 Rx Isosorbide Mononitrate ER (Isosorbide Mononitrate) 60 Mg Tab 60 Mg PO DAILY@07 08/24/17 Rx Levemir Inj (Insulin Detemir) 1,000 unit/ 10 ML Vial 8 Units SQ BID 30 08/24/17 Rx Do not mix with any other Insulin. Novolog Inj (Insulin Aspart) 1,000 Unit/10 Ml Vial 1-9 Units SQ ACHS 08/24/17 Rx sugars less than 70,(0)units; sugars 150-199,(1) unit; sugars 200-249,(3) units; sugars 250-299,(5) units; sugars 300-349,(7) units; sugars greater than 349,(9) units. inform PCP if < 70 or > 400. Lisinopril 5 Mg Tab 5 Mg PO DAILY 08/24/17 Rx Atorvastatin (Atorvastatin Calcium) 80 Mg Tab 80 Mg PO HS 30 08/24/17 Rx Lyrica (Pregabalin) 100 Mg Cap 100 Mg PO TID 08/24/17 Rx Adult Aspirin EC Low Strength (Aspirin) 81 Mg Tabec 81 Mg PO DAILY 30 08/24/17 Rx Nortriptyline (Nortriptyline HCl) 75 Mg Cap 75 Mg PO HS 08/24/17 Rx Plavix (Clopidogrel Bisulfate) 75 Mg Tab 75 Mg PO DAILY 08/24/17 Rx Synthroid (Levothyroxine Sodium) 100 Mcg Tab 100 Mcg PO DAILY@06 08/24/17 Rx Carvedilol 6.25 Mg Tab 6.25 Mg PO BID 08/24/17 Rx B12 (Cyanocobalamin) 1,000 Mcg Tab 1,000 Mcg PO DAILY 08/24/17 Rx Epinephrine Inj 1 Mg/Ml (1 Ml) Inj 0.3 Mg IV PUSH ONCE PRN 07/03/17 Rx ASSESSMENT/PLAN: Pt brought to the OR for egd. BP in the 80's. Evaluated by Anesthesia Dr Brasher,, decision made to proceed with egd without sedation. Lidocaine sprayed into the back of the mouth and quick look egd done. See Egd report. After the procedure Dr. Sierra notified of patients low BP and possible sepsis. ID consulted and Patient transferred to [facility]. CT of abdomen ordered 2 days ago still pending. Increase in LFTs as a result of shock liver probably secondary to sepsis. Project Systems Engineer consult also requested. It was a pleasure seeing Ezio Aragon. Thank you for this consult. Entered by: Lona Aguiar MD Oct 19, 2017 12:48
[2017-10-19] MEDS ORDERED: MICAFUNGIN INJ 100 MG in SODIUM CHLORIDE 0.9% INJ 100 ML IV SCH (13:00)
[2017-10-19 13:13] LABS: ALBUMIN 2.7 GM/DL (3.4-5.0); BICARBONATE 20.6 MEQ/L (21.0-32.0); CALCIUM 7.2 MG/DL (8.5-10.1); CREATININE 2.11 MG/DL (0.60-1.30)
[2017-10-19] MEDS ORDERED: DIATRIZOATE MEGLUM/DIATRIZOATE SOD 9 ML CUP PO ONE (13:15)
[2017-10-19 13:28] LABS: CALCIUM-PROTEIN CORRECTED 8.1 MG/DL (8.5-10.1); TOTAL BILIRUBIN ADULT 1.1 MG/DL (0.2-1.0); TOTAL PROTEIN 5.4 GM/DL (6.4-8.2)
--- NOTE | 2017-10-19 13:28 | HHI.IDPN ---
Subjective Subjective Remarks Events noted Pt is hypotensive BP in 60-80/50 sp EGD LFTs in 1000s Cr is also up to 2.11 + leukocytosis Antibiotics vancomycin Allergies: Coded Allergies: No Known Allergies (Unverified , 10/08/17) Objective . Vital Signs Date Time Temp Pulse Resp B/P (MAP) Pulse Ox O2 Delivery O2 Flow Rate FiO2 10/19/17 12:07 94 Nasal Cannula 4.00 10/19/17 10:59 64 16 80/61 (67) 100 Nasal Cannula 2 10/19/17 10:56 66 16 85/58 (67) 100 Nasal Cannula 2 10/19/17 10:51 66 16 88/61 (70) 100 Nasal Cannula 2 10/19/17 10:50 64 16 76/55 (62) 100 Nasal Cannula 2 10/19/17 10:47 97.8 66 16 75/51 (59) 99 10/19/17 10:45 65 16 68/57 (61) 100 Nasal Cannula 2 10/19/17 10:41 97.8 68 16 75/51 (59) 100 Nasal Cannula 2 10/19/17 08:00 97.3 68 12 82/56 (65) 96 10/19/17 04:00 98.2 70 17 91/57 (68) 94 10/19/17 03:59 68 10/19/17 00:00 Room Air 10/19/17 00:00 97.2 66 18 104/63 (77) 94 10/18/17 23:53 69 10/18/17 20:00 97.5 74 18 117/73 (88) 97 10/18/17 19:00 Room Air 10/18/17 16:42 97.3 73 20 118/70 (86) 96 10/18/17 16:00 Room Air 10/18/17 15:53 73 . Laboratory Tests Test 10/18/17 10:26 10/19/17 12:37 White Blood Count 11.5 TH/MM3 13.1 TH/MM3 Red Blood Count 4.20 MIL/MM3 3.75 MIL/MM3 Hemoglobin 9.3 GM/DL 8.4 GM/DL Hematocrit 29.9 % 26.7 % Mean Corpuscular Volume 71.0 FL 71.4 FL Mean Corpuscular Hemoglobin 22.1 PG 22.4 PG Mean Corpuscular Hemoglobin Concent 31.1 % 31.4 % Red Cell Distribution Width 19.3 % 19.1 % Platelet Count 156 TH/MM3 143 TH/MM3 Mean Platelet Volume 11.8 FL 11.5 FL Neutrophils (%) (Auto) 68.9 % 75.8 % Lymphocytes (%) (Auto) 21.3 % 15.1 % Monocytes (%) (Auto) 8.0 % 7.6 % Eosinophils (%) (Auto) 0.7 % 0.7 % Basophils (%) (Auto) 1.1 % 0.8 % Neutrophils # (Auto) 7.9 TH/MM3 10.0 TH/MM3 Lymphocytes # (Auto) 2.4 TH/MM3 2.0 TH/MM3 Monocytes # (Auto) 0.9 TH/MM3 1.0 TH/MM3 Eosinophils # (Auto) 0.1 TH/MM3 0.1 TH/MM3 Basophils # (Auto) 0.1 TH/MM3 0.1 TH/MM3 CBC Comment DIFF FINAL DIFF FINAL Differential Comment Laboratory Tests Test 10/18/17 10:26 10/19/17 12:37 Blood Urea Nitrogen 57 MG/DL 61 MG/DL Creatinine 1.86 MG/DL 2.11 MG/DL Random Glucose 171 MG/DL 93 MG/DL Total Protein 6.1 GM/DL Albumin 3.1 GM/DL 2.7 GM/DL Calcium Level 7.8 MG/DL 7.2 MG/DL Alkaline Phosphatase 293 U/L Aspartate Amino Transf (AST/SGOT) 1236 U/L Alanine Aminotransferase (ALT/SGPT) 1053 U/L Total Bilirubin 1.2 MG/DL Direct Bilirubin 0.6 MG/DL Sodium Level 128 MEQ/L 130 MEQ/L Potassium Level 5.7 MEQ/L 5.3 MEQ/L Chloride Level 95 MEQ/L 98 MEQ/L Carbon Dioxide Level 20.0 MEQ/L 20.6 MEQ/L Anion Gap 13 MEQ/L 11 MEQ/L Estimat Glomerular Filtration Rate 37 ML/MIN 32 ML/MIN Indirect Bilirubin 0.6 MG/DL Lactic Acid Level 3.5 mmol/L Imaging Last Impressions Lower Extremity Ultrasound 10/08/17 0000 Signed Impressions: Service Date/Time: Sunday, October 08, 2017 13:55 - CONCLUSION: 1. No evidence of deep venous thrombosis. 2. Benign cystic structure in the anterior left upper thigh measuring up to 2 cm. hCris Vital MD Chest X-Ray 10/08/17 0000 Signed Impressions: Service Date/Time: Sunday, October 08, 2017 18:13 - CONCLUSION: 1. Basilar airspace disease and small effusions. Previous CABG. Channing Camara MD Physical Exam CONSTITUTIONAL/GENERAL: This is an adequately nourished patient, in no apparent distress. TUBES/LINES/DRAINS: SKIN: No jaundice, rashes, or lesions. . Skin temperature appropriate. Not diaphoretic. CONSTITUTIONAL/GENERAL: This is an adequately nourished patient, in no apparent distress. TUBES/LINES/DRAINS: SKIN: No jaundice, rashes, or lesions. . Skin temperature appropriate. Not diaphoretic. HEAD: Atraumatic. Normocephalic. EYES: Pupils equal and round and reactive. Extraocular motions intact. No scleral icterus. No injection or drainage. Fundi not examined. ENT: Hearing decreased (baseline). \ Nose without bleeding or purulent drainage. Oral mucosae extremely dry. Poor dentition NECK: Trachea midline. Supple, nontender. CARDIOVASCULAR: Regular rate and rhythm without murmurs, gallops, or rubs. No JVD. Peripheral pulses symmetric. Well healed sternotomy scar RESPIRATORY/CHEST: Symmetric, unlabored respirations. Clear to auscultation. Breath sounds equal bilaterally. No wheezes, rales, or rhonchi. GASTROINTESTINAL: Abdomen soft, non-tender, nondistended. No hepato-splenomegaly , or palpable masses. No guarding. Bowel sounds present. Well healed incisions from previous surgery MUSCULOSKELETAL: Extremities without clubbing, cyanosis, fairly tight edema 2 + Sp R AKA - well healed L LEfoot. cold to touch, + cyanotic No palpable pulses poorly healing multiple skin lesions abcence of skin appendages LYMPHATICS: No palpable cervical or supraclavicular adenopathy. NEUROLOGICAL: Awake and alert. Motor and sensory grossly within normal limits. Follows commands. Clear speech . Moves all extremities. PSYCHIATRIC: No obvious anxiety/depression. no apparent hallucinations or other psychotic thought process. Assessment & Plan Remarks PVD severe Cellulitis, mild and probably chronic in the settings of PVD Poorly controlled DM CHF exacerbation New issyue hypotension sepsis is suspected (leukocytosis, lactic acidosis) ? shock liver - cont vancomycin - start zosyn - start mycofungin STAT blood clx - CT A/P UA/C+S dw Brittany Anne RN, MD Oct 19, 2017 13:28
--- NOTE | 2017-10-19 13:33 | RADRPT ---
EXAM DATE/TIME: 10/19/2017 13:09 [facility] COMPARISON: CHEST SINGLE AP, October 08, 2017, 18:13. INDICATIONS : Short of breath. MEDICAL HISTORY : Diabetes mellitus type II. SURGICAL HISTORY : CABG. right above the knee amputation ENCOUNTER: Subsequent ACUITY: 4 - 6 days PAIN SCORE: 0/10 LOCATION: Bilateral chest FINDINGS: A single view of the chest demonstrates persistent bibasilar airspace disease with probable associate d effusions. There is interval worsening in right. Heart size is borderline prominent. Intact median sternotomy wires and findings of prior CABG. Osseous structures are intact. CONCLUSION: 1. Persistent bibasilar airspace disease and probable associated effusions. Interval worsening on the right. 2. Heart size is borderline prominent. Prior CABG. Tyler Lopez MD on October 19, 2017 at 13:28 Board Certified Radiologist. This report was verified electronically.
[2017-10-19] MEDS: PIPERACIL-TAZO 3.375 GM PREMIX 50 ML IV SCH ×2 (14:00→21:29)
[2017-10-19 14:17] LABS: INTERNATIONAL NORMALIZED RATIO 1.7 RATIO; PROTHROMBIN TIME - PATIENT 16.8 SEC (9.8-11.6)
--- NOTE | 2017-10-19 14:31 | ECHRPT ---
Indication: Pericardial effusion CONCLUSIONS Mildly dilated left ventricle. Wall thickness is measured at the upper limits of normal. The left ventricular systolic function is severely reduced with an estimated ejection fraction in th e range of 20-25%. There is abnormal septal motion consistent with an intraventricular conduction delay. The left atrial size is [id number]-ufltnees dilated. The interatrial septum bowed from left to right, consistent with increased left atrial pressure. Mild thickening of the mitral valve leaflets. Severe mitral valve regurgitation. Mild thickening of the tricuspid valve leaflets. There is moderate tricuspid regurgitation. The estimated pulmonary arterial pressure is 40.9 mmHg. A large left sided pleural effusion is noted. BP: / HR: Rhythm: Sinus MEASUREMENTS (Male / Female) Normal Values Technical Quality:Good DOPPLER TR Peak Velocity 278.0 cm/s TR Peak Gradient 30.9 mmHg Right Atrial Pressure 10.0 mmHg Pulmonary Artery Systolic Pressu 40.9 mmHg Right Ventricular Systolic Press 40.9 mmHg FINDINGS LEFT VENTRICLE Mildly dilated left ventricle. Wall thickness is measured at the upper limits of normal. The left ventricular systolic function is severely reduced with an estimated ejection fraction in th e range of 20-25%. There is abnormal septal motion consistent with an intraventricular conduction delay. RIGHT VENTRICLE Normal right ventricular size and systolic function. LEFT ATRIUM The left atrial size is rfkugstv-[id number] dilated. RIGHT ATRIUM The right atrial size is normal. ATRIAL SEPTUM The interatrial septum bowed from left to right, consistent with increased left atrial pressure. Normal atrial septal thickness without atrial level shunting by limited color doppler interrogation. AORTA The aortic root and proximal ascending aorta are normal in size on limited imaging. MITRAL VALVE Mild thickening of the mitral valve leaflets. Severe mitral valve regurgitation. AORTIC VALVE Trileaflet aortic valve. No aortic valve stenosis or regurgitation. TRICUSPID VALVE Mild thickening of the tricuspid valve leaflets. There is moderate tricuspid regurgitation. The estimated pulmonary arterial pressure is 40.9 mmHg. PULMONARY VALVE No pulmonary valve regurgitation or stenosis. VESSELS The inferior vena cava is normal in size. PERICARDIUM No pericardial effusion. A large left sided pleural effusion is noted. Bautista Rodriguez MD, FACC (Electronically Signed) Final Date:19 October 2017 14:30
--- NOTE | 2017-10-19 14:54 | PD.CONS ---
[facility] Service Critical Care Medicine Consult Requested By Dr. Sierra Reason for Consult Acute hypoxemic respiratory failure, hypotension, septic shock Primary Care Physician Unknown History of Present Illness This is a 62-year-old male well-known to [facility] after multiple admissions. Patient was admitted on 327 with complaints of left lower extremity edema and fatigue and weakness. The patient was noted to have a left lower lobe cellulitis and infectious disease was consulted. The patient had complaints of abdominal pain, GI was consulted and following. The patient was noted to become hypotensive within the last 24 hours prior to EGD, with complaints of moderate to severe abdominal pain. A CT had been ordered approximately 2 days ago, but not obtained. EGD report is pending. The patient was emergently transferred to [facility] [place], secondary to hypotension and acute hypoxemic respiratory failure patient was noted to be 88-90% on O2 at 4 L nasal cannula. Systolic blood pressure initially upon presentation was in the 80s. The patient received approximately 2 L of IV fluid prior to consultation. Upon my evaluation of the patient the patient was noted in stating he could not breathe, previous and previous imaging studies showed a pericardial effusion and a left pleural effusion. An ABG was obtained which revealed a pH of 7.35 but obvious diffusion defect with a venous PO2 of 15. A stat chest x-ray was performed which revealed a pneumonia process in the left pleural effusion. A stat echo was performed which showed no pericardial effusion but a large left pleural effusion. The patient was placed on high flow nasal cannula, antibiotics immediately provided, MAP ranged in the 70's. Consent was obtained for a bedside thoracentesis evaluation with ultrasound. Patient's medical history is significant for congestive heart failure with an ejection fraction of approximately 20-25%, COPD . Patient was recently admitted in July 2017 with pneumonia. Review of Systems ROS Limitations: Clinical Condition Past Family Social History Allergies: Coded Allergies: No Known Allergies (Unverified , 10/08/17) Past Medical History Severe mitral valve regurgitation, coronary artery disease, hypothyroidism, hypertension, hyperlipidemia, peripheral vascular disease, congestive heart failure, diabetes mellitus, degenerative disc disease, chronic pain syndrome Past Surgical History Right AKA, status post CABG in 2004, appendectomy, tonsillectomy Reported Medications Reviewed Active Ordered Medications Current Medications Medications (Trade) Dose Ordered Sig/Nuzhat Route Start Time Stop Time Status Last Admin (NS Flush) 2 ml UNSCH PRN IV FLUSH 10/08/17 21:30 10/09/17 18:01 (NS Flush) 2 ml BID IV FLUSH 10/09/17 09:00 10/19/17 07:15 (Tylenol) 650 mg Q4H PRN PO 10/08/17 21:30 (Compazine Supp) 25 mg Q12H PRN RECTAL 10/08/17 21:30 10/11/17 09:19 (Heparin Inj) 5,000 units Q8H SQ 10/08/17 22:00 Future Hold 10/17/17 12:50 (Narcan Inj) 0.4 mg UNSCH PRN IV PUSH 10/08/17 21:30 (D50w (Vial) Inj) 50 ml UNSCH PRN IV PUSH 10/08/17 21:45 10/14/17 19:00 (Glucagon Inj) 1 mg UNSCH PRN OTHER 10/08/17 21:45 (Ecotrin Ec) 81 mg DAILY PO 10/09/17 09:00 Future Hold 10/17/17 08:27 (Lipitor) 80 mg HS PO 10/09/17 21:00 10/18/17 21:05 (Symbicort 160-4.5 Mcg Inh) 1 puff Q12HR INH 10/09/17 09:00 10/19/17 08:43 (Coreg) 6.25 mg BID PO 10/09/17 09:00 10/19/17 08:43 (Plavix) 75 mg DAILY PO 10/09/17 09:00 Future Hold 10/17/17 08:26 (Imdur) 60 mg DAILY@07 PO 10/09/17 07:00 10/19/17 06:32 (Synthroid) 100 mcg DAILY@06 PO 10/09/17 06:00 10/19/17 05:15 (Pamelor) 75 mg HS PO 10/09/17 21:00 10/18/17 21:04 (Lyrica) 100 mg TID PO 10/09/17 09:00 10/19/17 08:43 ([place] 10-325 Mg) 1 tab Q6H PRN PO 10/09/17 00:45 10/19/17 00:52 Pharmacy Profile Note 0 ml @ 0 mls/hr UNSCH OTHER 10/09/17 02:30 (Duoneb Neb) 1 ampule Q4HR NEB PRN NEB 10/09/17 12:15 (Tums Chew) 500 mg Q12HR CHEW 10/09/17 21:00 10/19/17 08:42 (NovoLOG SUPPLEMENTAL SCALE) 1 ACHS SLIDING SCALE SQ 10/09/17 17:00 10/18/17 23:05 (Ferrous Sulfate) 325 mg BID@12,17 PO 10/13/17 12:00 10/18/17 18:32 (Pill Splitter) 1 ea UNSCH PRN OTHER 10/13/17 10:15 (Levemir Inj) 8 units BID SQ 10/14/17 21:00 10/18/17 23:05 (Protonix) 40 mg BID PO 10/14/17 21:00 10/19/17 08:42 (Mag-Al Plus Susp Liq) 30 ml Q6H PO 10/14/17 13:00 10/18/17 12:17 Vancomycin HCl 1500 mg/Sodium Chloride 515 ml @ 257.5 mls/ hr Q48H IV 10/17/17 06:00 10/19/17 05:15 (Carafate Liq) 1 gm ACHS PO 10/16/17 17:00 10/19/17 08:43 Miscellaneous Information SPECIFIC LAB TO BE DRAWN:VANCOMYCIN TROUGH DATE TO... ONCE ONCE .XX 10/21/17 05:45 10/21/17 05:46 (Lasix) 20 mg DAILY PO 10/18/17 09:00 10/19/17 08:42 Lactated Ringer's 1,000 ml @ 30 mls/hr Q24H PRN IV 10/19/17 04:00 10/22/17 03:59 10/19/17 09:12 Sodium Chloride 500 ml @ 30 mls/hr [id number] PRN IV 10/19/17 04:00 10/22/17 03:59 (Betadine 5% Antisepsis Kit) 1 applic FAILURE ANALYSIS ENGINEER PRN EACH NARE 10/19/17 04:00 10/22/17 03:59 (Chlorhexidine 2% Cloth) 3 pack FAILURE ANALYSIS ENGINEER PRN TOPICAL 10/19/17 04:00 10/22/17 03:59 Miscellaneous Information ALL NURSING DEPARTME... UNSCH PRN .XX 10/19/17 10:25 10/20/17 10:24 Piperacillin Sod/ Tazobactam Sod 50 ml @ 100 mls/hr Q6H IV 10/19/17 14:00 Micafungin Sodium 100 mg/Sodium Chloride 100 ml @ 100 mls/hr Q24H IV 10/19/17 13:00 Family History Unable to obtain 2/2 to patient's clinical condition Social History Tobacco use disorder, quit 1 year ago. Alcohol or illicit drug use. Physical Exam Vital Signs Vital Signs Date Time Temp Pulse Resp B/P (MAP) Pulse Ox O2 Delivery O2 Flow Rate FiO2 10/19/17 13:33 96 High Flow Nasal Cannula 25.00 80 10/19/17 12:07 94 Nasal Cannula 4.00 10/19/17 10:59 64 16 80/61 (67) 100 Nasal Cannula 2 10/19/17 10:56 66 16 85/58 (67) 100 Nasal Cannula 2 10/19/17 10:51 66 16 88/61 (70) 100 Nasal Cannula 2 10/19/17 10:50 64 16 76/55 (62) 100 Nasal Cannula 2 10/19/17 10:47 97.8 66 16 75/51 (59) 99 10/19/17 10:45 65 16 68/57 (61) 100 Nasal Cannula 2 10/19/17 10:41 97.8 68 16 75/51 (59) 100 Nasal Cannula 2 10/19/17 08:00 97.3 68 12 82/56 (65) 96 10/19/17 04:00 98.2 70 17 91/57 (68) 94 10/19/17 03:59 68 10/19/17 00:00 Room Air 10/19/17 00:00 97.2 66 18 104/63 (77) 94 10/18/17 23:53 69 10/18/17 20:00 97.5 74 18 117/73 (88) 97 10/18/17 19:00 Room Air 10/18/17 16:42 97.3 73 20 118/70 (86) 96 10/18/17 16:00 Room Air 10/18/17 15:53 73 Physical Exam GENERAL: This is a thin, chronically ill malnourished male looking older than stated age, in moderate SKIN: Warm and dry. Multiple ecchymotic bruising bilateral upper and lower extremities HEAD: Atraumatic. Normocephalic. EYES: Pupils equal and round. 3 mm and brisk no scleral icterus. No injection or drainage. ENT: No nasal bleeding or discharge. Mucous membranes pink and moist. NECK: Trachea midline. No JVD. CARDIOVASCULAR: Normal rate, regular rhythm. RESPIRATORY: No accessory muscle use. Clear to auscultation. Breath sounds equal bilaterally. GASTROINTESTINAL: Abdomen soft, non-tender, nondistended. No guarding. MUSCULOSKELETAL: Extremities without clubbing, cyanosis, or edema. Right AKA NEUROLOGICAL: Awake and alert. RASS 0. No gross focal/sensory deficits. Follows commands in all 4 extremities. Laboratory Laboratory Tests Test 10/19/17 11:50 10/19/17 12:37 10/19/17 12:38 10/19/17 13:50 Blood Gas Puncture Site RT BRACHIAL Blood Gas Patient Temperature 98.6 Venous Blood pH 7.35 Venous Blood Partial Pressure CO2 39 Venous Blood Partial Pressure O2 14 Venous Blood HCO3 21 Venous Blood Oxygen Saturation 8 Venous Blood Oxygen Content 1.0 Venous Blood Base Excess -3.9 Oxygen Delivery Device NASAL CANNULA Blood Gas Liter Flow 3 White Blood Count 13.1 Red Blood Count 3.75 Hemoglobin 8.4 Hematocrit 26.7 Mean Corpuscular Volume 71.4 Mean Corpuscular Hemoglobin 22.4 Mean Corpuscular Hemoglobin Concent 31.4 Red Cell Distribution Width 19.1 Platelet Count 143 Mean Platelet Volume 11.5 Neutrophils (%) (Auto) 75.8 Lymphocytes (%) (Auto) 15.1 Monocytes (%) (Auto) 7.6 Eosinophils (%) (Auto) 0.7 Basophils (%) (Auto) 0.8 Neutrophils # (Auto) 10.0 Lymphocytes # (Auto) 2.0 Monocytes # (Auto) 1.0 Eosinophils # (Auto) 0.1 Basophils # (Auto) 0.1 CBC Comment DIFF FINAL Differential Comment Blood Urea Nitrogen 61 Creatinine 2.11 Random Glucose 93 Total Protein 5.4 Albumin 2.7 Calcium Level 7.2 Alkaline Phosphatase 243 Aspartate Amino Transf (AST/SGOT) 1041 Alanine Aminotransferase (ALT/SGPT) 1087 Total Bilirubin 1.1 Sodium Level 130 Potassium Level 5.3 Chloride Level 98 Carbon Dioxide Level 20.6 Anion Gap 11 Estimat Glomerular Filtration Rate 32 Lactic Acid Level 3.5 Protein Corrected Calcium 8.1 B-Type Natriuretic Peptide 1321 Lipase 25 Prothrombin Time 16.8 Prothromb Time International Ratio 1.7 Date/Time Source Procedure Growth Status 10/19/17 13:37 Blood Peripheral Aerobic Blood Culture Pending Received 10/19/17 13:37 Blood Peripheral Anaerobic Blood Culture Pending Received 10/09/17 00:00 Stool Stool Stool Occult Blood (AARON) - Final HEMOCCULT NEGATIVE Complete Result Diagram: 10/19/17 1237 10/19/17 1237 Imaging Last Impressions Chest X-Ray 10/19/17 0000 Signed Impressions: Service Date/Time: Thursday, October 19, 2017 13:09 - CONCLUSION: 1. Persistent bibasilar airspace disease and probable associated effusions. Interval worsening on the right. 2. Heart size is borderline prominent. Prior CABG. Tyler Lopez MD Upper GI Series 10/15/17 0000 Signed Impressions: Service Date/Time: Sunday, October 15, 2017 15:22 - CONCLUSION: 1. Multiple episodes of gastroesophageal reflux were noted during the exam without evidence of hiatus hernia. 2. Multiple intraluminal filling defects in the stomach, possible bezoar, precludes evaluation of mucosal abnormalities of the stomach. 3. No evidence of gastric outlet obstruction. Ananth Messina MD Lower Extremity Ultrasound 10/08/17 0000 Signed Impressions: Service Date/Time: Sunday, October 08, 2017 13:55 - CONCLUSION: 1. No evidence of deep venous thrombosis. 2. Benign cystic structure in the anterior left upper thigh measuring up to 2 cm. Chris Vital MD Septic Shock Reassessment Septic shock perfusion: reassessment completed Assessment and Plan Problem List: (1) Cellulitis ICD Code: L03.90 - Cellulitis, unspecified (2) Leg wound, left ICD Code: S81.802A - Unspecified open wound, left lower leg, initial encounter (3) Leukocytosis ICD Code: D72.829 - Elevated white blood cell count, unspecified Status: Acute (4) Anemia ICD Code: D64.9 - Anemia, unspecified Status: Chronic (5) PVD (peripheral vascular disease) ICD Code: I73.9 - Peripheral vascular disease, unspecified Status: Chronic (6) DM Status: Chronic (7) Mitral regurgitation ICD Code: I34.0 - Nonrheumatic mitral (valve) insufficiency Status: Chronic (8) Systolic CHF, acute ICD Code: I50.21 - Acute systolic (congestive) heart failure Status: Chronic (9) Lactic acidemia ICD Code: E87.2 - Acidosis Status: Acute (10) Acute hypoxemic respiratory failure ICD Code: J96.01 - Acute respiratory failure with hypoxia Status: Acute (11) Dilated cardiomyopathy ICD Code: I42.0 - Dilated cardiomyopathy Status: Chronic (12) Severe mitral regurgitation ICD Code: I34.0 - Nonrheumatic mitral (valve) insufficiency Status: Chronic (13) Chronic systolic heart failure ICD Code: I50.22 - Chronic systolic (congestive) heart failure (14) Hypertension, benign ICD Code: I10 - Benign hypertension Status: Chronic (15) Type 2 diabetes mellitus ICD Code: E11.9 - Type 2 diabetes mellitus Status: Chronic (16) Non compliance w medication regimen ICD Code: Z91.14 - Noncompliance with medication regimen Status: Acute (17) Gastroparesis ICD Code: K31.84 - Gastroparesis Status: Chronic (18) Neuropathy ICD Code: G62.9 - Neuropathy Status: Acute (19) Peripheral vascular disease ICD Code: I73.9 - Peripheral vascular disease Status: Chronic (20) Abdominal pain ICD Code: R10.9 - Abdominal pain Status: Acute (21) Malnourished ICD Code: E46 - Malnourished Status: Chronic (22) Hyperkalemia ICD Code: E87.5 - Hyperkalemia Status: Acute (23) Hyperlipemia ICD Code: E78.5 - Hyperlipidemia Status: Acute (24) Gastroparesis ICD Code: K31.84 - Gastroparesis Status: Acute (25) Osteoarthritis ICD Code: M19.90 - Osteoarthritis Status: Acute (26) Pneumonia ICD Code: J18.9 - Pneumonia, unspecified organism Status: Acute (27) Hypothyroidism ICD Code: E03.9 - Hypothyroidism, unspecified Status: Acute (28) Impaired mobility and activities of daily living ICD Code: Z74.09 - Other reduced mobility Status: Acute (29) RENE (acute kidney injury) ICD Code: N17.9 - Acute kidney failure, unspecified Status: Resolved Assessment and Plan Assessment This is 62-year-old male with septic shock, abdominal pain, worsening creatinine and elevation of LFTs most likely due to hypotension and acute systolic congestive heart failure. She currently having respiratory distress, at risk for possible intubation, as well as hemodynamic instability. Critical care medicine is asked to manage. Plan by systems: Neurologic: Chronic pain syndrome Degenerative arthritis of both cervical and lumbosacral spine Avoid Tylenol-containing medications in the setting of elevated liver enzymes Minimize sedative type medications Neuro checks per ICU protocol GCS currently 15 Hold Lyrica Respiratory: Acute hypoxemic respiratory distress Large left pleural effusion History tobacco use disorder COPD exacerbation Pneumonia Maintain O2 sat 90-92 % Duo nebs every 6 hours scheduled every 2 hours as needed 10/19 chest [id number] airspace disease worsening on the right, effusions 10/19-stat echo-large left pleural effusion 10/19-thoracentesis performed 1100 [id number] pleural fluid analysis Bronchodilators every 6 hours scheduled every 2 hours as needed ABGs and chest x-rays as clinically indicated Repeat chest x-ray in am Patient currently on high flow nasal cannula weaned to FiO2 of 50%-97% Cardiovascular: Septic shock H/O CABG Acute systolic congestive heart failure Severe mitral regurgitation Cardiomyopathy Severe PVD Hyperlipidemia Hypertension Maintain MAP > 65 mmHg Hold antihypertensive medications in the setting of septic shock-hold carvedilol Statins in the setting of elevated liver enzyme Will resume aspirin and Plavix if okayed with GI Patient may require vasopressors-currently MAP 75-82 4/6 stat limited echo-no pericardial effusion, left large pleural effusion, EF 20-25%, PAP 41, moderate TR severe MR, intraventricular conduction delay, severely decreased LV systolic function Renal: Acute on chronic kidney disease Insert and maintain Pelaez .Patient is on diuretics -- Strict I/Os FEN/GI: Electrolyte derangement Abdominal pain History of chronic reflux with esophageal ulcerations and dilation Elevated LFTs-shock liver secondary to hypoperfusion syndrome and congestive heart failure Acute on chronic kidney disease Monitor liver enzymes Obtain CMP in am Replete electrolytes per ICU protocol GI following-patient is status post EGD on 10/19-and Plavix currently on hold per GI recommendations will resume per their recommendations AST->1236->1041, ALT 1053-> 1087, Alk Phos 293->243 Follow-up CT of the abdomen and pelvis Monitor creatinine-worsening secondary to hypoperfusion state 1.86->211 today Heme/ID: Leukocytosis Pneumonia Chronic anemia Lactic acidemia Follow up repeat blood culture Obtain urine antigens Legionella and strep pneumo Lactic acid 3.5, continue to trend levels ID following Patient placed on Zosyn, micafungin, and vancomycin Endocrine: Hypothyroidism Continue Synthroid 100 mics/day Glucose monitoring per ICU protocol, low-dose regimen -- SSI Prophylaxis: GI Prophylaxis [ ] DVT Prophylaxis -- SCDs Chemical DVT prophylaxis placed on hold for possible procedures. Defer to GI when to resume Lines: Peripheral IVs 2 Dispo: my billing statement This patient remains critically ill with one or more organ systems which are or may become a threat to life. I have spent in excess of 60 minutes discontinuously in the care and management of this patient. This time is exclusive of procedures, and includes, but is not limited to, evaluation of the patient, review of the medical record, discussions with family, consultants, nursing staff, or respiratory therapy, and documentation in the medical record. Code Status Full Discussed Condition With Dr. Sierra, Patient and ELECTRICIAN SUBSTATION SUPERVISOR (Monserrat) at bedside Problem Qualifiers (1) Cellulitis: (2) Leukocytosis: Qualified Codes: D72.825 - Bandemia (3) Anemia: (4) Abdominal pain: Qualified Codes: R10.84 - Generalized abdominal pain (5) Malnourished: Qualified Codes: E44.1 - Mild protein-calorie malnutrition Camilla Evangelista MD Oct 19, 2017 14:54
[2017-10-19] MEDS ORDERED: LIDOCAINE 1%/EPINEPHrine 1:100,000 SOLN 20 ML VIAL ONE (15:00)
[2017-10-19] MEDS ORDERED: LIDOCAINE 1%/EPINEPHrine 1:100,000 SOLN 30 ML VIAL ONE (15:00)
--- NOTE | 2017-10-19 16:40 | PD.PROCEDR ---
Procedure Note Procedure Thoracentesis Date: 10/19/2017 Time: 1430 Indication: Large pleural effusion Attending: Camilla Evangelista MD A time-out was completed verifying correct patient, procedure, site, positioning, and special equipment if applicable. The patient left side was prepped and draped in a sterile manner after the appropriate infiltration level was confirmed by ultrasound. 1% lidocaine was used anesthetize the surrounding skin. A finder needle was then used to locate fluid and clear yellow fluid was obtained. A 10-blade scalpel used to make the incision. The thoracentesis catheter was then threaded without difficulty. The patient had 1100 cc of clear yellow fluid removed. post- procedure chest x-ray was ordered and the fluid will be sent for several studies. Estimated Blood Loss: < 3cc The patient tolerated the procedure well and there were no complications. Camilla Evangelista MD Oct 19, 2017 16:40
--- NOTE | 2017-10-19 16:50 | RADRPT ---
EXAM DATE/TIME: 10/19/2017 16:34 [facility] COMPARISON: CHEST SINGLE AP, October 19, 2017, 13:09. INDICATIONS : Status post left sided thoracentesis. MEDICAL HISTORY : Diabetes mellitus type II. SURGICAL HISTORY : CABG. Right above the knee amputation. ENCOUNTER: Subsequent ACUITY: 1 day PAIN SCORE: 0/10 LOCATION: chest FINDINGS: Decreased opacity in the left lower hemithorax with residual areas of patchy consolidation. No evide nce of pneumothorax semierect view. Ill-defined areas of opacity in the right mid and lower lung sim ilar to prior examination. The heart is stable in size. CONCLUSION: Decreased opacity in the left lower chest status postthoracentesis with residual areas of patchy infi ltrate. No evidence of pneumothorax. Ananth Messina MD on October 19, 2017 at 16:46 Board Certified Radiologist. This report was verified electronically.
[2017-10-19] MEDS: FERROUS SULFATE 325 MG (65 MG ELEMENTAL IRON) TAB PO SCH (17:00)
[2017-10-19 17:15] LABS: TOTAL PROTEIN,PLEURAL FLUID 0.9 GM/DL
--- NOTE | 2017-10-19 18:19 | HHI.PR ---
Subjective Remarks I received a call from the GI attending today patient had low blood pressure after the procedure Also discussed with the anesthesiologist we agreed on sending patient to ICU I went to see the patient he looked fatigued pale Blood pressure was in the 90s over 50s after he started on IV fluids, I discussed with Dr. Evangelista the head of measurement & insights as well as Dr. Collazo the ID Patient seems to be in shock liver, multiorgan failure, Dr. Evangelista graciously accepted the patient Objective Vitals Vital Signs Date Time Temp Pulse Resp B/P (MAP) Pulse Ox O2 Delivery O2 Flow Rate FiO2 10/19/17 13:33 96 High Flow Nasal Cannula 25.00 80 10/19/17 12:07 94 Nasal Cannula 4.00 10/19/17 10:59 64 16 80/61 (67) 100 Nasal Cannula 2 10/19/17 10:56 66 16 85/58 (67) 100 Nasal Cannula 2 10/19/17 10:51 66 16 88/61 (70) 100 Nasal Cannula 2 10/19/17 10:50 64 16 76/55 (62) 100 Nasal Cannula 2 10/19/17 10:47 97.8 66 16 75/51 (59) 99 10/19/17 10:45 65 16 68/57 (61) 100 Nasal Cannula 2 10/19/17 10:41 97.8 68 16 75/51 (59) 100 Nasal Cannula 2 10/19/17 08:00 97.3 68 12 82/56 (65) 96 10/19/17 04:00 98.2 70 17 91/57 (68) 94 10/19/17 03:59 68 10/19/17 00:00 Room Air 10/19/17 00:00 97.2 66 18 104/63 (77) 94 10/18/17 23:53 69 10/18/17 20:00 97.5 74 18 117/73 (88) 97 10/18/17 19:00 Room Air I/O 10/18/17 10/18/17 10/18/17 10/19/17 10/19/17 10/19/17 07:00 15:00 23:00 07:00 15:00 23:00 Intake Total 150 ml Output Total 300 ml Balance -300 ml 150 ml Other 150 ml Output Urine Total 300 ml # Bowel Movements 3 Result Diagram: 10/19/17 1237 10/19/17 1237 Imaging Last Impressions Upper GI Series 10/15/17 0000 Signed Impressions: Service Date/Time: Sunday, October 15, 2017 15:22 - CONCLUSION: 1. Multiple episodes of gastroesophageal reflux were noted during the exam without evidence of hiatus hernia. 2. Multiple intraluminal filling defects in the stomach, possible bezoar, precludes evaluation of mucosal abnormalities of the stomach. 3. No evidence of gastric outlet obstruction. Ananth Messina MD Lower Extremity Ultrasound 10/08/17 0000 Signed Impressions: Service Date/Time: Sunday, October 08, 2017 13:55 - CONCLUSION: 1. No evidence of deep venous thrombosis. 2. Benign cystic structure in the anterior left upper thigh measuring up to 2 cm. Chris Vital MD Objective Remarks GENERAL: This is frail 62 years old male looks fatigued after he had EGD SKIN: No rashes, warm and dry, scar of left scapular shoulder surgery in the past HEAD: Atraumatic. Normocephalic. EYES: Pupils equal round and reactive. Extraocular motions intact. No scleral icterus. ENT: Nose without bleeding, or drainage, Airway patent. NECK: Trachea midline. Supple CARDIOVASCULAR: Regular rate and rhythm without murmurs, gallops, or rubs. RESPIRATORY: Fair air entry bilaterally. No wheezes, rales, or rhonchi. GASTROINTESTINAL: Abdomen soft, non-tender, nondistended. Positive bowel sounds MUSCULOSKELETAL: Right AKA with prosthesis, lower extremity cellulitis and gauze NEUROLOGICAL: Awake and alert. Moves all extremity. Normal speech.no focal neurological deficit A/P Assessment and Plan 62 years old admitted to the hospital with Left lower extremity severe cellulitis with superficial wounds- Continue on IV Vancomycin. ID ff Patient with leukocytosis and elevated lactic acid, improved Blood cx show no growth so far wound care team ff- daily Severe GERD symptoms acute liver failure inc ast/alt >> GI ff History of Barretts s/p EGD dilatation in 2016 history of esophageal dilation in the past x 2 - started Protonix 40 mg po bid, sucralfate - per patient - - hold ASA/Plavix and heparin SQ for EGD- History of Severe PVD s/p right AKA Followed by Dr. Balderas. Evaluated May [address] Herbert - not amenable to any open reconstruction, however, he would be a candidate for possible endovascular balloon angioplasty into the distal trifurcation and popliteal artery. Seen this admission- no plans for surgery on Plavix CHF exacerbation/mitral valve regurgitation- underlying CMP- EF 25% clinically not in failure CAD/hypertension/hyperlipidemia Chest x-ray significant for small effusions Patient's previous admission revealed he is not a candidate for mitral valve replacement Strict I&Os Continue supplemental oxygen to maintain O2 sats >92% Lisinopril 2.5 mg po daily- started 10/12- ff BMP- Hold for now till creatinine stabilizes restarted on on Lasix to 20 mg daily restart Lisinorpil at 2.5 mg daily when kidney function improved RENE- stable, non oliguric- creatinine trended down HYperkalemia- resolved avoid nephrotoxic agents - Hold HUMBLE - Lasix 20 mg po daily - ff BMP Diabetes mellitus- good readings- some low readings- erratic due to poor po- per pt po intake slightly improving A1C from 08/2017- 8.5 Levemir, sliding scale, add preprandial as tolerated Hypothyroidism - synthroid 100 mcg po daily COPD, not in acute exacerbation Continue on Symbicort Duonebs prn Continue to monitor respiratory status Iron deficiency anemia stool guiace negative ferrous sulfate 325 mg po bid on PPI 10/19: Patient just came from EGD, hypertension, transaminitis mostly shock liver , infectious versus due to hypotension, discussed with GI, discussed with ID, discussed with intensive care attending Dr. evangelista, multiple organ failure with RENE liver failure, hypotension, stat CBC BMP, IV fluid bolus ordered, will transfer to head of measurement & insights service for further critical care management. Discharge Planning Not ready for any discharge at this point Brianna Sierra MD Oct 19, 2017 18:19
[2017-10-19 18:22] LABS: PLEURAL FLUID HISTIOCYTES 3 %; PLEURAL FLUID LYMPHS 55 %; PLEURAL FLUID MESOTHELIAL 2 %; PLEURAL FLUID POLYS (SEGS) 40 %; PLEURAL FLUID RBC 489 /MM3 (0-0); PLEURAL FLUID WBC 114 /MM3 (0-10)
[2017-10-19] MEDS: NORTRIPTYLINE HCL 25 MG CAP PO SCH (21:00)
[2017-10-19] MEDS ORDERED: CARVEDILOL 3.125 MG TAB PO SCH (21:00)
[2017-10-19] MEDS ORDERED: EPINEPHrine HCL (1:10,000) 1 MG/10 ML SYRINGE ONE ×3 (23:39→23:52)
[2017-10-20] MEDS ORDERED: CALCIUM CHLORIDE 10% SOLN 1 GRAM/10 ML SYR IV ONE
[2017-10-20] MEDS ORDERED: ATROPINE SULFATE 1 MG/10 ML SYRINGE IV ONE
[2017-10-20] MEDS ORDERED: SODIUM BICARBONATE 8.4% INJ 50 MEQ/50 ML SYR IV ONE
[2017-10-20] MEDS ORDERED: DOPamine 800 MG/500 ML INJ 500 ML IV ONE
[2017-10-20] MEDS ORDERED: EPINEPHrine HCL (1:10,000) 1 MG/10 ML SYRINGE IV ONE
--- NOTE | 2017-10-20 00:09 | PD.PROCEDR ---
Procedure Note Procedure Date: 10/19/17 Procedure: Cardiopulmonary resucitation Indication: PEA cardiac arrest Details of procedure: Called to patients bedside for unresponsiveness. He was bradycardic with rate in 40s and unable to obtain BP by cuff. He had spontaneous respirations with breath sounds bilaterally and prominent JVD. Gave atropine 0.5 mg IV and began to initiate dopamine at 20 mcg/kg/min when patient became pulseless. Began bagging patient immediately and initiated CPR. Per ACLS protocol pt received CPR, manual bag-valve ventilation, epinephrine x11, , CaCl2 x1, bicarb x2 amps. He was intubated, refer to separate procedure note. He intermittently had brief periods of ROSC x2 and bedside ultrasound was performed after initial ROSC which demonstrated extremely low EF with no e/o tamponade. Sliding lung sign present bilaterally. Attempted L femoral art line placement and vein was accessed and single lumen CVL placed there. He developed large amount of hemoptysis in ETT. After 38 minutes of resuscitation, unable to restore spontaneous circulation. Bedside ultrasound demonstrated cardiac standstill with evidence of "snow storm" appearance c/w developing thrombi RV >LV. Pt was pronounced at 00:01 hours on 10/20/17. The family was notified by [facility] [place] Charge Nurse, Trina Davison. Arlin Tierney MD Oct 20, 2017 00:09
--- NOTE | 2017-10-20 00:09 | PD.PROCEDR ---
Procedure Note Procedure DATE: 10/20/17 CENTRAL LINE PLACEMENT: L femoral vein. INDICATION: Central venous access CONSENT Procedure was done emergently as patient was getting CPR and unable to provide consent. DESCRIPTION OF THE PROCEDURE The patient was placed in supine position. The skin was cleansed with Chloraprep x3. Additional barrier precautions included large sterile drape, sterile gloves, sterile gown, face mask, and hat. 1 % lidocaine was used for local anesthesia. CPR was ongoing and L femoral site was visualized with ultrasound. Was attempting to place femoral art line for hemodynamic monitoring and flash from L femoral vein occurred on initial attempt so advanced guidewire and tract dilated. Using Seldinger technique a single lumen central venous catheter was advanced. The guide wire was removed. The port had good return of dark venous blood and flushed easily with saline. The central line was secured with 2.0 silk. A sterile dressing with antibiotic disc was applied. ESTIMATED BLOOD LOSS: Minimal COMPLICATIONS: No apparent complications. Arlin Tierney MD Oct 20, 2017 00:09
--- NOTE | 2017-10-20 00:09 | PD.PROCEDR ---
Procedure Note Procedure PROCEDURE NOTE PROCEDURE: Endotracheal intubation INDICATION: Respiratory failure DETAILS OF PROCEDURE: Patient was being bagged by RT with oropharyngeal airway in place and I was performing a jaw thrust and maintaining mask seal while CPR was ongoing. Direct laryngoscopy was performed with a 4 An laryngoscope blade and a grade I Cormack-Lehane view was obtained. On single attempt a size 8.0 endotracheal tube was visualized passing through the cords. Correct placement was confirmed with colorimetric CO2 detector. Breath sounds were equal bilaterally. No sounds auscultated over the stomach. The endotracheal tube was secured with a commercial tube rodriguez at a depth of 23 cm at the lips. The patient was bagged. Arlin Tierney MD Oct 20, 2017 00:09
[2017-10-21] MEDS ORDERED: PHARMACY ORDERED LAB ONE (05:45)
[2017-10-23 16:18] LABS: AMYLASE BODY FLUID 5 U/L; AMYLASE BODY FLUID TYPE PLEURAL
== END 2017-10-20 00:01 | disposition expired | DRG 291 ==
LOC: NED 12:36 → NEDA 20:39 → NEPHCDU 23:33 → N04B 10-10 01:38 → HIME 10-19 11:15
PROVIDERS: ADMIT Hospitalist; ATTEND Hospitalist
PROC: 5A12012 Performance of Cardiac Output, Single, Manual (ICD-10-PCS; 2017-10-19)
PROC: 0BH17EZ Insertion of Endotracheal Airway into Trachea, Via Natural or Artificial Opening (ICD-10-PCS; 2017-10-19)
PROC: 04HL33Z Insertion of Infusion Device into Left Femoral Artery, Percutaneous Approach (ICD-10-PCS; 2017-10-19)
PROC: 02HV33Z Insertion of Infusion Device into Superior Vena Cava, Percutaneous Approach (ICD-10-PCS; 2017-10-19)
PROC: B54CZZA Ultrasonography of Left Lower Extremity Veins, Guidance (ICD-10-PCS; 2017-10-19)
PROC: 0CJS8ZZ Inspection of Larynx, Via Natural or Artificial Opening Endoscopic (ICD-10-PCS; 2017-10-19)
PROC: 0DJ08ZZ Inspection of Upper Intestinal Tract, Via Natural or Artificial Opening Endoscopic (ICD-10-PCS; 2017-10-19)
PROC: 0W9B3ZZ Drainage of Left Pleural Cavity, Percutaneous Approach (ICD-10-PCS; principal; 2017-10-19 09:43)
DX: I13.0 Hypertensive heart and chronic kidney disease with heart failure and stage 1 through stage 4 chronic kidney disease, or unspecified chronic kidney disease (principal); I50.23 Acute on chronic systolic (congestive) heart failure; J96.01 Acute respiratory failure with hypoxia; R65.21 Severe sepsis with septic shock; K72.00 Acute and subacute hepatic failure without coma; A41.9 Sepsis, unspecified organism; K31.84 Gastroparesis; J90 Pleural effusion, not elsewhere classified; J18.9 Pneumonia, unspecified organism; J44.0 Chronic obstructive pulmonary disease with (acute) lower respiratory infection; E11.41 Type 2 diabetes mellitus with diabetic mononeuropathy; N17.9 Acute kidney failure, unspecified; E44.1 Mild protein-calorie malnutrition; L03.116 Cellulitis of left lower limb; E87.2 Acidosis; R04.2 Hemoptysis; L97.829 Non-pressure chronic ulcer of other part of left lower leg with unspecified severity; R13.10 Dysphagia, unspecified; E11.22 Type 2 diabetes mellitus with diabetic chronic kidney disease; Z89.611 Acquired absence of right leg above knee; Z95.1 Presence of aortocoronary bypass graft; I25.10 Atherosclerotic heart disease of native coronary artery without angina pectoris; I34.0 Nonrheumatic mitral (valve) insufficiency; I25.2 Old myocardial infarction; E03.9 Hypothyroidism, unspecified; E78.5 Hyperlipidemia, unspecified; E11.51 Type 2 diabetes mellitus with diabetic peripheral angiopathy without gangrene; E11.65 Type 2 diabetes mellitus with hyperglycemia; D50.9 Iron deficiency anemia, unspecified; I42.0 Dilated cardiomyopathy; E11.43 Type 2 diabetes mellitus with diabetic autonomic (poly)neuropathy; E87.5 Hyperkalemia; N18.9 Chronic kidney disease, unspecified; I46.9 Cardiac arrest, cause unspecified; I51.3 Intracardiac thrombosis, not elsewhere classified; I83.009 Varicose veins of unspecified lower extremity with ulcer of unspecified site; M50.30 Other cervical disc degeneration, unspecified cervical region; M51.36 Other intervertebral disc degeneration, lumbar region; M19.90 Unspecified osteoarthritis, unspecified site; H91.90 Unspecified hearing loss, unspecified ear; E11.622 Type 2 diabetes mellitus with other skin ulcer; T18.2XXA Foreign body in stomach, initial encounter; K21.0 Gastro-esophageal reflux disease with esophagitis; G89.4 Chronic pain syndrome; F17.210 Nicotine dependence, cigarettes, uncomplicated; F32.9 Major depressive disorder, single episode, unspecified; F41.9 Anxiety disorder, unspecified; Z68.22 Body mass index [BMI] 22.0-22.9, adult; Z79.4 Long term (current) use of insulin; Z82.49 Family history of ischemic heart disease and other diseases of the circulatory system; Z83.3 Family history of diabetes mellitus; Z91.14 Patient's other noncompliance with medication regimen
CPT/HCPCS: 31500; 32554; 36556; 71045; 74241; 76937; 80048; 80053; 80076; 80202; 82010; 82150; 82272; 82550; 82565; 82607; 82728; 82746; 82805; 82945; 82947; 82948; 83540; 83550; 83605; 83615; 83690; 83880; 83986; 84155; 84157; 84484; 85025; 85610; 85730; 87015; 87040; 87070; 87102; 87116; 87205; 87206; 88112; 89051; 92950; 93005; 93306; 93308; 93971; 94664; 96361; 96374; J0171; J0456; J0461; J0692; J1265; J1644; J1815; J1940; J2248; J2370; J2543; J3370; J7030; J7040; J7050; J7120; Q9963; Q9967